=== PATIENT | female | born 1945 | race African-American/Black ===

== ENCOUNTER 2017-07-25 08:54 | Inpatient (IN) | payer MEDICARE, MEDICAID ==
--- NOTE | 2017-07-25 09:50 | RAD ---
PORTABLE CHEST 1 VIEW: Date: 07/25/17 Time: 0935 hours HISTORY: Dyspnea. FINDINGS: Comparison made with exam of 06/07/16. There are changes of median sternotomy. The heart is enlarged. The aorta is tortuous. The lungs are e xpanded without confluent areas of consolidation, pneumothorax, cheng pulmonary edema, or pleural eff usions. IMPRESSION: No acute process. POS: H
[2017-07-25 10:30] LABS: Troponin I 0.147 ng/mL (< 0.028)
[2017-07-25 10:37] LABS: ALT (SGPT) 27 U/L (8-55); AST (SGOT) 26 U/L (5-34); Albumin 3.6 g/dL (3.4-4.8); Alkaline Phosphatase 104 U/L (40-150); Anion Gap 16 mmol/L (10-20); BUN (Urea Nitrogen) 14 mg/dL (9.8-20.1); Bilirubin, Total 1.9 mg/dL (0.2-1.2); Calc. Creatinine Clearance 0 mL/min (70-130); Calcium 9.5 mg/dL (7.8-10.44); Carbon Dioxide 24 mmol/L (23-31); Chloride 102 mmol/L (98-107); Estimated GFR-MDRD 88; Globulin 4.1 g/dL (2.4-3.5); Glucose 105 mg/dL (83-110); Potassium 3.7 mmol/L (3.5-5.1); Protein, Total 7.7 g/dL (6.0-8.3); Sodium 138 mmol/L (136-145)
[2017-07-25 10:55] LABS: Hemoglobin 12.9 g/dL (12.0-16.0); Mean Corpuscular Volume 98.7 fl (81.0-99.0); Mean Platelet Volume 10.1 fL (7.4-10.4); Red Blood Cell (RBC) Count 4.32 mill/uL (4.20-5.40); White Blood Cell (WBC) Count 4.3 thou/uL (4.8-10.8)
[2017-07-25 10:57] LABS: Band 2 % (5-11); Lymphocytes 31 % (21-51); Monocytes 5 % (0-10); Neutrophil 62 % (42-75); Platelet Clumps MARKED
[2017-07-25 10:58] LABS: PLT Morphology Comment PLT clumps seen-ADEQ
[2017-07-25 10:59] LABS: MDiff Complete? YES
[2017-07-25] MEDS ORDERED: ISOVUE-370 76%-LOCM 1 ML ONE (11:13)
[2017-07-25] MEDS ORDERED: Furosemide 40 MG/4 ML VIAL ONE (11:43)
[2017-07-25] MEDS ORDERED: Dextrose 50% Abboject 50 ML SYRINGE SLOW IVP PRN (13:56)
[2017-07-25] MEDS ORDERED: Dextrose 5% in Water 1,000 ML IV PRN (13:56)
[2017-07-25 14:21] LABS: Troponin I 0.173 ng/mL (< 0.028)
--- NOTE | 2017-07-25 15:34 | HP ---
DATE OF ADMISSION: 07/25/2017 PRIMARY CARE PHYSICIAN: Dr. Xavier Leonard CHIEF COMPLAINT: Worsening shortness of breath and lower extremity swelling. HISTORY OF PRESENT ILLNESS: Ms. Smallwood is a very pleasant 72-year-old female with past medical histo ry of coronary artery disease, status post coronary artery bypass graft, as well as hypertension, dys lipidemia, diabetes, and peripheral vascular disease, who presented to the ER with the above-mentione d complaints. History is mainly obtained by the patient herself and electronic medical records have been reviewed. Case has been discussed with the admitting ER physician, Dr. Curtis. According to Ms. Smallwood, she was recently taken off of lot of her home medications including the wate r pill by her primary care physician, because of low blood pressure. This was done about a week ago. She started to feel bad about 4 days ago with worsening shortness of breath and increased swelling in her legs. She has also been feeling ill for the same amount of time with some increased cough, ge neralized weakness, and achiness. She denies any fever or chills. She denies any sick contacts. Sh e endorses orthopnea and PND. She denies any specific chest pain per se. With these symptoms, she p resented to the ER. In the emergency room, she was hemodynamically stable and had good oxygen saturation on room air. He r blood pressure was 115/80 with a heart rate in the 80s. Further workup included a chest x-ray, whi ch showed pulmonary vascular congestion and she was also found to have elevated BNP. For this reason , she was diagnosed with acute CHF and received Lasix x1 and is now being admitted with the same diag nosis. She was last admitted to our facility in 05/2016 under Cardiology Service for complaints of chest shai n and underwent a cardiac catheterization at that time. It was suspected that she has suffered an ST -elevation MS at that time. PAST MEDICAL HISTORY: 1. Coronary artery disease, status post coronary artery bypass graft. 2. Diabetes mellitus. 3. Dyslipidemia. 4. Morbid obesity. 5. Hypertension. 6. Peripheral vascular disease. PAST SURGICAL HISTORY: 1. Hysterectomy. 2. [place] [address] Day. 3. Carotid endarterectomy, 2016, with Dr. Carter. ALLERGIES: PENICILLIN. SOCIAL HISTORY: She has quit smoking more than 10 years ago. No history of drug, tobacco, or alcoho l abuse. She is and lives with her family. FAMILY HISTORY: Negative for any premature coronary artery disease. CURRENT MEDICATIONS: Unknown. The patient does not remember the name of her medications and she has not brought the medication list with her. REVIEW OF SYSTEMS: The following complete review of systems was negative, unless otherwise mentione d in the HPI or below: Constitutional: Weight loss or gain, ability to conduct usual activities. S kin: Rash, itching. Eyes: Double vision, pain. ENT/Mouth: Nose bleeding, neck stiffness, pain, t enderness. Cardiovascular: Palpitations, dyspnea on exertion, orthopnea. Respiratory: Shortness o f breath, wheezing, cough, hemoptysis, fever, or night sweats. Gastrointestinal: Poor appetite, abd ominal pain, heartburn, nausea, vomiting, constipation, or diarrhea. Genitourinary: Urgency, freque ncy, dysuria, nocturia. Musculoskeletal: Pain, swelling. Neurologic/Psychiatric: Anxiety, depress ion. Allergy/Immunologic: Skin rash, bleeding tendency. It is negative except for those mentioned in the history and physical. LABORATORY EXAMINATION: WBC is 4.3, hemoglobin 12.9, platelet count has not been reported, because t he platelets have clumped. D-dimer 0.58. Serum chemistry is unremarkable. Total bilirubin high at 1.9. Initial troponin 0.147 with CK-MB of 2.0. BNP almost 3000. Chest x-ray, by my review, has mil d pulmonary vascular congestion. A 12-lead EKG reportedly has no acute ST or T-wave changes. It is not available for my review at this time. PHYSICAL EXAMINATION: VITAL SIGNS: Blood pressure 115/80, saturating 98% on room air, heart rate in the 80s, afebrile. GENERAL EXAMINATION: In no acute distress. She reports that she is feeling much better now. Awake, alert, oriented x3. HEENT EXAMINATION: Mucous membrane is moist and pink. No oropharyngeal exudate or erythema. Head i s normocephalic, atraumatic. Pupils are equal and reactive to light and accommodation. Extraocular movements intact. NECK: Supple without any lymphadenopathy, JVD, or bruit. CHEST: Clear to auscultation without any wheezing, rales, or rhonchi. HEART: Rate and rhythm are regular without any murmur, rubs, or gallops. ABDOMEN: Obese, soft, nontender, nondistended. EXTREMITIES: Show pitting edema bilaterally extending from her toes to mid king. NEUROLOGICAL EXAMINATION: Nonfocal. SKIN: Free of any rashes or bruises. Feels warm and dry to touch. PSYCHIATRIC: Normal affect. IMPRESSION AND PLAN: 1. Dyspnea. This is most likely secondary to acute congestive heart failure exacerbation, as the pa yeny was recently taken off of her diuretics due to low blood pressure. We will restart her Lasix a nd she has received 1 dose of IV Lasix in the emergency room. We will give her one more dose of IV L asix today and continue the same tomorrow as well. We will repeat an echocardiogram, as her baseline cardiac function is unknown to me at this time. We will consult Cardiology for further recommendati on. Dr. More is her waste minimization technician. Also, given her elevated D-dimer, we will go ahead and obtain a C T angio to rule out pulmonary embolism, but the clinical possibility of the same is less. Also, [facility] a respiratory viral pathogen panel by PCR to rule out influenza, as it is highly prevalent in the [facility] at this time. Nothing to suggest pneumonia. We will monitor strict I's and O's and start h er on fluid-restricted heart healthy diet. We will also consult cardiac rehabilitation and [facility]. Continue her home medications, which include aspirin, statin, beta jerica, and FADIA inh ibitors. This will be reconciled once the list is available. 2. History of hypertension. Once again restart her home medications as tolerated. The patient give s history of low blood pressure and her medications will be titrated according to her blood pressure response in the hospital. 3. History of coronary artery disease. The patient used to be on aspirin along with statin, Plavix, FADIA inhibitor, and beta jerica. Once the dosages are confirmed, we will restart all of these. 4. Diabetes mellitus. We will restart her home medications once confirmed. For now, she will be st arted on insulin sliding scale with frequent Accu-Cheks. 5. Elevated troponin, most likely demand ischemia from acute congestive heart failure exacerbation. Continue to trend serial cardiac enzymes and start her on aspirin and reconfirm her home medications and restart them as well. Echocardiogram has been ordered as above. 6. Dyslipidemia. We will recheck her lipid panel and continue her statins. It seems like she was o n a statin along with Zetia. 7. Deep venous thrombosis and gastrointestinal prophylaxis. 8. P.r.n. medication orders. 9. Code status: FULL CODE, discussed with the patient. DISPOSITION: Ms. Smallwood is currently being admitted to the hospital for worsening dyspnea and possib le acute congestive heart failure exacerbation. Further management will depend upon her clinical cou rse. ESTIMATED LENGTH OF STAY: At this time is at least 2-3 midnights.
--- NOTE | 2017-07-25 15:41 | CT ---
CT ARTERIOGRAM CHEST WITH IV CONTRAST AND 3D MIP IMAGING: HISTORY: Dyspnea. Abnormal D-dimer. FINDINGS: There is good contrast opacification of the pulmonary arteries. Thoracic aorta is not yet opacified. There is calcification in the arterial structures. A small amount of bilateral pleural fluid is present. No pneumothorax or lobar consolidation. Nonen larged, nonspecific lymph nodes are scattered about the mediastinum. There are postoperative changes of the mediastinum. The inferiormost images show a hyperdense stone in the gallbladder lumen. IMPRESSION: 1. No CT evidence of pulmonary embolus. 2. Small bilateral pleural effusions. Cause is not evident. 3. Atherosclerosis. 4. Cholelithiasis. POS: [facility]
[2017-07-25] MEDS ORDERED: cloNIDine 0.1 MG TAB PO PRN (16:08)
[2017-07-25] MEDS ORDERED: Calcium Carbonate 500 MG ChewTAB PO PRN (16:08)
[2017-07-25] MEDS ORDERED: Senokot 8.6 MG TAB PO PRN (16:08)
[2017-07-25] MEDS ORDERED: Ondansetron HCl/PF 4 MG/2 ML Vial IVP PRN ×2 (16:08)
[2017-07-25] MEDS ORDERED: Acetaminophen 325 MG TAB PO PRN (16:08)
[2017-07-25] MEDS ORDERED: Furosemide 40 MG/4 ML VIAL SLOW IVP SCH (16:08)
[2017-07-25] MEDS ORDERED: Diabetic Tussin 200 MG/10 ML UDCUP PO PRN (16:08)
[2017-07-25] MEDS ORDERED: Nitroglycerin 0.4 MG TAB (25 Tab Bottle) SL PRN (16:08)
[2017-07-25] MEDS ORDERED: Loratadine 10 MG TAB PO PRN (16:08)
[2017-07-25] MEDS ORDERED: Mag-Al 1200 mg/1200 mg/30 ML UDCUP PO PRN (16:08)
[2017-07-25] MEDS ORDERED: hydrALAZINE 20 MG/ML VIAL SLOW IVP PRN (16:08)
[2017-07-25] MEDS ORDERED: Benzonatate 100 MG CAP PO PRN (16:08)
[2017-07-25] MEDS ORDERED: Bisacodyl 5 MG TAB PO PRN (16:08)
[2017-07-25 17:48] LABS: Troponin I 0.185 ng/mL (< 0.028)
[2017-07-25] MEDS ORDERED: FLU VACC TS2017-18 (>65YR) 0.5 ML SYRINGE IM ONE (18:30)
[2017-07-25] MEDS: traMADol HCl 50 MG TAB PO PRN ×2 (18:47→22:18)
[2017-07-25] MEDS: Famotidine 20 MG TAB PO SCH (22:18)
[2017-07-26] MEDS ORDERED: diphenhydrAMINE 12.5 MG/5 ML UDCUP PO PRN (02:50)
[2017-07-26] MEDS: traMADol HCl 50 MG TAB PO PRN (02:55)
--- NOTE | 2017-07-26 03:55 | CON ---
DATE OF CONSULTATION: 07/25/2017 REASON FOR CONSULTATION: Shortness of breath. PRIMARY AUTOMOTIVE ALIGNMENT SPECIALIST: Dr. Audie More. HISTORY OF PRESENT ILLNESS: Ms. Smallwood is a very pleasant 72-year-old woman who is a patient of Dr. Audie More. She was last seen in 2015. Her last catheterization was dated 06/03/2015. She did have an 80% mid LAD, 10% left main, 40% proximal LAD and 100% of the proximal RCA, vein graft to the first OM and second OM patent graft to the RCA patent, HACKETT to the LAD patent, although the left subclavia n artery has no disease. She recently states she has had increased shortness of breath over the last several weeks. No chest pain or pressure noted. She has been seen and evaluated by Dr. Xavier Leonard where he had been treatin g her as an outpatient. She did develop hypotension and her Lasix had been discontinued. She does s christiansen she began to accumulate fluid. PAST MEDICAL HISTORY: CAD status post bypass surgery, hyperlipidemia, diabetes mellitus, PVD, hyster ectomy, bypass x4, carotid endarterectomy. ALLERGIES: PENICILLIN. SOCIAL HISTORY: No current tobacco or alcohol use. REVIEW OF SYSTEMS: Ten-point review of systems is reviewed and is as above negative. PHYSICAL EXAMINATION: VITAL SIGNS: Blood pressure 114/62, pulse 89, temperature 98.4. GENERAL: Patient is a pleasant female who is in no acute distress. The patient appears his/her stat ed age. NEUROLOGIC: The patient is alert and oriented times 3 with no focal neurologic deficits. HEENT: Sclerae without icterus. Mouth has moist mucous membranes with normal pallor. NECK: No JVD. Carotid upstroke brisk. No bruits bilaterally. LUNGS: Clear to auscultation with unlabored respirations. BACK: No scoliosis or kyphosis. CARDIAC: Regular rate and rhythm with normal S1 and S2. No S3 or S4 noted. No significant rubs, murmurs, thrills, or gallops noted throughout the precordium. PMI is not displa geetha. There is no parasternal heave. ABDOMEN: Soft, nontender, nondistended. No peritoneal signs present. No hepatosplenomegaly. No abnormal striae. EXTREMITIES: A 2+ pitting edema. SKIN: No gross abnormalities. PERTINENT LABORATORY DATA: Hemoglobin 12.9, hematocrit 40.2, creatinine 0.78, peak troponin 0.185. IMPRESSION: 1. Shortness of breath. 2. Likely acute on chronic diastolic heart failure. 3. Coronary artery disease. 4. Status post bypass surgery. RECOMMENDATIONS: Ms. mSallwood has been appropriately placed on aspirin in addition to IV Lasix. We wi ll increase Lasix from 20 IV to 40 IV. She would benefit from beta jerica, but we will reassess aft er she has received Lasix. I would recommend an echo with Doppler. Further recommendations per Dr. Audie More in a.m.
[2017-07-26 05:31] LABS: Anion Gap 15 mmol/L (10-20); BUN (Urea Nitrogen) 16 mg/dL (9.8-20.1); Calc. Creatinine Clearance 85 mL/min (70-130); Calcium 9.3 mg/dL (7.8-10.44); Carbon Dioxide 27 mmol/L (23-31); Chloride 99 mmol/L (98-107); Estimated GFR-MDRD 75; Glucose 199 mg/dL (83-110); Potassium 3.8 mmol/L (3.5-5.1); Sodium 137 mmol/L (136-145)
[2017-07-26] MEDS ORDERED: Furosemide 20 MG/2 ML VIAL SLOW IVP SCH ×2 (06:00→12:30)
[2017-07-26 06:13] LABS: #Lymphocytes 1.4 thou/uL (1.20-3.40); #Monocytes 0.4 thou/uL (0.11-0.59); #Neutrophils 3.2 thou/uL (1.40-6.50); %Basophils 0.4 % (0.0-1.0); %Eosinophils 0.1 % (0.0-10.0); %Lymphocytes 28.3 % (21.0-51.0); %Monocytes 7.3 % (0.0-10.0); %Neutrophils 63.8 % (42.0-75.0); Hemoglobin 12.1 g/dL (12.0-16.0); MDiff Complete? YES; Mean Corpuscular HGB CONC 32.1 g/dL (32.0-36.0); Mean Corpuscular Volume 96.6 fl (81.0-99.0); Mean Platelet Volume 5.4 fL (7.4-10.4); PLT Morphology Comment Appears Adequate; Platelet Clumps SLIGHT; White Blood Cell (WBC) Count 4.9 thou/uL (4.8-10.8)
[2017-07-26] MEDS: Famotidine 20 MG TAB PO SCH ×2 (08:07→20:43)
[2017-07-26] MEDS: Enoxaparin Sodium 40 MG/0.4 ML SYRINGE SC SCH (08:07)
[2017-07-26] MEDS ORDERED: Aspirin 325 mg Enteric Coated Tablet PO SCH (09:00)
[2017-07-26] MEDS: HumaLOG 300 UNITS/3 ML VIAL SC PRN ×2 (11:41→18:13)
[2017-07-26] MEDS ORDERED: Metolazone 5 MG TAB PO SCH (12:30)
[2017-07-26] MEDS: Furosemide 40 MG/4 ML VIAL SLOW IVP SCH (13:11)
--- NOTE | 2017-07-26 15:27 | PDOC.PN ---
- Subjective Encounter Start Date: 07/26/17 Encounter Start Time: 15:25 Subjective: feels much better today. -: breathing easier - Objective MAR Reviewed: Yes Vital Signs & Weight: Vital Signs (12 hours) Temp Pulse Resp BP Pulse Ox 07/26/17 11:32 98.0 F 87 16 98/61 98 07/26/17 08:00 97.9 F 78 16 94/60 97 07/26/17 06:18 80 117/68 07/26/17 04:00 97.3 F L 93 16 97/60 98 Weight Admit Weight 208 lb Weight 207 lb 1.6 oz I&O: 07/25/17 07/26/17 07/27/17 06:59 06:59 06:59 Intake Total 480 Output Total 450 Balance 30 Result Diagrams: 07/26/17 04:41 07/26/17 04:41 Additional Labs: Accuchecks 07/26/17 07/26/17 07/25/17 11:19 06:14 20:01 POC Glucose 185 H 165 H 148 H Laboratory Tests 07/25/17 07/25/17 07/25/17 09:54 09:54 13:45 Troponin I 0.147 H 0.173 H B-Natriuretic Peptide 2942.1 H 07/25/17 07/26/17 17:18 04:41 Troponin I 0.185 H B-Natriuretic Peptide 2693.2 H Phys Exam - Physical Examination Constitutional: NAD HEENT: PERRLA, moist MMs, sclera anicteric, oral pharynx no lesions Neck: no nodes, no JVD, supple, full ROM Respiratory: no wheezing, no rales, no rhonchi, clear to auscultation bilateral Cardiovascular: RRR, no significant murmur Gastrointestinal: soft, non-tender, no distention, positive bowel sounds Musculoskeletal: no edema, pulses present Neurological: non-focal, normal sensation, moves all 4 limbs Psychiatric: normal affect, A&O x 3 Skin: no rash Dx/Plan (1) Acute hypoxemic respiratory failure Code(s): J96.01 - ACUTE RESPIRATORY FAILURE WITH HYPOXIA Status: Acute (2) Acute CHF Code(s): I50.9 - HEART FAILURE, UNSPECIFIED Status: Acute Qualifiers: Heart failure type: diastolic Qualified Code(s): I50.31 - Acute diastolic ( congestive) heart failure (3) Demand ischemia Code(s): I24.8 - OTHER FORMS OF ACUTE ISCHEMIC HEART DISEASE Status: Acute (4) DMII (diabetes mellitus, type 2) Status: Chronic (5) HTN (hypertension), benign Code(s): I10 - ESSENTIAL (PRIMARY) HYPERTENSION Status: Chronic (6) CAD (coronary artery disease) Code(s): I25.10 - ATHSCL HEART DISEASE OF [place] CORONARY ARTERY W/O ANG PCTRS Status: Chronic (7) PAD (peripheral artery disease) Code(s): I73.9 - PERIPHERAL VASCULAR DISEASE, UNSPECIFIED Status: Chronic - Plan DVT proph w/SCDs cont diuresis.incraese lasix.minimal diuresis .appreciate cradiology input -: home meds as below. BB & FADIA-I on hold d/t low BP.cont ASA -: am labs.Hemodynamically stable. * . Review of Systems - Review of Systems Constitutional: negative: fever, chills, sweats, weakness, malaise, other ENT: negative: Ear Pain, Ear Discharge, Nose Pain, Nose Discharge, Nose Congestion, Mouth Pain, Mouth Swelling, Throat Pain, Throat Swelling, Other Respiratory: SOB with Excertion. negative: Cough, Dry, Shortness of Breath, Hemoptysis, Pleuritic Pain, Sputum, Wheezing Cardiovascular: negative: chest pain, palpitations, orthopnea, paroxysmal nocturnal dyspnea, edema, light headedness, other Gastrointestinal: negative: Nausea, Vomiting, Abdominal Pain, Diarrhea, Constipation, Melena, Hematochezia, Other Genitourinary: negative: Dysuria, Frequency, Incontinence, Hematuria, Retention , Other Musculoskeletal: negative: Neck Pain, Shoulder Pain, Arm Pain, Back Pain, Hand Pain, Leg Pain, Foot Pain, Other Neurological: negative: Weakness, Numbness, Incoordination, Change in Speech, Confusion, Seizures, Other - Medications/Allergies Allergies/Adverse Reactions: Allergies Allergy/AdvReac Type Severity Reaction Status Date / Time Penicillins Allergy Rash Verified 07/25/17 18:07 Medications: Current Medications Acetaminophen (Tylenol) 650 mg PO Q4H PRN PRN Reason: Headache/Fever or Pain Al Hydroxide/Mg Hydroxide (Maalox) 30 ml PO Q6H PRN PRN Reason: Heartburn or Indigestion Aspirin (Ecotrin) 325 mg PO DAILY [facility] Atorvastatin Calcium (Lipitor) 40 mg PO HS [facility] Benzonatate (Tessalon) 100 mg PO Q4H PRN PRN Reason: Cough Bisacodyl (Dulcolax) 10 mg PO DAILYPRN PRN PRN Reason: Constipation Calcium Carbonate (Tums) 1,000 mg PO Q4H PRN PRN Reason: Heartburn or Indigestion Clonidine (Catapres) 0.1 mg PO Q4H PRN PRN Reason: Systolic BP > 180 Dextrose/Water (Dextrose 50%) 25 gm SLOW IVP PRN PRN PRN Reason: Hypoglycemia Diphenhydramine HCl (Benadryl) 12.5 mg PO Q6H PRN PRN Reason: Itching & Insomnia Last Admin: 07/26/17 02:54 Dose: 12.5 mg Enoxaparin Sodium (Lovenox) 40 mg SC 0900 [facility] Last Admin: 07/26/17 08:07 Dose: 40 mg Famotidine (Pepcid) 20 mg PO BID [facility] Last Admin: 07/26/17 08:07 Dose: 20 mg Furosemide (Lasix) 40 mg SLOW IVP 0600,1400 [facility] Last Admin: 07/26/17 13:11 Dose: 40 mg Glucagon (Glucagon) 1 mg IM PRN PRN PRN Reason: Hypoglycemia Guaifenesin (Robitussin Sf) 200 mg PO Q4H PRN PRN Reason: Cough Hydralazine HCl (Apresoline) 10 mg SLOW IVP Q4H PRN PRN Reason: Systolic BP > 180 Dextrose/Water (D5w) 1,000 mls @ 0 mls/hr IV .Q0M PRN; As Directed PRN Reason: Hypoglycemia Insulin Human Lispro (Humalog) 0 units SC .MODERATE SLIDING SC PRN PRN Reason: Moderate Correctional Scale Last Admin: 07/26/17 11:41 Dose: 2 units Insulin Human Lispro (Humalog) 0 units SC .BEDTIME SLIDING SC PRN PRN Reason: Bedtime Correctional Scale Loratadine (Claritin) 10 mg PO DAILYPRN PRN PRN Reason: Sinus Symptoms Nitroglycerin (Nitrostat) 0.4 mg SL Q5MIN PRN PRN Reason: Chest Pain Ondansetron HCl (Zofran) 4 mg IVP Q6H PRN PRN Reason: Nausea/Vomiting Last Admin: 07/26/17 03:53 Dose: 4 mg Ondansetron HCl (Zofran) 4 mg IVP Q6H PRN PRN Reason: Nausea/Vomiting Senna (Senokot) 2 tab PO HSPRN PRN PRN Reason: Constipation Tramadol HCl (Ultram) 50 mg PO Q4H PRN PRN Reason: Moderate Pain (4-6) Last Admin: 07/26/17 02:55 Dose: 50 mg
--- NOTE | 2017-07-26 16:31 | PDOC.CTH ---
<Molly Alba - Last Filed: 07/26/17 16:25> Cardiology Progress Note - Subjective The pt seen and examined. No overnight events. No cardiac complaints. She stated her breathing and BLE edema have improved since she started taking Lasix IV. - Objective Vital Signs Temp Pulse Pulse Pulse Resp BP BP 07/26/17 14:00 83 93 100/70 98/60 07/26/17 11:32 98.0 F 87 16 07/26/17 08:00 97.9 F 78 16 07/26/17 06:18 80 BP Pulse Ox Pulse Ox Pulse Ox 07/26/17 14:00 99 99 07/26/17 11:32 98/61 98 07/26/17 08:00 94/60 97 07/26/17 06:18 117/68 Admit Weight 208 lb Weight 207 lb 1.6 oz 07/25/17 07/26/17 07/27/17 06:59 06:59 06:59 Intake Total 480 Output Total 450 Balance 30 - Physical Examination General/Neuro: alert & oriented x3 Neck: no JVD present Lungs: CTA (diminished at bases), other: Heart: RRR Abdomen: soft Extremities: other: (2-3+ pitting edema to BLE) - Telemetry Telemetry Rhythm: SR - Labs Result Diagrams: 07/26/17 04:41 07/26/17 04:41 Troponin/CKMB CK-MB (CK-2) 2.0 ng/mL (0-6.6) 07/25/17 09:54 Troponin I 0.185 ng/mL (< 0.028) H 07/25/17 17:18 - Assessment/Plan 1. 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 monitor 2. CAD with Hx of CABG x4 in 2004 and cardac cath in 2016 showed EF 30% and severe Lt subq stenosis prior to take of HACKETT; on Lovenox and ASA, but no Bblocker or FADIA 3. HTN - Bblocker and FADIA are on hold due to hypotensive; cont. monitor 4. PAD - possible aortogram with Runoff as outpt. 5.Hyperlipidemia - on Statin 6. DM type 2 - on ACHS BG check with SS Insulin; managed by PCP 7. Hx of Lt CEA in 2016 - stable 8. 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 - CT ABD in 12/2016 showed 1.6x1.3x1.3 mass to Rt interpoler kidney MAR reviewed Review of Systems - Review of Systems Constitutional: reports: no symptoms reported EENTM: reports: no symptoms reported Respiratory: reports: see HPI Cardiac (ROS): reports: no symptoms reported ABD/GI: reports: no symptoms reported : reports: no symptoms reported Musculoskeletal: reports: no symptoms reported Skin: reports: no symptoms reported <Nadir More - Last Filed: 07/26/17 23:15> Cardiology Progress Note - Objective Vital Signs Temp Pulse Pulse Pulse Resp BP BP 07/26/17 19:45 98.3 F 85 18 07/26/17 15:23 98.2 F 78 16 07/26/17 14:00 83 93 100/70 98/60 07/26/17 11:32 98.0 F 87 16 BP Pulse Ox Pulse Ox Pulse Ox 07/26/17 19:45 100/57 L 99 07/26/17 15:23 110/56 L 97 07/26/17 14:00 99 99 07/26/17 11:32 98/61 98 Admit Weight 208 lb Weight 207 lb 1.6 oz 07/25/17 07/26/17 07/27/17 06:59 06:59 06:59 Intake Total 480 360 Output Total 450 1500 Balance 30 -1140 - Labs Result Diagrams: 07/26/17 04:41 07/26/17 04:41 Troponin/CKMB CK-MB (CK-2) 2.0 ng/mL (0-6.6) 07/25/17 09:54 Troponin I 0.185 ng/mL (< 0.028) H 07/25/17 17:18 - Assessment/Plan Pt. seen and eval. by me. I agree with the A/P by the [employer]SEMBLER. She is still vol. overloaded. Will continue diuresis. Chest : clear,RRR.
[2017-07-26] MEDS: Atorvastatin Calcium 40 MG TAB PO SCH (20:43)
[2017-07-27] MEDS: HumaLOG 300 UNITS/3 ML VIAL SC PRN ×3 (00:50→17:01)
[2017-07-27] MEDS: Furosemide 40 MG/4 ML VIAL SLOW IVP SCH ×2 (05:39→13:53)
[2017-07-27] MEDS: Famotidine 20 MG TAB PO SCH ×2 (08:17→20:24)
[2017-07-27] MEDS: Enoxaparin Sodium 40 MG/0.4 ML SYRINGE SC SCH (08:17)
[2017-07-27] MEDS: Aspirin 325 mg Enteric Coated Tablet PO SCH (08:17)
--- NOTE | 2017-07-27 12:58 | PDOC.PN ---
- Subjective Encounter Start Date: 07/27/17 Encounter Start Time: 12:56 Subjective: feels much better. breathing improved -: still some swelling in legs but improving - Objective MAR Reviewed: Yes Vital Signs & Weight: Vital Signs (12 hours) Temp Pulse Resp BP Pulse Ox 07/27/17 11:44 98 F 82 16 97/56 L 95 07/27/17 08:00 98.8 F 81 16 97 07/27/17 07:41 98.8 F 81 16 100/61 97 07/27/17 05:50 99/68 07/27/17 04:00 98.1 F 83 18 90/50 L 94 L Weight Admit Weight 208 lb Weight 200 lb I&O: 07/26/17 07/27/17 07/28/17 06:59 06:59 06:59 Intake Total 480 720 Output Total 450 1850 Balance 30 -1130 Result Diagrams: 07/26/17 04:41 07/26/17 04:41 Additional Labs: Accuchecks 07/27/17 07/27/17 07/26/17 11:20 05:23 20:09 POC Glucose 196 H 134 H 222 H 07/26/17 16:42 POC Glucose 194 H Phys Exam - Physical Examination Constitutional: NAD HEENT: PERRLA, moist MMs, sclera anicteric, oral pharynx no lesions Neck: no nodes, no JVD, supple, full ROM Respiratory: no wheezing, no rales, no rhonchi, clear to auscultation bilateral Cardiovascular: RRR, no significant murmur Gastrointestinal: soft, non-tender, no distention, positive bowel sounds Musculoskeletal: pulses present, edema present (+2 b/l legs) Neurological: non-focal, normal sensation, moves all 4 limbs Psychiatric: normal affect, A&O x 3 Skin: no rash Dx/Plan (1) Acute CHF Code(s): I50.9 - HEART FAILURE, UNSPECIFIED Status: Acute Qualifiers: Heart failure type: diastolic Qualified Code(s): I50.31 - Acute diastolic ( congestive) heart failure (2) Demand ischemia Code(s): I24.8 - OTHER FORMS OF ACUTE ISCHEMIC HEART DISEASE Status: Acute (3) Acute hypoxemic respiratory failure Code(s): J96.01 - ACUTE RESPIRATORY FAILURE WITH HYPOXIA Status: Resolved (4) DMII (diabetes mellitus, type 2) Status: Chronic (5) HTN (hypertension), benign Code(s): I10 - ESSENTIAL (PRIMARY) HYPERTENSION Status: Chronic (6) CAD (coronary artery disease) Code(s): I25.10 - ATHSCL HEART DISEASE OF [place] CORONARY ARTERY W/O ANG PCTRS Status: Chronic (7) PAD (peripheral artery disease) Code(s): I73.9 - PERIPHERAL VASCULAR DISEASE, UNSPECIFIED Status: Chronic - Plan PT/OT, social sciences chair, incentive spirometry, out of bed/ambulate, DVT proph w/ SCDs Cont lasix 40 IV BID for now. BP holding steady.good diuresis -: ECHO pending. -: BB and FADIA-I on hold d/t low BP.will need restarting,even at low doses -: cardiology following. appreciate input. -: cont ASA,statin.monitor renal Fx * . Review of Systems - Review of Systems Constitutional: negative: fever, chills, sweats, weakness, malaise, other ENT: negative: Ear Pain, Ear Discharge, Nose Pain, Nose Discharge, Nose Congestion, Mouth Pain, Mouth Swelling, Throat Pain, Throat Swelling, Other Respiratory: SOB with Excertion. negative: Cough, Dry, Shortness of Breath, Hemoptysis, Pleuritic Pain, Sputum, Wheezing Cardiovascular: negative: chest pain, palpitations, orthopnea, paroxysmal nocturnal dyspnea, edema, light headedness, other Gastrointestinal: negative: Nausea, Vomiting, Abdominal Pain, Diarrhea, Constipation, Melena, Hematochezia, Other Genitourinary: negative: Dysuria, Frequency, Incontinence, Hematuria, Retention , Other Musculoskeletal: negative: Neck Pain, Shoulder Pain, Arm Pain, Back Pain, Hand Pain, Leg Pain, Foot Pain, Other Skin: negative: Rash, Lesions, Alessandro, Bruising, Other Neurological: negative: Weakness, Numbness, Incoordination, Change in Speech, Confusion, Seizures, Other - Medications/Allergies Allergies/Adverse Reactions: Allergies Allergy/AdvReac Type Severity Reaction Status Date / Time Penicillins Allergy Rash Verified 07/25/17 18:07 Medications: Current Medications Acetaminophen (Tylenol) 650 mg PO Q4H PRN PRN Reason: Headache/Fever or Pain Al Hydroxide/Mg Hydroxide (Maalox) 30 ml PO Q6H PRN PRN Reason: Heartburn or Indigestion Aspirin (Ecotrin) 325 mg PO DAILY [facility] Last Admin: 07/27/17 08:17 Dose: 325 mg Atorvastatin Calcium (Lipitor) 40 mg PO HS [facility] Last Admin: 07/26/17 20:43 Dose: 40 mg Benzonatate (Tessalon) 100 mg PO Q4H PRN PRN Reason: Cough Bisacodyl (Dulcolax) 10 mg PO DAILYPRN PRN PRN Reason: Constipation Calcium Carbonate (Tums) 1,000 mg PO Q4H PRN PRN Reason: Heartburn or Indigestion Clonidine (Catapres) 0.1 mg PO Q4H PRN PRN Reason: Systolic BP > 180 Dextrose/Water (Dextrose 50%) 25 gm SLOW IVP PRN PRN PRN Reason: Hypoglycemia Diphenhydramine HCl (Benadryl) 12.5 mg PO Q6H PRN PRN Reason: Itching & Insomnia Last Admin: 07/26/17 02:54 Dose: 12.5 mg Enoxaparin Sodium (Lovenox) 40 mg SC 0900 [facility] Last Admin: 07/27/17 08:17 Dose: 40 mg Famotidine (Pepcid) 20 mg PO BID [facility] Last Admin: 07/27/17 08:17 Dose: 20 mg Furosemide (Lasix) 40 mg SLOW IVP 0600,1400 [facility] Last Admin: 07/27/17 05:39 Dose: 40 mg Glucagon (Glucagon) 1 mg IM PRN PRN PRN Reason: Hypoglycemia Guaifenesin (Robitussin Sf) 200 mg PO Q4H PRN PRN Reason: Cough Hydralazine HCl (Apresoline) 10 mg SLOW IVP Q4H PRN PRN Reason: Systolic BP > 180 Dextrose/Water (D5w) 1,000 mls @ 0 mls/hr IV .Q0M PRN; As Directed PRN Reason: Hypoglycemia Insulin Human Lispro (Humalog) 0 units SC .MODERATE SLIDING SC PRN PRN Reason: Moderate Correctional Scale Last Admin: 07/27/17 11:48 Dose: 2 units Insulin Human Lispro (Humalog) 0 units SC .BEDTIME SLIDING SC PRN PRN Reason: Bedtime Correctional Scale Loratadine (Claritin) 10 mg PO DAILYPRN PRN PRN Reason: Sinus Symptoms Nitroglycerin (Nitrostat) 0.4 mg SL Q5MIN PRN PRN Reason: Chest Pain Ondansetron HCl (Zofran) 4 mg IVP Q6H PRN PRN Reason: Nausea/Vomiting Last Admin: 07/26/17 03:53 Dose: 4 mg Ondansetron HCl (Zofran) 4 mg IVP Q6H PRN PRN Reason: Nausea/Vomiting Senna (Senokot) 2 tab PO HSPRN PRN PRN Reason: Constipation Tramadol HCl (Ultram) 50 mg PO Q4H PRN PRN Reason: Moderate Pain (4-6) Last Admin: 07/26/17 02:55 Dose: 50 mg
--- NOTE | 2017-07-27 13:59 | PDOC.CTH ---
Cardiology Progress Note - Objective Vital Signs Temp Pulse Resp BP Pulse Ox 07/27/17 11:44 98 F 82 16 97/56 L 95 07/27/17 08:00 98.8 F 81 16 97 07/27/17 07:41 98.8 F 81 16 100/61 97 07/27/17 05:50 99/68 07/27/17 04:00 98.1 F 83 18 90/50 L 94 L Admit Weight 208 lb Weight 200 lb 07/26/17 07/27/17 07/28/17 06:59 06:59 06:59 Intake Total 480 720 Output Total 450 1850 Balance 30 -1130 - Physical Examination General/Neuro: alert & oriented x3 Neck: carotid US brisk Lungs: CTA Heart: RRR Abdomen: NT/ND, soft Extremities: + edema B - Labs Result Diagrams: 07/26/17 04:41 07/26/17 04:41 Troponin/CKMB CK-MB (CK-2) 2.0 ng/mL (0-6.6) 07/25/17 09:54 Troponin I 0.185 ng/mL (< 0.028) H 07/25/17 17:18 - Assessment/Plan 1. 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 monitor. Order echo. 2. CAD with Hx of CABG x4 in 2003 and cardac cath in 2016 showed EF 30% and severe Lt subq stenosis prior to take of HACKETT; on Lovenox and ASA, but no Bblocker or FADIA 3. HTN - Bblocker and FADIA are on hold due to hypotensive; cont. monitor 4. PAD - possible aortogram with Runoff as outpt. 5.Hyperlipidemia - on Statin 6. DM type 2 - on ACHS BG check with SS Insulin; managed by PCP 7. Hx of Lt CEA in 2016 - stable 8. 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 - CT ABD in 12/2016 showed 1.6x1.3x1.3 mass to Rt interpoler kidney MAR reviewed Review of Systems - Review of Systems Respiratory: reports: no symptoms reported Cardiac (ROS): reports: no symptoms reported ABD/GI: reports: no symptoms reported : reports: no symptoms reported Musculoskeletal: reports: other (left hip pain.) Neurological: reports: no symptoms reported
[2017-07-27] MEDS: traMADol HCl 50 MG TAB PO PRN (14:01)
[2017-07-27] MEDS: Atorvastatin Calcium 40 MG TAB PO SCH (20:25)
[2017-07-28] MEDS: Furosemide 40 MG/4 ML VIAL SLOW IVP SCH ×2 (05:17→14:31)
[2017-07-28 05:59] LABS: Anion Gap 13 mmol/L (10-20); BUN (Urea Nitrogen) 18 mg/dL (9.8-20.1); Calc. Creatinine Clearance 89 mL/min (70-130); Carbon Dioxide 31 mmol/L (23-31); Chloride 97 mmol/L (98-107); Estimated GFR-MDRD 82; Glucose 152 mg/dL (83-110); Potassium 3.5 mmol/L (3.5-5.1); Sodium 137 mmol/L (136-145)
[2017-07-28] MEDS: Carvedilol 3.125 MG TAB PO SCH ×2 (08:20→16:58)
[2017-07-28] MEDS: Aspirin 325 mg Enteric Coated Tablet PO SCH (08:20)
[2017-07-28] MEDS: Famotidine 20 MG TAB PO SCH ×2 (08:20→21:27)
[2017-07-28] MEDS: Enoxaparin Sodium 40 MG/0.4 ML SYRINGE SC SCH (08:20)
[2017-07-28 09:21] LABS: Band 2 % (5-11); Burr Cells SLIGHT = 2-5 cells (100X) (0-1/hpf); Hemoglobin 11.9 g/dL (12.0-16.0); Lymphocytes 27 % (21-51); MDiff Complete? YES; Mean Corpuscular HGB CONC 31.3 g/dL (32.0-36.0); Mean Corpuscular Hemoglobin 30.6 pg (27.0-31.0); Mean Corpuscular Volume 97.5 fl (81.0-99.0); Mean Platelet Volume 10.4 fL (7.4-10.4); Monocytes 2 % (0-10); Neutrophil 68 % (42-75); Ovalocytes SLIGHT = 2-5 cells (100X) (0-1/hpf); PLT Morphology Comment PLT clumps seen-ADEQ; Platelet Clumps MARKED; RBC Distribution Width 15.2 % (11.5-14.5); Reactive Lymphocytes 1 % (0-10); Red Blood Cell (RBC) Count 3.89 mill/uL (4.20-5.40); White Blood Cell (WBC) Count 4.3 thou/uL (4.8-10.8)
--- NOTE | 2017-07-28 10:00 | PDOC.CTH ---
Cardiology Progress Note - Objective Vital Signs Temp Pulse Resp BP Pulse Ox 07/28/17 07:20 98 F 89 16 95 07/28/17 06:58 98 F 89 16 97/55 L 95 07/28/17 03:37 98.0 F 84 18 111/65 97 Admit Weight 208 lb Weight 199 lb 9 oz 07/27/17 07/28/17 07/29/17 06:59 06:59 06:59 Intake Total 720 920 Output Total 1850 1675 Balance -1130 -755 - Physical Examination General/Neuro: alert & oriented x3 Neck: other: (bilat. carotid bruits. s/p left CEA.) Lungs: CTA Heart: RRR Abdomen: NT/ND Extremities: other: (mild edema. No palpable pulse in the right radial. Left is normal.Can not palpate pedal pulses.) - Labs Result Diagrams: 07/28/17 05:27 07/28/17 05:27 Troponin/CKMB CK-MB (CK-2) 2.0 ng/mL (0-6.6) 07/25/17 09:54 Troponin I 0.185 ng/mL (< 0.028) H 07/25/17 17:18 - Assessment/Plan 1. 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 Not on an FADIA due to hypotensitve; cont. monitor. Echo indicates severe decr. in EF, 10-15%. 2. CAD with Hx of CABG x4 in 2004 and cardac cath in 2016 showed EF 30% and severe Lt subq stenosis prior to take of HACKETT; on Lovenox and ASA, on Bblocker 3. HTN - Bblocker and FADIA are on hold due to hypotensive; cont. monitor 4. PAD - possible aortogram with Runoff as outpt.in the future. She has diffuse disease. BY prior CTA she has bilateral ostial subclavian stenosis. This was also documented by cath in 2016 with subtotal ostial subclavian stenosis. the HACKETT arises from this vessel. Competitive filling of the distal LAD was seen on the [place] LAD injections indicating that the flow was at least adequate.This may not be the case now and she may not have adequate flow down the HACKETT to perfuse the distal LAD. The best option may be to do a repeat cath and see if the proximal LAD would be a target for stent placement. 5.Hyperlipidemia - on Statin 6. DM type 2 - on ACHS BG check with SS Insulin; managed by PCP 7. Hx of Lt CEA in 2015 - stable 8. 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 9. Severe decrease in LV systolic function, EF 10-15%. She meetes the criteria for an AICD. Will discuss with EP. SALLY reviewed Review of Systems - Review of Systems EENTM: reports: no symptoms reported Respiratory: reports: no symptoms reported Cardiac (ROS): reports: no symptoms reported ABD/GI: reports: no symptoms reported
[2017-07-28] MEDS ORDERED: Communication Order-Pharmacy FS SCH (10:15)
[2017-07-28] MEDS: HumaLOG 300 UNITS/3 ML VIAL SC PRN ×2 (11:45→16:59)
--- NOTE | 2017-07-28 12:19 | ULT ---
BILATERAL RENAL ULTRASOUND: Date: 07/28/17 HISTORY: Renal mass. FINDINGS: The right kidney measures 10.2 cm in length and the left kidney measures 10.0 cm in length. No hydron ephrosis seen on either side. There is a 1.0 cm cyst in the left kidney. Urinary bladder grossly unre markable with a volume of 88.5 mL. IMPRESSION: Left renal cyst. POS: JOSE
--- NOTE | 2017-07-28 13:32 | PDOC.CTH ---
Cardiology Progress Note - Objective Vital Signs Temp Pulse Resp BP Pulse Ox 07/28/17 11:11 98.2 F 82 16 119/57 L 95 07/28/17 07:20 98 F 89 16 95 07/28/17 06:58 98 F 89 16 97/55 L 95 07/28/17 03:37 98.0 F 84 18 111/65 97 Admit Weight 208 lb Weight 199 lb 9 oz 07/27/17 07/28/17 07/29/17 06:59 06:59 06:59 Intake Total 720 920 Output Total 1850 1135 Balance -1130 -075 - Labs Result Diagrams: 07/28/17 05:27 07/28/17 05:27 Troponin/CKMB CK-MB (CK-2) 2.0 ng/mL (0-6.6) 07/25/17 09:54 Troponin I 0.185 ng/mL (< 0.028) H 07/25/17 17:18 - Assessment/Plan <Cardiology service Note: addendum> Cancel Cardiac cath tomorrow and order CTA Neck with and w/o contrast to evaluate Bialt carotid and subclavian arteries, and evaluate blood flow @ HACKETT
--- NOTE | 2017-07-28 14:02 | PDOC.PN ---
- Subjective Encounter Start Date: 07/28/17 Encounter Start Time: 14:01 Subjective: feels a little tired but o/w OK. -: breathing easier - Objective MAR Reviewed: Yes Vital Signs & Weight: Vital Signs (12 hours) Temp Pulse Resp BP Pulse Ox 07/28/17 11:11 98.2 F 82 16 119/57 L 95 07/28/17 07:20 98 F 89 16 95 07/28/17 06:58 98 F 89 16 97/55 L 95 07/28/17 03:37 98.0 F 84 18 111/65 97 Weight Admit Weight 208 lb Weight 199 lb 9 oz I&O: 07/27/17 07/28/17 07/29/17 06:59 06:59 06:59 Intake Total 720 920 Output Total 1850 1675 Balance -1130 -755 Result Diagrams: 07/28/17 05:27 07/28/17 05:27 Additional Labs: Accuchecks 07/28/17 07/28/17 07/27/17 11:36 06:03 20:34 POC Glucose 177 H 134 H 138 H 07/27/17 16:37 POC Glucose 193 H Microbiology 07/25/17 20:20 Nasopharyngeal swab Respiratory Panel (PCR) - Final negative Radiology Reviewed by me: Yes (ECHO-EF 10-15%.Mod-severe ) Phys Exam - Physical Examination Constitutional: NAD HEENT: PERRLA, moist MMs, sclera anicteric, oral pharynx no lesions Neck: no nodes, no JVD, supple, full ROM Respiratory: no wheezing, no rales, no rhonchi, clear to auscultation bilateral Cardiovascular: RRR, no significant murmur Gastrointestinal: soft, non-tender, no distention, positive bowel sounds Musculoskeletal: pulses present, edema present Neurological: non-focal, normal sensation, moves all 4 limbs Psychiatric: normal affect, A&O x 3 Skin: no rash Dx/Plan (1) Acute CHF Code(s): I50.9 - HEART FAILURE, UNSPECIFIED Status: Acute Qualifiers: Heart failure type: diastolic Qualified Code(s): I50.31 - Acute diastolic ( congestive) heart failure (2) Demand ischemia Code(s): I24.8 - OTHER FORMS OF ACUTE ISCHEMIC HEART DISEASE Status: Acute (3) DMII (diabetes mellitus, type 2) Status: Chronic (4) HTN (hypertension), benign Code(s): I10 - ESSENTIAL (PRIMARY) HYPERTENSION Status: Chronic (5) CAD (coronary artery disease) Code(s): I25.10 - ATHSCL HEART DISEASE OF [place] CORONARY ARTERY W/O ANG PCTRS Status: Chronic (6) PAD (peripheral artery disease) Code(s): I73.9 - PERIPHERAL VASCULAR DISEASE, UNSPECIFIED Status: Chronic (7) Acute hypoxemic respiratory failure Code(s): J96.01 - ACUTE RESPIRATORY FAILURE WITH HYPOXIA Status: Resolved (8) Cardiomyopathy Code(s): I42.9 - CARDIOMYOPATHY, UNSPECIFIED Status: Acute Qualifiers: Cardiomyopathy type: ischemic Qualified Code(s): I25.5 - Ischemic cardiomyopathy (9) H/O carotid artery stenosis Code(s): Z86.79 - PERSONAL HISTORY OF OTHER DISEASES OF THE CIRCULATORY SYSTEM Status: Chronic - Plan PT/OT, respiratory therapy, incentive spirometry, out of bed/ambulate, DVT proph w/SCDs New diagnosis of cardiomyopathy.? ischemic.will need Cath -: d/w Dr. More.h/o L.subclavian stenosis-needs to be worked up before cath -: ? renal mass.No CT found in [facility] from 2017 w same results -: will order Renal US. -: HD tsbale.Tolerating diuresis @ current dose & low dose BB * .FADIA-I/ARB & Aldactone not started due to marginal BP. may be added later once off of IV diuresis * Will need Life _vest /AICD * Monitor labs. * appreciate cardiology input Review of Systems - Review of Systems Eyes: negative: Pain, Vision Change, Conjunctivae Inflammation, Eyelid Inflammation, Redness, Other ENT: negative: Ear Pain, Ear Discharge, Nose Pain, Nose Discharge, Nose Congestion, Mouth Pain, Mouth Swelling, Throat Pain, Throat Swelling, Other Respiratory: SOB with Excertion. negative: Cough, Dry, Shortness of Breath, Hemoptysis, Pleuritic Pain, Sputum, Wheezing Cardiovascular: edema. negative: chest pain, palpitations, orthopnea, paroxysmal nocturnal dyspnea, light headedness, other Gastrointestinal: negative: Nausea, Vomiting, Abdominal Pain, Diarrhea, Constipation, Melena, Hematochezia, Other Genitourinary: negative: Dysuria, Frequency, Incontinence, Hematuria, Retention , Other Musculoskeletal: negative: Neck Pain, Shoulder Pain, Arm Pain, Back Pain, Hand Pain, Leg Pain, Foot Pain, Other Skin: negative: Rash, Lesions, Alessandro, Bruising, Other Neurological: negative: Weakness, Numbness, Incoordination, Change in Speech, Confusion, Seizures, Other - Medications/Allergies Allergies/Adverse Reactions: Allergies Allergy/AdvReac Type Severity Reaction Status Date / Time Penicillins Allergy Rash Verified 07/25/17 18:07 Medications: Current Medications Acetaminophen (Tylenol) 650 mg PO Q4H PRN PRN Reason: Headache/Fever or Pain Al Hydroxide/Mg Hydroxide (Maalox) 30 ml PO Q6H PRN PRN Reason: Heartburn or Indigestion Aspirin (Ecotrin) 325 mg PO DAILY [facility] Last Admin: 07/28/17 08:20 Dose: 325 mg Atorvastatin Calcium (Lipitor) 40 mg PO HS [facility] Last Admin: 07/27/17 20:25 Dose: 40 mg Benzonatate (Tessalon) 100 mg PO Q4H PRN PRN Reason: Cough Bisacodyl (Dulcolax) 10 mg PO DAILYPRN PRN PRN Reason: Constipation Calcium Carbonate (Tums) 1,000 mg PO Q4H PRN PRN Reason: Heartburn or Indigestion Carvedilol (Coreg) 1.5625 mg PO BID[facility] Last Admin: 07/28/17 08:20 Dose: 1.5625 mg Clonidine (Catapres) 0.1 mg PO Q4H PRN PRN Reason: Systolic BP > 180 Dextrose/Water (Dextrose 50%) 25 gm SLOW IVP PRN PRN PRN Reason: Hypoglycemia Diphenhydramine HCl (Benadryl) 12.5 mg PO Q6H PRN PRN Reason: Itching & Insomnia Last Admin: 07/26/17 02:54 Dose: 12.5 mg Enoxaparin Sodium (Lovenox) 40 mg SC 0900 [facility] Stop: 07/28/17 21:01 Last Admin: 07/28/17 08:20 Dose: 40 mg Famotidine (Pepcid) 20 mg PO BID [facility] Last Admin: 07/28/17 08:20 Dose: 20 mg Furosemide (Lasix) 40 mg SLOW IVP 0600,1400 [facility] Last Admin: 07/28/17 05:17 Dose: 40 mg Glucagon (Glucagon) 1 mg IM PRN PRN PRN Reason: Hypoglycemia Guaifenesin (Robitussin Sf) 200 mg PO Q4H PRN PRN Reason: Cough Hydralazine HCl (Apresoline) 10 mg SLOW IVP Q4H PRN PRN Reason: Systolic BP > 180 Dextrose/Water (D5w) 1,000 mls @ 0 mls/hr IV .Q0M PRN; As Directed PRN Reason: Hypoglycemia Insulin Human Lispro (Humalog) 0 units SC .MODERATE SLIDING SC PRN PRN Reason: Moderate Correctional Scale Last Admin: 07/28/17 11:45 Dose: 2 units Insulin Human Lispro (Humalog) 0 units SC .BEDTIME SLIDING SC PRN PRN Reason: Bedtime Correctional Scale Loratadine (Claritin) 10 mg PO DAILYPRN PRN PRN Reason: Sinus Symptoms Miscellaneous Information (Communication Order-Pharmacy) 0 each FS ONE MICHAEL Stop: 07/29/17 10:16 Nitroglycerin (Nitrostat) 0.4 mg SL Q5MIN PRN PRN Reason: Chest Pain Ondansetron HCl (Zofran) 4 mg IVP Q6H PRN PRN Reason: Nausea/Vomiting Last Admin: 07/26/17 03:53 Dose: 4 mg Senna (Senokot) 2 tab PO HSPRN PRN PRN Reason: Constipation Tramadol HCl (Ultram) 50 mg PO Q4H PRN PRN Reason: Moderate Pain (4-6) Last Admin: 07/27/17 14:01 Dose: 50 mg
--- NOTE | 2017-07-28 14:41 | CT ---
CT ARTERIOGRAM NECK WITH IV CONTRAST AND 3D MIP IMAGING: HISTORY: Atherosclerosis. Carotid stenosis. COMPARISON: 07/24/15. FINDINGS: The inferiormost images show [id number] soft tissue density within the mediastinum. Postoperative changes of the mediastinum were partially visualized. There is scarring at each lung apex. Calcification is present at the aortic arch. An aberrant origin of the right subclavian artery is ag ain demonstrated. The proximal aspect again shows severe stenosis, estimated at greater than 90%. A string sign is now better demonstrated on today's exam. At the origin of the left subclavian artery is prominent calcification with a high-grade stenosis est imated at 80%. Flow is demonstrated into each vertebral artery with the left remaining dominant. At the right carotid bifurcation, there is prominent calcification and plaque. Stenosis of the origi n of the right internal carotid artery is estimated at 90%. Postoperative changes of the left proximal internal carotid artery are now apparent. A stenosis jose manuel ins at the mid left cervical ICA, estimated at 80%. IMPRESSION: 1. Interval left carotid endarterectomy. Stenosis remaining at the left internal carotid artery is estimated at 80%. 2. High-grade stenosis at the proximal right internal carotid artery. 3. 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 4. High-grade stenosis at the origin of the left subclavian artery. POS: MANNY
[2017-07-28] MEDS ORDERED: Iopamidol 370 76% 100 ML VIAL ONE (17:08)
--- NOTE | 2017-07-28 21:06 | CON ---
DATE OF CONSULTATION: 07/28/2017 HISTORY OF PRESENT ILLNESS: A 72-year-old female admitted last week with congestive heart failure, o rthopnea and peripheral edema with dyspnea. She had recently been having low blood pressures and her family physician, Dr. Leonard had cut back on her antihypertensives. She has a history of hypertensio n, dyslipidemia, coronary artery disease, peripheral vascular disease, diabetes mellitus. PAST SURGICAL HISTORY: Includes coronary bypass grafting x4 [place] [address] Day with a cardiac catheterization that I have reviewed in 2016 showing competitive flow from the HACKETT that was not well defined as well as the patent saphenous vein graft, Y graft to an obtuse marginal system x2 with elsa nosis in one branch of the vein graft. The right coronary artery was chronically occluded, circumfle x was also chronically occluded. LVEF was diminished about 20% at the time of that catheterization. She also had a left carotid endarterectomy [place] [address] angiography on this visit demo nstrated separate orifices from the aortic arch of the right subclavian and left subclavian as well a s left vertebral arteries. The common carotid arteries had a common orifice. The left internal mejia tid artery had mild disease, the right internal carotid artery had critical disease, the right subcla vian had critical disease at its origin, and the left subclavian had critical disease at its origin. The saphenous vein graft was patent off the ascending aorta on CT scan and I believe the KARLI had brinda w in it. The patient has improved with medical therapy in the hospital. Additional past surgical hi story includes hysterectomy. REVIEW OF SYSTEMS: The patient states she has burning in her feet when she walks, but does not reall y admit to true claudication. SOCIAL HISTORY: She has not smoked in many years. She is and she does not use alcohol. PHYSICAL EXAMINATION: GENERAL: She is an alert, cooperative lady, in no distress. NECK: She has a healed left carotid incision and no carotid bruits. CARDIAC: Regular rate and rhythm with a soft systolic murmur at the right upper sternal border. ABDOMEN: Obese and nontender with some panniculus hanging over her groin areas. EXTREMITIES: She has a weak, but present right femoral pulse and I do not appreciate a left femoral pulse. She may have a right popliteal pulse, but it is difficult to be certain and she has no pedal pulses, although she does have 2+ edema in her lower extremities making the patient difficult. She d oes not have a right radial pulse and she does have a weak left radial pulse. At this time, her blood pressures cannot be accurately assessed due to the bilateral subclavian arter y stenosis and I expect that her pressures are actually 60 mm higher than the measurements that are b eing obtained. I would suggest that stenting one or both subclavian arteries may be appropriate and then reassessing her HACKETT flow. At some point, consideration could be given to a right carotid endar terectomy and additionally consideration could be given to TAVR perhaps via subclavian approach as I suspect her aortoiliac system is rather severely diseased. If she has stenting of her subclavian art eries, diameter for TAVR is at least 5 mm, so 7 or 8 mm stent would be ideal. We will follow along dustin fleming you.
[2017-07-28] MEDS: Atorvastatin Calcium 40 MG TAB PO SCH (21:27)
[2017-07-29] MEDS: Furosemide 40 MG/4 ML VIAL SLOW IVP SCH ×2 (05:17→14:02)
[2017-07-29 06:16] LABS: Anion Gap 12 mmol/L (10-20); BUN (Urea Nitrogen) 18 mg/dL (9.8-20.1); Calc. Creatinine Clearance 87 mL/min (70-130); Carbon Dioxide 30 mmol/L (23-31); Chloride 97 mmol/L (98-107); Estimated GFR-MDRD 80; Glucose 146 mg/dL (83-110); Potassium 3.2 mmol/L (3.5-5.1); Sodium 136 mmol/L (136-145)
[2017-07-29] MEDS: Carvedilol 3.125 MG TAB PO SCH ×2 (07:58→17:37)
[2017-07-29] MEDS: Famotidine 20 MG TAB PO SCH ×2 (07:58→20:46)
[2017-07-29] MEDS: Aspirin 325 mg Enteric Coated Tablet PO SCH (07:58)
[2017-07-29] MEDS ORDERED: Enoxaparin Sodium 40 MG/0.4 ML SYRINGE SC SCH (10:30)
--- NOTE | 2017-07-29 10:47 | PDOC.CTH ---
Cardiology Progress Note - Subjective the pt seen and examined. No overnight events. No cardiac complaints. - Objective Vital Signs Temp Pulse Resp BP Pulse Ox 07/29/17 07:39 97.7 F 77 16 96 07/29/17 07:30 97.7 F 77 16 126/58 L 96 07/29/17 04:00 98.1 F 82 18 124/59 L 95 Admit Weight 208 lb Weight 199 lb 2 oz 07/28/17 07/29/17 07/30/17 06:59 06:59 06:59 Intake Total 920 800 Output Total 1675 1850 Balance -755 -1050 - Physical Examination General/Neuro: alert & oriented x3 Neck: no JVD present Lungs: CTA Heart: RRR Abdomen: soft Extremities: other: (No edema) - Labs Result Diagrams: 07/28/17 05:27 07/29/17 04:55 Troponin/CKMB CK-MB (CK-2) 2.0 ng/mL (0-6.6) 07/25/17 09:54 Troponin I 0.185 ng/mL (< 0.028) H 07/25/17 17:18 - Assessment/Plan 1. 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 Not on an FADIA due to hypotensitve; cont. monitor. Echo indicates severe decr. in EF 10-15%. 2. CAD with Hx of CABG x4 in 2004 and cardac cath in 2016; severe Lt subq stenosis prior to take of HACKETT; on Lovenox ASA, and Bblocker 3. HTN - on very low dose of Bblocker; cont. monitor 4. PAD - possible aortogram with Runoff as outpt in the future. She has diffuse disease. BY prior CTA she has bilateral ostial subclavian stenosis. This was also documented by cath in 2016 with subtotal ostial subclavian stenosis. the HACKETT arises from this vessel. Competitive filling of the distal LAD was seen on the [place] LAD injections indicating that the flow was at least adequate.This may not be the case now and she may not have adequate flow down the HACKETT to perfuse the distal LAD. The best option may be to do a repeat cath and see if the proximal LAD would be a target for stent placement. 5.Hyperlipidemia - on Statin 6. DM type 2 - on ACHS BC check with SS Insulin; managed by PCP 7. Hx of Lt CEA in 2016 - stable 8. 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 9. Severe decrease in LV systolic function, EF 10-15%. She meets the criteria for an AICD. Will discuss with EP. MAR reviewed * CTA neck showed severe disease in bilat subclavian artery and Rt ICA. Per Dr Bailey's note, possible 1-2 stents to Subclavian arteries, Rt CEA and TAVAR. Review of Systems - Review of Systems Constitutional: reports: no symptoms reported EENTM: reports: no symptoms reported Respiratory: reports: no symptoms reported Cardiac (ROS): reports: no symptoms reported ABD/GI: reports: no symptoms reported : reports: no symptoms reported
--- NOTE | 2017-07-29 11:07 | PDOC.PN ---
- Subjective Encounter Start Date: 07/29/17 Encounter Start Time: 11:05 Ms. Smallwood was seen in follow-up. She does not have any complaints. She is less short of breath, and denies chest pain. - Objective MAR Reviewed: Yes Vital Signs & Weight: Vital Signs (12 hours) Temp Pulse Resp BP Pulse Ox 07/29/17 07:39 97.7 F 77 16 96 07/29/17 07:30 97.7 F 77 16 126/58 L 96 07/29/17 04:00 98.1 F 82 18 124/59 L 95 Weight Admit Weight 208 lb Weight 199 lb 2 oz I&O: 07/28/17 07/29/17 07/30/17 06:59 06:59 06:59 Intake Total 920 800 Output Total 1675 1850 Balance -755 1050 Result Diagrams: 07/28/17 05:27 07/29/17 04:55 Additional Labs: Accuchecks 07/29/17 07/28/17 07/28/17 06:10 20:22 16:48 POC Glucose 144 H 209 H 164 H 07/28/17 11:36 POC Glucose 177 H Phys Exam - Physical Examination HEENT: PERRLA Respiratory: no wheezing, no rales, no rhonchi, clear to auscultation bilateral Cardiovascular: RRR + 2/6 systolic murmur to the carotids Gastrointestinal: soft, non-tender, positive bowel sounds Musculoskeletal: edema present + trace pedal edema, and chronic venous stasis changes Dx/Plan (1) Subclavian arterial stenosis Code(s): I77.1 - STRICTURE OF ARTERY Status: Acute (2) Cerebral vascular disease Code(s): I67.9 - CEREBROVASCULAR DISEASE, UNSPECIFIED Status: Acute (3) Acute CHF Code(s): I50.9 - HEART FAILURE, UNSPECIFIED Status: Acute Qualifiers: Heart failure type: diastolic Qualified Code(s): I50.31 - Acute diastolic ( congestive) heart failure (4) PAD (peripheral artery disease) Code(s): I73.9 - PERIPHERAL VASCULAR DISEASE, UNSPECIFIED Status: Chronic (5) HTN, goal below 140/80 Code(s): I10 - ESSENTIAL (PRIMARY) HYPERTENSION Status: Acute (6) DMII (diabetes mellitus, type 2) Status: Chronic (7) HTN (hypertension), benign Code(s): I10 - ESSENTIAL (PRIMARY) HYPERTENSION Status: Chronic - Plan * Acute on chronic systolic heart failure- she is much better compensated after diureses,, and symptomatically improved.. * DM- blood glucose is stable * HTN- blood pressure is stable * Bilateral Subclavian artery Stenosis- as well as Critical - Recommendations from Dr. Bailey were noted- will discuss how to proceed going forward
[2017-07-29] MEDS ORDERED: Potassium Chloride 20 MEQ TAB PO SCH (11:45)
[2017-07-29] MEDS: HumaLOG 300 UNITS/3 ML VIAL SC PRN ×2 (12:30→17:37)
[2017-07-29] MEDS: Atorvastatin Calcium 40 MG TAB PO SCH (20:46)
[2017-07-30] MEDS: Furosemide 40 MG/4 ML VIAL SLOW IVP SCH ×2 (05:22→15:20)
[2017-07-30] MEDS: Carvedilol 3.125 MG TAB PO SCH ×2 (09:42→18:32)
[2017-07-30] MEDS: Famotidine 20 MG TAB PO SCH ×2 (09:43→20:37)
[2017-07-30] MEDS: Aspirin 325 mg Enteric Coated Tablet PO SCH (09:43)
[2017-07-30] MEDS: Enoxaparin Sodium 40 MG/0.4 ML SYRINGE SC SCH (09:43)
--- NOTE | 2017-07-30 10:39 | PDOC.PN ---
- Subjective Encounter Start Date: 07/30/17 Encounter Start Time: 10:37 Ms. Smallwood was seen today in follow-up. She says she had a little dyspnea last night, but otherwise she feels ok today. - Objective MAR Reviewed: Yes Vital Signs & Weight: Vital Signs (12 hours) Temp Pulse Resp BP BP Pulse Ox 07/30/17 09:00 97.7 F 77 20 136/63 94 L 07/30/17 03:33 98.6 F 71 18 124/57 L 95 Weight Admit Weight 208 lb Weight 195 lb 5 oz I&O: 07/29/17 07/30/17 07/31/17 06:59 06:59 06:59 Intake Total 800 920 Output Total 1850 2250 Balance -1050 -1330 Result Diagrams: 07/28/17 05:27 07/29/17 04:55 Additional Labs: Accuchecks 07/30/17 07/29/17 07/29/17 05:43 20:01 16:30 POC Glucose 104 109 212 H 07/29/17 12:08 POC Glucose 238 H Phys Exam - Physical Examination HEENT: PERRLA Respiratory: no wheezing, no rales, clear to auscultation bilateral Cardiovascular: RRR, no significant murmur, no rub Gastrointestinal: soft, non-tender, positive bowel sounds Musculoskeletal: edema present trace pedal edema. and chronic venous stasis changes Dx/Plan (1) Subclavian arterial stenosis Code(s): I77.1 - STRICTURE OF ARTERY Status: Acute (2) Cerebral vascular disease Code(s): I67.9 - CEREBROVASCULAR DISEASE, UNSPECIFIED Status: Acute (3) Acute CHF Code(s): I50.9 - HEART FAILURE, UNSPECIFIED Status: Acute Qualifiers: Heart failure type: diastolic Qualified Code(s): I50.31 - Acute diastolic ( congestive) heart failure (4) PAD (peripheral artery disease) Code(s): I73.9 - PERIPHERAL VASCULAR DISEASE, UNSPECIFIED Status: Chronic (5) HTN, goal below 140/80 Code(s): I10 - ESSENTIAL (PRIMARY) HYPERTENSION Status: Acute (6) DMII (diabetes mellitus, type 2) Status: Chronic (7) HTN (hypertension), benign Code(s): I10 - ESSENTIAL (PRIMARY) HYPERTENSION Status: Chronic - Plan * Bilateral Subclavian artery stenosis- plan is for STENT placement on Tuesday * She may have Cardiac Cath on Tuesday as well * Acute on chronic systolic heart failure- compensated * DM- blood glucose is stable. * HTN- continue the current medication regimen
[2017-07-30] MEDS: HumaLOG 300 UNITS/3 ML VIAL SC PRN ×2 (11:56→20:39)
[2017-07-30] MEDS ORDERED: Sodium Chloride 0.9% 10 ML ONE (14:43)
[2017-07-30] MEDS: Atorvastatin Calcium 40 MG TAB PO SCH (20:37)
[2017-07-30] MEDS: Docusate 100 MG CAP PO SCH (20:37)
[2017-07-31] MEDS: Furosemide 40 MG/4 ML VIAL SLOW IVP SCH (05:29)
[2017-07-31] MEDS: Carvedilol 3.125 MG TAB PO SCH ×2 (08:41→17:49)
[2017-07-31] MEDS: Aspirin 325 mg Enteric Coated Tablet PO SCH (08:42)
[2017-07-31] MEDS: Enoxaparin Sodium 40 MG/0.4 ML SYRINGE SC SCH (08:42)
[2017-07-31] MEDS: Docusate 100 MG CAP PO SCH ×2 (08:42→20:52)
[2017-07-31] MEDS: Famotidine 20 MG TAB PO SCH ×2 (08:42→20:52)
[2017-07-31] MEDS ORDERED: Milk Of Magnesia 30 ML UDCUP PO PRN (11:27)
--- NOTE | 2017-07-31 11:39 | PDOC.PN ---
- Subjective Encounter Start Date: 07/31/17 Encounter Start Time: 11:37 Ms. Smallwood was seen today in follow-up. She does not have any new complaints. She denies chest pain or difficulty breathing. - Objective MAR Reviewed: Yes Vital Signs & Weight: Vital Signs (12 hours) Temp Pulse Resp BP BP Pulse Ox 07/31/17 08:50 96.3 F L 79 17 96 07/31/17 08:00 96.3 F L 79 17 112/55 L 95 07/31/17 04:00 98.1 F 79 18 122/59 L 91 L Weight Admit Weight 208 lb Weight 192 lb 11.2 oz I&O: 07/30/17 07/31/17 08/01/17 06:59 06:59 06:59 Intake Total 920 970 Output Total 2250 2600 Balance -1330 -1630 Result Diagrams: 07/28/17 05:27 07/29/17 04:55 Additional Labs: Accuchecks 07/31/17 07/30/17 07/30/17 05:47 20:10 17:03 POC Glucose 175 H 247 H 147 H Phys Exam - Physical Examination HEENT: PERRLA Respiratory: no wheezing, no rales, no rhonchi, clear to auscultation bilateral Cardiovascular: RRR, no significant murmur Gastrointestinal: soft, non-tender, positive bowel sounds Musculoskeletal: edema present trace pedal edema, + venous stasis changes Dx/Plan (1) Subclavian arterial stenosis Code(s): I77.1 - STRICTURE OF ARTERY Status: Acute (2) Cerebral vascular disease Code(s): I67.9 - CEREBROVASCULAR DISEASE, UNSPECIFIED Status: Acute (3) Acute CHF Code(s): I50.9 - HEART FAILURE, UNSPECIFIED Status: Acute Qualifiers: Heart failure type: diastolic Qualified Code(s): I50.31 - Acute diastolic ( congestive) heart failure (4) PAD (peripheral artery disease) Code(s): I73.9 - PERIPHERAL VASCULAR DISEASE, UNSPECIFIED Status: Chronic (5) HTN, goal below 140/80 Code(s): I10 - ESSENTIAL (PRIMARY) HYPERTENSION Status: Acute (6) DMII (diabetes mellitus, type 2) Status: Chronic (7) HTN (hypertension), benign Code(s): I10 - ESSENTIAL (PRIMARY) HYPERTENSION Status: Chronic - Plan * Acute on chronic systolic heart failure- compensated * HTN- continue the current regimen * Subclavian artery stenosis- plan is for STENT tomorrow * Left heart cath in AM as well.
[2017-07-31] MEDS: HumaLOG 300 UNITS/3 ML VIAL SC PRN ×3 (12:15→20:52)
[2017-07-31] MEDS: Atorvastatin Calcium 40 MG TAB PO SCH (20:52)
[2017-08-01] MEDS: Famotidine 20 MG TAB PO SCH ×2 (05:53→21:21)
[2017-08-01] MEDS: Aspirin 325 mg Enteric Coated Tablet PO SCH (05:53)
[2017-08-01] MEDS: Docusate 100 MG CAP PO SCH ×2 (05:53→21:21)
[2017-08-01] MEDS: Carvedilol 3.125 MG TAB PO SCH ×2 (05:53→18:37)
[2017-08-01] MEDS: Sodium Chloride 0.45% 1,000 ML IV SCH ×2 (06:00→15:24)
[2017-08-01] MEDS: Enoxaparin Sodium 40 MG/0.4 ML SYRINGE SC SCH (07:41)
[2017-08-01] MEDS: Furosemide 40 MG TAB PO SCH (07:42)
--- NOTE | 2017-08-01 09:30 | PDOC.PN ---
- Subjective Encounter Start Date: 08/01/17 Encounter Start Time: 09:26 Ms. Smallwood was seen today in follow-up. She says she was a bit nervous last night, but is feeling ok today. - Objective MAR Reviewed: Yes Vital Signs & Weight: Vital Signs (12 hours) Temp Pulse Resp BP BP Pulse Ox 08/01/17 08:14 97.8 F 67 19 125/59 L 95 08/01/17 03:16 97.8 F 80 18 122/58 L 97 Weight Admit Weight 208 lb Weight 188 lb 12.8 oz I&O: 07/31/17 08/01/17 08/02/17 06:59 06:59 06:59 Intake Total 970 750 Output Total 2600 1200 Balance -1630 -450 Result Diagrams: 07/28/17 05:27 07/29/17 04:55 Additional Labs: Accuchecks 08/01/17 07/31/17 07/31/17 05:34 20:10 16:43 POC Glucose 140 H 220 H 194 H 07/31/17 11:31 POC Glucose 216 H Phys Exam - Physical Examination HEENT: PERRLA Respiratory: no wheezing, no rales, no rhonchi, clear to auscultation bilateral Cardiovascular: RRR 2/6 systolic murmur Gastrointestinal: soft, non-tender, positive bowel sounds Musculoskeletal: edema present Dx/Plan (1) Subclavian arterial stenosis Code(s): I77.1 - STRICTURE OF ARTERY Status: Acute (2) Cerebral vascular disease Code(s): I67.9 - CEREBROVASCULAR DISEASE, UNSPECIFIED Status: Acute (3) Acute CHF Code(s): I50.9 - HEART FAILURE, UNSPECIFIED Status: Acute Qualifiers: Heart failure type: diastolic Qualified Code(s): I50.31 - Acute diastolic ( congestive) heart failure (4) PAD (peripheral artery disease) Code(s): I73.9 - PERIPHERAL VASCULAR DISEASE, UNSPECIFIED Status: Chronic (5) HTN, goal below 140/80 Code(s): I10 - ESSENTIAL (PRIMARY) HYPERTENSION Status: Acute (6) DMII (diabetes mellitus, type 2) Status: Chronic (7) HTN (hypertension), benign Code(s): I10 - ESSENTIAL (PRIMARY) HYPERTENSION Status: Chronic - Plan * Subclavian Artery stenosis- For STENT today * Severe Cardiomyopathy with EF of 10-15%- she is compensated, and plan is for cardiac Cath today * Aortic Stenosis- possible candidate forTAVR. * HTN- continue the current regimen pending STENTing
[2017-08-01] MEDS ORDERED: Lidocaine 1% (PF) 30 ML VIAL ONE (11:06)
[2017-08-01] MEDS ORDERED: Heparin 10,000 UNITS/1 ML VIAL ONE ×2 (12:11→13:19)
[2017-08-01] MEDS ORDERED: Fentanyl 100 MCG/2 ML VIAL ONE ×2 (12:13→14:13)
[2017-08-01] MEDS ORDERED: Iopamidol 370 76% 50 ML VIAL FS ONE (12:51)
[2017-08-01] MEDS ORDERED: Protamine Sulfate 50 MG/5 ML VIAL ONE (13:37)
--- NOTE | 2017-08-01 13:58 | OP ---
DATE OF PROCEDURE: 08/01/2017 PREOPERATIVE DIAGNOSIS: Bilateral subclavian artery stenosis. PROCEDURE: Arch arteriography selective right and left subclavian, left vertebral angiography with s tenting of the right subclavian 7 x 27 Express and left subclavian 8 x 17 Express. CONTRAST: Contrast was 92 mL. FLUORO: 20.4 minutes. SURGEON: Dr. Xavier Bailey PROCEDURE IN DETAIL: After prepping and draping, ultrasound guided puncture of the right common femo ral artery was performed. A 5 [place] dilator and sheath were placed and retrograde angiography demon strated patent minimal disease, right external and common iliac artery with an occluded left common i liac artery. Wire was then advanced and a pigtail catheter was then used to shoot the arch angiogram s. Following this, a 90 cm 7 mm Cook sheath was then advanced into the arch and the left subclavian artery was selectively cannulated and angiograms obtained. Predilated with a 6.2 balloon and then 8 x 17 Express stent deployed. A separate 1.4 wire had been placed into the vertebral artery at that t araseli prior to stenting and then patent vertebral artery was found at the conclusion and the wires were removed. Right subclavian artery was then cannulated with a wire and predilated with a 6 x 2 balloo n and then post this, the 7 x 27 stent was deployed. Completion angiography showed a good result wit h blood pressure readings about 50 mm higher than prior to placement of the stent. The patient good ated the procedure well.
[2017-08-01] MEDS ORDERED: Clopidogrel Bisulfate 75 MG TAB PO SCH (17:30)
[2017-08-01] MEDS: traMADol HCl 50 MG TAB PO PRN (18:47)
[2017-08-01] MEDS: Atorvastatin Calcium 40 MG TAB PO SCH (21:21)
[2017-08-01] MEDS: Lisinopril 2.5 MG TAB PO SCH (21:21)
[2017-08-01] MEDS: HumaLOG 300 UNITS/3 ML VIAL SC PRN (21:26)
[2017-08-02] MEDS: Enoxaparin Sodium 40 MG/0.4 ML SYRINGE SC SCH (08:30)
[2017-08-02] MEDS: Lisinopril 2.5 MG TAB PO SCH ×2 (08:31→21:47)
[2017-08-02] MEDS: Docusate 100 MG CAP PO SCH ×2 (08:31→21:39)
[2017-08-02] MEDS: Furosemide 40 MG TAB PO SCH (08:31)
[2017-08-02] MEDS: Clopidogrel Bisulfate 75 MG TAB PO SCH (08:31)
[2017-08-02] MEDS: Aspirin 325 mg Enteric Coated Tablet PO SCH (08:32)
[2017-08-02] MEDS: Famotidine 20 MG TAB PO SCH ×2 (08:32→21:48)
[2017-08-02] MEDS: Carvedilol 3.125 MG TAB PO SCH ×2 (08:32→18:04)
--- NOTE | 2017-08-02 09:24 | PDOC.CTH ---
<Molly Alba - Last Filed: 08/02/17 09:26> Cardiology Progress Note - Subjective The pt seen and examined. No overnight events. No cardiac complaints. She feels light "woozy" after stent placement yesterday - Objective Vital Signs Temp Pulse Resp BP Pulse Ox 08/02/17 03:56 97.9 F 88 15 129/60 95 08/01/17 23:57 98.1 F 82 16 124/56 L 93 L Admit Weight 208 lb Weight 193 lb 08/01/17 08/02/17 08/03/17 06:59 06:59 06:59 Intake Total 750 1020 Output Total 1200 1100 Balance -450 -80 - Physical Examination General/Neuro: alert & oriented x3 Neck: no JVD present Lungs: CTA Heart: RRR Abdomen: soft Extremities: other: (No edema) - Telemetry Telemetry Rhythm: SR 80s - Labs Result Diagrams: 07/28/17 05:27 07/29/17 04:55 Troponin/CKMB CK-MB (CK-2) 2.0 ng/mL (0-6.6) 07/25/17 09:54 Troponin I 0.185 ng/mL (< 0.028) H 07/25/17 17:18 - Assessment/Plan 1. 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 monitor. Echo indicates severe decr. in EF 10-15%. 2. Severe Subclavian artery stenosis with s/p stent in bilat Subclavian on 08/01 - stable; cont. monitor 2. CAD with Hx of CABG x4 in 2004 and cardac cath in 2016; severe Lt subq stenosis prior to take of HACKETT; on Lovenox, ASA, FADIA and Bblocker 3. HTN - stable with current medication; cont. monitor 4. PAD - possible aortogram with Runoff as outpt in the future. She has diffuse disease. BY prior CTA she has bilateral ostial subclavian stenosis. This was also documented by cath in 2016 with subtotal ostial subclavian stenosis. the HACKETT arises from this vessel. Competitive filling of the distal LAD was seen on the [place] LAD injections indicating that the flow was at least adequate.This may not be the case now and she may not have adequate flow down the HACKETT to perfuse the distal LAD. The best option may be to do a repeat cath and see if the proximal LAD would be a target for stent placement. 5. Hyperlipidemia - on Statin 6. DM type 2 - on ACHS BC check with SS Insulin; managed by PCP 7. Stenosis in Carotid arteries with hx of Lt CEA in 2016 - CT neck showed severe disease in Rt ICA. Possible Rt CEA. 8. 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 9. Severe decrease in LV systolic function, EF 10-15%. She meets the criteria for an AICD. Possible cardiac Cath. Will discuss with EP. MAR reviewed * CTA neck showed severe disease in bilat subclavian artery and Rt ICA. S/p Stent in Bilat Subclavian arteries on 08/01/17. Per Dr Bailey's note, possible Rt CEA and TAVAR. Review of Systems - Review of Systems Constitutional: reports: see HPI EENTM: reports: no symptoms reported Respiratory: reports: no symptoms reported Cardiac (ROS): reports: no symptoms reported ABD/GI: reports: no symptoms reported : reports: no symptoms reported Musculoskeletal: reports: no symptoms reported <Nadir More - Last Filed: 08/02/17 23:10> Cardiology Progress Note - Objective Vital Signs Pulse Pulse Pulse Resp BP BP BP 08/02/17 21:47 73 08/02/17 18:00 69 16 121/57 L 08/02/17 13:00 70 14 08/02/17 11:45 73 76 118/56 L 133/60 BP Pulse Ox Pulse Ox Pulse Ox 08/02/17 21:47 08/02/17 18:00 95 08/02/17 13:00 123/58 L 97 08/02/17 11:45 98 91 L Admit Weight 208 lb Weight 193 lb 08/01/17 08/02/17 08/03/17 06:59 06:59 06:59 Intake Total 750 1020 940 Output Total 1200 1100 Balance -450 -80 940 - Labs Result Diagrams: 07/28/17 05:27 07/29/17 04:55 Troponin/CKMB CK-MB (CK-2) 2.0 ng/mL (0-6.6) 07/25/17 09:54 Troponin I 0.185 ng/mL (< 0.028) H 07/25/17 17:18 - Assessment/Plan Pt. seen and eval. by me. She complains of diziness today.She was mildly orthostatic this AM. But overall feels better. I agree with the A/P by the N P. We will likely need to adjust some of the medications.
--- NOTE | 2017-08-02 11:25 | PDOC.PN ---
- Subjective Encounter Start Date: 08/02/17 Encounter Start Time: 11:23 Ms. Smallwood was seen today in follow-up. She say she feels a bit woozy. She denies any chest pain or shortness of breath. - Objective MAR Reviewed: Yes Vital Signs & Weight: Vital Signs (12 hours) Temp Pulse Resp BP Pulse Ox 08/02/17 03:56 97.9 F 88 15 129/60 95 08/01/17 23:57 98.1 F 82 16 124/56 L 93 L Weight Admit Weight 208 lb Weight 193 lb I&O: 08/01/17 08/02/17 08/03/17 06:59 06:59 06:59 Intake Total 750 1020 Output Total 1200 1100 Balance -450 -80 Result Diagrams: 07/28/17 05:27 07/29/17 04:55 Additional Labs: Accuchecks 08/02/17 06:00 POC Glucose 172 H Phys Exam - Physical Examination HEENT: PERRLA Respiratory: no wheezing, no rales, no rhonchi, clear to auscultation bilateral Cardiovascular: RRR 3/6 systolic murmur Gastrointestinal: soft, non-tender, positive bowel sounds Musculoskeletal: edema present + chronic venous stasis changes Dx/Plan (1) Subclavian arterial stenosis Code(s): I77.1 - STRICTURE OF ARTERY Status: Acute (2) Cerebral vascular disease Code(s): I67.9 - CEREBROVASCULAR DISEASE, UNSPECIFIED Status: Acute (3) Acute CHF Code(s): I50.9 - HEART FAILURE, UNSPECIFIED Status: Acute Qualifiers: Heart failure type: diastolic Qualified Code(s): I50.31 - Acute diastolic ( congestive) heart failure (4) PAD (peripheral artery disease) Code(s): I73.9 - PERIPHERAL VASCULAR DISEASE, UNSPECIFIED Status: Chronic (5) HTN, goal below 140/80 Code(s): I10 - ESSENTIAL (PRIMARY) HYPERTENSION Status: Acute (6) DMII (diabetes mellitus, type 2) Status: Chronic (7) HTN (hypertension), benign Code(s): I10 - ESSENTIAL (PRIMARY) HYPERTENSION Status: Chronic - Plan * Patient is s/p STENT placement to the right subclavian artery * HTN- blood pressure was expected to rise, following the procedure, and her medications have been adjusted by Dr. Bailey * DM- blood glucose is stable * Chronic systolic heart failure with EF 10-15%- she may be a candidate for Defibrillator * Aortic Stenosis- possibly candidate for TAVR later * Awaiting further recommendations from Cardiology
[2017-08-02 12:10] VITALS: BMI 33.1
[2017-08-02 12:39] LABS: Bilirubin Negative (Negative); Blood, Urine Negative (Negative); Clarity CLOUDY (Clear); Glucose, Urine (Dipstick) Negative (Negative); Leukocyte Moderate (Negative); Nitrite Positive (Negative); Protein, Urine (Dipstick) Negative (Neg-Trace); Specific Gravity, Urine 1.016 (1.002-1.036)
[2017-08-02 12:41] LABS: Bacteria/HPF 4+ HPF (None Seen); Hyaline Casts/LPF 0-3 HYALINE CAST LPF (0-3 Hyaline); Pathc Cast-AUWi Flag 0.13 (0-2.49); RBC/HPF 0-3 HPF (0-3); Squamous Epithelial 0-3 HPF (0-3)
[2017-08-02] MEDS: HumaLOG 300 UNITS/3 ML VIAL SC PRN ×2 (14:04→21:52)
[2017-08-02] MEDS: Atorvastatin Calcium 40 MG TAB PO SCH (21:47)
[2017-08-03] MEDS: traMADol HCl 50 MG TAB PO PRN ×2 (00:50→08:17)
[2017-08-03 05:24] LABS: Anion Gap 11 mmol/L (10-20); BUN (Urea Nitrogen) 17 mg/dL (9.8-20.1); Calc. Creatinine Clearance 88 mL/min (70-130); Calcium 8.9 mg/dL (7.8-10.44); Carbon Dioxide 29 mmol/L (23-31); Chloride 98 mmol/L (98-107); Estimated GFR-MDRD 86; Glucose 226 mg/dL (83-110); Potassium 3.2 mmol/L (3.5-5.1); Sodium 135 mmol/L (136-145)
[2017-08-03 06:59] LABS: #Lymphocytes 1.7 thou/uL (1.20-3.40); #Monocytes 0.5 thou/uL (0.11-0.59); #Neutrophils 3.8 thou/uL (1.40-6.50); %Basophils 0.2 % (0.0-1.0); %Eosinophils 0.1 % (0.0-10.0); %Monocytes 8.6 % (0.0-10.0); Elliptocytes SLIGHT = 2-5 cells (100X) (0-1/hpf); Hemoglobin 12.3 g/dL (12.0-16.0); MDiff Complete? YES; Mean Corpuscular HGB CONC 31.1 g/dL (32.0-36.0); Mean Corpuscular Hemoglobin 30.3 pg (27.0-31.0); Mean Corpuscular Volume 97.4 fl (81.0-99.0); Mean Platelet Volume 8.8 fL (7.4-10.4); PLT Morphology Comment PLT clumps seen-ADEQ; Platelet Count 0 thou/uL (130-400); RBC Distribution Width 14.7 % (11.5-14.5); Red Blood Cell (RBC) Count 4.06 mill/uL (4.20-5.40)
[2017-08-03] MEDS: Furosemide 40 MG TAB PO SCH (08:16)
[2017-08-03] MEDS: Carvedilol 3.125 MG TAB PO SCH ×2 (08:16→16:35)
[2017-08-03] MEDS: Aspirin 325 mg Enteric Coated Tablet PO SCH (08:17)
[2017-08-03] MEDS: Famotidine 20 MG TAB PO SCH ×2 (08:17→20:57)
[2017-08-03] MEDS: Lisinopril 2.5 MG TAB PO SCH ×2 (08:17→20:57)
[2017-08-03] MEDS: Clopidogrel Bisulfate 75 MG TAB PO SCH (08:17)
[2017-08-03] MEDS: Enoxaparin Sodium 40 MG/0.4 ML SYRINGE SC SCH (08:18)
[2017-08-03] MEDS: Docusate 100 MG CAP PO SCH ×2 (08:18→20:56)
--- NOTE | 2017-08-03 09:20 | PDOC.CTH ---
<Molly Alba - Last Filed: 08/03/17 11:37> Cardiology Progress Note - Subjective the pt seen and examined. No overnight events. She still complains of intermittent lightheadedness. She also complains of back pain due to UTI. - Objective Vital Signs Temp Pulse Resp BP BP Pulse Ox 08/03/17 08:32 98.3 F 79 18 119/56 L 93 L 08/03/17 04:00 98.3 F 83 18 127/60 95 08/02/17 21:47 73 Admit Weight 208 lb Weight 191 lb 08/02/17 08/03/17 08/04/17 06:59 06:59 06:59 Intake Total 1020 1180 Output Total 1100 400 Balance -80 780 - Physical Examination General/Neuro: alert & oriented x3 Neck: no JVD present Lungs: CTA Heart: RRR Abdomen: soft Extremities: other: (No edema) - Telemetry Telemetry Rhythm: SR 70s - Labs Result Diagrams: 08/03/17 04:21 08/03/17 04:21 Troponin/CKMB CK-MB (CK-2) 2.0 ng/mL (0-6.6) 07/25/17 09:54 Troponin I 0.185 ng/mL (< 0.028) H 07/25/17 17:18 - Assessment/Plan 1. 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 monitor. Echo indicates severe decr. in EF 10-15%. 2. Severe Subclavian artery stenosis with s/p stent in bilat Subclavian on 08/01 - stable with good pulses in Blat radial; cont. monitor 2. CAD with Hx of CABG x4 in 2004 and cardac cath in 2016; severe Lt subq stenosis prior to take of HACKETT; on Lovenox, ASA, FADIA and Bblocker 3. HTN - still complains of lightheadedness; re-check orthostatic VS; 4. PAD - possible aortogram with Runoff as outpt in the future. She has diffuse disease. BY prior CTA she has bilateral ostial subclavian stenosis. This was also documented by cath in 2016 with subtotal ostial subclavian stenosis. the HACKETT arises from this vessel. Competitive filling of the distal LAD was seen on the [place] LAD injections indicating that the flow was at least adequate.This may not be the case now and she may not have adequate flow down the HACKETT to perfuse the distal LAD. 5. Hyperlipidemia - on Statin 6. DM type 2 - on ACHS BC check with SS Insulin; managed by PCP 7. Stenosis in Carotid arteries with hx of Lt CEA in 2015 - CT neck showed severe disease in Rt ICA. Possible Rt CEA as outpatient setting by Dr Bailey. 8. 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 9. Severe decrease in LV systolic function, EF 10-15%. She meets the criteria for an AICD. Another Echo within 2 wks as outpt setting. If EF is still low, will discuss with EP. 10. UTI - on Antibiotics; managed by PCP 11. Hypokalemia - Kcl 40 mEq PO x1; cont. monitor MAR reviewed * CTA neck showed severe disease in bilat subclavian artery and Rt ICA. S/p Stent in Bilat Subclavian arteries on 08/01/17. Per Dr Bailey's note, possible Rt CEA and TAVAR. * LifeVest at discharge * When the pt's Orthostatic VS is stable and no longer complains of lightheadedness, the pt is stable to d/c home from Cardiac standpoint. The pt will f/u with Dr More' office within 2 wks with Echo. Review of Systems - Review of Systems Constitutional: reports: see HPI EENTM: reports: no symptoms reported Respiratory: reports: no symptoms reported Cardiac (ROS): reports: no symptoms reported ABD/GI: reports: no symptoms reported : reports: no symptoms reported Musculoskeletal: reports: see HPI <Nadir More - Last Filed: 08/03/17 12:07> Cardiology Progress Note - Objective Vital Signs Temp Pulse Resp BP BP BP BP 08/03/17 10:16 124/58 L 122/54 L 120/57 L 08/03/17 08:32 98.3 F 79 18 119/56 L 08/03/17 08:21 98.3 F 79 18 08/03/17 04:00 98.3 F 83 18 127/60 Pulse Ox 08/03/17 10:16 08/03/17 08:32 93 L 08/03/17 08:21 02/21/18 04:00 95 Admit Weight 208 lb Weight 191 lb 08/02/17 08/03/17 08/04/17 06:59 06:59 06:59 Intake Total 1020 1180 Output Total 1100 400 Balance -80 780 - Labs Result Diagrams: 08/03/17 04:21 08/03/17 04:21 Troponin/CKMB CK-MB (CK-2) 2.0 ng/mL (0-6.6) 07/25/17 09:54 Troponin I 0.185 ng/mL (< 0.028) H 07/25/17 17:18 - Assessment/Plan Pt. seen and eval. by me. I agree withthe a/P by the PHYSICIAN ASSISTANT. I have explained the rational for a Life-Vest and she is understandable.. She will f/u with me in the office in 2-3 weeks and i will re-evaluate. If the EF does not improve to > 35% then an implantable device will be indicated.
[2017-08-03] MEDS ORDERED: Potassium Chloride 20 MEQ TAB PO SCH (09:30)
[2017-08-03] MEDS: HumaLOG 300 UNITS/3 ML VIAL SC PRN ×2 (12:09→16:43)
--- NOTE | 2017-08-03 15:31 | PDOC.PN ---
- Subjective Encounter Start Date: 08/03/17 Encounter Start Time: 15:30 Subjective: still somewhat dizzy but better w lying down -: No CP/SOB - Objective MAR Reviewed: Yes Vital Signs & Weight: Vital Signs (12 hours) Temp Pulse Pulse Pulse Resp BP BP 08/03/17 12:40 97.6 F 73 16 08/03/17 11:29 71 81 139/63 139/61 08/03/17 10:16 08/03/17 08:32 98.3 F 79 18 08/03/17 08:21 98.3 F 79 18 08/03/17 04:00 98.3 F 83 18 BP BP BP BP Pulse Ox Pulse Ox Pulse Ox 08/03/17 12:40 129/59 L 16 L 08/03/17 11:29 91 L 96 08/03/17 10:16 124/58 L 122/54 L 120/57 L 08/03/17 08:32 119/56 L 93 L 08/03/17 08:21 08/03/17 04:00 127/60 95 Weight Admit Weight 208 lb Weight 191 lb I&O: 08/02/17 08/03/17 08/04/17 06:59 06:59 06:59 Intake Total 1020 1180 Output Total 1100 400 Balance -80 780 Result Diagrams: 08/04/17 04:38 08/04/17 04:38 Additional Labs: Accuchecks 08/03/17 08/03/17 08/02/17 11:05 05:53 16:55 POC Glucose 262 H 213 H 190 H Microbiology 07/25/17 20:20 Nasopharyngeal swab Respiratory Panel (PCR) - Final 08/02/17 11:55 Urine voided Urine Culture - Preliminary Presumptive Escherichia coli Phys Exam - Physical Examination Constitutional: NAD HEENT: PERRLA, moist MMs, sclera anicteric, oral pharynx no lesions Neck: no nodes, no JVD, supple, full ROM Respiratory: no wheezing, no rales, no rhonchi, clear to auscultation bilateral Cardiovascular: RRR Gastrointestinal: soft, non-tender, no distention, positive bowel sounds Musculoskeletal: no edema, pulses present Neurological: non-focal, normal sensation, moves all 4 limbs Psychiatric: normal affect, A&O x 3 Skin: no rash Dx/Plan (1) Acute CHF Code(s): I50.9 - HEART FAILURE, UNSPECIFIED Status: Acute Qualifiers: Heart failure type: diastolic Qualified Code(s): I50.31 - Acute diastolic ( congestive) heart failure Comment: improving (2) Demand ischemia Code(s): I24.8 - OTHER FORMS OF ACUTE ISCHEMIC HEART DISEASE Status: Acute (3) DMII (diabetes mellitus, type 2) Status: Chronic (4) HTN (hypertension), benign Code(s): I10 - ESSENTIAL (PRIMARY) HYPERTENSION Status: Chronic (5) CAD (coronary artery disease) Code(s): I25.10 - ATHSCL HEART DISEASE OF [place] CORONARY ARTERY W/O ANG PCTRS Status: Chronic (6) PAD (peripheral artery disease) Code(s): I73.9 - PERIPHERAL VASCULAR DISEASE, UNSPECIFIED Status: Chronic (7) Acute hypoxemic respiratory failure Code(s): J96.01 - ACUTE RESPIRATORY FAILURE WITH HYPOXIA Status: Resolved (8) Cardiomyopathy Code(s): I42.9 - CARDIOMYOPATHY, UNSPECIFIED Status: Acute Qualifiers: Cardiomyopathy type: ischemic Qualified Code(s): I25.5 - Ischemic cardiomyopathy (9) H/O carotid artery stenosis Code(s): Z86.79 - PERSONAL HISTORY OF OTHER DISEASES OF THE CIRCULATORY SYSTEM Status: Chronic (10) Subclavian arterial stenosis Code(s): I77.1 - STRICTURE OF ARTERY Status: Acute Comment: s/p B/L stenting 08/01/17 (11) Ischemic cardiomyopathy Code(s): I25.5 - ISCHEMIC CARDIOMYOPATHY Status: Chronic (12) Aortic stenosis, severe Code(s): I35.0 - NONRHEUMATIC AORTIC (VALVE) STENOSIS Status: Chronic - Plan continue antibiotics, PT/OT, social welfare administrator, incentive spirometry, DVT proph w/ SCDs cont diuresis per cardiology.may add Aldactone for low EF but BP low -: cont BB,FADIA-I.ASA,Plavix.On lasix -: will need life vest prior to DC. -: OP f/u for TAVR & R CEA per CTVS -: appreciate Cardiology & CTVS input. * .change ABx to PO.awaiting final Cx?sensitivities results Review of Systems - Review of Systems Constitutional: weakness, malaise ENT: negative: Ear Pain, Ear Discharge, Nose Pain, Nose Discharge, Nose Congestion, Mouth Pain, Mouth Swelling, Throat Pain, Throat Swelling, Other Respiratory: SOB with Excertion. negative: Cough, Dry, Shortness of Breath, Hemoptysis, Pleuritic Pain, Sputum, Wheezing Cardiovascular: light headedness. negative: chest pain, palpitations, orthopnea , paroxysmal nocturnal dyspnea, edema, other Gastrointestinal: negative: Nausea, Vomiting, Abdominal Pain, Diarrhea, Constipation, Melena, Hematochezia, Other Genitourinary: negative: Dysuria, Frequency, Incontinence, Hematuria, Retention , Other Musculoskeletal: negative: Neck Pain, Shoulder Pain, Arm Pain, Back Pain, Hand Pain, Leg Pain, Foot Pain, Other Skin: negative: Rash, Lesions, Alessandro, Bruising, Other Neurological: negative: Weakness, Numbness, Incoordination, Change in Speech, Confusion, Seizures, Other - Medications/Allergies Allergies/Adverse Reactions: Allergies Allergy/AdvReac Type Severity Reaction Status Date / Time Penicillins Allergy Rash Verified 07/25/17 18:07 Medications: Current Medications Acetaminophen (Tylenol) 650 mg PO Q4H PRN PRN Reason: Headache/Fever or Pain Al Hydroxide/Mg Hydroxide (Maalox) 30 ml PO Q6H PRN PRN Reason: Heartburn or Indigestion Aspirin (Ecotrin) 325 mg PO DAILY [facility] Last Admin: 08/03/17 08:17 Dose: 325 mg Atorvastatin Calcium (Lipitor) 40 mg PO HS [facility] Last Admin: 08/02/17 21:47 Dose: 40 mg Benzonatate (Tessalon) 100 mg PO Q4H PRN PRN Reason: Cough Bisacodyl (Dulcolax) 10 mg PO DAILYPRN PRN PRN Reason: Constipation Calcium Carbonate (Tums) 1,000 mg PO Q4H PRN PRN Reason: Heartburn or Indigestion Carvedilol (Coreg) 3.125 mg PO BID-[facility] Last Admin: 08/03/17 08:16 Dose: 3.125 mg Clonidine (Catapres) 0.1 mg PO Q4H PRN PRN Reason: Systolic BP > 180 Clopidogrel Bisulfate (Plavix) 75 mg PO DAILY [facility] Last Admin: 08/03/17 08:17 Dose: 75 mg Dextrose/Water (Dextrose 50%) 25 gm SLOW IVP PRN PRN PRN Reason: Hypoglycemia Diphenhydramine HCl (Benadryl) 12.5 mg PO Q6H PRN PRN Reason: Itching & Insomnia Last Admin: 07/26/17 02:54 Dose: 12.5 mg Docusate Sodium (Colace) 100 mg PO BID [facility] Last Admin: 08/03/17 08:18 Dose: Not Given Enoxaparin Sodium (Lovenox) 40 mg SC 0900 [facility] Last Admin: 08/03/17 08:18 Dose: Not Given Famotidine (Pepcid) 20 mg PO BID [facility] Last Admin: 08/03/17 08:17 Dose: 20 mg Furosemide (Lasix) 40 mg PO DAILY-AC [facility] Last Admin: 08/03/17 08:16 Dose: 40 mg Glucagon (Glucagon) 1 mg IM PRN PRN PRN Reason: Hypoglycemia Guaifenesin (Robitussin Sf) 200 mg PO Q4H PRN PRN Reason: Cough Hydralazine HCl (Apresoline) 10 mg SLOW IVP Q4H PRN PRN Reason: Systolic BP > 180 Dextrose/Water (D5w) 1,000 mls @ 0 mls/hr IV .Q0M PRN; As Directed PRN Reason: Hypoglycemia Insulin Human Lispro (Humalog) 0 units SC .MODERATE SLIDING SC PRN PRN Reason: Moderate Correctional Scale Last Admin: 08/03/17 12:09 Dose: 6 units Insulin Human Lispro (Humalog) 0 units SC .BEDTIME SLIDING SC PRN PRN Reason: Bedtime Correctional Scale Last Admin: 08/02/17 21:52 Dose: 2 unit Levofloxacin (Levaquin) 500 mg PO 0600 [facility] Lisinopril (Zestril) 2.5 mg PO BID [facility] Last Admin: 08/03/17 08:17 Dose: 2.5 mg Loratadine (Claritin) 10 mg PO DAILYPRN PRN PRN Reason: Sinus Symptoms Magnesium Hydroxide (Milk Of Magnesium) 30 ml PO DAILYPRN PRN PRN Reason: Constipation Last Admin: 07/31/17 12:17 Dose: 30 ml Nitroglycerin (Nitrostat) 0.4 mg SL Q5MIN PRN PRN Reason: Chest Pain Ondansetron HCl (Zofran) 4 mg IVP Q6H PRN PRN Reason: Nausea/Vomiting Last Admin: 07/26/17 03:53 Dose: 4 mg Senna (Senokot) 2 tab PO HSPRN PRN PRN Reason: Constipation Sodium Chloride (Flush - Normal Saline) 10 ml IVF Q12HR [facility] Last Admin: 08/03/17 08:27 Dose: 10 ml Sodium Chloride (Flush - Normal Saline) 10 ml IVF PRN PRN PRN Reason: Saline Flush Tramadol HCl (Ultram) 50 mg PO Q4H PRN PRN Reason: Moderate Pain (4-6) Last Admin: 08/03/17 08:17 Dose: 50 mg
[2017-08-03] MEDS: Atorvastatin Calcium 40 MG TAB PO SCH (20:56)
[2017-08-04 05:39] LABS: Anion Gap 12 mmol/L (10-20); BUN (Urea Nitrogen) 17 mg/dL (9.8-20.1); Calc. Creatinine Clearance 91 mL/min (70-130); Calcium 9.4 mg/dL (7.8-10.44); Carbon Dioxide 29 mmol/L (23-31); Chloride 99 mmol/L (98-107); Estimated GFR-MDRD 88; Glucose 175 mg/dL (83-110); Potassium 3.7 mmol/L (3.5-5.1); Sodium 136 mmol/L (136-145)
[2017-08-04 07:02] LABS: #Lymphocytes 1.3 thou/uL (1.20-3.40); #Monocytes 0.5 thou/uL (0.11-0.59); #Neutrophils 3.8 thou/uL (1.40-6.50); %Basophils 0.2 % (0.0-1.0); %Lymphocytes 22.7 % (21.0-51.0); %Monocytes 9.7 % (0.0-10.0); %Neutrophils 67.4 % (42.0-75.0); Mean Corpuscular HGB CONC 30.8 g/dL (32.0-36.0); Mean Corpuscular Hemoglobin 30.1 pg (27.0-31.0); Mean Corpuscular Volume 97.9 fl (81.0-99.0); Mean Platelet Volume 9.1 fL (7.4-10.4); Platelet Count 140 thou/uL (130-400); RBC Distribution Width 14.7 % (11.5-14.5); Red Blood Cell (RBC) Count 3.97 mill/uL (4.20-5.40); White Blood Cell (WBC) Count 5.6 thou/uL (4.8-10.8)
[2017-08-04 07:06] LABS: Elliptocytes SLIGHT = 2-5 cells (100X) (0-1/hpf); Lymphocytes 20 % (21-51); MDiff Complete? YES; Monocytes 5 % (0-10); Neutrophil 75 % (42-75); PLT Morphology Comment Appears Adequate; Platelet Clumps MARKED
[2017-08-04] MEDS: Carvedilol 3.125 MG TAB PO SCH (08:09)
[2017-08-04] MEDS: Lisinopril 2.5 MG TAB PO SCH (08:09)
[2017-08-04] MEDS: Famotidine 20 MG TAB PO SCH (08:09)
[2017-08-04] MEDS: Clopidogrel Bisulfate 75 MG TAB PO SCH (08:09)
[2017-08-04] MEDS: Aspirin 325 mg Enteric Coated Tablet PO SCH (08:10)
[2017-08-04] MEDS: Enoxaparin Sodium 40 MG/0.4 ML SYRINGE SC SCH (08:10)
[2017-08-04] MEDS: Docusate 100 MG CAP PO SCH (08:10)
[2017-08-04] MEDS: Furosemide 40 MG TAB PO SCH (08:10)
[2017-08-04] MEDS: HumaLOG 300 UNITS/3 ML VIAL SC PRN ×2 (08:11→12:51)
--- NOTE | 2017-08-04 08:42 | PDOC.CTH ---
Cardiology Progress Note - Subjective The pt seen and examined. No overnight events. No cardiac complaints. She described her dizziness is as "Room spining," not black out or near syncopal episodes. - Objective Vital Signs Temp Pulse Resp BP BP BP Pulse Ox 08/04/17 08:09 74 120/59 L 08/04/17 08:03 97.8 F 74 12 120/59 L 97 08/04/17 03:37 98 F 83 14 147/67 H 96 08/03/17 20:57 83 115/58 L Admit Weight 208 lb Weight 192 lb 08/03/17 08/04/17 08/05/17 06:59 06:59 06:59 Intake Total 1180 1020 Output Total 400 1050 Balance 780 -30 - Physical Examination General/Neuro: alert & oriented x3 Neck: no JVD present Lungs: CTA Heart: RRR Abdomen: soft Extremities: other: (No edema) - Telemetry Telemetry Rhythm: SR 70s - Labs Result Diagrams: 08/04/17 04:38 08/04/17 04:38 Troponin/CKMB CK-MB (CK-2) 2.0 ng/mL (0-6.6) 07/25/17 09:54 Troponin I 0.185 ng/mL (< 0.028) H 07/25/17 17:18 - Assessment/Plan 1. 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 monitor. Echo indicates severe decr. in EF 10-15%. LifeVest at bedside. 2. Severe Subclavian artery stenosis with s/p stent in bilat Subclavian on 08/01 - stable with good pulses in Blat radial; on Plavix and ASA; cont. monitor 2. CAD with Hx of CABG x4 in 2004 and cardac cath in 2016; severe Lt subq stenosis prior to take of HACKETT; on Lovenox, ASA, FADIA and Bblocker 3. HTN - stable with normal orthostatic VS; cont. monitor 4. PAD - possible aortogram with [facility] as outpt in the future. She has diffuse disease. BY prior CTA she has bilateral ostial subclavian stenosis. This was also documented by cath in 2016 with subtotal ostial subclavian stenosis. the HACKETT arises from this vessel. Competitive filling of the distal LAD was seen on the [place] LAD injections indicating that the flow was at least adequate.This may not be the case now and she may not have adequate flow down the HACKETT to perfuse the distal LAD. 5. Hyperlipidemia - on Statin 6. DM type 2 - on ACHS BC check with SS Insulin; managed by PCP 7. Stenosis in Carotid arteries with hx of Lt CEA in 2016 - CT neck showed severe disease in Rt ICA. Possible Rt CEA as outpatient setting by Dr Bailey. 8. 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 9. Severe decrease in LV systolic function, EF 10-15%. She meets the criteria for an AICD. Another Echo within 2 wks as outpt setting. If EF is still low, will discuss with EP. 10. UTI - on Antibiotics; managed by PCP 11. Dizziness - The pt described her dizziness is "Room spining", which seems like Vertigo like dizziness MAR reviewed * CTA neck showed severe disease in bilat subclavian artery and Rt ICA. S/p Stent in Bilat Subclavian arteries on 08/01/17. Per Dr Bailey's note, possible Rt CEA and TAVAR. * LifeVest at discharge * From Cardiac standpoint, the pt is stable to d/c home once her LifeVest starts working properly. The pt will f/u with Dr More' office within 2-3wks with Echo. If the EF does not improve to >35% then an implantable device will be indicated. Review of Systems - Review of Systems Constitutional: reports: see HPI EENTM: reports: no symptoms reported Respiratory: reports: no symptoms reported Cardiac (ROS): reports: no symptoms reported ABD/GI: reports: no symptoms reported : reports: no symptoms reported Musculoskeletal: reports: no symptoms reported Skin: reports: no symptoms reported Neurological: reports: see HPI
[2017-08-04] MEDS ORDERED: Nitrofurantoin Macrocrystal 50 MG CAP PO SCH (09:00)
[2017-08-04 12:50] VITALS: TEMP 98.4
[2017-08-04] MEDS: traMADol HCl 50 MG TAB PO PRN (12:51)
--- NOTE | 2017-08-04 13:13 | PDOC.PN ---
- Subjective Encounter Start Date: 08/04/17 Encounter Start Time: 13:11 Subjective: doiung well. no more dizzy spells -: life vest fitted and working now - Objective MAR Reviewed: Yes Vital Signs & Weight: Vital Signs (12 hours) Temp Pulse Resp BP BP BP Pulse Ox 08/04/17 12:47 98.4 F 67 16 124/60 96 08/04/17 08:09 74 120/59 L 08/04/17 08:03 97.8 F 74 12 120/59 L 97 08/04/17 03:37 98 F 83 14 147/67 H 96 Weight Admit Weight 208 lb Weight 192 lb I&O: 08/03/17 08/04/17 08/05/17 06:59 06:59 06:59 Intake Total 1180 1020 Output Total 400 1050 Balance 780 -30 Result Diagrams: 08/04/17 04:38 08/04/17 04:38 Additional Labs: Accuchecks 08/04/17 08/04/17 08/03/17 10:55 06:27 20:21 POC Glucose 218 H 200 H 187 H 08/03/17 16:22 POC Glucose 218 H Phys Exam - Physical Examination Constitutional: NAD HEENT: PERRLA, moist MMs, sclera anicteric, oral pharynx no lesions Neck: no nodes, no JVD, supple, full ROM Respiratory: no wheezing, no rales, no rhonchi, clear to auscultation bilateral Cardiovascular: RRR Gastrointestinal: soft, non-tender, no distention, positive bowel sounds Musculoskeletal: pulses present, edema present (mild) Neurological: non-focal, normal sensation, moves all 4 limbs Psychiatric: normal affect, A&O x 3 Skin: no rash Dx/Plan (1) Acute CHF Code(s): I50.9 - HEART FAILURE, UNSPECIFIED Status: Acute Qualifiers: Heart failure type: diastolic Qualified Code(s): I50.31 - Acute diastolic ( congestive) heart failure Comment: improving (2) Demand ischemia Code(s): I24.8 - OTHER FORMS OF ACUTE ISCHEMIC HEART DISEASE Status: Acute (3) DMII (diabetes mellitus, type 2) Status: Chronic (4) HTN (hypertension), benign Code(s): I10 - ESSENTIAL (PRIMARY) HYPERTENSION Status: Chronic (5) CAD (coronary artery disease) Code(s): I25.10 - ATHSCL HEART DISEASE OF [place] CORONARY ARTERY W/O ANG PCTRS Status: Chronic (6) PAD (peripheral artery disease) Code(s): I73.9 - PERIPHERAL VASCULAR DISEASE, UNSPECIFIED Status: Chronic (7) Acute hypoxemic respiratory failure Code(s): J96.01 - ACUTE RESPIRATORY FAILURE WITH HYPOXIA Status: Resolved (8) Cardiomyopathy Code(s): I42.9 - CARDIOMYOPATHY, UNSPECIFIED Status: Acute Qualifiers: Cardiomyopathy type: ischemic Qualified Code(s): I25.5 - Ischemic cardiomyopathy Comment: Life vest fitted (9) H/O carotid artery stenosis Code(s): Z86.79 - PERSONAL HISTORY OF OTHER DISEASES OF THE CIRCULATORY SYSTEM Status: Chronic (10) Subclavian arterial stenosis Code(s): I77.1 - STRICTURE OF ARTERY Status: Acute Comment: s/p B/L stenting 08/01/17 (11) Ischemic cardiomyopathy Code(s): I25.5 - ISCHEMIC CARDIOMYOPATHY Status: Chronic (12) Aortic stenosis, severe Code(s): I35.0 - NONRHEUMATIC AORTIC (VALVE) STENOSIS Status: Chronic - Plan OK to DC home today.cleared by cardiology -: OP f/u w Cardiology for Cath etc.will need repeat ECHO for ? AICD -: F/U w Dr. Bailey for TAVR & CEA ,right. -: cont ASA.Plavix added. cont low dose BB,FADIA-I w lasix. -: BP low & aldactone can not be added at this time * . Review of Systems - Review of Systems Constitutional: weakness. negative: fever, chills, sweats, malaise, other Respiratory: negative: Cough, Dry, Shortness of Breath, Hemoptysis, SOB with Excertion, Pleuritic Pain, Sputum, Wheezing Cardiovascular: negative: chest pain, palpitations, orthopnea, paroxysmal nocturnal dyspnea, edema, light headedness, other Gastrointestinal: negative: Nausea, Vomiting, Abdominal Pain, Diarrhea, Constipation, Melena, Hematochezia, Other Genitourinary: negative: Dysuria, Frequency, Incontinence, Hematuria, Retention , Other Musculoskeletal: negative: Neck Pain, Shoulder Pain, Arm Pain, Back Pain, Hand Pain, Leg Pain, Foot Pain, Other Skin: negative: Rash, Lesions, Alessandro, Bruising, Other Neurological: negative: Weakness, Numbness, Incoordination, Change in Speech, Confusion, Seizures, Other - Medications/Allergies Allergies/Adverse Reactions: Allergies Allergy/AdvReac Type Severity Reaction Status Date / Time Penicillins Allergy Rash Verified 07/25/17 18:07 Medications: Current Medications Acetaminophen (Tylenol) 650 mg PO Q4H PRN PRN Reason: Headache/Fever or Pain Al Hydroxide/Mg Hydroxide (Maalox) 30 ml PO Q6H PRN PRN Reason: Heartburn or Indigestion Aspirin (Ecotrin) 325 mg PO DAILY [facility] Last Admin: 08/04/17 08:10 Dose: 325 mg Atorvastatin Calcium (Lipitor) 40 mg PO HS [facility] Last Admin: 08/03/17 20:56 Dose: 40 mg Benzonatate (Tessalon) 100 mg PO Q4H PRN PRN Reason: Cough Bisacodyl (Dulcolax) 10 mg PO DAILYPRN PRN PRN Reason: Constipation Calcium Carbonate (Tums) 1,000 mg PO Q4H PRN PRN Reason: Heartburn or Indigestion Carvedilol (Coreg) 3.125 mg PO BID-[facility] Last Admin: 08/04/17 08:09 Dose: 3.125 mg Clonidine (Catapres) 0.1 mg PO Q4H PRN PRN Reason: Systolic BP > 180 Clopidogrel Bisulfate (Plavix) 75 mg PO DAILY [facility] Last Admin: 08/04/17 08:09 Dose: 75 mg Dextrose/Water (Dextrose 50%) 25 gm SLOW IVP PRN PRN PRN Reason: Hypoglycemia Diphenhydramine HCl (Benadryl) 12.5 mg PO Q6H PRN PRN Reason: Itching & Insomnia Last Admin: 07/26/17 02:54 Dose: 12.5 mg Docusate Sodium (Colace) 100 mg PO BID [facility] Last Admin: 08/04/17 08:10 Dose: Not Given Enoxaparin Sodium (Lovenox) 40 mg SC 0900 [facility] Last Admin: 08/04/17 08:10 Dose: 40 mg Famotidine (Pepcid) 20 mg PO BID [facility] Last Admin: 08/04/17 08:09 Dose: 20 mg Furosemide (Lasix) 40 mg PO DAILY-AC [facility] Last Admin: 08/04/17 08:10 Dose: 40 mg Glucagon (Glucagon) 1 mg IM PRN PRN PRN Reason: Hypoglycemia Guaifenesin (Robitussin Sf) 200 mg PO Q4H PRN PRN Reason: Cough Hydralazine HCl (Apresoline) 10 mg SLOW IVP Q4H PRN PRN Reason: Systolic BP > 180 Dextrose/Water (D5w) 1,000 mls @ 0 mls/hr IV .Q0M PRN; As Directed PRN Reason: Hypoglycemia Insulin Human Lispro (Humalog) 0 units SC .MODERATE SLIDING SC PRN PRN Reason: Moderate Correctional Scale Last Admin: 08/04/17 12:51 Dose: 4 units Insulin Human Lispro (Humalog) 0 units SC .BEDTIME SLIDING SC PRN PRN Reason: Bedtime Correctional Scale Last Admin: 08/02/17 21:52 Dose: 2 unit Lisinopril (Zestril) 2.5 mg PO BID [facility] Last Admin: 08/04/17 08:09 Dose: 2.5 mg Loratadine (Claritin) 10 mg PO DAILYPRN PRN PRN Reason: Sinus Symptoms Magnesium Hydroxide (Milk Of Magnesium) 30 ml PO DAILYPRN PRN PRN Reason: Constipation Last Admin: 07/31/17 12:17 Dose: 30 ml Nitrofurantoin Macrocrystals (Macrodantin) 100 mg PO BID [facility] Stop: 08/11/17 09:01 Last Admin: 08/04/17 12:50 Dose: 100 mg Nitroglycerin (Nitrostat) 0.4 mg SL Q5MIN PRN PRN Reason: Chest Pain Ondansetron HCl (Zofran) 4 mg IVP Q6H PRN PRN Reason: Nausea/Vomiting Last Admin: 07/26/17 03:53 Dose: 4 mg Senna (Senokot) 2 tab PO HSPRN PRN PRN Reason: Constipation Sodium Chloride (Flush - Normal Saline) 10 ml IVF Q12HR [facility] Last Admin: 08/04/17 08:13 Dose: 10 ml Sodium Chloride (Flush - Normal Saline) 10 ml IVF PRN PRN PRN Reason: Saline Flush Tramadol HCl (Ultram) 50 mg PO Q4H PRN PRN Reason: Moderate Pain (4-6) Last Admin: 08/04/17 12:51 Dose: 50 mg
--- NOTE | 2017-08-04 13:56 | DIS ---
DATE OF ADMISSION: 07/25/2017 DATE OF DISCHARGE: 08/04/2017 PRIMARY CARE PHYSICIAN: Xavier Leonard M.D. CONDITION AT THE TIME OF DISCHARGE: Stable and improved. DISCHARGE DISPOSITION: Home with [facility]. DISCHARGE MEDICATIONS: Are as follows; insulin 70/30 10 units t.i.d., Zetia 10 mg daily, atorvastati n 40 mg daily, Levemir 35 units at bedtime, aspirin 325 mg daily, ranitidine 150 mg daily, Lasix 40 m g daily. New medications are as follows; Macrodantin 100 mg p.o. b.i.d., lisinopril 12.5 mg p.o. b.i .d., Plavix 75 mg b.i.d., and Coreg 3.125 mg p.o. b.i.d. DISCHARGE DIAGNOSES: 1. Acute hypoxic respiratory failure. 2. Acute systolic congestive heart failure. 3. Demand ischemia. 4. Diabetes mellitus type 2. 5. Hypertension. 6. Coronary artery disease. 7. Peripheral arterial disease. 8. Ischemic cardiomyopathy. The patient has been fitted with LifeVest. 9. History of carotid artery stenosis. 10. Chronic subclavian arterial stenosis status post bilateral subclavian artery stenosis by Dr. Radha hartmann on 08/01/2017. 11. Severe aortic stenosis. INHOUSE CONSULTATIONS: 1. Cardiology, Dr. More. 2. Cardiovascular Surgery, Dr. Bailey. PROCEDURES PERFORMED IN HOSPITAL: Includes, 1. Transthoracic echocardiogram which shows EF of 10%-15% with global hypokinesis and moderate to se farhana aortic stenosis with valve area of 1 square cm. Severe tricuspid regurgitation is also noticed. Moderate aortic regurgitation. 2. CT angio of the chest which is negative for any pulmonary embolism and shows small bilateral pleu ral effusion, atherosclerosis, and cholelithiasis. 3. Renal ultrasound which shows a small left renal cyst, but no specific kidney masses. 4. CT angiogram of the neck on 07/28/2017 which shows left carotid endarterectomy status and stenosi s of the remaining left internal carotid artery at 80% and high grade stenosis at the proximal right internal carotid artery and aberrant origin of the right subclavian artery with near complete stenosi s and high grade stenosis at the origin of the left subclavian artery. 5. Bilateral subclavian artery stenting on 08/01/[address] Bailey. 6. Placement of the LifeVest prior to discharge. HISTORY OF PRESENTING ILLNESS: Ms. Smallwood is a very pleasant 72-year-old -[place] female wit h known history of coronary artery disease status post CABG in the past as well as diabetes, hyperten berkley, and peripheral vascular disease who presented to the emergency room with worsening shortness of breath and lower extremity swelling. She was found to be in acute CHF, but rather hemodynamically s table. She reported that she was recently taken off of her blood pressure medications by the primary care physician because her blood pressure was running low. These medications included Lasix, beta b locker, and FADIA inhibitors, among others. Nevertheless, the patient was found to be in mild pulmonar y congestion. Her D-dimer was elevated to 0.[address] angio was done which was negative. Her initia l troponin was 0.147 with CK-MB of 2 and BNP was almost 3,000. She was admitted with a presumptive d iagnosis of acute systolic CHF and was started on diuretics and Cardiology was consulted. Respirator y viral pathogen was ordered which was negative. Please see admission history and physical for furth er details. Cardiology saw the patient and agreed with the diuresis. Echocardiogram unfortunately showed moderat e to severe aortic stenosis with significant cardiomyopathy with EF in the 10%-15% range. Dr. More h as seen this patient in the past and she has known history of subclavian artery stenosis. Prior to p roceeding with any form of cardiac invasive procedure, Dr. More wanted to get the subclavian artery s tenosis addressed. For this reason, Dr. Bailey from CT Surgery was consulted and CT arteriogram confi rmed the findings of bilateral subclavian artery stenosis. The patient underwent bilateral stenting and tolerated the procedure well. She was gradually started on low dose Coreg and lisinopril along w ith continuation of the Lasix which she tolerated well. It was decided that she will undergo possible TAVR for the aortic stenosis and right carotid endarter ectomy as an outpatient. At this time, she is fitted with a LifeVest for ischemic cardiomyopathy and the plan is to get a repeat echocardiogram in 2-3 weeks as an outpatient to see if her EF picks up. If her EF is still low; she would qualify for an AICD. Cardiac catheterization would be entertained at the same time by Dr. More as an outpatient. As of this morning, the patient is almost back to her baseline and is on oral Lasix which she is tole rating well. She has been started on low dose beta jerica and FADIA inhibitor which is also being murphy erated okay. She has also been started on Plavix. New medication prescriptions were provided to the patient. Discharge plan was discussed with her and she verbalized understanding. She was seen and examined prior to discharge. Please see the hospitalist's progress note from today' s date for further detail including [id number] interaction. Cardiology has cleared the patient for discharge. Total time spent in the discharge of this patient 38 minutes.
[2017-08-04 14:21] VITALS: BP 128/62
== END 2017-08-04 16:07 | disposition home health service (06) | DRG 252 ==
LOC: ERS 08:54 → 2NO 12:26
PROVIDERS: ADMIT Internal Medicine; ATTEND Internal Medicine
PROC: B41D1ZZ Fluoroscopy of Aorta and Bilateral Lower Extremity Arteries using Low Osmolar Contrast (ICD-10-PCS; principal; 2017-08-01)
PROC: 037434Z Dilation of Left Subclavian Artery with Drug-eluting Intraluminal Device, Percutaneous Approach (ICD-10-PCS; 2017-08-01)
PROC: 037 Upper Arteries, Dilation (ICD-10-PCS; 2017-08-01)
PROC: B3121ZZ Fluoroscopy of Left Subclavian Artery using Low Osmolar Contrast (ICD-10-PCS; 2017-08-01)
PROC: B31F1ZZ Fluoroscopy of Left Vertebral Artery using Low Osmolar Contrast (ICD-10-PCS; 2017-08-01)
DX: I11.0 Hypertensive heart disease with heart failure (principal); J96.01 Acute respiratory failure with hypoxia; I24.8 Other forms of acute ischemic heart disease; N39.0 Urinary tract infection, site not specified; I25.5 Ischemic cardiomyopathy; E11.9 Type 2 diabetes mellitus without complications; I25.10 Atherosclerotic heart disease of native coronary artery without angina pectoris; I73.9 Peripheral vascular disease, unspecified; I35.0 Nonrheumatic aortic (valve) stenosis; Z95.1 Presence of aortocoronary bypass graft; Z87.891 Personal history of nicotine dependence; E66.01 Morbid (severe) obesity due to excess calories; E78.5 Hyperlipidemia, unspecified; N28.89 Other specified disorders of kidney and ureter; I50.43 Acute on chronic combined systolic (congestive) and diastolic (congestive) heart failure; I77.1 Stricture of artery
CPT/HCPCS: 36215; 36415; 36416; 37236; 37237; 70498; 71045; 71275; 75716; 76770; 76942; 80048; 80053; 81003; 81015; 82553; 83880; 84484; 85025; 85347; 85379; 87077; 87086; 87186; 87633; 87798; 93005; 93306; 93798; 96374; A4216; C1725; C1769; C1876; C1887; J0360; J1644; J1650; J1940; J1956; J2001; J2405; J2720; J3010

== ENCOUNTER 2018-06-28 00:50 | Inpatient (IN) | payer MEDICARE, MEDICAID ==
[2018-06-28 01:37] LABS: Hemoglobin 13.4 g/dL (12.0-16.0); Mean Corpuscular HGB CONC 30.7 g/dL (32.0-36.0); Mean Corpuscular Volume 94.5 fL (78.0-98.0); RBC Distribution Width 14.9 % (11.5-14.5); Red Blood Cell (RBC) Count 4.61 mill/uL (4.20-5.40); White Blood Cell (WBC) Count 11.5 thou/uL (4.8-10.8)
[2018-06-28 01:49] LABS: ALT (SGPT) 34 U/L (8-55); AST (SGOT) 34 U/L (5-34); Albumin 3.9 g/dL (3.4-4.8); Alkaline Phosphatase 119 U/L (40-150); Anion Gap 16 mmol/L (10-20); BUN (Urea Nitrogen) 19 mg/dL (9.8-20.1); Calc. Creatinine Clearance 0 mL/min (70-130); Calcium 9.4 mg/dL (7.8-10.44); Carbon Dioxide 23 mmol/L (23-31); Chloride 103 mmol/L (98-107); Estimated GFR-MDRD 64; Globulin 3.8 g/dL (2.4-3.5); Glucose 121 mg/dL (83-110); Potassium 3.9 mmol/L (3.5-5.1); Protein, Total 7.7 g/dL (6.0-8.3); Sodium 138 mmol/L (136-145)
[2018-06-28 01:53] LABS: #Lymphocytes 1.1 thou/uL (1.20-3.40); #Monocytes 0.7 thou/uL (0.11-0.59); #Neutrophils 9.7 thou/uL (1.40-6.50); %Basophils 0.1 % (0.0-1.0); %Eosinophils 0.2 % (0.0-10.0); %Lymphocytes 9.6 % (21.0-51.0); %Monocytes 5.7 % (0.0-10.0); %Neutrophils 84.4 % (42.0-75.0); MDiff Complete? YES; Platelet Clumps SLIGHT; Platelet Count 67 thou/uL (130-400); Platelet Morphology Comment PLT clumps seen-LOW
[2018-06-28 02:12] LABS: CKMB 1.8 ng/mL (0-6.6)
[2018-06-28] MEDS ORDERED: Nitroglycerin 2% Ointment 1 INCH/1 GM Packet ONE (02:17)
[2018-06-28] MEDS ORDERED: Morphine 2 MG/ML SYRINGE ONE ×2 (02:22→06:28)
[2018-06-28] MEDS ORDERED: Enoxaparin Sodium 100 MG/ML SYRINGE ONE (02:22)
[2018-06-28 05:31] LABS: Critical Call Chem Troponin I RESULT DECREASING; Troponin I 2.117 ng/mL (< 0.028)
[2018-06-28] MEDS ORDERED: Ondansetron PF 4 MG/2 ML Vial ONE (06:29)
[2018-06-28] MEDS ORDERED: Dextrose 5% in Water 1,000 ML IV PRN (07:52)
[2018-06-28] MEDS ORDERED: Dextrose 50% Abboject 50 ML SYRINGE SLOW IVP PRN (07:52)
[2018-06-28] MEDS ORDERED: Sodium Chloride 0.9% 1,000 ML IV SCH (08:00)
[2018-06-28 08:11] LABS: Critical Call Chem Troponin I RESULT DECREASING; Troponin I 2.114 ng/mL (< 0.028)
[2018-06-28] MEDS ORDERED: Famotidine/PF 20 mg/2ml Vial ONE (08:21)
--- NOTE | 2018-06-28 08:35 | RAD ---
CHEST 1 VIEW: HISTORY: Intermittent chest pain. Cough. COMPARISON: 07/25/2017. FINDINGS: There is evidence of a left-sided transvenous defibrillator with lead position that is atypical in or ientation. There appears to be a lead projecting over the upper cardiac silhouette. Confirmation of lead position is strongly recommended. Heart is enlarged. The pulmonary vessels and hilum are norm al. Costophrenic angles are clear. No consolidation or mass. Atherosclerosis of the aorta is noted . No pneumothorax or osseous abnormalities. IMPRESSION: 1. Cardiomegaly. Atherosclerosis. 2. Atypical positioning of a transvenous defibrillator. Confirmation of lead position with a cardio logy consultation is recommended. Results of the study were discussed with Dr. Kennedy on 06/28/2018 at 7:54 a.m. CODE RUPERT POS: MANNY
[2018-06-28] MEDS: Famotidine/PF 20 mg/2ml Vial SLOW IVP SCH ×2 (08:41→22:13)
[2018-06-28] MEDS ORDERED: HYDROmorphone 0.5 MG/0.5 ML SYRINGE IVPB SCH (08:45)
[2018-06-28] MEDS ORDERED: Enoxaparin Sodium 100 MG/ML SYRINGE SC SCH (09:00)
[2018-06-28 10:42] LABS: Hemoglobin 11.7 g/dL (12.0-16.0); Mean Corpuscular HGB CONC 31.7 g/dL (32.0-36.0); Mean Corpuscular Hemoglobin 30.1 pg (27.0-31.0); RBC Distribution Width 14.9 % (11.5-14.5); Red Blood Cell (RBC) Count 3.88 mill/uL (4.20-5.40); White Blood Cell (WBC) Count 11.4 thou/uL (4.8-10.8)
[2018-06-28 11:00] LABS: #Lymphocytes 0.9 thou/uL (1.20-3.40); #Neutrophils 9.5 thou/uL (1.40-6.50); %Lymphocytes 7.8 % (21.0-51.0); %Monocytes 8.4 % (0.0-10.0); %Neutrophils 83.8 % (42.0-75.0); Band 8 % (5-11); Burr Cells SLIGHT = 2-5 cells (100X) (0-1/hpf); Eosinophils 1 % (0-10); Lymphocytes 6 % (21-51); MDiff Complete? YES; Mean Platelet Volume 12.1 fL (7.4-10.4); Monocytes 9 % (0-10); Neutrophil 75 % (42-75); Platelet Clumps MARKED; Platelet Count 154 thou/uL (130-400); Schistocytes SLIGHT = 2-5 cells (100X) (0-1/hpf)
--- NOTE | 2018-06-28 11:36 | CON ---
DATE OF CONSULTATION: 06/28/2018 INDICATION FOR CONSULTATION: A 73-year-old female with an extensive history of coronary artery disease, bypass surgery, peripheral vascular disease, diabetes, hypertension, and also severe decrease in left ventricular systolic function was seen in the emergency room due to chest pain. HISTORY OF PRESENT ILLNESS: This is a very unfortunate 73-year-old female whom I have followed for many years now. She has a history of severe three-vessel coronary artery disease. She has undergone bypass surgery x4 with HACKETT to the left anterior descending artery, saphenous vein graft to the right coronary artery, and also she had saphenous vein graft to the first obtuse marginal branch of the left circumflex and another graft to the second obtuse marginal branch, which was then anastomosed to the saphenous vein graft that fills the first obtuse marginal branch. Her last cardiac catheterization was in 2015 at which time she had 80% stenosis in the left anterior descending artery. She had 100% occlusion of the right coronary artery and 100% occlusion of the saphenous vein graft to the right coronary artery. She had 10% stenosis in the HACKETT graft that fed the left anterior descending artery. She also had an 80% stenosis in the second obtuse marginal branch. She did have flow down the HACKETT to the left anterior descending artery. However, she had a stenosis noted and gradient across the ostium of the left subclavian, then subsequently underwent angioplasty by Dr. Bailey to both bilateral subclavians due to stenosis in July 2017. She also was noted to have severe decrease in left ventricular systolic function in July 2017 and then eventually I believe sometime in late 2018 underwent AICD implant. Ejection fraction was felt to be 10% to 15% in August 2017. She had a repeat echocardiogram which still showed decrease in ejection fraction. Her last echocardiogram was done in August 2017, which showed severe diastolic dysfunction, mild to moderate mitral valve regurgitation, mild mitral annular calcifications, moderate to severe aortic valve stenosis, mild aortic valve regurgitation, and severe tricuspid valve regurgitation. There have been some discussions whether she could possibly undergo a TAVR but it is very difficult to gain access. She has severe peripheral vascular disease. The thought was that perhaps if the left subclavian was opened with stent which was performed, then eventually she could be a candidate to undergo a TAVR via the left subclavian. She also has severe carotid artery stenosis. She has undergone a left carotid endarterectomy in 2016. She still continues to have severe right internal carotid artery stenosis, which has not been intervened upon. She has been followed by Dr. Bailey. This has been routinely followed, and as long as she has patent flow in the left side without symptoms, then most likely she will not be a candidate to undergo further intervention at this time. She also has significant diabetes and says that she has been having chest pain on and off and usually when she has chest pain, this is associated with her diabetes being too high and she takes insulin and then the pain goes away. She has been having chest pain on and off for several days, which again has been relieved by the insulin. She presented to the emergency room today after she states she got up, she had some discomfort, she took her insulin, she did not take the shower. When she got on the shower, she began shaking and then presented to the emergency room, not due to the chest pain was so much but for shaking. She has also been complaining of some right scapular pain. She has been coughing for about a month. The coughing has improved. She was felt to have bronchitis from a viral etiology. She has also had some nausea on a daily basis and today in the emergency room did have some vomiting. Unfortunately, in the emergency room today, also her cardiac enzymes were abnormal with a troponin I of 2.19, which decreased now down to 2.11. Her MB was 1.8. Her BNP was 3760. She does have some lower extremity edema and has complained of edema for a long time. She does take diuretics, but still the edema persists, and I suspect this has a lot to do with her diastolic dysfunction which is severe as well as her severe left ventricular systolic dysfunction. She did have an EKG today which shows left ventricular hypertrophy and T-wave changes associated with the left ventricular hypertrophy, but she remains in sinus rhythm. Her EKG has nonspecific T-wave changes, and these have remained unchanged since 2016. At this time, she is still continuing to have some right scapular pain, some upper abdominal pain, chest discomfort which comes and goes. She has been given morphine, then had nausea and vomiting. She is now going to be given Dilaudid to see if we can improve some of her discomfort. Otherwise, she appears to be relatively stable. The blood pressure and vital signs have remained stable, and EKG remains unchanged despite having the pain that comes and goes. It is certainly concerning, the cardiac enzymes. We will need to follow this on a routine basis. PAST MEDICAL HISTORY: Her past medical history consists of the following. Coronary artery disease, bypass surgery as noted above, hypertension, hypercholesterolemia. She has had renal artery stenosis in the past. She had a left iliac occlusion. She has had bilateral stent placements to the subclavians. She has a history of obesity. She has had type 2 diabetes and gastroesophageal reflux disease. She has had a hysterectomy and bilateral tubal ligation. She has had the left carotid endarterectomy performed. She has had an AICD implant. She has a history of severe diastolic dysfunction as well as systolic dysfunction. SOCIAL HISTORY: She lives at home. She stopped smoking in 1995. Previous to that, she had about a [id number] history of smoking. No alcohol use. FAMILY HISTORY: Positive for heart disease in later age in her family. ALLERGIES: SHE IS ALLERGIC TO PENICILLIN, WHICH CAUSES HER TO HAVE URTICARIA. MEDICATIONS: Her medications prior to admission included, 1. Atorvastatin 40 mg a day. 2. Aspirin 325 mg a day. 3. NovoLog insulin as well as Levemir insulin. 4. Ezetimibe 10 mg once a day. 5. Lisinopril 2.5 mg a day. 6. Coreg 3.125 mg b.i.d. 7. Plavix 75 mg a day. 8. Lasix 20 mg two in the morning and one at noon. 9. Potassium 20 mEq daily. REVIEW OF SYSTEMS: Positive for the following; the chest pain, right scapular pain, nausea, occasional vomiting, lower extremity edema, and slight change in her eyesight for which she has received new glasses. Otherwise, a 12-point review of systems is unremarkable. PHYSICAL EXAMINATION: GENERAL: Reveals an elderly female, who sometimes appears to be uncomfortable, other times appears to be very comfortable. She is alert. She is oriented. VITAL SIGNS: Her blood pressure is 131/69, heart rate is 80 and regular, respiratory rate 16. She is afebrile. HEENT: Reveals her head to be normocephalic and atraumatic. She has very soft bilateral carotid bruits. I cannot feel a pulse on the right side very well. The left side appears to have a good pulse. CHEST: Clear to auscultation. I do not hear any rales, rhonchi, or wheezing. She has tenderness over the right scapular area. She has well-healed midline surgical incision after median sternotomy. She has a well-healed surgical incision in the left infraclavicular area after an AICD implant. This appears to be stable. CARDIOVASCULAR: Reveals a regular rate and rhythm. At this time, she has a systolic murmur heard over the entire precordium, at the apex as well as at the aortic area compatible with mitral valve regurgitation as well as aortic valve stenosis. ABDOMEN: Soft and nontender. I did not elicit any masses. Positive bowel sounds are present. EXTREMITIES: Unable to feel any femoral pulses. I did hear right femoral bruit. I cannot hear A left femoral bruit. In the lower extremities, she has 2+ lower extremity edema. Pedal pulses are not palpable. NEUROLOGIC: She appears to be relatively intact and she did not get off the stretcher for evaluation, but otherwise appeared to be relatively stable. SKIN: Looks warm and dry at this time. LABORATORY DATA: Shows a WBC of 11.5, hemoglobin of 13.4, hematocrit of 43.6, platelet count was 67,000, on the low side. BUN was 19 with a creatinine of 1.03, glucose was 121, potassium 3.9. Troponin I as noted above with an MB of 1.8. BNP was 3760. In the emergency room, she was given morphine, Zofran, nitroglycerin, and aspirin, and then will also be given Dilaudid for her pain since this has not been well taken care of by the morphine. IMPRESSION AND PLAN: 1. Coronary artery disease, chest pain, status post bypass surgery and abnormal cardiac enzymes with elevated troponin I, but CPK-MBs remained very low. We will continue to monitor the patient since she has had no acute ST-segment changes. We will continue to monitor the cardiac enzymes. She is a very poor candidate to proceed with any type of cardiac intervention unless she becomes more emergent or the enzymes continue to increase. Due to her severe peripheral vascular disease, she has very poor access. Evaluating the arteries on her last evaluation, she did have significant stenosis in her chenega vessels and also had some stenosis in one saphenous vein graft that remained patent to the obtuse marginal branch. There was also some mild narrowing in the HACKETT that fed the left anterior descending artery. Apparently, there was some competitive filling of the left anterior descending artery via the HACKETT as well as chenega flow down the vessel. We will continue to follow her very carefully. 2. History of cardiomyopathy, both systolic and diastolic. She underwent automatic implantable cardioverter defibrillator placement in October 2017 due to severe decrease in left ventricular systolic function with ejection fraction of 15%. We will repeat the echocardiogram for evaluation to see if she has had further deterioration or improvement or if there are any other structural abnormalities. The chest x-ray did not show any significant abnormalities for the AICD, but the lead does appear to be somewhat high along the septum in the right ventricle. 3. History of diabetes. This is to be dealt with by the primary care service. She says that when her diabetes is elevated, then she gets chest pain; as soon as she gets the blood sugar down, then the pain goes away. However, today her blood sugar was in the 100s and still she complained of some chest discomfort. 4. Severe peripheral vascular disease. We will continue to monitor this. I am not sure if there is any other intervention that can be performed on this lady as far as her peripheral vascular disease is concerned. With her diastolic and systolic heart failure with continued diuretics, she may need further diuretics and eventually may need to have Nephrology see the patient. She does have some history of renal artery stenosis, but the creatinine remains stable, and the blood pressure is not severely elevated. We will continue to follow the patient with you through her hospital course. Job ID: [id number]
[2018-06-28] MEDS ORDERED: Dextrose 50% Abboject 50 ML SYRINGE ONE (12:44)
--- NOTE | 2018-06-28 13:13 | HP ---
SUBJECTIVE: The patient is seen and examined at the bedside. She is in the emergency room #22 hold. Complains of chest pain. HISTORY OF PRESENT ILLNESS: The patient is a 73-year-old female, who started having some chest pains recently and it got worse last night to the point that she started feeling cold and she got short of breath and she called EMS and was transferred to the emergency room for further evaluation. Her troponin I is elevated at more than 2 this morning and decision was made about further admission for acute coronary syndrome. PAST MEDICAL HISTORY: 1. Coronary artery disease, status post coronary artery bypass graft. 2. Diabetes mellitus. 3. Dyslipidemia. 4. Morbid obesity. 5. Hypertension. 6. Peripheral vascular disease. PAST SURGICAL HISTORY: 1. Hysterectomy. 2. CABG x4 in 2003. 3. Carotid endarterectomy. ALLERGIES: PENICILLIN. SOCIAL HISTORY: She quit 10 years ago. She does not use any alcohol or illicit drugs. FAMILY HISTORY: Father and mother in their 80s. Father had hypertension. Mother had diabetes. CURRENT MEDICATIONS: Please refer to the medication list. REVIEW OF SYSTEMS: CONSTITUTIONAL: Negative for weight loss or weight gain. Positive for feeling cold. CARDIOVASCULAR: Positive for chest pain. Negative for palpitations. RESPIRATORY: Positive for shortness of breath. Positive for some productive cough with mucus. Negative for hemoptysis. GASTROINTESTINAL: Positive for some nausea and vomiting. : Negative for dysuria or hematuria. MUSCULOSKELETAL: Positive for pain in both feet and burning. SKIN: Negative for rash or erythema. PHYSICAL EXAMINATION: VITAL SIGNS: Blood pressure is 132/69, pulse is 82, respiratory rate is 20, O2 saturation is 100% on 1 L by nasal cannula. HEENT: Her head is atraumatic and normocephalic. Eyes are PERRLA. Sclerae nonicteric. Oral mucosa is somewhat dry. Conjunctivae palish. NECK: Supple. No lymphadenopathy. Thyroid is not palpable. LUNGS: Clear breath sounds, slightly diminished at the left base, but no crackles. No wheezing. HEART: S1 and S2 normal. No S3. No S4. ABDOMEN: Soft. Nontender. Bowel sounds are present. No organomegaly. EXTREMITIES: No clubbing or cyanosis. There is 1 to 2+ peripheral edema similar bilateral on both lower extremities. NEUROLOGIC: She is following my commands. She moves her all four extremities. She has some decreased sensation over her feet to touch and heat. SKIN: No rash or erythema. LABORATORY DATA: Showed a white count of 11.5, hemoglobin of 13.4, hematocrit 43.6, platelet count is 67,000. Chemistry showed normal electrolytes, BUN of 19, creatinine 1.03, glucose 121, total bilirubin 2.0. CK-MB 1.8. Troponin 2.190 and 2.117. BNP of 3760, and globulin of 3.8. DIAGNOSTIC DATA: EKG showed sinus tachycardia with a ventricular rate of 106, some changes of the T-waves, which are flipped in the lateral precordial leads and ST-segment is depressed in I, II, and aVL, but does changes exactly the same on the EKG she had few months ago when she was hospitalized at [facility]. Chest x-ray showed cardiomegaly and slightly increased interstitial markings on both sides. IMPRESSION: 1. Ant-CJ-gzpsishiq myocardial infarction. 2. Thrombocytopenia. 3. Coronary artery disease. 4. Diabetes mellitus type 2. 5. Dyslipidemia. 6. Hypertension. 7. Peripheral vascular disease. 8. Morbid obesity. PLAN: Admission to telemetry. Condition is guarded. IV 70 mL/h of normal saline. The patient received Lovenox 90 mg subcutaneously in the emergency room since she has thrombocytopenia of unclear etiology. We will discuss the case with Dr. More, her primary real estate agency principal, regarding anticoagulation/anti-platelet therapy. The patient received aspirin 324 mg in the emergency room. We will have fentanyl IV push to control chest pain and obviously Dr. More is consulted. Job ID: [id number]
[2018-06-28 15:36] VITALS: BMI 36.1
[2018-06-28 16:54] LABS: CKMB 2.8 ng/mL (0-6.6)
[2018-06-28] MEDS ORDERED: Prevnar 13-Val Conj/PF 0.5 ML SYRINGE IM ONE (21:00)
[2018-06-28 21:12] LABS: Troponin I 1.398 ng/mL (< 0.028)
[2018-06-28] MEDS: HumaLOG 300 UNITS/3 ML VIAL SC PRN (22:14)
[2018-06-29] MEDS: Fentanyl 100 MCG/2 ML VIAL SLOW IVP PRN ×3 (03:28→12:17)
[2018-06-29 06:00] LABS: Anion Gap 12 mmol/L (10-20); BUN (Urea Nitrogen) 18 mg/dL (9.8-20.1); Calc. Creatinine Clearance 82 mL/min (70-130); Carbon Dioxide 26 mmol/L (23-31); Chloride 101 mmol/L (98-107); Estimated GFR-MDRD 74; Glucose 207 mg/dL (83-110); Potassium 3.7 mmol/L (3.5-5.1); Sodium 135 mmol/L (136-145)
[2018-06-29 06:48] LABS: #Lymphocytes 1.1 thou/uL (1.20-3.40); #Monocytes 0.6 thou/uL (0.11-0.59); #Neutrophils 5.4 thou/uL (1.40-6.50); %Basophils 0.5 % (0.0-1.0); %Eosinophils 0.4 % (0.0-10.0); %Lymphocytes 15.3 % (21.0-51.0); %Monocytes 7.8 % (0.0-10.0); %Neutrophils 76.1 % (42.0-75.0); Hemoglobin 10.1 g/dL (12.0-16.0); MDiff Complete? YES; Mean Corpuscular HGB CONC 31.4 g/dL (32.0-36.0); Mean Corpuscular Hemoglobin 29.6 pg (27.0-31.0); Mean Platelet Volume 8.5 fL (7.4-10.4); Platelet Clumps MODERATE; Platelet Count 118 thou/uL (130-400); RBC Distribution Width 14.7 % (11.5-14.5); Red Blood Cell (RBC) Count 3.41 mill/uL (4.20-5.40); White Blood Cell (WBC) Count 7.1 thou/uL (4.8-10.8)
[2018-06-29] MEDS: Aspirin 325 mg Enteric Coated Tablet PO SCH (07:57)
[2018-06-29] MEDS: Famotidine/PF 20 mg/2ml Vial SLOW IVP SCH ×2 (07:57→21:08)
[2018-06-29] MEDS: HumaLOG 300 UNITS/3 ML VIAL SC PRN ×2 (09:25→12:17)
--- NOTE | 2018-06-29 12:36 | PDOC.CTH ---
Cardiology Progress Note - Subjective The pt seen and examined. No overnight events. No cardiac complaints. Severe pain to her Rt 1st toe due to gout and has not been on Steroid (30mg x 1 day, 20mg x 1 day, and 10mg x1 day). - Objective Vital Signs Temp Pulse Resp BP Pulse Ox 06/29/18 12:13 97.4 F L 79 20 121/59 L 98 06/29/18 08:00 100 06/29/18 07:45 97.9 F 80 22 H 120/60 100 06/29/18 02:55 99.7 F H 81 13 121/60 100 Weight 204 lb 6.4 oz 06/28/18 06/29/18 06/30/18 06:59 06:59 06:59 Intake Total 930 Output Total 650 Balance 280 - Physical Examination General/Neuro: alert & oriented x3 Neck: no JVD present Lungs: other: (diminished at bases) Heart: RRR Abdomen: soft Extremities: other: (No edema; swelling to Rt 1st toe) - Telemetry Telemetry Rhythm: SR - Labs Result Diagrams: 06/29/18 05:09 06/29/18 05:09 Troponin/CKMB CK-MB (CK-2) 2.8 ng/mL (0-6.6) 06/28/18 16:15 Troponin I 1.398 ng/mL (< 0.028) H* 06/28/18 20:08 - Assessment/Plan 1. NSTEMI - one episode of CP this AM with no ECG changed; stable at this moment. Not good candidate for further cardiac procedure. 2. Ischemic CMY with AICD placement in 2018 - EF 15-20% on 06/28/2018. 3. CAD with hx of CABG in 2004 and cath in 2016 with severe subq stenosis prior to take of HACKETT; Resume Plavix and Coreg 3.125mg BID. Will resume Lasix and Lisinopril when her VS is more stable; 4. HTN - stable 5. Hyperlipidemia - on Statin 6. DM type 2 - managed by PCP 7. Severe PVD with s/p stent in bilat subclavian in 07/2017 - 8. Stenosis in Rt Carotid arteries with Hx of Lt CEA in 2015 - Cont to monitor 9. Gout - managed by PCP SALLY reviewed * Echo on 06/28/2018 showed EF 15-20%, distolic dysfunction, mod dilated la, mild MR, mod AR, mod-severe with RAMON 0.84cm2, severe TR, mild-mod RI. She is feeling better today. I agree with the A/P by the [employer]IL MILL WORKER. She still has leg pain which she attributes to her gout. She has severe vascular disease and severe CMY. her is severe but not critical. It could be possible to consider a TAVR but it would be difficult due to her vascular disease and decrease EF. resume diuretics,betablockers Review of Systems - Review of Systems Constitutional: reports: no symptoms reported EENTM: reports: no symptoms reported Respiratory: reports: no symptoms reported Cardiac (ROS): reports: no symptoms reported ABD/GI: reports: no symptoms reported : reports: no symptoms reported Musculoskeletal: reports: see HPI Skin: reports: no symptoms reported
[2018-06-29] MEDS: Carvedilol 3.125 MG TAB PO SCH (16:10)
--- NOTE | 2018-06-29 17:08 | PDOC.PN ---
- Subjective Encounter Start Date: 06/29/18 Encounter Start Time: 17:00 Subjective: f/u for NSTEMI, CHF on dual antiplatelet therapy. States dsypnea -: improved but R foot pain x 2-3 months with hx of gout on Allopurinol. -: Intermittent LE edema. - Objective Resuscitation Status - Order Detail: 06/28/18 07:52 Resuscitation Status Routine Resuscitation Status: FULL: Full Resuscitation MAR Reviewed: Yes Vital Signs & Weight: Vital Signs (12 hours) Temp Pulse Resp BP Pulse Ox 06/29/18 16:07 98.5 F 77 18 110/61 100 06/29/18 12:13 97.4 F L 79 20 121/59 L 98 06/29/18 08:00 100 06/29/18 07:45 97.9 F 80 22 H 120/60 100 Weight Admit Weight 204 lb 3.2 oz Weight 204 lb 6.4 oz I&O: 06/28/18 06/29/18 06/30/18 06:59 06:59 06:59 Intake Total 930 Output Total 650 Balance 280 Result Diagrams: 06/29/18 05:09 06/29/18 05:09 Additional Labs: Accuchecks 06/29/18 06/29/18 06/29/18 16:25 12:00 08:50 POC Glucose 138 H 194 H 194 H 06/29/18 06/29/18 06/28/18 04:30 00:19 20:25 POC Glucose 198 H 162 H 211 H 06/28/18 06/28/18 16:49 14:28 POC Glucose 153 H 111 H Microbiology 06/28/18 01:45 Nasal swab Influenza Types A,B Direct EIA - Final Laboratory Tests 07/25/17 07/26/17 06/28/18 09:54 04:41 01:29 WBC Plt Count Troponin I 2.190 H* B-Natriuretic Peptide 2942.1 H 2693.2 H 06/28/18 06/28/18 06/28/18 01:29 01:29 04:44 WBC 11.5 H Plt Count 67 L Troponin I 2.117 H* B-Natriuretic Peptide 3760.0 H 06/28/18 06/28/18 06/28/18 07:36 07:36 20:08 WBC 11.4 H Plt Count 154 Troponin I 2.114 H* 1.398 H* B-Natriuretic Peptide Radiology Reviewed by me: Yes (2D echo - EF 15-20%, mod-sev , sev TR) EKG Reviewed by me: Yes (Tele - SR) Phys Exam - Physical Examination Constitutional: NAD HEENT: PERRLA, sclera anicteric, oral pharynx no lesions Neck: no nodes, no JVD, supple, full ROM diminished in bases, basilar crackles S1, S2, II/ SAMMY Cardiovascular: RRR, no rub, gallop Gastrointestinal: soft, non-tender, no distention, positive bowel sounds R>LLE edema, + TTP of medial R metatarsal, medial malleolus Musculoskeletal: pulses present, edema present Neurological: normal sensation, moves all 4 limbs Psychiatric: A&O x 3 Skin: normal turgor, cap refill <2 seconds Dx/Plan (1) NSTEMI (non-ST elevated myocardial infarction) Code(s): I21.4 - NON-ST ELEVATION (NSTEMI) MYOCARDIAL INFARCTION Status: Acute Comment: Continue dual anti-platelet therapy, not a surgical candidate currently, Lipitor 40mg HS (2) Acute combined systolic and diastolic CHF, NYHA class 3 Code(s): I50.41 - ACUTE COMBINED SYSTOLIC AND DIASTOLIC (CONGESTIVE) HRT FAIL Status: Acute Comment: Lasix 40mg IV BID, EF 15-20% improved slightly from prior Echo in 2018, (3) Peripheral vascular disease Code(s): I73.9 - PERIPHERAL VASCULAR DISEASE, UNSPECIFIED Status: Acute Comment: Dual antiplatelet therapy, consider ?Xarelto (4) Ischemic cardiomyopathy Code(s): I25.5 - ISCHEMIC CARDIOMYOPATHY Status: Chronic Comment: EF 15-20% , AICD in place (5) Gouty arthropathy Code(s): M10.9 - GOUT, UNSPECIFIED Status: Chronic Comment: Check Uric acid level, start Prednisone and Allopurinol (6) Edema of right lower extremity Code(s): R60.0 - LOCALIZED EDEMA Status: Chronic Comment: check RLE doppler to r/o DVT, check x-ray of R foot to r/o fx - Plan PT/OT, licensed clinical social worker Continue Lasix 40mg IV BID -: Continue dual antiplatelet therapy -: RLE doppler/ X-ray R foot -: Start Prednisone 40mg daily -: AM lab: BMP, CBC, Uric acid level * .
[2018-06-29] MEDS ORDERED: predniSONE 20 MG TAB PO SCH (17:15)
[2018-06-29] MEDS ORDERED: Furosemide 40 MG/4 ML VIAL SLOW IVP SCH (17:15)
--- NOTE | 2018-06-29 18:08 | RAD ---
RADIOGRAPH RIGHT FOOT THREE VIEWS: 06/29/18 HISTORY: 73-year-old female with right foot pain and edema. FINDINGS: No hallux valgus. Tiny osteophytes at first MTP joint without joint space narrowing. The rest of the joints are unremarkable. Soft tissue swelling of the dorsum of the forefoot. No periostitis, permeati ve lesion, osteolytic lesion, osteoblastic lesion, or fracture. IMPRESSION: 1. Soft tissue edema of the dorsum of the forefoot. 2. Mild osteoarthrosis of first metatarsophalangeal joint. 3. Otherwise negative. POS: [facility]
[2018-06-29] MEDS: Lisinopril 2.5 MG TAB PO SCH (21:07)
[2018-06-29] MEDS: Atorvastatin Calcium 40 MG TAB PO SCH (21:08)
[2018-06-30] MEDS: Furosemide 40 MG/4 ML VIAL SLOW IVP SCH ×2 (06:26→14:21)
[2018-06-30 06:48] LABS: Anion Gap 16 mmol/L (10-20); BUN (Urea Nitrogen) 18 mg/dL (9.8-20.1); Calc. Creatinine Clearance 90 mL/min (70-130); Calcium 8.7 mg/dL (7.8-10.44); Carbon Dioxide 23 mmol/L (23-31); Chloride 99 mmol/L (98-107); Estimated GFR-MDRD 82; Glucose 181 mg/dL (83-110); Potassium 4.3 mmol/L (3.5-5.1); Sodium 134 mmol/L (136-145); Uric Acid 5.2 mg/dL (2.6-6.0)
--- NOTE | 2018-06-30 08:07 | ULT ---
VENOUS DUPLEX SONOGRAM RIGHT LOWER EXTREMITY: Date: 06/30/18 HISTORY: Right leg pain and edema. FINDINGS: Right common femoral vein and greater saphenous junction were evaluated, along with the femoral, rhea p femoral, popliteal, and posterior tibial veins. There is good color and spectral Doppler flow, comp ression, and augmentation. IMPRESSION: No sonographic evidence of deep venous thrombosis within the right lower extremity. POS: MANNY
[2018-06-30 08:31] LABS: Hemoglobin 11.2 g/dL (12.0-16.0); Mean Corpuscular HGB CONC 31.5 g/dL (32.0-36.0); Mean Corpuscular Hemoglobin 30.3 pg (27.0-31.0); Mean Corpuscular Volume 96.1 fL (78.0-98.0); Red Blood Cell (RBC) Count 3.71 mill/uL (4.20-5.40); White Blood Cell (WBC) Count 8.3 thou/uL (4.8-10.8)
[2018-06-30] MEDS ORDERED: Non-Formulary Item 1 EACH (Levemir Flexpen [Levemir Flexpen] 45 UNIT) SC SCH (09:00)
[2018-06-30] MEDS: predniSONE 20 MG TAB PO SCH (09:29)
[2018-06-30] MEDS: Carvedilol 3.125 MG TAB PO SCH ×2 (09:29→16:48)
[2018-06-30] MEDS: Lisinopril 2.5 MG TAB PO SCH ×2 (09:30→21:53)
[2018-06-30] MEDS: Famotidine/PF 20 mg/2ml Vial SLOW IVP SCH (09:30)
[2018-06-30] MEDS: Allopurinol 300 MG TAB PO SCH (09:30)
[2018-06-30] MEDS: Clopidogrel Bisulfate 75 MG TAB PO SCH (09:30)
[2018-06-30] MEDS: Aspirin 325 mg Enteric Coated Tablet PO SCH (09:30)
[2018-06-30] MEDS: Potassium Chloride 20 MEQ TAB PO SCH (09:31)
[2018-06-30 09:35] LABS: Acanthocytes MODERATE= 6-15 cells (100X) (None Seen); Band 1 % (5-11); Lymphocytes 3 % (21-51); MDiff Complete? YES; Mean Platelet Volume 8.2 fL (7.4-10.4); Monocytes 2 % (0-10); Neutrophil 93 % (42-75); Ovalocytes SLIGHT = 2-5 cells (100X) (0-1/hpf); Platelet Clumps MARKED; Platelet Morphology Comment PLT clumps seen-ADEQ; Polychromasia SLIGHT = 2-3 cells (100X) (0-2/hpf); RBC Distribution Width 14.8 % (11.5-14.5); Schistocytes SLIGHT = 2-5 cells (100X) (0-1/hpf)
[2018-06-30] MEDS: Insulin Glargine 45 UNITS in Pre-Filled Syringe 1 EACH SC SCH (09:38)
[2018-06-30] MEDS: HumaLOG 300 UNITS/3 ML VIAL SC PRN ×3 (09:39→22:01)
--- NOTE | 2018-06-30 13:34 | PDOC.CTH ---
Cardiology Progress Note - Subjective The pt seen and examined. No overnight events. No cardiac complaints. Her gout is more stable today with Prednisone. - Objective Vital Signs Temp Pulse Resp BP BP Pulse Ox 06/30/18 09:30 71 135/61 06/30/18 07:50 98.2 F 71 15 139/64 100 06/30/18 04:00 98.1 F 78 18 131/63 96 Admit Weight 204 lb 3.2 oz Weight 204 lb 06/29/18 06/30/18 07/01/18 06:59 06:59 06:59 Intake Total 930 1500 Output Total 650 1050 Balance 280 450 - Physical Examination General/Neuro: alert & oriented x3 Neck: no JVD present Lungs: CTA Heart: RRR Abdomen: soft Extremities: other: (2+ pitting BLE edema) - Telemetry Telemetry Rhythm: SR - Labs Result Diagrams: 06/30/18 05:09 06/30/18 05:09 Troponin/CKMB CK-MB (CK-2) 2.8 ng/mL (0-6.6) 06/28/18 16:15 Troponin I 1.398 ng/mL (< 0.028) H* 06/28/18 20:08 - Assessment/Plan 1. NSTEMI - no CP or discomfort since yesterday. Not good candidate for further cardiac procedure for now 2/2 severe vascular disease and severe CMY. 2. Ischemic CMY with AICD placement in 2018 - EF 15-20% on 06/28/2018. On Lasix IV 40mg BID, bblocker, FADIA. 3. CAD with hx of CABG in 2004 and cath in 2016 with severe subclavian stenosis prior to take of HACKETT; On Plavix, Coreg 3.125mg BID, ASA, and statin. 10. Severe - cont. to monitor (It could be possible to consider a TAVR but it would be difficult due to her vascular disease and decrease EF.) MAR reviewed * Echo on 06/28/2018 showed EF 15-20%, distolic dysfunction, mod dilated la, mild MR, mod AR, mod-severe with RAMON 0.84cm2, severe TR, mild-mod NM. She is feeling better today. I examined the pt. I agree with the A/P by the HEALTH CARE COORDINATOR. She diuresed some and the lower extremity edema has improved.Her complaint today is still the pain in her right lower extremity and foot due to gout. Her cardiac status is relatively stable. Continue present management. Poor candidate for further coronary intervention. Review of Systems - Review of Systems Constitutional: reports: no symptoms reported EENTM: reports: no symptoms reported Respiratory: reports: no symptoms reported Cardiac (ROS): reports: no symptoms reported ABD/GI: reports: no symptoms reported : reports: no symptoms reported Musculoskeletal: reports: see HPI
--- NOTE | 2018-06-30 14:40 | PDOC.PN ---
- Subjective Encounter Start Date: 06/30/18 Encounter Start Time: 14:35 Subjective: f/u for NSTEMI on med mgmt and CHF on Lasix. Overall feels better -: today. Still with R foot pain. - Objective Resuscitation Status - Order Detail: 06/28/18 07:52 Resuscitation Status Routine Resuscitation Status: FULL: Full Resuscitation MAR Reviewed: Yes Vital Signs & Weight: Vital Signs (12 hours) Temp Pulse Resp BP BP Pulse Ox 06/30/18 09:30 71 135/61 06/30/18 07:50 98.2 F 71 15 139/64 100 06/30/18 04:00 98.1 F 78 18 131/63 96 Weight Admit Weight 204 lb 3.2 oz Weight 204 lb I&O: 06/29/18 06/30/18 07/01/18 06:59 06:59 06:59 Intake Total 930 1500 Output Total 650 1050 Balance 280 450 Result Diagrams: 06/30/18 05:09 06/30/18 05:09 Additional Labs: Accuchecks 06/30/18 06/30/18 06/30/18 11:00 09:26 04:07 POC Glucose 247 H 234 H 197 H 06/30/18 06/29/18 06/29/18 01:09 20:30 16:25 POC Glucose 187 H 175 H 138 H Microbiology 06/28/18 01:45 Nasal swab Influenza Types A,B Direct EIA - Final Laboratory Tests 07/25/17 07/26/17 06/28/18 09:54 04:41 01:29 WBC Plt Count Uric Acid Troponin I 2.190 H* B-Natriuretic Peptide 2942.1 H 2693.2 H 06/28/18 06/28/18 06/28/18 01:29 01:29 04:44 WBC 11.5 H Plt Count 67 L Uric Acid Troponin I 2.117 H* B-Natriuretic Peptide 3760.0 H 06/28/18 06/28/18 06/28/18 07:36 07:36 20:08 WBC 11.4 H Plt Count 154 Uric Acid Troponin I 2.114 H* 1.398 H* B-Natriuretic Peptide 06/30/18 05:09 WBC Plt Count Uric Acid 5.2 Troponin I B-Natriuretic Peptide Radiology Reviewed by me: Yes (RLE dopp - negative, R foot x-ray - neg) EKG Reviewed by me: Yes (Tele - SR) Phys Exam - Physical Examination Constitutional: NAD HEENT: PERRLA, sclera anicteric, oral pharynx no lesions Neck: no nodes, no JVD, supple, full ROM occasional basilar crackle Respiratory: no wheezing, no rhonchi S1, S2 Cardiovascular: RRR, no rub, gallop Gastrointestinal: soft, non-tender, no distention, positive bowel sounds mild erythema of RLE to dorsum of foot Musculoskeletal: pulses present, edema present Neurological: moves all 4 limbs Psychiatric: A&O x 3 Skin: normal turgor, cap refill <2 seconds Dx/Plan (1) NSTEMI (non-ST elevated myocardial infarction) Code(s): I21.4 - NON-ST ELEVATION (NSTEMI) MYOCARDIAL INFARCTION Status: Acute Comment: Continue dual anti-platelet therapy, not a surgical candidate currently, Lipitor 40mg HS (2) Acute combined systolic and diastolic CHF, NYHA class 3 Code(s): I50.41 - ACUTE COMBINED SYSTOLIC AND DIASTOLIC (CONGESTIVE) HRT FAIL Status: Acute Comment: Lasix 40mg IV BID, EF 15-20% improved slightly from prior Echo in 2018, (3) Peripheral vascular disease Code(s): I73.9 - PERIPHERAL VASCULAR DISEASE, UNSPECIFIED Status: Acute Comment: Dual antiplatelet therapy, consider ?Xarelto (4) Ischemic cardiomyopathy Code(s): I25.5 - ISCHEMIC CARDIOMYOPATHY Status: Chronic Comment: EF 15-20% , AICD in place (5) Gouty arthropathy Code(s): M10.9 - GOUT, UNSPECIFIED Status: Chronic Comment: Check Uric acid level, start Prednisone and Allopurinol (6) Edema of right lower extremity Code(s): R60.0 - LOCALIZED EDEMA Status: Chronic Comment: RLE dopp and X- rays negative, continue fluid mgmt with IV Lasix - 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
[2018-06-30] MEDS: Atorvastatin Calcium 40 MG TAB PO SCH (21:53)
[2018-06-30] MEDS: Famotidine 20 MG TAB PO SCH (21:53)
[2018-07-01] MEDS: Benzonatate 100 MG CAP PO PRN (00:07)
[2018-07-01] MEDS: HumaLOG 300 UNITS/3 ML VIAL SC PRN ×6 (00:12→21:08)
[2018-07-01] MEDS: Furosemide 40 MG/4 ML VIAL SLOW IVP SCH (06:27)
[2018-07-01 06:34] LABS: Anion Gap 14 mmol/L (10-20); BUN (Urea Nitrogen) 26 mg/dL (9.8-20.1); Calc. Creatinine Clearance 72 mL/min (70-130); Calcium 8.9 mg/dL (7.8-10.44); Carbon Dioxide 24 mmol/L (23-31); Chloride 98 mmol/L (98-107); Estimated GFR-MDRD 64; Glucose 245 mg/dL (83-110); Potassium 3.9 mmol/L (3.5-5.1); Sodium 132 mmol/L (136-145)
[2018-07-01] MEDS: Aspirin 325 mg Enteric Coated Tablet PO SCH (09:33)
[2018-07-01] MEDS: predniSONE 20 MG TAB PO SCH (09:33)
[2018-07-01] MEDS: Allopurinol 300 MG TAB PO SCH (09:33)
[2018-07-01] MEDS: Lisinopril 2.5 MG TAB PO SCH (09:33)
[2018-07-01] MEDS: Potassium Chloride 20 MEQ TAB PO SCH (09:33)
[2018-07-01] MEDS: Insulin Glargine 45 UNITS in Pre-Filled Syringe 1 EACH SC SCH (09:34)
[2018-07-01] MEDS: Famotidine 20 MG TAB PO SCH ×2 (09:36→21:04)
[2018-07-01] MEDS: Carvedilol 3.125 MG TAB PO SCH ×2 (09:36→18:07)
[2018-07-01] MEDS: Clopidogrel Bisulfate 75 MG TAB PO SCH (09:36)
--- NOTE | 2018-07-01 11:48 | EKG ---
Test Reason : Blood Pressure : / mmHG Vent. Rate : 095 BPM Atrial Rate : 095 BPM P-R Int : 140 ms QRS Dur : 088 ms QT Int : 348 ms P-R-T Axes : 081 055 220 degrees QTc Int : 437 ms Normal sinus rhythm T wave inversions in inferior and lateral leads seen on old EKG from 07/25/2017 Confirmed by LITZY MONTES DE OCA ([id number]), dictionary editor ANAHI HU ([id number]) on 07/01/2018 11:48:14 AM Referred By: Confirmed By:LITZY MONTES DE OCA
--- NOTE | 2018-07-01 11:49 | EKG ---
Test Reason : CP-REPEAT Blood Pressure : / mmHG Vent. Rate : 106 BPM Atrial Rate : 106 BPM P-R Int : 146 ms QRS Dur : 088 ms QT Int : 324 ms P-R-T Axes : 077 057 211 degrees QTc Int : 430 ms Sinus tachycardia Left ventricular hypertrophy with repolarization abnormality Cannot rule out Inferior infarct , age undetermined Abnormal ECG No acute changes Confirmed by LITZY MONTES DE OCA ([id number]), editorial manager ANAHI HU ([id number]) on 07/01/2018 11:48:38 AM Referred By: Confirmed By:LITZY MONTES DE OCA
--- NOTE | 2018-07-01 12:33 | PDOC.PN ---
- Subjective Encounter Start Date: 07/01/18 Encounter Start Time: 12:30 Subjective: f/u for NSTEMI and CHF on current Lasix, ASA/Plavix. Feels ok overall -: but has dry cough. No fever or chills. - Objective Resuscitation Status - Order Detail: 06/28/18 07:52 Resuscitation Status Routine Resuscitation Status: FULL: Full Resuscitation MAR Reviewed: Yes Vital Signs & Weight: Vital Signs (12 hours) Temp Pulse Resp BP BP Pulse Ox 07/01/18 09:33 74 137/68 07/01/18 07:13 97.8 F 69 17 142/56 H 96 07/01/18 04:00 98.3 F 69 18 126/59 L 97 Weight Admit Weight 204 lb 3.2 oz Weight 203 lb 11.2 oz I&O: 06/30/18 07/01/18 07/02/18 06:59 06:59 06:59 Intake Total 1500 1434 Output Total 1050 1400 Balance 450 34 Result Diagrams: 06/30/18 05:09 07/01/18 05:02 Additional Labs: Accuchecks 07/01/18 07/01/18 07/01/18 08:32 05:20 00:10 POC Glucose 183 H 243 H 316 H 06/30/18 06/30/18 22:01 16:28 POC Glucose 373 H 302 H Microbiology 06/28/18 01:45 Nasal swab Influenza Types A,B Direct EIA - Final Laboratory Tests 07/25/17 07/26/17 06/28/18 09:54 04:41 01:29 WBC Plt Count Uric Acid Troponin I 2.190 H* B-Natriuretic Peptide 2942.1 H 2693.2 H 06/28/18 06/28/18 06/28/18 01:29 01:29 04:44 WBC 11.5 H Plt Count 67 L Uric Acid Troponin I 2.117 H* B-Natriuretic Peptide 3760.0 H 06/28/18 06/28/18 06/28/18 07:36 07:36 20:08 WBC 11.4 H Plt Count 154 Uric Acid Troponin I 2.114 H* 1.398 H* B-Natriuretic Peptide 06/30/18 05:09 WBC Plt Count Uric Acid 5.2 Troponin I B-Natriuretic Peptide Radiology Reviewed by me: Yes (RLE sono - neg DVT) EKG Reviewed by me: Yes (Tele - SR) Phys Exam - Physical Examination Constitutional: NAD HEENT: PERRLA, sclera anicteric, oral pharynx no lesions Neck: no nodes, no JVD, supple, full ROM Respiratory: no wheezing, no rales, no rhonchi S1, S2 Cardiovascular: RRR, no significant murmur, no rub, gallop Gastrointestinal: soft, non-tender, no distention, positive bowel sounds R>LLE edema improved Musculoskeletal: pulses present, edema present Neurological: normal sensation, moves all 4 limbs Psychiatric: A&O x 3 Skin: normal turgor, cap refill <2 seconds Dx/Plan (1) NSTEMI (non-ST elevated myocardial infarction) Code(s): I21.4 - NON-ST ELEVATION (NSTEMI) MYOCARDIAL INFARCTION Status: Acute Comment: Continue dual anti-platelet therapy, not a surgical candidate currently, Lipitor 40mg HS (2) Acute combined systolic and diastolic CHF, NYHA class 3 Code(s): I50.41 - ACUTE COMBINED SYSTOLIC AND DIASTOLIC (CONGESTIVE) HRT FAIL Status: Acute Comment: Lasix 40mg po BID, EF 15-20% improved slightly from prior Echo in 2018 (3) Peripheral vascular disease Code(s): I73.9 - PERIPHERAL VASCULAR DISEASE, UNSPECIFIED Status: Acute Comment: Dual antiplatelet therapy, consider ?Xarelto (4) Ischemic cardiomyopathy Code(s): I25.5 - ISCHEMIC CARDIOMYOPATHY Status: Chronic Comment: EF 15-20% , AICD in place (5) Gouty arthropathy Code(s): M10.9 - GOUT, UNSPECIFIED Status: Chronic Comment: Check Uric acid level, continue Prednisone and Allopurinol (6) Edema of right lower extremity Code(s): R60.0 - LOCALIZED EDEMA Status: Chronic Comment: RLE dopp and X- rays negative, continue fluid mgmt with Lasix - 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
[2018-07-01] MEDS ORDERED: guaiFENesin/DM ER PO SCH (13:00)
[2018-07-01] MEDS: Furosemide 40 MG TAB PO SCH (14:54)
[2018-07-01] MEDS: Lisinopril 5 MG TAB PO SCH (21:03)
[2018-07-01] MEDS: guaiFENesin/DM ER PO SCH (21:04)
[2018-07-01] MEDS: Atorvastatin Calcium 40 MG TAB PO SCH (21:04)
[2018-07-02] MEDS: Benzonatate 100 MG CAP PO PRN ×3 (00:04→21:22)
[2018-07-02] MEDS: HumaLOG 300 UNITS/3 ML VIAL SC PRN ×2 (00:04→21:18)
[2018-07-02] MEDS: Cepastat Lozenges 1 LOZ PO PRN ×2 (05:43→10:35)
[2018-07-02] MEDS: Potassium Chloride 20 MEQ TAB PO SCH (09:20)
[2018-07-02] MEDS: Furosemide 40 MG TAB PO SCH ×2 (09:20→15:03)
[2018-07-02] MEDS: Allopurinol 300 MG TAB PO SCH (09:20)
[2018-07-02] MEDS: Lisinopril 5 MG TAB PO SCH ×2 (09:21→21:22)
[2018-07-02] MEDS: Famotidine 20 MG TAB PO SCH ×2 (09:21→21:22)
[2018-07-02] MEDS: Carvedilol 3.125 MG TAB PO SCH ×2 (09:21→17:22)
[2018-07-02] MEDS: predniSONE 20 MG TAB PO SCH (09:21)
[2018-07-02] MEDS: Clopidogrel Bisulfate 75 MG TAB PO SCH (09:21)
[2018-07-02] MEDS: Aspirin 325 mg Enteric Coated Tablet PO SCH (09:21)
[2018-07-02] MEDS: guaiFENesin/DM ER PO SCH ×2 (09:21→21:22)
[2018-07-02] MEDS: Insulin Glargine 45 UNITS in Pre-Filled Syringe 1 EACH SC SCH (09:22)
--- NOTE | 2018-07-02 10:58 | PDOC.PN ---
- Subjective Encounter Start Date: 07/02/18 Encounter Start Time: 10:45 Subjective: f/u for NSTEMI/CHF on medical mgmt. Feels ok overall but developed -: cold sx in last 24h. R foot pain minimal and starting to ambulate. - Objective Resuscitation Status - Order Detail: 06/28/18 07:52 Resuscitation Status Routine Resuscitation Status: FULL: Full Resuscitation MAR Reviewed: Yes Vital Signs & Weight: Vital Signs (12 hours) Temp Pulse Resp BP Pulse Ox 07/02/18 09:21 70 07/02/18 08:00 98.6 F 71 18 116/58 L 96 07/02/18 04:58 98.1 F 70 18 118/68 95 Weight Admit Weight 204 lb 3.2 oz Weight 204 lb I&O: 07/01/18 07/02/18 07/03/18 06:59 06:59 06:59 Intake Total 1434 1150 Output Total 1400 1625 Balance 34 -475 Result Diagrams: 06/30/18 05:09 07/01/18 05:02 Additional Labs: Accuchecks 07/02/18 07/02/18 07/02/18 09:19 05:03 00:02 POC Glucose 121 H 151 H 215 H 07/01/18 07/01/18 07/01/18 20:26 16:52 12:46 POC Glucose 317 H 246 H 278 H Microbiology 06/28/18 01:45 Nasal swab Influenza Types A,B Direct EIA - Final Laboratory Tests 07/25/17 07/26/17 06/28/18 09:54 04:41 01:29 WBC Plt Count Uric Acid Troponin I 2.190 H* B-Natriuretic Peptide 2942.1 H 2693.2 H 06/28/18 06/28/18 06/28/18 01:29 01:29 04:44 WBC 11.5 H Plt Count 67 L Uric Acid Troponin I 2.117 H* B-Natriuretic Peptide 3760.0 H 06/28/18 06/28/18 06/28/18 07:36 07:36 20:08 WBC 11.4 H Plt Count 154 Uric Acid Troponin I 2.114 H* 1.398 H* B-Natriuretic Peptide 06/30/18 05:09 WBC Plt Count Uric Acid 5.2 Troponin I B-Natriuretic Peptide EKG Reviewed by me: Yes (Tele - SR) Phys Exam - Physical Examination Constitutional: NAD HEENT: PERRLA, sclera anicteric, oral pharynx no lesions Neck: no nodes, no JVD, supple, full ROM few exp wheezes, basilar coarse sounds S1, S2 Cardiovascular: RRR, no significant murmur, no rub, gallop Gastrointestinal: soft, non-tender, no distention, positive bowel sounds mild LE edema Musculoskeletal: pulses present Neurological: normal sensation, moves all 4 limbs Psychiatric: A&O x 3 Skin: normal turgor, cap refill <2 seconds Dx/Plan (1) NSTEMI (non-ST elevated myocardial infarction) Code(s): I21.4 - NON-ST ELEVATION (NSTEMI) MYOCARDIAL INFARCTION Status: Acute Comment: Continue dual anti-platelet therapy, not a surgical candidate currently, Lipitor 40mg HS, Coreg 3.125mg BID (2) Acute combined systolic and diastolic CHF, NYHA class 3 Code(s): I50.41 - ACUTE COMBINED SYSTOLIC AND DIASTOLIC (CONGESTIVE) HRT FAIL Status: Acute Comment: Lasix 40mg po BID, EF 15-20% improved slightly from prior Echo in 2018, ? Entresto (3) Peripheral vascular disease Code(s): I73.9 - PERIPHERAL VASCULAR DISEASE, UNSPECIFIED Status: Acute Comment: Dual antiplatelet therapy, consider ?Xarelto (4) Ischemic cardiomyopathy Code(s): I25.5 - ISCHEMIC CARDIOMYOPATHY Status: Chronic Comment: EF 15-20% , AICD in place (5) Gouty arthropathy Code(s): M10.9 - GOUT, UNSPECIFIED Status: Chronic Comment: Check Uric acid level, continue Prednisone and Allopurinol, improving (6) Edema of right lower extremity Code(s): R60.0 - LOCALIZED EDEMA Status: Chronic Comment: RLE dopp and X- rays negative, continue fluid mgmt with Lasix, improved - Plan 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
[2018-07-02] MEDS: Atorvastatin Calcium 40 MG TAB PO SCH (21:22)
[2018-07-03] MEDS: HumaLOG 300 UNITS/3 ML VIAL SC PRN ×2 (00:37→16:32)
[2018-07-03 06:06] LABS: Anion Gap 13 mmol/L (10-20); BUN (Urea Nitrogen) 18 mg/dL (9.8-20.1); Calc. Creatinine Clearance 96 mL/min (70-130); Calcium 8.4 mg/dL (7.8-10.44); Carbon Dioxide 27 mmol/L (23-31); Chloride 98 mmol/L (98-107); Estimated GFR-MDRD 89; Glucose 171 mg/dL (83-110); Potassium 3.6 mmol/L (3.5-5.1); Sodium 134 mmol/L (136-145)
--- NOTE | 2018-07-03 08:06 | PDOC.PN ---
- Subjective Encounter Start Date: 07/03/18 Encounter Start Time: 09:00 Subjective: Patient doing a bit better. Ambulated to the bathroom. No SOB currently. No -: chest pain. - Objective Resuscitation Status - Order Detail: 06/28/18 07:52 Resuscitation Status Routine Resuscitation Status: FULL: Full Resuscitation MAR Reviewed: Yes Vital Signs & Weight: Vital Signs (12 hours) Temp Pulse Resp BP BP BP Pulse Ox 07/03/18 04:32 98.1 F 64 16 117/57 L 94 L 07/02/18 21:22 67 123/58 L 97 07/02/18 21:13 98.5 F 67 18 123/58 L 97 Weight Admit Weight 204 lb 3.2 oz Weight 204 lb 3.2 oz I&O: 07/02/18 07/03/18 07/04/18 06:59 06:59 06:59 Intake Total 1150 960 Output Total 1625 1100 Balance -475 -140 Result Diagrams: 06/30/18 05:09 07/03/18 04:48 Additional Labs: Accuchecks 07/03/18 07/02/18 07/02/18 00:35 20:06 16:14 POC Glucose 251 H 194 H 138 H 07/02/18 07/02/18 14:44 09:19 POC Glucose 122 H 121 H Phys Exam - Physical Examination Constitutional: NAD HEENT: moist MMs Respiratory: no wheezing, no rales, no rhonchi Cardiovascular: RRR, no significant murmur Gastrointestinal: soft, positive bowel sounds Musculoskeletal: no edema Neurological: non-focal, moves all 4 limbs Psychiatric: normal affect, A&O x 3 Dx/Plan (1) NSTEMI (non-ST elevated myocardial infarction) Code(s): I21.4 - NON-ST ELEVATION (NSTEMI) MYOCARDIAL INFARCTION Status: Acute Comment: Continue dual anti-platelet therapy, not a surgical candidate currently, Lipitor 40mg HS, Coreg 3.125mg BID (2) Acute combined systolic and diastolic CHF, NYHA class 3 Code(s): I50.41 - ACUTE COMBINED SYSTOLIC AND DIASTOLIC (CONGESTIVE) HRT FAIL Status: Acute Comment: Lasix 40mg po BID, EF 15-20% improved slightly from prior Echo in 2018, ? Entresto (3) Aortic stenosis, severe Code(s): I35.0 - NONRHEUMATIC AORTIC (VALVE) STENOSIS Status: Chronic Comment: Severe but not critical per cardiology (4) Ischemic cardiomyopathy Code(s): I25.5 - ISCHEMIC CARDIOMYOPATHY Status: Chronic Comment: EF 15-20% , AICD in place (5) CAD (coronary artery disease) Code(s): I25.10 - ATHSCL HEART DISEASE OF [place] CORONARY ARTERY W/O ANG PCTRS Status: Chronic (6) Peripheral vascular disease Code(s): I73.9 - PERIPHERAL VASCULAR DISEASE, UNSPECIFIED Status: Acute Comment: Dual antiplatelet therapy, consider ?Xarelto (7) Edema of right lower extremity Code(s): R60.0 - LOCALIZED EDEMA Status: Chronic Comment: RLE dopp and X- rays negative, continue fluid mgmt with Lasix, improved (8) Gouty arthropathy Code(s): M10.9 - GOUT, UNSPECIFIED Status: Chronic Comment: Uric acid 5.2, continue Prednisone and Allopurinol, improving - Plan cont current plan of care, PT/OT, DVT proph w/SCDs PT eval now that can walk without significant pain in foot. -: Evaluate for discharge to home vs. rehab once cleared by cardiology. * . - Discharge Day Encounter end time: 09:10 Pulmonology Consult: Meds - Medications MAR Reviewed: Yes Medications: Current Medications Allopurinol (Zyloprim) 300 mg PO DAILY [facility] Last Admin: 07/02/18 09:20 Dose: 300 mg Aspirin (Ecotrin) 325 mg PO DAILY [facility] Last Admin: 07/02/18 09:21 Dose: 325 mg Atorvastatin Calcium (Lipitor) 40 mg PO HS [facility] Last Admin: 07/02/18 21:22 Dose: 40 mg Benzonatate (Tessalon) 200 mg PO Q8H PRN PRN Reason: Cough Last Admin: 07/02/18 21:22 Dose: 200 mg Carvedilol (Coreg) 3.125 mg PO BID-WM [facility] Last Admin: 07/02/18 17:22 Dose: 3.125 mg Clopidogrel Bisulfate (Plavix) 75 mg PO DAILY [facility] Last Admin: 07/02/18 09:21 Dose: 75 mg Dextrose/Water (Dextrose 50%) 25 gm SLOW IVP PRN PRN PRN Reason: Hypoglycemia Last Admin: 06/28/18 12:55 Dose: 25 gm Famotidine (Pepcid) 20 mg PO Q12HR [facility] Last Admin: 07/02/18 21:22 Dose: 20 mg Furosemide (Lasix) 40 mg PO 0900,1400 [facility] Last Admin: 07/02/18 15:03 Dose: 40 mg Glucagon (Glucagon) 1 mg IM PRN PRN PRN Reason: Hypoglycemia Guaifenesin/Dextromethorphan (Mucinex Dm) 1 tab PO Q12HR [facility] Last Admin: 07/02/18 21:22 Dose: 1 tab Dextrose/Water (D5w) 1,000 mls @ 0 mls/hr IV .Q0M PRN PRN Reason: Hypoglycemia Insulin Glargine 45 units/ (Miscellaneous Medication) 0.45 mls @ 0 mls/hr [facility] Last Admin: 07/02/18 09:22 Dose: 0.45 mls Insulin Human Lispro (Humalog) 0 units SC .BEDTIME SLIDING SC PRN; Protocol PRN Reason: BEDTIME SLIDING SCALE Last Admin: 07/03/18 00:37 Dose: 3 unit Insulin Human Lispro (Humalog) 0 units SC .MODERATE SLIDING SC PRN; Protocol PRN Reason: MODERATE SLIDING SCALE Last Admin: 07/02/18 21:18 Dose: 2 unit Lisinopril (Zestril) 5 mg PO BID [facility] Last Admin: 07/02/18 21:22 Dose: 5 mg Potassium Chloride (K-Dur) 20 meq PO DAILY [facility] Last Admin: 07/02/18 09:20 Dose: 20 meq Prednisone (Prednisone) 40 mg PO QA-[facility] Last Admin: 07/02/18 09:21 Dose: 40 mg Sodium Chloride (Flush - Normal Saline) 10 ml IVF Q12HR [facility] Last Admin: 07/02/18 21:23 Dose: 10 ml Sodium Chloride (Flush - Normal Saline) 10 ml IVF PRN PRN PRN Reason: Saline Flush Last Admin: 07/01/18 06:27 Dose: 10 ml Throat Lozenges (Cepastat Lozenges) 1 [place] PO Q2H PRN PRN Reason: Sore Throat Last Admin: 07/02/18 10:35 Dose: 1 austin - Allergies Allergies/Adverse Reactions: Allergies Allergy/AdvReac Type Severity Reaction Status Date / Time Penicillins Allergy Rash Verified 07/25/17 18:07
[2018-07-03] MEDS: Carvedilol 3.125 MG TAB PO SCH ×2 (08:48→16:31)
[2018-07-03] MEDS: predniSONE 20 MG TAB PO SCH (08:48)
[2018-07-03] MEDS: Allopurinol 300 MG TAB PO SCH (08:48)
[2018-07-03] MEDS: Furosemide 40 MG TAB PO SCH ×2 (08:49→14:33)
[2018-07-03] MEDS: Insulin Glargine 45 UNITS in Pre-Filled Syringe 1 EACH SC SCH (08:49)
[2018-07-03] MEDS: Aspirin 325 mg Enteric Coated Tablet PO SCH (08:49)
[2018-07-03] MEDS: Famotidine 20 MG TAB PO SCH (08:49)
[2018-07-03] MEDS: Potassium Chloride 20 MEQ TAB PO SCH (08:49)
[2018-07-03] MEDS: Clopidogrel Bisulfate 75 MG TAB PO SCH (08:49)
[2018-07-03] MEDS: Lisinopril 5 MG TAB PO SCH (08:49)
[2018-07-03] MEDS: guaiFENesin/DM ER PO SCH (08:49)
--- NOTE | 2018-07-03 12:56 | PDOC.CTH ---
Cardiology Progress Note - Subjective The pt seen and examined. No overnight events. No cardiac complaints. She cont. coughing, but have improved today. - Objective Vital Signs Temp Pulse Resp BP BP Pulse Ox 07/03/18 12:07 97.9 F 60 18 123/58 L 96 07/03/18 08:49 72 07/03/18 07:35 98.2 F 72 16 130/52 L 95 07/03/18 04:32 98.1 F 64 16 117/57 L 94 L Admit Weight 204 lb 3.2 oz Weight 204 lb 3.2 oz 07/02/18 07/03/18 07/04/18 06:59 06:59 06:59 Intake Total 1150 960 Output Total 1625 1100 Balance -475 -140 - Physical Examination General/Neuro: alert & oriented x3 Neck: no JVD present Lungs: CTA Heart: RRR Abdomen: soft Extremities: other: (No edema) - Telemetry Telemetry Rhythm: SR 60s - Labs Result Diagrams: 06/30/18 05:09 07/03/18 04:48 Troponin/CKMB CK-MB (CK-2) 2.8 ng/mL (0-6.6) 06/28/18 16:15 Troponin I 1.398 ng/mL (< 0.028) H* 06/28/18 20:08 - Assessment/Plan 1. NSTEMI - No more CP or discomfort. Not good candidate for further cardiac procedure for now 2/2 severe vascular disease and severe CMY. 2. Ischemic CMY with AICD placement in 2018 - EF 15-20% on 06/28/2018. On Lasix 40mg PO BID, bblocker, Lisinopril 5mg bid. 3. CAD with hx of CABG in 2004 and cath in 2016 with severe subclavian stenosis prior to take of HACKETT; On Plavix, Coreg 3.125mg BID, ASA 81mg, and statin. 4. Severe - cont. to monitor (It could be possible to consider a TAVR but it would be difficult due to her vascular disease and decrease EF.) 5. Gout - stable MAR reviewed * Echo on 06/28/2018 showed EF 15-20%, distolic dysfunction, mod dilated la, mild MR, mod AR, mod-severe with RAMON 0.84cm2, severe TR, mild-mod OK. * From Cardiac standpoint, the pt is stable to d/c home. The pt will f/u with Dr More' office within 2-4 wks. Review of Systems - Review of Systems Constitutional: reports: no symptoms reported EENTM: reports: no symptoms reported Respiratory: reports: no symptoms reported Cardiac (ROS): reports: no symptoms reported ABD/GI: reports: no symptoms reported : reports: no symptoms reported Musculoskeletal: reports: no symptoms reported
[2018-07-03 16:25] VITALS: BP 135/64; TEMP 97.5
--- NOTE | 2018-07-04 04:09 | DIS ---
DATE OF ADMISSION: 06/28/2018 DATE OF DISCHARGE: 07/03/2018 PRIMARY CARE PHYSICIAN: Xavier Leonard MD REASON FOR ADMISSION: Non ST-elevation myocardial infarction. DIAGNOSES AT DISCHARGE: 1. Non ST-elevation myocardial infarction. 2. Acute on chronic systolic and diastolic congestive heart failure, [place] Heart Association class III. 3. Severe aortic stenosis. 4. Ischemic cardiomyopathy. 5. Coronary artery disease. 6. Peripheral vascular disease. 7. Gouty arthropathy. PROCEDURES: 1. Echocardiogram showing ejection fraction of 15% to 20%, diastolic dysfunction as well, and [id number] aortic stenosis. Aortic valve area estimated at 0.84 cm2. 2. X-ray of the foot showing soft tissue edema of the dorsum of the forefoot, mild osteoarthrosis of the first metatarsophalangeal joint. No fracture. CONSULTS: Cardiology, Destinee More MD. SUMMARY OF HOSPITAL COURSE: This is a 73-year-old female, who came in after having chest pain and shortness of breath. In the emergency room, her troponin was elevated with no ST-segment elevation on her EKG. The patient was admitted to the hospital. She was given Lovenox and aspirin, and Dr. More was consulted. The patient was treated in the hospital with resolution of her pain. She did have some swelling in her right foot along with pain in the right foot. X-ray did not show any fracture. Ultrasound of right lower extremity showed no evidence of DVT. She did have a history of gout and was put on treatment including allopurinol and prednisone. She had improvement in her symptoms and was able to eventually start ambulating. On the day of discharge, the patient was cleared by Cardiology for discharge. PT evaluated her and she was able to ambulate in the hallway. They recommended that she have a cane which she already has at home, so she is being discharged home. DISCHARGE MANAGEMENT: Discharged home. FOLLOWUP: Follow up with Dr. More on July 21 at 9:[address] Leonard on July 07 at 10:30 a.m. and also with the [facility]. ACTIVITY: As tolerated. DIET: Diabetic fluid-restricted diet. MEDICATIONS: 1. Aspirin 81 mg daily, 30 tablets dispensed. 2. Furosemide 40 mg twice a day, 60 tablets dispensed. 3. Continue allopurinol 300 mg daily. 4. Continue lisinopril 2.5 mg twice a day. 5. Potassium chloride 20 mEq daily. 6. Atorvastatin 40 mg at night. 7. Tessalon Perles as needed. 8. Carvedilol 3.125 mg twice a day. 9. Clopidogrel 75 mg daily. 10. Zetia 10 mg daily. 11. Levemir 45 units each morning and NovoLog 10 units 3 times a day with meals. 12. The patient is to continue her prednisone Dosepak. Job ID: [id number]
[2018-07-04] MEDS ORDERED: Aspirin 81 mg Enteric Coated Tablet PO SCH (09:00)
== END 2018-07-03 17:29 | disposition home health service (06) | DRG 280 ==
LOC: ERS 00:50 → ERHOLD 03:36 → 2NO 14:33
PROVIDERS: ADMIT Hospitalist; ATTEND Hospitalist
DX: I21.4 Non-ST elevation (NSTEMI) myocardial infarction (principal); I50.43 Acute on chronic combined systolic (congestive) and diastolic (congestive) heart failure; I25.10 Atherosclerotic heart disease of native coronary artery without angina pectoris; E78.5 Hyperlipidemia, unspecified; E66.01 Morbid (severe) obesity due to excess calories; Z68.36 Body mass index [BMI] 36.0-36.9, adult; E11.51 Type 2 diabetes mellitus with diabetic peripheral angiopathy without gangrene; D69.6 Thrombocytopenia, unspecified; I11.0 Hypertensive heart disease with heart failure; I35.0 Nonrheumatic aortic (valve) stenosis; I25.5 Ischemic cardiomyopathy; M10.9 Gout, unspecified; Z88.0 Allergy status to penicillin; Z87.891 Personal history of nicotine dependence; Z95.1 Presence of aortocoronary bypass graft; Z82.49 Family history of ischemic heart disease and other diseases of the circulatory system; Z83.3 Family history of diabetes mellitus
CPT/HCPCS: 36415; 36416; 71045; 80048; 80053; 82553; 83880; 84484; 84550; 85007; 85025; 85027; 87804; 90471; 90670; 93005; 93306; 93798; 94760; 96372; 96374; 96375; 96376; G0009; J1170; J1650; J1940; J2270; J2405; J3010; J7506; S0028

== ENCOUNTER 2018-07-08 08:23 | Inpatient (IN) | payer MEDICARE, MEDICAID ==
[2018-07-08 09:56] LABS: #Lymphocytes 1.3 thou/uL (1.20-3.40); #Monocytes 0.6 thou/uL (0.11-0.59); #Neutrophils 6.6 thou/uL (1.40-6.50); %Basophils 0.5 % (0.0-1.0); %Eosinophils 0.5 % (0.0-10.0); %Lymphocytes 15.4 % (21.0-51.0); %Monocytes 6.6 % (0.0-10.0); ALT (SGPT) 23 U/L (8-55); AST (SGOT) 24 U/L (5-34); Albumin 3.3 g/dL (3.4-4.8); Alkaline Phosphatase 101 U/L (40-150); Anion Gap 15 mmol/L (10-20); BUN (Urea Nitrogen) 15 mg/dL (9.8-20.1); Bilirubin, Total 1.8 mg/dL (0.2-1.2); Burr Cells SLIGHT = 2-5 cells (100X) (0-1/hpf); Calc. Creatinine Clearance 0 mL/min (70-130); Calcium 9.1 mg/dL (7.8-10.44); Carbon Dioxide 27 mmol/L (23-31); Chloride 97 mmol/L (98-107); Estimated GFR-MDRD 81; Globulin 3.5 g/dL (2.4-3.5); Glucose 160 mg/dL (83-110); Hemoglobin 11.7 g/dL (12.0-16.0); Hypochromia SLIGHT = 6-15 cells (100X) (0-5/hpf); MDiff Complete? YES; Mean Corpuscular HGB CONC 29.9 g/dL (32.0-36.0); Mean Corpuscular Hemoglobin 28.7 pg (27.0-31.0); Platelet Morphology Comment PLT clumps seen-LOW; Potassium 4.2 mmol/L (3.5-5.1); Protein, Total 6.8 g/dL (6.0-8.3); RBC Distribution Width 14.7 % (11.5-14.5); Red Blood Cell (RBC) Count 4.09 mill/uL (4.20-5.40); Sodium 135 mmol/L (136-145); White Blood Cell (WBC) Count 8.6 thou/uL (4.8-10.8)
[2018-07-08] MEDS ORDERED: Iopamidol 370 76% 100 ML VIAL ONE (10:15)
[2018-07-08 10:16] LABS: CKMB 1.7 ng/mL (0-6.6)
[2018-07-08] MEDS ORDERED: Aspirin Chewable 81 MG TAB ONE (10:35)
--- NOTE | 2018-07-08 10:38 | RAD ---
RADIOGRAPH CHEST 1 VIEW: HISTORY: A 73-year-old female with cough. FINDINGS: There is cardiomegaly. There is no evidence of air space density, pulmonary edema, or pneumothorax. T he lateral costophrenic angles are sharp. No evidence of pulmonary venous engorgement. Sternotomy w ires. Surgical clips along the left cardiac border. Left subclavian single-lead AICD. Surgical cli ps in the left lower neck. IMPRESSION: 1) No acute pulmonary findings. 2) Cardiomegaly without congestive heart failure. 3) Automatic implantable cardioverter-defibrillator. 4) Status post coronary artery bypass graft surgery is evidence for coronary atherosclerotic disease. micki [] POS: MANNY
[2018-07-08] MEDS ORDERED: Enoxaparin Sodium 100 MG/ML SYRINGE ONE (10:50)
[2018-07-08] MEDS ORDERED: Ondansetron ODT 4 MG TAB PO PRN (12:05)
[2018-07-08] MEDS ORDERED: HumaLOG 300 UNITS/3 ML VIAL SC PRN (12:05)
[2018-07-08] MEDS ORDERED: Cepastat Lozenges 1 LOZ PO PRN (12:05)
[2018-07-08] MEDS ORDERED: Ondansetron PF 4 MG/2 ML Vial IVP PRN (12:05)
[2018-07-08] MEDS ORDERED: Bisacodyl 10 MG SUPP PR PRN (12:05)
[2018-07-08] MEDS ORDERED: Artificial Tears 18 DROP/0.9 ML EA EYE PRN (12:05)
[2018-07-08] MEDS ORDERED: hydrALAZINE 20 MG/ML VIAL SLOW IVP PRN (12:05)
[2018-07-08] MEDS ORDERED: Acetaminophen 325 MG TAB PO PRN (12:05)
[2018-07-08] MEDS ORDERED: Sodium Chloride 0.65% Nasal 44 ML BOT EA NARE PRN (12:05)
[2018-07-08] MEDS ORDERED: Loratadine 10 MG TAB PO PRN (12:05)
[2018-07-08] MEDS ORDERED: Hydrocerin (Eucerin) Cream 120 gm Jar TOP PRN (12:05)
[2018-07-08] MEDS ORDERED: Zolpidem Tartrate 5 MG TAB PO PRN (12:05)
[2018-07-08] MEDS ORDERED: Loperamide HCl 2 MG CAP PO PRN (12:05)
[2018-07-08] MEDS ORDERED: Dextrose 50% Abboject 50 ML SYRINGE SLOW IVP PRN (12:05)
[2018-07-08] MEDS ORDERED: Calcium Carbonate 500 MG ChewTAB PO PRN (12:05)
[2018-07-08] MEDS ORDERED: Dextrose 5% in Water 1,000 ML IV PRN (12:05)
[2018-07-08] MEDS ORDERED: Diabetic Tussin 200 MG/10 ML UDCUP PO PRN (12:05)
[2018-07-08] MEDS ORDERED: Senokot S 8.6-50 MG TAB PO PRN (12:05)
[2018-07-08] MEDS ORDERED: Nitroglycerin 0.4 MG TAB (25 Tab Bottle) SL PRN (12:05)
--- NOTE | 2018-07-08 13:02 | HP ---
PRIMARY CARE PHYSICIAN: Xavier Leonard MD REASON FOR ADMISSION: Acute on chronic systolic congestive heart failure exacerbation, severe right leg pain. HISTORY OF PRESENT ILLNESS: A 73-year-old female, who has underlying history of cardiomyopathy. Her EF is 15% to 20%. She has AICD in place. She has severe tricuspid regurgitation. She was recently admitted in our hospital for congestive heart failure exacerbation on June 28, 2018. At that time, Cardiology evaluated this patient and the patient was discharged home on July 03, 2018. The patient reports that after staying in the hospital, after that she was feeling much better, but again the patient was started getting worse for last 2 to 3 days. She also noticed increasing lower extremity edema, more on the right side. Her main concern was right great toe pain as well as right foot pain, which was gradually getting worse for last few days. The patient denies any fever or chills. She denies any associated nausea or vomiting. When she was in the emergency room, the patient started having acute chest pain. The patient is hemodynamically stable and her troponin showed indeterminate range. During previous admission, the patient also had non-STEMI. Her BNP is better than the last time, but the patient has increasing edema. She is also feeling shortness of breath. She does have chronic orthopnea. She denies any PND. She does have dyspnea on exertion. She denies any flu-like symptoms. She does have cough on lying down position. She denies any palpitation, dizziness, or syncope. PAST MEDICAL HISTORY: Ischemic cardiomyopathy, chronic systolic and diastolic heart failure, severe tricuspid regurgitation, coronary artery disease, history of CABG, diabetes type 2, hypertension, dyslipidemia, morbid obesity, peripheral vascular disease, hyperuricemia, and gout. PAST SURGICAL HISTORY: Hysterectomy, CABG x4 in 2004, and carotid endarterectomy in 2016. PAST PSYCHIATRIC HISTORY: Reviewed and negative. SOCIAL HISTORY: The patient lives at home. She quit smoking more than 10 years ago. She denies any alcohol or other illicit drug abuse. She denies any currently smoking. ALLERGIES: PENICILLIN. FAMILY HISTORY: Hypertension and diabetes runs among several family members, but negative for any premature coronary artery disease, stroke, or cancer. REVIEW OF SYSTEMS: CONSTITUTIONAL: Negative for weight loss or gain, ability to conduct usual activities. SKIN: Negative for rash, itching. EYES: Negative for double vision, pain. ENT/MOUTH: Negative for nose bleeding, neck stiffness, pain, tenderness. CARDIOVASCULAR: Negative for palpitations, dyspnea on exertion, orthopnea. RESPIRATORY: Negative for shortness of breath, wheezing, cough, hemoptysis, fever or night sweats. GASTROINTESTINAL: Negative for poor appetite, abdominal pain, heartburn, nausea, vomiting, constipation, or diarrhea. GENITOURINARY: Negative for urgency, frequency, dysuria, nocturia. MUSCULOSKELETAL: Negative for pain, swelling. NEUROLOGIC/PSYCHIATRIC: Negative for anxiety, depression. ALLERGY/IMMUNOLOGIC: Negative for skin rash, bleeding tendency. Please see my HPI for pertinent positive and negative. All other review of systems reviewed and negative except as mentioned in the HPI. CURRENT HOME MEDICATIONS: 1. Allopurinol 300 mg p.o. daily. 2. Lipitor 40 mg p.o. at bedtime. 3. Zetia 10 mg daily. 4. NovoLog 10 units subcu t.i.d. 5. Levemir 45 units subcu in the morning. 6. Potassium chloride 20 mEq p.o. daily. 7. Aspirin 81 mg daily. 8. Coreg 3.125 mg b.i.d. 9. Plavix 75 mg p.o. daily. 10. Lasix 40 mg p.o. b.i.d. 11. Lisinopril 2.5 mg p.o. b.i.d. EMERGENCY ROOM COURSE: The patient has received Lovenox 1 mg/kg and aspirin 324 mg. PHYSICAL EXAMINATION: VITAL SIGNS: On arrival, blood pressure 126/66, pulse 79, respiratory rate 20, temperature 97.8, and saturation 100% on room air. Weight 91.9 kg. GENERAL: The patient is currently alert, awake. No obvious acute distress. HEENT: Head; normocephalic, atraumatic. Eyes; pupils are round and reactive to light. Extraocular muscle intact. ENT; oropharynx within normal limits. Moist mucous membranes. No pharyngeal erythema. No exudate. NECK: Elevated JVD. No thyromegaly. No carotid bruit. LUNGS: Bibasilar rales more on the left side. No wheezing. No accessory muscles of respiration in use. CARDIAC: S1 and S2, regular. Systolic murmur noted parasternally. Gallop noted. ABDOMEN: Soft. Bowel sounds present. Nontender. Nondistended. No organomegaly. No mass. No suprapubic tenderness. BACK: Unremarkable. No CVA tenderness. EXTREMITIES: Upper extremity; passive movement of all joints are normal. Lower extremity; bilateral lower extremity pitting edema noted. Good distal pulsation. The patient does have tenderness in right foot without any cellulitis. NEUROLOGIC: Nonfocal examination. SKIN: No skin rash. Warm noted in the right foot, but no erythema. PSYCHIATRIC: Normal affect. IMAGING DATA: Significant labs; EKG showing LVH, left atrial enlargement, nonspecific ST-T changes. Chest x-ray showing pulmonary vascular congestion, CABG changes. AICD in place. Chest CT showing heavily calcified aorta, left pleural effusion. No PE. CT of lower extremity done, result is pending. LABORATORY DATA: CBC WBC 8.6, hemoglobin 11.7, and platelet test not performed. D-dimer 0.80. BMP; sodium 135, potassium 4.2, chloride 97, carbon dioxide 27, BUN 15, creatinine 0.84, and calcium 9.1. LFT; AST 24, ALT 23, alkaline phosphatase 101, and albumin 3.3. CK-MB 1.7, troponin 0.293. BNP 2560. ASSESSMENT AND PLAN: 1. Acute on chronic systolic congestive heart failure exacerbation with ejection fraction 15% to 20%. The patient has automatic implantable cardioverter-defibrillator in place. At this point, the patient has increasing lower extremity edema. We will continue with Lasix 40 mg IV b.i.d. when blood pressure permits. Then, we will also resume Coreg 3.125 mg p.o. b.i.d. and lisinopril 2.5 mg p.o. b.i.d. We will monitor daily weight, input and output chart, and replace electrolytes accordingly. 2. Right foot pain, suspecting acute gouty attack. We will start colchicine 0.6 mg p.o. b.i.d., and we will check uric acid and CRP. Her pain will be controlled with pain medication as needed. 3. Elevated troponin. This is downtrend of recent non-ST elevation myocardial infarction. We will do serial cardiac enzyme x3 as the patient had chest pain in the emergency room. 4. Coronary artery disease with history of coronary artery bypass grafting associated with ischemic cardiomyopathy. We will continue Lipitor 40 mg p.o. at bedtime, aspirin 81 mg p.o. daily, and Plavix 75 mg p.o. daily along with Coreg and lisinopril. 5. Diabetes, type 2. We will continue with insulin Levemir 45 units subcu daily. 6. Dyslipidemia. We will continue Zetia 10 mg daily along with Lipitor 40 mg p.o. at bedtime. 7. Anemia, normocytic normochromic. We will continue ferrous sulfate 325 mg p.o. daily. 8. Deep vein thrombosis prophylaxis. Lovenox 40 mg subcu daily. 9. Gastrointestinal prophylaxis. Pepcid 20 mg p.o. b.i.d. CODE STATUS: The patient is full code. The patient does not have any surrogate decision maker. DISPOSITION PLAN: Based on clinical course, plan of care discussed with the patient's family member at bedside in the emergency room. Job ID: [id number]
--- NOTE | 2018-07-08 13:11 | CT ---
CT PULMONARY ANGIOGRAM WITH IV CONTRAST AND 3D POSTPROCESSING: HISTORY: Chest pain and elevated D-dimer. FINDINGS: Comparison is made with the exam of 07/25/2017. There is good contrast opacification of the pulmonary arterial vasculature without filling defect to suggest pulmonary embolism. There are vascular calcifications without evidence of aneurysmal dilatat ion of the thoracic aorta. No pericardial effusion is seen. There is a small left and tiny right pl eural effusion. The 4 mm right upper lobe lung nodule is stable. No pneumothoraces are seen. Tyesha lithiasis is again seen. IMPRESSION: No CT evidence of pulmonary embolism. POS: JOSE
--- NOTE | 2018-07-08 13:18 | CT ---
CT RIGHT FOOT WITH CONTRAST: DATE: 07/08/2018. HISTORY: A 73-year-old female with right foot pain. FINDINGS: There is soft tissue edema at the distal ankle and throughout the foot, especially at the dorsum of t he foot where the soft tissue edema is severe. There is no periostitis, permeative lesion, osteolyti c lesion, osteoblastic lesion, or fracture. The joint spaces are maintained without erosions or larg e osteophytes. No focal organized abscess is identified. IMPRESSION: 1. Diffuse soft tissue edema of the ankle and foot, especially at the dorsum of the foot. 2. No significant osseous abnormality identified. POS: JOSE
[2018-07-08 13:42] LABS: Troponin I 0.309 ng/mL (< 0.028)
[2018-07-08] MEDS: HYDROcodone/Acetaminophen 5/325 mg Tablet PO PRN ×2 (14:20→21:11)
[2018-07-08] MEDS: Furosemide 40 MG/4 ML VIAL SLOW IVP SCH (14:20)
[2018-07-08] MEDS ORDERED: Ketorolac Tromethamine 30 MG/ML VIAL IVP PRN (15:17)
[2018-07-08] MEDS ORDERED: Vancomycin HCl 2.25 GM in Sodium Chloride 0.9% 500 ML IVPB SCH (16:00)
[2018-07-08 16:20] LABS: Troponin I 0.286 ng/mL (< 0.028)
[2018-07-08] MEDS: Carvedilol 3.125 MG TAB PO SCH (16:26)
--- NOTE | 2018-07-08 17:54 | CON ---
DATE OF CONSULTATION: 07/08/2018 CARDIOLOGY CONSULTATION REASON FOR CONSULTATION: Heart failure. HISTORY OF PRESENT ILLNESS: Ms. Smallwood is a pleasant 73-year-old female, who comes to the hospital for foot pain. She was in the hospital for non-STEMI just a few weeks ago, treated medically secondary to having severe disease, not amenable to any revascularization. She comes back today as she has severe right foot pain. She was told that this may be gout. She was admitted for this. She denies any shortness of breath. Her only complaint is foot pain. PAST MEDICAL HISTORY: 1. Severe ischemic cardiomyopathy, EF of 10% to 15%. 2. Chronically elevated troponin. 3. Chronically elevated BNP. 4. Severe TR. 5. CAD. 6. Type 2 diabetes. 7. Hypertension. 8. Hyperlipidemia. 9. Obesity. 10. Peripheral vascular disease. 11. Hyperuricemia. 12. Gout. SURGICAL HISTORY: 1. Hysterectomy. 2. CABG x4 in 2003. 3. Carotid endarterectomy in 2016. SOCIAL HISTORY: Quit smoking 10 years ago. No alcohol or drug use. OUTPATIENT MEDICATIONS: Include: 1. Doxycycline 100 mg p.o. b.i.d. 2. Levemir. 3. Insulin NovoLog. 4. Lasix 40 mg b.i.d. 5. Plavix 75 mg a day. 6. Lisinopril 2.5 b.i.d. 7. Carvedilol 3.125 b.i.d. 8. Tessalon Perles. 9. Potassium chloride 20 mEq a day. 10. Atorvastatin 40 mg at bedtime. 11. Allopurinol 300 mg a day. 12. Zetia 10 mg a day. 13. Aspirin 81 a day. ALLERGIES: PENICILLINS. REVIEW OF SYSTEMS: A 12-point review of systems was done and was found to be negative unless stated in the history of present illness. PHYSICAL EXAMINATION: VITAL SIGNS: Temperature 97.8, pulse 97, respiratory rate 20, saturating 94% on room air, and blood pressure 113/56. GENERAL: Awake, alert, and oriented x3, in moderate distress due to pain on her foot. HEENT: Normocephalic and atraumatic. NECK: Supple. Lungs: Clear to auscultation bilaterally. CARDIOVASCULAR: S1 and S2. No S3 or S4. ABDOMEN: Soft. Positive bowel sounds. EXTREMITIES: There is swelling and erythema and local warmth of the dorsum of the foot on the right with extension into the king, consistent with cellulitis. I do not think this is gout as her joint is actually not painful. Her hallux on the right is very tender to palpation, but not the joints, it is more of the soft tissue. LABORATORY DATA: Laboratory work was reviewed. CBC with white count of 8.6, hemoglobin 11.7, hematocrit 39, platelet count was not checked. D-dimer was 0.8. Chemistry with a sodium 135. Troponin was 0.29, 0.30, 0.28, with a CRP of 1.34. BNP was 2560, which is very high, but lower than what it was last time. Albumin of 3.3. CT of the chest shows no evidence of pulmonary embolus. Clear lungs otherwise. There is a 4 mm right upper lobe lung nodule, which is stable. Very tiny amount of pleural effusion. CT of the lower extremity confirms clinical findings with diffuse soft tissue edema of the ankle and foot on the dorsum of the foot with no osseous abnormality, and joint spaces are maintained without erosions or large osteophytes. ASSESSMENT AND PLAN: 1. Chronic systolic heart failure. She is actually currently I think close to her compensated state. We would just put her on her home dose of Lasix. 2. Right foot pain. Concerning for cellulitis. We would recommend starting antibiotics per Primary Team. Thank you for letting me to participate in the care of your patient. We will follow. Job ID: [id number]
[2018-07-08] MEDS ORDERED: Doxycycline 100 MG CAP PO SCH (21:00)
[2018-07-08] MEDS: Colchicine 0.6 MG TAB PO SCH (21:09)
[2018-07-08] MEDS: Famotidine 20 MG TAB PO SCH (21:10)
[2018-07-08] MEDS: Lisinopril 2.5 MG TAB PO SCH (21:10)
[2018-07-08] MEDS: Atorvastatin Calcium 40 MG TAB PO SCH (21:10)
[2018-07-09] MEDS: Furosemide 40 MG/4 ML VIAL SLOW IVP SCH ×2 (05:19→13:48)
[2018-07-09 05:23] LABS: Bilirubin Small (Negative); Blood, Urine Negative (Negative); Clarity CLEAR (Clear); Glucose, Urine (Dipstick) Negative (Negative); Leukocyte Negative (Negative); Nitrite Negative (Negative); Protein, Urine (Dipstick) Negative (Neg-Trace); Specific Gravity, Urine 1.041 (1.002-1.036)
[2018-07-09 05:25] LABS: Bacteria/HPF None Seen HPF (None Seen); Hyaline Casts/LPF 0-3 HYALINE CAST LPF (0-3 Hyaline); Squamous Epithelial 0-3 HPF (0-3); WBC/HPF 0-3 HPF (0-3)
[2018-07-09] MEDS: HYDROcodone/Acetaminophen 5/325 mg Tablet PO PRN ×3 (05:36→20:09)
[2018-07-09 06:00] LABS: ALT (SGPT) 19 U/L (8-55); AST (SGOT) 15 U/L (5-34); Albumin 3.3 g/dL (3.4-4.8); Alkaline Phosphatase 103 U/L (40-150); Anion Gap 10 mmol/L (10-20); BUN (Urea Nitrogen) 16 mg/dL (9.8-20.1); Calc. Creatinine Clearance 84 mL/min (70-130); Carbon Dioxide 30 mmol/L (23-31); Chloride 97 mmol/L (98-107); Estimated GFR-MDRD 77; Globulin 3.1 g/dL (2.4-3.5); Glucose 208 mg/dL (83-110); Magnesium 1.6 mg/dL (1.6-2.6); Protein, Total 6.4 g/dL (6.0-8.3); Sodium 133 mmol/L (136-145); Uric Acid 5.3 mg/dL (2.6-6.0)
[2018-07-09 06:09] LABS: #Basophils 0.1 thou/uL (0.0-0.2); #Lymphocytes 1.5 thou/uL (1.20-3.40); #Monocytes 0.6 thou/uL (0.11-0.59); #Neutrophils 3.7 thou/uL (1.40-6.50); %Basophils 1.3 % (0.0-1.0); %Eosinophils 0.6 % (0.0-10.0); %Lymphocytes 26.1 % (21.0-51.0); %Monocytes 9.2 % (0.0-10.0); %Neutrophils 62.8 % (42.0-75.0); Hemoglobin 11.1 g/dL (12.0-16.0); Lymphocytes 20 % (21-51); MDiff Complete? YES; Mean Corpuscular HGB CONC 31.3 g/dL (32.0-36.0); Mean Corpuscular Hemoglobin 30.1 pg (27.0-31.0); Mean Corpuscular Volume 96.2 fL (78.0-98.0); Monocytes 12 % (0-10); Neutrophil 68 % (42-75); Platelet Clumps MARKED; RBC Distribution Width 14.7 % (11.5-14.5); RBC Morphology Normal; Red Blood Cell (RBC) Count 3.67 mill/uL (4.20-5.40); White Blood Cell (WBC) Count 5.9 thou/uL (4.8-10.8)
[2018-07-09] MEDS: Ezetimibe 10 MG TAB PO SCH (08:28)
[2018-07-09] MEDS: Aspirin 81 mg Enteric Coated Tablet PO SCH (08:28)
[2018-07-09] MEDS: Allopurinol 300 MG TAB PO SCH (08:28)
[2018-07-09] MEDS: Lisinopril 2.5 MG TAB PO SCH ×2 (08:28→20:09)
[2018-07-09] MEDS: Enoxaparin Sodium 40 MG/0.4 ML SYRINGE SC SCH (08:29)
[2018-07-09] MEDS: Famotidine 20 MG TAB PO SCH ×2 (08:29→20:09)
[2018-07-09] MEDS: Colchicine 0.6 MG TAB PO SCH ×2 (08:29→20:09)
[2018-07-09] MEDS: Potassium Chloride 20 MEQ TAB PO SCH (08:29)
[2018-07-09] MEDS: Carvedilol 3.125 MG TAB PO SCH ×2 (08:29→16:26)
[2018-07-09] MEDS: Clopidogrel Bisulfate 75 MG TAB PO SCH (08:29)
[2018-07-09] MEDS ORDERED: Levemir Flexpen 100 UNITS/ML PEN SC SCH (09:00)
[2018-07-09] MEDS: Insulin Glargine 45 UNITS in Pre-Filled Syringe 1 EACH SC SCH (09:26)
--- NOTE | 2018-07-09 11:34 | PDOC.PN ---
- Subjective Encounter Start Date: 07/09/18 Encounter Start Time: 07:10 pt has less pain in her right foot, no fever, dyspnea improving Patient seen and examined. No overnight events - Objective Resuscitation Status - Order Detail: 07/08/18 11:22 Resuscitation Status Routine Resuscitation Status: FULL: Full Resuscitation MAR Reviewed: Yes Vital Signs & Weight: Vital Signs (12 hours) Temp Pulse Resp BP Pulse Ox 07/09/18 08:10 98.0 F 82 18 129/59 L 07/09/18 03:15 98.1 F 75 16 130/63 94 L Weight Weight 200 lb 11.2 oz I&O: 07/08/18 07/09/18 07/10/18 06:59 06:59 06:59 Intake Total 625 Output Total 600 Balance 25 Result Diagrams: 07/09/18 04:56 07/09/18 04:56 Additional Labs: Accuchecks 07/09/18 07/08/18 07/08/18 05:29 20:20 16:59 POC Glucose 204 H 200 H 203 H EKG Reviewed by me: Yes (pacing) Phys Exam - Physical Examination Constitutional: NAD HEENT: PERRLA, moist MMs, sclera anicteric Neck: no JVD, supple Respiratory: no wheezing, no rhonchi left base rales Cardiovascular: RRR SM at apex, and aortic area Gastrointestinal: soft, non-tender, no distention, positive bowel sounds Musculoskeletal: pulses present, edema present Neurological: non-focal, normal sensation Lymphatic: no nodes Psychiatric: normal affect, A&O x 3 Skin: no rash, normal turgor Dx/Plan (1) Acute on chronic combined systolic and diastolic ACC/AHA stage C congestive heart failure Code(s): I50.43 - ACUTE ON CHRONIC COMBINED SYSTOLIC AND DIASTOLIC HRT FAIL Status: Acute (2) Demand ischemia Code(s): I24.8 - OTHER FORMS OF ACUTE ISCHEMIC HEART DISEASE Status: Acute (3) Right foot pain Code(s): M79.671 - PAIN IN RIGHT FOOT Status: Acute (4) Anemia, normocytic normochromic Code(s): D64.9 - ANEMIA, UNSPECIFIED Status: Chronic (5) CAD (coronary artery disease) Code(s): I25.10 - ATHSCL HEART DISEASE OF [place] CORONARY ARTERY W/O ANG PCTRS Status: Chronic (6) DMII (diabetes mellitus, type 2) Status: Chronic (7) Edema of right lower extremity Code(s): R60.0 - LOCALIZED EDEMA Status: Chronic Comment: (8) Gouty arthropathy Code(s): M10.9 - GOUT, UNSPECIFIED Status: Chronic Comment: Uric acid 5.2, continue Prednisone and Allopurinol, improving (9) H/O carotid artery stenosis Code(s): Z86.79 - PERSONAL HISTORY OF OTHER DISEASES OF THE CIRCULATORY SYSTEM Status: Chronic (10) HTN (hypertension), benign Code(s): I10 - ESSENTIAL (PRIMARY) HYPERTENSION Status: Chronic (11) Ischemic cardiomyopathy Code(s): I25.5 - ISCHEMIC CARDIOMYOPATHY Status: Chronic Comment: EF 15-20% , AICD in place (12) Moderate aortic regurgitation with LV dilation by prior echocardiogram Code(s): I35.1 - NONRHEUMATIC AORTIC (VALVE) INSUFFICIENCY; I51.7 - CARDIOMEGALY Status: Chronic (13) Moderate aortic stenosis by prior echocardiogram Code(s): I35.0 - NONRHEUMATIC AORTIC (VALVE) STENOSIS Status: Chronic (14) Obesity (BMI 30-39.9) Code(s): E66.9 - OBESITY, UNSPECIFIED Status: Chronic (15) PAD (peripheral artery disease) Code(s): I73.9 - PERIPHERAL VASCULAR DISEASE, UNSPECIFIED Status: Chronic (16) Severe tricuspid regurgitation by prior echocardiogram Code(s): I07.1 - RHEUMATIC TRICUSPID INSUFFICIENCY Status: Chronic (17) Subclavian arterial stenosis Code(s): I77.1 - STRICTURE OF ARTERY Status: Chronic Comment: s/p B/L stenting 08/01/17 - Plan cont current plan of care, continue antibiotics * her right foot seems more gouty attack rather than cellulitis * continue colchicine and vancomycin for now * continue diuresis * medication reviewed as below * symptomatic treatment * cardiology recommendation appreciated * pt is approaching her euvolemic state. Review of Systems - Review of Systems ENT: negative: Ear Pain, Ear Discharge, Nose Pain, Nose Discharge, Nose Congestion, Mouth Pain, Mouth Swelling, Throat Pain, Throat Swelling, Other Respiratory: negative: Cough, Dry, Shortness of Breath, Hemoptysis, SOB with Excertion, Pleuritic Pain, Sputum, Wheezing Cardiovascular: edema. negative: chest pain, palpitations, orthopnea, paroxysmal nocturnal dyspnea, light headedness, other Gastrointestinal: negative: Nausea, Vomiting, Abdominal Pain, Diarrhea, Constipation, Melena, Hematochezia, Other Genitourinary: negative: Dysuria, Frequency, Incontinence, Hematuria, Retention , Other Musculoskeletal: Foot Pain. negative: Neck Pain, Shoulder Pain, Arm Pain, Back Pain, Hand Pain, Leg Pain, Other Skin: negative: Rash, Lesions, Alessandro, Bruising, Other - Medications/Allergies Allergies/Adverse Reactions: Allergies Allergy/AdvReac Type Severity Reaction Status Date / Time Penicillins Allergy Rash Verified 07/25/17 18:07 Medications: Current Medications Acetaminophen (Tylenol) 650 mg PO Q4H PRN PRN Reason: Headache/Fever/Mild Pain (1-3) Hydrocodone Bitart/Acetaminophen (Rudolph 5/325) 1 tab PO Q4H PRN PRN Reason: Moderate Pain (4-6) Last Admin: 07/09/18 05:36 Dose: 1 tab Allopurinol (Zyloprim) 300 mg PO DAILY [facility] Last Admin: 07/09/18 08:28 Dose: 300 mg Artificial Tears (Tears Naturale) 2 drop EA EYE PRN PRN PRN Reason: Dry Eyes Aspirin (Ecotrin) 81 mg PO DAILY [facility] Last Admin: 07/09/18 08:28 Dose: 81 mg Atorvastatin Calcium (Lipitor) 40 mg PO HS [facility] Last Admin: 07/08/18 21:10 Dose: 40 mg Bisacodyl (Dulcolax) 10 mg DE DAILYPRN PRN PRN Reason: Constipation Calcium Carbonate (Tums) 1,000 mg PO Q4H PRN PRN Reason: Heartburn or Indigestion Carvedilol (Coreg) 3.125 mg PO BID-[facility] Last Admin: 07/09/18 08:29 Dose: 3.125 mg Clopidogrel Bisulfate (Plavix) 75 mg PO DAILY [facility] Last Admin: 07/09/18 08:29 Dose: 75 mg Colchicine (Colcrys) 0.6 mg PO BID [facility] Last Admin: 07/09/18 08:29 Dose: 0.6 mg Dextrose/Water (Dextrose 50%) 25 gm SLOW IVP PRN PRN PRN Reason: Hypoglycemia Ezetimibe (Zetia) 10 mg PO DAILY [facility] Last Admin: 07/09/18 08:28 Dose: 10 mg Emollient Cream (Hydrocerin Cream) 0 gm TOP BIDPRN PRN PRN Reason: Dry Skin Enoxaparin Sodium (Lovenox) 40 mg SC 0900 [facility] Last Admin: 07/09/18 08:29 Dose: 40 mg Famotidine (Pepcid) 20 mg PO BID [facility] Last Admin: 07/09/18 08:29 Dose: 20 mg Furosemide (Lasix) 40 mg SLOW IVP 0600,1400 [facility] Last Admin: 07/09/18 05:19 Dose: 40 mg Glucagon (Glucagon) 1 mg IM PRN PRN PRN Reason: Hypoglycemia Guaifenesin (Robitussin Sf) 200 mg PO Q4H PRN PRN Reason: Cough Last Admin: 07/09/18 08:29 Dose: 200 mg Hydralazine HCl (Apresoline) 10 mg SLOW IVP Q4H PRN PRN Reason: SBP > 180 and HR < 70 Dextrose/Water (D5w) 1,000 mls @ 0 mls/hr IV .Q0M PRN PRN Reason: Hypoglycemia Insulin Glargine 45 units/ (Miscellaneous Medication) 0.45 mls @ 0 mls/hr SC QAM [facility] Last Admin: 07/09/18 09:26 Dose: 0.45 mls Vancomycin HCl 1.75 gm/ Sodium (Chloride) 500 mls @ 250 mls/hr IVPB Q24HR@1600 [facility] Insulin Human Lispro (Humalog) 0 units SC .MODERATE SLIDING SC PRN PRN Reason: Moderate Correctional Scale Insulin Human Lispro (Humalog) 0 units SC .BEDTIME SLIDING SC PRN PRN Reason: Bedtime Correctional Scale Last Admin: 07/09/18 05:34 Dose: 2 unit Ketorolac Tromethamine (Toradol) 15 mg IVP Q6H PRN PRN Reason: Pain Stop: 07/13/18 15:18 Lisinopril (Zestril) 2.5 mg PO BID [facility] Last Admin: 07/09/18 08:28 Dose: 2.5 mg Loperamide HCl (Imodium) 2 mg PO PRN PRN PRN Reason: Diarrhea/Loose Stools Loratadine (Claritin) 10 mg PO DAILYPRN PRN PRN Reason: Sinus Symptoms Miscellaneous Medication (Pharmacy To Dose) 1 each IVPB PRN PRN PRN Reason: Pharmacy to dose Nitroglycerin (Nitrostat) 0.4 mg SL Q5MIN PRN PRN Reason: Chest Pain Ondansetron HCl (Zofran Odt) 4 mg PO Q6H PRN PRN Reason: Nausea/Vomiting Ondansetron HCl (Zofran) 4 mg IVP Q6H PRN PRN Reason: Nausea/Vomiting Last Admin: 07/09/18 09:25 Dose: 4 mg Potassium Chloride (K-Dur) 20 meq PO DAILY [facility] Last Admin: 07/09/18 08:29 Dose: 20 meq Senna/Docusate Sodium (Senokot S) 2 tab PO BID PRN PRN Reason: Constipation Sodium Chloride ([place] Nasal [place] 0.65%) 0 ml EA NARE QIDPRN PRN PRN Reason: Nasal Congestion Throat Lozenges (Cepastat Lozenges) 1 [place] PO Q2H PRN PRN Reason: Sore Throat Zolpidem Tartrate (Ambien) 5 mg PO HSPRN PRN PRN Reason: Insomnia
[2018-07-09] MEDS: HumaLOG 300 UNITS/3 ML VIAL SC PRN ×2 (11:48→18:31)
[2018-07-09] MEDS ORDERED: Vancomycin HCl 1.75 GM in Sodium Chloride 0.9% 500 ML IVPB SCH (16:00)
--- NOTE | 2018-07-09 18:24 | PDOC.CTH ---
Cardiology Progress Note - Subjective Doing much better in regards to her pain on her foot. She never had SOB and the only reason she came in was foot swelling and pain. - Objective Vital Signs Temp Pulse Pulse Pulse Resp BP BP 07/09/18 16:29 97.6 F 71 18 07/09/18 11:39 97.4 F L 72 17 07/09/18 09:50 77 78 115/56 L 117/55 L 07/09/18 08:10 98.0 F 82 18 BP Pulse Ox 07/09/18 16:29 117/59 L 97 07/09/18 11:39 107/53 L 95 07/09/18 09:50 07/09/18 08:10 129/59 L Weight 200 lb 11.2 oz 07/08/18 07/09/18 07/10/18 06:59 06:59 06:59 Intake Total 625 1088 Output Total 600 1650 Balance 25 -562 - Physical Examination General/Neuro: alert & oriented x3, NAD Neck: no JVD present Lungs: CTA, unlabored respirations Heart: RRR Abdomen: NT/ND Extremities: + edema B (1+) - Telemetry Telemetry Rhythm: NSR - Labs Result Diagrams: 07/09/18 04:56 07/09/18 04:56 Troponin/CKMB CK-MB (CK-2) 1.7 ng/mL (0-6.6) 07/08/18 09:16 Troponin I 0.286 ng/mL (< 0.028) H 07/08/18 15:26 - Assessment/Plan 1. Acute on chronic systolic heart failure. 2. Foot pain, curently being treated for both cellulitis and gout. 3. Severe Dilated CM EF at 10-15% PLAN: - Continue IV lasix for now. - Would switch to PO lasix tomorrow.
[2018-07-09] MEDS: Atorvastatin Calcium 40 MG TAB PO SCH (20:09)
[2018-07-10] MEDS: Furosemide 40 MG/4 ML VIAL SLOW IVP SCH (05:27)
--- NOTE | 2018-07-10 08:40 | PDOC.CTH ---
Cardiology Progress Note - Subjective The pt seen and examined. No overnight events. No cardiac complaints. She denied SOB, but severe pain to Rt toe. - Objective Vital Signs Temp Pulse Resp BP Pulse Ox 07/10/18 03:41 99.0 F 82 16 106/53 L 97 Weight 200 lb 9 oz 07/09/18 07/10/18 07/11/18 06:59 06:59 06:59 Intake Total 625 1208 Output Total 600 2375 Balance 25 -1167 - Physical Examination General/Neuro: alert & oriented x3 Neck: no JVD present Lungs: other: (diminished at bases) Heart: RRR Abdomen: soft Extremities: other: (erythema to BLE, Rt>Lt with mild edema.) - Telemetry Telemetry Rhythm: SR 70s - Labs Result Diagrams: 07/09/18 04:56 07/09/18 04:56 Troponin/CKMB CK-MB (CK-2) 1.7 ng/mL (0-6.6) 07/08/18 09:16 Troponin I 0.286 ng/mL (< 0.028) H 07/08/18 15:26 - Assessment/Plan 1. Acute on chronic systolic heart failure- stable with Lasix 40mg IV BID which will be changed to PO from this afternoon. On FADIA and BBlocker. . 2. Foot pain, curently being treated for both cellulitis and gout - The pt may need steroid for gout, which improved her symptoms at last admission. 3. Severe Dilated CM EF at 10-15% with AICD placement - stable 4. CAD with CABG - stable; on BBlocker, FADIA, ASA, and statin. On Plavix for hx of stent to cervical artery. 5. HTN - stable 6. Hyperlipidemia - on Statin 7. DM type 2 - managed by PCP SALLY reviewed Pt. seen and eval. by me. I agree with the A/P by the STITCH BONDING MACHINE DRAWER IN. Chest clear. RRR, mild edema Review of Systems - Review of Systems Constitutional: reports: no symptoms reported EENTM: reports: no symptoms reported Respiratory: reports: no symptoms reported Cardiac (ROS): reports: no symptoms reported ABD/GI: reports: no symptoms reported Musculoskeletal: reports: see HPI Skin: reports: no symptoms reported Neurological: reports: no symptoms reported
[2018-07-10] MEDS: Furosemide 40 MG TAB PO SCH ×2 (09:02→15:16)
[2018-07-10] MEDS: Carvedilol 3.125 MG TAB PO SCH ×2 (09:10→16:12)
[2018-07-10] MEDS: Clopidogrel Bisulfate 75 MG TAB PO SCH (09:11)
[2018-07-10] MEDS: Allopurinol 300 MG TAB PO SCH (09:11)
[2018-07-10] MEDS: Aspirin 81 mg Enteric Coated Tablet PO SCH (09:11)
[2018-07-10] MEDS: Colchicine 0.6 MG TAB PO SCH ×2 (09:12→20:06)
[2018-07-10] MEDS: Doxycycline 100 MG CAP PO SCH ×2 (09:12→20:06)
[2018-07-10] MEDS: Ezetimibe 10 MG TAB PO SCH (09:13)
[2018-07-10] MEDS: Famotidine 20 MG TAB PO SCH ×2 (09:15→20:06)
[2018-07-10] MEDS: Lisinopril 2.5 MG TAB PO SCH ×2 (09:15→20:06)
[2018-07-10] MEDS: Potassium Chloride 20 MEQ TAB PO SCH (09:16)
[2018-07-10] MEDS: HYDROcodone/Acetaminophen 5/325 mg Tablet PO PRN ×2 (09:17→16:10)
[2018-07-10] MEDS: Insulin Glargine 45 UNITS in Pre-Filled Syringe 1 EACH SC SCH (09:20)
[2018-07-10] MEDS: Enoxaparin Sodium 40 MG/0.4 ML SYRINGE SC SCH (09:22)
--- NOTE | 2018-07-10 11:09 | DIS ---
DATE OF ADMISSION: 07/08/2018 DATE OF DISCHARGE: 07/10/2018 PRIMARY CARE PHYSICIAN: Dr. Xavier Leonard. DISCHARGE DISPOSITION: Home. PRIMARY DISCHARGE DIAGNOSES: Acute on chronic combined systolic and diastolic heart failure, stage C; acute gouty attack with the right foot pain; demand ischemia of myocardium. SECONDARY DISCHARGE DIAGNOSES: Subclavian artery stenosis, severe tricuspid regurgitation, peripheral vascular disease, obesity with BMI of 35, moderate aortic stenosis, moderate aortic regurgitation, ischemic cardiomyopathy, hypertension, history of carotid artery stenosis, gout, chronic edema of her right lower extremity, diabetes type 2, coronary artery disease, normocytic normochromic anemia, combined systolic and diastolic heart failure. PRIMARY PROCEDURE/OPERATION: None. RADIOLOGICAL INVESTIGATION: X-ray chest showed no acute cardiopulmonary process other than pulmonary vascular congestion. The lower extremity CT scan showed soft tissue edema. CT angiography, negative for PE. SIGNIFICANT LABORATORY DATA: WBC 5.9, hemoglobin 11.1. D-dimer 0.80. Sodium 133, creatinine 0.87. LFT normal. Urinalysis, unremarkable. DISCHARGE MEDICATIONS: 1. Allopurinol 300 mg p.o. daily. 2. Lipitor 40 mg p.o. at bedtime. 3. Tessalon 100 mg q.8 hourly p.r.n. 4. Doxycycline 100 mg p.o. b.i.d. 5. Zetia 10 mg p.o. daily. 6. NovoLog 10 units subcu t.i.d. 7. Levemir 45 units subcu daily. 8. Potassium chloride 20 mEq p.o. daily. 9. Aspirin 81 mg daily. 10. Coreg 3.125 mg p.o. b.i.d. 11. Plavix 75 mg p.o. daily. 12. Colchicine 0.6 mg p.o. b.i.d. for 7 days. 13. Lasix 40 mg p.o. b.i.d. 14. Lisinopril 2.5 mg p.o. b.i.d. CONTRAINDICATION: None. CODE STATUS: Full code. INPATIENT SCREENING TECH: Dr. Soto was following while in hospital. TEST RESULT PENDING ON DISCHARGE: None. ALLERGIES: PENICILLIN. DISCHARGE PLAN: Posthospital, the patient has appointment with Dr. More on August 03, 2018 at 9:45 a.m. HOSPITAL COURSE: A 73-year-old female, who was admitted by me. Please see my HPI for further details. She was presented with increasing shortness of breath, edema of lower extremity, and right foot pain. Her right foot pain was related with gouty attack, which was improved with colchicine. She was also presented with acute congestive heart failure exacerbation, required Lasix therapy while in the hospital. She had elevated troponin and that is why Cardiology was following while in the hospital. At this point, Cardiology changed all medications to p.o. and they are okay with discharging her home because the patient has approached to euvolemic state. Regarding right foot, we advised her to finish doxycycline, which was prescribed by primary care physician and we prescribed colchicine for 7 to 10 days. The patient will need outpatient followup with Cardiology, primary care physician, [facility]. The patient is seen and examined at bedside today. All vital signs are negative. All review of system reviewed and negative. Her examination is unchanged. She does have a murmur of aortic regurgitation, tricuspid regurgitation, and aortic stenosis. Her edema has significantly improved and her pain in the right foot, especially right great toe has also improvement. Job ID: [id number]
[2018-07-10 14:16] VITALS: BMI 35.5
[2018-07-10 16:38] LABS: Vancomycin, Trough 16.4 ug/mL
[2018-07-10] MEDS ORDERED: Vancomycin HCl 1.75 GM in Sodium Chloride 0.9% 500 ML IVPB SCH ×2 (17:00→20:00)
[2018-07-10] MEDS: Atorvastatin Calcium 40 MG TAB PO SCH (20:06)
[2018-07-11] MEDS: HYDROcodone/Acetaminophen 5/325 mg Tablet PO PRN ×2 (01:57→08:14)
[2018-07-11] MEDS: Ezetimibe 10 MG TAB PO SCH (08:18)
[2018-07-11] MEDS: Clopidogrel Bisulfate 75 MG TAB PO SCH (08:18)
[2018-07-11] MEDS: Colchicine 0.6 MG TAB PO SCH (08:19)
[2018-07-11] MEDS: Lisinopril 2.5 MG TAB PO SCH (08:19)
[2018-07-11] MEDS: Allopurinol 300 MG TAB PO SCH (08:19)
[2018-07-11] MEDS: Potassium Chloride 20 MEQ TAB PO SCH (08:19)
[2018-07-11] MEDS: Doxycycline 100 MG CAP PO SCH (08:19)
[2018-07-11] MEDS: Famotidine 20 MG TAB PO SCH (08:19)
[2018-07-11] MEDS: Enoxaparin Sodium 40 MG/0.4 ML SYRINGE SC SCH (08:20)
[2018-07-11] MEDS: Carvedilol 3.125 MG TAB PO SCH (08:20)
[2018-07-11] MEDS: Aspirin 81 mg Enteric Coated Tablet PO SCH (08:20)
[2018-07-11] MEDS: Furosemide 40 MG TAB PO SCH ×2 (08:20→13:58)
[2018-07-11] MEDS: Insulin Glargine 45 UNITS in Pre-Filled Syringe 1 EACH SC SCH (10:52)
[2018-07-11 11:52] VITALS: TEMP 98.4
--- NOTE | 2018-07-11 12:04 | DIS ---
DATE OF ADMISSION: 07/08/2018 DATE OF DISCHARGE: 07/11/2018 ADDENDUM: Please see my discharge summary dictated yesterday. There is no change in my discharge summary. Somehow, this patient was not able to go home yesterday. Please see my progress note from today for further detail. Job ID: [id number]
--- NOTE | 2018-07-11 12:11 | PDOC.PN ---
- Subjective Encounter Start Date: 07/11/18 Encounter Start Time: 07:00 - Objective Resuscitation Status - Order Detail: 07/08/18 11:22 Resuscitation Status Routine Resuscitation Status: FULL: Full Resuscitation MAR Reviewed: Yes Vital Signs & Weight: Vital Signs (12 hours) Temp Pulse Resp BP Pulse Ox 07/11/18 11:49 98.4 F 69 16 127/60 93 L 07/11/18 08:35 96 07/11/18 07:20 97.8 F 89 18 113/50 L 96 07/11/18 03:42 97.8 F 69 18 98/49 L 93 L Weight Admit Weight 200 lb 3.2 oz Weight 201 lb 1 oz I&O: 07/10/18 07/11/18 07/12/18 06:59 06:59 06:59 Intake Total 1208 200 Output Total 2375 250 Balance -1167 -50 Result Diagrams: 07/09/18 04:56 07/09/18 04:56 Additional Labs: Accuchecks 07/11/18 07/11/18 07/10/18 09:59 06:06 20:14 POC Glucose 93 86 161 H 07/10/18 16:44 POC Glucose 147 H EKG Reviewed by me: Yes Phys Exam - Physical Examination Constitutional: NAD HEENT: PERRLA, moist MMs, sclera anicteric Neck: no JVD, supple Respiratory: no wheezing, no rales, no rhonchi Cardiovascular: RRR, no significant murmur, no rub Gastrointestinal: soft, non-tender, no distention, positive bowel sounds Musculoskeletal: no edema, pulses present Neurological: non-focal, normal sensation Lymphatic: no nodes Psychiatric: normal affect, A&O x 3 Skin: no rash, normal turgor Dx/Plan (1) Acute on chronic combined systolic and diastolic ACC/AHA stage C congestive heart failure Code(s): I50.43 - ACUTE ON CHRONIC COMBINED SYSTOLIC AND DIASTOLIC HRT FAIL Status: Acute (2) Demand ischemia Code(s): I24.8 - OTHER FORMS OF ACUTE ISCHEMIC HEART DISEASE Status: Acute (3) Right foot pain Code(s): M79.671 - PAIN IN RIGHT FOOT Status: Acute (4) Anemia, normocytic normochromic Code(s): D64.9 - ANEMIA, UNSPECIFIED Status: Chronic (5) CAD (coronary artery disease) Code(s): I25.10 - ATHSCL HEART DISEASE OF [place] CORONARY ARTERY W/O ANG PCTRS Status: Chronic (6) DMII (diabetes mellitus, type 2) Status: Chronic (7) Edema of right lower extremity Code(s): R60.0 - LOCALIZED EDEMA Status: Chronic Comment: (8) Gouty arthropathy Code(s): M10.9 - GOUT, UNSPECIFIED Status: Chronic Comment: (9) H/O carotid artery stenosis Code(s): Z86.79 - PERSONAL HISTORY OF OTHER DISEASES OF THE CIRCULATORY SYSTEM Status: Chronic (10) HTN (hypertension), benign Code(s): I10 - ESSENTIAL (PRIMARY) HYPERTENSION Status: Chronic (11) Ischemic cardiomyopathy Code(s): I25.5 - ISCHEMIC CARDIOMYOPATHY Status: Chronic Comment: EF 15-20% , AICD in place (12) Moderate aortic regurgitation with LV dilation by prior echocardiogram Code(s): I35.1 - NONRHEUMATIC AORTIC (VALVE) INSUFFICIENCY; I51.7 - CARDIOMEGALY Status: Chronic (13) Moderate aortic stenosis by prior echocardiogram Code(s): I35.0 - NONRHEUMATIC AORTIC (VALVE) STENOSIS Status: Chronic (14) Obesity (BMI 30-39.9) Code(s): E66.9 - OBESITY, UNSPECIFIED Status: Chronic (15) PAD (peripheral artery disease) Code(s): I73.9 - PERIPHERAL VASCULAR DISEASE, UNSPECIFIED Status: Chronic (16) Severe tricuspid regurgitation by prior echocardiogram Code(s): I07.1 - RHEUMATIC TRICUSPID INSUFFICIENCY Status: Chronic (17) Subclavian arterial stenosis Code(s): I77.1 - STRICTURE OF ARTERY Status: Chronic Comment: s/p B/L stenting 08/01/17 - Plan cont current plan of care * medication reviewed as below * symptomatic treatment * see discharge dayana. Review of Systems - Review of Systems ENT: negative: Ear Pain, Ear Discharge, Nose Pain, Nose Discharge, Nose Congestion, Mouth Pain, Mouth Swelling, Throat Pain, Throat Swelling, Other Respiratory: negative: Cough, Dry, Shortness of Breath, Hemoptysis, SOB with Excertion, Pleuritic Pain, Sputum, Wheezing Cardiovascular: negative: chest pain, palpitations, orthopnea, paroxysmal nocturnal dyspnea, edema, light headedness, other Gastrointestinal: negative: Nausea, Vomiting, Abdominal Pain, Diarrhea, Constipation, Melena, Hematochezia, Other Genitourinary: negative: Dysuria, Frequency, Incontinence, Hematuria, Retention , Other Musculoskeletal: negative: Neck Pain, Shoulder Pain, Arm Pain, Back Pain, Hand Pain, Leg Pain, Foot Pain, Other Skin: negative: Rash, Lesions, Alessandro, Bruising, Other - Medications/Allergies Allergies/Adverse Reactions: Allergies Allergy/AdvReac Type Severity Reaction Status Date / Time Penicillins Allergy Rash Verified 07/25/17 18:07 Medications: Current Medications Acetaminophen (Tylenol) 650 mg PO Q4H PRN PRN Reason: Headache/Fever/Mild Pain (1-3) Hydrocodone Bitart/Acetaminophen ([place] 5/325) 1 tab PO Q4H PRN PRN Reason: Moderate Pain (4-6) Last Admin: 07/11/18 08:14 Dose: 1 tab Allopurinol (Zyloprim) 300 mg PO DAILY [facility] Last Admin: 07/11/18 08:19 Dose: 300 mg Artificial Tears (Tears Naturale) 2 drop EA EYE PRN PRN PRN Reason: Dry Eyes Aspirin (Ecotrin) 81 mg PO DAILY [facility] Last Admin: 07/11/18 08:20 Dose: 81 mg Atorvastatin Calcium (Lipitor) 40 mg PO HS [facility] Last Admin: 07/10/18 20:06 Dose: 40 mg Bisacodyl (Dulcolax) 10 mg VT DAILYPRN PRN PRN Reason: Constipation Calcium Carbonate (Tums) 1,000 mg PO Q4H PRN PRN Reason: Heartburn or Indigestion Carvedilol (Coreg) 3.125 mg PO BID-[facility] Last Admin: 07/11/18 08:20 Dose: 3.125 mg Clopidogrel Bisulfate (Plavix) 75 mg PO DAILY [facility] Last Admin: 07/11/18 08:18 Dose: 75 mg Colchicine (Colcrys) 0.6 mg PO BID [facility] Last Admin: 07/11/18 08:19 Dose: 0.6 mg Dextrose/Water (Dextrose 50%) 25 gm SLOW IVP PRN PRN PRN Reason: Hypoglycemia Doxycycline Hyclate (Vibramycin) 100 mg PO BID [facility] Last Admin: 07/11/18 08:19 Dose: 100 mg Ezetimibe (Zetia) 10 mg PO DAILY [facility] Last Admin: 07/11/18 08:18 Dose: 10 mg Emollient Cream (Hydrocerin Cream) 0 gm TOP BIDPRN PRN PRN Reason: Dry Skin Enoxaparin Sodium (Lovenox) 40 mg SC 0900 [facility] Last Admin: 07/11/18 08:20 Dose: 40 mg Famotidine (Pepcid) 20 mg PO BID [facility] Last Admin: 07/11/18 08:19 Dose: 20 mg Furosemide (Lasix) 40 mg PO 0900,1400 [facility] Last Admin: 07/11/18 08:20 Dose: 40 mg Glucagon (Glucagon) 1 mg IM PRN PRN PRN Reason: Hypoglycemia Guaifenesin (Robitussin Sf) 200 mg PO Q4H PRN PRN Reason: Cough Last Admin: 07/09/18 08:29 Dose: 200 mg Hydralazine HCl (Apresoline) 10 mg SLOW IVP Q4H PRN PRN Reason: SBP > 180 and HR < 70 Dextrose/Water (D5w) 1,000 mls @ 0 mls/hr IV .Q0M PRN PRN Reason: Hypoglycemia Insulin Glargine 45 units/ (Miscellaneous Medication) 0.45 mls @ 0 mls/hr SC QAM [facility] Last Admin: 07/11/18 10:52 Dose: Not Given Vancomycin HCl 1.75 gm/ Sodium (Chloride) 500 mls @ 250 mls/hr IVPB 2000 [facility] Last Admin: 07/10/18 20:07 Dose: 500 mls Insulin Human Lispro (Humalog) 0 units SC .MODERATE SLIDING SC PRN PRN Reason: Moderate Correctional Scale Last Admin: 07/09/18 18:31 Dose: 4 units Insulin Human Lispro (Humalog) 0 units SC .BEDTIME SLIDING SC PRN PRN Reason: Bedtime Correctional Scale Last Admin: 07/09/18 05:34 Dose: 2 unit Ketorolac Tromethamine (Toradol) 15 mg IVP Q6H PRN PRN Reason: Pain Stop: 07/13/18 15:18 Lisinopril (Zestril) 2.5 mg PO BID [facility] Last Admin: 07/11/18 08:19 Dose: 2.5 mg Loperamide HCl (Imodium) 2 mg PO PRN PRN PRN Reason: Diarrhea/Loose Stools Loratadine (Claritin) 10 mg PO DAILYPRN PRN PRN Reason: Sinus Symptoms Miscellaneous Medication (Pharmacy To Dose) 1 each IVPB PRN PRN PRN Reason: Pharmacy to dose Nitroglycerin (Nitrostat) 0.4 mg SL Q5MIN PRN PRN Reason: Chest Pain Ondansetron HCl (Zofran Odt) 4 mg PO Q6H PRN PRN Reason: Nausea/Vomiting Ondansetron HCl (Zofran) 4 mg IVP Q6H PRN PRN Reason: Nausea/Vomiting Last Admin: 07/09/18 09:25 Dose: 4 mg Potassium Chloride (K-Dur) 20 meq PO DAILY [facility] Last Admin: 07/11/18 08:19 Dose: 20 meq Senna/Docusate Sodium (Senokot S) 2 tab PO BID PRN PRN Reason: Constipation Sodium Chloride ([employer] Nasal [place] 0.65%) 0 ml EA NARE QIDPRN PRN PRN Reason: Nasal Congestion Sodium Chloride (Flush - Normal Saline) 10 ml IVF Q12HR [facility] Last Admin: 07/11/18 09:52 Dose: 10 ml Sodium Chloride (Flush - Normal Saline) 10 ml IVF PRN PRN PRN Reason: Saline Flush Throat Lozenges (Cepastat Lozenges) 1 [place] PO Q2H PRN PRN Reason: Sore Throat Zolpidem Tartrate (Ambien) 5 mg PO HSPRN PRN PRN Reason: Insomnia
--- NOTE | 2018-07-11 13:03 | PDOC.CTH ---
Cardiology Progress Note - Subjective The pt seen and examined. No overnight events. No cardiac complaints. - Objective Vital Signs Temp Pulse Resp BP Pulse Ox 07/11/18 11:49 98.4 F 69 16 127/60 93 L 07/11/18 08:35 96 07/11/18 07:20 97.8 F 89 18 113/50 L 96 07/11/18 03:42 97.8 F 69 18 98/49 L 93 L Admit Weight 200 lb 3.2 oz Weight 201 lb 1 oz 07/10/18 07/11/18 07/12/18 06:59 06:59 06:59 Intake Total 1208 200 Output Total 2375 250 Balance -1167 -50 - Physical Examination General/Neuro: alert & oriented x3 Neck: no JVD present Lungs: CTA Heart: RRR Abdomen: soft Extremities: other: (swelling BLE, more to Rt 1st toe) - Telemetry Telemetry Rhythm: SR 70s - Labs Result Diagrams: 07/09/18 04:56 07/09/18 04:56 Troponin/CKMB CK-MB (CK-2) 1.7 ng/mL (0-6.6) 07/08/18 09:16 Troponin I 0.286 ng/mL (< 0.028) H 07/08/18 15:26 - Assessment/Plan 1. Acute on chronic systolic heart failure - stable with Lasix 40mg PO BID; On FADIA and BBlocker. . 2. Foot pain, curently being treated for both cellulitis and gout - The pt may need steroid for gout, which improved her symptoms at last admission. The pt will f/u with Flexo Press Operator as outpt 3. Severe Dilated CM EF at 10-15% with AICD placement - stable 4. CAD with CABG - stable; on BBlocker, FADIA, ASA, and statin. On Plavix for hx of stent to cervical artery. 5. HTN - stable 6. Hyperlipidemia - on Statin 7. DM type 2 - managed by PCP SALLY butler * From cardiac standpoint, the pt is stable to d/c home. The pt will f/u with Dr More' office within 4 wks. Pt. seen and eval. by me. I agree with the A/P by the GASOLINE ENGINE INSPECTOR. Chest clear. RRR, mild edema . Pain in right great toe, ankle. Review of Systems - Review of Systems Constitutional: reports: no symptoms reported EENTM: reports: no symptoms reported Respiratory: reports: no symptoms reported Cardiac (ROS): reports: no symptoms reported ABD/GI: reports: no symptoms reported : reports: no symptoms reported Musculoskeletal: reports: gout
[2018-07-11 16:05] VITALS: BP 112/54
== END 2018-07-11 15:04 | disposition home health service (06) | DRG 292 ==
LOC: ERS 08:23 → 2NO 10:31
PROVIDERS: ADMIT Internal Medicine; ATTEND Internal Medicine
DX: I11.0 Hypertensive heart disease with heart failure (principal); I24.8 Other forms of acute ischemic heart disease; I50.43 Acute on chronic combined systolic (congestive) and diastolic (congestive) heart failure; M10.9 Gout, unspecified; I08.2 Rheumatic disorders of both aortic and tricuspid valves; I77.1 Stricture of artery; I73.9 Peripheral vascular disease, unspecified; E66.9 Obesity, unspecified; I25.5 Ischemic cardiomyopathy; E11.9 Type 2 diabetes mellitus without complications; I25.10 Atherosclerotic heart disease of native coronary artery without angina pectoris; D64.9 Anemia, unspecified; R60.0 Localized edema; Z68.35 Body mass index [BMI] 35.0-35.9, adult; Z88.0 Allergy status to penicillin; Z95.1 Presence of aortocoronary bypass graft; Z90.710 Acquired absence of both cervix and uterus; Z98.890 Other specified postprocedural states; Z87.891 Personal history of nicotine dependence; Z79.82 Long term (current) use of aspirin; Z79.899 Other long term (current) drug therapy; Z79.02 Long term (current) use of antithrombotics/antiplatelets; Z79.4 Long term (current) use of insulin; Z86.79 Personal history of other diseases of the circulatory system
CPT/HCPCS: 36415; 36416; 71045; 71275; 80053; 80202; 81001; 82553; 83735; 83880; 84443; 84484; 84550; 85025; 85379; 86140; 90471; 90662; 93005; 93798; 96372; G0008; J1650; J1825; J1885; J1940; J2405; J3370; J7050; Q0162; Q9967

== ENCOUNTER 2018-07-27 16:54 | Inpatient (IN) | payer MEDICARE, MEDICAID ==
[~2018-07-27 16:54] MED LIST: ISOVUE-370 76%-LOCM 1 ML ONE
[2018-07-27 17:55] LABS: #Lymphocytes 0.8 thou/uL (1.20-3.40); #Monocytes 0.5 thou/uL (0.11-0.59); #Neutrophils 2.9 thou/uL (1.40-6.50); %Basophils 0.9 % (0.0-1.0); %Eosinophils 0.1 % (0.0-10.0); %Lymphocytes 18.4 % (21.0-51.0); %Monocytes 11.9 % (0.0-10.0); %Neutrophils 68.6 % (42.0-75.0); Hemoglobin 11.4 g/dL (12.0-16.0); Mean Corpuscular HGB CONC 30.7 g/dL (32.0-36.0); Mean Corpuscular Volume 97.8 fL (78.0-98.0); Mean Platelet Volume 9.2 fL (7.4-10.4); Platelet Count 167 thou/uL (130-400); RBC Distribution Width 16.4 % (11.5-14.5); White Blood Cell (WBC) Count 4.3 thou/uL (4.8-10.8)
[2018-07-27 18:18] LABS: ALT (SGPT) 15 U/L (8-55); AST (SGOT) 49 U/L (5-34); Albumin 3.6 g/dL (3.4-4.8); Alkaline Phosphatase 112 U/L (40-150); Anion Gap 19 mmol/L (10-20); BUN (Urea Nitrogen) 14 mg/dL (9.8-20.1); Bilirubin, Total 3.1 mg/dL (0.2-1.2); Calc. Creatinine Clearance 0 mL/min (70-130); Calcium 9.5 mg/dL (7.8-10.44); Carbon Dioxide 23 mmol/L (23-31); Chloride 97 mmol/L (98-107); Estimated GFR-MDRD 57; Globulin 3.7 g/dL (2.4-3.5); Glucose 115 mg/dL (83-110); Lipase 5 U/L (8-78); Potassium 3.8 mmol/L (3.5-5.1); Protein, Total 7.3 g/dL (6.0-8.3); Sodium 135 mmol/L (136-145)
[2018-07-27 18:53] LABS: CKMB 25.6 ng/mL (0-6.6)
[2018-07-27] MEDS ORDERED: Aspirin Chewable 81 MG TAB ONE (18:57)
[2018-07-27] MEDS ORDERED: Nitroglycerin 2% Ointment 1 INCH/1 GM Packet ONE (18:57)
[2018-07-27] MEDS ORDERED: Enoxaparin Sodium 80 MG/0.8 ML SYRINGE ONE (19:08)
[2018-07-27] MEDS ORDERED: Ondansetron ODT 4 MG TAB PO PRN (20:41)
[2018-07-27] MEDS ORDERED: Ondansetron PF 4 MG/2 ML Vial IVP PRN (20:41)
[2018-07-27] MEDS ORDERED: Acetaminophen 325 MG TAB PO PRN (20:41)
--- NOTE | 2018-07-27 21:19 | CT ---
CT ANGIO CHEST WITH INTRAVENOUS CONTRAST WITH 3D RECONSTRUCTIONS: HISTORY: Shortness of breath. Chest pain. COMPARISON: 07/08/2018 FINDINGS: There are small bilateral pleural effusions noted. There is linear atelectasis in the lung bases. N o infiltrative process. The thoracic aorta is normal in caliber. There is a dilated appearance to the main pulmonary outflow tract. There is no CT evidence for pulmo nary embolus. Postop sternotomy changes are noted. A gallstone is incidentally seen. There is some reflux of contrast into the IVC and hepatic veins. IMPRESSION: 1. No CT evidence for pulmonary embolus. 2. Prominent main pulmonary outflow tract. Correlation with echocardiogram would be suggested. POS: [facility]
[2018-07-27] MEDS ORDERED: Dextrose 5% in Water 1,000 ML IV PRN (21:45)
[2018-07-27] MEDS ORDERED: Dextrose 50% Abboject 50 ML SYRINGE SLOW IVP PRN (21:45)
[2018-07-27 21:47] LABS: CKMB 32.4 ng/mL (0-6.6)
--- NOTE | 2018-07-27 23:01 | HP ---
PRIMARY CARE PHYSICIAN: Dr. Giorgi Cardoza. CODE STATUS: Full code. TIME OF EVALUATION: 8 p.m. CHIEF COMPLAINT: Nausea, vomiting, and diarrhea. HISTORY OF PRESENT ILLNESS: This is a 73-year-old female patient with past medical history of CHF, AICD, coronary artery disease due to previous [place], diabetes on insulin, hyperlipidemia, hypertension, came to the hospital after having episodes of nausea, vomiting and diarrhea. Symptoms have been present for the past 3 days with no clear triggers and no alleviating factors. Symptoms have been continuously getting worse, they were reported as severe. The patient reported being unable to hold anything down. REVIEW OF SYSTEMS: CONSTITUTIONAL: No fever or generalized weakness. RESPIRATORY: No cough, sputum production or shortness of breath. CARDIOVASCULAR: No chest pain or palpitation. GASTROINTESTINAL: The patient has nausea, vomiting, diarrhea and abdominal pain. VACUUM FURNACE OPERATOR: No dizziness, headache or feeling lightheaded. GENITOURINARY: No burning on urination. EXTREMITIES: No leg swelling. All other systems were reviewed and negative except for the findings mentioned above. PAST MEDICAL HISTORY: Positive and was mentioned in the HPI. FAMILY HISTORY: Reviewed and non contributory to current presentation. PAST SURGICAL HISTORY: CABG of four vessels in 2002, left-sided carotid endarterectomy in 2001, and hysterectomy. PSYCHIATRIC HISTORY: No previous psych history. SOCIAL HISTORY: The patient is a former tobacco user. She lives with family at home. KNOWN ALLERGIES: To penicillin. REPORTED MEDICATION: 1. Atorvastatin. 2. Ranitidine. 3. Lasix. 4. Lisinopril. 5. Hydrochlorothiazide. 6. Metoprolol. 7. Zetia. 8. Aspirin. PHYSICAL EXAMINATION: VITAL SIGNS: On presentation, blood pressure of 112/63 with heart rate of 101, respiratory rate of 20, and temperature of 98.2. Pain is 7/10, it is abdominal. Oxygen saturation 93%. GENERAL APPEARANCE: The patient is alert, oriented, in no acute distress. HEENT: Eyes, normal conjunctivae. Moist oral mucosa. Anicteric. No JVD. RESPIRATORY: Bilateral air entry. No rales. No wheezing. Symmetric expansion. CARDIOVASCULAR: Normal rate, regular rhythm. No murmurs. No gallop. No edema. ABDOMEN: Soft. Normal bowel sounds. MUSCULOSKELETAL: Baseline range of motion and strength. No tenderness. SKIN: Warm and intact. No pallor. No rash. No redness. Peripheral pulses are present. Capillary refill seems to be intact. NEUROLOGIC: No evidence of any new focal weakness. Baseline speech. Cranial nerves seems to be intact. PSYCHIATRIC: Good mood. No anxiety. Optimal judgment. DIAGNOSTIC DATA: EKG, normal sinus rhythm at the rate of 96, MD 156, QRS 96, and QT corrected 457. In the EKG, the patient has left ventricular hypertrophy with some repolarization abnormalities. There are marked ST depressions in lateral leads. These findings are present in previous EKGs. This was discussed with the performing physician from the ER. LABORATORY DATA: The labs were reviewed. The patient has white count of 4.3, hemoglobin of 9.4, MCV of 97.8, platelet count of 167 with D-dimer of 1.12. Sodium of 135, potassium of 3.8, chloride of 97, carbon dioxide of 23, anion gap of 19 , BUN of 14, creatinine of 1.14, GFR of 57, glucose of 115, and calcium of 9.5. Total bilirubin of 3.1, AST of 49, alkaline phosphatase of 112, and CK-MB of 25. Troponin initial was 5.2, second one 9.320. Beta-natriuretic peptide 6219. Globulin 3.7. Albumin to globulin ratio is 1.0. Lipase 5. ASSESSMENT AND PLAN: The patient will be placed in the hospital for follow medical problems: 1. Non-ST elevation myocardial infarction. The patient has troponin of 5.2, second 9.3. Probably, nausea and vomiting on presentation was related to acute myocardial infarction, the patient had received Lovenox and aspirin. We are adding FADIA inhibitors, beta-blockers, statin. We will consult Cardiology, likely to go for cardiac cath in the morning. 2. Nausea and vomiting. We will treat symptomatically. We will monitor. 3. History of congestive heart failure, this problem is chronic, seems to be stable at this point, no significant symptoms. We will reconcile home medications. We will adjust treatment as needed. 4. Diabetes, is controlled, we will place the patient on sliding scale for optimal control. 5. Leukopenia. White count 4.3. This seems to be nonspecific. We will monitor , we will treat accordingly. 6. Deep venous thrombosis prophylaxis. The patient is receiving full-dose Lovenox. Job ID: [id number] [facility]
[2018-07-27] MEDS: Atorvastatin Calcium 40 MG TAB PO SCH (23:19)
[2018-07-27] MEDS: Lisinopril 2.5 MG TAB PO SCH (23:19)
[2018-07-28 01:05] LABS: CKMB 37.1 ng/mL (0-6.6)
[2018-07-28 06:11] LABS: Anion Gap 15 mmol/L (10-20); BUN (Urea Nitrogen) 14 mg/dL (9.8-20.1); Calc. Creatinine Clearance 56 mL/min (70-130); Calcium 9.1 mg/dL (7.8-10.44); Carbon Dioxide 26 mmol/L (23-31); Chloride 99 mmol/L (98-107); Estimated GFR-MDRD 56; Glucose 104 mg/dL (83-110); Potassium 3.4 mmol/L (3.5-5.1); Sodium 137 mmol/L (136-145)
[2018-07-28 06:44] LABS: Anisocytosis SLIGHT = 6-15 cells (100X) (0-5/hpf); Band 5 % (5-11); Elliptocytes SLIGHT = 2-5 cells (100X) (0-1/hpf); Hemoglobin 10.2 g/dL (12.0-16.0); Lymphocytes 36 % (21-51); MDiff Complete? YES; Mean Corpuscular HGB CONC 31.6 g/dL (32.0-36.0); Mean Corpuscular Volume 98.2 fL (78.0-98.0); Mean Platelet Volume 9.9 fL (7.4-10.4); Monocytes 21 % (0-10); Neutrophil 38 % (42-75); Platelet Clumps MARKED; Platelet Count 131 thou/uL (130-400); RBC Distribution Width 16.3 % (11.5-14.5); White Blood Cell (WBC) Count 3.8 thou/uL (4.8-10.8)
[2018-07-28] MEDS: Allopurinol 300 MG TAB PO SCH (08:27)
[2018-07-28] MEDS: Carvedilol 3.125 MG TAB PO SCH ×2 (08:27→17:20)
[2018-07-28] MEDS: Furosemide 40 MG TAB PO SCH ×2 (08:27→15:35)
[2018-07-28] MEDS: Ezetimibe 10 MG TAB PO SCH (08:27)
[2018-07-28] MEDS: Lisinopril 2.5 MG TAB PO SCH ×2 (08:27→20:56)
[2018-07-28] MEDS: Clopidogrel Bisulfate 75 MG TAB PO SCH (08:27)
[2018-07-28] MEDS: Aspirin 325 mg Enteric Coated Tablet PO SCH (08:27)
[2018-07-28] MEDS: Enoxaparin Sodium 80 MG/0.8 ML SYRINGE SC SCH ×2 (08:37→20:55)
[2018-07-28 18:40] LABS: Critical Call Chem Troponin I RESULT DECREASING; Troponin I 15.486 ng/mL (< 0.028)
[2018-07-28] MEDS: Atorvastatin Calcium 40 MG TAB PO SCH (20:56)
--- NOTE | 2018-07-28 21:09 | PDOC.PN ---
- Subjective Encounter Start Date: 07/28/18 Encounter Start Time: 09:00 Subjective: pt up in bed states she has been having n/v and diarrhea for 2 days -: she also started to have cp so she came in to the hospital. -: currently she is chest pain free - Objective Resuscitation Status - Order Detail: 07/27/18 20:41 Resuscitation Status Routine Resuscitation Status: FULL: Full Resuscitation Vital Signs & Weight: Vital Signs (12 hours) Temp Pulse Resp BP Pulse Ox 07/28/18 20:56 74 07/28/18 15:58 97.7 F 74 18 110/54 L 100 07/28/18 12:00 97.5 F L 78 17 116/58 L 97 Weight Weight 178 lb I&O: 07/27/18 07/28/18 07/29/18 06:59 06:59 06:59 Intake Total 120 480 Output Total 400 300 Balance -280 180 Result Diagrams: 07/28/18 05:02 07/28/18 05:02 Additional Labs: Accuchecks 07/28/18 07/28/18 07/28/18 20:28 16:26 10:50 POC Glucose 186 H 147 H 99 07/28/18 05:32 POC Glucose 108 Phys Exam - Physical Examination Respiratory: no wheezing, no rales, no rhonchi, wheezing present, clear to auscultation bilateral systolic murmur to the RSB radiating to carotid artery Gastrointestinal: soft, non-tender, no distention, positive bowel sounds Musculoskeletal: no edema, pulses present, edema present Dx/Plan (1) NSTEMI (non-ST elevated myocardial infarction) Code(s): I21.4 - NON-ST ELEVATION (NSTEMI) MYOCARDIAL INFARCTION Status: Acute (2) CAD (coronary artery disease) Code(s): I25.10 - ATHSCL HEART DISEASE OF [place] CORONARY ARTERY W/O ANG PCTRS Status: Chronic (3) DMII (diabetes mellitus, type 2) Status: Chronic (4) HTN (hypertension), benign Code(s): I10 - ESSENTIAL (PRIMARY) HYPERTENSION Status: Chronic - Plan pt's n/v/d has resolved. Her trops are elevated and is on statin/asa and AC -: per cardio she is not a candidate for any intervention given her -: significant atherosclerosis. -: pallative care consulted * . Review of Systems - Review of Systems Respiratory: negative: Cough, Dry, Shortness of Breath, Hemoptysis, SOB with Excertion, Pleuritic Pain, Sputum, Wheezing Cardiovascular: negative: chest pain, palpitations, orthopnea, paroxysmal nocturnal dyspnea, edema, light headedness, other Gastrointestinal: negative: Nausea, Vomiting, Abdominal Pain, Diarrhea, Constipation, Melena, Hematochezia, Other - Medications/Allergies Allergies/Adverse Reactions: Allergies Allergy/AdvReac Type Severity Reaction Status Date / Time Penicillins Allergy Rash Verified 07/27/18 22:55 Medications: Current Medications Acetaminophen (Tylenol) 650 mg PO Q4H PRN PRN Reason: Headache/Fever/Mild Pain (1-3) Allopurinol (Zyloprim) 300 mg PO DAILY [facility] Last Admin: 07/28/18 08:27 Dose: 300 mg Aspirin (Ecotrin) 325 mg PO DAILY [facility] Last Admin: 07/28/18 08:27 Dose: 325 mg Atorvastatin Calcium (Lipitor) 40 mg PO HS [facility] Last Admin: 07/28/18 20:56 Dose: 40 mg Carvedilol (Coreg) 3.125 mg PO BID-WM [facility] Last Admin: 07/28/18 17:20 Dose: 3.125 mg Clopidogrel Bisulfate (Plavix) 75 mg PO DAILY [facility] Last Admin: 07/28/18 08:27 Dose: 75 mg Dextrose/Water (Dextrose 50%) 25 gm SLOW IVP PRN PRN PRN Reason: Hypoglycemia Ezetimibe (Zetia) 10 mg PO DAILY [facility] Last Admin: 07/28/18 08:27 Dose: 10 mg Enoxaparin Sodium (Lovenox) 80 mg SC 0900,2100 [facility] Last Admin: 07/28/18 20:55 Dose: 80 mg Furosemide (Lasix) 40 mg PO 0900,1400 [facility] Last Admin: 07/28/18 15:35 Dose: 40 mg Glucagon (Glucagon) 1 mg IM PRN PRN PRN Reason: Hypoglycemia Dextrose/Water (D5w) 1,000 mls @ 0 mls/hr IV .Q0M PRN PRN Reason: Hypoglycemia Insulin Human Lispro (Humalog) 0 units SC .MILD SLIDING SCALE PRN PRN Reason: Mild Correctional Scale Lisinopril (Zestril) 2.5 mg PO BID [facility] Last Admin: 07/28/18 20:56 Dose: 2.5 mg Ondansetron HCl (Zofran Odt) 4 mg PO Q6H PRN PRN Reason: Nausea/Vomiting Ondansetron HCl (Zofran) 4 mg IVP Q6H PRN PRN Reason: Nausea/Vomiting
--- NOTE | 2018-07-29 00:11 | CON ---
DATE OF CONSULTATION: 07/28/2018 INDICATION FOR CONSULTATION: A 73-year-old female with diffuse severe coronary artery disease, status post bypass surgery. She was admitted due to nausea, vomiting, shortness of breath and not feeling well. She had some diarrhea. When she was admitted, she was noted to have increased cardiac enzymes. She has diffuse peripheral vascular disease also. She has undergone bilateral stent placements to the subclavians. She has had a right carotid endarterectomy performed. She has a totally occluded left common iliac. Her last cardiac catheterization, I believe this was in 2015. She had bypass surgery in 2002. Her last cardiac catheterization showed totally occluded saphenous vein graft to the right coronary artery with severe disease in the right coronary artery. She did have a patent saphenous vein graft to the left anterior descending artery with a 50% stenosis just at the distal portion of the graft. She also had an end-to-side graft arising from this vein graft, which then approached the left circumflex, which she also had an 80% stenosis in the saphenous vein graft. This fed into a left circumflex, which was less than 1 mm in diameter. The distal left anterior descending artery was approximately 2 to 2.5 mm in diameter. The [place] left anterior descending artery had an ostial stenosis about 80-90 percent. The left circumflex was 100% occluded. Her ejection fraction has been severely compromised for quite some time now. Her ejection fraction is somewhere in the 15-20 percent range and she has an AICD, which has been implanted sometime back. She did smoke in the past and has diabetes. She had a 20 pack-year history of smoking, but stopped smoking in 1995. She has no alcohol use, but again presents with nausea, vomiting, and diarrhea, which may have provoked the elevation of the cardiac enzymes due to another non ST-segment elevation myocardial infarction. There is very little further intervention that can be performed on this lady. Number one due to her poor access and severe peripheral vascular disease as well as her diffuse coronary artery disease. PAST MEDICAL HISTORY: Significant for: 1. Hypercholesterolemia. 2. Coronary disease. 3. Peripheral vascular disease. 4. Bypass surgery. 5. Bilateral subclavian artery stent placement. 6. Right carotid endarterectomy. 7. She has history of hypertension. 8. Diabetes. SOCIAL HISTORY: She lives at home. She has no further history of tobacco or alcohol use. FAMILY HISTORY: Positive for heart disease, but mainly at older age. ALLERGIES: SHE IS ALLERGIC TO PENICILLIN, WHICH CAUSES HER TO HAVE URTICARIA. MEDICATIONS: Her medications prior to admission included: 1. Atorvastatin. 2. Aspirin. 3. Insulin. 4. Ezetimibe. 5. Lisinopril. 6. Coreg. 7. Plavix. 8. Lasix. 9. Potassium. REVIEW OF SYSTEMS: Mainly she complains of the nausea and vomiting, which is improved since she has been in the hospital. She has been given some IV fluids, it appears to be somewhat improved. She denies any chest pain. She does have some shortness of breath, which is rather chronic. Otherwise, she also has some gout and cellulitis on her last admission involving the right lower extremity. This appears to have improved some. The edema has improved, but she still complains of having some pain in the right lower extremity on the lateral aspect and also has some tenderness in this area and some mild erythema. Otherwise, her review of systems has not changed significantly since her last admission, except for what is noted in the history of present illness. PHYSICAL EXAMINATION: GENERAL: Reveals an elderly female. Blood pressure is 110/56, respiratory rate 18, heart rate 72 and regular. She is afebrile. HEENT: Shows the head to be normocephalic and atraumatic. She does have bilateral carotid bruits noted. CHEST: Actually clear to auscultation. I did not hear any rales, rhonchi, or wheezing. CARDIOVASCULAR: Reveals a regular rate and rhythm at this time. I did not hear any significant murmurs, heaves, thrills, bruits, or rubs except over the aortic area where she does have some aortic stenosis. This has been relatively stable. She does also have some carotid artery stenosis, which has not been addressed on the opposite side from where she has already had the endarterectomy performed. On the right side, she did have a left carotid endarterectomy in 2001. She continues to have the aortic stenosis murmur. I did not hear an S3 nor an S4. ABDOMEN: Shows obesity with positive bowel sounds. EXTREMITIES: Show no clubbing or cyanosis. She did have some mild discoloration of the right lower extremity of foot with some evidence of previous edema with some wrinkling of the foot tissue and also she has some tenderness on the right lower extremity on the lateral aspect. I could not palpate pedal pulses nor could I palpate popliteal pulses. I could not palpate a left femoral pulse. She barely has a right femoral pulse, which is palpable and she also has a right femoral bruit. SKIN: Warm and dry. NEUROLOGIC: She appears to be relatively intact. LABORATORY DATA: [place] 6219. Her troponin I was 5.17 on admission, then increased to 9.3 and the last one was 15.9. I will repeat that to determine whether or not she continues to have elevation of the cardiac enzymes. Her MB is also increased from 25.6 up to 37.1, hemoglobin was 10.2, creatinine is 1.16. The potassium was 3.4, and blood sugar was 56. IMPRESSION: 1. Severe peripheral vascular disease in this lady who also has severe coronary artery disease. She has had bypass surgery. She has poor access. She has diffuse disease in small vessels. She is a very poor candidate for any further intervention. 2. Severe decrease in left ventricular systolic function with cardiomyopathy, ejection fraction of less than 20%. She has an automatic implantable cardioverter-defibrillator implant. 3. History of diabetes, this is to be dealt with by the primary care service. 4. History of hypercholesterolemia. Hopefully, she will be able to continue on her statin medications. At this time, I would continue definitely aggressive treatment in this lady with Lovenox as well as her beta blockers and angiotensin-converting enzyme inhibitors as tolerated. This is a very unfortunate situation for this lady who continues to have multiple problems, but from a cardiac standpoint, there may be little to offer other than medical management. Job ID: [id number]
[2018-07-29] MEDS: Allopurinol 300 MG TAB PO SCH (08:59)
[2018-07-29] MEDS: Carvedilol 3.125 MG TAB PO SCH ×2 (08:59→17:41)
[2018-07-29] MEDS: Ezetimibe 10 MG TAB PO SCH (09:00)
[2018-07-29] MEDS: Lisinopril 2.5 MG TAB PO SCH ×2 (09:00→21:11)
[2018-07-29] MEDS: Furosemide 40 MG TAB PO SCH ×2 (09:00→14:39)
[2018-07-29] MEDS: Enoxaparin Sodium 80 MG/0.8 ML SYRINGE SC SCH ×2 (09:00→21:11)
[2018-07-29] MEDS: Aspirin 325 mg Enteric Coated Tablet PO SCH (09:00)
[2018-07-29] MEDS: Clopidogrel Bisulfate 75 MG TAB PO SCH (09:00)
[2018-07-29 11:40] LABS: Anion Gap 17 mmol/L (10-20); BUN (Urea Nitrogen) 17 mg/dL (9.8-20.1); Calc. Creatinine Clearance 44 mL/min (70-130); Carbon Dioxide 24 mmol/L (23-31); Chloride 98 mmol/L (98-107); Estimated GFR-MDRD 43; Glucose 127 mg/dL (83-110); Magnesium 1.3 mg/dL (1.6-2.6); Phosphorus 3.1 mg/dL (2.3-4.7); Potassium 3.5 mmol/L (3.5-5.1); Sodium 135 mmol/L (136-145)
--- NOTE | 2018-07-29 14:05 | PDOC.PN ---
- Subjective Encounter Start Date: 07/29/18 Encounter Start Time: 10:15 Subjective: pt up in bed complains of pain to her right king area - Objective Resuscitation Status - Order Detail: 07/27/18 20:41 Resuscitation Status Routine Resuscitation Status: FULL: Full Resuscitation Vital Signs & Weight: Vital Signs (12 hours) Temp Pulse Resp BP Pulse Ox 07/29/18 11:52 97.5 F L 72 18 117/58 L 97 07/29/18 08:00 96 07/29/18 07:59 97.7 F 73 16 111/54 L 96 07/29/18 04:00 97.6 F 65 18 95/50 L 96 Weight Weight 174 lb I&O: 07/28/18 07/29/18 07/30/18 06:59 06:59 06:59 Intake Total 120 720 Output Total 400 800 Balance -280 -80 Result Diagrams: 07/28/18 05:02 07/29/18 11:10 Additional Labs: Accuchecks 07/29/18 07/29/18 07/28/18 10:28 05:37 20:28 POC Glucose 134 H 167 H 186 H 07/28/18 16:26 POC Glucose 147 H Phys Exam - Physical Examination Cardiovascular: RRR, no significant murmur, no rub, gallop, irregular Gastrointestinal: soft, non-tender, no distention, positive bowel sounds Musculoskeletal: edema present right ankle pain, mild erythema to right lateral ankle area Neurological: non-focal, normal sensation, moves all 4 limbs Dx/Plan (1) NSTEMI (non-ST elevated myocardial infarction) Code(s): I21.4 - NON-ST ELEVATION (NSTEMI) MYOCARDIAL INFARCTION Status: Acute (2) CAD (coronary artery disease) Code(s): I25.10 - ATHSCL HEART DISEASE OF [place] CORONARY ARTERY W/O ANG PCTRS Status: Chronic (3) DMII (diabetes mellitus, type 2) Status: Chronic (4) HTN (hypertension), benign Code(s): I10 - ESSENTIAL (PRIMARY) HYPERTENSION Status: Chronic - Plan will get right ankle doppler to rule out any soft tissue infection -: will put her on doxy -: conitnue asa/statin and AC for now * . Review of Systems - Review of Systems Respiratory: negative: Cough, Dry, Shortness of Breath, Hemoptysis, SOB with Excertion, Pleuritic Pain, Sputum, Wheezing Cardiovascular: negative: chest pain, palpitations, orthopnea, paroxysmal nocturnal dyspnea, edema, light headedness, other Gastrointestinal: negative: Nausea, Vomiting, Abdominal Pain, Diarrhea, Constipation, Melena, Hematochezia, Other - Medications/Allergies Allergies/Adverse Reactions: Allergies Allergy/AdvReac Type Severity Reaction Status Date / Time Penicillins Allergy Rash Verified 07/27/18 22:55 Medications: Current Medications Acetaminophen (Tylenol) 650 mg PO Q4H PRN PRN Reason: Headache/Fever/Mild Pain (1-3) Last Admin: 07/29/18 02:16 Dose: 650 mg Allopurinol (Zyloprim) 300 mg PO DAILY [facility] Last Admin: 07/29/18 08:59 Dose: 300 mg Aspirin (Ecotrin) 325 mg PO DAILY [facility] Last Admin: 07/29/18 09:00 Dose: 325 mg Atorvastatin Calcium (Lipitor) 40 mg PO HS [facility] Last Admin: 07/28/18 20:56 Dose: 40 mg Carvedilol (Coreg) 3.125 mg PO BID-[facility] Last Admin: 07/29/18 08:59 Dose: 3.125 mg Clopidogrel Bisulfate (Plavix) 75 mg PO DAILY [facility] Last Admin: 07/29/18 09:00 Dose: 75 mg Dextrose/Water (Dextrose 50%) 25 gm SLOW IVP PRN PRN PRN Reason: Hypoglycemia Doxycycline Hyclate (Vibramycin) 100 mg PO BID [facility] Ezetimibe (Zetia) 10 mg PO DAILY [facility] Last Admin: 07/29/18 09:00 Dose: 10 mg Enoxaparin Sodium (Lovenox) 80 mg SC 0900,2100 [facility] Last Admin: 07/29/18 09:00 Dose: 80 mg Furosemide (Lasix) 40 mg PO 0900,1400 [facility] Last Admin: 07/29/18 09:00 Dose: 40 mg Glucagon (Glucagon) 1 mg IM PRN PRN PRN Reason: Hypoglycemia Dextrose/Water (D5w) 1,000 mls @ 0 mls/hr IV .Q0M PRN PRN Reason: Hypoglycemia Insulin Human Lispro (Humalog) 0 units SC .MILD SLIDING SCALE PRN PRN Reason: Mild Correctional Scale Lisinopril (Zestril) 2.5 mg PO BID [facility] Last Admin: 07/29/18 09:00 Dose: 2.5 mg Ondansetron HCl (Zofran Odt) 4 mg PO Q6H PRN PRN Reason: Nausea/Vomiting Ondansetron HCl (Zofran) 4 mg IVP Q6H PRN PRN Reason: Nausea/Vomiting
--- NOTE | 2018-07-29 16:38 | ULT ---
LIMITED ULTRASOUND SOFT TISSUES RIGHT ANKLE: 07/29/18 HISTORY: Right ankle pain and swelling. FINDINGS: There is a small heterogeneous collection at the lateral right ankle in the region of the patient's p alpable abnormality. This area measures approximately 2.7 cm x 3.4 cm x 0.9 cm. Color flow evaluation does not demonstrate flow within this structure. IMPRESSION: Heterogeneous collection in the region of the patient's palpable abnormality of the lateral right ank le. Findings could represent a hematoma versus infection. POS: [facility]
--- NOTE | 2018-07-29 16:52 | PDOC.CTH ---
Cardiology Progress Note - Subjective The pt seen and examined. No overnight events. No cardiac complaints. She cont having mod-severe pain to RLE. - Objective Vital Signs Temp Pulse Resp BP Pulse Ox 07/29/18 16:25 97.5 F L 65 18 116/59 L 98 07/29/18 11:52 97.5 F L 72 18 117/58 L 97 07/29/18 08:00 96 07/29/18 07:59 97.7 F 73 16 111/54 L 96 Weight 174 lb 07/28/18 07/29/18 07/30/18 06:59 06:59 06:59 Intake Total 120 720 Output Total 400 800 Balance -280 -80 - Physical Examination General/Neuro: alert & oriented x3 Neck: no JVD present Lungs: CTA Heart: RRR Abdomen: soft Extremities: other: (No edema) - Telemetry Telemetry Rhythm: SR - Labs Result Diagrams: 07/31/18 06:11 07/31/18 06:11 Troponin/CKMB CK-MB (CK-2) 37.1 ng/mL (0-6.6) H* 07/28/18 00:06 Troponin I 15.486 ng/mL (< 0.028) H* 07/28/18 17:37 - Assessment/Plan 1. NSTEMI - cont. medical tx only for now 2/2 severe CAD with no access; 2. CAD w/ CABG - on ASA, BBlocker, and FADIA, and statin. On Plavix for hx of stent to cervical artery 3. Chronic systolic HF - stable 4. HTN - stable 5. Hyperlipidemia - on statin 6. Dm type 2 - managed by PCP 7. RLE pain - Plan for Rt ankle doppler to rule out any soft tissue infection MAR reviewed Pt. seen and eval. by me. I agree with the A/P by the CAR TRACER. Still complains of right lower leg pain. Chest clear. RRR. Review of Systems - Review of Systems Constitutional: reports: no symptoms reported EENTM: reports: no symptoms reported Respiratory: reports: no symptoms reported Cardiac (ROS): reports: no symptoms reported ABD/GI: reports: no symptoms reported : reports: no symptoms reported Musculoskeletal: reports: see HPI
[2018-07-29] MEDS ORDERED: Magnesium 2 GM/50 ML 2 GM in Premix Bag 1 BAG IVPB SCH (17:15)
[2018-07-29] MEDS: Atorvastatin Calcium 40 MG TAB PO SCH (21:11)
[2018-07-29] MEDS: Doxycycline 100 MG CAP PO SCH (21:11)
[2018-07-29] MEDS ORDERED: HYDROcodone/Acetaminophen 5/325 mg Tablet PO SCH (23:00)
[2018-07-30] MEDS ORDERED: HYDROcodone/Acetaminophen 5/325 mg Tablet PO SCH (06:15)
[2018-07-30] MEDS: Allopurinol 300 MG TAB PO SCH (09:23)
[2018-07-30] MEDS: Aspirin 325 mg Enteric Coated Tablet PO SCH (09:23)
[2018-07-30] MEDS: Clopidogrel Bisulfate 75 MG TAB PO SCH (09:23)
[2018-07-30] MEDS: Carvedilol 3.125 MG TAB PO SCH ×2 (09:23→17:09)
[2018-07-30] MEDS: Furosemide 40 MG TAB PO SCH ×2 (09:24→14:35)
[2018-07-30] MEDS: Ezetimibe 10 MG TAB PO SCH (09:24)
[2018-07-30] MEDS: Enoxaparin Sodium 80 MG/0.8 ML SYRINGE SC SCH (09:24)
[2018-07-30] MEDS: Doxycycline 100 MG CAP PO SCH ×2 (09:24→21:39)
[2018-07-30] MEDS: Lisinopril 2.5 MG TAB PO SCH ×2 (09:25→21:39)
[2018-07-30 10:26] LABS: Anion Gap 17 mmol/L (10-20); BUN (Urea Nitrogen) 20 mg/dL (9.8-20.1); Calc. Creatinine Clearance 40 mL/min (70-130); Calcium 9.1 mg/dL (7.8-10.44); Carbon Dioxide 24 mmol/L (23-31); Chloride 98 mmol/L (98-107); Estimated GFR-MDRD 37; Glucose 168 mg/dL (83-110); Potassium 3.7 mmol/L (3.5-5.1); Sodium 135 mmol/L (136-145)
[2018-07-30] MEDS: HumaLOG 300 UNITS/3 ML VIAL SC PRN (11:52)
--- NOTE | 2018-07-30 15:29 | PDOC.PN ---
- Subjective Encounter Start Date: 07/30/18 Encounter Start Time: 09:00 Subjective: pt up in bed still has pain to her right ankle - Objective Resuscitation Status - Order Detail: 07/27/18 20:41 Resuscitation Status Routine Resuscitation Status: FULL: Full Resuscitation Vital Signs & Weight: Vital Signs (12 hours) Temp Pulse Resp BP Pulse Ox 07/30/18 12:15 97.8 F 63 18 112/55 L 96 07/30/18 07:44 97.8 F 66 18 120/58 L 94 L Weight Weight 180 lb I&O: 07/29/18 07/30/18 07/31/18 06:59 06:59 06:59 Intake Total 720 1080 Output Total 800 1000 Balance -80 80 Result Diagrams: 07/28/18 05:02 07/30/18 09:57 Additional Labs: Accuchecks 07/30/18 07/29/18 07/29/18 10:54 20:58 17:02 POC Glucose 233 H 173 H 166 H Phys Exam - Physical Examination Respiratory: no wheezing, no rales, no rhonchi, wheezing present, clear to auscultation bilateral Cardiovascular: RRR, no significant murmur, no rub, gallop, irregular Gastrointestinal: soft, non-tender, no distention, positive bowel sounds pain on palpation to right ankle, mild erythema Dx/Plan (1) NSTEMI (non-ST elevated myocardial infarction) Code(s): I21.4 - NON-ST ELEVATION (NSTEMI) MYOCARDIAL INFARCTION Status: Acute (2) CAD (coronary artery disease) Code(s): I25.10 - ATHSCL HEART DISEASE OF [place] CORONARY ARTERY W/O ANG PCTRS Status: Chronic (3) DMII (diabetes mellitus, type 2) Status: Chronic (4) HTN (hypertension), benign Code(s): I10 - ESSENTIAL (PRIMARY) HYPERTENSION Status: Chronic (5) PAD (peripheral artery disease) Code(s): I73.9 - PERIPHERAL VASCULAR DISEASE, UNSPECIFIED Status: Chronic (6) Right ankle pain Code(s): M25.571 - PAIN IN RIGHT ANKLE AND JOINTS OF RIGHT FOOT Status: Acute - Plan ultrasound indicated mild fluid collection. According to pt she has -: been treated with abx for this ankle and has not helped her -: will continue abx for now. may consider getting surgery eval -: for ther right ankle possible I&D. she is on AC/asa/plavix and statin -: no intervention for nstemi due to severe PAD. mag replaced * . Review of Systems - Review of Systems Cardiovascular: negative: chest pain, palpitations, orthopnea, paroxysmal nocturnal dyspnea, edema, light headedness, other Gastrointestinal: negative: Nausea, Vomiting, Abdominal Pain, Diarrhea, Constipation, Melena, Hematochezia, Other Musculoskeletal: Leg Pain Skin: negative: Rash, Lesions, [place], Bruising, Other - Medications/Allergies Allergies/Adverse Reactions: Allergies Allergy/AdvReac Type Severity Reaction Status Date / Time Penicillins Allergy Rash Verified 07/27/18 22:55 Medications: Current Medications Acetaminophen (Tylenol) 650 mg PO Q4H PRN PRN Reason: Headache/Fever/Mild Pain (1-3) Last Admin: 07/29/18 02:16 Dose: 650 mg Hydrocodone Bitart/Acetaminophen ([place] 5/325) 1 tab PO Q6H PRN PRN Reason: Moderate Pain (4-6) Allopurinol (Zyloprim) 300 mg PO DAILY [facility] Last Admin: 07/30/18 09:23 Dose: 300 mg Aspirin (Ecotrin) 81 mg PO DAILY [facility] Atorvastatin Calcium (Lipitor) 40 mg PO HS [facility] Last Admin: 07/29/18 21:11 Dose: 40 mg Carvedilol (Coreg) 3.125 mg PO BID-WM [facility] Last Admin: 07/30/18 09:23 Dose: 3.125 mg Clopidogrel Bisulfate (Plavix) 75 mg PO DAILY [facility] Last Admin: 07/30/18 09:23 Dose: 75 mg Dextrose/Water (Dextrose 50%) 25 gm SLOW IVP PRN PRN PRN Reason: Hypoglycemia Doxycycline Hyclate (Vibramycin) 100 mg PO BID [facility] Last Admin: 07/30/18 09:24 Dose: 100 mg Ezetimibe (Zetia) 10 mg PO DAILY [facility] Last Admin: 07/30/18 09:24 Dose: 10 mg Enoxaparin Sodium (Lovenox) 80 mg SC 0900,2100 [facility] Last Admin: 07/30/18 09:24 Dose: 80 mg Furosemide (Lasix) 40 mg PO DAILY [facility] Glucagon (Glucagon) 1 mg IM PRN PRN PRN Reason: Hypoglycemia Dextrose/Water (D5w) 1,000 mls @ 0 mls/hr IV .Q0M PRN PRN Reason: Hypoglycemia Insulin Glargine 8 units/ (Miscellaneous Medication) 0.08 mls @ 0 mls/hr SC QAM MICHAEL Insulin Human Lispro (Humalog) 0 units SC .MILD SLIDING SCALE PRN PRN Reason: Mild Correctional Scale Last Admin: 07/30/18 11:52 Dose: 3 units Lisinopril (Zestril) 2.5 mg PO BID [facility] Last Admin: 07/30/18 09:25 Dose: 2.5 mg Ondansetron HCl (Zofran Odt) 4 mg PO Q6H PRN PRN Reason: Nausea/Vomiting Last Admin: 07/30/18 14:17 Dose: 4 mg Ondansetron HCl (Zofran) 4 mg IVP Q6H PRN PRN Reason: Nausea/Vomiting
--- NOTE | 2018-07-30 16:31 | PDOC.CTH ---
Cardiology Progress Note - Subjective The pt seen and examined. No overnight events. No cardiac complaints. She cont. having mod-severe pain to RLE; - Objective Vital Signs Temp Pulse Resp BP Pulse Ox 07/30/18 15:52 97.5 F L 61 18 95/55 L 100 07/30/18 12:15 97.8 F 63 18 112/55 L 96 07/30/18 07:44 97.8 F 66 18 120/58 L 94 L Weight 180 lb 07/29/18 07/30/18 07/31/18 06:59 06:59 06:59 Intake Total 720 1080 Output Total 800 1000 Balance -80 80 - Physical Examination General/Neuro: alert & oriented x3 Neck: no JVD present Lungs: CTA Heart: RRR Abdomen: soft Extremities: other: (no edema) - Telemetry Telemetry Rhythm: SR - Labs Result Diagrams: 07/31/18 06:11 07/31/18 06:11 Troponin/CKMB CK-MB (CK-2) 37.1 ng/mL (0-6.6) H* 07/28/18 00:06 Troponin I 15.486 ng/mL (< 0.028) H* 07/28/18 17:37 - Assessment/Plan 1. NSTEMI - cont. medical tx only for now 2/2 severe CAD with no access; 2. CAD w/ CABG - on ASA, BBlocker, and FADIA, and statin. On Plavix for hx of stent to cervical artery 3. Chronic systolic HF - stable 4. HTN - stable 5. Hyperlipidemia - on statin 6. Dm type 2 - managed by PCP 7. RLE pain with fluid accumulation - sx consult for possible I&D? MAR reviewed Pt. seen and eval. by me. I agree with the A/P by the [employer]. Still complains of right lower leg pain. Chest clear. RRR. No chest pain. No SOB. Review of Systems - Review of Systems Constitutional: reports: no symptoms reported EENTM: reports: no symptoms reported Respiratory: reports: no symptoms reported Cardiac (ROS): reports: no symptoms reported ABD/GI: reports: no symptoms reported : reports: no symptoms reported Musculoskeletal: reports: see HPI
[2018-07-30] MEDS ORDERED: INSULIN ASPART 10 UNIT SQ SCH (17:00)
[2018-07-30] MEDS ORDERED: Enoxaparin Sodium 80 MG/0.8 ML SYRINGE SC SCH (17:23)
[2018-07-30] MEDS: Atorvastatin Calcium 40 MG TAB PO SCH (21:44)
[2018-07-30] MEDS: HYDROcodone/Acetaminophen 5/325 mg Tablet PO PRN (22:32)
[2018-07-31 06:24] LABS: #Lymphocytes 1.6 thou/uL (1.20-3.40); #Monocytes 0.5 thou/uL (0.11-0.59); #Neutrophils 2.1 thou/uL (1.40-6.50); %Basophils 1.1 % (0.0-1.0); %Eosinophils 0.4 % (0.0-10.0); %Lymphocytes 36.8 % (21.0-51.0); %Neutrophils 49.7 % (42.0-75.0); Hemoglobin 10.7 g/dL (12.0-16.0); Mean Corpuscular HGB CONC 31.3 g/dL (32.0-36.0); Mean Platelet Volume 9.1 fL (7.4-10.4); Platelet Count 149 thou/uL (130-400); RBC Distribution Width 16.7 % (11.5-14.5); Red Blood Cell (RBC) Count 3.44 mill/uL (4.20-5.40); White Blood Cell (WBC) Count 4.3 thou/uL (4.8-10.8)
[2018-07-31 06:38] LABS: Anion Gap 15 mmol/L (10-20); BUN (Urea Nitrogen) 22 mg/dL (9.8-20.1); Calc. Creatinine Clearance 35 mL/min (70-130); Calcium 9.2 mg/dL (7.8-10.44); Carbon Dioxide 26 mmol/L (23-31); Chloride 97 mmol/L (98-107); Estimated GFR-MDRD 32; Glucose 144 mg/dL (83-110); Magnesium 1.8 mg/dL (1.6-2.6); Sodium 134 mmol/L (136-145)
[2018-07-31] MEDS ORDERED: Sodium Chloride 0.9% 10 ML ONE (08:22)
[2018-07-31] MEDS ORDERED: Non-Formulary Item 1 EACH (Levemir Flexpen [Levemir Flexpen] 45 UNIT) SC SCH (09:00)
[2018-07-31] MEDS: Insulin Glargine 8 UNITS in Pre-Filled Syringe 1 EACH SC SCH (09:13)
[2018-07-31] MEDS: Enoxaparin Sodium 40 MG/0.4 ML SYRINGE SC SCH (09:14)
[2018-07-31] MEDS: Lisinopril 2.5 MG TAB PO SCH ×2 (09:15→20:27)
[2018-07-31] MEDS: Doxycycline 100 MG CAP PO SCH ×2 (09:15→20:27)
[2018-07-31] MEDS: Ezetimibe 10 MG TAB PO SCH (09:15)
[2018-07-31] MEDS: Furosemide 40 MG TAB PO SCH (09:16)
[2018-07-31] MEDS: Clopidogrel Bisulfate 75 MG TAB PO SCH (09:16)
[2018-07-31] MEDS: Aspirin 81 mg Enteric Coated Tablet PO SCH (09:17)
[2018-07-31] MEDS: Allopurinol 300 MG TAB PO SCH (09:18)
[2018-07-31] MEDS: Carvedilol 3.125 MG TAB PO SCH ×2 (09:18→17:37)
--- NOTE | 2018-07-31 09:49 | PDOC.PN ---
- Subjective Encounter Start Date: 07/31/18 Encounter Start Time: 11:20 Subjective: Patient without CP or SOB. Continued right ankle pain. Swelling -: better with warm compresses. - Objective Resuscitation Status - Order Detail: 07/27/18 20:41 Resuscitation Status Routine Resuscitation Status: FULL: Full Resuscitation MAR Reviewed: Yes Vital Signs & Weight: Vital Signs (12 hours) Temp Pulse Resp BP BP Pulse Ox 07/31/18 09:15 65 118/58 L 07/31/18 08:00 97.7 F 65 18 118/58 L 100 07/31/18 03:25 97.6 F 65 14 102/50 L 95 Weight Weight 180 lb I&O: 07/30/18 07/31/18 08/01/18 06:59 06:59 06:59 Intake Total 1080 690 Output Total 1000 875 Balance 80 -185 Result Diagrams: 07/31/18 06:11 07/31/18 06:11 Additional Labs: Accuchecks 07/31/18 07/30/18 07/30/18 05:49 20:12 17:25 POC Glucose 150 H 224 H 137 H 07/30/18 07/30/18 07/30/18 14:39 10:54 05:33 POC Glucose 159 H 233 H 168 H Phys Exam - Physical Examination Constitutional: NAD HEENT: moist MMs Respiratory: no wheezing, no rales, no rhonchi Cardiovascular: RRR, no significant murmur Gastrointestinal: soft, positive bowel sounds right ankle with soft tissue swelling and significant TTP proximal to lateral malleolus Neurological: non-focal, moves all 4 limbs Psychiatric: normal affect, A&O x 3 Dx/Plan (1) NSTEMI (non-ST elevated myocardial infarction) Code(s): I21.4 - NON-ST ELEVATION (NSTEMI) MYOCARDIAL INFARCTION Status: Acute (2) Acute on chronic combined systolic and diastolic ACC/AHA stage C congestive heart failure Code(s): I50.43 - ACUTE ON CHRONIC COMBINED SYSTOLIC AND DIASTOLIC HRT FAIL Status: Acute (3) CAD (coronary artery disease) Code(s): I25.10 - ATHSCL HEART DISEASE OF [place] CORONARY ARTERY W/O ANG PCTRS Status: Chronic Qualifiers: Coronary Disease-Associated Artery/Lesion type: bypass graft Comment: Severe chronic disease not amenable to further surgical management, medical management only (4) DMII (diabetes mellitus, type 2) Status: Chronic Qualifiers: Diabetes mellitus group home insulin use: with group home use (5) HTN (hypertension), benign Code(s): I10 - ESSENTIAL (PRIMARY) HYPERTENSION Status: Chronic Comment: currently low normal (6) PAD (peripheral artery disease) Code(s): I73.9 - PERIPHERAL VASCULAR DISEASE, UNSPECIFIED Status: Chronic (7) Right ankle pain Code(s): M25.571 - PAIN IN RIGHT ANKLE AND JOINTS OF RIGHT FOOT Status: Acute Comment: surgical consultation for possible fluid collection I&D, on doxycycline - Plan cont current plan of care, continue antibiotics, PT/OT, DVT proph w/lovenox * . - Discharge Day Encounter end time: 11:30
--- NOTE | 2018-07-31 10:48 | PDOC.CTH ---
Cardiology Progress Note - Subjective The pt seen and examined. No overnight events. No cardiac complaints. - Objective Vital Signs Temp Pulse Resp BP BP Pulse Ox 07/31/18 09:15 65 118/58 L 07/31/18 08:00 97.7 F 65 18 118/58 L 100 07/31/18 03:25 97.6 F 65 14 102/50 L 95 Weight 180 lb 07/30/18 07/31/18 08/01/18 06:59 06:59 06:59 Intake Total 1080 690 Output Total 1000 875 Balance 80 -185 - Physical Examination General/Neuro: alert & oriented x3 Neck: no JVD present Lungs: CTA Heart: RRR Abdomen: soft Extremities: other: (No edema; pain to RLE) - Telemetry Telemetry Rhythm: SR - Labs Result Diagrams: 07/31/18 06:11 07/31/18 06:11 Troponin/CKMB CK-MB (CK-2) 37.1 ng/mL (0-6.6) H* 07/28/18 00:06 Troponin I 10.080 ng/mL (< 0.028) H* 07/31/18 06:11 - Assessment/Plan 1. NSTEMI - cont. medical tx only for now 2/2 severe CAD with no access; 2. CAD w/ CABG - on ASA, BBlocker, and FADIA, and statin. On Plavix for hx of stent to cervical artery 3. Chronic systolic HF - stable 4. HTN - Hypotensive yesterday PM; Lasix was changed from IV BID to PO qd; cont. to monitor 5. Hyperlipidemia - on statin 6. Dm type 2 - managed by PCP 7. RLE pain with fluid accumulation - sx consult for possible I&D? MAR reviewed Pt. seen and eval. by me. I agree with the A/P by the NEWSPAPER MANAGING EDITOR. Still complains of right lower leg pain. Chest clear. RRR. No significant edema. Review of Systems - Review of Systems Constitutional: reports: no symptoms reported EENTM: reports: no symptoms reported Respiratory: reports: no symptoms reported Cardiac (ROS): reports: no symptoms reported ABD/GI: reports: no symptoms reported : reports: no symptoms reported Musculoskeletal: reports: no symptoms reported
[2018-07-31 10:52] LABS: Troponin I 8.178 ng/mL (< 0.028)
[2018-07-31] MEDS: HumaLOG 300 UNITS/3 ML VIAL SC PRN (12:39)
[2018-07-31] MEDS: HYDROcodone/Acetaminophen 5/325 mg Tablet PO PRN ×3 (12:41→23:36)
--- NOTE | 2018-07-31 18:44 | HP ---
HISTORY OF PRESENT ILLNESS: Carmen Smallwood is a 73-year-old black female with a right leg abscess. She has undergone soft tissue ultrasound on 07/29/2018, noting a collection of fluid near the lateral lower leg. There is hyperpigmentation changes, chronic venous stasis changes, and indications of acute inflammation. It is very tender and painful. She is afebrile. White count is 4, hemoglobin 11.4. The patient was admitted on 07/27/2018 with nausea, vomiting, and diarrhea. She was found to have [id number] MO, troponin of 5.2. She has been seen by Cardiology. She has a known history of coronary artery disease with previous CABG. Echocardiogram on 06/28/2018, EF 15% to 20%, diastolic dysfunction, mild mitral regurgitation, moderate aortic regurgitation, severe tricuspid regurgitation, [id number] pulmonic regurgitation. Plan is to incise and drain her right lateral leg abscess. Ultrasound suggests a collection. She is very tender and it feels fluctuant. This has been going for several weeks. She has been treated for gout. She has insulin-dependent diabetes mellitus. ALLERGIES: PENICILLIN. SOCIAL HISTORY: Tobacco, none currently. Alcohol, none. MEDICATIONS: 1. Colchicine. 2. Tessalon. 3. Aspirin. 4. Bactrim. 5. Levemir. 6. NovoLog. 7. Zetia. 8. Plavix. 9. Coreg. 10. Calcium. 11. Allopurinol. 12. Zestril. 13. Lasix. PAST SURGICAL HISTORY: Coronary artery bypass grafting, left carotid endarterectomy, hysterectomy. PAST MEDICAL HISTORY: Coronary artery disease; cardiomyopathy; hypertension; congestive heart failure; diabetes mellitus, on insulin; dyslipidemia; chronic kidney disease; recent myocardial infarction in this hospitalization. PHYSICAL EXAMINATION: She is a DNR. VITAL SIGNS: Height 5 feet and 3 inches, BMI 31. Temperature 97.5, pulse 59, blood pressure 116/56. HEAD, EARS, EYES, NOSE AND THROAT: Unremarkable. LUNGS: Clear to auscultation. CARDIAC: Regular rate and rhythm without murmur or gallop. ABDOMEN: Soft and nontender. EXTREMITIES: Palpable pedal pulses. Chronic venous stasis changes, severe inflammation, fluctuance, and cellulitis of right lateral leg distally. ASSESSMENT: Abscess, right leg. PLAN: Incision and drainage under sedation, local. Risks and benefits explained. She consents. We will plan this tomorrow. We will plan this after adequate n.p.o. status. We would treat her with intravenous antibiotics, with a penicillin allergy, we will treat her with vancomycin and cefepime. Job ID: [id number]
[2018-07-31] MEDS: Cefepime 2 GM in Sodium Chloride 0.9% 100 ML IVPB SCH (20:26)
[2018-07-31] MEDS: Atorvastatin Calcium 40 MG TAB PO SCH (20:27)
[2018-07-31] MEDS: Vancomycin HCl 1.25 GM in Sodium Chloride 0.9% 250 ML 250 ML IVPB SCH (21:18)
[2018-08-01] MEDS: HYDROcodone/Acetaminophen 5/325 mg Tablet PO PRN ×2 (05:41→18:20)
[2018-08-01] MEDS: Cefepime 2 GM in Sodium Chloride 0.9% 100 ML IVPB SCH ×2 (06:09→18:39)
--- NOTE | 2018-08-01 08:28 | PDOC.PN ---
- Subjective Encounter Start Date: 08/01/18 Encounter Start Time: 10:40 Subjective: Patient with continued pain and swelling above right lateral malleolus. -: No fever. No SOB. No chest pain. - Objective Resuscitation Status - Order Detail: 07/31/18 17:39 Resuscitation Status Routine Resuscitation Status: DNAR: NO Resuscitation Discussed with: Patient Additional comments: Pt stated that she would not want chest compressions, intubation, cardiac meds. Pt has AICD and wants to keep it active at this time. DNAR consent obtained fro pt. MAR Reviewed: Yes Vital Signs & Weight: Vital Signs (12 hours) Temp Pulse Resp BP Pulse Ox 08/01/18 07:39 97.7 F 66 24 H 117/58 L 99 08/01/18 04:00 97.7 F 60 12 109/55 L 96 Weight Weight 181 lb 4.8 oz I&O: 07/31/18 08/01/18 08/02/18 06:59 06:59 06:59 Intake Total 690 180 Output Total 875 300 Balance -185 -120 Result Diagrams: 07/31/18 06:11 07/31/18 06:11 Additional Labs: Accuchecks 08/01/18 07/31/18 07/31/18 06:04 20:46 16:54 POC Glucose 114 H 118 H 127 H 07/31/18 07/30/18 10:12 20:12 POC Glucose 155 H 224 H Phys Exam - Physical Examination Constitutional: NAD HEENT: moist MMs Respiratory: no wheezing, no rales, no rhonchi Cardiovascular: RRR, no significant murmur Gastrointestinal: soft, positive bowel sounds swelling and TTP proximal to right later malleolus Neurological: non-focal, moves all 4 limbs Psychiatric: normal affect, A&O x 3 Dx/Plan (1) NSTEMI (non-ST elevated myocardial infarction) Code(s): I21.4 - NON-ST ELEVATION (NSTEMI) MYOCARDIAL INFARCTION Status: Acute (2) Acute on chronic combined systolic and diastolic ACC/AHA stage C congestive heart failure Code(s): I50.43 - ACUTE ON CHRONIC COMBINED SYSTOLIC AND DIASTOLIC HRT FAIL Status: Acute (3) CAD (coronary artery disease) Code(s): I25.10 - ATHSCL HEART DISEASE OF [place] CORONARY ARTERY W/O ANG PCTRS Status: Chronic Qualifiers: Coronary Disease-Associated Artery/Lesion type: bypass graft Comment: Severe chronic disease not amenable to further surgical management, medical management only (4) DMII (diabetes mellitus, type 2) Status: Chronic Qualifiers: Diabetes mellitus oysterman insulin use: with halfway use (5) HTN (hypertension), benign Code(s): I10 - ESSENTIAL (PRIMARY) HYPERTENSION Status: Chronic Comment: currently low normal (6) PAD (peripheral artery disease) Code(s): I73.9 - PERIPHERAL VASCULAR DISEASE, UNSPECIFIED Status: Chronic (7) Right ankle pain Code(s): M25.571 - PAIN IN RIGHT ANKLE AND JOINTS OF RIGHT FOOT Status: Acute Comment: Dr. Tineo to I&D, on doxycycline - Plan cont current plan of care, continue antibiotics, PT/OT, DVT proph w/lovenox * . - Discharge Day Encounter end time: 10:50
--- NOTE | 2018-08-01 09:42 | PDOC.CTH ---
Cardiology Progress Note - Subjective The pt seen and examined. No overnight. No cardiac complaints. She had SOB when she stood up and her pain to RLL increased. - Objective Vital Signs Temp Pulse Resp BP Pulse Ox 08/01/18 07:39 97.7 F 66 24 H 117/58 L 99 08/01/18 04:00 97.7 F 60 12 109/55 L 96 Weight 181 lb 4.8 oz 07/31/18 08/01/18 08/02/18 06:59 06:59 06:59 Intake Total 690 180 Output Total 875 300 Balance -185 -120 - Physical Examination General/Neuro: alert & oriented x3 Neck: no JVD present Lungs: CTA Heart: RRR Abdomen: soft Extremities: other: (swelling to RLL) - Labs Result Diagrams: 07/31/18 06:11 07/31/18 06:11 Troponin/CKMB CK-MB (CK-2) 37.1 ng/mL (0-6.6) H* 07/28/18 00:06 Troponin I 8.178 ng/mL (< 0.028) H* 07/31/18 10:11 - Assessment/Plan 1. NSTEMI - cont. medical tx only for now 2/2 severe CAD with no access; 2. CAD w/ CABG - on ASA, BBlocker, and FADIA, and statin. On Plavix for hx of stent to cervical artery 3. Chronic systolic HF - stable 4. HTN - Hypotensive yesterday PM; Lasix was changed from IV BID to PO qd; cont. to monitor 5. Hyperlipidemia - on statin 6. Dm type 2 - managed by PCP 7. RLE pain with fluid accumulation - Plan for I&D today MAR reviewed Pt. seen and eval. by me. I agree with the A/P by the WELLNESS TRAINER. Still complains of right lower leg pain. Plan for possible drainage today. Review of Systems - Review of Systems Constitutional: reports: no symptoms reported EENTM: reports: no symptoms reported Respiratory: reports: no symptoms reported Cardiac (ROS): reports: no symptoms reported ABD/GI: reports: no symptoms reported : reports: no symptoms reported Musculoskeletal: reports: see HPI
[2018-08-01] MEDS: Lisinopril 2.5 MG TAB PO SCH ×2 (10:01→20:12)
[2018-08-01] MEDS: Allopurinol 300 MG TAB PO SCH (10:02)
[2018-08-01] MEDS: Carvedilol 3.125 MG TAB PO SCH ×2 (10:02→18:19)
[2018-08-01] MEDS: Clopidogrel Bisulfate 75 MG TAB PO SCH (10:03)
[2018-08-01] MEDS: Doxycycline 100 MG CAP PO SCH ×2 (10:03→20:12)
[2018-08-01] MEDS: Ezetimibe 10 MG TAB PO SCH (10:03)
[2018-08-01] MEDS: Furosemide 40 MG TAB PO SCH (10:04)
[2018-08-01] MEDS: Aspirin 81 mg Enteric Coated Tablet PO SCH (10:04)
[2018-08-01] MEDS: Insulin Glargine 8 UNITS in Pre-Filled Syringe 1 EACH SC SCH (10:04)
[2018-08-01] MEDS: Enoxaparin Sodium 40 MG/0.4 ML SYRINGE SC SCH (10:04)
[2018-08-01] MEDS ORDERED: PROPOFOL 200 MG/20 ML VIAL ONE (15:03)
[2018-08-01] MEDS ORDERED: PHENYLEPHRINE-NS 100 MCG/ML 10 ML SYRINGE ONE (15:03)
[2018-08-01] MEDS ORDERED: Bupivacaine HCl 0.5%/Epinephrine 1:200,000/PF 30 ml Vial ONE (16:52)
[2018-08-01] MEDS ORDERED: Lidocaine 2% PF 5 ML VIAL ONE (16:53)
[2018-08-01] MEDS ORDERED: traMADol HCl 50 MG TAB PO PRN (17:10)
[2018-08-01] MEDS ORDERED: Acetaminophen 500 MG TAB PO PRN (17:10)
[2018-08-01] MEDS ORDERED: Promethazine HCl 25 MG/ML VIAL SLOW IVP PRN (17:12)
[2018-08-01] MEDS ORDERED: Ondansetron HCl/PF 4 MG/2 ML Vial IVP PRN (17:12)
[2018-08-01] MEDS ORDERED: Promethazine HCl 25 MG/ML VIAL IM PRN (17:12)
[2018-08-01] MEDS ORDERED: Ondansetron PF 4 MG/2 ML Vial ONE (17:27)
[2018-08-01] MEDS ORDERED: Promethazine HCl 25 MG/ML VIAL ONE (17:29)
[2018-08-01] MEDS: Atorvastatin Calcium 40 MG TAB PO SCH (20:12)
[2018-08-01] MEDS: Vancomycin HCl 1.25 GM in Sodium Chloride 0.9% 250 ML 250 ML IVPB SCH (22:38)
[2018-08-02] MEDS: HYDROcodone/Acetaminophen 5/325 mg Tablet PO PRN ×3 (01:54→20:36)
[2018-08-02] MEDS: Cefepime 2 GM in Sodium Chloride 0.9% 100 ML IVPB SCH ×2 (06:13→18:07)
[2018-08-02 06:20] LABS: #Lymphocytes 1.4 thou/uL (1.20-3.40); #Monocytes 0.4 thou/uL (0.11-0.59); #Neutrophils 2.4 thou/uL (1.40-6.50); %Eosinophils 0.7 % (0.0-10.0); %Monocytes 8.5 % (0.0-10.0); %Neutrophils 56.7 % (42.0-75.0); Hemoglobin 10.9 g/dL (12.0-16.0); Mean Corpuscular HGB CONC 30.4 g/dL (32.0-36.0); Mean Corpuscular Hemoglobin 30.6 pg (27.0-31.0); Mean Platelet Volume 9.8 fL (7.4-10.4); Platelet Count 127 thou/uL (130-400); Red Blood Cell (RBC) Count 3.55 mill/uL (4.20-5.40); White Blood Cell (WBC) Count 4.2 thou/uL (4.8-10.8)
[2018-08-02] MEDS ORDERED: Morphine 2 MG/ML SYRINGE SLOW IVP SCH (06:30)
[2018-08-02 06:39] LABS: Anion Gap 14 mmol/L (10-20); BUN (Urea Nitrogen) 21 mg/dL (9.8-20.1); Calc. Creatinine Clearance 52 mL/min (70-130); Carbon Dioxide 23 mmol/L (23-31); Chloride 101 mmol/L (98-107); Estimated GFR-MDRD 51; Glucose 68 mg/dL (83-110); Potassium 3.5 mmol/L (3.5-5.1); Sodium 134 mmol/L (136-145)
--- NOTE | 2018-08-02 08:22 | OP ---
DATE OF PROCEDURE: 08/01/2018 PREOPERATIVE DIAGNOSIS: Right leg abscess laterally above the ankle. POSTOPERATIVE DIAGNOSIS: Right leg abscess laterally above the ankle. PROCEDURE PERFORMED: Incision and drainage of large abscess, right lateral leg, lower third, 6 cm incision. Copious amounts of purulent material evacuated. Culture and sensitivity submitted to microbiology. ANESTHESIA: TIVA, local of 0.5% Marcaine with epinephrine 30 mL mixed with 2% Xylocaine 10 mL. DESCRIPTION OF PROCEDURE: The patient was taken to the operating room where under intravenous sedation, supine position, right lower extremity was prepared with ChloraPrep and draped in routine fashion. Local anesthetic mixture was infiltrated into the skin and subcutaneous tissue and 6 cm incision made, unroofing a large abscess, so vacuumed it, irrigated it, packed it with local anesthetic, wet-to-dry dressings. The patient tolerated the procedure well. Peter wrap applied. Job ID: [id number]
[2018-08-02] MEDS: Ezetimibe 10 MG TAB PO SCH (08:52)
[2018-08-02] MEDS: Lisinopril 2.5 MG TAB PO SCH ×2 (08:52→20:36)
[2018-08-02] MEDS: Doxycycline 100 MG CAP PO SCH ×2 (08:52→20:36)
[2018-08-02] MEDS: Carvedilol 3.125 MG TAB PO SCH ×2 (08:53→17:22)
[2018-08-02] MEDS: Allopurinol 300 MG TAB PO SCH (08:53)
[2018-08-02] MEDS: Insulin Glargine 8 UNITS in Pre-Filled Syringe 1 EACH SC SCH (08:53)
[2018-08-02] MEDS: Enoxaparin Sodium 40 MG/0.4 ML SYRINGE SC SCH (08:53)
[2018-08-02] MEDS: Furosemide 40 MG TAB PO SCH (08:53)
[2018-08-02] MEDS: Clopidogrel Bisulfate 75 MG TAB PO SCH (08:53)
[2018-08-02] MEDS: Aspirin 81 mg Enteric Coated Tablet PO SCH (08:53)
[2018-08-02] MEDS: Polyethylene Glycol 3350 17 GM Packet PO SCH (08:53)
--- NOTE | 2018-08-02 09:15 | PDOC.PN ---
- Subjective Encounter Start Date: 08/02/18 Encounter Start Time: 11:30 Subjective: Pain in right leg much improved after I&D yesterday. No other -: complaints. Still having trouble getting around due to the pain. - Objective Resuscitation Status - Order Detail: 07/31/18 17:39 Resuscitation Status Routine Resuscitation Status: DNAR: NO Resuscitation Discussed with: Patient Additional comments: Pt stated that she would not want chest compressions, intubation, cardiac meds. Pt has AICD and wants to keep it active at this time. DNAR consent obtained fro pt. MAR Reviewed: Yes Vital Signs & Weight: Vital Signs (12 hours) Temp Pulse Resp BP Pulse Ox 08/02/18 07:23 98.0 F 65 18 111/56 L 98 08/02/18 04:20 97.4 F L 65 22 H 110/55 L 97 Weight Weight 181 lb 4.8 oz I&O: 08/01/18 08/02/18 08/03/18 06:59 06:59 06:59 Intake Total 180 180 Output Total 300 Balance -120 180 Result Diagrams: 08/02/18 05:38 08/02/18 05:38 Additional Labs: Accuchecks 08/02/18 08/01/18 08/01/18 05:31 20:06 18:24 POC Glucose 74 111 H 44 L* 08/01/18 10:49 POC Glucose 114 H Phys Exam - Physical Examination Constitutional: NAD HEENT: moist MMs Respiratory: no wheezing, no rales, no rhonchi, clear to auscultation bilateral Cardiovascular: RRR Gastrointestinal: soft, positive bowel sounds Neurological: non-focal, moves all 4 limbs Psychiatric: normal affect, A&O x 3 Dx/Plan (1) NSTEMI (non-ST elevated myocardial infarction) Code(s): I21.4 - NON-ST ELEVATION (NSTEMI) MYOCARDIAL INFARCTION Status: Acute (2) Acute on chronic combined systolic and diastolic ACC/AHA stage C congestive heart failure Code(s): I50.43 - ACUTE ON CHRONIC COMBINED SYSTOLIC AND DIASTOLIC HRT FAIL Status: Acute (3) CAD (coronary artery disease) Code(s): I25.10 - ATHSCL HEART DISEASE OF [place] CORONARY ARTERY W/O ANG PCTRS Status: Chronic Qualifiers: Coronary Disease-Associated Artery/Lesion type: bypass graft Comment: Severe chronic disease not amenable to further surgical management, medical management only (4) DMII (diabetes mellitus, type 2) Status: Chronic Qualifiers: Diabetes mellitus die engraver insulin use: with die engraver use (5) HTN (hypertension), benign Code(s): I10 - ESSENTIAL (PRIMARY) HYPERTENSION Status: Chronic Comment: currently low normal (6) PAD (peripheral artery disease) Code(s): I73.9 - PERIPHERAL VASCULAR DISEASE, UNSPECIFIED Status: Chronic (7) Abscess of right lower leg Code(s): L02.415 - CUTANEOUS ABSCESS OF RIGHT LOWER LIMB Status: Acute Comment: s/p I&D by Dr. Tineo 08/01/18, cultures pending, wound care and IV abx - Plan cont current plan of care, continue antibiotics, PT/OT, DVT proph w/lovenox * . - Discharge Day Encounter end time: 11:40
[2018-08-02 11:51] VITALS: BMI 32.1
--- NOTE | 2018-08-02 16:00 | PQF ---
CLINICAL DOCUMENTATION IMPROVEMENT CLARIFICATION FORM: ICD-10 Updated PLEASE DO AN ADDENDUM TO THE PROGRESS NOTE WITH ANY DOCUMENTATION UPDATES OR ADDITIONS AND CARRY THROUGH TO DC SUMMARY. THANK YOU. DATE: 08/02/18 ATTN: DR. PEREYRA Please exercise your independent, professional judgment in responding to the clarification form. Clinical indicators are provided on the bottom of this form for your review Please check appropriate box(s): [ X ] Acute Renal Failure (ARF) / Acute Kidney Injury (KB) [ ] Acute Tubular Necrosis (ATN) [ ] Acute Cortical Necrosis [ ] Acute Medullary Necrosis [ ] Other Etiology or underlying conditions related to the diagnosis of ARF/ KB: [ ] Acute Interstitial Nephritis (AIN) [ ] Other: [ ] Acute on Chronic Renal Failure please specify Stage of CKD (see below) [ ] CKD without ARF/KB please specify Stage of CKD [ ] ESRD [ ] Other diagnosis [ ] Unable to determine In addition, please specify: Present on Admission (POA): [ X ] Yes [ ] No [ ] Unable to determine National Kidney Foundation Guidelines for CKD Staging Stage I Kidney damage with normal or increased GFRGFR > 90 Stage IIKidney damage with mildly decreased GFRGFR 60-89 Stage III Kidney damage with moderately decreased GFRGFR 30-59 Stage IVKidney damage with severely decreased GFRGFR 16-29 Stage VKidney failureGFR<15 ESRDEnd Stage Renal DiseaseOn dialysis Acute Renal Failure/Acute Kidney Failure defined as: Increases in SCr by (>) 0.3 mg/dl within 48 hours OR- Increases in SCr by (>) 1.5 times baseline, known or presumed to have occurred within the prior 7 days OR- Urine volume < 0.5 ml/kg/hour for 6 hours (KDIGO supplement 2012 for RIFLE/HAYLIE criteria) For continuity of documentation, please document condition throughout progress notes and discharge summary. Thank You. CLINICAL INDICATORS - SIGNS / SYMPTOMS / LABS 07/30: BUN: 20 CREAT: 1.65 07/31: BUN 22 CREAT: 1.87 08/02: BUN: 21 CREAT: 1.26 RISKS: CAD HYPERTENSION DIABETES TREATMENT: CARDIAC MONITORING SERIAL LABS COREG 07/28-PRESENT) ZESTRIL (07/27-PRESENT) LASIX (07/31-PRESENT) (This form is maintained as a part of the permanent medical record) 2014 [employer]. All Rights Reserved MIKE [email or web address] Office: [phone] [facility] THROAT HOSPITALRuth Ann
--- NOTE | 2018-08-02 19:58 | PDOC.CTH ---
Cardiology Progress Note - Objective Vital Signs Temp Pulse Resp BP Pulse Ox 08/02/18 16:40 97.9 F 68 14 138/68 99 08/02/18 12:24 98.1 F 58 L 14 136/60 99 08/02/18 08:53 98 Admit Weight 178 lb Weight 181 lb 4.8 oz 08/01/18 08/02/18 08/03/18 06:59 06:59 06:59 Intake Total 180 180 Output Total 300 Balance -120 180 - Physical Examination General/Neuro: alert & oriented x3 Neck: no JVD present Lungs: CTA, unlabored respirations Heart: RRR Abdomen: no HSM, NT/ND, soft - Labs Result Diagrams: 08/02/18 05:38 08/02/18 05:38 Troponin/CKMB CK-MB (CK-2) 37.1 ng/mL (0-6.6) H* 07/28/18 00:06 Troponin I 8.178 ng/mL (< 0.028) H* 07/31/18 10:11 - Assessment/Plan 1. NSTEMI - cont. medical tx only for now 2/2 severe CAD with no access; 2. CAD w/ CABG - on ASA, BBlocker, and FADIA, and statin. On Plavix for hx of stent to subclavian arteries. 3. Chronic systolic HF - stable 4. HTN - Hypotensive yesterday PM; Lasix was changed from IV BID to PO qd; cont. to monitor 5. Hyperlipidemia - on statin 6. Dm type 2 - managed by PCP 7. RLE pain with fluid accumulation - I&D'd. Purulent material drained. Feels much better. MAR reviewed
[2018-08-02] MEDS: Atorvastatin Calcium 40 MG TAB PO SCH (20:36)
[2018-08-02] MEDS: Vancomycin HCl 1.25 GM in Sodium Chloride 0.9% 250 ML 250 ML IVPB SCH (20:38)
[2018-08-03] MEDS: HYDROcodone/Acetaminophen 5/325 mg Tablet PO PRN ×3 (05:33→20:02)
[2018-08-03] MEDS: Cefepime 2 GM in Sodium Chloride 0.9% 100 ML IVPB SCH (05:33)
--- NOTE | 2018-08-03 08:23 | PDOC.PN ---
- Subjective Encounter Start Date: 08/03/18 Encounter Start Time: 10:10 Subjective: Patient reports pain in right lower leg abscess resolve, but now -: very painful in proximal right calf. - Objective Resuscitation Status - Order Detail: 07/31/18 17:39 Resuscitation Status Routine Resuscitation Status: DNAR: NO Resuscitation Discussed with: Patient Additional comments: Pt stated that she would not want chest compressions, intubation, cardiac meds. Pt has AICD and wants to keep it active at this time. DNAR consent obtained fro pt. MAR Reviewed: Yes Vital Signs & Weight: Vital Signs (12 hours) Temp Pulse Resp BP Pulse Ox 08/03/18 07:05 98.1 F 59 L 14 119/56 L 95 08/03/18 03:40 97.9 F 59 L 18 114/55 L 98 08/02/18 20:36 68 Weight Admit Weight 178 lb Weight 183 lb 6.4 oz I&O: 08/02/18 08/03/18 08/04/18 06:59 06:59 06:59 Intake Total 180 360 Balance 180 360 Result Diagrams: 08/02/18 05:38 08/02/18 05:38 Additional Labs: Accuchecks 08/03/18 08/02/18 08/02/18 05:18 20:08 16:58 POC Glucose 81 95 93 08/02/18 10:45 POC Glucose 84 Phys Exam - Physical Examination Constitutional: NAD HEENT: moist MMs Respiratory: no wheezing, no rales, no rhonchi Cardiovascular: RRR 2/6 SAMMY Gastrointestinal: soft, positive bowel sounds right calf TTP, no redness, no swelling, no warmth Neurological: non-focal, moves all 4 limbs Psychiatric: normal affect, A&O x 3 Dx/Plan (1) NSTEMI (non-ST elevated myocardial infarction) Code(s): I21.4 - NON-ST ELEVATION (NSTEMI) MYOCARDIAL INFARCTION Status: Acute (2) Acute on chronic combined systolic and diastolic ACC/AHA stage C congestive heart failure Code(s): I50.43 - ACUTE ON CHRONIC COMBINED SYSTOLIC AND DIASTOLIC HRT FAIL Status: Acute (3) CAD (coronary artery disease) Code(s): I25.10 - ATHSCL HEART DISEASE OF [place] CORONARY ARTERY W/O ANG PCTRS Status: Chronic Qualifiers: Coronary Disease-Associated Artery/Lesion type: bypass graft Comment: Severe chronic disease not amenable to further surgical management, medical management only (4) DMII (diabetes mellitus, type 2) Status: Chronic Qualifiers: Diabetes mellitus laborer marine terminal insulin use: with fdc use Qualified Code( s): E11.9 - Type 2 diabetes mellitus without complications; Z79.4 - penitentiary ( current) use of insulin (5) HTN (hypertension), benign Code(s): I10 - ESSENTIAL (PRIMARY) HYPERTENSION Status: Chronic Comment: currently low normal (6) PAD (peripheral artery disease) Code(s): I73.9 - PERIPHERAL VASCULAR DISEASE, UNSPECIFIED Status: Chronic (7) Abscess of right lower leg Code(s): L02.415 - CUTANEOUS ABSCESS OF RIGHT LOWER LIMB Status: Acute Comment: s/p I&D by Dr. Tineo 08/01/18, culture with pansensitive K. pneumonia, wound care and IV abx (8) Acute renal failure Status: Acute Comment: present on admission, not elevated previously, fairly stable - Plan cont current plan of care, continue antibiotics, DVT proph w/lovenox U/S right calf to r/o DVT * . - Discharge Day Encounter end time: 10:20
[2018-08-03] MEDS: Insulin Glargine 8 UNITS in Pre-Filled Syringe 1 EACH SC SCH (08:33)
[2018-08-03] MEDS: Enoxaparin Sodium 40 MG/0.4 ML SYRINGE SC SCH (08:33)
[2018-08-03] MEDS: traMADol HCl 50 MG TAB PO PRN (08:34)
[2018-08-03] MEDS: Polyethylene Glycol 3350 17 GM Packet PO SCH (08:34)
[2018-08-03] MEDS: Furosemide 40 MG TAB PO SCH (08:35)
[2018-08-03] MEDS: Doxycycline 100 MG CAP PO SCH ×2 (08:35→20:01)
[2018-08-03] MEDS: Aspirin 81 mg Enteric Coated Tablet PO SCH (08:35)
[2018-08-03] MEDS: Ezetimibe 10 MG TAB PO SCH (08:35)
[2018-08-03] MEDS: Lisinopril 2.5 MG TAB PO SCH ×2 (08:35→20:02)
[2018-08-03] MEDS: Allopurinol 300 MG TAB PO SCH (08:35)
[2018-08-03] MEDS: Clopidogrel Bisulfate 75 MG TAB PO SCH (08:35)
[2018-08-03] MEDS: Carvedilol 3.125 MG TAB PO SCH ×2 (08:36→16:58)
--- NOTE | 2018-08-03 09:13 | PQF ---
CLINICAL DOCUMENTATION IMPROVEMENT CLARIFICATION FORM: ICD-10 Updated PLEASE DO AN ADDENDUM TO THE PROGRESS NOTE WITH ANY DOCUMENTATION UPDATES OR ADDITIONS AND CARRY THROUGH TO DC SUMMARY. THANK YOU. DATE: 08/03/18 ATTN: DR. PEREYRA Please exercise your independent, professional judgment in responding to the clarification form. Clinical indicators are provided on the bottom of this form for your review Please check appropriate box(s): Conflicting documentation was noted in the Medical Record, please clarify if patient is being treated/monitored for: [ ] CHRONIC SYSTOLIC HEART FAILURE [ X ] ACUTE ON CHRONIC COMBINED HEART FAILURE [ ] Other diagnosis [ ] Unable to determine In addition, please specify: Present on Admission (POA): [ X ] Yes [ ] No [ ] Unable to determine For continuity of documentation, please document condition throughout progress notes and discharge summary. Thank You. CLINICAL INDICATORS - SIGNS / SYMPTOMS/ LABS H&P: "HX OF CHF, THIS PROBLEM IS CHRONIC, SEEMS TO BE STABLE AT THIS POINT." CARDIOLOGY NOTE 07/29-08/01: "CHRONIC SYSTOLIC HEART FAILURE, STABLE." PROGRESS NOTE (SOUND ) 07/30-08/01: "ACUTE ON CHRONIC COMBINED CHF" BNP 6219 RISKS: H/O CHF HYPERTENSION TREATMENT: PO LASIX CARDIOLOGY CONSULT TELEMETRY MONITORING (This form is maintained as a part of the permanent medical record) 2014 [employer]. All Rights Reserved MIKE [email or web address] Office: [phone] MTDRuth Ann
[2018-08-03] MEDS: Sulfameth/Trimethoprim DS 800-160mg TAB PO SCH ×2 (12:00→20:02)
--- NOTE | 2018-08-03 12:50 | PDOC.CTH ---
Cardiology Progress Note - Subjective The pt seen and examined. No overnight events. No cardiac complaints. - Objective Vital Signs Temp Pulse Resp BP Pulse Ox 08/03/18 12:00 97.3 F L 57 L 18 123/58 L 98 08/03/18 08:35 59 L 08/03/18 07:05 98.1 F 59 L 14 119/56 L 95 08/03/18 03:40 97.9 F 59 L 18 114/55 L 98 Admit Weight 178 lb Weight 183 lb 6.4 oz 08/02/18 08/03/18 08/04/18 06:59 06:59 06:59 Intake Total 180 360 120 Balance 180 360 120 - Physical Examination General/Neuro: alert & oriented x3 Neck: no JVD present Lungs: CTA Heart: RRR Abdomen: soft Extremities: other: - Labs Result Diagrams: 08/02/18 05:38 08/02/18 05:38 Troponin/CKMB CK-MB (CK-2) 37.1 ng/mL (0-6.6) H* 07/28/18 00:06 Troponin I 8.178 ng/mL (< 0.028) H* 07/31/18 10:11 - Assessment/Plan 1. NSTEMI - cont. medical tx only for now 2/2 severe CAD with no access; 2. CAD w/ CABG - on ASA, BBlocker, and FADIA, and statin. On Plavix for hx of stent to subclavian arteries. 3. Chronic systolic HF - stable 4. HTN - Hypotensive yesterday PM; Lasix was changed from IV BID to PO qd; cont. to monitor 5. Hyperlipidemia - on statin 6. Dm type 2 - managed by PCP 7. RLE pain with fluid accumulation - I&D'd. Purulent material drained. Feels much better. MAR reviewed pt. seen and eval. by me. I agree with the A\P by the STUDENT DRIVING INSTRUCTOR. Cardiac status is stable. Review of Systems - Review of Systems Constitutional: reports: no symptoms reported EENTM: reports: no symptoms reported Respiratory: reports: no symptoms reported Cardiac (ROS): reports: no symptoms reported ABD/GI: reports: no symptoms reported : reports: no symptoms reported
--- NOTE | 2018-08-03 15:48 | ULT ---
ULTRASOUND RIGHT LOWER EXTREMITY VENOUS DOPPLER: HISTORY: Calf pain and DVT and edema. COMPARISON: Ultrasound 06/30/2018. FINDINGS: Real-time, woods scale, color Doppler, and spectral analysis of the right lower extremity venous was p erformed. The common femoral, femoral, proximal portion, greater saphenous, deep femoral veins, as w ell as popliteal and posterior tibial veins were interrogated. Normal flow, augmentation, and compression. Mild lower extremity superficial edema. IMPRESSION: No deep vein thrombosis. POS: [facility]
[2018-08-03] MEDS: Atorvastatin Calcium 40 MG TAB PO SCH (20:01)
[2018-08-04] MEDS: traMADol HCl 50 MG TAB PO PRN ×2 (00:26→08:56)
[2018-08-04] MEDS: HYDROcodone/Acetaminophen 5/325 mg Tablet PO PRN (07:55)
[2018-08-04] MEDS: Clopidogrel Bisulfate 75 MG TAB PO SCH (08:51)
[2018-08-04] MEDS: Ezetimibe 10 MG TAB PO SCH (08:51)
[2018-08-04] MEDS: Sulfameth/Trimethoprim DS 800-160mg TAB PO SCH (08:51)
[2018-08-04] MEDS: Aspirin 81 mg Enteric Coated Tablet PO SCH (08:51)
[2018-08-04] MEDS: Allopurinol 300 MG TAB PO SCH (08:51)
[2018-08-04] MEDS: Insulin Glargine 8 UNITS in Pre-Filled Syringe 1 EACH SC SCH (08:51)
[2018-08-04] MEDS: Doxycycline 100 MG CAP PO SCH (08:51)
[2018-08-04] MEDS: Enoxaparin Sodium 40 MG/0.4 ML SYRINGE SC SCH (08:51)
[2018-08-04] MEDS: Carvedilol 3.125 MG TAB PO SCH (08:51)
[2018-08-04] MEDS: Furosemide 40 MG TAB PO SCH (08:52)
[2018-08-04] MEDS: Lisinopril 2.5 MG TAB PO SCH (08:53)
[2018-08-04] MEDS: Polyethylene Glycol 3350 17 GM Packet PO SCH (08:54)
[2018-08-04] MEDS ORDERED: Midodrine HCl 5 MG TAB PO SCH (13:30)
--- NOTE | 2018-08-04 15:12 | PDOC.CTH ---
Cardiology Progress Note - Subjective The pt seen and examined. No overnight events. No cardiac complaints. - Objective Vital Signs Temp Pulse Pulse Pulse Pulse Pulse Resp 08/04/18 13:15 63 61 65 69 08/04/18 11:10 97.2 F L 60 16 08/04/18 08:53 60 08/04/18 07:10 97.9 F 60 16 08/04/18 04:00 99.2 F 60 19 BP BP BP BP BP Pulse Ox 08/04/18 13:15 99/47 L 108/51 L 109/57 L 109/51 L 08/04/18 11:10 100/50 L 97 08/04/18 08:53 08/04/18 07:10 100/46 L 97 08/04/18 04:00 101/53 L 96 Admit Weight 178 lb Weight 184 lb 9.6 oz 08/03/18 08/04/18 08/05/18 06:59 06:59 06:59 Intake Total 360 1080 240 Balance 360 1080 240 - Physical Examination General/Neuro: alert & oriented x3 Neck: no JVD present Lungs: CTA Heart: RRR Abdomen: soft Extremities: other: (No edema; dressing to RLL) - Telemetry Telemetry Rhythm: SR - Labs Result Diagrams: 08/02/18 05:38 08/02/18 05:38 Troponin/CKMB CK-MB (CK-2) 37.1 ng/mL (0-6.6) H* 07/28/18 00:06 Troponin I 8.178 ng/mL (< 0.028) H* 07/31/18 10:11 - Assessment/Plan 1. NSTEMI - cont. medical tx only for now 2/2 severe CAD with no access; 2. CAD w/ CABG - on ASA, BBlocker, and FADIA, and statin. On Plavix for hx of stent to subclavian arteries. 3. Chronic systolic HF - stable 4. HTN - Hypotensive yesterday PM; Lasix was changed from IV BID to PO qd; cont. to monitor 5. Hyperlipidemia - on statin 6. Dm type 2 - managed by PCP 7. RLE pain with fluid accumulation - I&D'd. Purulent material drained. Feels much better. MAR reviewed * From Cardiac standpoint, the pt is stable to d/c home. The pt will f/u with Dr More' office within 4 wks. Pt. seen and eval. by me. I agree with the A/P by the THIRD GRADE TEACHER. Review of Systems - Review of Systems Constitutional: reports: no symptoms reported EENTM: reports: no symptoms reported Respiratory: reports: no symptoms reported Cardiac (ROS): reports: no symptoms reported ABD/GI: reports: no symptoms reported : reports: no symptoms reported Musculoskeletal: reports: no symptoms reported Skin: reports: no symptoms reported
[2018-08-04 15:24] VITALS: BP 106/53; TEMP 97.6
--- NOTE | 2018-08-04 16:30 | PDOC.EVN ---
Event Note - Event Note Event Note: DC summary #[id number]
--- NOTE | 2018-08-04 18:37 | DIS ---
DATE OF ADMISSION: 07/27/2018 DATE OF DISCHARGE: 08/04/2018 HISTORY OF PRESENT ILLNESS: This is a 73-year-old female, who was admitted to the hospital, seen very closely as well by Cardiology, Surgery, rehabilitation team as well as [facility] care team. The patient admitted to Internal Medicine Team, was found to have an abscess of her foot. The patient was taken to the OR, had an I and D done. The patient was also followed very closely with Cardiology throughout her stay. The patient had diuretics done and antibiotics done. The patient was given physical therapy as well as wound care. The patient was found to have Klebsiella pneumoniae on wound growth during her stay. It was pansensitive. The patient was discharged home on Augmentin. The patient was having significant improvement upon time of discharge, was ambulatory. The patient was given a walker as well as Augmentin. Home health care was arranged for wound care, PT, OT through Case Management. The patient upon at the time of discharge was stable. Denied any nausea, vomiting, diarrhea, constipation, chest pain, fevers, chills, or shortness of breath. ADMITTING DIAGNOSES: For the patient were cellulitis of lower extremity, non-ST segment elevation myocardial infarction, hypertension, and diabetes mellitus type 2. DISCHARGE DIAGNOSES: For the patient were cellulitis of lower extremity, non-ST segment elevation myocardial infarction, hypertension, diabetes mellitus type 2, and I and D performed. CONDITION: Stable. PROGNOSIS: Good. ACTIVITY: As tolerated with assistance as needed. DISCHARGE MEDICATIONS: See MAR. FOLLOWUP: Follow up with PCP, Podiatry, as well as Cardiology within 1 to 2 weeks. Case and plan discussed with the patient at length. She understood and agreed to this plan. Job ID: [id number]
--- NOTE | 2018-08-05 13:36 | EKG ---
Test Reason : Blood Pressure : / mmHG Vent. Rate : 096 BPM Atrial Rate : 096 BPM P-R Int : 156 ms QRS Dur : 096 ms QT Int : 362 ms P-R-T Axes : 082 060 198 degrees QTc Int : 457 ms Normal sinus rhythm Left atrial enlargement Left ventricular hypertrophy with repolarization abnormality Cannot rule out Inferior infarct , age undetermined Abnormal ECG Similar to 28-JUN-2018 Confirmed by CHASE TOLEDO DO ([id number]), brands editor TESSA BURTON ([id number]) on 08/05/2018 1:36:01 PM Referred By: Confirmed By:CHASE TOLEDO DO
== END 2018-08-04 16:05 | disposition home health service (06) | DRG 987 ==
LOC: ERS 16:54 → 2NO 18:48
PROVIDERS: ADMIT Emergency Medicine; ATTEND Emergency Medicine
PROC: 0J9N0ZZ Drainage of Right Lower Leg Subcutaneous Tissue and Fascia, Open Approach (ICD-10-PCS; principal; 2018-08-01)
DX: I21.4 Non-ST elevation (NSTEMI) myocardial infarction (principal); I50.43 Acute on chronic combined systolic (congestive) and diastolic (congestive) heart failure; I42.9 Cardiomyopathy, unspecified; L02.415 Cutaneous abscess of right lower limb; N17.9 Acute kidney failure, unspecified; R11.2 Nausea with vomiting, unspecified; I11.0 Hypertensive heart disease with heart failure; E11.51 Type 2 diabetes mellitus with diabetic peripheral angiopathy without gangrene; E78.00 Pure hypercholesterolemia, unspecified; B96.1 Klebsiella pneumoniae [K. pneumoniae] as the cause of diseases classified elsewhere; I25.10 Atherosclerotic heart disease of native coronary artery without angina pectoris; I25.2 Old myocardial infarction; I08.3 Combined rheumatic disorders of mitral, aortic and tricuspid valves; Z95.810 Presence of automatic (implantable) cardiac defibrillator; Z95.1 Presence of aortocoronary bypass graft; Z95.820 Peripheral vascular angioplasty status with implants and grafts; M10.9 Gout, unspecified; Z87.891 Personal history of nicotine dependence; Z66 Do not resuscitate; Z79.4 Long term (current) use of insulin; Z79.02 Long term (current) use of antithrombotics/antiplatelets; Z79.82 Long term (current) use of aspirin; Z88.0 Allergy status to penicillin
CPT/HCPCS: 36415; 36416; 71275; 76999; 80048; 80053; 82553; 83690; 83735; 83880; 84100; 84484; 85025; 85379; 87070; 87077; 87186; 87205; 93005; 96372; J0670; J0692; J1650; J1825; J2001; J2270; J2405; J2550; J2704; J3370; J3475; J7050; Q0162; Q9966

== ENCOUNTER 2018-08-14 13:16 | Outpatient (CLI) | payer MEDICARE, MEDICAID ==
[~2018-08-14 13:16] MED LIST changes: -ISOVUE-370 76%-LOCM 1 ML ONE; +Sodium Chloride 0.9% 15 ML NEB ONE
--- NOTE | 2018-08-14 17:24 | HP ---
HISTORY OF PRESENT ILLNESS: Ms. Carmen Smallwood is a very pleasant 73-year-old, who presents to the [facility] Center for evaluation of a wound of the right lateral lower leg subsequent to incision and drainage of a right lateral leg abscess on 08/01/[address] Pedro Tineo. The patient states that she will be receiving assistance with dressing changes by Home Health. The patient was admitted to [facility] on 07/27/2018 for right lower extremity cellulitis. Ms. Smallwood has no complaints today. She denies any fever or chills. PAST MEDICAL HISTORY: 1. Coronary artery disease. 2. Hypertension. 3. Diabetes mellitus. 4. History of gastroesophageal reflux disease. 5. Peripheral vascular disease. 6. Cardiomyopathy. 7. Anemia. 8. Valvular heart disease. 9. Gout. PAST SURGICAL HISTORY: 1. Coronary artery bypass grafting x4. 2. Hysterectomy. 3. I and D of right thigh abscess in 2006. 4. Bilateral oophorectomy. 5. Bilateral tubal ligation. 6. Left carotid endarterectomy with bovine pericardium patch angioplasty. 7. AICD placement. 8. Incision and drainage of large right lateral leg abscess on 08/01/2018 as per HPI. MEDICATIONS: 1. Levemir. 2. NovoLog. 3. Keflex. 4. Zetia. 5. Atorvastatin. 6. Coreg. 7. Plavix. 8. Lisinopril. 9. Potassium chloride. 10. Lasix. 11. Aspirin 81 mg. 12. Allopurinol. 13. Colchicine. ALLERGIES: PENICILLIN. SOCIAL HISTORY: Significant for tobacco use beginning at age 19. The patient states that she stopped smoking 30 years ago. The patient states that she smoked up to one pack of cigarettes every 1-1/2 days. The patient admits to the rare consumption of alcohol in the past. FAMILY HISTORY: Family history significant for diabetes mellitus. The patient states that her mother, brother, sister, and her son were all diagnosed with diabetes mellitus. Family history is negative for coronary artery disease. PHYSICAL EXAMINATION: VITAL SIGNS: Temperature 97.7, pulse 66, respirations 16, blood pressure 105/51. Accu-Chek 170. GENERAL: A 73-year-old female, lying on table in examination room, in no acute distress. HEENT: Normocephalic and atraumatic. NECK: No nuchal rigidity. CHEST: Clear to auscultation. CV: Regular rate and rhythm. ABDOMEN: Soft. EXTREMITIES: A wound of the right lateral lower leg is present, which measures approximately 4.7 x 0.9 cm. Granulation tissue is visible within the wound margins. No purulent drainage is associated with the wound. No erythema of the skin surrounding the wound is present. No maceration of the skin of the periwound is noted. A dorsalis pedis pulse or posterior tibial pulse is not palpable on the right. A dorsalis pedis pulse is however audible by Doppler. No significant edema of the right lower leg is appreciated on exam today. NEURO: Grossly nonfocal. ASSESSMENT AND PLAN: 1. Right lateral lower leg wound as described above. Dressing changes of Medihoney, 4x4s, Kerlix, and an Peter bandage will be initiated today. These dressing changes are to be performed three times per week after cleansing and irrigation with the assistance of Home Health. The patient is to continue p.o. antibiotics as previously prescribed. I will see Ms. Smallwood again in 2 weeks. The patient understands and is in agreement with the preceding treatment plan. 2. Coronary artery disease. 3. Hypertension. 4. Diabetes mellitus. The patient's Accu-Chek in clinic today is 170. The patient has been told that for optimal wound healing, her blood glucoses should remain below 150. 5. History of gastroesophageal reflux disease. 6. Peripheral vascular disease. 7. Cardiomyopathy. 8. Anemia. 9. Valvular heart disease. 10. Gout. Job ID: [id number]
== END 2018-08-14 13:17 | disposition home or self-care (01) ==
LOC: WCC 13:16
PROVIDERS: ATTEND Family Medicine
DX: E11.622 Type 2 diabetes mellitus with other skin ulcer (principal); L97.919 Non-pressure chronic ulcer of unspecified part of right lower leg with unspecified severity; I25.10 Atherosclerotic heart disease of native coronary artery without angina pectoris; I10 Essential (primary) hypertension; I73.9 Peripheral vascular disease, unspecified; I42.9 Cardiomyopathy, unspecified; I38 Endocarditis, valve unspecified; M10.9 Gout, unspecified; D64.9 Anemia, unspecified; Z87.19 Personal history of other diseases of the digestive system
CPT/HCPCS: 97139; 97602; G0463; 99203; A4218

== ENCOUNTER 2018-08-19 11:49 | Emergency (ER) | payer MEDICARE, MEDICAID ==
--- NOTE | 2018-08-19 12:44 | RAD ---
THREE VIEWS OF THE RIGHT FOOT: COMPARISON: None. HISTORY: Right great toe wound. Recent abscess drainage from the right leg. FINDINGS: Three views of the right foot show no evidence of acute fracture or dislocation. Vascular calcificat ions are seen. No osseous erosions are seen. IMPRESSION: No evidence of acute osseous abnormality. POS: [facility]
[2018-08-19 12:55] LABS: #Lymphocytes 1.5 thou/uL (1.20-3.40); #Monocytes 0.5 thou/uL (0.11-0.59); #Neutrophils 2.8 thou/uL (1.40-6.50); %Basophils 0.7 % (0.0-1.0); %Eosinophils 0.3 % (0.0-10.0); %Lymphocytes 31.8 % (21.0-51.0); %Monocytes 9.8 % (0.0-10.0); %Neutrophils 57.3 % (42.0-75.0); Hemoglobin 11.2 g/dL (12.0-16.0); Mean Corpuscular HGB CONC 30.9 g/dL (32.0-36.0); Mean Corpuscular Hemoglobin 30.7 pg (27.0-31.0); Mean Corpuscular Volume 99.6 fL (78.0-98.0); Mean Platelet Volume 10.4 fL (7.4-10.4); Platelet Count 113 thou/uL (130-400); RBC Distribution Width 16.5 % (11.5-14.5); Red Blood Cell (RBC) Count 3.63 mill/uL (4.20-5.40); White Blood Cell (WBC) Count 4.8 thou/uL (4.8-10.8)
[2018-08-19 13:06] LABS: ALT (SGPT) 15 U/L (8-55); AST (SGOT) 21 U/L (5-34); Albumin 3.5 g/dL (3.4-4.8); Alkaline Phosphatase 102 U/L (40-150); Anion Gap 14 mmol/L (10-20); BUN (Urea Nitrogen) 15 mg/dL (9.8-20.1); Bilirubin, Total 1.7 mg/dL (0.2-1.2); Calc. Creatinine Clearance 0 mL/min (70-130); Calcium 9.3 mg/dL (7.8-10.44); Carbon Dioxide 25 mmol/L (23-31); Chloride 97 mmol/L (98-107); Estimated GFR-MDRD 64; Globulin 3.3 g/dL (2.4-3.5); Glucose 236 mg/dL (83-110); Potassium 4.1 mmol/L (3.5-5.1); Protein, Total 6.8 g/dL (6.0-8.3); Sodium 132 mmol/L (136-145)
== END 2018-08-19 14:30 | disposition home or self-care (01) ==
LOC: ERS 11:49
DX: E11.621 Type 2 diabetes mellitus with foot ulcer (principal); L97.519 Non-pressure chronic ulcer of other part of right foot with unspecified severity; I11.0 Hypertensive heart disease with heart failure; I50.9 Heart failure, unspecified; I25.10 Atherosclerotic heart disease of native coronary artery without angina pectoris; I25.2 Old myocardial infarction; E78.5 Hyperlipidemia, unspecified; Z87.891 Personal history of nicotine dependence; Z79.82 Long term (current) use of aspirin; Z79.899 Other long term (current) drug therapy
CPT/HCPCS: 80053; 85025; 85652; 86140

== ENCOUNTER 2018-08-28 11:11 | Outpatient (CLI) | payer MEDICARE, MEDICAID ==
--- NOTE | 2018-08-28 17:18 | PRG ---
DATE OF SERVICE: 08/28/2018 SUBJECTIVE: Ms. Carmen Smallwood is a very pleasant 73-year-old, who presents to the Wound Center for evaluation of a wound of the right lateral lower leg subsequent to incision and drainage of a right lateral leg abscess on 08/01/2018, by Dr. Pedro Tineo. The patient has been receiving dressing changes of Medihoney with the assistance of Home Health. The patient was admitted to [facility] on 07/27/2018, for right lower extremity cellulitis. OBJECTIVE: VITAL SIGNS: Temperature 97.4, pulse 72, respirations 15, and blood pressure 141/58. Accu-Chek 98. EXTREMITIES: A wound of the right lateral lower leg is present, which measures approximately 5.0 x 1.8 cm. The dimensions of the wound at the time of the patient's last visit were approximately 4.7 x 0.9 cm. Granulation tissue is visible within the wound margins. No purulent drainage is associated with the wound. No erythema of the skin surrounding the wound is present. No maceration of the skin of the periwound is noted. Again, dorsalis pedis pulse or posterior tibial pulse is not palpable on the right. No significant edema of the right lower leg is appreciated on exam today. ASSESSMENT AND PLAN: 1. Right lateral lower leg wound as described above. Dressing changes of Medihoney, 4x4s, Kerlix, and an Peter bandage will be continued 3 times per week after cleansing and irrigation with the assistance of Home Health. Arrangements will be made for the patient to be seen in consultation by Dr. Destinee More for evaluation for percutaneous revascularization of the right lower extremity. The patient understands and is in agreement with the preceding treatment plan. I will see Ms. Smallwood again after she has been seen by Cardiology. 2. Coronary artery disease. 3. Hypertension. 4. Diabetes mellitus. The patient's Accu-Chek in clinic today is 98. The patient has been reminded that for optimal wound healing her blood glucoses should remain below 150. 5. History of gastroesophageal reflux disease. 6. Peripheral vascular disease. 7. Cardiomyopathy. 8. Anemia. 9. Valvular heart disease. 10. Gout. Job ID: [id number]
[2018-08-28] MEDS ORDERED: Lidocaine 2% 11 ML SYR ONE (18:00)
[2018-08-28] MEDS ORDERED: Sodium Chloride 0.9% 15 ML NEB ONE (18:00)
== END 2018-08-28 11:12 | disposition home or self-care (01) ==
LOC: WCC 11:11
PROVIDERS: ATTEND Family Medicine
DX: S81.801D Unspecified open wound, right lower leg, subsequent encounter (principal); I25.10 Atherosclerotic heart disease of native coronary artery without angina pectoris; I10 Essential (primary) hypertension; E11.9 Type 2 diabetes mellitus without complications; I73.9 Peripheral vascular disease, unspecified; D64.9 Anemia, unspecified; I42.9 Cardiomyopathy, unspecified; M10.9 Gout, unspecified; I38 Endocarditis, valve unspecified; Z87.19 Personal history of other diseases of the digestive system
CPT/HCPCS: 97602; A4218

== ENCOUNTER 2018-09-21 08:16 | Outpatient (CLI) | payer MEDICARE, MEDICAID ==
--- NOTE | 2018-09-21 12:04 | CT ---
CONTRAST ENHANCED CTA ABDOMEN AND PELVIS AND RUNOFF: HISTORY: Stenosis of precerebral arteries, peripheral vascular disease. FINDINGS: Contrast enhanced CTA abdomen, pelvis and runoff performed. The lung bases are unremarkable. No evidence of free intraperitoneal air seen. The liver, spleen, and pancreas are unremarkable. Gallstones seen in the gallbladder lumen, unchanged since the previous exam from 2015. Adrenal glands and kidneys are unremarkable. No evidence of periaortic lymphadenopathy seen. Atherosclerotic calcination seen extensively in the abdominal aorta. Some atherosclerotic calcificati ons also seen in the origin of the superior mesenteric artery. The origin of the celiac artery is patent. The inferior mesenteric artery is small, but appears to be patent. The renal arteries demonstrate mild bilateral origin renal artery stenosis. Right lower extremity: The right common and external iliac arteries are patent. Extensive atheroscler otic plaque seen along the right SFA resulting in multisegmental areas of right SFA stenosis. Flow is seen in the right popliteal artery. Flow is seen in the right peroneal artery. Atherosclerotic gil que seen in the proximal and midportion of the right anterior tibial artery. There is flow seen in the right anterior tibial artery distally. The right posterior tibial artery is occluded from the mid calf distal. Left lower extremity: There is complete occlusion of the left common iliac artery. Internal iliac col laterals provide some flow to the left distal common and external iliac artery. Good flow seen in the left common femoral artery. The left superficial femoral artery, femoral profunda are patent. Goo d flow seen in the left popliteal artery. Flow seen in the anterior tibial, posterior tibial and left peroneal arteries. IMPRESSION: 1. Extensive right superficial arterial disease. 2. Complete occlusion of the left common iliac artery. Transcribed Date/Time: 09/21/2018 12:29 PM
== END 2018-09-21 08:17 | disposition home or self-care (01) ==
LOC: SCSCT 08:16 → CT 08:17
PROVIDERS: ATTEND Thoracic Surgery (Cardiothoracic Vascular Surgery)
DX: I70.213 Atherosclerosis of native arteries of extremities with intermittent claudication, bilateral legs (principal); I65.8 Occlusion and stenosis of other precerebral arteries; I74.5 Embolism and thrombosis of iliac artery; I77.9 Disorder of arteries and arterioles, unspecified
CPT/HCPCS: 75635; 82565

== ENCOUNTER 2018-09-25 09:01 | Day surgery (SDC) | payer MEDICARE, MEDICAID ==
[2018-09-22 15:41] VITALS: BMI 31.3
[2018-09-25] MEDS ORDERED: Fentanyl 100 MCG/2 ML VIAL ONE ×3 (09:47→15:12)
[2018-09-25 09:58] LABS: #Basophils 0.1 thou/uL (0.0-0.2); #Lymphocytes 1.4 thou/uL (1.20-3.40); #Monocytes 0.5 thou/uL (0.11-0.59); #Neutrophils 4.3 thou/uL (1.40-6.50); %Basophils 1.1 % (0.0-1.0); %Eosinophils 0.8 % (0.0-10.0); %Lymphocytes 22.2 % (21.0-51.0); %Monocytes 8.1 % (0.0-10.0); %Neutrophils 67.8 % (42.0-75.0); Hemoglobin 10.3 g/dL (12.0-16.0); Mean Corpuscular HGB CONC 31.7 g/dL (32.0-36.0); Mean Corpuscular Hemoglobin 31.4 pg (27.0-31.0); Mean Corpuscular Volume 98.9 fL (78.0-98.0); Mean Platelet Volume 9.5 fL (7.4-10.4); Platelet Count 73 thou/uL (130-400); Red Blood Cell (RBC) Count 3.29 mill/uL (4.20-5.40); White Blood Cell (WBC) Count 6.4 thou/uL (4.8-10.8)
[2018-09-25 10:15] LABS: Platelet Clumps SLIGHT
[2018-09-25 10:18] LABS: Anion Gap 13 mmol/L (10-20); BUN (Urea Nitrogen) 7 mg/dL (9.8-20.1); Calc. Creatinine Clearance 79 mL/min (70-130); Carbon Dioxide 29 mmol/L (23-31); Chloride 97 mmol/L (98-107); Estimated GFR-MDRD 83; Glucose 142 mg/dL (83-110); Potassium 4.1 mmol/L (3.5-5.1); Sodium 135 mmol/L (136-145)
[2018-09-25] MEDS ORDERED: Heparin 10,000 UNITS/1 ML VIAL ONE (11:16)
[2018-09-25] MEDS ORDERED: Protamine Sulfate 50 MG/5 ML VIAL ONE (11:49)
[2018-09-25] MEDS ORDERED: Clopidogrel Bisulfate 75 MG TAB ONE (16:36)
--- NOTE | 2018-09-26 08:53 | OP ---
DATE OF PROCEDURE: 09/25/2018 PROCEDURE PERFORMED: Arteriography, right iliac system and right lower extremity runoff with stenting of the right distal common, proximal, and external iliac artery with an 8 x 40 Innova stent using 4.6 minutes of fluoroscopy, 44 mL of contrast. DESCRIPTION OF PROCEDURE: After prepping and draping, 1% lidocaine was used to infiltrate the right groin and ultrasound-guided puncture was carried out. A Bentson wire was inserted, but would not enter the aorta. Following this, a 4-Bolivian dilator and sheath were placed as a 5-Bolivian would not enter the artery. Angiograms were obtained including runoff of the right leg. Following this, 4-Bolivian angled tapered catheter was used to help the wire negotiate into the aorta. Following which, a Magic Torque wire was placed instead of a Bentson wire. A 6-Bolivian Marker sheath was then placed, angiography repeated, and an 8 x 40 Innova stent released across the lesion. It was dilated with a 7 x 40 balloon and then a 7 x 20 balloon with good result. FINDINGS: The patient had about a cross-sectional area of 70% stenosis of the proximal external iliac artery. The hypogastric artery filled from collaterals. Following completion, there was no residual stenosis. The right superficial femoral artery was small, about 3 mm with diffuse disease throughout its entire length. Popliteal artery was patent, giving rise to diseased peroneal and anterior tibial vessel with the peroneal being the dominant vessel to the foot and the anterior tibial disappearing prior. The patient tolerated the procedure well and sheath was removed. Job ID: [id number]
== END 2018-09-25 17:15 | disposition home or self-care (01) ==
LOC: CCL 09:01
PROVIDERS: ATTEND Thoracic Surgery (Cardiothoracic Vascular Surgery)
PROC: 047H3DZ Dilation of Right External Iliac Artery with Intraluminal Device, Percutaneous Approach (ICD-10-PCS; principal; 2018-09-25)
DX: E11.51 Type 2 diabetes mellitus with diabetic peripheral angiopathy without gangrene (principal); I70.213 Atherosclerosis of native arteries of extremities with intermittent claudication, bilateral legs; I10 Essential (primary) hypertension; E78.5 Hyperlipidemia, unspecified; I25.10 Atherosclerotic heart disease of native coronary artery without angina pectoris; Z87.891 Personal history of nicotine dependence; Z88.0 Allergy status to penicillin; Z79.899 Other long term (current) drug therapy; Z79.4 Long term (current) use of insulin; Z79.82 Long term (current) use of aspirin; Z79.02 Long term (current) use of antithrombotics/antiplatelets; Z95.1 Presence of aortocoronary bypass graft
CPT/HCPCS: 36245; 37236; 80048; 85025; 85347; C1725; C1769; C1887; J1644; J2720; J3010

== ENCOUNTER 2018-10-03 09:31 | Inpatient (IN) | payer MEDICARE, MEDICAID ==
[2018-10-02 16:50] LABS: Hemoglobin 9.7 g/dL (12.0-16.0); Mean Corpuscular HGB CONC 32.2 g/dL (32.0-36.0); Mean Corpuscular Hemoglobin 31.9 pg (27.0-31.0); Mean Corpuscular Volume 99.3 fL (78.0-98.0); Mean Platelet Volume 8.8 fL (7.4-10.4); Platelet Count 155 thou/uL (130-400); RBC Distribution Width 16.2 % (11.5-14.5); Red Blood Cell (RBC) Count 3.03 mill/uL (4.20-5.40); White Blood Cell (WBC) Count 4.6 thou/uL (4.8-10.8)
[2018-10-02 17:06] LABS: Anion Gap 11 mmol/L (10-20); BUN (Urea Nitrogen) 9 mg/dL (9.8-20.1); Calc. Creatinine Clearance 0 mL/min (70-130); Calcium 9.1 mg/dL (7.8-10.44); Carbon Dioxide 31 mmol/L (23-31); Chloride 96 mmol/L (98-107); Estimated GFR-MDRD 69; Glucose 168 mg/dL (83-110); Sodium 135 mmol/L (136-145)
[2018-10-02 17:36] LABS: Potassium 2.9 mmol/L (3.5-5.1)
[2018-10-03] MEDS ORDERED: Clindamycin/D5W 900 mg/50 ml Premix Bag ONE (10:32)
[2018-10-03] MEDS ORDERED: Protamine Sulfate 50 MG/5 ML VIAL ONE (10:48)
[2018-10-03] MEDS ORDERED: Heparin 5,000 UNITS/ML VIAL ONE (10:48)
[2018-10-03] MEDS ORDERED: Fentanyl 250 MCG/5 ML VIAL ONE (10:49)
[2018-10-03] MEDS ORDERED: Norepinephrine 8 MG/0.9% NS 250 ML ONE (11:30)
[2018-10-03] MEDS ORDERED: HYDROcodone/Acetaminophen 5/325 mg Tablet PO PRN (13:57)
[2018-10-03] MEDS ORDERED: Acetaminophen 325 MG TAB PO PRN (13:57)
[2018-10-03] MEDS ORDERED: Ondansetron PF 4 MG/2 ML Vial IVP PRN (13:57)
[2018-10-03] MEDS ORDERED: Fentanyl 100 MCG/2 ML VIAL SLOW IVP PRN (13:57)
[2018-10-03] MEDS ORDERED: Sodium Chloride 0.9% 1,000 ML IV SCH (14:00)
[2018-10-03] MEDS ORDERED: Promethazine HCl 25 MG/ML VIAL SLOW IVP PRN (14:24)
[2018-10-03] MEDS ORDERED: Promethazine HCl 25 MG/ML VIAL IM PRN (14:24)
[2018-10-03] MEDS ORDERED: PACU-Morphine 4MG/ML VIAL SLOW IVP PRN (14:24)
[2018-10-03] MEDS ORDERED: Ondansetron HCl/PF 4 MG/2 ML Vial IVP PRN (14:24)
[2018-10-03] MEDS ORDERED: Dexamethasone 20 MG/5 ML VIAL ONE (14:32)
[2018-10-03] MEDS ORDERED: Ondansetron PF 4 MG/2 ML Vial ONE (14:32)
[2018-10-03] MEDS ORDERED: Vecuronium 10 MG VIAL ONE (14:32)
[2018-10-03] MEDS ORDERED: Heparin 10,000 UNITS/ 10 ML VIAL ONE (14:32)
[2018-10-03] MEDS ORDERED: Glycopyrrolate 0.2 MG/ML 5 ML SYRINGE ONE (14:32)
[2018-10-03] MEDS ORDERED: Lidocaine 1% PF 5 ML VIAL ONE (14:32)
[2018-10-03] MEDS ORDERED: PROPOFOL 200 MG/20 ML VIAL ONE (14:32)
--- NOTE | 2018-10-03 15:30 | OP ---
DATE OF PROCEDURE: 10/03/2018 PREOPERATIVE DIAGNOSES: PAD with nonhealing wounds and rest pain, right leg. PROCEDURE PERFORMED: Right femoral to suprageniculate popliteal artery with 6 mm ringed graft. ANESTHESIA: General. EBL: 150. DESCRIPTION OF PROCEDURE: After adequate anesthesia have been obtained, incision was made in the right groin after prepping and draping. The common femoral artery was dissected out as was the origin of the profunda and SFA. There was also a posterior profunda branch medially. After controlling these, attention was turned to the distal medial thigh, where the popliteal artery was isolated, ligated, and dividing some deep venous branches to allow access to the artery. The artery was deep within the thigh and difficult to access. Tunnel was created. Heparin was then given. Arteriotomy performed distally after controlling with tapes. Following completion of this anastomosis in an end-to-side fashion with 6-0 Prolene suture, the proximal anastomosis was completed in a soft spot. Flow was then restored. Heparin partially reversed and after obtaining good hemostasis, the wound was irrigated, closed in layers. The patient is to be taken to the ICU in guarded condition. Job ID: [id number]
[2018-10-03] MEDS: Clindamycin/D5W 900 MG in Premix Bag 1 BAG IVPB SCH ×2 (18:08→22:38)
[2018-10-03] MEDS: Carvedilol 3.125 MG TAB PO SCH (18:09)
[2018-10-03] MEDS: Atorvastatin Calcium 40 MG TAB PO SCH (20:31)
[2018-10-03] MEDS: HYDROcodone/Acetaminophen 5/325 mg Tablet PO PRN (22:43)
[2018-10-04] MEDS: Clindamycin/D5W 900 MG in Premix Bag 1 BAG IVPB SCH ×2 (05:11→11:10)
[2018-10-04 07:39] LABS: Anion Gap 14 mmol/L (10-20); BUN (Urea Nitrogen) 10 mg/dL (9.8-20.1); Calc. Creatinine Clearance 79 mL/min (70-130); Calcium 8.6 mg/dL (7.8-10.44); Carbon Dioxide 25 mmol/L (23-31); Chloride 96 mmol/L (98-107); Estimated GFR-MDRD 81; Glucose 244 mg/dL (83-110); Potassium 3.6 mmol/L (3.5-5.1); Sodium 131 mmol/L (136-145)
[2018-10-04] MEDS ORDERED: Potassium Chloride 20 MEQ TAB PO SCH (08:00)
[2018-10-04] MEDS: Gentamicin Sulfate 100 MG in Premix Bag 1 BAG IVPB SCH (08:05)
[2018-10-04] MEDS: Furosemide 40 MG TAB PO SCH (08:06)
[2018-10-04 08:41] LABS: #Lymphocytes 0.6 thou/uL (1.20-3.40); #Monocytes 0.5 thou/uL (0.11-0.59); #Neutrophils 7.2 thou/uL (1.40-6.50); %Basophils 0.2 % (0.0-1.0); %Eosinophils 0.2 % (0.0-10.0); %Lymphocytes 7.5 % (21.0-51.0); %Monocytes 6.1 % (0.0-10.0); %Neutrophils 86.1 % (42.0-75.0); Hemoglobin 9.5 g/dL (12.0-16.0); Hypochromia SLIGHT = 6-15 cells (100X) (0-5/hpf); MDiff Complete? YES; Mean Corpuscular HGB CONC 30.7 g/dL (32.0-36.0); Mean Corpuscular Hemoglobin 30.7 pg (27.0-31.0); Platelet Clumps MODERATE; Platelet Morphology Comment PLT clumps seen-ADEQ; Polychromasia SLIGHT = 2-3 cells (100X) (0-2/hpf); RBC Distribution Width 16.3 % (11.5-14.5); Red Blood Cell (RBC) Count 3.09 mill/uL (4.20-5.40); White Blood Cell (WBC) Count 8.3 thou/uL (4.8-10.8)
[2018-10-04] MEDS ORDERED: Insulin Glargine 20 UNITS in Pre-Filled Syringe 1 EACH SC SCH ×2 (09:00→21:00)
[2018-10-04] MEDS: Carvedilol 3.125 MG TAB PO SCH ×2 (10:39→16:10)
[2018-10-04] MEDS: Potassium Chloride 20 MEQ TAB PO SCH ×2 (10:39→16:10)
[2018-10-04] MEDS: Lisinopril 2.5 MG TAB PO SCH (10:40)
[2018-10-04] MEDS: Polyethylene Glycol 3350 17 GM Packet PO SCH (10:40)
[2018-10-04] MEDS: Clopidogrel Bisulfate 75 MG TAB PO SCH (10:40)
[2018-10-04] MEDS: Aspirin Chewable 81 MG TAB PO SCH (10:40)
[2018-10-04] MEDS: Insulin Regular 300 UNITS/3 ML VIAL SC PRN ×2 (10:43)
[2018-10-04 12:14] VITALS: BMI 31.4
[2018-10-04] MEDS: Atorvastatin Calcium 40 MG TAB PO SCH (20:26)
[2018-10-04] MEDS: HYDROcodone/Acetaminophen 5/325 mg Tablet PO PRN (20:28)
[2018-10-05] MEDS: Gentamicin Sulfate 100 MG in Premix Bag 1 BAG IVPB SCH (05:05)
[2018-10-05] MEDS: HYDROcodone/Acetaminophen 5/325 mg Tablet PO PRN (07:22)
[2018-10-05] MEDS: Potassium Chloride 20 MEQ TAB PO SCH ×2 (09:16→16:27)
[2018-10-05] MEDS: Aspirin Chewable 81 MG TAB PO SCH (09:16)
[2018-10-05] MEDS: Clopidogrel Bisulfate 75 MG TAB PO SCH (09:16)
[2018-10-05] MEDS: Carvedilol 3.125 MG TAB PO SCH ×2 (09:23→16:27)
[2018-10-05] MEDS: Furosemide 40 MG TAB PO SCH (09:23)
[2018-10-05] MEDS: Polyethylene Glycol 3350 17 GM Packet PO SCH (09:32)
[2018-10-05] MEDS: Lisinopril 2.5 MG TAB PO SCH (09:32)
[2018-10-05] MEDS: Insulin Glargine 15 UNITS in Pre-Filled Syringe 1 EACH SC SCH (10:25)
[2018-10-05] MEDS ORDERED: Insulin Glargine 15 UNITS in Pre-Filled Syringe 1 EACH SC SCH (21:00)
[2018-10-05] MEDS: Atorvastatin Calcium 40 MG TAB PO SCH (21:01)
[2018-10-06] MEDS: HYDROcodone/Acetaminophen 5/325 mg Tablet PO PRN (00:48)
[2018-10-06 08:04] VITALS: BP 94/46; TEMP 97.5
[2018-10-06] MEDS: Carvedilol 3.125 MG TAB PO SCH (08:39)
[2018-10-06] MEDS: Aspirin Chewable 81 MG TAB PO SCH (08:39)
[2018-10-06] MEDS: Clopidogrel Bisulfate 75 MG TAB PO SCH (08:39)
[2018-10-06] MEDS: Potassium Chloride 20 MEQ TAB PO SCH (08:39)
[2018-10-06] MEDS: Furosemide 40 MG TAB PO SCH (08:39)
[2018-10-06] MEDS: Lisinopril 2.5 MG TAB PO SCH (08:40)
[2018-10-06] MEDS: Polyethylene Glycol 3350 17 GM Packet PO SCH (08:42)
[2018-10-06] MEDS: Insulin Glargine 15 UNITS in Pre-Filled Syringe 1 EACH SC SCH (09:23)
--- NOTE | 2018-10-06 10:35 | DIS ---
DATE OF ADMISSION: 10/03/2018 DATE OF DISCHARGE: 10/06/2018 Carmen Smallwood was admitted on 10/03, where she underwent a [place] right fem suprageniculate bypass for limb salvage with rest pain and gangrene of the lower leg. Postoperative course, she had rather immediate relief of her rest pain. She did have postoperative pain with some discomfort with standing related to her fem-pop bypass. She is afebrile. Sugars are doing well, and incisions look good. She will be discharged home on her admitting medicines to hold her lisinopril for some low blood pressures in the hospital. She will resume her Lasix twice a day as her weight has increased slightly in the hospital on once a day Lasix. She will receive a prescription for tramadol as well as for Cipro 500 b.i.d. for 1 week. She has been given instructions on wound care with particular attention to keeping the groin incision clean and dry. Job ID: [id number]
== END 2018-10-06 10:53 | disposition home or self-care (01) | DRG 253 ==
LOC: SURG A 09:31 → 2NO 17:43
PROVIDERS: ADMIT Thoracic Surgery (Cardiothoracic Vascular Surgery); ATTEND Thoracic Surgery (Cardiothoracic Vascular Surgery)
PROC: 041K0JL Bypass Right Femoral Artery to Popliteal Artery with Synthetic Substitute, Open Approach (ICD-10-PCS; principal; 2018-10-03)
DX: E11.52 Type 2 diabetes mellitus with diabetic peripheral angiopathy with gangrene (principal); I96 Gangrene, not elsewhere classified; I25.10 Atherosclerotic heart disease of native coronary artery without angina pectoris; I10 Essential (primary) hypertension; E66.9 Obesity, unspecified; E78.5 Hyperlipidemia, unspecified; Z90.710 Acquired absence of both cervix and uterus; Z79.899 Other long term (current) drug therapy; Z79.82 Long term (current) use of aspirin; Z79.891 Long term (current) use of opiate analgesic; Z79.4 Long term (current) use of insulin; Z95.1 Presence of aortocoronary bypass graft; Z68.32 Body mass index [BMI] 32.0-32.9, adult
CPT/HCPCS: 36415; 36416; 80048; 82947; 85025; 85027; 86850; 86900; 86901; J1100; J1580; J1642; J1644; J1815; J1825; J2001; J2405; J2704; J2720; J3010; J3370; J3490; J7620

== ENCOUNTER 2018-11-22 08:00 | Day surgery (SDC) | payer MEDICARE, MEDICAID ==
[2018-11-21 13:21] VITALS: BMI 28.1
[2018-11-22] MEDS ORDERED: Levofloxacin 500 mg/D5W 100 ml Premix Bag ONE (08:37)
[2018-11-22 08:40] LABS: #Basophils 0.1 thou/uL (0.0-0.2); #Lymphocytes 1.6 thou/uL (1.20-3.40); #Monocytes 0.5 thou/uL (0.11-0.59); #Neutrophils 3.8 thou/uL (1.40-6.50); %Eosinophils 0.7 % (0.0-10.0); %Lymphocytes 25.7 % (21.0-51.0); %Monocytes 8.5 % (0.0-10.0); Hemoglobin 11.4 g/dL (12.0-16.0); Mean Corpuscular HGB CONC 32.6 g/dL (32.0-36.0); Mean Corpuscular Hemoglobin 32.6 pg (27.0-31.0); Mean Platelet Volume 9.1 fL (7.4-10.4); Platelet Count 160 thou/uL (130-400); RBC Distribution Width 14.2 % (11.5-14.5); Red Blood Cell (RBC) Count 3.49 mill/uL (4.20-5.40)
[2018-11-22 09:01] LABS: Anion Gap 16 mmol/L (10-20); BUN (Urea Nitrogen) 21 mg/dL (9.8-20.1); Calc. Creatinine Clearance 64 mL/min (70-130); Calcium 9.5 mg/dL (7.8-10.44); Carbon Dioxide 24 mmol/L (23-31); Chloride 99 mmol/L (98-107); Estimated GFR-MDRD 71; Glucose 83 mg/dL (83-110); Potassium 4.1 mmol/L (3.5-5.1); Sodium 135 mmol/L (136-145)
[2018-11-22] MEDS ORDERED: Fentanyl 100 MCG/2 ML VIAL ONE (09:12)
[2018-11-22] MEDS ORDERED: Lidocaine 2% Jelly 5 ML TUBE ONE (09:12)
[2018-11-22] MEDS ORDERED: Morphine 4 MG/ML VIAL ONE (09:12)
[2018-11-22] MEDS ORDERED: Bupivacaine HCl 0.5%/Epinephrine 1:200,000/PF 30 ml Vial ONE (09:14)
[2018-11-22] MEDS ORDERED: Lidocaine 0.5%/Epinephrine 1:200,000 50 ml Vial ONE ×2 (09:16→09:19)
[2018-11-22] MEDS ORDERED: Bacitracin Zinc Ointment 30 gm TUBE ONE (10:24)
--- NOTE | 2018-11-22 10:46 | HP ---
HISTORY OF PRESENT ILLNESS: Carmen Bangura is a 73-year-old black female with venous stasis ulcer of right leg and a right great toe gangrene. She had been seeing Dr. Bailey, underwent a femoral-popliteal bypass and now her venous stasis ulcer is healing and her toe is healing, but causing a great amount of pain proximal phalanx with primary closure today. She understands risks and benefits, consents. The patient had initial abscess drained. ALLERGIES: PENICILLIN. SOCIAL HISTORY: Tobacco, none currently. Tobacco use in the past. Alcohol, none. MEDICATIONS: 1. Colchicine. 2. Tessalon. 3. Aspirin. 4. Bactrim. 5. Levemir. 6. NovoLog insulin. 7. Zetia. 8. Plavix. 9. Coreg. 10. Calcium. 11. Allopurinol. 12. Zestril. 13. Lasix. PAST SURGICAL HISTORY: Coronary artery bypass grafting, left carotid endarterectomy, hysterectomy, and right femoral-popliteal bypass. PAST MEDICAL HISTORY: Coronary artery disease; cardiomyopathy; hypertension; congestive heart failure; diabetes mellitus, on insulin; type 2 diabetes; dyslipidemia; chronic kidney disease; and recent myocardial infarction. On 05/27/2016, Dr. Carter performed a left carotid endarterectomy; on 08/01/2017, Dr. Bailey performed stenting of the right subclavian artery and left subclavian artery; on 08/01/2018, Dr. Tineo drained a large abscess, right lateral leg; on 09/25/2018, Dr. Bailey performed arteriogram and stenting of the right distal common iliac artery, external iliac artery; on 10/03/2018, right femoral-popliteal [id number] bypass with PTFE graft. PHYSICAL EXAMINATION: HEAD, EARS, EYES, NOSE, AND THROAT: Unremarkable. LUNGS: Clear to auscultation. CARDIAC: Regular rate and rhythm without murmur or gallop. ABDOMEN: Soft and nontender. EXTREMITIES: Wound in right lateral leg healing, granulating. Right great toe wound open, granulation tissue, hyperpigmentation, dopplerable pulses. LABORATORY DATA: BUN 21, creatinine 0.9, and sodium 139. White count . ASSESSMENT AND PLAN: 1. Right great toe with ischemic tip. We will plan amputation of the proximal phalanx and closure. She understands risks and benefits, consents. 2. Peripheral artery disease with bilateral subclavian artery stents; coronary bypass grafting; stenting of external iliac artery, right; and femoral-popliteal, right. 3. Diabetes mellitus, insulin dependent. Job ID: [id number]
--- NOTE | 2018-11-22 11:09 | OP ---
DATE OF PROCEDURE: 11/22/2018 PREOPERATIVE DIAGNOSIS: Peripheral arterial disease gangrene, right great toe, status post right iliac artery percutaneous transluminal angioplasty and stent and right femoral-popliteal with persistently painful toe, great right. POSTOPERATIVE DIAGNOSIS: Peripheral arterial disease gangrene, right great toe, status post right iliac artery percutaneous transluminal angioplasty and stent and right femoral-popliteal with persistently painful toe, great right. PROCEDURES PERFORMED: Amputation of the right great toe through the proximal phalanx with primary closure. good bleeding, good tissues. Status post femoral-popliteal above the knee by Dr. Bailey. ANESTHESIA: Ankle block, TIVA. DESCRIPTION OF PROCEDURE: The patient was taken to the operating room where under ankle block and TIVA, the right lower extremity was prepared with ChloraPrep and draped in routine fashion. Incision was made in the right great toe for an amputation at the mid proximal phalanx, carried down to skin and subcutaneous tissue, transecting the phalanx with a bone cutter, resecting it approximately with rongeurs. Connective tissue debrided sharply. There was bleeding controlled with cautery. Good hemostasis obtained with cautery. Wound irrigated. Subcutaneous tissue was approximated with 4-0 Monocryl, skin with 4-0 Prolene. Sterile dressings applied. The patient tolerated the procedure well. Job ID: [id number]
== END 2018-11-22 11:50 | disposition home or self-care (01) ==
LOC: SDC 08:00
PROVIDERS: ATTEND Specialist
PROC: 0Y6P0Z0 Detachment at Right 1st Toe, Complete, Open Approach (ICD-10-PCS; principal; 2018-11-22)
DX: I96 Gangrene, not elsewhere classified (principal); I13.0 Hypertensive heart and chronic kidney disease with heart failure and stage 1 through stage 4 chronic kidney disease, or unspecified chronic kidney disease; E11.22 Type 2 diabetes mellitus with diabetic chronic kidney disease; N18.9 Chronic kidney disease, unspecified; I50.9 Heart failure, unspecified; I25.10 Atherosclerotic heart disease of native coronary artery without angina pectoris; I25.2 Old myocardial infarction; I42.9 Cardiomyopathy, unspecified; E78.5 Hyperlipidemia, unspecified; Z87.891 Personal history of nicotine dependence; Z79.4 Long term (current) use of insulin; Z79.82 Long term (current) use of aspirin; Z79.899 Other long term (current) drug therapy; Z88.0 Allergy status to penicillin; Z95.1 Presence of aortocoronary bypass graft
CPT/HCPCS: 36415; 36416; 80048; 85025; 88305; J0670; J1956; J2001; J2270; J3010

== ENCOUNTER 2018-12-09 14:29 | Inpatient (IN) | payer MEDICARE, MEDICAID ==
[~2018-12-09 14:29] MED LIST changes: +ISOVUE-370 76%-LOCM 1 ML ONE; -Sodium Chloride 0.9% 15 ML NEB ONE
--- NOTE | 2018-12-09 15:14 | RAD ---
1 VIEW CHEST: Date: 12/09/18 HISTORY: Pain. Shortness of breath. COMPARISON: 07/08/18. FINDINGS: There are sternotomy wires. Single lead left-sided defibrillator is unchanged. There is cardiomegaly and pulmonary vascular prominence. Patchy interstitial opacities likely due to edema or infiltrate. N o pneumothorax. IMPRESSION: Congestive heart failure. POS: [facility]
[2018-12-09 15:49] LABS: Hemoglobin 11.9 g/dL (12.0-16.0); Mean Corpuscular HGB CONC 31.8 g/dL (32.0-36.0); Mean Corpuscular Hemoglobin 31.1 pg (27.0-31.0); Mean Corpuscular Volume 97.6 fL (78.0-98.0); RBC Distribution Width 14.1 % (11.5-14.5); Red Blood Cell (RBC) Count 3.82 mill/uL (4.20-5.40)
[2018-12-09 16:08] LABS: Lymphocytes 19 % (21-51); MDiff Complete? YES; Monocytes 5 % (0-10); Neutrophil 76 % (42-75); Ovalocytes SLIGHT = 2-5 cells (100X) (0-1/hpf); Platelet Clumps MODERATE; Platelet Morphology Comment PLT clumps seen-ADEQ
[2018-12-09 16:24] LABS: CKMB 1.4 ng/mL (0-6.6)
[2018-12-09 16:25] LABS: ALT (SGPT) 22 U/L (8-55); AST (SGOT) 38 U/L (5-34); Albumin 3.7 g/dL (3.4-4.8); Alkaline Phosphatase 165 U/L (40-150); Anion Gap 16 mmol/L (10-20); BUN (Urea Nitrogen) 14 mg/dL (9.8-20.1); Bilirubin, Total 1.8 mg/dL (0.2-1.2); CK (CPK) 53 U/L (29-168); Calc. Creatinine Clearance 0 mL/min (70-130); Calcium 9.8 mg/dL (7.8-10.44); Carbon Dioxide 29 mmol/L (23-31); Chloride 99 mmol/L (98-107); Estimated GFR-MDRD 85; Globulin 4.2 g/dL (2.4-3.5); Glucose 72 mg/dL (83-110); Potassium 3.9 mmol/L (3.5-5.1); Protein, Total 7.9 g/dL (6.0-8.3); Sodium 140 mmol/L (136-145)
--- NOTE | 2018-12-09 17:25 | CT ---
EXAM: CT angiogram of the chest including 3-D rendering: HISTORY: Shortness of breath intermittent chest pain COMPARISON: 07/27/2018 FINDINGS: There is adequate opacification of the pulmonary arteries. No evidence for aortic aneurysm. Status post coronary bypass grafting. No convincing CT evidence for acute pulmonary embolism. Minimal patchy groundglass opacity changes, possibly mild edema. No evidence for mediastinal mass or adenopathy. Bilateral pleural effusions. Cardiomegaly with evidence for right heart failure. 0.3 cm nodule in the right middle lobe. Stable. The visualized upper abdomen is unremarkable. IMPRESSION: No convincing CT evidence for acute pulmonary embolism. Bilateral pleural effusions and some vascular congestion and possible mild edema. Evidence for right heart failure.
[2018-12-09] MEDS ORDERED: Enoxaparin Sodium 80 MG/0.8 ML SYRINGE ONE (17:53)
[2018-12-09] MEDS ORDERED: Aspirin Chewable 81 MG TAB ONE (17:53)
[2018-12-09] MEDS ORDERED: Furosemide 40 MG/4 ML VIAL ONE (17:53)
[2018-12-09] MEDS ORDERED: HumaLOG 300 UNITS/3 ML VIAL SC PRN (18:48)
[2018-12-09] MEDS ORDERED: Acetaminophen 325 MG TAB PO PRN (18:48)
[2018-12-09] MEDS ORDERED: Dextrose 50% Abboject 50 ML SYRINGE SLOW IVP PRN (18:48)
[2018-12-09] MEDS ORDERED: Dextrose 5% in Water 1,000 ML IV PRN (18:48)
[2018-12-09 19:23] LABS: Critical Call Chem Troponin I RESULT DECREASING; Troponin I 0.309 ng/mL (< 0.028)
[2018-12-09 19:28] LABS: Critical Call Chem Troponin I RESULT DECREASING
[2018-12-09 19:47] LABS: CKMB 1.3 ng/mL (0-6.6)
--- NOTE | 2018-12-09 19:55 | HP ---
CHIEF COMPLAINT: Hard to catch my breath. PRIMARY CARE PROVIDER: Dr. Leonard. HISTORY OF PRESENT ILLNESS: Ms. Smallwood is a 73-year-old female with chronic systolic heart failure and an EF as of June 2018 of 15% to 20%, moderate to severe aortic stenosis, severe tricuspid regurgitation, peripheral vascular disease with multiple surgeries and recent toe amputation, diabetes mellitus, hypertension, dyslipidemia, who presents to the emergency room with the above complaint. The patient reports that it started abruptly yesterday and has progressively gotten worse. Reports that her breathing is worse with lying down that she slept poorly over night sitting up. She complains of substernal chest pressure last night. Denies any pain or radiation, and states that this is also better when she is sitting up. She did not try any medications for this, denies any missed medications, denies any precipitating factors. She also denies any other relieving factors aside from sitting up. She does have a history of systolic heart failure and was hospitalized here back in July for this. Her most recent procedure intervention was a toe amputation performed on November [address] Tineo, for which she denies any problems. The patient reports that her blood sugar was low overnight she was eating for this, but states in general she has been having some nausea, vomiting, anorexia, as well as a weight loss of 70 pounds over the past 4 months. She denies any change in the lower extremity swelling, denies any abdominal swelling. In the emergency room, the patient found to have acute decompensated heart failure and an elevated troponin for which she received 40 mg Lasix IV, aspirin 324 mg, Lovenox 1 mg/kg, and hospitalist called for admission. ALLERGIES: PENICILLIN. MEDICATIONS: Current medications were reconciled with the bottles and the patient; 1. Carvedilol 3.125 mg b.i.d. 2. Potassium chloride 20 mEq daily. 3. Plavix 75 mg daily. 4. Zofran 4 mg b.i.d. p.r.n. 5. Atorvastatin 40 mg at bedtime. 6. Lasix 20 mg two tablets b.i.d. 7. Lisinopril 2.5 mg daily. 8. Zetia 10 mg daily. 9. Aspirin 81 mg daily. 10. NovoLog insulin 10 units t.i.d. 11. Levemir 35 units at night. PAST MEDICAL HISTORY: 1. Chronic systolic heart failure with an EF of 15% to 20% based on echo in June 2018. 2. Coronary artery disease with history of coronary artery bypass graft. 3. Peripheral vascular disease with history of endarterectomy, femoral bypass, and subclavian stenting. 4. Diabetes mellitus. 5. Hypertension. 6. Dyslipidemia. 7. History of tobacco use, for which she quit 30 years ago. 8. Diabetic neuropathy of her feet. 9. Right lower extremity ulceration, receiving wound care. PAST SURGICAL HISTORY: 1. AICD. 2. Right great toe amputation on 11/22. 3. Right femoral bypass. 4. Subclavian stents. 5. External iliac artery stent. 6. Coronary artery bypass graft x4 vessels. 7. Left carotid endarterectomy. 8. Hysterectomy. SOCIAL HISTORY: The patient quit tobacco 30 years ago. She lives at home and her brothers live with her. She denies alcohol or tobacco. She states her surrogate decision maker is her brother Logan or Efren and she is a full code. FAMILY HISTORY: Significant for diabetes. REVIEW OF SYSTEMS: Positive for 70 pounds weight loss over 4 months, chronic lower extremity edema, nausea, vomiting, anorexia. Negative for any abdominal swelling or change in size of her abdomen, urinary changes. All remaining review of systems are reviewed and negative. PHYSICAL EXAMINATION: VITAL SIGNS: Blood pressure 115/47, pulse 76, temp 98.3, respirations 16, sats 100% on 2 L oxygen. GENERAL: She is awake, alert, responsive, but tired appearing, in no apparent distress. HEENT: Oral mucosa is pink, appears dry. NECK: Supple, nontender. LYMPHATICS: No palpable, cervical, or supraclavicular lymphadenopathy. LUNGS: Bibasilar rales. No audible wheezing or rhonchi. HEART: She has a 3/6 systolic ejection murmur throughout the precordium. ABDOMEN: Soft, present bowel sounds. Nontender. Nondistended. EXTREMITIES: She has 1+ pitting edema bilateral and hyperpigmentation of her lower extremities. She does have a right lateral lower extremity bandaged wound. SKIN: Hyperpigmentation of her lower extremities and edema. NEUROLOGIC: No focal deficits. PSYCH: Appears euthymic, linear, logical, goal directed, thought process. KO FINDINGS AND TEST RESULTS: Her CBC today 6, 11.9, 37.3, platelets were clumped. D-dimer 1.97. Chemistry 143.9, 99, 29, 14, 0.8, 72. Mag is 2. Calcium 9.8. T bilirubin 1.8, AST 38, ALT 22, alkaline phosphatase 165. CK-MB 1.4, troponin 0.324, BNP 7903. Total protein 7.9, albumin 3.7. IMAGING STUDIES: EKG is personally reviewed, which shows left ventricular hypertrophy, inverted T-waves throughout, abnormal R-wave progression, sinus rhythm within normal axis and normal intervals. Echocardiogram report reviewed from June 2018, EF of 15% to 20% with moderate to severe , severe TR, moderate AR. Chest x-ray is personally reviewed, which shows congestive heart failure. CT angiogram is negative for PE, it does show bilateral pleural effusions and some vascular congestion, possible mild edema consistent with right heart failure. IMPRESSION: 1. [id number]-[id number] myocardial infarction. 2. Acute decompensated systolic heart failure in a patient with known low ejection fraction. No clear precipitant. 3. Qdhrymke-om-cjwqce aortic stenosis, likely contributing to above. 4. Hypertension. 5. Dyslipidemia. 6. Diabetes mellitus, unknown control. 7. Diabetic neuropathy. 8. Right lower extremity ulceration, undergoing wound care. 9. Recent right great toe amputation. 10. Peripheral vascular disease with multiple surgeries to include carotid, arterial stenting, as well as femoral bypass. PLAN: 1. Admission in the hospital. 2. Cardiology consultation. 3. IV diuresis with Lasix and follow UOP, monitoring on telemetry. 4. Continuing her beta jerica, statin, dual anti-platelet therapy. 5. The patient received a dose of Lovenox here in the emergency room due to the elevated troponin. We will continue to trend the troponins as well as continue the Lovenox now. We will continue the full-dose Lovenox for now due to the NSTEMI. 6. We will hold the lisinopril for now as the patient did receive a contrast study today with goal of reducing the risk of an acute kidney injury. Anticipate, this can be added back in a day or so. 7. We will hold the long-acting insulin as the patient's blood sugar was in the 60s in the emergency room. We will use sliding scale insulin for now. Check a.c. at bedtime. 8. All the patient's medications at home are directed at her heart. We will continue this. 9. Wound care for the ulceration of the right lower extremity. 10. P.r.n. nitroglycerin for chest pressure. 11. DVT prophylaxis, not indicated because the patient is fully anticoagulated. We will request wound care for the right lower extremity wound. 12. GI prophylaxis not indicated. The patient will be written for heart healthy carbohydrate consistent diet with a fluid restriction of 1.5 L. 13. Code status is full. Surrogate decision makers are above. 14. The patient is at high risk for given age comorbidities and current presentation. She is also at high risk for readmissions given current condition. Job ID: [id number] [facility]
[2018-12-09] MEDS: Carvedilol 3.125 MG TAB PO SCH (21:21)
[2018-12-09] MEDS: Atorvastatin Calcium 40 MG TAB PO SCH (21:21)
[2018-12-09 22:18] LABS: Critical Call Chem Troponin I RESULT DECREASING; Troponin I 0.304 ng/mL (< 0.028)
[2018-12-10] MEDS ORDERED: diphenhydrAMINE 25 MG CAP PO SCH (01:30)
[2018-12-10] MEDS: Furosemide 40 MG/4 ML VIAL SLOW IVP SCH ×2 (06:02→16:41)
[2018-12-10 06:50] LABS: #Basophils 0.1 thou/uL (0.0-0.2); #Lymphocytes 1.2 thou/uL (1.20-3.40); #Monocytes 0.5 thou/uL (0.11-0.59); %Basophils 0.9 % (0.0-1.0); %Eosinophils 0.4 % (0.0-10.0); %Lymphocytes 20.7 % (21.0-51.0); %Monocytes 8.1 % (0.0-10.0); %Neutrophils 69.9 % (42.0-75.0); Mean Corpuscular HGB CONC 31.7 g/dL (32.0-36.0); Mean Corpuscular Hemoglobin 31.1 pg (27.0-31.0); Mean Corpuscular Volume 98.1 fL (78.0-98.0); Mean Platelet Volume 10.6 fL (7.4-10.4); Platelet Morphology Comment PLT clumps seen-ADEQ; RBC Distribution Width 13.9 % (11.5-14.5); Red Blood Cell (RBC) Count 3.53 mill/uL (4.20-5.40); White Blood Cell (WBC) Count 5.7 thou/uL (4.8-10.8)
[2018-12-10 07:06] LABS: Anion Gap 11 mmol/L (10-20); BUN (Urea Nitrogen) 11 mg/dL (9.8-20.1); Calc. Creatinine Clearance 76 mL/min (70-130); Calc. Creatinine Clearance 84 mL/min (70-130); Carbon Dioxide 30 mmol/L (23-31); Chloride 96 mmol/L (98-107); Estimated GFR-MDRD 85; Estimated GFR-MDRD Greater than 90; Glucose 146 mg/dL (83-110); Potassium 3.2 mmol/L (3.5-5.1); Sodium 134 mmol/L (136-145)
[2018-12-10] MEDS ORDERED: Potassium Chloride 20 MEQ TAB PO SCH (08:00)
[2018-12-10] MEDS: Carvedilol 3.125 MG TAB PO SCH ×2 (08:57→21:05)
[2018-12-10] MEDS: Aspirin 81 mg Enteric Coated Tablet PO SCH (08:57)
[2018-12-10] MEDS: Ezetimibe 10 MG TAB PO SCH (08:57)
[2018-12-10] MEDS: Clopidogrel Bisulfate 75 MG TAB PO SCH (08:57)
[2018-12-10] MEDS ORDERED: Enoxaparin Sodium 80 MG/0.8 ML SYRINGE SC SCH (09:00)
--- NOTE | 2018-12-10 09:51 | PDOC.PN ---
- Subjective Encounter Start Date: 12/10/18 (f/u heart failure) Encounter Start Time: 09:49 Subjective: Pt reports breathing is a little improved today, states she is unable -: to get comfortable and poor sleep overnight. Appetite remains -: decreased - Objective Resuscitation Status - Order Detail: 12/09/18 18:48 Resuscitation Status Routine Resuscitation Status: FULL: Full Resuscitation Discussed with: discussed with patient and her brother in the room Vital Signs & Weight: Vital Signs (12 hours) Temp Pulse Resp BP Pulse Ox 12/10/18 07:30 97.5 F L 88 18 161/64 H 95 12/10/18 03:58 97.8 F 88 20 130/60 95 12/09/18 23:25 98.3 F 84 20 134/61 100 Weight Weight 167 lb 8.821 oz I&O: 12/09/18 12/10/18 12/11/18 06:59 06:59 06:59 Intake Total 400 240 Output Total 1200 Balance -800 240 Result Diagrams: 12/10/18 06:21 12/10/18 06:21 Additional Labs: Accuchecks 12/10/18 12/09/18 12/09/18 05:28 20:42 18:36 POC Glucose 171 H 155 H 61 L EKG Reviewed by me: Yes (tele - sinus 70-90's) Phys Exam - Physical Examination Constitutional: NAD Respiratory: no wheezing, no rhonchi bibasilar rales Cardiovascular: RRR 3/6 systolic murmur unchanged Gastrointestinal: soft, non-tender, no distention, positive bowel sounds RLE lateral aspect with bandage in place for ulcer Dx/Plan (1) NSTEMI (non-ST elevated myocardial infarction) Code(s): I21.4 - NON-ST ELEVATION (NSTEMI) MYOCARDIAL INFARCTION Status: Acute (2) Acute on chronic combined systolic and diastolic ACC/AHA stage C congestive heart failure Code(s): I50.43 - ACUTE ON CHRONIC COMBINED SYSTOLIC AND DIASTOLIC HRT FAIL Status: Acute (3) Diabetic neuropathy Code(s): E11.40 - TYPE 2 DIABETES MELLITUS WITH DIABETIC NEUROPATHY, UNSP Status: Acute Qualifiers: Diabetes mellitus type: type 2 (4) Peripheral vascular disease Code(s): I73.9 - PERIPHERAL VASCULAR DISEASE, UNSPECIFIED Status: Chronic (5) Ulcer of right leg Code(s): L97.919 - NON-PRS CHRONIC ULC UNSP PRT OF R LOW LEG W UNSP SEVERITY Status: Acute Qualifiers: Non-pressure ulcer stage: unspecified non-pressure ulcer stage Qualified Code(s): L97.919 - Non-pressure chronic ulcer of unspecified part of right lower leg with unspecified severity (6) DMII (diabetes mellitus, type 2) Status: Chronic Qualifiers: Diabetes mellitus jail insulin use: with intermediate card tender use Qualified Code( s): E11.9 - Type 2 diabetes mellitus without complications; Z79.4 - nursing home ( current) use of insulin (7) HTN (hypertension), benign Code(s): I10 - ESSENTIAL (PRIMARY) HYPERTENSION Status: Chronic (8) Moderate aortic stenosis by prior echocardiogram Code(s): I35.0 - NONRHEUMATIC AORTIC (VALVE) STENOSIS Status: Chronic - Plan * NSTEMI * beta jerica, aspirin, plavix and full dose lovenox - Cards consult * Systolic HF with decompensation * IV lasix * increase potassium replacement * DM - last night's long acting insulin held due to low blood sugars - this morning blood sugar only 140 - hold on initiating until PO intake has increased * will continue SSI * dyslipidemia - continue current meds * * RLE ulcer - wound care * * dvt prophy - not indicated, pt fully anticoagulated * gi prophy - will start PPI as pt on dual anti-platelet therapy and full anticoagulation * code status full * * pt remains at high risk in current condtiion * reviewed plan of care with patient, no questions or further needs at end of eval.
--- NOTE | 2018-12-10 16:08 | CON ---
DATE OF CONSULTATION: 12/10/2018 REASON FOR CONSULTATION: CHF. PRIMARY TEST HOLE DRILLER: Dr. Destinee More. HISTORY OF PRESENT ILLNESS: Ms. Smallwood is a very pleasant 73-year-old female, who comes to the hospital for shortness of breath. She has a known severe systolic dysfunction, with an EF of 15% to 20% with moderate to severe aortic stenosis. She comes in for having last few days and noticed worsening of shortness of breath to the point where she could not breathe. She was admitted and has been already diuresed some and feels a little bit better but still short of breath lying flat. She denies any chest pain and tightness, only her shortness of breath. PAST MEDICAL HISTORY: 1. Severe ischemic cardiomyopathy, EF at 15%. 2. Chronically elevated troponin. 3. Chronic elevated BNP. 4. Severe TR. 5. Coronary artery disease. 6. Type 2 diabetes. 7. Hypertension. 8. Hyperlipidemia. 9. Obesity. 10. Peripheral vascular disease. 11. Hyperuricemia and gout. PAST SURGICAL HISTORY: 1. Hysterectomy. 2. CABG x4 in 2003. 3. Carotid endarterectomy in 2016. SOCIAL HISTORY: Quit smoking 10 years ago. No alcohol or drug use. OUTPATIENT MEDICATIONS: 1. Zofran. 2. Lisinopril 2.5 mg a day. 3. Coreg 3.125 b.i.d. 4. Atorvastatin 40 at bedtime. 5. Aspirin 81. 6. Insulin. 7. Furosemide 40 b.i.d. 8. Zetia 10 daily. 9. Plavix 75 a day. 10. Levemir 35 at bedtime. 11. Potassium chloride 20 mEq a day. ALLERGIES: PENICILLIN GIVES HER A RASH. FAMILY HISTORY: Noncontributory. REVIEW OF SYSTEMS: A 12-point review of systems was done and was all negative unless stated in the history of present illness. PHYSICAL EXAMINATION: VITAL SIGNS: Temperature 98.3, pulse 81, respiratory rate 20, saturating 100% on 2 L nasal cannula, blood pressure 140/65. GENERAL: Awake, alert, oriented x3. No distress. HEENT: Normocephalic atraumatic. NECK: Supple. Neck has JVP at about 14 cm of water. LUNGS: Have crackles at the bases. CARDIOVASCULAR: S1 and S2. No S3 or S4. There is grade 3/6 systolic murmur at the right upper sternal border. ABDOMEN: Soft. EXTREMITIES: 2+ edema. SKIN: Warm and dry. LABORATORY DATA: Laboratory work was reviewed. CBC, coags, and chemistries were reviewed. Troponin I is 0.3, 0.3, 0.3, 0.3 x4 unchanged. Potassium was 3.2. ASSESSMENT: 1. Acute on chronic systolic heart failure. 2. Severe ischemic cardiomyopathy. PLAN: 1. Continue IV diuresis for now. 2. Dr. More will follow up in the morning. Job ID: [id number]
[2018-12-10] MEDS: Potassium Chloride 20 MEQ TAB PO SCH (16:41)
[2018-12-10] MEDS: Atorvastatin Calcium 40 MG TAB PO SCH (21:05)
[2018-12-11 05:21] LABS: Anion Gap 16 mmol/L (10-20); BUN (Urea Nitrogen) 15 mg/dL (9.8-20.1); Calc. Creatinine Clearance 61 mL/min (70-130); Calcium 9.3 mg/dL (7.8-10.44); Carbon Dioxide 26 mmol/L (23-31); Chloride 97 mmol/L (98-107); Estimated GFR-MDRD 68; Glucose 184 mg/dL (83-110); Magnesium 1.4 mg/dL (1.6-2.6); Potassium 4.3 mmol/L (3.5-5.1); Sodium 135 mmol/L (136-145)
[2018-12-11] MEDS: Furosemide 40 MG/4 ML VIAL SLOW IVP SCH ×2 (05:27→13:28)
[2018-12-11] MEDS: Ondansetron ODT 4 MG TAB PO PRN (07:26)
[2018-12-11] MEDS: Potassium Chloride 20 MEQ TAB PO SCH ×2 (08:40→16:16)
[2018-12-11] MEDS: Clopidogrel Bisulfate 75 MG TAB PO SCH (08:41)
[2018-12-11] MEDS: Carvedilol 3.125 MG TAB PO SCH ×2 (08:41→20:43)
[2018-12-11] MEDS: Ezetimibe 10 MG TAB PO SCH (08:41)
[2018-12-11] MEDS: Aspirin 81 mg Enteric Coated Tablet PO SCH (08:41)
[2018-12-11] MEDS ORDERED: Enoxaparin Sodium 40 MG/0.4 ML SYRINGE SC SCH (09:00)
[2018-12-11] MEDS ORDERED: Lisinopril 2.5 MG TAB PO SCH (10:45)
[2018-12-11] MEDS ORDERED: Magnesium 2 GM/NS 0.9% 100 ML 2 GM in Premix Bag 1 BAG IVPB SCH (10:45)
--- NOTE | 2018-12-11 11:00 | PDOC.PN ---
- Subjective Encounter Start Date: 12/11/18 (f/u heart failure) Encounter Start Time: 10:56 Subjective: Pt had an episode of abd discomfort today followed by vomiting with -: relief. She denies any further abd sx. Breathing is slightly improved -: able to lay more flat - Objective Resuscitation Status - Order Detail: 12/09/18 18:48 Resuscitation Status Routine Resuscitation Status: FULL: Full Resuscitation Discussed with: discussed with patient and her brother in the room Vital Signs & Weight: Vital Signs (12 hours) Temp Pulse Resp BP BP Pulse Ox 12/11/18 08:35 98.1 F 81 18 118/59 L 94 L 12/11/18 03:48 97.4 F L 89 18 132/59 L 100 Weight Weight 163 lb 9.328 oz I&O: 12/10/18 12/11/18 12/12/18 06:59 06:59 06:59 Intake Total 400 1620 Output Total 1200 1500 Balance -800 120 Result Diagrams: 12/10/18 06:21 12/11/18 04:27 Additional Labs: Accuchecks 12/11/18 12/10/18 12/10/18 10:43 20:43 17:01 POC Glucose 276 H 177 H 163 H 12/10/18 10:54 POC Glucose 150 H EKG Reviewed by me: Yes (tele - sinus 90-100's) Phys Exam - Physical Examination Constitutional: NAD Respiratory: no wheezing, no rales, no rhonchi, clear to auscultation bilateral Cardiovascular: RRR 3/6 SAMMY unchanged Gastrointestinal: soft, non-tender, no distention, positive bowel sounds trace pitting edema bilateral Neurological: non-focal, moves all 4 limbs Psychiatric: normal affect Deviation from normal: bandage on RLE Dx/Plan (1) Acute on chronic combined systolic and diastolic ACC/AHA stage C congestive heart failure Code(s): I50.43 - ACUTE ON CHRONIC COMBINED SYSTOLIC AND DIASTOLIC HRT FAIL Status: Acute (2) Diabetic neuropathy Code(s): E11.40 - TYPE 2 DIABETES MELLITUS WITH DIABETIC NEUROPATHY, UNSP Status: Chronic Qualifiers: Diabetes mellitus type: type 2 (3) Peripheral vascular disease Code(s): I73.9 - PERIPHERAL VASCULAR DISEASE, UNSPECIFIED Status: Chronic (4) Ulcer of right leg Code(s): L97.919 - NON-PRS CHRONIC ULC UNSP PRT OF R LOW LEG W UNSP SEVERITY Status: Acute Qualifiers: Non-pressure ulcer stage: unspecified non-pressure ulcer stage Qualified Code(s): L97.919 - Non-pressure chronic ulcer of unspecified part of right lower leg with unspecified severity (5) DMII (diabetes mellitus, type 2) Status: Chronic Qualifiers: Diabetes mellitus fdc insulin use: with superintendent terminal use (6) HTN (hypertension), benign Code(s): I10 - ESSENTIAL (PRIMARY) HYPERTENSION Status: Chronic (7) Moderate aortic stenosis by prior echocardiogram Code(s): I35.0 - NONRHEUMATIC AORTIC (VALVE) STENOSIS Status: Chronic (8) Demand ischemia Code(s): I24.8 - OTHER FORMS OF ACUTE ISCHEMIC HEART DISEASE Status: Acute - Plan * Systolic HF with decompensation * IV lasix - continue * continue potassium replacement * replace magnesium IV * resume low dose lisinopril with hold parameters * appreciate Cards consult * elevated troponin c/w demand ischemia * DM - resume long acting insulin at low dose * will continue SSI * dyslipidemia - continue current meds * * RLE ulcer - wound care * * dvt prophy - change to scd's * * gi prophy - will d/c as pt off full anticoagulation * code status full * * pt remains at high risk in current condition * reviewed plan of care with patient, no questions or further needs at end of eval.
[2018-12-11] MEDS: HumaLOG 300 UNITS/3 ML VIAL SC PRN ×2 (11:11→17:24)
--- NOTE | 2018-12-11 12:33 | PDOC.CTH ---
Cardiology Progress Note - Subjective The pt seen and examined. No overnight events. No cardiac complaints. - Objective Vital Signs Temp Pulse Pulse Pulse Resp BP BP 12/11/18 11:50 86 85 123/55 L 118/62 12/11/18 11:26 97.7 F 85 20 12/11/18 08:35 98.1 F 81 18 12/11/18 03:48 97.4 F L 89 18 BP BP Pulse Ox 12/11/18 11:50 12/11/18 11:26 116/58 L 98 12/11/18 08:35 118/59 L 94 L 12/11/18 03:48 132/59 L 100 Admit Weight 169 lb 12.095 oz Weight 163 lb 9.328 oz 12/10/18 12/11/18 12/12/18 06:59 06:59 06:59 Intake Total 400 1620 Output Total 1200 1500 Balance -800 120 - Physical Examination General/Neuro: alert & oriented x3 Neck: no JVD present Lungs: CTA Heart: RRR Abdomen: soft Extremities: other: (No edema) - Telemetry Telemetry Rhythm: SR - Labs Result Diagrams: 12/10/18 06:21 12/11/18 04:27 Troponin/CKMB CK-MB (CK-2) 1.3 ng/mL (0-6.6) 12/09/18 18:42 Troponin I 0.304 ng/mL (< 0.028) H* 12/09/18 21:33 - Assessment/Plan 1. Acute on Chronic systolic HF - improving with Lasix 40mg IV BID; On Coreg 3.125mg BID and Lisinopril 2.5mg qd 2. Ischemic CMY with hx of AICD placement 3. CAD with hx of CABG - stable with Coreg, FADIA, statin, and ASA; On Plavix for hx of stent in subclavian. 4. HTN - well controlled 5. Hyperlipidemia - on Statin 6. DM type 2 - managed by PCP 7. Rt leg ulcer with s/p Rt 1st toe amputation - AUG reviewed Pt. seen and eval. by me. I agree with the A/P by the [employer] SUPERVISOR. She is still SOB but continuing to diurese. chest clear. RRR. Review of Systems - Review of Systems Constitutional: reports: no symptoms reported EENTM: reports: no symptoms reported Respiratory: reports: no symptoms reported Cardiac (ROS): reports: no symptoms reported ABD/GI: reports: no symptoms reported : reports: no symptoms reported Musculoskeletal: reports: no symptoms reported
[2018-12-11] MEDS ORDERED: Magnesium 2 GM/50 ML 2 GM in Premix Bag 1 BAG IVPB SCH (12:45)
[2018-12-11] MEDS: Atorvastatin Calcium 40 MG TAB PO SCH (20:43)
[2018-12-11] MEDS ORDERED: Insulin Glargine 10 UNITS in Pre-Filled Syringe 1 EACH SC SCH (21:00)
[2018-12-11] MEDS: traMADol HCl 50 MG TAB PO PRN (23:24)
[2018-12-12] MEDS: Furosemide 40 MG/4 ML VIAL SLOW IVP SCH ×2 (05:34→15:37)
[2018-12-12 06:30] LABS: Hemoglobin 10.2 g/dL (12.0-16.0); Platelet Count 114 thou/uL (130-400)
[2018-12-12 07:12] LABS: Anion Gap 13 mmol/L (10-20); BUN (Urea Nitrogen) 20 mg/dL (9.8-20.1); Calc. Creatinine Clearance 57 mL/min (70-130); Calcium 9.1 mg/dL (7.8-10.44); Carbon Dioxide 25 mmol/L (23-31); Chloride 101 mmol/L (98-107); Estimated GFR-MDRD 62; Glucose 154 mg/dL (83-110); Potassium 4.4 mmol/L (3.5-5.1); Sodium 135 mmol/L (136-145)
[2018-12-12] MEDS ORDERED: Lisinopril 2.5 MG TAB PO SCH (09:00)
[2018-12-12] MEDS: Aspirin 81 mg Enteric Coated Tablet PO SCH (09:19)
[2018-12-12] MEDS: Clopidogrel Bisulfate 75 MG TAB PO SCH (09:19)
[2018-12-12] MEDS: Carvedilol 3.125 MG TAB PO SCH ×2 (09:19→20:24)
[2018-12-12] MEDS: Ezetimibe 10 MG TAB PO SCH (09:19)
[2018-12-12] MEDS: Potassium Chloride 20 MEQ TAB PO SCH (09:19)
[2018-12-12] MEDS: HumaLOG 300 UNITS/3 ML VIAL SC PRN ×2 (09:20→17:15)
--- NOTE | 2018-12-12 09:34 | PDOC.PN ---
- Subjective Encounter Start Date: 12/12/18 (f/u heart failure) Encounter Start Time: 09:32 Subjective: Pt reports feeling better. Breathing improved, denies any n/v/abd pain -: some loose stool - better today. Denies any new sx - Objective Resuscitation Status - Order Detail: 12/09/18 18:48 Resuscitation Status Routine Resuscitation Status: FULL: Full Resuscitation Discussed with: discussed with patient and her brother in the room Vital Signs & Weight: Vital Signs (12 hours) Temp Pulse Resp BP BP Pulse Ox 12/12/18 08:04 97.9 F 72 18 121/58 L 96 12/12/18 05:31 74 113/59 L 12/12/18 03:45 97.6 F 78 17 94/55 L 97 Weight Admit Weight 169 lb 12.095 oz Weight 164 lb 0.383 oz I&O: 12/11/18 12/12/18 12/13/18 06:59 06:59 06:59 Intake Total 1620 1360 Output Total 1500 500 Balance 120 860 Result Diagrams: 12/12/18 05:55 12/12/18 05:55 Additional Labs: Accuchecks 12/12/18 12/11/18 12/11/18 05:40 20:07 16:48 POC Glucose 174 H 233 H 215 H 12/11/18 12/11/18 10:43 05:45 POC Glucose 276 H 190 H EKG Reviewed by me: Yes (tele - sinus 60-90's with pvc's) Phys Exam - Physical Examination Constitutional: NAD Respiratory: no wheezing, no rales, no rhonchi, clear to auscultation bilateral Cardiovascular: RRR, no significant murmur Gastrointestinal: soft, non-tender, no distention, positive bowel sounds Musculoskeletal: no edema Deviation from normal: wound RLE lateral aspect - wound care. Right toe amp -: with steristrips Dx/Plan (1) Acute on chronic combined systolic and diastolic ACC/AHA stage C congestive heart failure Code(s): I50.43 - ACUTE ON CHRONIC COMBINED SYSTOLIC AND DIASTOLIC HRT FAIL Status: Acute (2) Diabetic neuropathy Code(s): E11.40 - TYPE 2 DIABETES MELLITUS WITH DIABETIC NEUROPATHY, UNSP Status: Chronic Qualifiers: Diabetes mellitus type: type 2 (3) Peripheral vascular disease Code(s): I73.9 - PERIPHERAL VASCULAR DISEASE, UNSPECIFIED Status: Chronic (4) Ulcer of right leg Code(s): L97.919 - NON-PRS CHRONIC ULC UNSP PRT OF R LOW LEG W UNSP SEVERITY Status: Acute Qualifiers: Non-pressure ulcer stage: unspecified non-pressure ulcer stage Qualified Code(s): L97.919 - Non-pressure chronic ulcer of unspecified part of right lower leg with unspecified severity (5) DMII (diabetes mellitus, type 2) Status: Chronic Qualifiers: Diabetes mellitus custodial insulin use: with custodial use (6) HTN (hypertension), benign Code(s): I10 - ESSENTIAL (PRIMARY) HYPERTENSION Status: Chronic (7) Moderate aortic stenosis by prior echocardiogram Code(s): I35.0 - NONRHEUMATIC AORTIC (VALVE) STENOSIS Status: Chronic (8) Demand ischemia Code(s): I24.8 - OTHER FORMS OF ACUTE ISCHEMIC HEART DISEASE Status: Acute - Plan * * Systolic HF with decompensation * Appreciate cards consult - changed to PO lasix * reduce potassium to home dose * mag level normal today * continue beta-jerica, yoana-i, dual anti-platelet therapy * DM - increase lantus to 15 units HS and continue SSI * dyslipidemia - continue current meds * * RLE ulcer - wound care * * Anemia - lower today, bleeding from an injection site yesterday - recheck in AM. Pt was on full anticoagulation at beginning of hospitalization and changed to lovenox dvt prophy dosing with last dose yesterday. No further lovenox indicated * * dvt prophy - scd's * * gi prophy - not indicated * code status full * * pt remains at high risk in current condition * reviewed plan of care with patient, no questions or further needs at end of eval. * anticipate home in the next few days. * cardiac rehab
--- NOTE | 2018-12-12 11:29 | PDOC.CTH ---
Cardiology Progress Note - Subjective The pt seen and examined. No overnight events. No cardiac complaints. She stated she breaths better this AM. - Objective Vital Signs Temp Pulse Resp BP BP Pulse Ox 12/12/18 08:05 96 12/12/18 08:04 97.9 F 72 18 121/58 L 96 12/12/18 05:31 74 113/59 L 12/12/18 03:45 97.6 F 78 17 94/55 L 97 Admit Weight 169 lb 12.095 oz Weight 164 lb 0.383 oz 12/11/18 12/12/18 12/13/18 06:59 06:59 06:59 Intake Total 1620 1360 Output Total 1500 500 Balance 120 860 - Physical Examination General/Neuro: alert & oriented x3 Neck: no JVD present Lungs: CTA Heart: RRR Abdomen: soft Extremities: other: (No edema) - Labs Result Diagrams: 12/12/18 05:55 12/12/18 05:55 Troponin/CKMB CK-MB (CK-2) 1.3 ng/mL (0-6.6) 12/09/18 18:42 Troponin I 0.304 ng/mL (< 0.028) H* 12/09/18 21:33 - Assessment/Plan 1. Acute on Chronic systolic HF - improving with Lasix 40mg IV BID, which will be changed to PO BID; On Coreg 3.125mg BID and Lisinopril 2.5mg qd 2. Ischemic CMY with hx of AICD placement 3. CAD with hx of CABG - stable with Coreg, FADIA, statin, and ASA; On Plavix for hx of stent in subclavian. 4. HTN - well controlled 5. Hyperlipidemia - on Statin 6. DM type 2 - managed by PCP 7. Rt leg ulcer with s/p Rt 1st toe amputation - MAR reviewed Pt. seen and eval. by me. I agree with the A/P by the HATCHERY EMPLOYEE. I will add Zaroxolyn for better diuresis. She is + on volume. gjmays Review of Systems - Review of Systems Constitutional: reports: no symptoms reported EENTM: reports: no symptoms reported Respiratory: reports: no symptoms reported Cardiac (ROS): reports: no symptoms reported ABD/GI: reports: no symptoms reported
[2018-12-12] MEDS ORDERED: Metolazone 5 MG TAB PO SCH (13:00)
[2018-12-12] MEDS: Ondansetron ODT 4 MG TAB PO PRN (17:14)
[2018-12-12] MEDS: Atorvastatin Calcium 40 MG TAB PO SCH (20:24)
[2018-12-12] MEDS ORDERED: Insulin Glargine 15 UNITS in Pre-Filled Syringe 1 EACH SC SCH (21:00)
[2018-12-13 05:13] LABS: #Basophils 0.1 thou/uL (0.0-0.2); #Lymphocytes 1.6 thou/uL (1.20-3.40); #Monocytes 0.5 thou/uL (0.11-0.59); #Neutrophils 3.4 thou/uL (1.40-6.50); %Basophils 1.1 % (0.0-1.0); %Eosinophils 0.7 % (0.0-10.0); %Lymphocytes 29.5 % (21.0-51.0); %Monocytes 8.6 % (0.0-10.0); %Neutrophils 60.2 % (42.0-75.0); Hemoglobin 10.7 g/dL (12.0-16.0); Mean Corpuscular HGB CONC 31.5 g/dL (32.0-36.0); Mean Corpuscular Hemoglobin 31.3 pg (27.0-31.0); Mean Corpuscular Volume 99.3 fL (78.0-98.0); Mean Platelet Volume 10.3 fL (7.4-10.4); RBC Distribution Width 14.3 % (11.5-14.5); Red Blood Cell (RBC) Count 3.43 mill/uL (4.20-5.40); White Blood Cell (WBC) Count 5.6 thou/uL (4.8-10.8)
[2018-12-13 05:32] LABS: Anion Gap 13 mmol/L (10-20); BUN (Urea Nitrogen) 24 mg/dL (9.8-20.1); Calc. Creatinine Clearance 49 mL/min (70-130); Calcium 9.2 mg/dL (7.8-10.44); Carbon Dioxide 26 mmol/L (23-31); Chloride 99 mmol/L (98-107); Estimated GFR-MDRD 53; Glucose 94 mg/dL (83-110); Potassium 4.9 mmol/L (3.5-5.1); Sodium 133 mmol/L (136-145)
[2018-12-13 07:51] LABS: Platelet Count 118 thou/uL (130-400)
--- NOTE | 2018-12-13 08:20 | PDOC.CTH ---
Cardiology Progress Note - Subjective The pt seen and examined. No overnight events. No cardiac complaints. Last night Lasix dose was held due to hypotension. - Objective Vital Signs Temp Pulse Resp BP BP Pulse Ox 12/13/18 07:40 97.8 F 73 16 124/56 L 100 12/13/18 03:24 98.7 F 80 18 97/55 L 99 Admit Weight 169 lb 12.095 oz Weight 170 lb 3.15 oz 12/12/18 12/13/18 12/14/18 06:59 06:59 06:59 Intake Total 1360 720 Output Total 500 1200 Balance 860 -480 - Physical Examination General/Neuro: alert & oriented x3 Neck: no JVD present Lungs: CTA Heart: RRR Abdomen: soft Extremities: other: (1+ pitting BLE edema) - Telemetry Telemetry Rhythm: SR - Labs Result Diagrams: 12/13/18 04:49 12/13/18 04:49 Troponin/CKMB CK-MB (CK-2) 1.3 ng/mL (0-6.6) 12/09/18 18:42 Troponin I 0.304 ng/mL (< 0.028) H* 12/09/18 21:33 - Assessment/Plan 1. Acute on Chronic systolic HF - improving with one dose of Metolazone and Lasix 40mg PO BID; On Coreg 3.125mg BID and Lisinopril 2.5mg qd 2. Ischemic CMY with hx of AICD placement 3. CAD with hx of CABG - stable with Coreg, FADIA, statin, and ASA; On Plavix for hx of stent in subclavian. No candidate for any cardiac interventions for now. 4. HTN - well controlled 5. Hyperlipidemia - on Statin 6. DM type 2 - managed by PCP 7. Rt leg ulcer with s/p Rt 1st toe amputation - MAR reviewed pt. seen and eval. by me. I agree with the A/P by the RODDING MACHINE TENDER. She feels better today. No dyspnea. Chest clear. RRR.. gjmays Review of Systems - Review of Systems Constitutional: reports: no symptoms reported EENTM: reports: no symptoms reported Respiratory: reports: no symptoms reported Cardiac (ROS): reports: no symptoms reported ABD/GI: reports: no symptoms reported : reports: no symptoms reported
[2018-12-13] MEDS: Furosemide 40 MG TAB PO SCH ×2 (09:04→14:19)
[2018-12-13] MEDS: Ezetimibe 10 MG TAB PO SCH (09:04)
[2018-12-13] MEDS: Clopidogrel Bisulfate 75 MG TAB PO SCH (09:04)
[2018-12-13] MEDS: Aspirin 81 mg Enteric Coated Tablet PO SCH (09:04)
[2018-12-13] MEDS: Carvedilol 3.125 MG TAB PO SCH ×2 (09:04→20:55)
--- NOTE | 2018-12-13 10:40 | PDOC.PN ---
- Subjective Encounter Start Date: 12/13/18 (f/u HF) Encounter Start Time: 10:38 Subjective: Pt with abd discomfort yesterday/n/v, states she didnt feel well -: in general. Today vomited after taking the liquid potassium. - Objective Resuscitation Status - Order Detail: 12/09/18 18:48 Resuscitation Status Routine Resuscitation Status: FULL: Full Resuscitation Discussed with: discussed with patient and her brother in the room Vital Signs & Weight: Vital Signs (12 hours) Temp Pulse Resp BP BP Pulse Ox 12/13/18 07:40 97.8 F 73 16 124/56 L 100 12/13/18 03:24 98.7 F 80 18 97/55 L 99 Weight Admit Weight 169 lb 12.095 oz Weight 170 lb 3.15 oz I&O: 12/12/18 12/13/18 12/14/18 06:59 06:59 06:59 Intake Total 1360 720 Output Total 500 1200 Balance 860 -480 Result Diagrams: 12/13/18 04:49 12/13/18 04:49 Additional Labs: Accuchecks 12/13/18 12/12/18 12/12/18 05:25 20:14 16:56 POC Glucose 102 175 H 240 H 12/12/18 10:58 POC Glucose 153 H EKG Reviewed by me: Yes (tele - sinus 60-70's, pvc's) Phys Exam - Physical Examination Constitutional: NAD Respiratory: no wheezing, no rales, no rhonchi Cardiovascular: RRR 2/6 SAMMY throughout Gastrointestinal: soft, non-tender, no distention, positive bowel sounds 1+ edema in RLE,no edema in LLE Neurological: non-focal, moves all 4 limbs Deviation from normal: RLE wound is bandaged Dx/Plan (1) Acute on chronic combined systolic and diastolic ACC/AHA stage C congestive heart failure Code(s): I50.43 - ACUTE ON CHRONIC COMBINED SYSTOLIC AND DIASTOLIC HRT FAIL Status: Acute (2) Diabetic neuropathy Code(s): E11.40 - TYPE 2 DIABETES MELLITUS WITH DIABETIC NEUROPATHY, UNSP Status: Chronic Qualifiers: Diabetes mellitus type: type 2 (3) Peripheral vascular disease Code(s): I73.9 - PERIPHERAL VASCULAR DISEASE, UNSPECIFIED Status: Chronic (4) Ulcer of right leg Code(s): L97.919 - NON-PRS CHRONIC ULC UNSP PRT OF R LOW LEG W UNSP SEVERITY Status: Acute Qualifiers: Non-pressure ulcer stage: unspecified non-pressure ulcer stage Qualified Code(s): L97.919 - Non-pressure chronic ulcer of unspecified part of right lower leg with unspecified severity (5) DMII (diabetes mellitus, type 2) Status: Chronic Qualifiers: Diabetes mellitus fdc insulin use: with fdc use (6) HTN (hypertension), benign Code(s): I10 - ESSENTIAL (PRIMARY) HYPERTENSION Status: Chronic (7) Moderate aortic stenosis by prior echocardiogram Code(s): I35.0 - NONRHEUMATIC AORTIC (VALVE) STENOSIS Status: Chronic (8) Demand ischemia Code(s): I24.8 - OTHER FORMS OF ACUTE ISCHEMIC HEART DISEASE Status: Acute - Plan * * Systolic HF with decompensation * Appreciate cards consult - changed to PO lasix * change to tab potassium at home dosing of 20 meq daily * continue beta-jerica, yoana-i, dual anti-platelet therapy * DM - given n/v will d/c lantus for now, monitor blood sugars. Resume when blood sugars are elevated, home dosing is 35 units at night * Nausea may be related to blood pressures - low/low-normal, blood sugars, or medications. Continue prn meds. * dyslipidemia - continue current meds * * RLE ulcer - wound care * * Anemia - stable * dvt prophy - scd's * * gi prophy - not indicated * code status full * * pt remains at high risk in current condition * reviewed plan of care with patient, no questions or further needs at end of eval. * anticipate home in the next few days. * cardiac rehab .
--- NOTE | 2018-12-13 10:46 | PQF ---
CLINICAL DOCUMENTATION IMPROVEMENT CLARIFICATION FORM: ICD-10 Updated PLEASE DO AN ADDENDUM TO THE PROGRESS NOTE WITH ANY DOCUMENTATION UPDATES OR ADDITIONS AND CARRY THROUGH TO DC SUMMARY. THANK YOU. DATE: 12/13/18 ATTN: DR. MORA Please exercise your independent, professional judgment in responding to the clarification form. Clinical indicators are provided on the bottom of this form for your review Please check appropriate box(s): AMI TYPE: [ ] NSTEMI (OR type I) [ ] OR TYPE 2 [ ] D/T CHF EXACERBATION [XX ] Demand Ischemia without OR [ ] Other diagnosis [ ] Unable to determine In addition, please specify: Present on Admission (POA): [ ] Yes [ ] No [ ] Unable to determine CLINICAL INDICATORS - SIGNS / SYMPTOMS / LABS ER NOTE: "ACUTE CHF W/ ELEVATED TROPONIN" "SOB- WORSE WITH LYING FLAT" H&P (DR. MORA): "CHRONIC SYSTOLIC CHF; ACUTE DECOMPENSATED CHF WITH ELEVATED TROPONIN, 1+ PITTING EDEMA, NSTEMI W/ ACUTE DECOMPENSATED SYSTOLIC CHF." 12/10 (ASMITA): "ACUTE ON CHRONIC SYSTOLIC CHF, SEVERE ISCHEMIC WASTE SALVAGER" 12/11-12/12 (DR. MORA): "DEMAND ISCHEMIA- DECOMPENSATION OF SYSTOLIC CHF" 12/11 (ARATA): "ACUTE ON CHRONIC CHF" TROPONINS 0.324 / 0.307 / 0.309 / 0.304 RR 04/29 O2 SAT 93-100% ON ROOM AIR PULSE 76-99 RISKS: H/O CHF H/O OR H/O DIABETES TREATMENT: IV LASIX (ER) PO LASIX (12/13) ASPIRIN (ER-PRESENT) PLAVIX (12/10-PRESENT) CARDIAC MONITORING CARDIOLOGY CONSULT SERIAL LABS (This form is maintained as a part of the permanent medical record) 2014 [employer] All Rights Reserved MIKE [email or web address] Office: [phone] [facility]
[2018-12-13 13:06] VITALS: BMI 29.2
[2018-12-13] MEDS: traMADol HCl 50 MG TAB PO PRN (15:22)
[2018-12-13] MEDS: Atorvastatin Calcium 40 MG TAB PO SCH (20:55)
[2018-12-14 05:13] LABS: #Lymphocytes 1.3 thou/uL (1.20-3.40); #Monocytes 0.5 thou/uL (0.11-0.59); #Neutrophils 2.5 thou/uL (1.40-6.50); %Eosinophils 0.5 % (0.0-10.0); %Lymphocytes 29.7 % (21.0-51.0); %Monocytes 11.1 % (0.0-10.0); %Neutrophils 57.6 % (42.0-75.0); Hemoglobin 10.2 g/dL (12.0-16.0); Mean Corpuscular HGB CONC 31.7 g/dL (32.0-36.0); Mean Corpuscular Hemoglobin 31.3 pg (27.0-31.0); Mean Corpuscular Volume 98.6 fL (78.0-98.0); Mean Platelet Volume 10.6 fL (7.4-10.4); RBC Distribution Width 14.4 % (11.5-14.5); Red Blood Cell (RBC) Count 3.27 mill/uL (4.20-5.40); White Blood Cell (WBC) Count 4.3 thou/uL (4.8-10.8)
[2018-12-14 05:14] LABS: Platelet Morphology Comment PLT clumps seen-LOW
[2018-12-14 05:32] LABS: Anion Gap 13 mmol/L (10-20); BUN (Urea Nitrogen) 28 mg/dL (9.8-20.1); Calc. Creatinine Clearance 50 mL/min (70-130); Calcium 9.5 mg/dL (7.8-10.44); Carbon Dioxide 25 mmol/L (23-31); Chloride 98 mmol/L (98-107); Estimated GFR-MDRD 51; Glucose 143 mg/dL (83-110); Potassium 4.4 mmol/L (3.5-5.1); Sodium 132 mmol/L (136-145)
[2018-12-14] MEDS ORDERED: Sodium Chloride 0.65% Nasal 44 ML BOT EA NARE PRN (07:41)
[2018-12-14] MEDS ORDERED: Bisacodyl 10 MG SUPP PR PRN (07:41)
[2018-12-14] MEDS ORDERED: Diabetic Tussin 200 MG/10 ML UDCUP PO PRN (07:41)
[2018-12-14] MEDS ORDERED: Loratadine 10 MG TAB PO PRN (07:41)
[2018-12-14] MEDS ORDERED: Artificial Tears 18 DROP/0.9 ML EA EYE PRN (07:41)
[2018-12-14] MEDS ORDERED: HYDROcodone/Acetaminophen 5/325 mg Tablet PO PRN (07:41)
[2018-12-14] MEDS ORDERED: Zolpidem Tartrate 5 MG TAB PO PRN (07:41)
[2018-12-14] MEDS ORDERED: hydrALAZINE 20 MG/ML VIAL SLOW IVP PRN (07:41)
[2018-12-14] MEDS ORDERED: Cepastat Lozenges 1 LOZ PO PRN (07:41)
[2018-12-14] MEDS ORDERED: Senokot S 8.6-50 MG TAB PO PRN (07:41)
[2018-12-14] MEDS ORDERED: Loperamide HCl 2 MG CAP PO PRN (07:41)
[2018-12-14] MEDS ORDERED: Ondansetron PF 4 MG/2 ML Vial IVP PRN (07:41)
[2018-12-14] MEDS: Potassium Chloride 20 MEQ TAB PO SCH (09:37)
[2018-12-14] MEDS: Ondansetron ODT 4 MG TAB PO PRN (09:38)
[2018-12-14] MEDS: Carvedilol 3.125 MG TAB PO SCH ×2 (09:38→20:41)
[2018-12-14] MEDS: Clopidogrel Bisulfate 75 MG TAB PO SCH (09:38)
[2018-12-14] MEDS: Ezetimibe 10 MG TAB PO SCH (09:38)
[2018-12-14] MEDS: Furosemide 40 MG TAB PO SCH ×2 (09:38→14:00)
[2018-12-14] MEDS: Aspirin 81 mg Enteric Coated Tablet PO SCH (09:39)
--- NOTE | 2018-12-14 10:35 | PDOC.PN ---
- Subjective Encounter Start Date: 12/14/18 Encounter Start Time: 07:10 -: old records requested/rev Patient seen and examined. No new complaints. No overnight events she is on room air, she has nausea, no dyspnea, no chest pain - Objective Resuscitation Status - Order Detail: 12/09/18 18:48 Resuscitation Status Routine Resuscitation Status: FULL: Full Resuscitation Discussed with: discussed with patient and her brother in the room MAR Reviewed: Yes Vital Signs & Weight: Vital Signs (12 hours) Temp Pulse Resp BP Pulse Ox 12/14/18 07:43 98 F 70 18 126/59 L 97 12/14/18 03:37 97.7 F 69 20 121/59 L 91 L Weight Admit Weight 169 lb 12.095 oz Weight 165 lb 5.547 oz I&O: 12/13/18 12/14/18 12/15/18 06:59 06:59 06:59 Intake Total 720 1200 Output Total 1200 1175 Balance -480 25 Result Diagrams: 12/14/18 04:42 12/14/18 04:42 Additional Labs: Accuchecks 12/14/18 12/13/18 12/13/18 05:39 20:41 17:00 POC Glucose 167 H 159 H 132 H 12/13/18 11:04 POC Glucose 106 EKG Reviewed by me: Yes Phys Exam - Physical Examination Constitutional: NAD HEENT: PERRLA, moist MMs, sclera anicteric Neck: no JVD, supple Respiratory: no wheezing, no rales, no rhonchi Cardiovascular: RRR, no rub SM+ at parasternal,apex and aortic area Gastrointestinal: soft, non-tender, no distention, positive bowel sounds Musculoskeletal: no edema, pulses present wound noted on leg with dressing Neurological: non-focal, normal sensation Lymphatic: no nodes Psychiatric: normal affect, A&O x 3 Skin: no rash, normal turgor Dx/Plan (1) Acute on chronic combined systolic and diastolic ACC/AHA stage C congestive heart failure Code(s): I50.43 - ACUTE ON CHRONIC COMBINED SYSTOLIC AND DIASTOLIC HRT FAIL Status: Acute (2) Ulcer of right leg Code(s): L97.919 - NON-PRS CHRONIC ULC UNSP PRT OF R LOW LEG W UNSP SEVERITY Status: Acute Qualifiers: Non-pressure ulcer stage: unspecified non-pressure ulcer stage Qualified Code(s): L97.919 - Non-pressure chronic ulcer of unspecified part of right lower leg with unspecified severity (3) Anemia, normocytic normochromic Code(s): D64.9 - ANEMIA, UNSPECIFIED Status: Chronic (4) CAD (coronary artery disease) Code(s): I25.10 - ATHSCL HEART DISEASE OF [place] CORONARY ARTERY W/O ANG PCTRS Status: Chronic Qualifiers: Coronary Disease-Associated Artery/Lesion type: bypass graft Comment: Severe chronic disease not amenable to further surgical management, medical management only (5) DMII (diabetes mellitus, type 2) Status: Chronic Qualifiers: Diabetes mellitus nursing home insulin use: with rodent exterminator use (6) Diabetic neuropathy Code(s): E11.40 - TYPE 2 DIABETES MELLITUS WITH DIABETIC NEUROPATHY, UNSP Status: Chronic Qualifiers: Diabetes mellitus type: type 2 (7) Gouty arthropathy Code(s): M10.9 - GOUT, UNSPECIFIED Status: Chronic Comment: (8) H/O carotid artery stenosis Code(s): Z86.79 - PERSONAL HISTORY OF OTHER DISEASES OF THE CIRCULATORY SYSTEM Status: Chronic (9) HTN (hypertension), benign Code(s): I10 - ESSENTIAL (PRIMARY) HYPERTENSION Status: Chronic (10) Ischemic cardiomyopathy Code(s): I25.5 - ISCHEMIC CARDIOMYOPATHY Status: Chronic Comment: EF 15-20% , AICD in place (11) Moderate aortic regurgitation with LV dilation by prior echocardiogram Code(s): I35.1 - NONRHEUMATIC AORTIC (VALVE) INSUFFICIENCY; I51.7 - CARDIOMEGALY Status: Chronic (12) Moderate aortic stenosis by prior echocardiogram Code(s): I35.0 - NONRHEUMATIC AORTIC (VALVE) STENOSIS Status: Chronic (13) PAD (peripheral artery disease) Code(s): I73.9 - PERIPHERAL VASCULAR DISEASE, UNSPECIFIED Status: Chronic (14) Peripheral vascular disease Code(s): I73.9 - PERIPHERAL VASCULAR DISEASE, UNSPECIFIED Status: Chronic (15) Severe tricuspid regurgitation by prior echocardiogram Code(s): I07.1 - RHEUMATIC TRICUSPID INSUFFICIENCY Status: Chronic (16) Subclavian arterial stenosis Code(s): I77.1 - STRICTURE OF ARTERY Status: Chronic Comment: s/p B/L stenting 08/01/17 - Plan cont current plan of care * overall stable and improving * currently on optimum medical therapy, she has now compensated * will continue to adjust meds and treat her symptoms * medication reviewed as below * symptomatic treatment * expecting discharge tomorrow. Review of Systems - Review of Systems ENT: negative: Ear Pain, Ear Discharge, Nose Pain, Nose Discharge, Nose Congestion, Mouth Pain, Mouth Swelling, Throat Pain, Throat Swelling, Other Respiratory: negative: Cough, Dry, Shortness of Breath, Hemoptysis, SOB with Excertion, Pleuritic Pain, Sputum, Wheezing Cardiovascular: negative: chest pain, palpitations, orthopnea, paroxysmal nocturnal dyspnea, edema, light headedness, other Gastrointestinal: Nausea. negative: Vomiting, Abdominal Pain, Diarrhea, Constipation, Melena, Hematochezia, Other Genitourinary: negative: Dysuria, Frequency, Incontinence, Hematuria, Retention , Other Musculoskeletal: negative: Neck Pain, Shoulder Pain, Arm Pain, Back Pain, Hand Pain, Leg Pain, Foot Pain, Other Skin: negative: Rash, Lesions, Alessandro, Bruising, Other - Medications/Allergies Allergies/Adverse Reactions: Allergies Allergy/AdvReac Type Severity Reaction Status Date / Time Penicillins Allergy Rash Verified 10/02/18 16:05 Medications: Current Medications Acetaminophen (Tylenol) 650 mg PO Q6H PRN PRN Reason: Headache/Fever/Mild Pain (1-3) Last Admin: 12/12/18 12:24 Dose: 650 mg Hydrocodone Bitart/Acetaminophen ([place] 5/325) 1 tab PO Q4H PRN PRN Reason: Moderate Pain (4-6) Artificial Tears (Tears Naturale) 2 drop EA EYE PRN PRN PRN Reason: Dry Eyes Aspirin (Ecotrin) 81 mg PO DAILY [facility] Last Admin: 12/14/18 09:39 Dose: 81 mg Atorvastatin Calcium (Lipitor) 40 mg PO HS [facility] Last Admin: 12/13/18 20:55 Dose: 40 mg Bisacodyl (Dulcolax) 10 mg [place] DAILYPRN PRN PRN Reason: Constipation Carvedilol (Coreg) 3.125 mg PO BID [facility] Last Admin: 12/14/18 09:38 Dose: 3.125 mg Clopidogrel Bisulfate (Plavix) 75 mg PO DAILY [facility] Last Admin: 12/14/18 09:38 Dose: 75 mg Dextrose/Water (Dextrose 50%) 25 gm SLOW IVP PRN PRN PRN Reason: Hypoglycemia Ezetimibe (Zetia) 10 mg PO DAILY [facility] Last Admin: 12/14/18 09:38 Dose: 10 mg Furosemide (Lasix) 40 mg PO 0900,1400 [facility] Last Admin: 12/14/18 09:38 Dose: 40 mg Glucagon (Glucagon) 1 mg IM PRN PRN PRN Reason: Hypoglycemia Guaifenesin (Robitussin Sf) 200 mg PO Q4H PRN PRN Reason: Cough Hydralazine HCl (Apresoline) 10 mg SLOW IVP Q4H PRN PRN Reason: SBP > 180 and HR < 70 Dextrose/Water (D5w) 1,000 mls @ 0 mls/hr IV .Q0M PRN PRN Reason: Hypoglycemia Insulin Human Lispro (Humalog) 0 units SC .MILD SLIDING SCALE PRN PRN Reason: Mild Correctional Scale Last Admin: 12/12/18 17:15 Dose: 3 unit Insulin Human Lispro (Humalog) 0 units SC .BEDTIME SLIDING SC PRN PRN Reason: Bedtime Correctional Scale Lisinopril (Zestril) 2.5 mg PO DAILY [facility] Last Admin: 12/12/18 09:20 Dose: 2.5 mg Loperamide HCl (Imodium) 2 mg PO PRN PRN PRN Reason: Diarrhea/Loose Stools Loratadine (Claritin) 10 mg PO DAILYPRN PRN PRN Reason: Sinus Symptoms Ondansetron HCl (Zofran Odt) 4 mg PO Q6H PRN PRN Reason: Nausea/Vomiting Last Admin: 12/14/18 09:38 Dose: 4 mg Ondansetron HCl (Zofran) 4 mg IVP Q6H PRN PRN Reason: Nausea/Vomiting Potassium Chloride (K-Dur) 20 meq PO QAM-WM [facility] Last Admin: 12/14/18 09:37 Dose: 20 meq Senna/Docusate Sodium (Senokot S) 2 tab PO BID PRN PRN Reason: Constipation Sodium Chloride ([place] Nasal Flom 0.65%) 0 ml EA NARE QIDPRN PRN PRN Reason: Nasal Congestion Throat Lozenges (Cepastat Lozenges) 1 [place] PO Q2H PRN PRN Reason: Sore Throat Tramadol HCl (Ultram) 50 mg PO Q6H PRN PRN Reason: Moderate Pain (4-6) Last Admin: 12/13/18 15:22 Dose: 50 mg Zolpidem Tartrate (Ambien) 5 mg PO HSPRN PRN PRN Reason: Insomnia
--- NOTE | 2018-12-14 16:18 | PDOC.CTH ---
Cardiology Progress Note - Subjective The pt seen and examined. No overnight events. No cardiac complaints. - Objective Vital Signs Temp Pulse Resp BP BP Pulse Ox 12/14/18 15:42 98 F 72 16 121/57 L 98 12/14/18 11:54 98 F 72 16 125/58 L 98 12/14/18 07:43 98 F 70 18 126/59 L 97 Admit Weight 169 lb 12.095 oz Weight 165 lb 5.547 oz 12/13/18 12/14/18 12/15/18 06:59 06:59 06:59 Intake Total 720 1200 237 Output Total 1200 1175 Balance -480 25 237 - Physical Examination General/Neuro: alert & oriented x3 Neck: no JVD present Lungs: CTA Heart: RRR Abdomen: soft Extremities: other: - Telemetry Telemetry Rhythm: SR - Labs Result Diagrams: 12/14/18 04:42 12/14/18 04:42 Troponin/CKMB CK-MB (CK-2) 1.3 ng/mL (0-6.6) 12/09/18 18:42 Troponin I 0.304 ng/mL (< 0.028) H* 12/09/18 21:33 - Assessment/Plan 1. Acute on Chronic systolic HF - stable with Lasix 40mg PO BID; On Coreg 3.125mg BID and Lisinopril 2.5mg qd; 2. Ischemic CMY with hx of AICD placement 3. CAD with hx of CABG - stable with Coreg, FADIA, statin, and ASA; On Plavix for hx of stent in subclavian. No candidate for any cardiac interventions for now. 4. HTN - well controlled 5. Hyperlipidemia - on Statin 6. DM type 2 - managed by PCP 7. Rt leg ulcer with s/p Rt 1st toe amputation - AUG reviewed * october d/c home tomorrow if the pt is stable overnight. Pt. seen and eval. by me. I agree with the A/P by the MANAGER PEST. We have discussed the pt. together.[email or web address] Review of Systems - Review of Systems Constitutional: reports: no symptoms reported EENTM: reports: no symptoms reported Respiratory: reports: no symptoms reported Cardiac (ROS): reports: no symptoms reported ABD/GI: reports: no symptoms reported : reports: no symptoms reported Musculoskeletal: reports: no symptoms reported
[2018-12-14] MEDS: HumaLOG 300 UNITS/3 ML VIAL SC PRN (17:08)
[2018-12-14] MEDS: Atorvastatin Calcium 40 MG TAB PO SCH (20:41)
[2018-12-14] MEDS: traMADol HCl 50 MG TAB PO PRN (22:15)
[2018-12-15 06:34] LABS: Anion Gap 14 mmol/L (10-20); BUN (Urea Nitrogen) 30 mg/dL (9.8-20.1); Calc. Creatinine Clearance 45 mL/min (70-130); Calcium 9.5 mg/dL (7.8-10.44); Carbon Dioxide 26 mmol/L (23-31); Chloride 95 mmol/L (98-107); Estimated GFR-MDRD 48; Glucose 104 mg/dL (83-110); Potassium 4.1 mmol/L (3.5-5.1); Sodium 131 mmol/L (136-145)
[2018-12-15] MEDS: Aspirin 81 mg Enteric Coated Tablet PO SCH (09:32)
[2018-12-15] MEDS: Furosemide 40 MG TAB PO SCH ×2 (09:32→13:27)
[2018-12-15] MEDS: Carvedilol 3.125 MG TAB PO SCH (09:32)
[2018-12-15] MEDS: Clopidogrel Bisulfate 75 MG TAB PO SCH (09:32)
[2018-12-15] MEDS: Potassium Chloride 20 MEQ TAB PO SCH (09:32)
[2018-12-15] MEDS: Ezetimibe 10 MG TAB PO SCH (09:32)
--- NOTE | 2018-12-15 11:10 | PDOC.PN ---
- Subjective Encounter Start Date: 12/15/18 Encounter Start Time: 07:10 Patient seen and examined. No new complaints. No overnight events - Objective Resuscitation Status - Order Detail: 12/09/18 18:48 Resuscitation Status Routine Resuscitation Status: FULL: Full Resuscitation Discussed with: discussed with patient and her brother in the room MAR Reviewed: Yes Vital Signs & Weight: Vital Signs (12 hours) Temp Pulse Resp BP Pulse Ox 12/15/18 07:24 98 F 65 16 112/54 L 100 12/15/18 03:40 98.5 F 62 17 129/61 94 L 12/15/18 00:00 18 12/14/18 23:20 70 123/60 Weight Admit Weight 169 lb 12.095 oz Weight 162 lb 5.8 oz I&O: 12/14/18 12/15/18 12/16/18 06:59 06:59 06:59 Intake Total 1200 1217 Output Total 1175 2200 Balance 25 -983 Result Diagrams: 12/14/18 04:42 12/15/18 05:50 Additional Labs: Accuchecks 12/15/18 12/14/18 12/14/18 05:22 20:42 17:03 POC Glucose 129 H 158 H 182 H 12/14/18 10:59 POC Glucose 139 H EKG Reviewed by me: Yes Phys Exam - Physical Examination Constitutional: NAD HEENT: PERRLA, moist MMs, sclera anicteric Neck: no JVD, supple Respiratory: no wheezing, no rales, no rhonchi Cardiovascular: RRR, no significant murmur, no rub Gastrointestinal: soft, non-tender, no distention, positive bowel sounds Musculoskeletal: no edema, pulses present Neurological: non-focal, normal sensation, moves all 4 limbs Psychiatric: normal affect, A&O x 3 Skin: no rash, normal turgor Dx/Plan (1) Acute on chronic combined systolic and diastolic ACC/AHA stage C congestive heart failure Code(s): I50.43 - ACUTE ON CHRONIC COMBINED SYSTOLIC AND DIASTOLIC HRT FAIL Status: Acute (2) Ulcer of right leg Code(s): L97.919 - NON-PRS CHRONIC ULC UNSP PRT OF R LOW LEG W UNSP SEVERITY Status: Acute Qualifiers: Non-pressure ulcer stage: unspecified non-pressure ulcer stage Qualified Code(s): L97.919 - Non-pressure chronic ulcer of unspecified part of right lower leg with unspecified severity (3) Anemia, normocytic normochromic Code(s): D64.9 - ANEMIA, UNSPECIFIED Status: Chronic (4) CAD (coronary artery disease) Code(s): I25.10 - ATHSCL HEART DISEASE OF [place] CORONARY ARTERY W/O ANG PCTRS Status: Chronic Qualifiers: Coronary Disease-Associated Artery/Lesion type: bypass graft Comment: Severe chronic disease not amenable to further surgical management, medical management only (5) DMII (diabetes mellitus, type 2) Status: Chronic Qualifiers: Diabetes mellitus long chain quiller tender insulin use: with long chain quiller tender use (6) Diabetic neuropathy Code(s): E11.40 - TYPE 2 DIABETES MELLITUS WITH DIABETIC NEUROPATHY, UNSP Status: Chronic Qualifiers: Diabetes mellitus type: type 2 (7) Gouty arthropathy Code(s): M10.9 - GOUT, UNSPECIFIED Status: Chronic Comment: (8) H/O carotid artery stenosis Code(s): Z86.79 - PERSONAL HISTORY OF OTHER DISEASES OF THE CIRCULATORY SYSTEM Status: Chronic (9) HTN (hypertension), benign Code(s): I10 - ESSENTIAL (PRIMARY) HYPERTENSION Status: Chronic (10) Ischemic cardiomyopathy Code(s): I25.5 - ISCHEMIC CARDIOMYOPATHY Status: Chronic Comment: EF 15-20% , AICD in place (11) Moderate aortic regurgitation with LV dilation by prior echocardiogram Code(s): I35.1 - NONRHEUMATIC AORTIC (VALVE) INSUFFICIENCY; I51.7 - CARDIOMEGALY Status: Chronic (12) Moderate aortic stenosis by prior echocardiogram Code(s): I35.0 - NONRHEUMATIC AORTIC (VALVE) STENOSIS Status: Chronic (13) PAD (peripheral artery disease) Code(s): I73.9 - PERIPHERAL VASCULAR DISEASE, UNSPECIFIED Status: Chronic (14) Peripheral vascular disease Code(s): I73.9 - PERIPHERAL VASCULAR DISEASE, UNSPECIFIED Status: Chronic (15) Severe tricuspid regurgitation by prior echocardiogram Code(s): I07.1 - RHEUMATIC TRICUSPID INSUFFICIENCY Status: Chronic (16) Subclavian arterial stenosis Code(s): I77.1 - STRICTURE OF ARTERY Status: Chronic Comment: s/p B/L stenting 08/01/17 - Plan cont current plan of care * medication reviewed as below * symptomatic treatment * stable for discharge * see discharge dayana. Review of Systems - Review of Systems ENT: negative: Ear Pain, Ear Discharge, Nose Pain, Nose Discharge, Nose Congestion, Mouth Pain, Mouth Swelling, Throat Pain, Throat Swelling, Other Respiratory: negative: Cough, Dry, Shortness of Breath, Hemoptysis, SOB with Excertion, Pleuritic Pain, Sputum, Wheezing Cardiovascular: negative: chest pain, palpitations, orthopnea, paroxysmal nocturnal dyspnea, edema, light headedness, other Gastrointestinal: negative: Nausea, Vomiting, Abdominal Pain, Diarrhea, Constipation, Melena, Hematochezia, Other Genitourinary: negative: Dysuria, Frequency, Incontinence, Hematuria, Retention , Other Musculoskeletal: negative: Neck Pain, Shoulder Pain, Arm Pain, Back Pain, Hand Pain, Leg Pain, Foot Pain, Other - Medications/Allergies Allergies/Adverse Reactions: Allergies Allergy/AdvReac Type Severity Reaction Status Date / Time Penicillins Allergy Rash Verified 10/02/18 16:05 Medications: Current Medications Acetaminophen (Tylenol) 650 mg PO Q6H PRN PRN Reason: Headache/Fever/Mild Pain (1-3) Last Admin: 12/12/18 12:24 Dose: 650 mg Hydrocodone Bitart/Acetaminophen ([place] 5/325) 1 tab PO Q4H PRN PRN Reason: Moderate Pain (4-6) Artificial Tears (Tears Naturale) 2 drop EA EYE PRN PRN PRN Reason: Dry Eyes Aspirin (Ecotrin) 81 mg PO DAILY [facility] Last Admin: 12/15/18 09:32 Dose: 81 mg Atorvastatin Calcium (Lipitor) 40 mg PO HS [facility] Last Admin: 12/14/18 20:41 Dose: 40 mg Bisacodyl (Dulcolax) 10 mg HI DAILYPRN PRN PRN Reason: Constipation Carvedilol (Coreg) 3.125 mg PO BID [facility] Last Admin: 12/15/18 09:32 Dose: 3.125 mg Clopidogrel Bisulfate (Plavix) 75 mg PO DAILY [facility] Last Admin: 12/15/18 09:32 Dose: 75 mg Dextrose/Water (Dextrose 50%) 25 gm SLOW IVP PRN PRN PRN Reason: Hypoglycemia Ezetimibe (Zetia) 10 mg PO DAILY [facility] Last Admin: 12/15/18 09:32 Dose: 10 mg Furosemide (Lasix) 40 mg PO 0900,1400 [facility] Last Admin: 12/15/18 09:32 Dose: 40 mg Glucagon (Glucagon) 1 mg IM PRN PRN PRN Reason: Hypoglycemia Guaifenesin (Robitussin Sf) 200 mg PO Q4H PRN PRN Reason: Cough Hydralazine HCl (Apresoline) 10 mg SLOW IVP Q4H PRN PRN Reason: SBP > 180 and HR < 70 Dextrose/Water (D5w) 1,000 mls @ 0 mls/hr IV .Q0M PRN PRN Reason: Hypoglycemia Insulin Human Lispro (Humalog) 0 units SC .MILD SLIDING SCALE PRN PRN Reason: Mild Correctional Scale Last Admin: 12/14/18 17:08 Dose: 2 unit Insulin Human Lispro (Humalog) 0 units SC .BEDTIME SLIDING SC PRN PRN Reason: Bedtime Correctional Scale Lisinopril (Zestril) 2.5 mg PO DAILY [facility] Last Admin: 12/12/18 09:20 Dose: 2.5 mg Loperamide HCl (Imodium) 2 mg PO PRN PRN PRN Reason: Diarrhea/Loose Stools Loratadine (Claritin) 10 mg PO DAILYPRN PRN PRN Reason: Sinus Symptoms Ondansetron HCl (Zofran Odt) 4 mg PO Q6H PRN PRN Reason: Nausea/Vomiting Last Admin: 12/14/18 09:38 Dose: 4 mg Ondansetron HCl (Zofran) 4 mg IVP Q6H PRN PRN Reason: Nausea/Vomiting Potassium Chloride (K-Dur) 20 meq PO QAM-WM [facility] Last Admin: 12/15/18 09:32 Dose: 20 meq Senna/Docusate Sodium (Senokot S) 2 tab PO BID PRN PRN Reason: Constipation Sodium Chloride ([place] Nasal [place] 0.65%) 0 ml EA NARE QIDPRN PRN PRN Reason: Nasal Congestion Throat Lozenges (Cepastat Lozenges) 1 [place] PO Q2H PRN PRN Reason: Sore Throat Tramadol HCl (Ultram) 50 mg PO Q6H PRN PRN Reason: Moderate Pain (4-6) Last Admin: 12/14/18 22:15 Dose: 50 mg Zolpidem Tartrate (Ambien) 5 mg PO HSPRN PRN PRN Reason: Insomnia
[2018-12-15 12:38] VITALS: BP 123/56; TEMP 97.5
--- NOTE | 2018-12-15 12:46 | DIS ---
DATE OF ADMISSION: 12/09/2018 DATE OF DISCHARGE: 12/15/2018 PRIMARY CARE PHYSICIAN: Dr. Xavier Leonard. PRIMARY DISCHARGE DIAGNOSIS: Acute on chronic combined systolic and diastolic congestive heart failure. SECONDARY DISCHARGE DIAGNOSES: Right leg ulcer, normocytic normochromic anemia, coronary artery disease, diabetic neuropathy, diabetes type 2, gouty arthropathy, peripheral arterial disease, history of carotid artery stenosis, hypertension, ischemic cardiomyopathy, moderate aortic regurgitation, moderate aortic stenosis, severe tricuspid regurgitation, and subclavian arterial stenosis. PRIMARY PROCEDURE/OPERATION: None. RADIOLOGICAL INVESTIGATION: Chest x-ray, CT angiography. SIGNIFICANT LABORATORY DATA: WBC 4.3, hemoglobin 10.2, and platelets 118. D-dimer 1.97. Sodium 131, creatinine 1.32. DISCHARGE MEDICATIONS: 1. Lipitor 40 mg p.o. q.h.s. 2. Zetia 10 mg daily. 3. Lasix 40 mg b.i.d. 4. NovoLog insulin 3 units subcu t.i.d. with meals. 5. Levemir insulin 35 units subcu at bedtime. 6. Lisinopril 2.5 mg p.o. daily. 7. Zofran 4 mg b.i.d. p.r.n. 8. Potassium chloride 20 mEq p.o. daily. 9. Aspirin 81 mg p.o. daily. 10. Coreg 3.125 mg b.i.d. 11. Plavix 75 mg p.o. daily. CONTRAINDICATION: None. CODE STATUS: Full code. 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 TEST RESULTS PENDING ON DISCHARGE: None. ALLERGIES: PENICILLIN. DISCHARGE PLAN: Posthospital, the patient will follow up with [facility] on December 21, 2018, at 2:20 p.m. The patient will follow up with Dr. Tineo on December 19, 2018, at 11:50 a.m. The patient has appointment with Dr. Xavier Leonard on December 18, 2018, at 1:15 p.m. The patient has appointment with Cardiology on December 27, 2018, at 3:15 p.m. HOSPITAL COURSE: A 73-year-old female with above-mentioned medical problem, who was admitted by Dr. Mariah Hidalgo. Please see her H and P for further details. The patient was admitted for CHF exacerbation. This patient was having increasing shortness of breath, nausea, as well as lower extremity edema. She had elevated D-dimer and that is why CT angio was done, which was negative for PE. During this admission, the patient was treated with IV Lasix with significant improvement in her CHF status. The patient's hospital course was prolonged because the patient was complaining of nausea, required symptomatic treatment. The patient is up to her baseline. She is euvolemic, and by the time of discharge, the patient's symptoms completely resolved, and she is ready to go home. During this admission, there was no new medication prescribed. All the medications were as per previous. We have discussed with the patient about insulin requirement while in hospital as the patient's p.o. intake was poor and that is why we hold long- acting insulin, but we advised her to resume that insulin as per previous home dosage, and necessary hypoglycemia prevention was discussed with the patient. The patient is seen and examined at bedside today. Please see my progress note from today for further detail. Job ID: [id number]
[2018-12-15] MEDS: HumaLOG 300 UNITS/3 ML VIAL SC PRN (12:48)
--- NOTE | 2018-12-15 14:29 | PDOC.CTH ---
Cardiology Progress Note - Subjective The pt seen and examined. No overnight events. No cardiac complaints. - Objective Vital Signs Temp Pulse Resp BP Pulse Ox 12/15/18 12:08 97.5 F L 58 L 16 123/56 L 100 12/15/18 07:24 98 F 65 16 112/54 L 100 12/15/18 03:40 98.5 F 62 17 129/61 94 L Admit Weight 169 lb 12.095 oz Weight 162 lb 5.8 oz 12/14/18 12/15/18 12/16/18 06:59 06:59 06:59 Intake Total 1200 1217 Output Total 1175 2200 Balance 25 -983 - Physical Examination General/Neuro: alert & oriented x3 Neck: no JVD present Lungs: CTA Heart: RRR Abdomen: soft Extremities: other: (non pitting edema to LLE) - Telemetry Telemetry Rhythm: SR - Labs Result Diagrams: 12/14/18 04:42 12/15/18 05:50 Troponin/CKMB CK-MB (CK-2) 1.3 ng/mL (0-6.6) 12/09/18 18:42 Troponin I 0.304 ng/mL (< 0.028) H* 12/09/18 21:33 - Assessment/Plan 1. Acute on Chronic systolic HF - stable with Lasix 40mg PO BID; On Coreg 3.125mg BID and Lisinopril 2.5mg qd; 2. Ischemic CMY with hx of AICD placement 3. CAD with hx of CABG - stable with Coreg, FADIA, statin, and ASA; On Plavix for hx of stent in subclavian. No candidate for any cardiac interventions for now. 4. HTN - well controlled 5. Hyperlipidemia - on Statin 6. DM type 2 - managed by PCP 7. Rt leg ulcer with s/p Rt 1st toe amputation - MAR reviewed * The pt is stable to d/c home. Will f/u with Dr More' office within 2 wks. * per the pt, she will f/u with Dr Bailey on 12/21/2018 Pt. seen and eval. by me. I agree with the A/P by the BANDAGE WRAPPING MACHINE OPERATOR. She is stable for d/ c. Chest clear. RRR. I discussed fluid management with the pt. Review of Systems - Review of Systems Constitutional: reports: no symptoms reported EENTM: reports: no symptoms reported Respiratory: reports: no symptoms reported Cardiac (ROS): reports: no symptoms reported ABD/GI: reports: no symptoms reported : reports: no symptoms reported
--- NOTE | 2018-12-16 22:49 | EKG ---
Test Reason : Blood Pressure : / mmHG Vent. Rate : 090 BPM Atrial Rate : 090 BPM P-R Int : 166 ms QRS Dur : 096 ms QT Int : 368 ms P-R-T Axes : 083 053 237 degrees QTc Int : 450 ms Normal sinus rhythm Possible Left atrial enlargement Left ventricular hypertrophy Abnormal ECG Confirmed by GIAN MCKINNON ([id number]), editor magazine TESSA BURTON ([id number]) on 12/16/2018 10:48:53 PM Referred By: Confirmed By:GIAN MCKINNON
== END 2018-12-15 14:47 | disposition home or self-care (01) | DRG 292 ==
LOC: ERS 14:29 → 2NO 19:47
PROVIDERS: ADMIT Family Medicine; ATTEND Family Medicine
DX: I11.0 Hypertensive heart disease with heart failure (principal); I24.8 Other forms of acute ischemic heart disease; L97.919 Non-pressure chronic ulcer of unspecified part of right lower leg with unspecified severity; I50.23 Acute on chronic systolic (congestive) heart failure; E11.51 Type 2 diabetes mellitus with diabetic peripheral angiopathy without gangrene; E78.5 Hyperlipidemia, unspecified; I25.10 Atherosclerotic heart disease of native coronary artery without angina pectoris; E11.40 Type 2 diabetes mellitus with diabetic neuropathy, unspecified; E66.9 Obesity, unspecified; I25.5 Ischemic cardiomyopathy; D64.9 Anemia, unspecified; M10.9 Gout, unspecified; I08.2 Rheumatic disorders of both aortic and tricuspid valves; Z88.0 Allergy status to penicillin; Z79.82 Long term (current) use of aspirin; Z95.1 Presence of aortocoronary bypass graft; Z95.810 Presence of automatic (implantable) cardiac defibrillator; Z90.49 Acquired absence of other specified parts of digestive tract; Z87.891 Personal history of nicotine dependence; Z79.899 Other long term (current) drug therapy; Z89.411 Acquired absence of right great toe; Z68.27 Body mass index [BMI] 27.0-27.9, adult; Z79.4 Long term (current) use of insulin
CPT/HCPCS: 36415; 36416; 71045; 71275; 80048; 80053; 82550; 82553; 83735; 83880; 84484; 85014; 85018; 85025; 85049; 85379; 93005; 93798; 94760; 96372; 96374; J1650; J1815; J1940; J3475; Q0162; Q0163; Q9966

== ENCOUNTER 2019-02-08 08:01 | Outpatient (CLI) | payer MEDICARE, MEDICAID ==
--- NOTE | 2019-02-08 09:31 | CT ---
CT ANGIOGRAM OF THE ABDOMEN, PELVIS, AND BILATERAL LOWER EXTREMITIES - RUNOFF PROTOCOL: DATE: 02/08/2019. COMPARISON: 09/21/2018. HISTORY: Atherosclerotic disease, "poor circulation", weakness. TECHNIQUE: Axial CT imaging at 2.5 mm intervals from the lung bases through the feet with IV contrast using a CT angiogram protocol. Coronal and sagittal 3-D reformatted imaging obtained. FINDINGS: The heart appears enlarged, incompletely imaged midline sternotomy wires are present, and there is re flux of contrast media into the hepatic veins and the IVC, evidence of suboptimal cardiac output. The imaged lung bases demonstrate no acute findings. No free intraperitoneal air or fluid. Gallstone noted within gallbladder lumen on image 60. No discrete focal liver lesion evident. The spl een, pancreas, and adrenal glands appear grossly unremarkable. The right kidney appears grossly unremarkable. There is a probable cyst in the midpole of the left kidney measuring 8 mm. There is a focal area of hypoenhancement involving the cortex of the lower pole left kidney, not opti chad seen on the prior examination, suggesting an area of interval lower pole left renal cortical infarction. Nonspecific small volume free fluid noted in the pelvis. Limited assessment of the bowel demonstrates significant stool throughout the colon with no evidence for bowel obstruction. Small fat-containing umbilical hernia noted. No lymphadenopathy is seen within the abdomen or pelvis. There is prominent atherosclerotic calcification of the abdominal aorta and its branches. There is severe stenosis at the origin of the celiac axis. There is severe stenosis at the origin of the superior mesenteric artery. The inferior mesenteric artery is not discretely visualized and likely occluded. Moderate/severe stenosis is seen involving the origin of bilateral renal arteries. There is an access ory renal artery on the left supplying the lower pole which demonstrates severe stenosis at its origin as well. No evidence for aneurysm or dissection of the abdominal aorta. The common iliac artery on the left is occluded at its origin. There is contrast media within distal branches of left internal iliac artery on the basis of distal reconstitution. There is also distal reconstitution of a hypoplastic external iliac artery on the left, stable. The common iliac artery on the right is patent and heavily diseased with severe stenosis of right c ommon iliac artery proximally. Right internal iliac artery is occluded proximally. Right external iliac artery is severely diseased with multifocal calcification causing multifocal severe stenosis. Left lower extremity: There is atherosclerotic calcification of the left common femoral artery. Left common femoral artery is patent. Left profundofemoral artery is patent. Left superficial femoral artery is patent. There is multifocal mild atherosclerotic calcification of the left superficial femo ral artery with no hemodynamically significant stenosis seen. Left popliteal artery is patent. Left anterior tibial artery is patent to the foot. Left posterior tibial artery is heavily diseased with multifocal calcification but probably extends t o the level of the ankle. The peroneal artery on the left is to the level of the ankle. Right lower extremity: The right common femoral artery is heavily diseased with prominent calcificati on and moderate stenosis. There is an arterial bypass graft which extends from the region of the right common femoral artery to the region of the popliteal artery. This bypass graft is new when comp ared to the prior examination and is occluded. Profunda femoral artery on the right is patent. The [place] superficial femoral artery appears severel y diseased with proximal occlusion and minimal distal reconstitution via profunda branches. Minimal blood flow is noted within the mid and distal right superficial femoral artery. There is minimal bloo d flow within the superficial femoral artery distally just above the level of the right knee. The popliteal artery is hypoplastic but patent. The anterior tibial artery on the right is heavily diseased but appears patent to the level of the fo ot. Right peroneal artery appears patent to the ankle. Left posterior tibial artery appears occluded proximally. There is a small fluid collection adjacent to the distal aspect of the new femoropopliteal bypass gra ft on the right measuring 4.7 x 2.7 cm suggesting a postoperative small hematoma. Osseous structures demonstrate no acute findings. IMPRESSION: 1. There has been placement of a right femoropopliteal bypass graft since the prior examination. Thi s bypass graft is occluded. 2. Enlarged heart with reflux of contrast media into the hepatic veins and inferior vena cava. 3. Severe atherosclerotic disease involving the abdominal aorta and its branches as detailed above. 4. New area of cortical infarction involving the lower pole left kidney. 5. Cholelithiasis. 6. Severe arterial disease involving the pelvis as detailed above. 7. Prominent atherosclerotic disease involving bilateral lower extremities as detailed above. CODE T Transcribed Date/Time: 02/08/2019 10:35 AM
== END 2019-02-08 08:02 | disposition home or self-care (01) ==
LOC: CT 08:01
PROVIDERS: ATTEND Thoracic Surgery (Cardiothoracic Vascular Surgery)
DX: I25.111 Atherosclerotic heart disease of native coronary artery with angina pectoris with documented spasm (principal); I70.0 Atherosclerosis of aorta; I51.7 Cardiomegaly; N28.89 Other specified disorders of kidney and ureter; K80.20 Calculus of gallbladder without cholecystitis without obstruction; I70.203 Unspecified atherosclerosis of native arteries of extremities, bilateral legs
CPT/HCPCS: 75635

== ENCOUNTER 2019-02-15 14:00 | Inpatient (IN) | payer MEDICARE, MEDICAID ==
[2019-02-22 14:09] LABS: Anion Gap 15 mmol/L (10-20); BUN (Urea Nitrogen) 23 mg/dL (9.8-20.1); Calc. Creatinine Clearance 0 mL/min (70-130); Calcium 9.6 mg/dL (7.8-10.44); Carbon Dioxide 26 mmol/L (23-31); Chloride 100 mmol/L (98-107); Estimated GFR-MDRD 58; Glucose 197 mg/dL (83-110); Potassium 3.8 mmol/L (3.5-5.1); Sodium 137 mmol/L (136-145)
[2019-02-22 14:24] LABS: Hemoglobin 12.1 g/dL (12.0-16.0); Mean Corpuscular HGB CONC 31.5 g/dL (32.0-36.0); Mean Corpuscular Hemoglobin 30.3 pg (27.0-31.0); Mean Corpuscular Volume 96.3 fL (78.0-98.0); RBC Distribution Width 15.8 % (11.5-14.5); Red Blood Cell (RBC) Count 3.98 mill/uL (4.20-5.40); White Blood Cell (WBC) Count 4.5 thou/uL (4.8-10.8)
[2019-02-23] MEDS ORDERED: Clindamycin/D5W 900 mg/50 ml Premix Bag ONE (08:55)
[2019-02-23] MEDS ORDERED: Levofloxacin 500 mg/D5W 100 ml Premix Bag ONE (08:55)
[2019-02-23] MEDS ORDERED: Fentanyl 100 MCG/2 ML VIAL ONE ×5 (09:29→17:37)
[2019-02-23] MEDS ORDERED: Phenylephrine HCL 10 MG/ML VIAL ONE ×2 (09:30→14:40)
[2019-02-23] MEDS ORDERED: Protamine Sulfate 50 MG/5 ML VIAL ONE (09:35)
[2019-02-23] MEDS ORDERED: Heparin 5,000 UNITS/ML VIAL ONE (09:35)
[2019-02-23] MEDS ORDERED: DOPamine 400 MG/D5W 250 ML 0 ML ONE (10:01)
[2019-02-23] MEDS ORDERED: Promethazine HCl 25 MG/ML VIAL SLOW IVP PRN (16:22)
[2019-02-23] MEDS ORDERED: Ondansetron HCl/PF 4 MG/2 ML Vial IVP PRN (16:22)
[2019-02-23] MEDS ORDERED: Promethazine HCl 25 MG/ML VIAL IM PRN (16:22)
[2019-02-23] MEDS ORDERED: Nitroglycerin 50 MG/250 ML BOT 250 ML IVPB PRN (16:50)
[2019-02-23] MEDS ORDERED: Norepinephrine 8 MG/0.9% NS 250 ML IVPB PRN (16:50)
[2019-02-23] MEDS ORDERED: Fentanyl 100 MCG/2 ML VIAL SLOW IVP PRN ×2 (16:50)
[2019-02-23] MEDS ORDERED: Acetaminophen 325 MG TAB PO PRN (16:50)
[2019-02-23] MEDS ORDERED: Ondansetron PF 4 MG/2 ML Vial IVP PRN (16:50)
[2019-02-23] MEDS ORDERED: Norepinephrine 8 MG in Dextrose 5% in Water 242 ML IVPB PRN (17:04)
[2019-02-23] MEDS: Lactated Ringer's 500 ML IV SCH (20:20)
[2019-02-23 20:21] VITALS: BMI 28.3
[2019-02-23] MEDS: HYDROcodone/Acetaminophen 5/325 mg Tablet PO PRN (20:32)
[2019-02-23] MEDS: Clindamycin/D5W 600 MG in Premix Bag 1 BAG IVPB SCH (22:06)
[2019-02-24] MEDS: Lactated Ringer's 500 ML IV SCH ×2 (02:29→12:50)
[2019-02-24] MEDS: Clindamycin/D5W 600 MG in Premix Bag 1 BAG IVPB SCH ×3 (05:32→22:56)
[2019-02-24] MEDS: HYDROcodone/Acetaminophen 5/325 mg Tablet PO PRN ×3 (05:32→20:52)
[2019-02-24 07:02] LABS: Anion Gap 11 mmol/L (10-20); BUN (Urea Nitrogen) 24 mg/dL (9.8-20.1); Calc. Creatinine Clearance 65 mL/min (70-130); Calcium 8.5 mg/dL (7.8-10.44); Carbon Dioxide 25 mmol/L (23-31); Chloride 100 mmol/L (98-107); Estimated GFR-MDRD 73; Glucose 191 mg/dL (83-110); Potassium 4.2 mmol/L (3.5-5.1); Sodium 132 mmol/L (136-145)
[2019-02-24] MEDS: Insulin Regular 300 UNITS/3 ML VIAL SC PRN ×3 (07:02→20:53)
[2019-02-24 08:40] LABS: #Lymphocytes 1.2 thou/uL (1.20-3.40); #Monocytes 0.8 thou/uL (0.11-0.59); #Neutrophils 5.9 thou/uL (1.40-6.50); %Basophils 0.5 % (0.0-1.0); %Eosinophils 0.1 % (0.0-10.0); %Lymphocytes 15.5 % (21.0-51.0); %Neutrophils 73.9 % (42.0-75.0); Hemoglobin 7.7 g/dL (12.0-16.0); Mean Corpuscular HGB CONC 33.2 g/dL (32.0-36.0); Mean Corpuscular Hemoglobin 31.4 pg (27.0-31.0); Mean Corpuscular Volume 94.4 fL (78.0-98.0); Mean Platelet Volume 9.4 fL (7.4-10.4); Platelet Count 99 thou/uL (130-400); RBC Distribution Width 15.4 % (11.5-14.5); Red Blood Cell (RBC) Count 2.45 mill/uL (4.20-5.40); White Blood Cell (WBC) Count 7.9 thou/uL (4.8-10.8)
[2019-02-24] MEDS: Aspirin Chewable 81 MG TAB PO SCH (09:45)
[2019-02-24] MEDS ORDERED: Furosemide 40 MG/4 ML VIAL SLOW IVP PRN (11:03)
[2019-02-25] MEDS: HYDROcodone/Acetaminophen 5/325 mg Tablet PO PRN ×4 (01:10→17:27)
[2019-02-25 05:11] LABS: #Lymphocytes 1.2 thou/uL (1.20-3.40); #Monocytes 0.7 thou/uL (0.11-0.59); #Neutrophils 4.1 thou/uL (1.40-6.50); %Basophils 0.2 % (0.0-1.0); %Eosinophils 0.7 % (0.0-10.0); %Lymphocytes 20.2 % (21.0-51.0); %Monocytes 11.1 % (0.0-10.0); %Neutrophils 67.9 % (42.0-75.0); Hemoglobin 8.9 g/dL (12.0-16.0); Mean Corpuscular HGB CONC 33.4 g/dL (32.0-36.0); Mean Corpuscular Hemoglobin 31.2 pg (27.0-31.0); Mean Corpuscular Volume 93.3 fL (78.0-98.0); Mean Platelet Volume 9.1 fL (7.4-10.4); Platelet Count 101 thou/uL (130-400); RBC Distribution Width 15.5 % (11.5-14.5); Red Blood Cell (RBC) Count 2.86 mill/uL (4.20-5.40)
[2019-02-25 05:26] LABS: Anion Gap 10 mmol/L (10-20); BUN (Urea Nitrogen) 27 mg/dL (9.8-20.1); Calc. Creatinine Clearance 57 mL/min (70-130); Calcium 8.6 mg/dL (7.8-10.44); Carbon Dioxide 26 mmol/L (23-31); Chloride 99 mmol/L (98-107); Estimated GFR-MDRD 60; Glucose 153 mg/dL (83-110); Sodium 131 mmol/L (136-145)
[2019-02-25] MEDS: Insulin Regular 300 UNITS/3 ML VIAL SC PRN ×2 (06:09→15:57)
[2019-02-25] MEDS: Aspirin Chewable 81 MG TAB PO SCH (08:40)
--- NOTE | 2019-02-25 08:57 | RAD ---
ONE VIEW CHEST: HISTORY: Status post surgery. Congestive heart failure. COMPARISON: 07/08/2018, 12/09/2018. FINDINGS: There are sternotomy wires. Left-sided single-lead transvenous defibrillator terminates in the regio n of the right ventricle. Lead position is unchanged. There is cardiomegaly. Atherosclerosis of th e aortic knob. Pulmonary vessels and hilum are normal. Costophrenic angles are clear. No masses or consolidation. No pneumothorax or osseous abnormalities. IMPRESSION: 1. Cardiomegaly. No evidence of congestive heart failure. 2. Atherosclerosis. POS: OFF
[2019-02-25] MEDS ORDERED: Metolazone 5 MG TAB PO SCH (11:00)
[2019-02-25] MEDS ORDERED: Furosemide 40 MG TAB PO SCH (11:00)
[2019-02-25] MEDS: Furosemide 40 MG TAB PO SCH (13:49)
[2019-02-25] MEDS: Iron Polysaccharides Complex 150 MG CAP PO SCH (17:26)
[2019-02-26] MEDS: HYDROcodone/Acetaminophen 5/325 mg Tablet PO PRN ×3 (03:40→22:37)
[2019-02-26 05:50] LABS: Anion Gap 13 mmol/L (10-20); BUN (Urea Nitrogen) 25 mg/dL (9.8-20.1); Calc. Creatinine Clearance 57 mL/min (70-130); Carbon Dioxide 26 mmol/L (23-31); Chloride 96 mmol/L (98-107); Estimated GFR-MDRD 60; Glucose 151 mg/dL (83-110); Potassium 3.8 mmol/L (3.5-5.1); Sodium 131 mmol/L (136-145)
[2019-02-26 06:32] LABS: #Lymphocytes 0.9 thou/uL (1.20-3.40); #Monocytes 0.7 thou/uL (0.11-0.59); #Neutrophils 3.6 thou/uL (1.40-6.50); %Basophils 0.8 % (0.0-1.0); %Eosinophils 0.8 % (0.0-10.0); %Lymphocytes 16.1 % (21.0-51.0); %Monocytes 13.7 % (0.0-10.0); %Neutrophils 68.7 % (42.0-75.0); Anisocytosis SLIGHT = 6-15 cells (100X) (0-5/hpf); Elliptocytes SLIGHT = 2-5 cells (100X) (0-1/hpf); Hemoglobin 9.4 g/dL (12.0-16.0); MDiff Complete? YES; Mean Corpuscular Hemoglobin 30.9 pg (27.0-31.0); Mean Corpuscular Volume 93.7 fL (78.0-98.0); Mean Platelet Volume 10.8 fL (7.4-10.4); Platelet Clumps MARKED; Platelet Morphology Comment PLT clumps seen-ADEQ; RBC Distribution Width 15.5 % (11.5-14.5); Red Blood Cell (RBC) Count 3.03 mill/uL (4.20-5.40); White Blood Cell (WBC) Count 5.3 thou/uL (4.8-10.8)
[2019-02-26] MEDS ORDERED: Metolazone 5 MG TAB PO SCH (08:30)
[2019-02-26] MEDS: Aspirin Chewable 81 MG TAB PO SCH (08:44)
[2019-02-26] MEDS: Furosemide 40 MG TAB PO SCH ×2 (08:44→14:52)
[2019-02-26] MEDS: Clopidogrel Bisulfate 75 MG TAB PO SCH (08:44)
[2019-02-26] MEDS: Iron Polysaccharides Complex 150 MG CAP PO SCH ×2 (08:44→17:06)
[2019-02-26] MEDS: Carvedilol 3.125 MG TAB PO SCH ×2 (08:44→17:06)
--- NOTE | 2019-02-26 09:45 | RAD ---
FRONTAL VIEW CHEST: COMPARISON: Previous day. INDICATION: Heart failure. FINDINGS: There remains enlargement of the cardiac silhouette. Left side AICD remains in place. No significan t interval change. IMPRESSION: Stable chest. POS: TPC
--- NOTE | 2019-02-26 10:47 | OP ---
DATE OF PROCEDURE: 02/23/2019 PREOPERATIVE DIAGNOSIS: Rest pain, right foot, nonhealing ulcer. POSTOPERATIVE DIAGNOSIS: Rest pain, right foot, nonhealing ulcer. PROCEDURE PERFORMED: Redo right femoral to infrageniculate popliteal bypass with reverse saphenous vein harvested from the left leg, right external iliac artery stent and balloon angioplasty of a previously placed stent. ANESTHESIA: General. ESTIMATED BLOOD LOSS: 500. DESCRIPTION OF PROCEDURE: After adequate anesthesia had been obtained, the patient was prepped and draped. Endovascular vein harvest was performed, left greater saphenous vein. The patient had significant oozing during harvest of this vein graft. Following completion of the harvest, Peter wrap was placed on this leg. Attention was then turned to the right infrageniculate popliteal artery which was dissected out. After this had been done, tibioperoneal trunk was mobilized down to the takeoff of the posterior tibial and peroneal arteries. I had anticipated bypassing the popliteal artery and peroneal artery; however, the peroneal artery was heavily calcified. Following this, attention was turned to the right groin, which was dissected out with dense scarring as anticipated. After isolating the common femoral artery at the inguinal ligament where a soft spot was isolated for clamping and the posterior branch of the profunda and the other profunda branches, the [place] graft was divided. The patient then had a tunneler placed from the infrageniculate popliteal artery to the groin incision and was then heparinized monitoring ACT levels. The needle was inserted through the orifice of the [place]-A[place] graft into the common femoral artery where a wire was advanced. Imaging was obtained demonstrating some recurrent stenosis in the proximal portion of the previously placed external iliac artery stent and then the previously noted stenosis at the distal aspect of the stent in the external iliac artery. A 7 x 27 balloon expandable stent was then deployed incorporating the distal aspect of the previously placed stent in the external iliac artery. Following this, the balloon was then advanced up to the proximal aspect of the previously placed stent, where balloon angioplasty was performed for 1 minute following which repeat angiogram demonstrated a good result. Following this, clamps were applied to the common femoral artery after removal of the sheath and wire, profunda femoral branches. The [place]-Aaron graft was then excised from its takeoff from the common femoral artery and the saphenous vein was reversed and anastomosed here. It was then brought through its tunnel. There was significant bleeding coming from the tunnel and this was packed off with a gauze sponge and then sucker in the popliteal space. The popliteal artery was opened and was of marginal quality, saphenous vein was then anastomosed here. Following completion of this, protamine was given to reverse the heparin and after a long period of time using FloSeal, hemostasis was obtained and the wounds were then closed in layers. Based on the quality of vessels today, reoperation would not be a consideration if this graft fails in the future. Job ID: [id number]
[2019-02-26] MEDS ORDERED: Insulin Regular 300 UNITS/3 ML VIAL ONE (11:50)
[2019-02-26] MEDS: Insulin Regular 300 UNITS/3 ML VIAL SC PRN (13:09)
--- NOTE | 2019-02-26 14:34 | PQF ---
CLINICAL DOCUMENTATION IMPROVEMENT CLARIFICATION FORM: ICD-10 Updated PLEASE DO AN ADDENDUM TO THE PROGRESS NOTE WITH ANY DOCUMENTATION UPDATES OR ADDITIONS AND CARRY THROUGH TO DC SUMMARY. THANK YOU. DATE: 02/26/2019 ATTN: Dr. Bailey Please exercise your independent, professional judgment in responding to the clarification form. Clinical indicators are provided on the bottom of this form for your review Please check appropriate box(s): [ ] Acute blood loss anemia [ y ] Post-op anemia related to acute blood loss [ ] Other diagnosis [ ] Unable to determine For continuity of documentation, please document condition throughout progress notes and discharge summary. Thank You. CLINICAL INDICATORS - SIGNS / SYMPTOMS/ LABS are present in the medical record: 02/22 02/24 02/25 02/26 LABs: Hemoglobin 12.1 7.7 8.9 9.4 RISKS: 02/23 OP Note: Redo r femoral to infrageniculate popliteal bypass. TREATMENT: Order 02/22: Transfuse 2 units Prbc's, each over 4 hrs. Lasix 40 mg IV after ea unit Prbc's Lab orders for BMP 02/22, 02/24, 02/25, 02/26 Thank you, Maggy (This form is maintained as a part of the permanent medical record) 2015 [employer]. All Rights Reserved Maggy Frederick RN, BSN [email or web address] Office: [phone] [facility]
[2019-02-27 04:28] VITALS: TEMP 97.9
[2019-02-27] MEDS: Aspirin Chewable 81 MG TAB PO SCH (08:27)
[2019-02-27] MEDS: Clopidogrel Bisulfate 75 MG TAB PO SCH (08:27)
[2019-02-27] MEDS: Iron Polysaccharides Complex 150 MG CAP PO SCH (08:27)
[2019-02-27] MEDS: Furosemide 40 MG TAB PO SCH ×2 (08:27→13:41)
[2019-02-27] MEDS: Carvedilol 3.125 MG TAB PO SCH (08:27)
[2019-02-27] MEDS ORDERED: Insulin Glargine 20 UNITS in Pre-Filled Syringe 1 EACH SC SCH (09:00)
[2019-02-27] MEDS ORDERED: Insulin Glargine 15 UNITS in Pre-Filled Syringe 1 EACH SC SCH (09:00)
[2019-02-27] MEDS: HYDROcodone/Acetaminophen 5/325 mg Tablet PO PRN ×2 (09:55→16:16)
[2019-02-27 12:10] VITALS: BP 128/60
[2019-02-27] MEDS: Insulin Regular 300 UNITS/3 ML VIAL SC PRN (12:24)
--- NOTE | 2019-02-28 01:49 | DIS ---
DATE OF ADMISSION: 02/23/2019 DATE OF DISCHARGE: 02/27/2019 This is a 74-year-old with rest pain in her right foot following a failed femoral popliteal graft. She underwent a right external iliac artery stent with a 7 x 29 balloon expandable stent as well as a right femoral to infrageniculate popliteal artery. Initial plans were for peroneal artery bypass, but this vessel was too calcified to open. Postoperatively, she had significant discomfort with trying to walk or stand, although her rest pain in her foot was resolved. She will be discharged to the rehab center to resume her home medications. She did receive 2 units of packed red cells postoperatively. Discharge and followup instructions have been given. Job ID: [id number]
== END 2019-02-27 16:19 | DRG 253 ==
LOC: SURG A 02-23 08:24 → CCU 02-23 19:32 → 2NO 02-26 04:12
PROVIDERS: ADMIT Thoracic Surgery (Cardiothoracic Vascular Surgery); ATTEND Thoracic Surgery (Cardiothoracic Vascular Surgery)
PROC: 041 Lower Arteries, Bypass (ICD-10-PCS; principal; 2019-02-23)
PROC: 06BQ4ZZ Excision of Left Saphenous Vein, Percutaneous Endoscopic Approach (ICD-10-PCS; 2019-02-23)
PROC: 047H3ZZ Dilation of Right External Iliac Artery, Percutaneous Approach (ICD-10-PCS; 2019-02-23)
DX: I70.213 Atherosclerosis of native arteries of extremities with intermittent claudication, bilateral legs (principal); D62 Acute posthemorrhagic anemia; L97.919 Non-pressure chronic ulcer of unspecified part of right lower leg with unspecified severity; Z88.0 Allergy status to penicillin
CPT/HCPCS: 36415; 36416; 36430; 71045; 76000; 80048; 85025; 85027; 86850; 86900; 86901; J1265; J1642; J1644; J1815; J1940; J1956; J2370; J2720; J3010; J3490; J7070; P9016

== ENCOUNTER 2019-02-22 12:21 | Outpatient (CLI) | payer MEDICARE, MEDICAID | END 2019-02-22 12:22 | disposition home or self-care (01) | LOC: LABBT 12:21 | PROVIDERS: ATTEND Thoracic Surgery (Cardiothoracic Vascular Surgery) | DX: Z01.812 Encounter for preprocedural laboratory examination (principal); I73.9 Peripheral vascular disease, unspecified | CPT/HCPCS: 80048; 85027; 86850; 86900; 86901 ==

== ENCOUNTER 2019-05-02 12:51 | Outpatient (CLI) | payer MEDICARE, MEDICAID ==
[~2019-05-02 12:51] MED LIST changes: -ISOVUE-370 76%-LOCM 1 ML ONE; +Iopamidol-370 76% 500 ML 1 ML ONE
--- NOTE | 2019-05-02 15:29 | CT ---
CTA ABDOMEN AND PELVIS WITH BILATERAL LOWER EXTREMITY RUNOFF UTILIZING IV CONTRAST AND 3D REFORMATTED IMAGING: INDICATIONS: History of poor circulation with peripheral vascular disease. COMPARISON: Prior CTA with bilateral lower extremity runoff dated 02/08/2019. FINDINGS: There is mild bibasilar atelectasis. There is cardiomegaly with reflux of contrast within the hepatic veins, consistent with some right heart dysfunction. No focal hepatic lesion is evident. Cholelithia sis is again demonstrated. The pancreas and adrenal glands are normal appearing. The spleen is normal appearing. There is a stable left renal cyst. The right kidney is normal appearing. No free fluid or enlarged lymph nodes are evident. There is a moderate amount of retained stool within the colon. Reproductive structures are surgically absent. The appendix is not definitely demonstrated. No definite acute osseous abnormality is evident. There is scattered degenerative and osteoarthritic change. There is marked atherosclerotic irregularity involving the abdominal aorta. There is severe stenosis involving the origin of the SMA and celiac arteries. There is severe stenosis involving the proximal segment of the SMA. There is severe narrowing involving the origins of the renal arteries bilaterally . There is an accessory renal artery to the left kidney with narrowing at the origin. The KARLI origin is not visualized. There is some reconstitution of flow within the distal KARLI segments, likely throug h distal collaterals. No aneurysmal dilatation is seen involving the abdominal aorta. There is complete occlusion of the left common iliac artery from its origin. There is mild reconstitu tion of flow at the level of the left external iliac artery, likely through collaterals. There is brooks e reconstitution of flow at the level of the distal left internal iliac artery. There are severe multifocal areas of high-grade stenosis involving the right common iliac artery with an Endograft stent in the region of the right external iliac artery. There is severe narrowing at th e level of the stent distally, which is stable. There is moderate atherosclerotic irregularity involv ing the right common femoral artery. The femoral bifurcation demonstrates severe narrowing of the pro nevin femoral artery. The [place] superficial femoral artery is completely occluded. There is a bypass graft involving the proximal right thigh that is completely occluded. There is a new bypass graft th at has been placed from the level of the right common femoral artery, extending along the anteromedia l aspect of the leg, down to the level of the distal tibioperoneal trunk. There is multifocal stenosi s involving the [place] right popliteal artery. There is multifocal stenosis involving the anterior ti bial artery. The posterior tibial artery is occluded. There is at least two vessel runoff to the leve l of the ankle in the right lower extremity. The left common femoral artery is patent with mild to moderate atherosclerotic irregularity. The left superficial femoral artery demonstrates atherosclerotic irregularity with multifocal areas of mild s tenosis. The left popliteal artery demonstrates multifocal areas of mild stenosis. The tibial periton eal trunk and the anterior tibial artery appear patent. There are multifocal areas of stenosis involv ing the left posterior tibial artery. There is at least two vessel runoff to the level of the ankle. IMPRESSION: 1. Interval placement of a new right common femoral to right tibial peroneal trunk bypass graft that appears patent. There are multifocal areas of stenosis involving the right anterior tibial artery wit h flow present within the right peroneal artery. There is two vessel runoff to the level of the right ankle. The right posterior tibial artery remains completely occluded. Stable complete occlusion of t he previous right femoral/popliteal bypass graft. Multifocal areas of severe stenosis involving the r ight superficial femoral artery and the right popliteal artery 2. Stable high-grade stenosis involving the proximal right external iliac artery, at the level of the external iliac stent. 3. Stable complete occlusion of the left common iliac artery. 4. Stable severe stenosis in the origins of the superior mesenteric artery, celiac and renal arteries with complete occlusion of the origin of the inferior mesenteric artery. 5.Cholelithiasis and a prominent amount of retained stool within the colon. POS: [facility]
== END 2019-05-02 12:52 | disposition home or self-care (01) ==
LOC: BICCT 12:51
PROVIDERS: ATTEND Thoracic Surgery (Cardiothoracic Vascular Surgery)
DX: I70.213 Atherosclerosis of native arteries of extremities with intermittent claudication, bilateral legs (principal); I70.8 Atherosclerosis of other arteries; K55.069 Acute infarction of intestine, part and extent unspecified; K80.20 Calculus of gallbladder without cholecystitis without obstruction
CPT/HCPCS: 36415; 75635; 80048; Q9967

== ENCOUNTER 2019-05-08 07:30 | Day surgery (SDC) | payer MEDICARE, MEDICAID ==
[2019-05-07 17:12] VITALS: BMI 28.6
[2019-05-08 08:19] LABS: Hemoglobin 11.3 g/dL (12.0-16.0); Mean Corpuscular HGB CONC 32.3 g/dL (32.0-36.0); Mean Corpuscular Hemoglobin 31.1 pg (27.0-31.0); Mean Corpuscular Volume 96.2 fL (78.0-98.0); RBC Distribution Width 13.6 % (11.5-14.5); Red Blood Cell (RBC) Count 3.63 mill/uL (4.20-5.40)
[2019-05-08 08:23] LABS: Anion Gap 10 mmol/L (10-20); BUN (Urea Nitrogen) 22 mg/dL (9.8-20.1); Calc. Creatinine Clearance 53 mL/min (70-130); Calcium 9.4 mg/dL (7.8-10.44); Carbon Dioxide 29 mmol/L (23-31); Chloride 101 mmol/L (98-107); Estimated GFR-MDRD 58; Glucose 156 mg/dL (83-110); Potassium 4.2 mmol/L (3.5-5.1); Sodium 136 mmol/L (136-145)
[2019-05-08 08:46] LABS: Eosinophils 1 % (0-10); Lymphocytes 21 % (21-51); MDiff Complete? YES; Monocytes 7 % (0-10); Neutrophil 70 % (42-75); Ovalocytes SLIGHT = 2-5 cells (100X) (0-1/hpf); Platelet Clumps MODERATE; Platelet Morphology Comment PLT clumps seen-ADEQ; Poikilocytosis SLIGHT = 6-15 cells (100X) (0-5/hpf); Polychromasia SLIGHT = 2-3 cells (100X) (0-2/hpf); Schistocytes SLIGHT = 2-5 cells (100X) (0-1/hpf)
[2019-05-08] MEDS ORDERED: Lidocaine 1% (PF) 30 ML VIAL ONE (08:49)
[2019-05-08] MEDS ORDERED: Heparin (Artline) 1,000 ML ONE (08:49)
[2019-05-08] MEDS ORDERED: Fentanyl 100 MCG/2 ML VIAL ONE ×2 (09:32→11:27)
--- NOTE | 2019-05-08 11:45 | OP ---
DATE OF PROCEDURE: 05/08/2019 PROCEDURE PERFORMED: Aortogram, right iliac artery runoff, and right lower extremity runoff. ANESTHESIA: 1% lidocaine with IV sedation. CONTRAST: 24 mL. FLUORO: 1.6 minutes. DESCRIPTION OF PROCEDURE: After prepping and draping the right groin, ultrasound was used to guide puncture of the femoral artery proximal to the femoral-popliteal takeoff, but caudal to the pelvic brim. A needle was then first passed into the artery and then a wire was advanced up to the aorta. A 4-[place] dilator and then a 4-[place] dilator and sheath were then advanced and angiography obtained of the aortoiliac segments and runoff of the right leg. FINDINGS: The patient had calcified, but widely patent distal aorta. Left common iliac was occluded. Right common iliac was widely patent, although somewhat tortuous. External iliac was widely patent and hypogastric artery filled from femoral collaterals. The common femoral artery was patent with profunda vessels filling as well as a right femoral popliteal graft that was widely patent to the level of the infrageniculate popliteal artery, where very faint runoff was seen distally with the peroneal artery being the only vessel that was identified at the level of the ankle. It had a long 4-to 5-cm segment that was nearly occluded and heavily calcified. Sheath was then removed and pressure held. Job ID: [id number]
[2019-05-08] MEDS ORDERED: Iopamidol 370 76% 50 ML VIAL FS ONE (12:40)
== END 2019-05-08 16:10 | disposition home or self-care (01) ==
LOC: CCL 07:30
PROVIDERS: ATTEND Thoracic Surgery (Cardiothoracic Vascular Surgery)
PROC: B41D1ZZ Fluoroscopy of Aorta and Bilateral Lower Extremity Arteries using Low Osmolar Contrast (ICD-10-PCS; principal; 2019-05-08)
DX: E11.51 Type 2 diabetes mellitus with diabetic peripheral angiopathy without gangrene (principal); I70.213 Atherosclerosis of native arteries of extremities with intermittent claudication, bilateral legs; I25.10 Atherosclerotic heart disease of native coronary artery without angina pectoris; I65.23 Occlusion and stenosis of bilateral carotid arteries; I10 Essential (primary) hypertension; E78.5 Hyperlipidemia, unspecified; Z79.02 Long term (current) use of antithrombotics/antiplatelets; Z79.4 Long term (current) use of insulin; Z79.82 Long term (current) use of aspirin; Z79.899 Other long term (current) drug therapy; Z88.0 Allergy status to penicillin; Z88.5 Allergy status to narcotic agent; Z87.891 Personal history of nicotine dependence; Z95.1 Presence of aortocoronary bypass graft; Z95.820 Peripheral vascular angioplasty status with implants and grafts
CPT/HCPCS: 36200; 36415; 75630; 75710; 76942; 80048; 85025; C1769; C1887; J1644; J2001; J3010; Q9967

== ENCOUNTER 2019-07-19 13:30 | Emergency (ER) | payer MEDICARE, MEDICAID ==
--- NOTE | 2019-07-19 14:41 | RAD ---
Exam:3 views right foot HISTORY: First digit amputation. Persistent pain. COMPARISON: None FINDINGS: Amputation of the first digit at the midportion of the distal phalanx. Expected postoperati ve changes. There are vascular calcifications. Joint spaces are preserved. Lisfranc alignment is maintained. There is no radiographic evidence of osteomyelitis. IMPRESSION: Amputation. No evidence of osteomyelitis.
[2019-07-19 14:58] LABS: Hemoglobin 11.5 g/dL (12.0-16.0); Mean Corpuscular HGB CONC 31.5 g/dL (32.0-36.0); Mean Corpuscular Hemoglobin 31.9 pg (27.0-31.0); RBC Distribution Width 13.6 % (11.5-14.5); Red Blood Cell (RBC) Count 3.62 mill/uL (4.20-5.40); White Blood Cell (WBC) Count 4.2 thou/uL (4.8-10.8)
[2019-07-19 15:02] LABS: ALT (SGPT) 11 U/L (8-55); AST (SGOT) 16 U/L (5-34); Albumin 3.8 g/dL (3.4-4.8); Alkaline Phosphatase 115 U/L (40-110); Anion Gap 12 mmol/L (10-20); BUN (Urea Nitrogen) 21 mg/dL (9.8-20.1); Bilirubin, Total 1.3 mg/dL (0.2-1.2); Calc. Creatinine Clearance 0 mL/min (70-130); Calcium 9.5 mg/dL (7.8-10.44); Carbon Dioxide 27 mmol/L (23-31); Chloride 102 mmol/L (98-107); Estimated GFR-MDRD 55; Globulin 3.8 g/dL (2.4-3.5); Glucose 87 mg/dL (83-110); Potassium 4.3 mmol/L (3.5-5.1); Protein, Total 7.6 g/dL (6.0-8.3); Sodium 137 mmol/L (136-145)
[2019-07-19 15:23] LABS: Burr Cells SLIGHT = 2-5 cells (100X) (0-1/hpf); Eosinophils 3 % (0-10); Hypochromia SLIGHT = 6-15 cells (100X) (0-5/hpf); Lymphocytes 20 % (21-51); MDiff Complete? YES; Macrocytosis SLIGHT = 6-15 cells (100X) (0-5/hpf); Monocytes 8 % (0-10); Neutrophil 68 % (42-75); Ovalocytes SLIGHT = 2-5 cells (100X) (0-1/hpf); Platelet Clumps MODERATE; Platelet Morphology Comment PLT clumps seen-ADEQ; Poikilocytosis SLIGHT = 6-15 cells (100X) (0-5/hpf); Polychromasia SLIGHT = 2-3 cells (100X) (0-2/hpf); Schistocytes SLIGHT = 2-5 cells (100X) (0-1/hpf); Tear Drops SLIGHT = 2-5 cells (100X) (0-1/hpf)
== END 2019-07-19 16:00 | disposition home or self-care (01) ==
LOC: ERS 13:30
DX: M79.674 Pain in right toe(s) (principal); I25.10 Atherosclerotic heart disease of native coronary artery without angina pectoris; I25.2 Old myocardial infarction; E11.9 Type 2 diabetes mellitus without complications; E78.5 Hyperlipidemia, unspecified; I11.0 Hypertensive heart disease with heart failure; I50.9 Heart failure, unspecified; Z87.891 Personal history of nicotine dependence; Z79.4 Long term (current) use of insulin
CPT/HCPCS: 36415; 80053; 85025

== ENCOUNTER 2019-08-14 16:32 | Inpatient (IN) | payer MEDICARE, MEDICAID ==
[2019-08-14 17:16] LABS: Hemoglobin 10.9 g/dL (12.0-16.0); Mean Corpuscular HGB CONC 32.5 g/dL (32.0-36.0); Mean Corpuscular Hemoglobin 32.7 pg (27.0-31.0); RBC Distribution Width 12.6 % (11.5-14.5); Red Blood Cell (RBC) Count 3.32 mill/uL (4.20-5.40); White Blood Cell (WBC) Count 4.5 thou/uL (4.8-10.8)
[2019-08-14 17:17] LABS: #Lymphocytes 0.6 thou/uL (1.20-3.40); #Monocytes 0.3 thou/uL (0.11-0.59); #Neutrophils 3.6 thou/uL (1.40-6.50); %Basophils 0.7 % (0.0-1.0); %Eosinophils 0.3 % (0.0-10.0); %Monocytes 6.2 % (0.0-10.0); %Neutrophils 79.7 % (42.0-75.0)
--- NOTE | 2019-08-14 17:18 | RAD ---
EXAM: CHEST ONE VIEW HISTORY: Chest pain/tightness which started this morning. COMPARISON: 02/26/2019 FINDINGS: Single lead left subclavian AICD device remains in place. Postsurgical changes related to CABG are ag ain noted. Cardiac silhouette remains enlarged. Pulmonary vasculature is at the upper limits of normal. Minimal bibasilar linear densities are seen probably due to mild atelectasis. Vascular calcif ications are again seen in the thoracic and visualized abdominal aorta. No other interval change. IMPRESSION: 1. Cardiomegaly with pulmonary vasculature at the upper limits of normal. 2. Minimal bibasilar atelectasis.
[2019-08-14 17:35] LABS: ALT (SGPT) 13 U/L (8-55); AST (SGOT) 18 U/L (5-34); Albumin 3.7 g/dL (3.4-4.8); Alkaline Phosphatase 115 U/L (40-110); Anion Gap 14 mmol/L (10-20); BUN (Urea Nitrogen) 28 mg/dL (9.8-20.1); Bilirubin, Total 1.6 mg/dL (0.2-1.2); Calc. Creatinine Clearance 0 mL/min (70-130); Calcium 9.4 mg/dL (7.8-10.44); Carbon Dioxide 26 mmol/L (23-31); Chloride 100 mmol/L (98-107); Estimated GFR-MDRD 49; Globulin 3.7 g/dL (2.4-3.5); Glucose 197 mg/dL (83-110); Potassium 4.1 mmol/L (3.5-5.1); Protein, Total 7.4 g/dL (6.0-8.3); Sodium 136 mmol/L (136-145)
[2019-08-14 17:38] LABS: Helmet Cells SLIGHT = 2-5 cells (100X) (0-1/hpf); Hypochromia SLIGHT = 6-15 cells (100X) (0-5/hpf); MDiff Complete? YES; Macrocytosis SLIGHT = 6-15 cells (100X) (0-5/hpf); Mean Platelet Volume 11.6 fL (7.4-10.4); Platelet Clumps MODERATE; Platelet Count 75 thou/uL (130-400); Platelet Morphology Comment PLT clumps seen-ADEQ; Schistocytes SLIGHT = 2-5 cells (100X) (0-1/hpf)
[2019-08-14 17:53] LABS: CKMB 0.8 ng/mL (0-6.6)
[2019-08-14] MEDS ORDERED: Aspirin Chewable 81 MG TAB ONE (18:35)
[2019-08-14] MEDS ORDERED: Nitroglycerin 0.4 MG TAB 1 EACH ONE (18:35)
[2019-08-14] MEDS ORDERED: Furosemide 100 MG/10 ML VIAL ONE (20:23)
[2019-08-14 20:57] LABS: Troponin I 0.113 ng/mL (< 0.028)
[2019-08-14] MEDS ORDERED: HumaLOG 300 UNITS/3 ML VIAL SC PRN (21:44)
[2019-08-14] MEDS ORDERED: Dextrose 5% in Water 1,000 ML IV PRN (21:44)
[2019-08-14] MEDS ORDERED: Dextrose 50% Abboject 50 ML SYRINGE SLOW IVP PRN (21:44)
[2019-08-14] MEDS ORDERED: Ondansetron PF 4 MG/2 ML Vial IVP PRN (21:44)
[2019-08-14] MEDS ORDERED: Acetaminophen 325 MG TAB PO PRN (21:44)
[2019-08-14] MEDS ORDERED: Ondansetron ODT 4 MG TAB PO PRN (21:44)
[2019-08-14] MEDS ORDERED: Senokot S 8.6-50 MG TAB PO PRN (21:44)
[2019-08-14] MEDS ORDERED: Nitroglycerin 0.4 MG TAB (25 Tab Bottle) SL PRN (21:44)
[2019-08-14] MEDS ORDERED: Acetaminophen 650 MG Suppository PR PRN (21:44)
--- NOTE | 2019-08-14 23:06 | HP ---
PRIMARY CARE PHYSICIAN: Xavier Leonard MD. CHIEF COMPLAINT: Chest pain and shortness of breath. HISTORY OF PRESENT ILLNESS: This is a 74-year-old female, with a known history of severe systolic and diastolic congestive heart failure and cfgxfdpz-hv-wpgxig aortic stenosis who has had occasional exacerbations in the past, though not very frequently, last time she was admitted for an exacerbation was in November 2018. She reports that she had been around her baseline until 2-3 days ago. She did go with her family to look for some cars to buy and they were out and about and ate at a lot of fast food places which has more sodium than she usually eats. She has noticed about a 10-pound weight gain and started to have significant shortness of breath. She had orthopnea, significant dyspnea on exertion when she ambulates around her house with her walker or cane, and then the patient developed early this morning around 6 o'clock substernal chest pain. Pain was mostly pressure sensation. She has had similar problems before when she has exacerbation of her CHF, was associated with nausea as well as no vomiting. The patient eventually presented to the emergency room. In the ER, she was given IV Lasix along with aspirin and sublingual nitroglycerin and she has had resolution of all of her chest pressure. She still is very dyspneic on exertion. She has had increased lower extremity edema and that is a little bit better after the IV Lasix in the emergency room as well. The patient was found to have an indeterminate troponin. Due to her risk factors and the chest pain, she was being admitted to the hospital. REVIEW OF SYSTEMS: CONSTITUTIONAL: No fevers. She did have a little bit of a chill earlier this morning. EYES: No double vision or blurred vision. ENT: She has had some congestion. No sore throat. CARDIOVASCULAR: See HPI. No palpitations or racing heart. PULMONARY: She has had a little bit of dry cough and some wheezing and chest tightness with the shortness of breath and dyspnea on exertion. GI: No abdominal pain. She had the nausea this morning, is now resolved. No vomiting. She had about 6-7 loose bowel movements yesterday, none today. No constipation. No blood or mucus in her stool. GENITOURINARY: No dysuria or hematuria. MUSCULOSKELETAL: No muscle aches or joint pains. SKIN: No rashes or lesions. NEUROLOGIC: No numbness, tingling, or focal weakness. PAST MEDICAL HISTORY: 1. Chronic systolic congestive heart failure with an ejection fraction of 15% to 20% in June 2018. 2. Dctadkti-vk-axjjqu aortic stenosis. 3. Coronary artery disease with previous coronary artery bypass grafting. 4. Severe peripheral vascular disease with history of multiple surgeries by Dr. Bailey. 5. Diabetes mellitus type 2, insulin dependent, takes up to 30 units of insulin at night depending on her blood sugars, but usually ends up using around 10-20. 6. Hypertension. 7. Hyperlipidemia. 8. Diabetic neuropathy. 9. Ischemic ulcerations of lower extremities in the past. PAST SURGICAL HISTORY: 1. AICD. 2. Right great toe amputation. 3. Right femoral bypass. 4. Subclavian stents. 5. External iliac artery stent. 6. Redo of right femoral to popliteal bypass with reverse saphenous vein harvested from the left leg and right external iliac stent with balloon angioplasty of a previously placed stent. This was done late last year. 7. Coronary artery bypass grafting x4. 8. Left carotid endarterectomy. 9. Hysterectomy. SOCIAL HISTORY: The patient used to smoke, quit tobacco about 30 years ago. No alcohol or illicit drugs. She lives at home with her brothers. She is a full code. Should she be incapacitated, her 2 brothers will be her medical decision makers, their names are Sourav Gill and Efren Gill. The patient is . FAMILY HISTORY: Significant for diabetes. ALLERGIES: TRAMADOL AND PENICILLIN. CURRENT MEDICATIONS: 1. Furosemide 40 mg tablets, 2 tablets in the morning and 1 tablet in the afternoon. 2. NovoLog insulin 10 units subcu t.i.d. with meals as needed for hyperglycemia, but has not had to use it recently. 3. Aspirin 81 mg daily. 4. Atorvastatin 40 mg at night. 5. Carvedilol 25 mg twice a day. 6. Clopidogrel 75 mg daily. 7. Zetia 10 mg daily. 8. Gabapentin 300 mg twice a day. 9. Levemir 10-30 units at night, usually about 20. 10. Nitrostat as needed. 11. Entresto 24/25 mg twice a day. 12. Spironolactone 25 mg twice a day. PHYSICAL EXAMINATION: VITAL SIGNS: Blood pressure 125/58, pulse 66, respirations 20, O2 saturation 99% on room air, temperature 97.8. GENERAL: This is a well-developed obese female who is moderately short of breath after ambulating to the bathroom just now. This improved after resting. HEENT: Pupils are equal, round, and reactive to light. Oropharynx is clear without lesions, erythema, or exudate. NECK: Supple. No lymphadenopathy. No thyroid nodules or enlargement. HEART: Regular rate and rhythm. She has a 2/6 holosystolic murmur. LUNGS: Clear to auscultation bilaterally. No wheezes, crackles, or rhonchi. ABDOMEN: Soft, nontender to palpation. Normoactive bowel sounds. No hepatosplenomegaly or other masses. EXTREMITIES: The patient has 1+ pitting edema to bilateral lower extremities. She states this is significantly better since the Lasix in the ER. SKIN: No rashes or lesions noted. NEUROLOGIC: Intact strength and sensation in all extremities. No facial droop. LABORATORY DATA: CBC with a white blood cell count of 4.5 which is similar to previous, her hemoglobin of 10.9 which is chronic, hematocrit of 33.4, platelet count is 75 which hers has dropped down to before. Complete metabolic panel is notable for a BUN of 28, creatinine of 1.28 which is a little bit bumped for her glucose of 197, total bilirubin of 1.6 which is chronic for her, and alkaline phosphatase of 115. The rest of her CMP was normal. Troponin was indeterminate at 0.091 initially and 0.113 on second check. CK-MB was normal. Brain natriuretic peptide was elevated at 7000 which is on the higher end for her when she comes in for exacerbations. IMAGING STUDIES: Chest x-ray, I did review the chest x-ray done in the emergency room along with the radiologist's report. It does show a cardiomegaly with pulmonary vascular engorgement and minimal bibasilar atelectasis as well as the AICD in place. EKG done in the emergency room shows normal sinus rhythm at 64 beats per minute with some indeterminate ST abnormalities but no significant ST-segment elevations, no T-wave inversions. ASSESSMENT: 1. Lpxir-ew-zdcgpxc systolic congestive heart failure. The patient is at least 10 pounds over on fluids and still having significant orthopnea and dyspnea on exertion with even minimal exertion. She will need to be placed inpatient in the hospital and diuresed with IV diuretics. Likely will need to be in the hospital for 2 overnights. We will go ahead and get an echocardiogram as we do not have one recently in the chart. We will continue spironolactone orally. 2. Delvocnr-og-zelegb aortic stenosis. We will check echocardiogram. 3. Chest pain with indeterminate troponins. This is likely strain from congestive heart failure exacerbation but we will continue to trend the troponins and we will monitor on telemetry overnight. We will also consult Cardiology, Dr. More who is the patient's binitrotoluene operator. She also appears to have seen Dr. Ibrahim in the past. 4. Diabetes mellitus type 2, insulin dependent. We will resume the patient's 20 units of long-acting insulin at night and we will put her on a diabetic diet and appears to have blood sugars before meals and at bedtime with insulin sliding scale. 5. History of coronary artery disease. Resume the patient's home medications. 6. Gastrointestinal prophylaxis. We will put the patient on famotidine while in the hospital. 7. Deep venous thrombosis prophylaxis. We will encourage the patient to ambulate. We cannot use SCDs due to her severe peripheral vascular disease and cannot use any Lovenox or heparin due to her low platelet count. CODE STATUS: The patient is a full code. Should she be incapacitated, her medical decision makers will be her brothers, Sourav and Efren Gill. Job ID: [id number]
[2019-08-14 23:37] LABS: Troponin I 0.118 ng/mL (< 0.028)
[2019-08-15] MEDS: Furosemide 40 MG/4 ML VIAL SLOW IVP SCH ×2 (05:21→14:48)
[2019-08-15 05:32] LABS: Anion Gap 14 mmol/L (10-20); BUN (Urea Nitrogen) 29 mg/dL (9.8-20.1); Calc. Creatinine Clearance 49 mL/min (70-130); Calcium 9.5 mg/dL (7.8-10.44); Carbon Dioxide 27 mmol/L (23-31); Chloride 100 mmol/L (98-107); Estimated GFR-MDRD 51; Glucose 191 mg/dL (83-110); Potassium 3.6 mmol/L (3.5-5.1); Sodium 137 mmol/L (136-145)
[2019-08-15 05:58] LABS: Hemoglobin 10.3 g/dL (12.0-16.0); Mean Corpuscular HGB CONC 33.7 g/dL (32.0-36.0); Mean Corpuscular Hemoglobin 33.4 pg (27.0-31.0); Mean Corpuscular Volume 98.8 fL (78.0-98.0); RBC Distribution Width 12.5 % (11.5-14.5); Red Blood Cell (RBC) Count 3.08 mill/uL (4.20-5.40)
[2019-08-15 07:59] LABS: Band 4 % (5-11); Lymphocytes 12 % (21-51); MDiff Complete? YES; Mean Platelet Volume 15.3 fL (7.4-10.4); Monocytes 11 % (0-10); Neutrophil 73 % (42-75); Platelet Clumps MODERATE; Platelet Count 88 thou/uL (130-400); Schistocytes SLIGHT = 2-5 cells (100X) (0-1/hpf); White Blood Cell (WBC) Count 3.9 thou/uL (4.8-10.8)
[2019-08-15] MEDS ORDERED: Carvedilol 3.125 MG TAB PO SCH (08:00)
[2019-08-15] MEDS: Spironolactone 25 MG TAB PO SCH ×2 (08:14→21:13)
[2019-08-15] MEDS: Ezetimibe 10 MG TAB PO SCH (08:14)
[2019-08-15] MEDS: Aspirin 81 mg Enteric Coated Tablet PO SCH (08:14)
[2019-08-15] MEDS: Clopidogrel Bisulfate 75 MG TAB PO SCH (08:14)
[2019-08-15] MEDS: Gabapentin 300 MG CAP PO SCH ×2 (08:14→21:13)
[2019-08-15] MEDS: Famotidine 20 MG TAB PO SCH ×2 (08:14→21:13)
[2019-08-15] MEDS: Carvedilol 25 MG TAB PO SCH ×2 (08:14→16:11)
[2019-08-15 08:31] LABS: Troponin I 0.096 ng/mL (< 0.028)
[2019-08-15] MEDS ORDERED: Enoxaparin Sodium 40 MG/0.4 ML SYRINGE SC SCH (09:00)
[2019-08-15] MEDS ORDERED: Insulin Glargine 20 UNITS in Pre-Filled Syringe 1 EACH SC SCH (09:00)
[2019-08-15] MEDS ORDERED: Magnesium 2 GM/50 ML 2 GM in Premix Bag 1 BAG IVPB SCH (10:30)
--- NOTE | 2019-08-15 11:49 | CON ---
DATE OF CONSULTATION: PRIMARY CARE DOCTOR: Xavier Leonard MD PRIMARY FLAT FOLDER: Destinee More MD PRIMARY HEART FAILURE DOCTOR: Asad Ibrahim MD PRIMARY CLAIMS PROCESSOR: Gary Clmeents MD REASON FOR CARDIOLOGY CONSULT: Congestive heart failure exacerbation. HISTORY OF PRESENT ILLNESS: Ms. Smallwood is a very present 74-year-old female with a significant history of combined congestive heart failure with AICD placement, gmxpmsjm-hr-tijich aortic stenosis, severe three-vessel coronary artery disease with a history of CABG, hypertension, hyperlipidemia, type 2 diabetes, peripheral artery disease with bypass by Dr. Bailey in February 2019. The patient was doing relatively well. The patient had followed [facility], seen by Dr. Ibrahim and she was doing well relatively stable till couple of days ago when she went with her family and had a fast food with fountain soft drink. Then, she started having shortness of breath and swelling in the lower extremities. She started having orthopnea and she gained almost 10 pounds and also the patient started having chest heaviness and tightness in chest. Due to those reason, the patient decided to present to the Emergency Department for further evaluation and treatment. After the patient received IV Lasix, the patient's condition is more stable. She is on room air at this moment. The patient denied any chest pain, heaviness, tightness, dizziness, lightheadedness, or any other cardiac complaints except shortness of breath when she moved to the bathroom. The patient had echocardiogram done at Dr. More office on August 03, 2019 with EF 20% to 25%, which was 15% to 20% in June 2018, grade 3 diastolic dysfunction, dilated right ventricle and mrzy-jw-mwgsuyhi bilateral atrium, dilated IVC and xauakvna-ym-pzkkuo aortic valve stenosis with RAMON 1.1 cm, gjin-iw-juvskgwc mitral valve regurgitation and severe tricuspid regurgitation with elevated RVSP and mild pulmonary regurgitation. The patient underwent a cardiac catheterization in September 2014, which shows severe three-vessel coronary artery disease with a patent SVG to OM1 to OM2, shows segment of three HACKETT anastomosis to the second OM of SVG. The patient underwent left bypass by Dr. Bailey in February 2019. PAST MEDICAL HISTORY: The patient's past medical history; PVD, PAD, GERD, diabetes type 2, left iliac occlusion, renal artery disease, hyperlipidemia, hypertension, obesity, severe coronary artery disease, chronic combined heart failure, and ischemic cardiomyopathy with AICD placement. PAST SURGICAL HISTORY: Bilateral tubal ligation, CABG x4 in 2004, hysterectomy, left CEA in [address] Carter, AICD placement in October 2017, bilateral subclavian stent placement in July 2017, bare-metal stent placement in the right distal common proximal and external iliac artery in September 2018 and status post right femoral suprageniculate popliteal artery bypass for limb king with rest pain and gangrene of the right lower extremity in September 2018, and right great toe amputation. FAMILY HISTORY: Positive for heart disease in the later age in her family. SOCIAL HISTORY: She is living with her brother. She stopped smoking in 1995. She used to smoke 2 pack-a-year history of smoking. No EtOH or illicit drug abuse. She used a walker, but she tried to walk around the house as an exercise. ALLERGIES: SHE IS ALLERGIC TO PENICILLIN, WHICH CAUSED HER TO HAVE URTICARIA. MEDICATIONS: 1. Plavix 75 mg once a day. 2. Aspirin 325 mg once a day. 3. Nitroglycerin 0.4 mg sublingual as needed. 4. Atorvastatin 40 mg once a day. 5. Zetia 10 mg once a day. 6. Levemir. 7. NovoLog. 8. Carvedilol 25 mg twice a day. 9. Entresto one tablet twice a day. 10. Spironolactone 25 mg once a day. 11. Lasix 40 mg twice a day. REVIEW OF SYSTEMS: A 12-point review of systems unless otherwise mentioned in HPI. PHYSICAL EXAMINATION: VITAL SIGNS: Blood pressure 119/54, temperature 97.8, pulse is 70 and sinus rhythm, O2 saturation 94% on room air, and respiratory rate at 20. GENERAL: The patient is alert and oriented x4, not in acute distress. HEENT: Head, normocephalic and atraumatic. Eyes, extraocular muscle movement intact. She wears glasses. ENT AND MOUTH: Oral and nasal mucosa moist without lesions. NECK: Supple. Normal range of motion. No JVD. RESPIRATORY: Rhonchi bilaterally and also diminished at the bases. The patient has intermittent cough. CARDIOVASCULAR: Regular rate and rhythm. Normal S1 and S2. There is no S3 or S4. She has a significant murmur to the bilateral lower medial sternal border and 2+ pulses in bilateral upper extremities. She has good pulses in bilateral posterior tibial pulse, but diminished at the dorsal pedis and bilateral popliteal pulse. The patient had 2+ pitting edema in the lower extremities, lower than midline of king. She had a discoloration in the bilateral lower extremities. Carotid pulses are present. Bruits in the left side, but no bruit or thrill on the right side. ABDOMEN: Soft and nontender. No mass to palpitate. Bowel sounds are present. SKIN: Warm and dry. No rash, lesion, or erythema noted. MUSCULOSKELETAL: The patient is able to move all extremities. The patient use a walker. NEUROLOGIC: The patient is alert and oriented x4. Nonfocal. PSYCHIATRIC: The patient's mood is appropriate. LABORATORY DATA: WBC 4.5, hemoglobin 10.3, hematocrit 30.4, and platelets 75 and 88. Sodium 137, potassium 3.6, BUN 29, creatinine 1.25, calcium 9.5, AST 18, and ALT 13. CK-MB 0.8; troponin 0.091, 0.0113, and 0.118; and BNP 7132.7. Total cholesterol 80, triglyceride 49, HDL 29, and LDL 41. Chest x-ray shows cardiomegaly with pulmonary vasculature at upper limits of normal. Minimal bibasilar atelectasis. ASSESSMENT AND PLAN: 1. Acute on chronic systolic and diastolic heart failure. The patient's BNP is more than 7000, which is her highest BNP ever since 2012 according to the patient's medical record. She is breathing well with room air. She is on the Lasix 40 mg IV push twice a day, carvedilol 25 mg twice a day, Entresto 24/ one tablet twice a day and she is on the spironolactone twice a day. We would like to continue current medication and echo order was stopped today since the patient had echocardiogram in July 2019, the result in the chart. 2. Severe three-vessel coronary artery disease. She denied any chest pain, heaviness, or tightness at this moment. She is on a beta jerica, angiotensin receptor blockers, aspirin, Plavix, atorvastatin, and Zetia. 3. Ischemic cardiomyopathy and history of automatic implantable cardioverter-defibrillator placement, which is managed by Dr. Clements as outpatient setting. 4. Hypertension. The patient's blood pressure is stable at this moment with current medication. 5. Hyperlipidemia. She is on the Lipitor. 6. Diabetes type 2, which is managed by primary care doctor. 7. Rvaoekzs-hz-cdwyvq aortic stenosis, which was with RAMON 1.1 cm, which was 0.8 in June 2018. We would like to continue to monitor with serial echocardiogram. 8. Severe peripheral artery disease with multiple stent and leg bypass in the past. She is on Lipitor, Plavix, and aspirin at this moment. We might have to change to Xarelto 2.5 mg twice a day. I would like to discuss with Dr. More. Thank you very much for Cardiology Service to participate in the care of this patient. We will follow along the patient's care team and make further recommendations as appropriate. Job ID: [id number]
[2019-08-15 14:32] VITALS: BMI 29.1
[2019-08-15] MEDS: HumaLOG 300 UNITS/3 ML VIAL SC PRN (14:48)
[2019-08-15] MEDS ORDERED: Non-Formulary Item 1 EACH (Levemir Flexpen [Levemir Flexpen] 20 UNIT) SC SCH (21:00)
[2019-08-15] MEDS: Insulin Glargine 20 UNITS in Pre-Filled Syringe 1 EACH SC SCH (21:13)
[2019-08-15] MEDS: Atorvastatin Calcium 40 MG TAB PO SCH (21:13)
--- NOTE | 2019-08-16 03:09 | PRG ---
DATE OF SERVICE: 08/15/2019 SUBJECTIVE: A 74-year-old female with congestive heart failure, [id number] aortic stenosis, coronary artery disease, hypertension, hyperlipidemia, diabetes mellitus type 2 as well as peripheral vascular disease, presented to the emergency room with shortness of breath. A workup was consistent with congestive heart failure exacerbation. She was started on IV diuretics. At this time, symptomatically, the patient feels much better. She denies any fever or chills. She has dry cough. REVIEW OF SYSTEMS: All other review of systems was reviewed and were found negative. CURRENT MEDICATIONS: Reviewed. PHYSICAL EXAMINATION: VITAL SIGNS: Temperature 98.5, pulse of 59, respirations of 16, blood pressure of 126/61, O2 saturations 96% on room air. GENERAL: A 74-year-old female in mild respiratory distress. Able to complete short phrases. HEENT: Head, atraumatic and normocephalic. Sclerae anicteric. Moist mucous membranes. No oral lesion. NECK: Supple. JVD elevated. No carotid bruit. LUNGS: Showed diminished air entry at bilateral bases with rhonchi and rales. No wheezing. Minimal accessory muscle use. HEART: S1, S2 present. Regular rate and rhythm. No rubs or gallops. ABDOMEN: Soft. Bowel sounds present. No rebound or guarding. EXTREMITIES: 1 to 2+ edema in bilateral lower extremity. NEUROLOGIC: Grossly nonfocal. PSYCHIATRIC: Alert, awake, oriented x3. Normal affect. LABORATORY FINDINGS: Telemetry monitoring by my review showed sinus rhythm. CBC showed WBC 3.9 with hemoglobin 10.3, hematocrit 30.4, platelet of 88. Creatinine 1.28 with BUN 28. Maximum troponin 0.118. Total bilirubin 1.6. Chest x-ray by my review showed pulmonary vascular congestion. IMPRESSION: 1. Acute on chronic combined systolic and diastolic heart failure exacerbation. 2. Coronary artery disease, status post coronary artery bypass grafting. 3. Elevated troponin secondary to congestive heart failure, suspected type 2 myocardial infarction present on admission. 4. Ischemic cardiomyopathy, status post AICD. 5. Hypertension. 6. Hyperlipidemia. 7. Diabetes mellitus type 2. 8. Moderate to severe aortic stenosis. 9. Severe peripheral vascular disease, status post stents as well as bypass. 10. Chronic kidney disease, stage 3. 11. Chronic anemia suspected due to nutritional deficiency. 12. Pancytopenia. 13. Penicillin allergy. PLAN: Continue telemetry monitoring. We will continue IV Lasix 40 mg twice a day. We will continue carvedilol at 25 mg twice daily along with Entresto as well as Aldactone. We will monitor labs on a daily basis. Continue fluid restriction. We will continue aspirin and Plavix. No heparin due to thrombocytopenia. Recheck labs in a.m. Current medications were reviewed. Job ID: [id number]
[2019-08-16] MEDS: Furosemide 40 MG/4 ML VIAL SLOW IVP SCH ×2 (04:56→14:39)
[2019-08-16 05:12] LABS: #Monocytes 0.6 thou/uL (0.11-0.59); #Neutrophils 2.5 thou/uL (1.40-6.50); %Basophils 0.9 % (0.0-1.0); %Eosinophils 0.7 % (0.0-10.0); %Lymphocytes 23.1 % (21.0-51.0); %Monocytes 14.1 % (0.0-10.0); %Neutrophils 61.3 % (42.0-75.0); Hemoglobin 10.4 g/dL (12.0-16.0); Mean Corpuscular HGB CONC 32.1 g/dL (32.0-36.0); Mean Corpuscular Hemoglobin 32.3 pg (27.0-31.0); Mean Platelet Volume 10.3 fL (7.4-10.4); Platelet Count 98 thou/uL (130-400); RBC Distribution Width 12.5 % (11.5-14.5); Red Blood Cell (RBC) Count 3.21 mill/uL (4.20-5.40); White Blood Cell (WBC) Count 4.1 thou/uL (4.8-10.8)
[2019-08-16 05:28] LABS: ALT (SGPT) 10 U/L (8-55); AST (SGOT) 14 U/L (5-34); Albumin 3.4 g/dL (3.4-4.8); Alkaline Phosphatase 101 U/L (40-110); Anion Gap 11 mmol/L (10-20); BUN (Urea Nitrogen) 27 mg/dL (9.8-20.1); Bilirubin, Total 1.5 mg/dL (0.2-1.2); Calc. Creatinine Clearance 44 mL/min (70-130); Calcium 9.5 mg/dL (7.8-10.44); Carbon Dioxide 33 mmol/L (23-31); Chloride 97 mmol/L (98-107); Estimated GFR-MDRD 47; Globulin 3.5 g/dL (2.4-3.5); Glucose 123 mg/dL (83-110); Magnesium 2.1 mg/dL (1.6-2.6); Potassium 3.7 mmol/L (3.5-5.1); Protein, Total 6.9 g/dL (6.0-8.3); Sodium 137 mmol/L (136-145)
[2019-08-16] MEDS: Clopidogrel Bisulfate 75 MG TAB PO SCH (09:33)
[2019-08-16] MEDS: Ezetimibe 10 MG TAB PO SCH (09:33)
[2019-08-16] MEDS: Aspirin 81 mg Enteric Coated Tablet PO SCH (09:33)
[2019-08-16] MEDS: Spironolactone 25 MG TAB PO SCH ×2 (09:33→21:01)
[2019-08-16] MEDS: Famotidine 20 MG TAB PO SCH ×2 (09:33→21:01)
[2019-08-16] MEDS: Gabapentin 300 MG CAP PO SCH ×2 (09:33→21:01)
[2019-08-16] MEDS: Carvedilol 25 MG TAB PO SCH (09:33)
--- NOTE | 2019-08-16 10:07 | CON ---
DATE OF CONSULTATION: ADDENDUM: Please refer to the note already dictated by my nurse practitioner, Molly Alba. INDICATION FOR CONSULTATION: This is a very unfortunate 74-year-old woman, who has multiple vascular problems and issues, coronary artery disease status post bypass surgery, and also congestive heart failure. She has undergone AICD implant in the past and has been treated medically. Her disease is significant and she is felt not to be a good candidate for any type of repeat operation or further intervention. I reviewed the records. I reviewed the note by the nurse practitioner, Molly Alba. I have seen and visited with the patient and I would agree with the assessment and plan as outlined by the nurse practitioner. This unfortunate lady was out with family and ate too much and had most likely salty food and became volume overloaded with severe increase in her BNP. We will continue to monitor her. We will diurese her and see how she does. We may need to readjust her medications. She also had some chest discomfort during the event with increasing shortness of breath. May need to consider whether or not we change some of her medications. She does also have multiple other problems such as diabetes and hypercholesterolemia, as well as severe coronary artery disease and also I believe she has diabetes. These will all be dealt with by the primary care service. At this time, we are more than happy to continue to follow the patient with you, but would agree with the assessment and plan outlined by the nurse practitioner. Job ID: [id number]
[2019-08-16] MEDS: Guaifenesin DM 100-10/5 ML UDCUP PO PRN (10:56)
--- NOTE | 2019-08-16 11:50 | PDOC.CPN ---
- Subjective Date: 08/16/19 Time: 11:56 Interval history: The pt seen and examined. No overnight events. No cardiac complaints. - Objective Allergies/Adverse Reactions: Allergies Allergy/AdvReac Type Severity Reaction Status Date / Time tramadol Allergy Intermediate Nausea Verified 08/14/19 21:21 Penicillins Allergy Rash Verified 08/14/19 21:21 Visit Medications: Current Medications Acetaminophen (Tylenol) 650 mg PO Q4H PRN PRN Reason: Headache/Fever/Mild Pain (1-3) Acetaminophen (Tylenol) 650 mg [place] Q4H PRN PRN Reason: Headache/Fever/Mild Pain (1-3) Aspirin (Ecotrin) 81 mg PO DAILY [facility] Last Admin: 08/16/19 09:33 Dose: 81 mg Atorvastatin Calcium (Lipitor) 40 mg PO HS [facility] Last Admin: 08/15/19 21:13 Dose: 40 mg Benzonatate (Tessalon) 100 mg PO TID PRN PRN Reason: Cough Carvedilol (Coreg) 25 mg PO BID-WM [facility] Last Admin: 08/16/19 09:33 Dose: 25 mg Clopidogrel Bisulfate (Plavix) 75 mg PO DAILY [facility] Last Admin: 08/16/19 09:33 Dose: 75 mg Dextrose/Water (Dextrose 50%) 25 gm SLOW IVP PRN PRN PRN Reason: Hypoglycemia Ezetimibe (Zetia) 10 mg PO DAILY [facility] Last Admin: 08/16/19 09:33 Dose: 10 mg Famotidine (Pepcid) 20 mg PO BID [facility] Last Admin: 08/16/19 09:33 Dose: 20 mg Furosemide (Lasix) 40 mg SLOW IVP 0600,1400 [facility] Last Admin: 08/16/19 04:56 Dose: 40 mg Gabapentin (Neurontin) 300 mg PO BID [facility] Last Admin: 08/16/19 09:33 Dose: 300 mg Glucagon (Glucagon) 1 mg IM PRN PRN PRN Reason: Hypoglycemia Guaifenesin/Dextromethorphan (Robitussin Dm) 15 ml PO Q4H PRN PRN Reason: Cough Last Admin: 08/16/19 10:56 Dose: 15 ml Dextrose/Water (D5w) 1,000 mls @ 0 mls/hr IV .Q0M PRN PRN Reason: Hypoglycemia Insulin Glargine 20 units/ (Miscellaneous Medication) 0.2 mls @ 0 mls/hr SC [facility] Last Admin: 08/15/19 21:13 Dose: 0.2 mls Insulin Human Lispro (Humalog) 0 units SC .MILD SLIDING SCALE PRN PRN Reason: Mild Correctional Scale Last Admin: 08/15/19 14:48 Dose: 3 unit Insulin Human Lispro (Humalog) 0 units SC .BEDTIME SLIDING SC PRN PRN Reason: Bedtime Correctional Scale Nitroglycerin (Nitrostat) 0.4 mg SL Q5MIN PRN PRN Reason: Chest Pain Ondansetron HCl (Zofran Odt) 4 mg PO Q6H PRN PRN Reason: Nausea/Vomiting Ondansetron HCl (Zofran) 4 mg IVP Q6H PRN PRN Reason: Nausea/Vomiting Sacubitril/Valsartan (Entresto 24 Mg-26 Mg Tablet) 1 tab PO BID [facility] Last Admin: 08/16/19 09:33 Dose: 1 tab Senna/Docusate Sodium (Senokot S) 2 tab PO BIDPRN PRN PRN Reason: Constipation Spironolactone (Aldactone) 25 mg PO BID [facility] Last Admin: 08/16/19 09:33 Dose: 25 mg Vital Signs & Weight: Vital Signs Temp Pulse Resp BP Pulse Ox 08/16/19 07:46 98.4 F 55 L 16 118/56 L 99 08/16/19 04:00 98.8 F 58 L 16 91/44 L 96 Admit Weight 172 lb 8 oz Weight 164 lb 8 oz - Physical Exam General: alert & oriented x3 HEENT: mucus membranes moist Neck: supple neck Cardiac: regular rate and rhythm, S1/S2 Lungs: clear to auscultation Extremities: other: (2+ pitting BLE edema;) - Labs Result Diagrams: 08/16/19 04:47 08/16/19 04:47 Troponin/CKMB CK-MB (CK-2) 0.8 ng/mL (0-6.6) 08/14/19 17:02 Troponin I 0.096 ng/mL (< 0.028) H 08/15/19 05:00 - Telemetry Sinus rhythms and dysrhythmias: sinus rhythm - Assessment/Plan Assessment/Plan: 1. Acute on chronic combined HF with EF 20-25% (15-20% in 06/2018) and grade III dd in 07/2019 and BNP > 7000 - output > 3500 ml yesterday; stable with RA; Cont. Lasix 40mg IV BID, Coreg 25mg BID, Entresto 24/ BID, and Spironolactone BID. 2. Ischemic CMY with hx of AICD placement in 2017 3. Severe CAD with hx of CABG x4 in 2003 - 4. HTN - stable 5. HLD - on Statin 6. DM type 2 7. PVD with s/p Rt 1st toe amputation, bilat Subclavian stent placement in 2017, BMS to rt distal common prox and external iliac artery in 09/2018 and s/p Rt fem suprageniculate popliteal artery bypass in 09/2018 - strongly recommend to cont walking regimen 8. Hx of Lt CDA in 2015 MAR reviewed * Echo in 07/2019 with EF 20-25% (15-20% in 06/2018), grade III dd, dilated RV, mild-mod dilated bilat atrium, dilated IVC, mild [place], mod-severe with RAMON 1.1 cm, mild-mod MR, and severe TR with elvated RVSP. Pt. seen and eval. by me. She seems back to her baseline after diuresis. She has no cardiac complaints today. I agree with the A/P by theNP. Chest clear. Regular rhyth. Bradycardia. Decrease Coreg to 12.5 mg bid. Hopefully home tomorrow.
[2019-08-16] MEDS: Benzonatate 100 MG CAP PO PRN ×2 (14:45→21:01)
[2019-08-16] MEDS: Carvedilol 6.25 MG TAB PO SCH (17:43)
[2019-08-16] MEDS: HumaLOG 300 UNITS/3 ML VIAL SC PRN (17:50)
[2019-08-16] MEDS: Atorvastatin Calcium 40 MG TAB PO SCH (21:01)
[2019-08-16] MEDS: Insulin Glargine 20 UNITS in Pre-Filled Syringe 1 EACH SC SCH (21:05)
--- NOTE | 2019-08-16 23:28 | PDOC.HOSPP ---
- Subjective Encounter Date: 08/16/19 Encounter Time: 14:00 Subjective: Patient seen and examined for CHF flare. SOB improving. No CP. No new complaints. No overnight events - Objective Vital Signs & Weight: Vital Signs (12 hours) Temp Pulse Resp BP BP Pulse Ox 08/16/19 19:45 97.7 F 54 L 16 114/53 L 100 08/16/19 15:27 97.5 F L 57 L 18 109/49 L 97 Weight Admit Weight 172 lb 8 oz Weight 164 lb 8 oz I&O: 08/15/19 08/16/19 08/17/19 06:59 06:59 06:59 Intake Total 360 1560 500 Output Total 1999 0921 1400 Balance -1640 -2115 -900 Result Diagrams: 08/17/19 04:42 08/17/19 04:42 Additional Labs: Accuchecks 08/16/19 08/16/19 08/16/19 21:03 16:28 10:48 POC Glucose 193 H 228 H 152 H EKG Reviewed by me: Yes (Tele SR) Hospitalist ROS - Review of Systems Constitutional: denies: fever, chills, sweats, weakness, malaise, other Gastrointestinal: denies: nausea, vomiting, abdominal pain, diarrhea, constipation, melena, hematochezia, other Genitourinary: denies: dysuria, frequency, incontinence, hematuria, retention, other - Medication Medications: Active Medications Generic Name Dose Route Start Last Admin Trade Name Freq PRN Reason Stop Dose Admin Aspirin 81 mg 08/15/19 09:00 08/16/19 09:33 Ecotrin PO 81 mg DAILY MICHAEL Administration Atorvastatin Calcium 40 mg 08/15/19 21:00 08/16/19 21:01 Lipitor PO 40 mg HS MICHAEL Administration Benzonatate 100 mg 08/16/19 11:00 08/16/19 21:01 Tessalon PO 100 mg TID PRN Administration Cough Carvedilol 12.5 mg 08/16/19 17:00 08/16/19 17:43 Coreg PO 12.5 mg BID-WM MICHAEL Administration Clopidogrel Bisulfate 75 mg 08/15/19 09:00 08/16/19 09:33 Plavix PO 75 mg DAILY MICHAEL Administration Ezetimibe 10 mg 08/15/19 09:00 08/16/19 09:33 Zetia PO 10 mg DAILY MICHAEL Administration Furosemide 40 mg 08/15/19 06:00 08/16/19 14:39 Lasix SLOW IVP 40 mg 0600,1400 MICHAEL Administration Gabapentin 300 mg 08/15/19 09:00 08/16/19 21:01 Neurontin PO 300 mg BID MICHAEL Administration Guaifenesin/Dextromethorphan 15 ml 08/14/19 21:44 08/16/19 10:56 Robitussin Dm PO 15 ml Q4H PRN Administration Cough Insulin Glargine 20 units/ 0.2 mls @ 0 mls/hr 08/15/19 21:00 08/16/19 21:05 Miscellaneous Medication SC 0.2 mls HS MICHAEL Administration Insulin Human Lispro 0 units 08/14/19 21:44 08/16/19 17:50 Humalog SC 3 unit .MILD SLIDING SCALE PRN Administration Mild Correctional Scale Sacubitril/Valsartan 1 tab 08/15/19 09:00 08/16/19 21:02 Entresto 24 Mg-26 Mg Tablet PO 1 tab BID MICHAEL Administration Spironolactone 25 mg 08/15/19 09:00 08/16/19 21:01 Aldactone PO 25 mg BID MICHAEL Administration - Exam General Appearance: NAD Neck: symmetric, no JVD Heart: RRR, no gallops, no rubs, normal peripheral pulses Respiratory: no wheezes, no ronchi, normal chest expansion Respiratory - other findings: few rales at bases Gastrointestinal: soft, non-tender, non-distended, normal bowel sounds Extremities: no cyanosis Neurological: no new deficit Psychiatric: normal affect, A&O x 3 Hosp A/P - Plan 1. Acute on chronic combined systolic and diastolic heart failure exacerbation. 2. Coronary artery disease, status post coronary artery bypass grafting. 3. Elevated troponin secondary to congestive heart failure, suspected type 2 myocardial infarction present on admission. 4. Ischemic cardiomyopathy, status post AICD. 5. Hypertension. 6. Hyperlipidemia. 7. Diabetes mellitus type 2. 8. Moderate to severe aortic stenosis. 9. Severe peripheral vascular disease, status post stents as well as bypass. 10. Chronic kidney disease, stage 3. 11. Chronic anemia suspected due to nutritional deficiency. 12. Pancytopenia. 13. Penicillin allergy. PLAN: Cont IV Lasix Coreg dose reduced Cont Entresto/Aldactone Cont fluid restriction Cont sliding scale Cont BELTRAN BMP in AM
[2019-08-17 04:57] LABS: #Monocytes 0.6 thou/uL (0.11-0.59); #Neutrophils 2.8 thou/uL (1.40-6.50); %Basophils 0.8 % (0.0-1.0); %Eosinophils 0.9 % (0.0-10.0); %Monocytes 13.3 % (0.0-10.0); Hemoglobin 10.2 g/dL (12.0-16.0); Mean Corpuscular HGB CONC 33.1 g/dL (32.0-36.0); Mean Corpuscular Volume 99.7 fL (78.0-98.0); Mean Platelet Volume 9.6 fL (7.4-10.4); Platelet Count 104 thou/uL (130-400); RBC Distribution Width 12.5 % (11.5-14.5); White Blood Cell (WBC) Count 4.4 thou/uL (4.8-10.8)
[2019-08-17 05:17] LABS: ALT (SGPT) 9 U/L (8-55); AST (SGOT) 13 U/L (5-34); Albumin 3.4 g/dL (3.4-4.8); Alkaline Phosphatase 97 U/L (40-110); Anion Gap 11 mmol/L (10-20); BUN (Urea Nitrogen) 24 mg/dL (9.8-20.1); Bilirubin, Total 1.4 mg/dL (0.2-1.2); Calc. Creatinine Clearance 45 mL/min (70-130); Calcium 9.2 mg/dL (7.8-10.44); Carbon Dioxide 35 mmol/L (23-31); Chloride 92 mmol/L (98-107); Estimated GFR-MDRD 49; Globulin 3.4 g/dL (2.4-3.5); Glucose 116 mg/dL (83-110); Magnesium 1.9 mg/dL (1.6-2.6); Potassium 3.4 mmol/L (3.5-5.1); Protein, Total 6.8 g/dL (6.0-8.3); Sodium 135 mmol/L (136-145)
[2019-08-17] MEDS: Furosemide 40 MG/4 ML VIAL SLOW IVP SCH (06:49)
[2019-08-17] MEDS: Benzonatate 100 MG CAP PO PRN ×2 (06:51→16:50)
[2019-08-17] MEDS: Gabapentin 300 MG CAP PO SCH ×2 (08:21→20:55)
[2019-08-17] MEDS: Clopidogrel Bisulfate 75 MG TAB PO SCH (08:21)
[2019-08-17] MEDS: Spironolactone 25 MG TAB PO SCH ×2 (08:21→20:56)
[2019-08-17] MEDS: Carvedilol 6.25 MG TAB PO SCH ×2 (08:21→16:50)
[2019-08-17] MEDS: Ezetimibe 10 MG TAB PO SCH (08:21)
[2019-08-17] MEDS: Aspirin 81 mg Enteric Coated Tablet PO SCH (08:21)
[2019-08-17] MEDS ORDERED: Potassium Chloride 10 MEQ TAB PO SCH (08:30)
--- NOTE | 2019-08-17 12:16 | PDOC.CPN ---
- Subjective Date: 08/17/19 Time: 12:20 Interval history: The pt seen and examined. No overnight events. No cardiac complaints. She is in bed resting well without any cardiac complaints - Objective Allergies/Adverse Reactions: Allergies Allergy/AdvReac Type Severity Reaction Status Date / Time tramadol Allergy Intermediate Nausea Verified 08/14/19 21:21 Penicillins Allergy Rash Verified 08/14/19 21:21 Visit Medications: Current Medications Acetaminophen (Tylenol) 650 mg PO Q4H PRN PRN Reason: Headache/Fever/Mild Pain (1-3) Acetaminophen (Tylenol) 650 mg [place] Q4H PRN PRN Reason: Headache/Fever/Mild Pain (1-3) Aspirin (Ecotrin) 81 mg PO DAILY [facility] Last Admin: 08/17/19 08:21 Dose: 81 mg Atorvastatin Calcium (Lipitor) 40 mg PO HS [facility] Last Admin: 08/16/19 21:01 Dose: 40 mg Benzonatate (Tessalon) 100 mg PO TID PRN PRN Reason: Cough Last Admin: 08/17/19 06:51 Dose: 100 mg Carvedilol (Coreg) 12.5 mg PO BID-[facility] Last Admin: 08/17/19 08:21 Dose: 12.5 mg Clopidogrel Bisulfate (Plavix) 75 mg PO DAILY [facility] Last Admin: 08/17/19 08:21 Dose: 75 mg Dextrose/Water (Dextrose 50%) 25 gm SLOW IVP PRN PRN PRN Reason: Hypoglycemia Ezetimibe (Zetia) 10 mg PO DAILY [facility] Last Admin: 08/17/19 08:21 Dose: 10 mg Famotidine (Pepcid) 20 mg PO QPM [facility] Furosemide (Lasix) 40 mg PO 0900,1400 [facility] Gabapentin (Neurontin) 300 mg PO BID [facility] Last Admin: 08/17/19 08:21 Dose: 300 mg Glucagon (Glucagon) 1 mg IM PRN PRN PRN Reason: Hypoglycemia Guaifenesin/Dextromethorphan (Robitussin Dm) 15 ml PO Q4H PRN PRN Reason: Cough Last Admin: 08/16/19 10:56 Dose: 15 ml Dextrose/Water (D5w) 1,000 mls @ 0 mls/hr IV .Q0M PRN PRN Reason: Hypoglycemia Insulin Glargine 20 units/ (Miscellaneous Medication) 0.2 mls @ 0 mls/hr SC [facility] Last Admin: 08/16/19 21:05 Dose: 0.2 mls Insulin Human Lispro (Humalog) 0 units SC .MILD SLIDING SCALE PRN PRN Reason: Mild Correctional Scale Last Admin: 08/16/19 17:50 Dose: 3 unit Insulin Human Lispro (Humalog) 0 units SC .BEDTIME SLIDING SC PRN PRN Reason: Bedtime Correctional Scale Nitroglycerin (Nitrostat) 0.4 mg SL Q5MIN PRN PRN Reason: Chest Pain Ondansetron HCl (Zofran Odt) 4 mg PO Q6H PRN PRN Reason: Nausea/Vomiting Ondansetron HCl (Zofran) 4 mg IVP Q6H PRN PRN Reason: Nausea/Vomiting Sacubitril/Valsartan (Entresto 24 Mg-26 Mg Tablet) 1 tab PO BID [facility] Last Admin: 08/17/19 08:21 Dose: 1 tab Senna/Docusate Sodium (Senokot S) 2 tab PO BIDPRN PRN PRN Reason: Constipation Spironolactone (Aldactone) 25 mg PO BID [facility] Last Admin: 08/17/19 08:21 Dose: 25 mg Vital Signs & Weight: Vital Signs Temp Pulse Pulse Pulse Resp BP BP 08/17/19 11:26 98.5 F 56 L 14 08/17/19 10:07 59 L 64 114/51 L 115/57 L 08/17/19 07:09 98.2 F 57 L 16 08/17/19 05:24 08/17/19 04:00 98.9 F 57 L 14 BP BP Pulse Ox 08/17/19 11:26 115/67 100 08/17/19 10:07 08/17/19 07:09 124/53 L 94 L 08/17/19 05:24 94 L 08/17/19 04:00 121/53 L 96 Admit Weight 172 lb 8 oz Weight 161 lb 4.8 oz - Physical Exam General: alert & oriented x3 HEENT: mucus membranes moist Neck: supple neck Cardiac: regular rate and rhythm, S1/S2 Lungs: clear to auscultation Neuro: cranial nerve 2-12 intact Extremities: other: (1+ pitting BLE edema) - Labs Result Diagrams: 08/17/19 04:42 08/17/19 04:42 Troponin/CKMB CK-MB (CK-2) 0.8 ng/mL (0-6.6) 08/14/19 17:02 Troponin I 0.096 ng/mL (< 0.028) H 08/15/19 05:00 - Telemetry Sinus rhythms and dysrhythmias: sinus rhythm - Assessment/Plan Assessment/Plan: 1. Acute on chronic combined HF with EF 20-25% (15-20% in 06/2018) and grade III dd in 07/2019 and BNP > 7000 - total output at this moment is >8000 ml; stable with RA; Cont. Coreg 12.5 mg BID, Entresto 24/ BID, Spironolactone BID and Lasix 40mg IV BID which will be changed to PO BID from this afternoon. 2. Ischemic CMY with hx of AICD placement in 2017 3. Severe CAD with hx of CABG x4 in 2003 - 4. HTN - stable 5. HLD - on Statin 6. DM type 2 7. PVD with s/p Rt 1st toe amputation, bilat Subclavian stent placement in 2017, BMS to Rt distal common prox and external iliac artery in 09/2018 and s/p Rt fem suprageniculate popliteal artery bypass in 09/2018 - strongly recommend to cont walking regimen 8. Hx of Lt CDA in 2015 9. Bradycardia - stable since Coreg was decreased to 12.5mg BID from 25mg BID. MAR reviewed * Echo in 07/2019 with EF 20-25% (15-20% in 06/2018), grade III dd, dilated RV, mild-mod dilated bilat atrium, dilated IVC, mild [place], mod-severe with RAMON 1.1 cm, mild-mod MR, and severe TR with elevated RVSP. * From Cardiac standpoint, the pt is stable to d/c home if her condition cont stable after she receives 1st dose of PO Lasix. * The pt will f/u with Dr More' office within 2wks. Also recommend to f/u with CHF clinic in 1-2 wks. Pt. seen and eval. by me. I agree with the A/P by the RN [employer]CHO[employer]. Chest clear. RRR, pacing. No edema. stable for d/c.
[2019-08-17] MEDS ORDERED: Polyethylene Glycol 3350 17 GM Packet PO PRN (13:14)
[2019-08-17] MEDS ORDERED: Polyethylene Glycol 3350 17 GM Packet PO SCH (13:30)
[2019-08-17] MEDS ORDERED: Doxycycline 100 MG CAP PO SCH (13:30)
--- NOTE | 2019-08-17 13:47 | PDOC.HOSPP ---
- Subjective Encounter Date: 08/17/19 Encounter Time: 13:20 Subjective: Patient seen and examined for CHF flare. Sore throat with gen weakness. No fever per RN. Dry cough +. No other complaints. No overnight events - Objective Vital Signs & Weight: Vital Signs (12 hours) Temp Pulse Pulse Pulse Resp BP BP 08/17/19 11:26 98.5 F 56 L 14 08/17/19 10:07 59 L 64 114/51 L 115/57 L 08/17/19 07:09 98.2 F 57 L 16 08/17/19 05:24 08/17/19 04:00 98.9 F 57 L 14 BP BP Pulse Ox 08/17/19 11:26 115/67 100 08/17/19 10:07 08/17/19 07:09 124/53 L 94 L 08/17/19 05:24 94 L 08/17/19 04:00 121/53 L 96 Weight Admit Weight 172 lb 8 oz Weight 161 lb 4.8 oz I&O: 08/16/19 08/17/19 08/18/19 06:59 06:59 06:59 Intake Total 1560 740 Output Total 3675 2850 Balance -2115 -2110 Result Diagrams: 08/17/19 04:42 08/17/19 04:42 Additional Labs: Accuchecks 08/17/19 08/16/19 08/16/19 11:33 21:03 16:28 POC Glucose 239 H 193 H 228 H EKG Reviewed by me: Yes (Tele SR) Hospitalist ROS - Review of Systems Respiratory: reports: cough, dry. denies: shortness of breath, hemoptysis, SOB with excertion, pleuritic pain, sputum, wheezing, other Cardiovascular: denies: chest pain, palpitations, orthopnea, paroxysmal noc. dyspnea, edema, light headedness, other Gastrointestinal: denies: nausea, vomiting, abdominal pain, diarrhea, constipation, melena, hematochezia, other - Medication Medications: Active Medications Generic Name Dose Route Start Last Admin Trade Name Freq PRN Reason Stop Dose Admin Aspirin 81 mg 08/15/19 09:00 08/17/19 08:21 Ecotrin PO 81 mg DAILY MICHAEL Administration Atorvastatin Calcium 40 mg 08/15/19 21:00 08/16/19 21:01 Lipitor PO 40 mg HS MICHAEL Administration Benzonatate 100 mg 08/16/19 11:00 08/17/19 06:51 Tessalon PO 100 mg TID PRN Administration Cough Carvedilol 12.5 mg 08/16/19 17:00 08/17/19 08:21 Coreg PO 12.5 mg BID-WM MICHAEL Administration Clopidogrel Bisulfate 75 mg 08/15/19 09:00 08/17/19 08:21 Plavix PO 75 mg DAILY MICHAEL Administration Ezetimibe 10 mg 08/15/19 09:00 08/17/19 08:21 Zetia PO 10 mg DAILY MICHAEL Administration Gabapentin 300 mg 08/15/19 09:00 08/17/19 08:21 Neurontin PO 300 mg BID MICHAEL Administration Guaifenesin/Dextromethorphan 15 ml 08/14/19 21:44 08/16/19 10:56 Robitussin Dm PO 15 ml Q4H PRN Administration Cough Insulin Glargine 20 units/ 0.2 mls @ 0 mls/hr 08/15/19 21:00 08/16/19 21:05 Miscellaneous Medication SC 0.2 mls HS MICHAEL Administration Insulin Human Lispro 0 units 08/14/19 21:44 08/16/19 17:50 Humalog SC 3 unit .MILD SLIDING SCALE PRN Administration Mild Correctional Scale Sacubitril/Valsartan 1 tab 08/15/19 09:00 08/17/19 08:21 Entresto 24 Mg-26 Mg Tablet PO 1 tab BID MICHAEL Administration Spironolactone 25 mg 08/15/19 09:00 08/17/19 08:21 Aldactone PO 25 mg BID MICHAEL Administration - Exam General Appearance: NAD Heart: RRR, no gallops, no rubs Respiratory: no wheezes, no rales, no ronchi Gastrointestinal: soft, non-tender, non-distended, normal bowel sounds Extremities: no cyanosis Neurological: no new deficit Psychiatric: normal affect, A&O x 3 Hosp A/P - Plan 1. Acute on chronic combined systolic and diastolic heart failure exacerbation. 2. Coronary artery disease, status post coronary artery bypass grafting. 3. Elevated troponin secondary to CHF, suspected type 2 myocardial infarction. 4. Ischemic cardiomyopathy, status post AICD. 5. Hypertension. 6. Hyperlipidemia. 7. Diabetes mellitus type 2. 8. Moderate to severe aortic stenosis. 9. Severe peripheral vascular disease, status post stents as well as bypass. 10. Chronic kidney disease, stage 3. 11. Chronic anemia suspected due to nutritional deficiency. 12. Pancytopenia. 13. Penicillin allergy. PLAN: Lasix changed to PO Cont fluid restriction Cont current dose of Coreg CXR to r/o Pneumonia Cont Entresto/Aldactone Cont BELTRAN Cont other meds as above AM labs
[2019-08-17] MEDS: Furosemide 40 MG TAB PO SCH (13:56)
[2019-08-17] MEDS: HumaLOG 300 UNITS/3 ML VIAL SC PRN (13:56)
--- NOTE | 2019-08-17 14:20 | RAD ---
XR Chest Pa Lat STANDARD HISTORY: Cough, low-grade fever COMPARISON: 08/14/2019 FINDINGS: There are changes of median sternotomy. Left-sided pacer device remains in place. The heart is enlarged. The lungs are expanded without lobar consolidation, pneumothoraces, cheng pulmonary edema or pleural effusions. IMPRESSION: No radiographic evidence of acute cardiopulmonary process.
[2019-08-17] MEDS: Atorvastatin Calcium 40 MG TAB PO SCH (20:55)
[2019-08-17] MEDS: Senokot S 8.6-50 MG TAB PO SCH (20:56)
[2019-08-17] MEDS: Doxycycline 100 MG CAP PO SCH (20:56)
[2019-08-17] MEDS: Guaifenesin DM 100-10/5 ML UDCUP PO PRN (20:57)
[2019-08-17] MEDS: Heparin 5,000 UNITS/ML VIAL SC SCH (20:57)
[2019-08-17] MEDS ORDERED: Famotidine 20 MG TAB PO SCH (21:00)
[2019-08-17] MEDS: Insulin Glargine 20 UNITS in Pre-Filled Syringe 1 EACH SC SCH (21:03)
[2019-08-18 01:47] LABS: Bacteria/HPF None Seen HPF (None Seen); Bilirubin Negative (Negative); Blood, Urine Negative (Negative); Clarity Clear (Clear); Glucose, Urine (Dipstick) Normal (Negative); Leukocyte Negative Leu/uL (Negative); Nitrite Negative (Negative); Protein, Urine (Dipstick) Negative (Neg-Trace); RBC/HPF 0-3 HPF (0-3); Squamous Epithelial 0-3 HPF (0-3); Urobilinogen 3 mg/dL (Less than 2); WBC/HPF 0-3 HPF (0-3)
[2019-08-18 01:48] LABS: Urine Culture Reflex No No
[2019-08-18 05:36] LABS: #Eosinphils 0.1 thou/uL (0.0-0.7); #Lymphocytes 1.3 thou/uL (1.20-3.40); #Monocytes 0.6 thou/uL (0.11-0.59); #Neutrophils 3.2 thou/uL (1.40-6.50); %Basophils 0.3 % (0.0-1.0); %Lymphocytes 25.3 % (21.0-51.0); %Neutrophils 61.4 % (42.0-75.0); Mean Corpuscular HGB CONC 32.7 g/dL (32.0-36.0); Mean Corpuscular Hemoglobin 32.6 pg (27.0-31.0); Mean Corpuscular Volume 99.7 fL (78.0-98.0); Mean Platelet Volume 9.5 fL (7.4-10.4); Platelet Count 118 thou/uL (130-400); RBC Distribution Width 12.4 % (11.5-14.5); Red Blood Cell (RBC) Count 3.06 mill/uL (4.20-5.40); White Blood Cell (WBC) Count 5.2 thou/uL (4.8-10.8)
[2019-08-18 06:02] LABS: ALT (SGPT) 7 U/L (8-55); AST (SGOT) 11 U/L (5-34); Albumin 3.2 g/dL (3.4-4.8); Alkaline Phosphatase 99 U/L (40-110); Anion Gap 10 mmol/L (10-20); BUN (Urea Nitrogen) 26 mg/dL (9.8-20.1); Bilirubin, Total 1.1 mg/dL (0.2-1.2); Calc. Creatinine Clearance 44 mL/min (70-130); Calcium 8.7 mg/dL (7.8-10.44); Carbon Dioxide 33 mmol/L (23-31); Chloride 94 mmol/L (98-107); Estimated GFR-MDRD 48; Globulin 3.3 g/dL (2.4-3.5); Glucose 107 mg/dL (83-110); Magnesium 1.9 mg/dL (1.6-2.6); Potassium 3.4 mmol/L (3.5-5.1); Protein, Total 6.5 g/dL (6.0-8.3); Sodium 134 mmol/L (136-145)
[2019-08-18 08:23] VITALS: BP 104/50; TEMP 98.3
[2019-08-18] MEDS: Heparin 5,000 UNITS/ML VIAL SC SCH (09:46)
[2019-08-18] MEDS: Clopidogrel Bisulfate 75 MG TAB PO SCH (09:47)
[2019-08-18] MEDS: Senokot S 8.6-50 MG TAB PO SCH (09:47)
[2019-08-18] MEDS: Spironolactone 25 MG TAB PO SCH (09:47)
[2019-08-18] MEDS: Doxycycline 100 MG CAP PO SCH (09:47)
[2019-08-18] MEDS: Gabapentin 300 MG CAP PO SCH (09:47)
[2019-08-18] MEDS: Aspirin 81 mg Enteric Coated Tablet PO SCH (09:47)
[2019-08-18] MEDS: Carvedilol 6.25 MG TAB PO SCH (09:47)
[2019-08-18] MEDS: Ezetimibe 10 MG TAB PO SCH (09:47)
[2019-08-18] MEDS: Furosemide 40 MG TAB PO SCH (09:47)
--- NOTE | 2019-08-18 11:04 | DIS ---
DATE OF ADMISSION: 08/14/2019 DATE OF DISCHARGE: 08/18/2019 PRIMARY CARE PROVIDER: Xavier Leonard MD DISPOSITION: Discharged home. FINAL DIAGNOSES: Kdmpq-xc-lvlozbz systolic diastolic heart failure, class C; diabetes mellitus, type 2; chronic kidney disease, stage 3; coronary artery disease; hypertension. DISCHARGE MEDICATIONS: 1. Levemir 20 units subcutaneous h.s. 2. NovoLog 10 units subcutaneous t.i.d. 3. Gabapentin 300 mg p.o. b.i.d. 4. Entresto one p.o. b.i.d. 5. Plavix 75 mg a day. 6. Coreg 25 mg a day. 7. Zetia 10 mg a day. 8. Atorvastatin 40 mg h.s. 9. Aspirin 81 mg a day. 10. Spironolactone 25 mg p.o. b.i.d. 11. Lasix 40 mg p.o. 9 a.m. and 2 p.m. 12. Doxycycline 100 mg p.o. b.i.d. for 5 more days. ALLERGIES: TO TRAMADOL, PENICILLIN. CODE STATUS: Full. PENDING AT TIME OF DISCHARGE: Nothing. DIET: Diabetic with no added salt. HOSPITAL COURSE: The patient admitted to the Hospitalist Service through [facility] with lkftp-bg-oggrold combined heart failure, shortness of breath, chest discomfort. Chest x-ray showed cardiomegaly with pulmonary vascular congestion. She is placed on IV diuresis with Lasix. Otherwise, home medicines were continued. Accu-Chek sliding scales were monitored. Initial laboratory; white count 4.5, hemoglobin 10.9, platelet count 75,000. Initial electrolytes; sodium 136, potassium 4.1, BUN 28, creatinine 1.28. Troponins were 0.09, 0.1, 0.12. BNP was 7000. Her renal function remained stable. She was seen in consultation by Dr. Audie More. She agreed with the diuresis. Agreed no further cardiac evaluation was necessary. Followup chest x-ray showed clear lung davila. Recent echocardiogram revealed a cardiomyopathy with EF of approximately 20%. The patient is now feeling much better. She is being discharged on her home medicines. It is thought that her pulmonary vascular congestion and decompensation were due to dietary problems. She is being discharged on the Lasix dose recommended by Cardiology. Her chest is clear. Vital signs are stable. She has been asked to follow up with her PCP in 3 days. Job ID: [id number]
--- NOTE | 2019-08-18 13:42 | EKG ---
Test Reason : Blood Pressure : / mmHG Vent. Rate : 064 BPM Atrial Rate : 064 BPM P-R Int : 182 ms QRS Dur : 098 ms QT Int : 426 ms P-R-T Axes : 075 036 206 degrees QTc Int : 439 ms Normal sinus rhythm Possible Inferior infarct , age undetermined Cannot rule out Anterior infarct , age undetermined Marked ST abnormality, possible lateral subendocardial injury Abnormal ECG Confirmed by STORMY VAN ([id number]), senior technical editor ANAHI HU ([id number]) on 08/18/2019 1:42:37 PM Referred By: Confirmed By:STORMY Vallecillo
--- NOTE | 2019-08-21 05:43 | PQF ---
ELLIE BALLARD COUNCIL C MD [id number] [id number] CLINICAL DOCUMENTATION CLARIFICATION FORM: POST DISCHARGE Addendum to original discharge summary date: ____ Late entry note date: __ DATE: 08/21/2019 ATTN: EDUIN RODRIGUEZ MD Please exercise your independent, professional judgment in responding to the clarification form. Clinical indicators are provided on the bottom of this form for your review Please check appropriate box(s) to clarify if the following diagnosis has been ruled in or ruled out: Type 2 Myocardial infarction [ ] Ruled in diagnosis [ ] Continue to treat [ ] Resolved [ ] Ruled out diagnosis [ ] Cannot rule out diagnosis [ ] Other diagnosis [ x] Unable to determine For continuity of documentation, please document condition throughout progress notes and discharge summary. Thank You. CLINICAL INDICATORS - SIGNS / SYMPTOMS / LABS - Elevated troponin secondary to CHF, suspected type 2 myocardial infarction- Hospital PN,08/18, Brooke Carl MD - Acute on chronic combined systolic and diastolic heart failure exacerbation- Hospital PN,08/18, Brooke Carl MD - Troponin I: 0.091H on 08/13, 0.113H on , 0.096H on 08/14- Laboratory report - chest pain with indeterminate troponins, this likely strain from congestive heart failure exacerbation-H&N,08/18, Jeb dougherty MD RISK FACTORS - Ischemic cardiomyopathy, status post AICD- Hospital PN,08/18, Brooke Carl MD TREATMENTS - Aspirin chewable-AUG, 08/13 - Heparin.500units- AUG, 08/16 (This form is maintained as a part of the permanent medical record) 2014 [employer] All Rights Reserved Noah [email or web address]
== END 2019-08-18 12:08 | disposition home or self-care (01) | DRG 280 ==
LOC: ERS 16:32 → 2SW 18:45 → OBSVTOIN 21:44
PROVIDERS: ADMIT Emergency Medicine; ATTEND Internal Medicine
DX: I13.0 Hypertensive heart and chronic kidney disease with heart failure and stage 1 through stage 4 chronic kidney disease, or unspecified chronic kidney disease (principal); I50.43 Acute on chronic combined systolic (congestive) and diastolic (congestive) heart failure; I21.A1 Myocardial infarction type 2; D61.818 Other pancytopenia; N18.3 Chronic kidney disease, stage 3 (moderate); E11.22 Type 2 diabetes mellitus with diabetic chronic kidney disease; I73.9 Peripheral vascular disease, unspecified; E11.40 Type 2 diabetes mellitus with diabetic neuropathy, unspecified; E78.5 Hyperlipidemia, unspecified; I25.5 Ischemic cardiomyopathy; I25.10 Atherosclerotic heart disease of native coronary artery without angina pectoris; K21.9 Gastro-esophageal reflux disease without esophagitis; E66.9 Obesity, unspecified; D63.1 Anemia in chronic kidney disease; I35.0 Nonrheumatic aortic (valve) stenosis; Z79.4 Long term (current) use of insulin; Z88.6 Allergy status to analgesic agent; Z88.0 Allergy status to penicillin; Z95.810 Presence of automatic (implantable) cardiac defibrillator; I25.2 Old myocardial infarction; Z95.1 Presence of aortocoronary bypass graft; Z90.710 Acquired absence of both cervix and uterus; Z89.411 Acquired absence of right great toe; Z87.891 Personal history of nicotine dependence; Z95.5 Presence of coronary angioplasty implant and graft; Z68.28 Body mass index [BMI] 28.0-28.9, adult
CPT/HCPCS: 36415; 36416; 71045; 71046; 80048; 80053; 81001; 82553; 83735; 83880; 84484; 85025; 93005; 94760; 96374; J1644; J1815; J1940; J3475

== ENCOUNTER 2019-08-22 16:25 | Outpatient (CLI) | payer MEDICARE, MEDICAID ==
--- NOTE | 2019-08-22 16:42 | RAD ---
Right toes 3 views HISTORY: Pain. Laceration. COMPARISON: 07/19/2019. FINDINGS: Amputation of the proximal phalanx big toe is again demonstrated. Unchanged in appearance. Very mild osteoarthritic changes at the first metatarsophalangeal joint. No radiopaque foreign bodies or soft tissue gas are evident. No aggressive osseous erosions. There is calcification within the arterial structures. IMPRESSION: Stable postoperative appearance of the right toes. No aggressive osseous destruction. Atherosclerosis.
== END 2019-08-22 16:26 | disposition home or self-care (01) ==
LOC: BICRAD 16:25
PROVIDERS: ATTEND Podiatrist
DX: T81.89XD Other complications of procedures, not elsewhere classified, subsequent encounter (principal); Z98.890 Other specified postprocedural states

== ENCOUNTER 2019-10-05 10:00 | Inpatient (IN) | payer MEDICARE, MEDICAID, OTHER ==
[2019-10-05 10:56] VITALS: BMI 27.9
[2019-10-05 12:04] LABS: Anion Gap 13 mmol/L (10-20); BUN (Urea Nitrogen) 35 mg/dL (9.8-20.1); Calc. Creatinine Clearance 0 mL/min (70-130); Calcium 9.4 mg/dL (7.8-10.44); Carbon Dioxide 27 mmol/L (23-31); Chloride 104 mmol/L (98-107); Estimated GFR-MDRD 44; Glucose 148 mg/dL (83-110); Potassium 4.2 mmol/L (3.5-5.1); Sodium 140 mmol/L (136-145)
[2019-10-05 12:29] LABS: Lymphocytes 21 % (21-51); MDiff Complete? YES; Mean Corpuscular HGB CONC 32.1 g/dL (32.0-36.0); Mean Corpuscular Hemoglobin 32.9 pg (27.0-31.0); Mean Platelet Volume 9.7 fL (7.4-10.4); Monocytes 7 % (0-10); Neutrophil 71 % (42-75); Platelet Morphology Comment PLT clumps seen-ADEQ; RBC Distribution Width 12.2 % (11.5-14.5); RBC Morphology Normal; Red Blood Cell (RBC) Count 3.34 mill/uL (4.20-5.40); White Blood Cell (WBC) Count 4.6 thou/uL (4.8-10.8)
[2019-10-10] MEDS ORDERED: Levofloxacin 500 mg/D5W 100 ml Premix Bag ONE (07:56)
[2019-10-10] MEDS ORDERED: Ketorolac Tromethamine 30 MG/ML VIAL ONE (07:57)
[2019-10-10] MEDS ORDERED: Acetaminophen 500 MG TAB ONE (07:57)
[2019-10-10] MEDS ORDERED: Fentanyl 100 MCG/2 ML VIAL ONE ×2 (08:24→08:49)
[2019-10-10] MEDS ORDERED: PROPOFOL 200 MG/20 ML VIAL ONE (08:32)
[2019-10-10] MEDS ORDERED: PHENYLEPHRINE-NS 100 MCG/ML 10 ML SYRINGE ONE (08:32)
[2019-10-10] MEDS ORDERED: Dexamethasone 20 MG/5 ML VIAL ONE (08:32)
[2019-10-10] MEDS ORDERED: Ropivacaine 0.5% HCl/PF (150 MG/30 ML VIAL) ONE (08:32)
[2019-10-10] MEDS ORDERED: Glycopyrrolate 0.2 MG/ML 5 ML SYRINGE ONE (08:32)
[2019-10-10] MEDS ORDERED: EPHEDRINE 25 MG/5 ML SYRINGE ONE (08:32)
[2019-10-10] MEDS ORDERED: Ondansetron PF 4 MG/2 ML Vial ONE (08:32)
[2019-10-10] MEDS ORDERED: HYDROmorphone 2 MG/ML VIAL SLOW IVP PRN (10:39)
[2019-10-10] MEDS ORDERED: Promethazine HCl 25 MG/ML VIAL SLOW IVP PRN (10:39)
[2019-10-10] MEDS ORDERED: Promethazine HCl 25 MG/ML VIAL IM PRN ×2 (10:39→11:05)
[2019-10-10] MEDS ORDERED: Ondansetron HCl/PF 4 MG/2 ML Vial IVP PRN (10:39)
[2019-10-10] MEDS ORDERED: Dextrose 50% Abboject 50 ML SYRINGE ONE (10:43)
[2019-10-10] MEDS ORDERED: Dextrose 50% Abboject 50 ML SYRINGE SLOW IVP PRN ×2 (10:45→10:51)
--- NOTE | 2019-10-10 10:46 | OP ---
DATE OF PROCEDURE: 10/10/2019 PREOPERATIVE DIAGNOSES: PAD, ischemic rest pain in right foot, status post right fem-pop esjce-lxy-hntr and subsequent right fem-pop rzptm-ued-huzd, intolerable pain with narcotic use. POSTOPERATIVE DIAGNOSES: PAD, ischemic rest pain in right foot, status post right fem-pop ezgdt-xhn-hfpz and subsequent right fem-pop fvmii-dyd-vzfw, intolerable pain with narcotic use. PROCEDURE PERFORMED: Right dodkk-gdn-uxqf amputation. ANESTHESIA: Regional, LMA (cardiomyopathy 15% to 20%). ESTIMATED BLOOD LOSS: 100 mL. BLOOD TRANSFUSION: None. DESCRIPTION OF PROCEDURE: The patient was taken to the operating room, where under regional anesthesia and LMA, right lower extremity was prepared with ChloraPrep and draped in routine fashion. Incision was made for right xzerf-aol-ocnx amputation with a long posterior flap, and incision was carried down through skin, subcutaneous tissue, and fascia, dividing muscular bundles with the cautery, and vascular bundles divided between clamps and ligated with 2-0 Vicryl. Muscular layers divided with cautery. Tibia cleared off periosteum proximally and transected with a Gigli saw, beveling the anterior edge cephalad, smoothened the edges with a rasp. Fibula cut with a bone cutter an inch above the cut edge of the tibia. Final muscular attachments divided. Good hemostasis noted. Wound irrigated, good hemostasis ensured. Fascia approximated with 2-0 Vicryl and skin with raheem and sterile dressing applied. The patient tolerated the procedure well. Job ID: [id number]
[2019-10-10] MEDS ORDERED: Morphine 2 MG/ML SYRINGE SLOW IVP PRN (10:51)
[2019-10-10] MEDS ORDERED: HumaLOG 300 UNITS/3 ML VIAL SC PRN ×3 (10:51→19:23)
[2019-10-10] MEDS ORDERED: Morphine 4 MG/ML VIAL SLOW IVP PRN (10:51)
[2019-10-10] MEDS ORDERED: Dextrose 5% in Water 1,000 ML IV PRN (10:51)
[2019-10-10] MEDS ORDERED: Ondansetron PF 4 MG/2 ML Vial IVP PRN ×2 (10:51→11:05)
[2019-10-10] MEDS ORDERED: hydrALAZINE 20 MG/ML VIAL SLOW IVP PRN (10:51)
[2019-10-10] MEDS ORDERED: HYDROcodone/Acetaminophen 10/325 mg Tablet PO PRN (10:51)
[2019-10-10] MEDS ORDERED: Acetaminophen 500 MG TAB PO PRN (11:02)
[2019-10-10] MEDS ORDERED: Nitroglycerin 0.4 MG TAB (25 Tab Bottle) SL PRN (11:04)
[2019-10-10] MEDS ORDERED: HYDROcodone/Acetaminophen 5/325 mg Tablet PO PRN (11:04)
[2019-10-10] MEDS ORDERED: Acetaminophen 325 MG TAB PO PRN (11:05)
[2019-10-10] MEDS ORDERED: Ropivacaine HCl/PF 250 ML in Premix Bag 1 BAG NERVE BLCK SCH (11:05)
[2019-10-10] MEDS ORDERED: Zolpidem Tartrate 5 MG TAB PO PRN (11:05)
[2019-10-10] MEDS ORDERED: Fentanyl 100 MCG/2 ML VIAL SLOW IVP PRN (11:06)
--- NOTE | 2019-10-10 12:00 | HP ---
HISTORY OF PRESENT ILLNESS: Carmen Smallwood is a 74-year-old black female with severe PAD, status post toe amputation, right foot with continued pain despite undergoing right femoral-popliteal above the knee and subsequent right femoral-popliteal using saphenous vein below the knee. The patient seemed to be doing well initially, but then developed recurrent pain in her foot, not only at the surgical amputation site of the toe, but the entire forefoot. The patient is taking the hydrocodone for ischemic rest pain. She is brought in today for right below-knee amputation. She understands risks and benefits and consents. The patient is status post left carotid endarte[place] [address] Carter; in July 2017, bilateral subclavian artery stents by Dr. Bailey; on 08/01/2018, drainage of right leg abscess that healed secondarily; and subsequent procedures outlined above. I had performed on 11/22/2018 amputation of the right great toe through the proximal phalanx after femoral-popliteal bypass above the knee. I subsequently on 10/10/2019 perform the above-mentioned operation. ALLERGIES: TRAMADOL, PENICILLINS. HOME MEDICATIONS: Demadex, atorvastatin, aspirin, hydrocodone, Plavix, carvedilol, nitroglycerin, Levemir, gabapentin, Zetia, and spironolactone. PAST MEDICAL HISTORY: Coronary artery disease, followed by Dr. Audie More with 15% to 20% cardiac ejection fraction, last echocardiogram in June 2018. The patient has nonoperable coronary artery disease, treated medically. Insulin-dependent diabetes mellitus; hypertension; severe arteriosclerotic disease, vascular disease; external iliac artery stent; right femoral-popliteal above the knee; prosthetic graft below the knee, right vein; coronary artery bypass grafting, four vessels; hysterectomy; AICD. SOCIAL HISTORY: Tobacco cessation more than 30 years ago. She lives with family at home. She is a full code. The patient is . PHYSICAL EXAMINATION: VITAL SIGNS: Height 5 feet 4 inches, weight 163 pounds, 28 BMI. HEAD, EARS, EYES, NOSE, AND THROAT: Unremarkable. LUNGS: Clear to auscultation. CARDIAC: Regular rate and rhythm without murmur or gallop. ABDOMEN: Soft and nontender. EXTREMITIES: As noted above. Previous toe amputations as noted above. LABORATORY DATA: CKD, baseline. Hemoglobin 11. ASSESSMENT AND PLAN: 1. Peripheral arterial disease, arteriosclerotic vascular disease, status post femoral-popliteal above the knee prosthetic and then subsequent ddlev-jkm-guaq vein graft with recurrent pain due to distal disease. Plan; right ikgra-zqe-tujh amputation. She understands risks and benefits, consents. 2. Coronary artery disease with cardiomyopathy, followed by Dr. More. 3. Insulin-dependent diabetes mellitus. 4. Hypertension. Job ID: [id number]
[2019-10-10] MEDS: Sodium Chloride 0.9% 1,000 ML IV SCH ×2 (13:58→19:36)
[2019-10-10] MEDS: Gabapentin 300 MG CAP PO SCH ×3 (17:56→19:36)
[2019-10-10] MEDS: Carvedilol 25 MG TAB PO SCH (18:12)
[2019-10-10] MEDS: Atorvastatin Calcium 40 MG TAB PO SCH (19:36)
[2019-10-10] MEDS: Enoxaparin Sodium 40 MG/0.4 ML SYRINGE SC SCH (19:36)
[2019-10-10] MEDS: Spironolactone 25 MG TAB PO SCH (19:37)
[2019-10-10 19:53] LABS: ALT (SGPT) 8 U/L (8-55); AST (SGOT) 14 U/L (5-34); Albumin 3.5 g/dL (3.4-4.8); Alkaline Phosphatase 90 U/L (40-110); Anion Gap 15 mmol/L (10-20); BUN (Urea Nitrogen) 38 mg/dL (9.8-20.1); Calc. Creatinine Clearance 32 mL/min (70-130); Calcium 9.1 mg/dL (7.8-10.44); Carbon Dioxide 24 mmol/L (23-31); Chloride 98 mmol/L (98-107); Estimated GFR-MDRD 33; Globulin 3.5 g/dL (2.4-3.5); Glucose 252 mg/dL (83-110); Magnesium 1.9 mg/dL (1.6-2.6); Potassium 4.9 mmol/L (3.5-5.1); Sodium 132 mmol/L (136-145)
[2019-10-10 20:07] LABS: #Lymphocytes 0.5 thou/uL (1.20-3.40); #Monocytes 0.1 thou/uL (0.11-0.59); #Neutrophils 5.5 thou/uL (1.40-6.50); %Eosinophils 0.1 % (0.0-10.0); %Lymphocytes 8.1 % (21.0-51.0); %Monocytes 1.5 % (0.0-10.0); %Neutrophils 90.3 % (42.0-75.0); Hemoglobin 10.6 g/dL (12.0-16.0); MDiff Complete? YES; Mean Corpuscular HGB CONC 31.8 g/dL (32.0-36.0); Mean Corpuscular Hemoglobin 32.8 pg (27.0-31.0); Mean Platelet Volume 10.1 fL (7.4-10.4); Ovalocytes SLIGHT = 2-5 cells (100X) (0-1/hpf); Platelet Clumps MODERATE; Platelet Morphology Comment PLT clumps seen-LOW; Polychromasia SLIGHT = 2-3 cells (100X) (0-2/hpf); RBC Distribution Width 12.4 % (11.5-14.5); Red Blood Cell (RBC) Count 3.24 mill/uL (4.20-5.40); Schistocytes SLIGHT = 2-5 cells (100X) (0-1/hpf); Tear Drops SLIGHT = 2-5 cells (100X) (0-1/hpf); White Blood Cell (WBC) Count 6.1 thou/uL (4.8-10.8)
--- NOTE | 2019-10-10 20:46 | CON ---
DATE OF CONSULTATION: 10/10/2019 PRIMARY CARE PHYSICIAN: Xavier Leonard MD REASON FOR REFERRAL: Medical management. CHIEF COMPLAINT: None. HISTORY OF PRESENT ILLNESS: Ms. Smallwood is a 74-year-old woman who has been admitted for right jdtzx-wri-lpmq amputation with a history of peripheral arterial disease and persistent ischemic pain involving the right lower extremity. The patient had this procedure done earlier today. She has been referred for medical management given multiple comorbidities including hypertension, CAD, and diabetes. At present, the patient denies having any complaints. She states she feels well and has tolerated dinner without any nausea or vomiting. Denies any abdominal pain. No chest pain, palpitations, or shortness of breath. The patient did express concern over her blood pressure being on the low side. Her Coreg was held this afternoon, and her blood pressure is being monitored. Last blood pressure reading was done at 6:00 p.m. and was 111/71, improved from 103/48. The patient with glucose of 64 early this morning and more recently was 100. She did just have dinner. She states her glucose is usually under good control at home, and she normally takes 20 units of Lantus at night. The patient denies having any issues with her stools as of recently. No urinary symptoms. Per nurse, she has not had any urinary output since 1:00 p.m. and has had fluids going at 50 mL/h. She denies feeling any distention of the bladder or sensation of having to urinate. She does have known CKD. The patient without any abdominal discomfort. Denies having any dysuria in recent days. No fevers at home. All other review of systems are negative. At present, her pain is under good control. PAST MEDICAL HISTORY: 1. CAD, sees Dr. More, with most recent EF showing 15% to 20% EF. 2. Insulin-dependent diabetes mellitus. 3. Hypertension. 4. Severe arteriosclerotic disease. 5. Vascular disease. 6. CHF. 7. CKD. 8. Hypercholesterolemia. PAST SURGICAL HISTORY: 1. CABG x4. 2. Hysterectomy. 3. AICD. 4. External iliac artery stent; right femoral popliteal above the knee. 5. Prosthetic graft mejgl-cif-lbdg, right vein. 6. Status post right rmfib-kws-xzte amputation. SOCIAL HISTORY: The patient lives with her family. She is . Previously smoked, but more than 30 years ago. Denies any alcohol consumption or drug use. ALLERGIES: TRAMADOL AND PENICILLINS. CURRENT MEDICATIONS: 1. Atorvastatin. 2. Carvedilol. 3. Zetia. 4. Gabapentin. 5. [place]. 6. Insulin aspart 10 units subcu t.i.d. with meals p.r.n. 7. Levemir 20 units subcu at bedtime. 8. Nitroglycerin. 9. Entresto. 10. Spironolactone. 11. Torsemide. 12. Aspirin. 13. Plavix. PHYSICAL EXAMINATION: GENERAL: The patient appears well developed, well nourished, in no acute distress. VITAL SIGNS: Temperature 97.6, pulse 52, blood pressure 111/71, respirations 18, and O2 saturation 97% on room air. HEENT: Normocephalic and atraumatic. Pupils are equal, round, reactive to light. Sclerae icterus. Oropharynx is clear. NECK: Supple. LUNGS: Clear to auscultation bilaterally without wheezes, rales, or rhonchi. CARDIAC: Regular rate and rhythm. ABDOMEN: Soft, nontender, nondistended. Normoactive bowel sounds present. EXTREMITIES: No notable edema. SKIN: Warm and dry. NEUROLOGIC: Alert and oriented x3. LABORATORY DATA: Last obtained on October 05, 2019. White count 4.6, hemoglobin 11, hematocrit 34.3. BMP; sodium 140, potassium 4.2, BUN 35, creatinine 1.43, GFR 44 (renal function essentially stable but gradually worsening over several months). Calcium 9.4. IMPRESSION AND PLAN: Ms. Smallwood is a 74-year-old woman, status post right below knee amputation, who has been referred for medical management of the followin. Hypertension. The patient with low blood pressure since surgery. Has gentle IV fluids going, which we will continue. We will hold antihypertensives this evening and continue to monitor blood pressure. 2. Hyperlipidemia. Continue statin. 3. Congestive heart failure. The patient with an automatic implantable cardioverter-defibrillator and known history of heart failure. Last ejection fraction was 15% and 20%. As mentioned, we will continue gentle IV fluids. We will check BMP with labs. No evidence of fluid overload at present. 4. Decreased urinary output. Per RN, she has not had any urine output since 1:00 p.m. despite IV fluids and oral intake. The patient without any urinary symptoms or abdominal discomfort. No suprapubic discomfort on palpation. We will obtain a bladder scan to ensure patient is not retaining. UA and urine culture to be done. 5. Coronary artery disease. The patient had Coreg held earlier today due to low blood pressure, and heart rate also on the lower side in the 40s. Currently, heart rate is 52. We will obtain baseline EKG. 6. Diabetes mellitus. Continue to monitor blood glucose. We will cover with insulin sliding scale only tonight given glucose is on the low side. 7. Peripheral artery disease. The patient is status post right below knee amputation with good pain control present. Continue as per Dr. Tineo. 8. Code status, full. Surrogate decision maker is her brother, Efren Gill. 9. The patient's case was discussed with attending who agrees with plan of care as described above. Thank you for the consultation. We will continue to follow this patient with you. Job ID: [id number]
[2019-10-10] MEDS ORDERED: Non-Formulary Item 1 EACH (Levemir Flexpen [Levemir Flexpen] 20 UNIT) SC SCH (21:00)
[2019-10-10] MEDS ORDERED: Insulin Glargine 20 UNITS in Pre-Filled Syringe 1 EACH SC SCH (21:00)
[2019-10-11 05:39] LABS: Anion Gap 13 mmol/L (10-20); BUN (Urea Nitrogen) 40 mg/dL (9.8-20.1); Calc. Creatinine Clearance 35 mL/min (70-130); Carbon Dioxide 24 mmol/L (23-31); Chloride 98 mmol/L (98-107); Estimated GFR-MDRD 36; Glucose 187 mg/dL (83-110); Potassium 4.7 mmol/L (3.5-5.1); Sodium 130 mmol/L (136-145)
[2019-10-11 06:01] LABS: #Lymphocytes 0.8 thou/uL (1.20-3.40); #Monocytes 0.5 thou/uL (0.11-0.59); #Neutrophils 5.4 thou/uL (1.40-6.50); %Basophils 0.1 % (0.0-1.0); %Eosinophils 0.1 % (0.0-10.0); %Lymphocytes 11.4 % (21.0-51.0); %Neutrophils 80.4 % (42.0-75.0); Elliptocytes SLIGHT = 2-5 cells (100X) (0-1/hpf); Hemoglobin 10.8 g/dL (12.0-16.0); MDiff Complete? YES; Mean Corpuscular HGB CONC 31.7 g/dL (32.0-36.0); Mean Corpuscular Hemoglobin 32.8 pg (27.0-31.0); Mean Platelet Volume 9.9 fL (7.4-10.4); Platelet Clumps MODERATE; Platelet Morphology Comment PLT clumps seen-LOW; RBC Distribution Width 12.4 % (11.5-14.5); White Blood Cell (WBC) Count 6.7 thou/uL (4.8-10.8)
[2019-10-11] MEDS: Sodium Chloride 0.9% 1,000 ML IV SCH (06:15)
[2019-10-11] MEDS: HumaLOG 300 UNITS/3 ML VIAL SC PRN ×2 (06:15→12:58)
[2019-10-11] MEDS: Carvedilol 25 MG TAB PO SCH (08:49)
[2019-10-11] MEDS: Ezetimibe 10 MG TAB PO SCH (08:50)
[2019-10-11] MEDS: Clopidogrel Bisulfate 75 MG TAB PO SCH (08:50)
[2019-10-11] MEDS: Aspirin 81 mg Enteric Coated Tablet PO SCH (08:50)
[2019-10-11] MEDS: Gabapentin 300 MG CAP PO SCH ×5 (08:50→20:58)
[2019-10-11] MEDS: Torsemide 20 MG TAB PO SCH (08:51)
[2019-10-11] MEDS: Spironolactone 25 MG TAB PO SCH ×2 (08:51→20:57)
[2019-10-11] MEDS ORDERED: Carvedilol 25 MG TAB PO SCH (09:41)
[2019-10-11] MEDS ORDERED: Carvedilol 6.25 MG TAB PO SCH (09:45)
--- NOTE | 2019-10-11 12:46 | PDOC.HOSPP ---
- Subjective Encounter Date: 10/11/19 Encounter Time: 09:00 Subjective: overnight, bradycardic and borderline hypotensive but asymptomatic and known history of heart failure with severely reduced ejection fraction. reduced coreg dosage. Laying comfortably in bed and has no complaints. - Objective Vital Signs & Weight: Vital Signs (12 hours) Temp Pulse Resp BP Pulse Ox 10/11/19 12:00 97.9 F 52 L 14 112/60 99 10/11/19 07:56 98.1 F 52 L 16 107/42 L 100 10/11/19 03:44 97 10/11/19 03:23 97.9 F 54 L 16 107/64 97 Weight Weight 163 lb I&O: 10/10/19 10/11/19 10/12/19 06:59 06:59 06:59 Intake Total 1000 Output Total 500 Balance 500 Result Diagrams: 10/11/19 04:54 10/11/19 04:54 Additional Labs: Accuchecks 10/11/19 10/11/19 10/10/19 12:04 05:30 20:21 POC Glucose 250 H 185 H 300 H 10/10/19 14:00 POC Glucose 100 Hospitalist ROS - Review of Systems Constitutional: denies: fever, chills, sweats, weakness, malaise, other Respiratory: denies: cough, dry, shortness of breath, hemoptysis, SOB with excertion, pleuritic pain, sputum, wheezing, other Cardiovascular: denies: chest pain, palpitations, orthopnea, paroxysmal noc. dyspnea, edema, light headedness, other Gastrointestinal: denies: nausea, vomiting, abdominal pain, diarrhea, constipation, melena, hematochezia, other Musculoskeletal: denies: leg pain - Medication Medications: Active Medications Generic Name Dose Route Start Last Admin Trade Name Freq PRN Reason Stop Dose Admin Aspirin 81 mg 10/11/19 09:00 10/11/19 08:50 Ecotrin PO 81 mg DAILY [facility] Administration Atorvastatin Calcium 40 mg 10/10/19 21:00 10/10/19 19:36 Lipitor PO 40 mg HS MICHAEL Administration Clopidogrel Bisulfate 75 mg 10/11/19 09:00 10/11/19 08:50 Plavix PO 75 mg DAILY MICHAEL Administration Ezetimibe 10 mg 10/11/19 09:00 10/11/19 08:50 Zetia PO 10 mg DAILY MICHAEL Administration Enoxaparin Sodium 40 mg 10/10/19 21:00 10/10/19 19:36 Lovenox SC 40 mg 2100 MICHAEL Administration Gabapentin 300 mg 10/10/19 15:00 10/11/19 08:50 Neurontin PO 300 mg TID MICHAEL Administration Gabapentin 300 mg 10/10/19 21:00 10/11/19 09:24 Neurontin PO Not Given BID MICHAEL Sodium Chloride 1,000 mls @ 50 mls/hr 10/10/19 11:15 10/11/19 06:15 Normal Saline 0.9% IV 1,000 mls .Q20H MICHAEL Administration Insulin Glargine 20 units/ 0.2 mls @ 0 mls/hr 10/10/19 21:00 10/10/19 19:30 Miscellaneous Medication SC Not Given HS MICHAEL As Directed Insulin Human Lispro 0 units 10/10/19 19:23 10/10/19 20:29 Humalog SC 3 unit .BEDTIME SLIDING SC PRN Administration Bedtime Correctional Scale Insulin Human Lispro 0 units 10/10/19 19:25 10/11/19 06:15 Humalog SC 2 unit .MILD SLIDING SCALE PRN Administration Mild Correctional Scale Sacubitril/Valsartan 1 tab 10/10/19 21:00 10/11/19 08:50 Entresto 24 Mg-26 Mg Tablet PO 1 tab BID MICHAEL Administration Spironolactone 25 mg 10/10/19 21:00 10/11/19 08:51 Aldactone PO 25 mg BID MICHAEL Administration Torsemide 20 mg 10/11/19 09:00 10/11/19 08:51 Demadex PO 20 mg DAILY MICHAEL Administration - Exam General Appearance: NAD, awake alert Eye: PERRL Neck: no JVD Neck - other findings: AICD with not overlying swelling or erythema Heart: no murmur, no gallops, no rubs Respiratory: CTAB, no wheezes, no rales, no ronchi Gastrointestinal: soft, non-tender, non-distended, normal bowel sounds Extremities: no edema Extremities - other findings: RLE BKA with overlying dressing. no erythema or swelling proximal to dressi Neurological: cranial nerve grossly intact Psychiatric: normal affect, normal behavior, A&O x 3 Hosp A/P - Plan #PAD s/p RKA amputation -pain well controlled -wound care as per surgery, wound care #CAD s/p CABG #HFrEF -this AM borderline hypotension and bradycardic, asymptomatic -has AICD -reduced coreg from 25mg bid to 12.5 bid -pending evaluation by cardiology #chronic hyponatremia -despite correction for hyperglycemia -euvolemic on exam; -stop IVF; fluid restriction #KB over CKD -BUN / Cr > 20 -likely cardiorenal/reduced effective perfusion -stop IVF; if doesn't improve or signs of hypervolemia, diurese #HTN -currently borderline hypotensive -reduce coreg as abovementioned #T2DM - poorly controlled; will adjust; expect insulin demand to decrease with wound healing and reduced stress
[2019-10-11] MEDS ORDERED: Insulin Glargine 15 UNITS in Pre-Filled Syringe 1 EACH SC SCH (13:05)
[2019-10-11] MEDS ORDERED: HumaLOG 300 UNITS/3 ML VIAL SC SCH (17:00)
[2019-10-11] MEDS: Carvedilol 6.25 MG TAB PO SCH (17:16)
[2019-10-11] MEDS: HumaLOG 300 UNITS/3 ML VIAL SC SCH (17:17)
--- NOTE | 2019-10-11 17:44 | CON ---
DATE OF CONSULTATION: HISTORY OF PRESENT ILLNESS: Carmen Smallwood is a 74-year-old black female, a patient of Dr. More, who has severe peripheral vascular disease and yesterday underwent jrxqs-sfy-bacj amputation of the right leg. She has undergone previous vascular procedures of that leg, but continued to have intolerable pain. It was noted that she was bradycardic at times with heart rates in the low 50s and Cardiology consultation was requested. Ms. Smallwood denies any lightheadedness, dizziness, or syncope. She denies any chest discomfort or shortness of breath. Other than her leg, she has been feeling well. PAST MEDICAL HISTORY: 1. Coronary artery disease, status post CABG. 2. Aortic stenosis. 3. Hyperlipidemia. 4. Hypertension. 5. Obesity. 6. Diabetes. 7. GERD. 8. Ischemic cardiomyopathy with last ejection fraction in the office on 2019 of 20% to 25% with aortic valve area of 1.1 sq cm. OPERATIONS: 1. Right fojgi-ydb-pdqk amputation. 2. CABG. 3. Bilateral tubal ligation. 4. Hysterectomy. 5. Left carotid endarterectomy. 6. Single-chamber ICD placement in 10/2017. 7. Bilateral subclavian stent placement in 07/2017. 8. Right great toe amputation. 9. Bypass procedures on the right leg. MEDICATIONS: 1. Aspirin 81 daily. 2. Plavix 75 mg daily. 3. Atorvastatin 40 nightly. 4. Carvedilol 25 mg b.i.d. 5. Zetia 10 mg daily. 6. Gabapentin 300 b.i.d. 7. Insulin. 8. Nitroglycerin p.r.n. 9. Entresto 24/26 b.i.d. 10. Spironolactone 25 b.i.d. 11. Torsemide 20 daily. ALLERGIES: TRAMADOL AND PENICILLIN. SOCIAL HISTORY: She smoked 2 packs per day, but stopped in 1995. She does not drink alcohol. FAMILY HISTORY: Positive for coronary artery disease. REVIEW OF SYSTEMS: A 10-point review of systems is unremarkable. PHYSICAL EXAMINATION: VITAL SIGNS: Blood pressure 120/56 and pulse of 56. HEENT: PERRL. NECK: Supple. CHEST: Clear. CARDIAC: S1 and S2 are normal. There is a 2/6 systolic ejection murmur in the aortic area. ABDOMEN: Normal bowel sounds without tenderness or organomegaly. EXTREMITIES: Right BKA. No edema of the left leg. NEUROLOGIC: Grossly intact. LABORATORY DATA: EKG revealed normal sinus rhythm with inferior infarction and anterolateral T-wave changes. Hemoglobin 10.8, hematocrit 34.1, white count 6700, and platelets not performed. Sodium 130, potassium 4.7, chloride 98, carbon dioxide 24, BUN 40, and creatinine 1.68. BNP 3678.5. COVID negative. IMPRESSION: 1. Sinus bradycardia secondary to carvedilol dose. She does have a single- chamber implantable cardiac defibrillator and this is probably programed to 40 per minute. She appears to be asymptomatic in regard to this without lightheadedness, dizziness, or syncope. 2. Status post right kufbt-nyv-ndnr amputation. 3. Severe peripheral disease. 4. Chronic systolic and diastolic heart failure. 5. Status post coronary artery bypass graft. 6. Ischemic cardiomyopathy. 7. Hypertension. 8. Hyperlipidemia. 9. Diabetes. 10. Former smoker. 11. Ntgnpkga-wl-istzyk aortic stenosis. PLAN: The patient will be moved to telemetry. Her carvedilol dose has been reduced to 12.5 mg b.i.d., but this may need to be increased back depending upon her heart rate and blood pressure. Her ICD will be interrogated to see how often she paces the ventricle. If this is a chronic problem, then consideration may need to be given to upgrade to a dual-chamber ICD. However, from a symptom standpoint, I doubt that anything will need to be done. Job ID: [id number] MTDD
--- NOTE | 2019-10-11 18:08 | PRG ---
DATE OF SERVICE: 10/11/2019 SUBJECTIVE: Ms. Smallwood is doing well today. For her bradycardia, she was transferred to telemetry based on Dr. Lizarraga's recommendations. The patient is followed by Dr. More. The patient's Coreg has been held pending evaluation by Cardiology. Heart rate 50 to 56. The patient does not have any pain. Her pain is under good control. Rehab has accepted her. The patient is asymptomatic from her bradycardia. Dr. Lizarraga has reduced her carvedilol to 12.5 b.i.d. ICD has been interrogated. Dr. More will be seeing her tomorrow. Her right BKA amputation stump wound dressings are dry. OBJECTIVE: VITAL SIGNS: Temperature 97.6, heart rate 50, blood pressure 126/51. LABORATORY DATA: White count 6 and hemoglobin 10. ASSESSMENT AND PLAN: 1. Status post right below-knee amputation with severe peripheral arterial disease. Remove dressing tomorrow. Transfer to rehab and stable from Cardiology standpoint. 2. Bradycardia management per Cardiology. 3. Severe peripheral arterial disease with bilateral subclavian artery stents, status post coronary artery bypass graft. Job ID: [id number]
[2019-10-11] MEDS: Atorvastatin Calcium 40 MG TAB PO SCH (20:56)
[2019-10-11] MEDS: Enoxaparin Sodium 40 MG/0.4 ML SYRINGE SC SCH (20:56)
[2019-10-12] MEDS: HYDROcodone/Acetaminophen 10/325 mg Tablet PO PRN ×2 (00:05→05:35)
[2019-10-12 04:33] LABS: Anion Gap 16 mmol/L (10-20); BUN (Urea Nitrogen) 44 mg/dL (9.8-20.1); Calc. Creatinine Clearance 31 mL/min (70-130); Calcium 8.7 mg/dL (7.8-10.44); Carbon Dioxide 21 mmol/L (23-31); Chloride 99 mmol/L (98-107); Estimated GFR-MDRD 32; Glucose 135 mg/dL (83-110); Potassium 5.3 mmol/L (3.5-5.1); Sodium 131 mmol/L (136-145)
[2019-10-12 04:52] LABS: #Eosinphils 0.1 thou/uL (0.0-0.7); #Lymphocytes 1.7 thou/uL (1.20-3.40); #Monocytes 0.5 thou/uL (0.11-0.59); #Neutrophils 3.4 thou/uL (1.40-6.50); %Basophils 0.8 % (0.0-1.0); %Eosinophils 1.1 % (0.0-10.0); %Lymphocytes 29.4 % (21.0-51.0); %Monocytes 8.9 % (0.0-10.0); %Neutrophils 59.7 % (42.0-75.0); Hemoglobin 9.8 g/dL (12.0-16.0); MDiff Complete? YES; Macrocytosis SLIGHT = 6-15 cells (100X) (0-5/hpf); Mean Corpuscular HGB CONC 31.2 g/dL (32.0-36.0); Mean Corpuscular Hemoglobin 33.1 pg (27.0-31.0); Mean Platelet Volume 9.5 fL (7.4-10.4); Platelet Count 72 thou/uL (130-400); Platelet Morphology Comment PLT clumps seen-LOW; RBC Distribution Width 12.6 % (11.5-14.5); Red Blood Cell (RBC) Count 2.95 mill/uL (4.20-5.40); White Blood Cell (WBC) Count 5.7 thou/uL (4.8-10.8)
--- NOTE | 2019-10-12 06:03 | EKG ---
Test Reason : ROUTINE Blood Pressure : / mmHG Vent. Rate : 063 BPM Atrial Rate : 063 BPM P-R Int : 158 ms QRS Dur : 106 ms QT Int : 440 ms P-R-T Axes : 063 047 223 degrees QTc Int : 450 ms Normal sinus rhythm Inferior infarct (cited on or before 14-AUG-2019) Abnormal ECG When compared with ECG of 14-AUG-2019 16:46, No significant change was found Confirmed by DR. Charley NAQVI ([id number]) on 10/12/2019 6:03:21 AM Referred By: JEAN CARLOS PUENTE Confirmed By:DR. Charley NAQVI
--- NOTE | 2019-10-12 08:28 | PDOC.CPN ---
- Subjective Date: 10/12/19 Time: 08:33 Interval history: The pt seen and examined. No overnight events. No cardiac complaints. Only pain she has now is at Rt BKA site - Objective Allergies/Adverse Reactions: Allergies Allergy/AdvReac Type Severity Reaction Status Date / Time tramadol Allergy Intermediate Nausea Verified 10/05/19 10:56 Penicillins Allergy Rash Verified 10/05/19 10:56 Visit Medications: Current Medications Acetaminophen (Tylenol) 1,000 mg PO Q6H PRN PRN Reason: Moderate to Severe Pain (6-10) Acetaminophen (Tylenol) 650 mg PO Q6H PRN PRN Reason: FEVER/PAIN (1-3) Hydrocodone Bitart/Acetaminophen ([place] 10/325) 1 tab PO Q6H PRN PRN Reason: Mild-Moderate Pain (1-5) Hydrocodone Bitart/Acetaminophen ([place] 10/325) 2 tab PO Q6H PRN PRN Reason: Severe Pain (7-10) Last Admin: 10/12/19 05:35 Dose: 2 tab Aspirin (Ecotrin) 81 mg PO DAILY [facility] Last Admin: 10/11/19 08:50 Dose: 81 mg Atorvastatin Calcium (Lipitor) 40 mg PO HS [facility] Last Admin: 10/11/19 20:56 Dose: 40 mg Carvedilol (Coreg) 12.5 mg PO BID-WM [facility] Last Admin: 10/11/19 17:16 Dose: Not Given Clopidogrel Bisulfate (Plavix) 75 mg PO DAILY [facility] Last Admin: 10/11/19 08:50 Dose: 75 mg Dextrose/Water (Dextrose 50%) 25 gm SLOW IVP PRN PRN PRN Reason: Hypoglycemia Ezetimibe (Zetia) 10 mg PO DAILY [facility] Last Admin: 10/11/19 08:50 Dose: 10 mg Enoxaparin Sodium (Lovenox) 40 mg SC 2100 [facility] Last Admin: 10/11/19 20:56 Dose: 40 mg Fentanyl (Sublimaze) 50 mcg SLOW IVP Q1H PRN PRN Reason: Breakthrough Pain Last Admin: 10/12/19 03:22 Dose: 50 mcg Gabapentin (Neurontin) 300 mg PO BID [facility] Last Admin: 10/11/19 20:58 Dose: Not Given Glucagon (Glucagon) 1 mg IM PRN PRN PRN Reason: Hypoglycemia Hydralazine HCl (Apresoline) 10 mg SLOW IVP Q4H PRN PRN Reason: SBP > 170 or DBP > 100 Dextrose/Water (D5w) 1,000 mls @ 0 mls/hr IV .Q0M PRN PRN Reason: Hypoglycemia Ropivacaine 250 ml/ Device 250 mls @ 8 mls/hr NERVE BLCK INF [facility] Stop: 10/13/19 11:04 Last Admin: 10/11/19 19:04 Dose: 250 mls Insulin Glargine 15 units/ (Miscellaneous Medication) 0.15 mls @ 0 mls/hr SC HS [facility] Last Admin: 10/11/19 20:58 Dose: 0.15 mls Insulin Human Lispro (Humalog) 0 units SC .BEDTIME SLIDING SC PRN PRN Reason: Bedtime Correctional Scale Last Admin: 10/10/19 20:29 Dose: 3 unit Insulin Human Lispro (Humalog) 0 units SC .MILD SLIDING SCALE PRN PRN Reason: Mild Correctional Scale Last Admin: 10/11/19 12:58 Dose: 3 unit Insulin Human Lispro (Humalog) 5 units SC TID-WM [facility] Last Admin: 10/11/19 17:17 Dose: 5 unit Morphine Sulfate (Morphine) 2 mg SLOW IVP Q2H PRN PRN Reason: Mild Pain (1-3) Last Admin: 10/12/19 02:26 Dose: 2 mg Morphine Sulfate (Morphine) 4 mg SLOW IVP Q2H PRN PRN Reason: Moderate Pain (4-6) Nitroglycerin (Nitrostat) 0.4 mg SL Q5MIN PRN PRN Reason: Chest Pain Ondansetron HCl (Zofran) 4 mg IVP Q6H PRN PRN Reason: Nausea Promethazine HCl (Phenergan) 12.5 mg IM Q4H PRN PRN Reason: Nausea Sacubitril/Valsartan (Entresto 24 Mg-26 Mg Tablet) 1 tab PO BID [facility] Last Admin: 10/11/19 20:57 Dose: 1 tab Sodium Chloride (Flush - Normal Saline) 10 ml IVF PRN PRN PRN Reason: Saline Flush Spironolactone (Aldactone) 25 mg PO BID [facility] Last Admin: 10/11/19 20:57 Dose: 25 mg Torsemide (Demadex) 20 mg PO DAILY [facility] Last Admin: 10/11/19 08:51 Dose: 20 mg Zolpidem Tartrate (Ambien) 5 mg PO HSPRN PRN PRN Reason: Insomnia Vital Signs & Weight: Vital Signs Temp Pulse Resp BP Pulse Ox 10/12/19 04:00 97.6 F 48 L 22 H 111/49 L 96 10/11/19 23:39 52 L 118/55 L Admit Weight 163 lb Weight 163 lb - Physical Exam General: alert & oriented x3 HEENT: mucus membranes moist Neck: supple neck Cardiac: regular rate and rhythm, S1/S2 Lungs: decreased breath sounds Neuro: cranial nerve 2-12 intact Extremities: other: (Dry dressing to Rt BKA site) - Labs Result Diagrams: 10/12/19 03:46 10/12/19 03:46 - Telemetry Sinus rhythms and dysrhythmias: sinus rhythm - Assessment/Plan Assessment/Plan: 1. PVD (with bilat subclavian stent in 2017, BMS to Rt distal common prox and external iliac artery in 09/2018 and s/p Rt fem suprageniculate popliteal artery bypass in 09/2018) and s/p Rt BKA on 10/10/2019 - on Plavix and ASA 2. Bradycardia - will interrogate AICD 3. KB on CKD 4. Chronic combined HF - 5. Ischemia CMY with hx of AICD placement in 2017 - 6. severe CAD with s/p CABG x4 in 2003 7. HTN 8. HLD 9. DM type 2 10. Hx of Lt in 2015 MAR reviewed * Echo in 07/2019 wtih EF 20-25%, grade III dd, dilated RV, mild-mod dilated bilat atrium, dilated IVC, mild TX, mod-severe with RAMON 1.1 cm, mild-mod MR, and severe TR with elevated RVSP. Pt. seen and eval. by me. I agree with the A/P by the [employer]. The AICD was interrogated. She is pacing with the device< 0.4%. of the time. she has asymptomatic bradycardia. if the BP increases then resume higher dose of coreg.
[2019-10-12] MEDS: Carvedilol 6.25 MG TAB PO SCH (09:11)
[2019-10-12] MEDS: Clopidogrel Bisulfate 75 MG TAB PO SCH (09:11)
[2019-10-12] MEDS: Spironolactone 25 MG TAB PO SCH (09:12)
[2019-10-12] MEDS: Ezetimibe 10 MG TAB PO SCH (09:12)
[2019-10-12] MEDS: Gabapentin 300 MG CAP PO SCH (09:12)
[2019-10-12] MEDS: Aspirin 81 mg Enteric Coated Tablet PO SCH (09:12)
[2019-10-12] MEDS: Torsemide 20 MG TAB PO SCH (09:12)
[2019-10-12] MEDS ORDERED: Dextrose 50% Abboject 50 ML SYRINGE SLOW IVP SCH (09:16)
[2019-10-12] MEDS ORDERED: Insulin Regular 300 UNITS/3 ML VIAL IVP SCH (09:16)
[2019-10-12] MEDS: HumaLOG 300 UNITS/3 ML VIAL SC SCH ×2 (09:18→12:45)
[2019-10-12] MEDS: HumaLOG 300 UNITS/3 ML VIAL SC PRN (09:18)
[2019-10-12 09:26] VITALS: TEMP 97.4
--- NOTE | 2019-10-12 11:42 | PDOC.HOSPP ---
- Subjective Encounter Date: 10/12/19 Encounter Time: 08:00 Subjective: no overnight events. this morning, complaining of severe continuous right leg pain at site of amputation. otherwise no complaints - Objective Vital Signs & Weight: Vital Signs (12 hours) Temp Pulse Resp BP BP Pulse Ox 10/12/19 09:11 113/50 L 10/12/19 09:00 97.4 F L 50 L 16 113/50 L 97 10/12/19 04:00 97.6 F 48 L 22 H 111/49 L 96 10/11/19 23:39 52 L 118/55 L Weight Admit Weight 163 lb Weight 163 lb I&O: 10/11/19 10/12/19 10/13/19 06:59 06:59 06:59 Intake Total 1000 860 Output Total 500 565 Balance 500 295 Result Diagrams: 10/12/19 03:46 10/12/19 03:46 Additional Labs: Accuchecks 10/12/19 10/12/19 10/12/19 11:10 10:51 06:24 POC Glucose 223 H 135 H 168 H 10/12/19 10/11/19 10/11/19 03:22 20:47 16:33 POC Glucose 159 H 199 H 249 H 10/11/19 12:04 POC Glucose 250 H Hospitalist ROS - Review of Systems Constitutional: denies: fever, chills, sweats, weakness, malaise, other Respiratory: denies: cough, dry, shortness of breath, hemoptysis, SOB with excertion, pleuritic pain, sputum, wheezing, other Cardiovascular: denies: chest pain, palpitations, orthopnea, paroxysmal noc. dyspnea, edema, light headedness, other Gastrointestinal: denies: nausea, vomiting, abdominal pain, diarrhea, constipation, melena, hematochezia, other - Medication Medications: Active Medications Generic Name Dose Route Start Last Admin Trade Name Freq PRN Reason Stop Dose Admin Hydrocodone Bitart/Acetaminophen 1 tab 10/10/19 10:51 10/12/19 09:19 [place] 10/325 PO 1 tab Q6H PRN Administration Mild-Moderate Pain (1-5) Hydrocodone Bitart/Acetaminophen 2 tab 10/10/19 10:51 10/12/19 05:35 [place] 10/325 PO 2 tab Q6H PRN Administration Severe Pain (7-10) Aspirin 81 mg 10/11/19 09:00 10/12/19 09:12 Ecotrin PO 81 mg DAILY MICHAEL Administration Atorvastatin Calcium 40 mg 10/10/19 21:00 10/11/19 20:56 Lipitor PO 40 mg HS MICHAEL Administration Carvedilol 12.5 mg 10/11/19 17:00 10/12/19 09:11 Coreg PO Not Given BID- MICHAEL Clopidogrel Bisulfate 75 mg 10/11/19 09:00 10/12/19 09:11 Plavix PO 75 mg DAILY MICHAEL Administration Ezetimibe 10 mg 10/11/19 09:00 10/12/19 09:12 Zetia PO 10 mg DAILY MICHAEL Administration Fentanyl 50 mcg 10/10/19 11:06 10/12/19 03:22 Sublimaze SLOW IVP 50 mcg Q1H PRN Administration Breakthrough Pain Gabapentin 300 mg 10/10/19 21:00 10/12/19 09:12 Neurontin PO 300 mg BID MICHAEL Administration Insulin Glargine 15 units/ 0.15 mls @ 0 mls/hr 10/11/19 13:05 10/11/19 20:58 Miscellaneous Medication SC 0.15 mls HS MICHAEL Administration As Directed Insulin Human Lispro 0 units 10/10/19 19:23 10/10/19 20:29 Humalog SC 3 unit .BEDTIME SLIDING SC PRN Administration Bedtime Correctional Scale Insulin Human Lispro 0 units 10/10/19 19:25 10/12/19 09:18 Humalog SC 2 unit .MILD SLIDING SCALE PRN Administration Mild Correctional Scale Insulin Human Lispro 5 units 10/11/19 17:00 10/12/19 09:18 Humalog SC 5 unit TID-WM [facility] Administration Morphine Sulfate 2 mg 10/10/19 10:51 10/12/19 02:26 Morphine SLOW IVP 2 mg Q2H PRN Administration Mild Pain (1-3) Sacubitril/Valsartan 1 tab 10/10/19 21:00 10/12/19 09:12 Entresto 24 Mg-26 Mg Tablet PO 1 tab BID MICHAEL Administration Spironolactone 25 mg 10/10/19 21:00 10/12/19 09:12 Aldactone PO 25 mg BID MICHAEL Administration Torsemide 20 mg 10/11/19 09:00 10/12/19 09:12 Demadex PO 20 mg DAILY MICHAEL Administration - Exam General Appearance: awake alert General - other findings: in distress due to pain Heart: no murmur, no gallops, no rubs Heart - other findings: sinus brent, asymptomatic Respiratory: CTAB, no wheezes, no rales, no ronchi, normal chest expansion, no tachypnea, normal percussion Gastrointestinal: soft, non-tender, non-distended, normal bowel sounds, no palpable masses, no hepatomegaly, no splenomegaly, no bruit Extremities: no edema Psychiatric: normal affect, normal behavior, A&O x 3 Hosp A/P - Plan #PAD s/p RKA amputation -pain continuous, poorly controlled -changed to long acting oxycontin considering renal function, continued morphine IVP PRN breakthrough pain -wound care as per surgery, wound care #CAD s/p CABG #HFrEF -continues to have asymptomatic breadycardia; based on records, bradycardic for at least months -has AICD -reduced coreg from 25mg bid to 12.5 bid -cardiology onboard #chronic hyponatremia -despite correction for hyperglycemia -mildly hypervolemic on exam; -fluid restriction; low dose lasix #KB over CKD -BUN / Cr > 20 -likely cardiorenal/reduced effective perfusion -stop IVF; lasix started #HTN -currently borderline hypotensive -reduce coreg as abovementioned #T2DM - better controlled; considering just changed pain medication which may affect stress hormones due to pain, will continue same regimen and follow
[2019-10-12] MEDS ORDERED: Furosemide 20 MG TAB PO SCH ×2 (12:00→14:00)
[2019-10-12] MEDS ORDERED: oxyCODONE ER 10 MG TAB PO SCH ×2 (14:00→21:00)
[2019-10-12 14:20] LABS: Potassium 4.6 mmol/L (3.5-5.1)
[2019-10-12] MEDS ORDERED: Triple Antibiotic Ointment 15 GM TUBE TOP SCH (15:00)
[2019-10-12] MEDS ORDERED: HYDROcodone/Acetaminophen 10/325 mg Tablet PO PRN ×2 (15:11)
[2019-10-12 16:30] LABS: Potassium 5.8 mmol/L (3.5-5.1)
--- NOTE | 2019-10-12 16:30 | DIS ---
DATE OF ADMISSION: 10/10/2019 DATE OF DISCHARGE: 10/12/2019 DISCHARGE DIAGNOSES: 1. Diabetes. 2. Rest pain, right foot. 3. Severe peripheral arterial disease with bilateral subclavian artery stents. 4. Coronary artery disease. HISTORY: A 74-year-old female with severe PAD, undergoing interventional evaluation with Dr. Bailey of diopu-gxx-trfi fem-pop and hhldp-cyq-zhuh femoral-popliteal with development of rest pain in the foot, not amenable to revascularization, now undergoing BKA. Admitted. Underwent that procedure and postoperatively, monitored her, but she was bradycardic and Dr. More, her human resources benefits administrator, saw her. They adjusted her beta-blockers, decreased her Coreg. Internal Medicine saw her during the hospitalization. She had regional pain block. It was discontinued on the day of transfer. She was transferred to rehab for continued therapy, to resume her medications with changes as indicated above. Follow up with Dr. Tineo in 2 to 3 weeks. Physical therapy, transfers, ambulation, walker. Job ID: [id number]
[2019-10-12 18:28] VITALS: BP 127/60
--- NOTE | 2019-10-12 18:51 | PDOC.EVN ---
Event Note - Event Note Event Note: Notiifed by nurse that patient being discharged. Earlier, added shorter acting furosemide on top of torsemide to address mild hyperkalemia (in addition to progressively worsening hyponatremia and mild hypervolemia). Potassium decreased 5.3 -> 4.6. Repeat potassium prior to DC 5.8, likely result of hemolysis or first sample dilute. Called [facility] and requested to repeat K stat and treat accordingly.
[2019-10-12] MEDS ORDERED: oxyCODONE ER 20 MG TAB PO SCH (21:00)
[2019-10-12] MEDS ORDERED: Enoxaparin Sodium 30 MG/0.3 ML SYRINGE SC SCH (21:00)
[2019-10-13] MEDS ORDERED: Triple Antibiotic Ointment 15 GM TUBE TOP SCH (09:00)
== END 2019-10-12 16:10 | DRG 240 ==
LOC: SURG A 10-10 06:52 → 2NO 10-11 13:57
PROVIDERS: ADMIT Specialist; ATTEND Specialist
PROC: 0Y6H0Z1 Detachment at Right Lower Leg, High, Open Approach (ICD-10-PCS; principal; 2019-10-10)
DX: E11.51 Type 2 diabetes mellitus with diabetic peripheral angiopathy without gangrene (principal); I13.0 Hypertensive heart and chronic kidney disease with heart failure and stage 1 through stage 4 chronic kidney disease, or unspecified chronic kidney disease; E87.1 Hypo-osmolality and hyponatremia; N17.9 Acute kidney failure, unspecified; I50.42 Chronic combined systolic (congestive) and diastolic (congestive) heart failure; I25.10 Atherosclerotic heart disease of native coronary artery without angina pectoris; N18.9 Chronic kidney disease, unspecified; E11.22 Type 2 diabetes mellitus with diabetic chronic kidney disease; E78.5 Hyperlipidemia, unspecified; K21.9 Gastro-esophageal reflux disease without esophagitis; I25.5 Ischemic cardiomyopathy; I08.3 Combined rheumatic disorders of mitral, aortic and tricuspid valves; E87.5 Hyperkalemia; R00.1 Bradycardia, unspecified; E11.65 Type 2 diabetes mellitus with hyperglycemia; T44.7X5A Adverse effect of beta-adrenoreceptor antagonists, initial encounter; Z88.0 Allergy status to penicillin; Z88.8 Allergy status to other drugs, medicaments and biological substances; Z95.1 Presence of aortocoronary bypass graft; Z95.810 Presence of automatic (implantable) cardiac defibrillator; Z87.891 Personal history of nicotine dependence; Z90.710 Acquired absence of both cervix and uterus
CPT/HCPCS: 36415; 36416; 80048; 80053; 83735; 83880; 85025; 86850; 86900; 86901; 87635; 88307; 88311; 93005; 93010; J1100; J1650; J1815; J1885; J1956; J2270; J2405; J2704; J2795; J3010; U0002

== ENCOUNTER 2019-10-09 09:37 | Outpatient (CLI) | payer MEDICARE, MEDICAID, OTHER ==
[2019-10-09 17:13] LABS: SARS-CoV-2 MS2 Positive; SARS-CoV-2 N Gene Negative; SARS-CoV-2 S Gene Negative; SARS-CoV-2 orf1ab Negative
== END 2019-10-09 09:38 | disposition home or self-care (01) ==
LOC: LABBT 09:37
PROVIDERS: ATTEND Specialist
DX: Z01.812 Encounter for preprocedural laboratory examination (principal); Z11.59 Encounter for screening for other viral diseases; I73.9 Peripheral vascular disease, unspecified
CPT/HCPCS: 87635; U0003

== ENCOUNTER 2019-11-03 14:19 | Inpatient (IN) | payer MEDICARE, MEDICAID, OTHER ==
[2019-11-03 15:18] LABS: Hemoglobin 10.2 g/dL (12.0-16.0); Mean Platelet Volume 8.2 fL (7.4-10.4); Platelet Count 192 thou/uL (130-400); RBC Distribution Width 14.1 % (11.5-14.5); Red Blood Cell (RBC) Count 3.19 mill/uL (4.20-5.40); White Blood Cell (WBC) Count 4.5 thou/uL (4.8-10.8)
[2019-11-03 15:19] LABS: #Lymphocytes 0.8 thou/uL (1.20-3.40); #Monocytes 0.4 thou/uL (0.11-0.59); #Neutrophils 3.2 thou/uL (1.40-6.50); %Basophils 0.7 % (0.0-1.0); %Eosinophils 0.4 % (0.0-10.0); %Lymphocytes 17.7 % (21.0-51.0); %Monocytes 9.8 % (0.0-10.0); %Neutrophils 71.4 % (42.0-75.0)
[2019-11-03 15:32] LABS: Anisocytosis SLIGHT = 6-15 cells (100X) (0-5/hpf); Hypochromia SLIGHT = 6-15 cells (100X) (0-5/hpf); MDiff Complete? YES; Macrocytosis SLIGHT = 6-15 cells (100X) (0-5/hpf); Mean Corpuscular HGB CONC 30.4 g/dL (32.0-36.0); Mean Corpuscular Hemoglobin 31.9 pg (27.0-31.0); Ovalocytes MODERATE= 6-15 cells (100X) (0-1/hpf); Poikilocytosis MODERATE=16-30 cells (100X) (0-5/hpf); Polychromasia SLIGHT = 2-3 cells (100X) (0-2/hpf); Schistocytes MODERATE= 6-15 cells (100X) (0-1/hpf); Target Cells SLIGHT = 2-5 cells (100X) (0-1/hpf)
[2019-11-03] MEDS ORDERED: Nitroglycerin 2% Ointment 1 INCH/1 GM Packet ONE (15:34)
[2019-11-03 15:44] LABS: ALT (SGPT) 12 U/L (8-55); AST (SGOT) 19 U/L (5-34); Albumin 3.8 g/dL (3.4-4.8); Alkaline Phosphatase 127 U/L (40-110); Anion Gap 19 mmol/L (10-20); BUN (Urea Nitrogen) 35 mg/dL (9.8-20.1); Bilirubin, Total 1.8 mg/dL (0.2-1.2); Calc. Creatinine Clearance 0 mL/min (70-130); Calcium 8.8 mg/dL (7.8-10.44); Carbon Dioxide 21 mmol/L (23-31); Chloride 101 mmol/L (98-107); Estimated GFR-MDRD 52; Globulin 3.7 g/dL (2.4-3.5); Glucose 129 mg/dL (83-110); Lipase 13 U/L (8-78); Potassium 4.8 mmol/L (3.5-5.1); Protein, Total 7.5 g/dL (6.0-8.3); Sodium 136 mmol/L (136-145)
--- NOTE | 2019-11-03 16:33 | ULT ---
RIGHT LOWER EXTREMITY VENOUS DUPLEX ULTRASOUND INCLUDING COLOR AND SPECTRAL DOPPLER IMAGIN11/03/19 HISTORY: Right leg pain, recent below the knee amputation. Exam performed from groin down to the trifurcation region with visualized greater saphenous, common f emoral, superficial femoral, profunda femoral, popliteal, and trifurcation region. Patient has had a prior BK amputation. There is phasic flow noted at all levels with normal compressibility and normal augmentation. No intraluminal thrombus. IMPRESSION: No evidence for right lower extremity deep venous thrombosis. POS: [facility]
--- NOTE | 2019-11-03 16:35 | RAD ---
CHEST ONE VIEW: 11/03/19 HISTORY: Altered mental status. Chest pain. COMPARISON: Radiograph 10/18/19. FINDINGS: The heart size is markedly enlarged. Similar appearance of the defibrillator lead. There is low grade pulmonary edema. Small effusions. No pneumothorax. IMPRESSION: Mild decompensated congestive heart failure. POS: HOME
[2019-11-03] MEDS ORDERED: Furosemide 100 MG/10 ML VIAL ONE (16:51)
[2019-11-03] MEDS ORDERED: Enoxaparin Sodium 80 MG/0.8 ML SYRINGE ONE (16:51)
[2019-11-03] MEDS ORDERED: Furosemide 40 MG/4 ML VIAL ONE (16:53)
[2019-11-03] MEDS ORDERED: Acetaminophen 325 MG TAB PO PRN (17:54)
[2019-11-03] MEDS ORDERED: hydrALAZINE 20 MG/ML VIAL SLOW IVP PRN (17:54)
[2019-11-03] MEDS ORDERED: Labetalol HCl 100 MG/20 ML VIAL SLOW IVP PRN (17:54)
[2019-11-03] MEDS ORDERED: Nitroglycerin 0.4 MG TAB (25 Tab Bottle) PO PRN (17:54)
[2019-11-03] MEDS ORDERED: Dextrose 50% Abboject 50 ML SYRINGE SLOW IVP PRN (17:54)
[2019-11-03] MEDS ORDERED: Dextrose 5% in Water 1,000 ML IV PRN (17:54)
[2019-11-03] MEDS ORDERED: HumaLOG 300 UNITS/3 ML VIAL SC PRN ×2 (17:54)
[2019-11-03] MEDS ORDERED: Ondansetron ODT 4 MG TAB PO PRN (17:54)
[2019-11-03 19:12] LABS: Troponin I 0.146 ng/mL (< 0.028)
--- NOTE | 2019-11-03 19:43 | HP ---
PRIMARY CARE PHYSICIAN: Xavier Leonard MD CHIEF COMPLAINT: "I was not feeling up to par and my chest was hurting me so bad." HISTORY OF PRESENT ILLNESS: Ms. Smallwood is a very pleasant 74-year-old female who has a history of coronary artery disease as well as diabetes mellitus. She also has a history of severe peripheral vascular disease and was recently hospitalized due to severe ischemia of her right lower extremity and ultimately had to have a right nslgs-biw-utvj amputation. She was treated and then sent to the inpatient rehabilitation facility, she says on the . She says while she was in the rehabilitation facility she was progressing well and it was noted that her kidney function she says was being affected by Lasix, and as a result, she was taken off all diuretics and all of the Lasix. She was doing well and was discharged home. She says that she went home on last Tuesday, she was doing well until about 2 days ago, she says she "wasn't feeling up to par," and she says she was feeling nauseated and says that basically while she was sitting up in the chair she just started vomiting. She says earlier that morning she felt very shaky and noticed that her chest was starting to hurt real bad. When we asked how bad the pain was in her chest, she said she rated it about a 5/10 to 6/10. She also noted that she was short of breath as well. She lives with her brother and she says that he started rubbing her in her back between her shoulder blades and this started to make the pain feel better; however, it never really went away. She also noted that she was having increased swelling in her left leg, and in the last couple of days prior to admission, she would have to sleep more "propped up." As a result of just generally not feeling well and she says she was "out of it," she came to the hospital for evaluation. Apparently, her brother called because she says that after not feeling well she basically when she says "came to herself again," the front maker lockstitch were in the house. She says she denies losing any consciousness. She denies any fevers or chills. No cough. No congestion. No headaches or dizziness. No sore throat, etc. The patient was evaluated in the ER and she was found to have an elevated proBNP as well as elevated troponin. On chest x-ray, there were findings consistent with volume overload and she is being admitted for CHF exacerbation. In the ER, she was given Lasix 80 mg IV as well as a dose of Lovenox and nitroglycerin paste and she says that she is feeling much improved. REVIEW OF SYSTEMS: All systems were reviewed and are negative except for that mentioned in the history of present illness. PAST MEDICAL HISTORY: Significant for: 1. Diabetes mellitus, type 2, which is insulin dependent. 2. Coronary artery disease, which is inoperable. 3. She also has a history of chronic systolic heart failure with an ejection fraction of 20% to 25%. Her last echo was in 07/2019. 4. Also has a history of hypercholesterolemia and hypertension. PAST SURGICAL HISTORY: 1. She has had a right pewna-cfe-kywm amputation. 2. Coronary artery bypass grafting. 3. Hysterectomy. 4. AICD placed. ALLERGIES: TO TRAMADOL, WHICH BASICALLY CAUSED HER TO FEEL SICK OR NAUSEATED; PENICILLIN CAUSES HER TO SWELL. SOCIAL HISTORY: She is . She lives with her brother. She is a former smoker. She used to smoke a half a pack a day for about 15 years. She denies any alcohol use or illicit drug use. Her brother, Efren Gill, who she would like to be her surrogate decision maker and she would like to be a full code. FAMILY HISTORY: Significant for diabetes mellitus in her mother as well as grandmother who had leukemia, father who had hypertension. CURRENT MEDICATIONS: Include: 1. Levemir 20 units daily. 2. She says she uses Humalog on a sliding scale basis 10 units as needed 3 times a day. 3. Gabapentin 200 mg twice daily. 4. Carvedilol 6.25 mg twice a day. 5. Lipitor 40 mg daily. 6. Aspirin 81 mg a day. PHYSICAL EXAMINATION: GENERAL: She is alert and oriented. She appears to be in no acute distress. She is well developed and well nourished. VITAL SIGNS: Blood pressure was 131/59, heart rate 64, respiratory rate of 14, temperature is 98.2, and O2 saturation was 99% on room air. HEENT: Pupils are equal, round, and reactive. Extraocular muscles are intact. Her sclerae anicteric. Throat, no erythema and no exudates. NECK: There is no adenopathy and no bruits. RESPIRATORY: Her lungs are essentially clear to auscultation. I did not hear any wheezing or rales. No rhonchi. However, she did have some decreased best breath sounds at the bases. CARDIOVASCULAR: She had a normal S1 and S2. There is no S3 or S4. She has a grade 2/6 systolic murmur radiating into the axilla. ABDOMEN: Obese. It is soft. It is nontender and nondistended. Positive for bowel sounds. There is no rebound and no guarding. No organomegaly. EXTREMITIES: She has a right gthym-crs-zbla amputation. The incision site is clear, although she did have some mild serous drainage. She still has the raheem in place. On the left lower extremity, she has 1 to 2+ pitting edema. Her dorsalis pedis pulse is a bit diminished on the left; however, her feet are warm and she has good capillary refill. NEUROLOGIC: She is moving all extremities and is grossly nonfocal. LABORATORY RESULTS: Sodium is 136, potassium 4.8, chloride is 101, CO2 is 21, BUN of 35, creatinine 1.23, and glucose is 129. Total bilirubin is 1.8. Natriuretic peptide was 7830. Troponin is 0.147. White blood cell count 4.5, hemoglobin 10.2, hematocrit is 33.5, and platelet count is 192. On her EKG, sinus rhythm, the rate was 63. She had some T-wave inversions in I, II, and aVL as well as V4, V5, and V6, but no other acute ST wave changes, that is by my reading. On her chest x-ray, she has cardiomegaly. The AICD is visible. She had some blunting of the costophrenic angles, consistent with a pleural effusion and increased pulmonary vascular markings, consistent with decompensated congestive heart failure, also by my reading. ASSESSMENT AND PLAN: This is a very pleasant 74-year-old female who presents to the emergency room with chest pain and evidence of decompensated heart failure, likely as a result of being taken off the Lasix; however, concerning is the chest discomfort and nausea and elevated troponin. She also has had recent surgery and could potentially have suffered a perioperative myocardial infarction. She will be admitted to the telemetry. 1. For hghwk-uc-vunphxt systolic heart failure, she will be treated with IV Lasix. We will continue the nitroglycerin paste and aspirin as we are already doing. Continue carvedilol and consult Cardiology. 2. Chest pain with elevated troponin. It is notable that her troponin levels were much higher earlier in the month, but she is at risk for perioperative myocardial infarction. Therefore, we will continue to trend her troponins. Continue the beta-jerica and aspirin and consider Lovenox and again consult Cardiology. 3. Diabetes mellitus. We will continue her insulin as well as a sliding scale. 4. Hypertension. Continue her blood pressure medicines and have p.r.n. medications available. 5. Nausea. This could be related to the current cardiac presentation. However, we may also go ahead and get an abdominal ultrasound and trend her LFTs as well. Otherwise, further treatment will be based on the patient's clinical course. Job ID: [id number]
[2019-11-03] MEDS: Famotidine 20 MG TAB PO SCH (20:34)
[2019-11-03 21:55] LABS: Troponin I 0.149 ng/mL (< 0.028)
[2019-11-03] MEDS: Acetaminophen/Codeine 30-300mg Tablet PO PRN (22:49)
[2019-11-03] MEDS ORDERED: Ondansetron PF 4 MG/2 ML Vial IVP PRN (22:50)
[2019-11-03] MEDS: Nitroglycerin 2% Ointment 1 INCH/1 GM Packet TOP SCH (22:51)
[2019-11-04] MEDS: Acetaminophen/Codeine 30-300mg Tablet PO PRN (02:55)
[2019-11-04 05:01] LABS: ALT (SGPT) 9 U/L (8-55); AST (SGOT) 15 U/L (5-34); Albumin 3.4 g/dL (3.4-4.8); Alkaline Phosphatase 105 U/L (40-110); Anion Gap 13 mmol/L (10-20); BUN (Urea Nitrogen) 34 mg/dL (9.8-20.1); Bilirubin, Total 1.4 mg/dL (0.2-1.2); Calc. Creatinine Clearance 48 mL/min (70-130); Calcium 8.7 mg/dL (7.8-10.44); Carbon Dioxide 27 mmol/L (23-31); Cardiac Risk 2.6 (Less than 4.5); Chloride 101 mmol/L (98-107); Cholesterol 63 mg/dl (< 200 Desired); Estimated GFR-MDRD 45; Globulin 3.4 g/dL (2.4-3.5); Glucose 154 mg/dL (83-110); HDL Cholesterol 24 mg/dL (>60 Neg Risk); LDL Cholesterol, Calculated 28 mg/dL; Potassium 4.2 mmol/L (3.5-5.1); Protein, Total 6.8 g/dL (6.0-8.3); Sodium 137 mmol/L (136-145); Triglycerides 53 mg/dL (Less than 150)
[2019-11-04] MEDS: Furosemide 40 MG/4 ML VIAL SLOW IVP SCH ×2 (06:09→14:09)
[2019-11-04] MEDS: Nitroglycerin 2% Ointment 1 INCH/1 GM Packet TOP SCH ×3 (06:09→22:44)
[2019-11-04] MEDS ORDERED: Carvedilol 6.25 MG TAB PO SCH (08:00)
[2019-11-04] MEDS: Carvedilol 6.25 MG TAB PO SCH ×2 (08:58→17:14)
[2019-11-04] MEDS ORDERED: Insulin Glargine 15 UNITS in Pre-Filled Syringe 1 EACH SC SCH (09:00)
[2019-11-04] MEDS: Aspirin 81 mg Enteric Coated Tablet PO SCH (09:01)
[2019-11-04] MEDS: Gabapentin 100 MG CAP PO SCH ×2 (09:01→20:02)
[2019-11-04] MEDS: Famotidine 20 MG TAB PO SCH ×2 (09:01→20:02)
--- NOTE | 2019-11-04 13:42 | PDOC.HOSPP ---
- Subjective Encounter Date: 11/04/19 Encounter Time: 11:45 Subjective: Ms Smallwood is seen for a follow up on CHF exacerbation, chest pain and nausea. She says she is feeling great and breathing easier. She said she was even able to lie flat without feeling increasingly short of breath. There is still some pain in her right leg which she has been taking Tylenol #3 for as needed. - Objective Vital Signs & Weight: Vital Signs (12 hours) Temp Pulse Pulse Pulse Resp BP BP 11/04/19 11:17 97.7 F 59 L 17 11/04/19 10:12 55 L 57 L 126/61 11/04/19 08:58 120/58 L 11/04/19 08:55 97.8 F 60 16 11/04/19 03:49 98.8 F 61 22 H BP BP Pulse Ox 11/04/19 11:17 117/53 L 97 11/04/19 10:12 125/58 L 11/04/19 08:58 11/04/19 08:55 120/58 L 95 11/04/19 03:49 111/57 L 96 Weight Weight 184 lb 8 oz I&O: 11/03/19 11/04/19 11/05/19 06:59 06:59 06:59 Intake Total 100 Output Total 300 Balance -200 Result Diagrams: 11/03/19 15:01 11/04/19 04:24 Additional Labs: Accuchecks 11/04/19 11/04/19 11/03/19 10:41 05:45 20:10 POC Glucose 138 H 146 H 154 H 11/03/19 16:27 POC Glucose 128 H EKG Reviewed by me: Yes Hospitalist ROS - Medication Medications: Active Medications Generic Name Dose Route Start Last Admin Trade Name Freq PRN Reason Stop Dose Admin Acetaminophen/Codeine Phosphate 1 tab 11/03/19 22:13 11/04/19 02:55 Tylenol #3 PO 1 tab Q4H PRN Administration Moderate Pain (4-6) Aspirin 81 mg 11/04/19 09:00 11/04/19 09:01 Ecotrin PO 81 mg DAILY MICHAEL Administration Carvedilol 6.25 mg 11/04/19 08:00 11/04/19 08:58 Coreg PO 6.25 mg BID-WM MICHAEL Administration Famotidine 20 mg 11/03/19 21:00 11/04/19 09:01 Pepcid PO 20 mg BID MICHAEL Administration Furosemide 40 mg 11/04/19 06:00 11/04/19 06:09 Lasix SLOW IVP 40 mg 0600,1400 MICHAEL Administration Gabapentin 200 mg 11/04/19 09:00 11/04/19 09:01 Neurontin PO 200 mg BID MICHAEL Administration Nitroglycerin 0.5 inch 11/03/19 22:00 11/04/19 06:09 Nitro-Bid 2% Ointment TOP 0.5 inch Q8HR MICHAEL Administration - Exam General Appearance: NAD, awake alert Neck: supple, symmetric, no lymphadenopathy Heart: RRR, no gallops, no rubs, murmur present Respiratory: CTAB, no wheezes, no rales, no ronchi Gastrointestinal: soft, non-tender, non-distended, normal bowel sounds Extremities: 1+ LE edema (left leg) Psychiatric: normal affect, normal behavior Hosp A/P (1) Acute on chronic heart failure Code(s): I50.9 - HEART FAILURE, UNSPECIFIED Status: Acute (2) Chest pain Code(s): R07.9 - CHEST PAIN, UNSPECIFIED Status: Acute (3) HTN (hypertension) Code(s): I10 - ESSENTIAL (PRIMARY) HYPERTENSION Status: Chronic (4) DMII (diabetes mellitus, type 2) Status: Chronic Qualifiers: Diabetes mellitus lobsterman insulin use: with lobsterman use - Plan Acute on chronic heart failure: contine IV lasix to diurese, tele monitor Chest pain: resolved, elevated troponin, cardiology consult DM II: stable HTN: stable Some drainage at BKA site- WCT consulted
--- NOTE | 2019-11-04 15:21 | PDOC.HOSPP ---
- Subjective Encounter Date: 11/04/19 Encounter Time: 15:20 Subjective: Ms. Smallwood was seen today in follow-up of CHF exacerbation. She says she feels better. She denies chest pain or dyspnea. - Objective Vital Signs & Weight: Vital Signs (12 hours) Temp Pulse Pulse Pulse Resp BP BP 11/04/19 11:17 97.7 F 59 L 17 11/04/19 10:12 55 L 57 L 126/61 11/04/19 08:58 120/58 L 11/04/19 08:55 97.8 F 60 16 11/04/19 03:49 98.8 F 61 22 H BP BP Pulse Ox 11/04/19 11:17 117/53 L 97 11/04/19 10:12 125/58 L 11/04/19 08:58 11/04/19 08:55 120/58 L 95 11/04/19 03:49 111/57 L 96 Weight Weight 184 lb 8 oz I&O: 11/03/19 11/04/19 11/05/19 06:59 06:59 06:59 Intake Total 100 Output Total 300 Balance -200 Result Diagrams: 11/03/19 15:01 11/04/19 04:24 Additional Labs: Accuchecks 11/04/19 11/04/19 11/03/19 10:41 05:45 20:10 POC Glucose 138 H 146 H 154 H 11/03/19 16:27 POC Glucose 128 H Hospitalist ROS - Medication Medications: Active Medications Generic Name Dose Route Start Last Admin Trade Name Freq PRN Reason Stop Dose Admin Acetaminophen/Codeine Phosphate 1 tab 11/03/19 22:13 11/04/19 02:55 Tylenol #3 PO 1 tab Q4H PRN Administration Moderate Pain (4-6) Aspirin 81 mg 11/04/19 09:00 11/04/19 09:01 Ecotrin PO 81 mg DAILY MICHAEL Administration Carvedilol 6.25 mg 11/04/19 08:00 11/04/19 08:58 Coreg PO 6.25 mg BID-WM MICHAEL Administration Famotidine 20 mg 11/03/19 21:00 11/04/19 09:01 Pepcid PO 20 mg BID MICHAEL Administration Furosemide 40 mg 11/04/19 06:00 11/04/19 14:09 Lasix SLOW IVP 40 mg 0600,1400 MICHAEL Administration Gabapentin 200 mg 11/04/19 09:00 11/04/19 09:01 Neurontin PO 200 mg BID MICHAEL Administration Nitroglycerin 0.5 inch 11/03/19 22:00 11/04/19 14:09 Nitro-Bid 2% Ointment TOP 0.5 inch Q8HR MICHAEL Administration - Exam Eye: PERRL, anicteric sclera Heart: RRR, no murmur, no gallops, no rubs, normal peripheral pulses Respiratory: CTAB, no wheezes, no rales, no ronchi, normal chest expansion, no tachypnea, normal percussion Gastrointestinal: soft, non-tender, non-distended, normal bowel sounds, no palpable masses, no hepatomegaly Extremities: no cyanosis, 1+ LE edema Hosp A/P (1) Acute on chronic combined systolic and diastolic ACC/AHA stage C congestive heart failure Code(s): I50.43 - ACUTE ON CHRONIC COMBINED SYSTOLIC AND DIASTOLIC HRT FAIL Status: Acute (2) HTN (hypertension) Code(s): I10 - ESSENTIAL (PRIMARY) HYPERTENSION Status: Chronic (3) CAD (coronary artery disease) Code(s): I25.10 - ATHSCL HEART DISEASE OF [place] CORONARY ARTERY W/O ANG PCTRS Status: Chronic Qualifiers: Coronary Disease-Associated Artery/Lesion type: bypass graft (4) DMII (diabetes mellitus, type 2) Status: Chronic Qualifiers: Diabetes mellitus group home insulin use: with group home use - Plan * Acute on chronic systolic heart failure exacerbation- improving with IV Lasix * Continue Carvediolol * Monitor renal function closely * Await further Cardiology evaluation * DM- blood glucose is stable- will re-start Lantus, and titrate up to her home dose as tolerated * HTN- blood pressure is stable
[2019-11-04] MEDS: Ezetimibe 10 MG TAB PO SCH (20:02)
[2019-11-04] MEDS: Atorvastatin Calcium 40 MG TAB PO SCH (20:02)
[2019-11-04] MEDS: Insulin Glargine 15 UNITS in Pre-Filled Syringe 1 EACH SC SCH (20:03)
[2019-11-04 20:13] LABS: Bacteria/HPF 4+ HPF (None Seen); Bilirubin Negative (Negative); Blood, Urine Negative (Negative); Clarity Turbid (Clear); Glucose, Urine (Dipstick) Normal (Negative); Leukocyte Negative Leu/uL (Negative); Nitrite Negative (Negative); Protein, Urine (Dipstick) Negative (Neg-Trace); RBC/HPF 0-3 HPF (0-3); WBC/HPF 0-3 HPF (0-3)
[2019-11-05] MEDS: Furosemide 40 MG/4 ML VIAL SLOW IVP SCH ×2 (05:18→15:43)
[2019-11-05] MEDS: Nitroglycerin 2% Ointment 1 INCH/1 GM Packet TOP SCH ×3 (05:18→20:50)
[2019-11-05] MEDS: Carvedilol 6.25 MG TAB PO SCH ×2 (07:59→17:03)
[2019-11-05] MEDS: Famotidine 20 MG TAB PO SCH ×2 (07:59→20:50)
[2019-11-05] MEDS: Aspirin 81 mg Enteric Coated Tablet PO SCH (07:59)
[2019-11-05] MEDS: Gabapentin 100 MG CAP PO SCH ×2 (08:00→20:49)
[2019-11-05] MEDS: Acetaminophen/Codeine 30-300mg Tablet PO PRN (09:30)
[2019-11-05] MEDS ORDERED: Morphine 2 MG/ML SYRINGE SLOW IVP SCH (09:45)
--- NOTE | 2019-11-05 13:21 | PDOC.HOSPP ---
- Subjective Encounter Date: 11/05/19 Encounter Time: 13:19 Subjective: Ms. Smallwood was seen today in follow-up of CHF exacerbation. She does not have any new complaints. She is breathing better. - Objective Vital Signs & Weight: Vital Signs (12 hours) Temp Pulse Resp BP BP Pulse Ox 11/05/19 10:45 97.9 F 62 20 112/52 L 92 L 11/05/19 07:59 120/55 L 11/05/19 07:54 97.5 F L 60 16 120/55 L 96 11/05/19 03:24 98.7 F 57 L 18 125/58 L 98 Weight Admit Weight 184 lb 8 oz Weight 186 lb 1.6 oz I&O: 11/04/19 11/05/19 11/06/19 06:59 06:59 06:59 Intake Total 100 300 Output Total 300 550 Balance -200 -250 Result Diagrams: 11/03/19 15:01 11/04/19 04:24 Additional Labs: Accuchecks 11/05/19 11/05/19 11/04/19 10:46 05:37 20:05 POC Glucose 103 128 H 170 H 11/04/19 16:47 POC Glucose 179 H Hospitalist ROS - Medication Medications: Active Medications Generic Name Dose Route Start Last Admin Trade Name Freq PRN Reason Stop Dose Admin Acetaminophen/Codeine Phosphate 1 tab 11/03/19 22:13 11/05/19 09:30 Tylenol #3 PO 1 tab Q4H PRN Administration Moderate Pain (4-6) Aspirin 81 mg 11/04/19 09:00 11/05/19 07:59 Ecotrin PO 81 mg DAILY MICHAEL Administration Atorvastatin Calcium 40 mg 11/04/19 21:00 11/04/19 20:02 Lipitor PO 40 mg HS MICHAEL Administration Carvedilol 6.25 mg 11/04/19 08:00 11/05/19 07:59 Coreg PO 6.25 mg BID-WM MICHAEL Administration Ezetimibe 10 mg 11/04/19 21:00 11/04/19 20:02 Zetia PO 10 mg HS MICHAEL Administration Famotidine 20 mg 11/03/19 21:00 11/05/19 07:59 Pepcid PO 20 mg BID MICHAEL Administration Furosemide 40 mg 11/04/19 06:00 11/05/19 05:18 Lasix SLOW IVP 40 mg 0600,1400 MICHAEL Administration Gabapentin 200 mg 11/04/19 09:00 11/05/19 08:00 Neurontin PO 200 mg BID MICHAEL Administration Insulin Glargine 15 units/ 0.15 mls @ 0 mls/hr 11/04/19 21:00 11/04/19 20:03 Miscellaneous Medication SC 0.15 mls HS MICHAEL Administration Nitroglycerin 0.5 inch 11/03/19 22:00 11/05/19 05:18 Nitro-Bid 2% Ointment TOP 0.5 inch Q8HR MICHAEL Administration - Exam Eye: PERRL, anicteric sclera Heart: RRR, no murmur, no gallops, no rubs, normal peripheral pulses Respiratory: CTAB (with the exception of occasional rales at the bases), no wheezes, no ronchi, normal chest expansion Gastrointestinal: soft, non-tender, non-distended, normal bowel sounds Extremities: no cyanosis, 1+ LE edema (wound vac i n place on the right stump) Hosp A/P (1) Acute on chronic combined systolic and diastolic ACC/AHA stage C congestive heart failure Code(s): I50.43 - ACUTE ON CHRONIC COMBINED SYSTOLIC AND DIASTOLIC HRT FAIL Status: Acute (2) HTN (hypertension) Code(s): I10 - ESSENTIAL (PRIMARY) HYPERTENSION Status: Chronic (3) CAD (coronary artery disease) Code(s): I25.10 - ATHSCL HEART DISEASE OF [place] CORONARY ARTERY W/O ANG PCTRS Status: Chronic Qualifiers: Coronary Disease-Associated Artery/Lesion type: bypass graft (4) DMII (diabetes mellitus, type 2) Status: Chronic Qualifiers: Diabetes mellitus long term care phlebotomist insulin use: with snf use - Plan * Acute on chronic systolic heart failure exacerbation- improving with IV Lasix * agree with BMP in the AM * Continue Carvediolol * Patient had a wound vac placed on the BKA stump, and several raheem removed * DM- blood glucose is stable- will re-start Lantus, and titrate up to her home dose as tolerated * HTN- blood pressure is stable * Anticipate home soon * UTI- on Bactrim
--- NOTE | 2019-11-05 13:42 | CON ---
DATE OF CONSULTATION: REASON FOR CONSULTATION: Chest pain. Dr. Destinee More is the primary ground operations superintendent. HISTORY OF PRESENT ILLNESS: Ms. Smallwood is a 74-year-old woman, who recently presented with chest pressure. This lasted for 30 minutes. She is currently chest pain free. No ameliorating, exacerbating, or precipitating factors present. She currently appears to be resting comfortably. Her recent labs suggested a mild increase in troponin of 0.14. Also has a creatinine 1.39 with a GFR of 45. PAST MEDICAL HISTORY: 1. Severe CAD, not felt to be amenable to percutaneous intervention. 2. Severe PVD, status post amputation, acid reflux, diabetes mellitus, previous left-sided iliac occlusion, renal artery stenosis, hyperlipidemia, hypertension, CAD as above, bilateral subclavian artery stenosis, status post stent placement, BTL, carotid endarterectomy, AICD placement. FAMILY HISTORY: [place]. SOCIAL HISTORY: No current tobacco or alcohol use. ALLERGIES: PENICILLIN. REVIEW OF SYSTEMS: A 10-point review of systems is reviewed as above, otherwise negative. HOME MEDICATIONS: 1. Carvedilol. 2. Nitroglycerin. 3. Potassium. 4. Zetia. 5. Hydrocodone. 6. Lasix. 7. Levemir. 8. NovoLog. 9. Atorvastatin. 10. Entresto. 11. Plavix. 12. Aspirin. 13. Lisinopril. PHYSICAL EXAMINATION: GENERAL: Patient is a pleasant female, who is in no acute distress. The patient appears their stated age. VITAL SIGNS: Blood pressure 117/53, pulse 59, temperature afebrile. NEUROLOGIC: The patient is alert and oriented x3 with no focal neurologic deficits. HEENT: Sclerae without icterus. Mouth has moist mucous membranes with normal pallor. NECK: No JVD. Carotid upstroke brisk. No bruits bilaterally. LUNGS: Clear to auscultation with unlabored respirations. BACK: No scoliosis or kyphosis. CARDIAC: Regular rate and rhythm with normal S1 and S2. No S3 or S4 noted. No significant rubs, murmurs, thrills, or gallops noted throughout the precordium. PMI is not displaced. There is no parasternal heave. ABDOMEN: Soft, nontender, nondistended. No peritoneal signs present. No hepatosplenomegaly. No abnormal striae. EXTREMITIES: Left BKA. SKIN: No gross abnormalities. PERTINENT LABORATORY DATA: As described above. IMPRESSION: 1. Chest pain. 2. Severe coronary artery disease. 3. Status post bypass surgery. 4. Severe peripheral vascular disease. 5. Renal insufficiency. RECOMMENDATIONS: The patient has been seen and evaluated by Dr. Destinee More in the past. She is not felt to be an appropriate surgical candidate or PCI candidate. We will recommend medical therapy. She does not appear to be on long-acting nitroglycerin. We will consider isosorbide 30 mg one p.o. q.a.m. We will also consider Ranexa if the symptoms continue. Job ID: [id number]
--- NOTE | 2019-11-05 14:28 | PDOC.HOSPP ---
- Subjective Encounter Date: 11/05/19 Encounter Time: 12:15 Subjective: Ms Smallwood is seen as a follow up for CHF exacerbation. She states she is feeling wonderful and breathing well. No overnight events or concerns. - Objective Vital Signs & Weight: Vital Signs (12 hours) Temp Pulse Resp BP BP Pulse Ox 11/05/19 10:45 97.9 F 62 20 112/52 L 92 L 11/05/19 07:59 120/55 L 11/05/19 07:54 97.5 F L 60 16 120/55 L 96 11/05/19 03:24 98.7 F 57 L 18 125/58 L 98 Weight Admit Weight 184 lb 8 oz Weight 186 lb 1.6 oz I&O: 11/04/19 11/05/19 11/06/19 06:59 06:59 06:59 Intake Total 100 300 Output Total 300 550 Balance -200 -250 Result Diagrams: 11/03/19 15:01 11/04/19 04:24 Additional Labs: Accuchecks 11/05/19 11/05/19 11/04/19 10:46 05:37 20:05 POC Glucose 103 128 H 170 H 11/04/19 16:47 POC Glucose 179 H Hospitalist ROS - Medication Medications: Active Medications Generic Name Dose Route Start Last Admin Trade Name Freq PRN Reason Stop Dose Admin Acetaminophen/Codeine Phosphate 1 tab 11/03/19 22:13 11/05/19 09:30 Tylenol #3 PO 1 tab Q4H PRN Administration Moderate Pain (4-6) Aspirin 81 mg 11/04/19 09:00 11/05/19 07:59 Ecotrin PO 81 mg DAILY MICHAEL Administration Atorvastatin Calcium 40 mg 11/04/19 21:00 11/04/19 20:02 Lipitor PO 40 mg HS MICHAEL Administration Carvedilol 6.25 mg 11/04/19 08:00 11/05/19 07:59 Coreg PO 6.25 mg BID-WM MICHAEL Administration Ezetimibe 10 mg 11/04/19 21:00 11/04/19 20:02 Zetia PO 10 mg HS MICHAEL Administration Famotidine 20 mg 11/03/19 21:00 11/05/19 07:59 Pepcid PO 20 mg BID MICHAEL Administration Furosemide 40 mg 11/04/19 06:00 11/05/19 05:18 Lasix SLOW IVP 40 mg 0600,1400 MICHAEL Administration Gabapentin 200 mg 11/04/19 09:00 11/05/19 08:00 Neurontin PO 200 mg BID MICHAEL Administration Insulin Glargine 15 units/ 0.15 mls @ 0 mls/hr 11/04/19 21:00 11/04/19 20:03 Miscellaneous Medication SC 0.15 mls HS MICHAEL Administration Nitroglycerin 0.5 inch 11/03/19 22:00 11/05/19 05:18 Nitro-Bid 2% Ointment TOP 0.5 inch Q8HR MICHAEL Administration - Exam General Appearance: NAD, awake alert ENT: normocephalic atraumatic, moist mucosa Neck: supple, symmetric, no lymphadenopathy Heart: RRR, no murmur, no gallops, no rubs Respiratory: CTAB, normal chest expansion Gastrointestinal: soft, non-tender, non-distended, normal bowel sounds Extremities - other findings: wound vac to L BKA site Psychiatric: normal affect, normal behavior Hosp A/P (1) Acute on chronic heart failure Code(s): I50.9 - HEART FAILURE, UNSPECIFIED Status: Acute (2) UTI (urinary tract infection) Status: Acute (3) Chest pain Code(s): R07.9 - CHEST PAIN, UNSPECIFIED Status: Acute (4) HTN (hypertension) Code(s): I10 - ESSENTIAL (PRIMARY) HYPERTENSION Status: Chronic (5) DMII (diabetes mellitus, type 2) Status: Chronic Qualifiers: Diabetes mellitus ad terminal makeup operator insulin use: with ad terminal makeup operator use - Plan Acute on chronic heart failure: contine IV lasix to diurese, tele monitor, BMP ordered in am Chest pain: resolved, elevated troponin, cardiology following patient DM II: stable HTN: stable UTI: Bactrim started, await urine culture results WCT following patient- wound vac placed to BKA site this morning after some raheem removed, 4 raheem remain in stump
[2019-11-05] MEDS: Ezetimibe 10 MG TAB PO SCH (20:48)
[2019-11-05] MEDS: Sulfameth/Trimethoprim DS 800-160mg TAB PO SCH (20:49)
[2019-11-05] MEDS: Atorvastatin Calcium 40 MG TAB PO SCH (20:49)
[2019-11-05] MEDS: Insulin Glargine 15 UNITS in Pre-Filled Syringe 1 EACH SC SCH (20:50)
[2019-11-06 05:04] LABS: Anion Gap 13 mmol/L (10-20); BUN (Urea Nitrogen) 27 mg/dL (9.8-20.1); Calc. Creatinine Clearance 53 mL/min (70-130); Calcium 8.9 mg/dL (7.8-10.44); Carbon Dioxide 28 mmol/L (23-31); Chloride 102 mmol/L (98-107); Estimated GFR-MDRD 50; Potassium 3.9 mmol/L (3.5-5.1); Sodium 139 mmol/L (136-145)
[2019-11-06 05:09] LABS: Glucose 35 mg/dL (83-110)
[2019-11-06] MEDS: Furosemide 40 MG/4 ML VIAL SLOW IVP SCH ×2 (05:16→16:15)
[2019-11-06] MEDS: Nitroglycerin 2% Ointment 1 INCH/1 GM Packet TOP SCH ×2 (05:17→16:15)
--- NOTE | 2019-11-06 08:29 | PDOC.CPN ---
- Subjective Date: 11/06/19 Time: 08:39 Interval history: The pt seen and examined. No overnight events. No cardiac complaints. She stated she does not have any CP since diuretic was resumed (her diuretics were held while she was in rehab due to hypotesive and KB on CKD per the pt) - Objective Allergies/Adverse Reactions: Allergies Allergy/AdvReac Type Severity Reaction Status Date / Time tramadol Allergy Intermediate Nausea Verified 11/03/19 19:38 Penicillins Allergy Rash Verified 11/03/19 19:38 Visit Medications: Current Medications Acetaminophen (Tylenol) 650 mg PO Q4H PRN PRN Reason: Headache/Fever/Mild Pain (1-3) Acetaminophen/Codeine Phosphate (Tylenol #3) 1 tab PO Q4H PRN PRN Reason: Moderate Pain (4-6) Last Admin: 11/05/19 09:30 Dose: 1 tab Aspirin (Ecotrin) 81 mg PO DAILY [facility] Last Admin: 11/05/19 07:59 Dose: 81 mg Atorvastatin Calcium (Lipitor) 40 mg PO HS [facility] Last Admin: 11/05/19 20:49 Dose: 40 mg Carvedilol (Coreg) 6.25 mg PO BID-WM [facility] Last Admin: 11/05/19 17:03 Dose: 6.25 mg Dextrose/Water (Dextrose 50%) 25 gm SLOW IVP PRN PRN PRN Reason: Hypoglycemia Ezetimibe (Zetia) 10 mg PO HS [facility] Last Admin: 11/05/19 20:48 Dose: 10 mg Famotidine (Pepcid) 20 mg PO BID [facility] Last Admin: 11/05/19 20:50 Dose: 20 mg Furosemide (Lasix) 40 mg SLOW IVP 0600,1400 [facility] Last Admin: 11/06/19 05:16 Dose: 40 mg Gabapentin (Neurontin) 200 mg PO BID [facility] Last Admin: 11/05/19 20:49 Dose: 200 mg Glucagon (Glucagon) 1 mg IM PRN PRN PRN Reason: Hypoglycemia Hydralazine HCl (Apresoline) 10 mg SLOW IVP Q4H PRN PRN Reason: SBP > 180 and HR < 70 Dextrose/Water (D5w) 1,000 mls @ 0 mls/hr IV .Q0M PRN PRN Reason: Hypoglycemia Insulin Glargine 15 units/ (Miscellaneous Medication) 0.15 mls @ 0 mls/hr SC HS [facility] Last Admin: 11/05/19 20:50 Dose: 0.15 mls Insulin Human Lispro (Humalog) 0 units SC .MODERATE SLIDING SC PRN PRN Reason: Moderate Correctional Scale Insulin Human Lispro (Humalog) 0 units SC .BEDTIME SLIDING SC PRN PRN Reason: Bedtime Correctional Scale Labetalol HCl (Normodyne) 20 mg SLOW IVP Q4H PRN PRN Reason: SBP > 180 and HR >/= 70 Nitroglycerin (Nitro-Bid 2% Ointment) 0.5 inch TOP Q8HR [facility] Last Admin: 11/06/19 05:17 Dose: 0.5 inch Nitroglycerin (Nitrostat) 0.4 mg PO Q5MIN PRN PRN Reason: Chest Pain Ondansetron HCl (Zofran Odt) 4 mg PO Q6H PRN PRN Reason: Nausea/Vomiting Ondansetron HCl (Zofran) 4 mg IVP Q6H PRN PRN Reason: Nausea/Vomiting Trimethoprim/Sulfamethoxazole (Bactrim Ds) 1 tab PO BID [facility] Stop: 11/10/19 21:01 Last Admin: 11/05/19 20:49 Dose: 1 tab Vital Signs & Weight: Vital Signs Temp Pulse Resp BP Pulse Ox 11/06/19 07:46 98.2 F 58 L 16 134/59 L 100 11/06/19 03:45 97.7 F 54 L 16 113/56 L 96 11/05/19 20:40 98.7 F 53 L 18 118/70 98 Admit Weight 184 lb 8 oz Weight 186 lb 14.4 oz - Physical Exam General: alert & oriented x3 HEENT: mucus membranes moist Neck: supple neck Cardiac: regular rate and rhythm, S1/S2 Lungs: decreased breath sounds Neuro: cranial nerve 2-12 intact Extremities: no edema, other: (Rt BKA with wound Vac) Musculoskeletal: normal range of motion - Labs Result Diagrams: 11/03/19 15:01 11/06/19 04:30 Troponin/CKMB CK-MB (CK-2) 2.0 ng/mL (0-6.6) 11/03/19 15:01 Troponin I 0.149 ng/mL (< 0.028) H 11/03/19 21:22 - Telemetry Sinus rhythms and dysrhythmias: sinus rhythm - Assessment/Plan Assessment/Plan: 1. Acute on chronic combined HF exacerbation with EF 20-25% and grade III dd in 07/2019 - stable with RA; on Lasix 40mg IV BID and Coreg; Entresto has been on hold since she was in rehab due to hypotenstion, renal insuff.; will request Dr ibrahim's consult 2. PVD (with bilat subclavian stent in 2017, BMS to Rt distal common prox and externa iliac artery in 09/2018 and s/p Rt Fem suprageniculate popliteal artery bypass in 09/2018) and with hx of Rt BKA in 09/2019 - Wound vac to Rt BKA; No Plavix for unknown reason (possible due to anemia?) 3. Ischemic CMY with hx of AICD in 2017 - she may need an upgrade to a bi-V device. 4. KB on CKD - unchanged 5. Severe CAD with s/p CABG x 4 in 2003 - Not felt to be a candidate for further intervention or surgery.on Coreg, ASA and Statin 6. HTN - hypotensive; 7. HLD - on Statin 8. DM type 2 9. Hx of Lt in 2015 10. mod-severe with RAMON 1.1cm in 07/2019 MAR reviewed Pt. seen and eval. by me. I agree with the A/P by the LACER AND TIER. This is a difficult situation for the pt. She was on entresto and the BNP may be exaggerated due to this. She does have a severe decrease in EF and may need inotropic supprt. will ask Dr. Ibrahim to visit with the pt. Chest clear at this time. RRR. trace edema.
[2019-11-06] MEDS: Sulfameth/Trimethoprim DS 800-160mg TAB PO SCH ×2 (09:29→21:06)
[2019-11-06] MEDS: Carvedilol 6.25 MG TAB PO SCH ×2 (09:29→18:41)
[2019-11-06] MEDS: Famotidine 20 MG TAB PO SCH ×2 (09:29→21:06)
[2019-11-06] MEDS: Gabapentin 100 MG CAP PO SCH ×2 (09:29→21:05)
[2019-11-06] MEDS: Aspirin 81 mg Enteric Coated Tablet PO SCH (09:30)
--- NOTE | 2019-11-06 12:05 | PDOC.HOSPP ---
- Subjective Encounter Date: 11/06/19 Encounter Time: 10:45 Subjective: Ms Smallwood was seen for a followup today for CHF exacerbation. She states she is feeling great today with no chest pain or shortness of breath. She did have a low blood sugar through the night of 35 which she was asymptomatic during, she was able to recover after having some crackers and juice. No other concerns noted. - Objective Vital Signs & Weight: Vital Signs (12 hours) Temp Pulse Resp BP Pulse Ox 11/06/19 11:00 98.0 F 55 L 18 118/59 L 99 11/06/19 10:44 100 11/06/19 07:46 98.2 F 58 L 16 134/59 L 100 11/06/19 03:45 97.7 F 54 L 16 113/56 L 96 Weight Admit Weight 184 lb 8 oz Weight 186 lb 14.4 oz I&O: 11/05/19 11/06/19 11/07/19 06:59 06:59 06:59 Intake Total 300 980 Output Total 550 1550 Balance -250 -570 Result Diagrams: 11/03/19 15:01 11/06/19 04:30 Additional Labs: Accuchecks 11/06/19 11/06/19 11/06/19 10:43 05:52 05:17 POC Glucose 107 70 43 L* 11/05/19 11/05/19 20:11 16:55 POC Glucose 149 H 130 H Hospitalist ROS - Medication Medications: Active Medications Generic Name Dose Route Start Last Admin Trade Name Freq PRN Reason Stop Dose Admin Acetaminophen/Codeine Phosphate 1 tab 11/03/19 22:13 11/05/19 09:30 Tylenol #3 PO 1 tab Q4H PRN Administration Moderate Pain (4-6) Aspirin 81 mg 11/04/19 09:00 11/06/19 09:30 Ecotrin PO 81 mg DAILY MICHAEL Administration Atorvastatin Calcium 40 mg 11/04/19 21:00 11/05/19 20:49 Lipitor PO 40 mg HS MICHAEL Administration Carvedilol 6.25 mg 11/04/19 08:00 11/06/19 09:29 Coreg PO 6.25 mg BID-WM MICHAEL Administration Ezetimibe 10 mg 11/04/19 21:00 11/05/19 20:48 Zetia PO 10 mg HS MICHAEL Administration Famotidine 20 mg 11/03/19 21:00 11/06/19 09:29 Pepcid PO 20 mg BID MICHAEL Administration Furosemide 40 mg 11/04/19 06:00 11/06/19 05:16 Lasix SLOW IVP 40 mg 0600,1400 MICHAEL Administration Gabapentin 200 mg 11/04/19 09:00 11/06/19 09:29 Neurontin PO 200 mg BID MICHAEL Administration Insulin Glargine 15 units/ 0.15 mls @ 0 mls/hr 11/04/19 21:00 11/05/19 20:50 Miscellaneous Medication SC 0.15 mls HS MICHAEL Administration Nitroglycerin 0.5 inch 11/03/19 22:00 11/06/19 05:17 Nitro-Bid 2% Ointment TOP 0.5 inch Q8HR MICHAEL Administration Trimethoprim/Sulfamethoxazole 1 tab 11/05/19 21:00 11/06/19 09:29 Bactrim Ds PO 11/10/19 21:01 1 tab BID MICHAEL Administration - Exam General Appearance: NAD, awake alert Eye: PERRL, anicteric sclera ENT: normocephalic atraumatic, moist mucosa Neck: supple, symmetric, no lymphadenopathy Heart: RRR, no murmur, no gallops, no rubs Respiratory: CTAB, no wheezes, no rales, no ronchi Gastrointestinal: soft, non-tender, non-distended, normal bowel sounds Extremities - other findings: R BKA with wound vac Psychiatric: normal affect, normal behavior Hosp A/P (1) Acute on chronic heart failure Code(s): I50.9 - HEART FAILURE, UNSPECIFIED Status: Acute (2) UTI (urinary tract infection) Status: Acute (3) Chest pain Code(s): R07.9 - CHEST PAIN, UNSPECIFIED Status: Acute (4) HTN (hypertension) Code(s): I10 - ESSENTIAL (PRIMARY) HYPERTENSION Status: Chronic (5) DMII (diabetes mellitus, type 2) Status: Chronic Qualifiers: Diabetes mellitus longwall headgate operator insulin use: with longwall headgate operator use - Plan Acute on chronic heart failure: contine IV lasix to diurese, tele monitor Chest pain: resolved, elevated troponin, cardiology following patient DM II: glucose was 35 this am, patient did not eat evening snack and only 25-50 % of dinner the previous evening, encouraged her to stay consistent with her eating to help avoid future hypoglycemic episodes HTN: stable UTI: Bactrim started, awaiting urine culture results, states the discomfort is gone when urinating WCT following patient- wound vac placed to BKA site yesterday after some raheem removed, 4 raheem remain in stump, has not needed pain medication since previous morning
--- NOTE | 2019-11-06 16:17 | PDOC.EVN ---
Event Note - Event Note Event Note: Ms. Smallwood was seen and examined and discussed with Devi Fall NP. today in follow-up of CHF exaberbation. She says she feels great. She does not have any complaints other than the raheem on her wound sting off and on. Onexam her lungs are clear, no wheezing or rales, and she has 1+ edema in the left lower extremity. Continue Diuresis with Lasix, and Cardiology has asked EP to evaluate Ms. Smallwood.
[2019-11-06] MEDS ORDERED: Isosorbide Mononitrate (ER) 30 MG TAB PO SCH (20:15)
[2019-11-06] MEDS ORDERED: hydrALAZINE 10 MG TAB PO SCH (20:15)
--- NOTE | 2019-11-06 20:51 | CON ---
DATE OF CONSULTATION: 11/06/2019 SERVICE: Advanced Heart Failure Cardiology Consulting Service. REASON FOR CONSULTATION: Management of acute on chronic severe heart failure with reduced ejection fraction. HISTORY OF PRESENT ILLNESS: Ms. Carmen Smallwood, 74-year-old female with known ischemic cardiomyopathy, ejection fraction about 15%, was admitted for acute on chronic heart failure with reduced ejection fraction with both systolic and diastolic dysfunctions. Her heart trouble began in 2002 when she suffered a myocardial infarction. She received an urgent coronary artery bypass with grafts of HACKTET to LAD, SVG to OM, and also SVG to RCA. Apparently, she did well for a while. She was able to go back to work. However, she went into heart failure in about 2018 time frame. She required hospitalization. She also required diuresis. A coronary angiogram was done in 2015. It showed that she had severe coronary artery disease that cannot really be revascularized. So she was suffering from ischemic cardiomyopathy. She also had severe peripheral vascular disease. In September 2019 , she received a right [id number] amputation due to severe peripheral artery disease and infection. She was discharged to rehabilitation. Apparently, at rehabilitation, someone said that her blood pressure was too low or that she had elevation of BUN and creatinine. So, her heart failure medication and also diuretics were stopped. As outpatient, she was on carvedilol, Entresto twice a day and torsemide 20 daily at one time. She said her dry weight was about 160 pounds. After discharge from the rehabilitation center, she said her weight was about 184 pounds, which is up 24 pounds. She says she did not feel good when she came home. She needed to sleep at 45 degrees angle or higher. She fell edematous from feet to leg to abdomen to arm to face. She also had PND every night. She will wake up 2 or 3 times a night, needed to sit up and she will be feeling short of breath and need to breathe. She was discharged from rehabilitation on October 29 and all the above edema occurred some during the rehabilitation and more during at home. She did call for help. [facility] first contacted rehabilitation. Some cardiac medications were started, but she cannot really recall which one. Apparently diuretics was really not started and then [facility] attempted to contact Dr. Tineo, a surgeon, who did the BKA. Dr. Tineo was not able to be reachedl. Then on Tuesday, she developed pressure chest pain, first episodically, then became persistent. She also felt severely short of breath and then she was brought to [facility]. She was found to be in heart failure and she was given Lasix 80 IV and then she felt better with diuresis throughout the hospitalization stay. PAST MEDICAL HISTORY: 1. Coronary artery disease with coronary artery bypass done in 2002 with HACKETT to LAD, SVG to OM, and also SVG to RCA. a. Catheterization in 2016 reported that her SVG to RCA graft was 100% occluded. The SVG to OM2 graft was 80% occluded. HACKETT to LAD graft was not accessed due to atherosclerosis in the subclavian artery. Her [place] left main only have 10% occlusion. Her mid LAD was 80% occluded and her [place] RCA was 100% occluded. b. Her echocardiogram was done on June 28, 2018. By my reading, her LVIDD was 6.5 cm, LVEF is 15%. She had at least moderate aortic regurgitation and sclerotic aortic valve with aortic stenosis. She had moderately dilated right ventricle. However, she had moderate to severely depressed right ventricular function with severe tricuspid regurgitation with pressure gradient across tricuspid valve of 47 mmHg. 2. She has severe peripheral vascular disease that resulted in right BKA. She has stenosis at both SMA and KARLI. 3. She has bilateral renal artery stenosis. 4. Hypertension. 5. Hyperlipidemia. 6. Diabetes. SOCIAL HISTORY: 1. She smoked in the past, but stopped in . 2. She denies alcohol use. 3. She denies illicit drug use. 4. She currently lives with three brothers. FAMILY HISTORY: Her father of hypertension at age 72. Her mother of heart failure at age 86. She has two sons, one of whom of meningitis at age 16 and another one of diabetes at age 41. She lost both of her sons. MEDICATIONS: Her current cardiac medications include; 1. Carvedilol 6.25 mg twice a day. 2. Aspirin 81 mg daily. 3. Lasix 40 mg IV twice a day. 4. Atorvastatin 40 mg at bedtime. 5. Nitroglycerin paste 0.5 inches. 6. Zetia 10 mg daily. REVIEW OF SYSTEMS: GENERAL: She denies fever, chills, or productive cough. HEENT: There is no change in vision, hearing, or swallowing. PULMONARY: She was short of breath, but now she is breathing easier. CARDIAC: She is currently chest pain free. There is no syncope. GI: There is no complaint. : She says she is urinating alright. MUSCULOSKELETAL: She currently does not complain of joint pains. INTEGUMENT: She does not complain of "skin breakdown." NEUROLOGIC: She is not complaining of new focal deficits or weaknesses. PSYCHIATRIC: She is currently not depressed. PHYSICAL EXAMINATION: VITAL SIGNS: Telemetry was reviewed, mostly sinus rhythm with relative bradycardia. She does have some short runs of tachycardia, some are wide complex of variable rate, could be atrial fibrillation with aberrancy. There are others that are mostly irregular, so she could have short runs of atrial fibrillation. Her current vital signs are heart rate 54, blood pressure 126/56. GENERAL: She is alert, conversational, sitting up comfortably in bed. HEENT: Showed EOMI. Oropharynx benign with dentures with moist mucosa. NECK: She has elevated JVP all the way up to the earlobe. PULMONARY: There is good air movement bilaterally. There are slight crackles bilaterally, but not much. CARDIAC: Mostly bradycardia, but regular rate and rhythm. There is 2/6 holosystolic murmur at the apex with radiation to the left axilla. There is a significant 2/6 diastolic murmur at the right sternal border. There is also 2/6 crescendo-decrescendo murmur at the right upper sternal border. She has murmurs of mitral regurgitation, aortic regurgitation, and also aortic stenosis. There are no discernible gallops. ABDOMEN: Soft, nontender. Positive bowel sounds. Does have fluid waves. EXTREMITIES: Her right leg is wrapped in bandage from right BKA. Her left leg , she has 0.5 cm pitting edema from her left foot to about 2/[address] toward her knee. LABORATORY VALUES: Her laboratory value from today shows sodium 139, potassium 3.9, BUN 27, creatinine 1.27. She had a low blood glucose, but currently was supplemented. Her admission brain natriuretic peptide level was 7831. PROCEDURE Her AICD was interrogated at the procedure. - It is a [employer] AF VR [id number] with serial number of [id number]. - It has a single right ventricular lead. - There were no recordings of detected ventricular tachycardia or ventricular fibrillation. There is no recorded SVTs, but cannot really say it is SVT or not. - The histogram shows that her heart rate is in the 40s about 15% of time. - She is V-sensed 99% of time and V-paced 1% of time. ASSESSMENT: 74-year-old lady, resides in [place] Heart Association stage C, also [place] Heart Association class 3B heart failure with reduced ejection fraction. This is due to ischemic cardiomyopathy. She has both systolic and diastolic dysfunctions. She is still volume overloaded, but not terribly so. Her bradycardia could be an underlying cause of her problems. She may have sick sinus syndrome (periods of bradycardia with episodes of AFIB tachycardia). Episodes of bradycardia may have contributed to her recent symptoms. Bradycardia causing poor coronary perfusion can trigger chest pain, nausea, and ill feeling. She could benefit from either an atrial lead, so she could be A-paced or biventricularly paced - this would be better. With bi-V pacing will allow her to have a higher dose of carvedilol. She was reported to have bilateral renal artery stenosis. Consequently, we can not really use Entresto on her due to the renal artery stenosis. She will really need her carvedilol and combination of hydralazine and nitrates. For now, Lasix 40 mg IV b.i.d. seem to be adequate. In the near future, we will need to turn back to oral diuretics. If her renal function decreases, then we will need to consider temporary milrinone to make sure that she has sustained cardiac output. Please see the following for my recommendations. RECOMMENDATIONS: 1. Please consult Dr. Clements, Electrophysiology for upgrade to her AICD. 2. Start isosorbide mononitrate 30 mg p.o. daily, but take off the nitroglycerin paste first. 3. Start hydralazine at 10 mg p.o. q.8 hours. 4. Increase atorvastatin to 80 mg p.o. at bedtime. 5. Supplement magnesium 400 mg p.o. b.i.d. 6. For tomorrow's morning labs, please give CBC, CMP, magnesium, BNP. 7. Please do a renal ultrasound to document her functional severity of renal artery stenosis. 8. I understand echocardiogram has been ordered. Please do dyssynchrony study with the echocardiogram, so that would help us in deciding if DESKTOP PUBLISHING OPERATOR-D is possible or beneficial. It has been a pleasure taking care of Ms. Carmen Smallwood. If you any questions, please give me a call. Job ID: [id number] MTDD
[2019-11-06] MEDS: Ezetimibe 10 MG TAB PO SCH (21:05)
[2019-11-06] MEDS: Atorvastatin Calcium 40 MG TAB PO SCH (21:05)
[2019-11-06] MEDS: Magnesium Oxide 400 MG TAB PO SCH (21:06)
[2019-11-06] MEDS: Insulin Glargine 15 UNITS in Pre-Filled Syringe 1 EACH SC SCH (21:08)
[2019-11-07 05:16] LABS: #Lymphocytes 0.8 thou/uL (1.20-3.40); #Monocytes 0.4 thou/uL (0.11-0.59); #Neutrophils 2.4 thou/uL (1.40-6.50); %Basophils 0.2 % (0.0-1.0); %Eosinophils 0.7 % (0.0-10.0); %Lymphocytes 20.8 % (21.0-51.0); %Neutrophils 66.3 % (42.0-75.0); Hemoglobin 8.3 g/dL (12.0-16.0); Mean Corpuscular HGB CONC 31.1 g/dL (32.0-36.0); Mean Corpuscular Hemoglobin 31.6 pg (27.0-31.0); Mean Platelet Volume 9.1 fL (7.4-10.4); Platelet Count 133 thou/uL (130-400); RBC Distribution Width 14.1 % (11.5-14.5); Red Blood Cell (RBC) Count 2.64 mill/uL (4.20-5.40); White Blood Cell (WBC) Count 3.7 thou/uL (4.8-10.8)
[2019-11-07 05:31] LABS: Anion Gap 10 mmol/L (10-20); BUN (Urea Nitrogen) 22 mg/dL (9.8-20.1); Calc. Creatinine Clearance 51 mL/min (70-130); Calcium 8.6 mg/dL (7.8-10.44); Carbon Dioxide 31 mmol/L (23-31); Chloride 99 mmol/L (98-107); Estimated GFR-MDRD 48; Glucose 130 mg/dL (83-110); Potassium 3.8 mmol/L (3.5-5.1); Sodium 136 mmol/L (136-145)
[2019-11-07] MEDS: hydrALAZINE 10 MG TAB PO SCH ×3 (05:48→21:16)
[2019-11-07] MEDS: Furosemide 40 MG/4 ML VIAL SLOW IVP SCH ×2 (05:48→14:54)
[2019-11-07] MEDS: Isosorbide Mononitrate (ER) 30 MG TAB PO SCH (08:55)
[2019-11-07] MEDS: Sulfameth/Trimethoprim DS 800-160mg TAB PO SCH ×2 (08:55→19:58)
[2019-11-07] MEDS: Famotidine 20 MG TAB PO SCH ×2 (08:55→19:58)
[2019-11-07] MEDS: Gabapentin 100 MG CAP PO SCH ×2 (08:55→19:59)
[2019-11-07] MEDS: Aspirin 81 mg Enteric Coated Tablet PO SCH (08:55)
[2019-11-07] MEDS: Carvedilol 6.25 MG TAB PO SCH ×2 (08:55→17:35)
[2019-11-07] MEDS: Magnesium Oxide 400 MG TAB PO SCH ×2 (08:55→19:59)
[2019-11-07] MEDS ORDERED: Gentamicin 80 MG/2 ML VIAL ONE (10:36)
[2019-11-07] MEDS ORDERED: Ketamine 50 MG/ML (10ML VIAL) ONE (11:04)
[2019-11-07] MEDS ORDERED: Midazolam HCl 2 mg/2 ml Vial ONE (11:04)
[2019-11-07] MEDS ORDERED: Clindamycin/D5W 600 mg/50 ml Premix Bag ONE (11:15)
--- NOTE | 2019-11-07 11:47 | ULT ---
RENAL ULTRASOUND: INDICATION: History of urgency and burning with urination. COMPARISON: Prior exam dated 07/28/2017. FINDINGS: The left kidney measures 10.3 x 4.9 x 5.1 cm. The 1.3 cm cortical cyst involving the left mid kidney is new. The previously seen left peripelvic cyst on the comparison examination is not definitely de monstrated on the current study. The right kidney measures 1.2 x 4.5 x 4.6 cm. No focal renal lesion or hydronephrosis is evident. The prevoid bladder volume was 738.3 cc. There are bilateral ureteral jets. IMPRESSION: 1. Left renal cortical cyst. 2. No hydronephrosis. 3. Prominent amount of retained urine within the bladder. POS: BH
[2019-11-07] MEDS ORDERED: Fentanyl 100 MCG/2 ML VIAL ONE (12:15)
[2019-11-07] MEDS ORDERED: Ondansetron HCl/PF 4 MG/2 ML Vial IVP PRN (13:01)
[2019-11-07] MEDS ORDERED: PROPOFOL 200 MG/20 ML VIAL ONE (13:04)
[2019-11-07] MEDS ORDERED: Iopamidol 370 76% 50 ML VIAL FS ONE (13:08)
[2019-11-07 13:10] VITALS: BMI 29.9
--- NOTE | 2019-11-07 13:29 | RAD ---
Exam: Chest one view HISTORY:Status post ICD generator placement Comparison: 02/25/2019, 11/03/2019 FINDINGS: Pacing device: Interval placement of a dual-lead left-sided defibrillator with lead positioned over t he right atrium and right ventricle. Cardiac silhouette:Cardiomegaly. Stable surgical clips and sternotomy wires. Stable vascular stents. Aorta: Atherosclerosis Pulmonary vessels: Normal Costophrenic angles: Left-sided pleural effusion LUNGS: Parenchymal changes left lung base. Pneumothorax: None Osseous abnormalities: None IMPRESSION: 1. No pneumothorax 2. Left-sided defibrillator as above 3. Cardiomegaly. Pleural and parenchymal changes left lung base. Correlate for possible congestive he art failure.
--- NOTE | 2019-11-07 14:01 | PRG ---
DATE OF SERVICE: 11/07/2019 This is an Advanced Heart Failure Cardiology Consulting Service. SUBJECTIVE: Ms. Smallwood had a very good day. She was able to rest well. She was able to urinate fine. She did not have as severe shortness of breath. Her breathing is easier. She has a net negative output. REVIEW OF SYSTEMS: GENERAL: There is no fever, chills, or productive cough. HEENT: There is no change in vision, hearing, or swallowing. PULMONARY: She is breathing easier. CARDIAC: There are no complaints of chest pain, palpitation, or syncope. GI: She is eating well. : She is able to urinate. MUSCULOSKELETAL: She does have a right BKA, but there are no other joint pains. INTEGUMENT: There is no complaint of new skin breakdown. NEUROLOGIC: There are no new focal deficits or weaknesses. MEDICATIONS: Her current cardiac medications include; 1. Carvedilol 6.25 mg twice per day. 2. Zetia 10 mg daily. 3. Hydralazine was started last night at 10 mg q.8 hours. 4. Atorvastatin has been changed to 80 mg at bedtime. 5. Lasix still at 40 mg IV twice per day. 6. Isosorbide mononitrate started this morning at 30 mg daily. 7. Aspirin 81 mg daily. Telemetry was reviewed. She has episodes of bradycardia. Other than that, there were no concerning arrhythmias at this point. PHYSICAL EXAMINATION: VITAL SIGNS: Heart rate 56, blood pressure 129/58. GENERAL: She is alert, conversational, sitting comfortably in bed. HEENT: EOMI. Oropharynx has moist mucosa. NECK: JVP is still kind of high about 12 cm. PULMONARY: She has good air movement bilateral, only very slight left basilar crackles at left base, it is improved CARDIAC: There is a 2/6 holosystolic murmur at the apex with radiation to the left axilla. There is a 2/6 diastolic murmur at the lower right sternal border. There is also almost 3/6 crescendo decrescendo murmur at right upper sternal border. So, she has murmurs of mitral regurgitation, aortic regurgitation, and also aortic stenosis. There are no discernible gallops. ABDOMEN: Soft, nontender. Positive bowel sounds. EXTREMITIES: Her lower extremity edema has decreased on the left. She has 0.5 cm pitting edema from her feet to about fdc toward her knees, but this is decreased. Her right BKA is still bandaged. LABORATORY DATA: Sodium 136, potassium 3.8, BUN 22, and creatinine 1.31 her BNP has decreased from over 7000 down to 4715. I understand from her and the nurses that Dr. Clements has came by and saw her. He believed an upgrade is a good idea. She is being tested for COVID-19. If her COVID-19 test is negative, they will upgrade her device. ASSESSMENT: 74-year-old lady resides in [place] Heart Association stage C and also [place] Heart Association Class 3 heart failure with reduced ejection fraction due to ischemic cardiomyopathy. She has both systolic and diastolic dysfunctions. She is still currently volume overloaded, but it is improving. As stated earlier and upgrade to her device can help. With the pacing in place, we can increase her carvedilol to be a much more effective dosage. Please see the following for my recommendations. RECOMMENDATIONS: 1. Agree with upgrade of AICD device. 2. We will continue to trial of isosorbide mononitrate and hydralazine today. 3. Continue with Lasix 40 mg IV b.i.d. Perhaps, tomorrow we might need to convert to torsemide 20 mg daily. It has been a pleasure taking care of Ms. Smallwood. If any question, please give me a call. Job ID: [id number] MTDD
--- NOTE | 2019-11-07 14:07 | PDOC.HOSPP ---
- Subjective Encounter Date: 11/07/19 Encounter Time: 10:30 Subjective: Ms Smallwood is seen today as a follow up for CHF exacerbation. Upon exam she is working with PT and has her brother by her side. She states she is feeling wonderful and she is going for an ICD upgrade shortly. She is tolerating the medication changes from Dr Ibrahim well. - Objective Vital Signs & Weight: Vital Signs (12 hours) Temp Pulse Resp BP Pulse Ox 11/07/19 08:55 96 11/07/19 08:46 98.1 F 63 16 129/58 L 96 11/07/19 06:51 93 L 11/07/19 03:50 98.7 F 61 12 110/53 L 93 L Weight Admit Weight 184 lb 8 oz Weight 174 lb 6 oz I&O: 11/06/19 11/07/19 11/08/19 06:59 06:59 06:59 Intake Total 980 480 Output Total 1550 1550 Balance -570 -1070 Result Diagrams: 11/07/19 04:58 11/07/19 04:58 Additional Labs: Accuchecks 11/07/19 11/06/19 11/06/19 06:00 20:33 17:20 POC Glucose 132 H 134 H 136 H Hospitalist ROS - Medication Medications: Active Medications Generic Name Dose Route Start Last Admin Trade Name Freq PRN Reason Stop Dose Admin Acetaminophen 650 mg 11/03/19 17:54 11/07/19 03:12 Tylenol PO 650 mg Q4H PRN Administration Headache/Fever/Mild Pain (1-3) Acetaminophen/Codeine Phosphate 1 tab 11/03/19 22:13 11/05/19 09:30 Tylenol #3 PO 1 tab Q4H PRN Administration Moderate Pain (4-6) Aspirin 81 mg 11/04/19 09:00 11/07/19 08:55 Ecotrin PO 81 mg DAILY MICHAEL Administration Atorvastatin Calcium 80 mg 11/06/19 21:00 11/06/19 21:05 Lipitor PO 80 mg HS MICHAEL Administration Carvedilol 6.25 mg 11/04/19 08:00 11/07/19 08:55 Coreg PO 6.25 mg BID-WM MICHAEL Administration Ezetimibe 10 mg 11/04/19 21:00 11/06/19 21:05 Zetia PO 10 mg HS MICHAEL Administration Famotidine 20 mg 11/03/19 21:00 11/07/19 08:55 Pepcid PO 20 mg BID MICHAEL Administration Furosemide 40 mg 11/04/19 06:00 11/07/19 05:48 Lasix SLOW IVP 40 mg 0600,1400 MICHAEL Administration Gabapentin 200 mg 11/04/19 09:00 11/07/19 08:55 Neurontin PO 200 mg BID MICHAEL Administration Hydralazine HCl 10 mg 11/07/19 06:00 11/07/19 05:48 Apresoline PO 10 mg Q8HR MICHAEL Administration Insulin Glargine 15 units/ 0.15 mls @ 0 mls/hr 11/04/19 21:00 11/06/19 21:08 Miscellaneous Medication SC Not Given HS MICHAEL Isosorbide Mononitrate 30 mg 11/07/19 09:00 11/07/19 08:55 Imdur Er PO 30 mg DAILY MICHAEL Administration Magnesium Oxide 400 mg 11/06/19 21:00 11/07/19 08:55 Magnesium Oxide PO 400 mg BID MICHAEL Administration Trimethoprim/Sulfamethoxazole 1 tab 11/05/19 21:00 11/07/19 08:55 Bactrim Ds PO 11/10/19 21:01 1 tab BID MICHAEL Administration - Exam General Appearance: NAD, awake alert ENT: normocephalic atraumatic, moist mucosa Neck: supple, symmetric, no lymphadenopathy Heart: RRR, no murmur, no gallops, no rubs Respiratory: CTAB, no wheezes, no rales, no ronchi Gastrointestinal: soft, non-tender, non-distended, normal bowel sounds Extremities: 1+ LE edema Psychiatric: normal affect, normal behavior Hosp A/P (1) Acute on chronic heart failure Code(s): I50.9 - HEART FAILURE, UNSPECIFIED Status: Acute (2) UTI (urinary tract infection) Status: Acute (3) Chest pain Code(s): R07.9 - CHEST PAIN, UNSPECIFIED Status: Acute (4) HTN (hypertension) Code(s): I10 - ESSENTIAL (PRIMARY) HYPERTENSION Status: Chronic (5) DMII (diabetes mellitus, type 2) Status: Chronic Qualifiers: Diabetes mellitus skilled nursing insulin use: with exterminator helper termite use - Plan Acute on chronic heart failure: contine IV lasix to diurese, tele monitor, medication changes per Dr Ibrahim, ICD upgrade today with Dr Clements Chest pain: resolved, elevated troponin, cardiology following patient DM II: stable, will closely monitor as patient is NPO for procedure today HTN: stable UTI: continue Bactrim, pt asymptomatic WCT following patient- wound vac still in place
--- NOTE | 2019-11-07 14:20 | CON ---
DATE OF CONSULTATION: 11/07/[address] Gary Clements. PHONE ENGINEER: Dr. More. HISTORY OF PRESENT ILLNESS: Ms. Smallwood is a 74-year-old woman, known to our practice with a history of acute on chronic systolic congestive heart failure with ischemic cardiomyopathy. The left ventricular ejection fraction on 07/27/2017 was 10% to 15%. It persisted severely reduced despite medical management, and a single-chamber ICD was placed as primary prophylactic prevention. She also has moderate to severe aortic valve stenosis. She presented to [facility] on the . She has been noticing increasing edema and increasing dyspnea. She had just been discharged from rehab on October 29. On Tuesday, she began to develop chest pain and pressure, which became persistent with increasingly severe shortness of breath and was brought to the emergency room. She was found to be in acute congestive heart failure and has improved with Lasix as she starts to diurese. She has been on telemetry and has been seen to have symptomatic bradycardia. This is limiting her heart failure treatment regimen as beta-blockers cannot be given due to the bradycardia results. EP consultation was requested for consideration of upgrading her device to a dual-chamber system, adding an atrial lead. Currently, Ms. Smallwood is feeling fair. Her shortness of breath has significantly improved as is her edema since she came in 4 days prior. She does not appear to be in any distress. She continues to recover from her recent right BKA. REVIEW OF SYSTEMS: Denies heart racing, palpitations, chest pain, pressure, syncope, near syncope, stroke, or stroke-like symptoms. Otherwise, 12-point review of systems is unremarkable. PAST MEDICAL HISTORY: 1. Chronic systolic congestive heart failure, ischemic cardiomyopathy: a. EF in August 2017, 10% to 15%. 2. Valvular heart disease: a. Aortic stenosis, moderate to severe in the past at 1 cm2. 3. Vascular heart disease: a. Bilateral carotid artery stenosis, status post left CEA in 2016. b. Arterial stenosis, status post bilateral stent placement. 4. Coronary artery disease. 5. Hypertension. 6. Hypercholesterolemia. 7. Type 2 diabetes. 8. Obesity. 9. Renal artery stenosis with left iliac occlusion. 10. GERD. 11. Bilateral tubal ligation. 12. Single-chamber Medtronic ICD implanted on 10/21/2017, Visia AF VR. 13. Right BKA. 14. Coronary artery bypass in 2002, three-vessel. ALLERGIES: PENICILLIN AND TRAMADOL. HOME MEDICATIONS: 1. Lantus 20 units at bedtime. 2. NovoLog with meals as directed. 3. Gabapentin 200 mg b.i.d. 4. Zetia 10 mg daily. 5. Coreg 6.25 mg b.i.d., which has been discontinued due to bradycardia. 6. Atorvastatin 40 mg at bedtime. 7. Aspirin 81 mg daily. 8. Tylenol No. 3 q.4 hours p.r.n. FAMILY HISTORY: Noncontributory. SOCIAL HISTORY: Prior smoker. Denies alcohol or drug abuse. OBJECTIVE: VITAL SIGNS: Temperature 97.8, pulse 55, blood pressure 126/56, oxygen 99% on room air, and respirations 18. GENERAL: The patient is alert and oriented. Speech is clear. Affect is appropriate. She is in no apparent distress at the time of the exam, resting comfortably in bed. Recent right BKA is noted with a dressing in place. HEENT: Normocephalic and atraumatic. Sclerae are anicteric. EOMs are intact. Oral mucous is moist and pink with adequate dentition. NECK: Supple with mild jugular venous distention. Trachea is midline. There is no lymphadenopathy. HEART: Rate is regularly irregular with crisp S1 and S2. There is a 3/6 holosystolic murmur along the right sternal border. ABDOMEN: Soft and nontender without palpable masses. EXTREMITIES: Slightly edematous. Right BKA is noted with a dressing in place. NEUROLOGIC: Grossly intact and nonfocal. Gait was not assessed. DATABASE: Laboratories: WBC 3.7, hemoglobin 8.3, platelet count 133. Chemistry; potassium 3.8, creatinine 1.3, magnesium 1.8. BNP 4714. Telemetry and EKG show sinus rhythm and sinus bradycardia. ICD, the patient has a Medtronic Visia AF single-chamber ICD. IMPRESSION: 1. [id number] systolic congestive heart failure. 2. Sick sinus syndrome, symptomatic bradycardia, limiting heart failure management as she cannot tolerate beta-jerica. 3. Status post single-chamber ICD implant in October of 2017 with normal function. 4. Hypertension. 5. Diabetes. 6. Chronic renal insufficiency. 7. Peripheral vascular disease, status post right BKA. PLAN AND RECOMMENDATIONS: Ms. Smallwood is a pleasant woman, whom I know well. We outlined that she is in congestive heart failure with fluid overload. Unfortunately, she is currently limited with her heart failure management as her beta jerica therapy is causing significant bradycardia and she is symptomatic with this. As such, she would benefit from the addition of an atrial lead to prevent further bradycardia and allow for improved medical treatment of her heart failure. I discussed this with her at length including the risks, benefits, and alternatives, risks include pain, bruising, swelling, infection, pneumothorax, pericardial effusion, SVC occlusion requiring a tunneled lead from the contralateral side, device malfunction and possible need for extraction. She voices understanding and wishes to proceed at the earliest convenience. We may be able to arrange this for later today. Thank you for allowing me to participate in the care of this shared patient. We will continue to follow Job ID: [id number]
[2019-11-07] MEDS ORDERED: Acetaminophen/Codeine 30-300mg Tablet PO PRN ×2 (15:00)
--- NOTE | 2019-11-07 16:06 | PDOC.EVN ---
Event Note - Event Note Event Note: Ms. Smallwood was seen and examined and discussed with Devi Fall NP. She does not have any new complaints. She is back from having an upgrade of her defibrillator. Exam is unchanged., with the exception of some soreness in her left upper extremity. Agree with the addition of Hydralazine and Isosorbide and increased dose of Lipitor Her blood glucose is stable, and renal function is also stable. Will monitor overnight.
[2019-11-07 17:48] LABS: SARS-CoV-2 MS2 Positive; SARS-CoV-2 N Gene Negative; SARS-CoV-2 S Gene Negative; SARS-CoV-2 orf1ab Negative
[2019-11-07] MEDS: Ezetimibe 10 MG TAB PO SCH (19:59)
[2019-11-07] MEDS: Atorvastatin Calcium 40 MG TAB PO SCH (19:59)
[2019-11-07] MEDS: Acetaminophen/Codeine 30-300mg Tablet PO PRN (20:00)
[2019-11-07] MEDS: Clindamycin/D5W 300 MG in Premix Bag 1 BAG IVPB SCH (21:16)
[2019-11-07] MEDS: Insulin Glargine 15 UNITS in Pre-Filled Syringe 1 EACH SC SCH (21:17)
[2019-11-08] MEDS: Clindamycin/D5W 300 MG in Premix Bag 1 BAG IVPB SCH (04:26)
[2019-11-08] MEDS: Clindamycin 150 MG CAP PO SCH ×3 (05:15→21:07)
[2019-11-08] MEDS: hydrALAZINE 10 MG TAB PO SCH ×3 (05:16→21:07)
[2019-11-08] MEDS: Furosemide 40 MG/4 ML VIAL SLOW IVP SCH (05:16)
[2019-11-08] MEDS: Acetaminophen/Codeine 30-300mg Tablet PO PRN (08:29)
[2019-11-08] MEDS: Aspirin 81 mg Enteric Coated Tablet PO SCH (08:30)
[2019-11-08] MEDS: Sulfameth/Trimethoprim DS 800-160mg TAB PO SCH ×2 (08:30→20:46)
[2019-11-08] MEDS: Carvedilol 6.25 MG TAB PO SCH ×2 (08:30→16:52)
[2019-11-08] MEDS: Gabapentin 100 MG CAP PO SCH ×2 (08:30→20:46)
[2019-11-08] MEDS: Isosorbide Mononitrate (ER) 30 MG TAB PO SCH (08:30)
[2019-11-08] MEDS: Magnesium Oxide 400 MG TAB PO SCH ×2 (08:30→20:46)
[2019-11-08] MEDS: Famotidine 20 MG TAB PO SCH (08:30)
[2019-11-08] MEDS ORDERED: Torsemide 20 MG TAB PO SCH (09:00)
[2019-11-08] MEDS: Empagliflozin 25 MG TAB PO SCH (09:45)
--- NOTE | 2019-11-08 10:26 | PDOC.EP ---
- Subjective Date: 11/08/19 Time: 08:00 Interval History: Follow-up after undergoing addition of an atrial lead to pre-existing single- chamber ICD. Upgrade performed 11/07/2019. Patient reports some tenderness in the left chest implant site. Other than she feels well and denies any cardiac or ICD related concerns or complaints. - Review of Systems Constitutional: denies: chills, fever, malaise, sweats, weakness Respiratory: denies: cough, pleuritic pain, shortness of breath, wheezing Cardiology: denies: chest pain Gastrointestinal: denies: abdominal pain, constipation, nausea, vomitting Musculoskeletal: reports: shoulder pain, arm pain. denies: falls, neck pain, leg pain, foot pain - Objective Allergies/Adverse Reactions: Allergies Allergy/AdvReac Type Severity Reaction Status Date / Time tramadol Allergy Intermediate Nausea Verified 11/03/19 19:38 Penicillins Allergy Rash Verified 11/03/19 19:38 Current Medications Acetaminophen (Tylenol) 650 mg PO Q4H PRN PRN Reason: Headache/Fever/Mild Pain (1-3) Last Admin: 11/07/19 03:12 Dose: 650 mg Acetaminophen/Codeine Phosphate (Tylenol #3) 1 tab PO Q4H PRN PRN Reason: Mild Pain (1-3) Acetaminophen/Codeine Phosphate (Tylenol #3) 2 tab PO Q4H PRN PRN Reason: Moderate Pain (4-6) Aspirin (Ecotrin) 81 mg PO DAILY [facility] Last Admin: 11/08/19 08:30 Dose: 81 mg Atorvastatin Calcium (Lipitor) 80 mg PO [facility] Last Admin: 11/07/19 19:59 Dose: 80 mg Carvedilol (Coreg) 6.25 mg PO [facility] Last Admin: 11/08/19 08:30 Dose: 6.25 mg Clindamycin HCl (Cleocin) 300 mg PO Q8HR [facility] Stop: 11/14/19 22:01 Last Admin: 11/08/19 05:15 Dose: 300 mg Dextrose/Water (Dextrose 50%) 25 gm SLOW IVP PRN PRN PRN Reason: Hypoglycemia Ezetimibe (Zetia) 10 mg PO [facility] Last Admin: 11/07/19 19:59 Dose: 10 mg Famotidine (Pepcid) 20 mg PO [facility]ID [facility] Last Admin: 11/08/19 08:30 Dose: 20 mg Gabapentin (Neurontin) 200 mg PO BID [facility] Last Admin: 11/08/19 08:30 Dose: 200 mg Glucagon (Glucagon) 1 mg IM PRN PRN PRN Reason: Hypoglycemia Hydralazine HCl (Apresoline) 10 mg SLOW IVP Q4H PRN PRN Reason: SBP > 180 and HR < 70 Hydralazine HCl (Apresoline) 10 mg PO Q8HR [facility] Last Admin: 11/08/19 05:16 Dose: 10 mg Dextrose/Water (D5w) 1,000 mls @ 0 mls/hr IV .Q0M PRN PRN Reason: Hypoglycemia Insulin Glargine 15 units/ (Miscellaneous Medication) 0.15 mls @ 0 mls/hr SC [facility] Last Admin: 11/07/19 21:17 Dose: 0.15 mls Insulin Human Lispro (Humalog) 0 units SC .MODERATE SLIDING SC PRN PRN Reason: Moderate Correctional Scale Last Admin: 11/08/19 07:12 Dose: 2 unit Insulin Human Lispro (Humalog) 0 units SC .BEDTIME SLIDING SC PRN PRN Reason: Bedtime Correctional Scale Isosorbide Mononitrate (Imdur Er) 30 mg PO DAILY [facility] Last Admin: 11/08/19 08:30 Dose: 30 mg Labetalol HCl (Normodyne) 20 mg SLOW IVP Q4H PRN PRN Reason: SBP > 180 and HR >/= 70 Magnesium Oxide (Magnesium Oxide) 400 mg PO BID [facility] Last Admin: 11/08/19 08:30 Dose: 400 mg Miscellaneous Medication (Jardiance) 25 mg PO DAILY [facility] Last Admin: 11/08/19 09:45 Dose: 25 mg Nitroglycerin (Nitrostat) 0.4 mg PO Q5MIN PRN PRN Reason: Chest Pain Ondansetron HCl (Zofran Odt) 4 mg PO Q6H PRN PRN Reason: Nausea/Vomiting Ondansetron HCl (Zofran) 4 mg IVP Q6H PRN PRN Reason: Nausea/Vomiting Sodium Chloride (Flush - Normal Saline) 10 ml IVF PRN PRN PRN Reason: Saline Flush Torsemide (Demadex) 20 mg PO [facility]ILY [facility] Last Admin: 11/08/19 09:45 Dose: 20 mg Trimethoprim/Sulfamethoxazole (Bactrim Ds) 1 tab PO BID [facility] Stop: 11/10/19 21:01 Last Admin: 11/08/19 08:30 Dose: 1 tab Vital Signs & Weight: Vital Signs Temp Pulse Resp BP Pulse Ox 11/08/19 08:29 98 11/08/19 07:15 98.5 F 62 16 124/56 L 98 11/08/19 06:59 96 11/08/19 03:43 98.0 F 63 18 109/57 L 96 11/07/19 22:35 98.6 F 60 109/85 Admit Weight 184 lb 8 oz Weight 172 lb 6 oz I/O: I/O 11/07/19 11/08/19 11/09/19 06:59 06:59 06:59 Intake Total 480 820 Output Total 1550 1920 Balance -1070 -1100 - Physical Exam General: alert & oriented x3, appears well, no apparent distress, speech clear, affect appropriate HEENT: mucus membranes moist, normocephaly Neck: supple neck, midline trachea, no JVD/HJR, no masses, no bruit, no lymphadenopathy, no thromegaly Cardiology: regular rate and rhythm, no murmur, regular rate, regular rhythm, PMI nondisplaced Lungs: clear to auscultation, normal breath sounds, normal exam, no wheeze, rales, rhonchi, no wheezes, no rales, no rhonchi Neurology: cranial nerve 2-12 intact, grossly intact, no lateralizing findings Abdomen: unremarkable, active bowel sounds, no pulsations/bruits Extremities: dry, strong pulses, warm Skin: left sided device, swelling. negative: bruising, drainage, erosion, hematoma - Labs Result Diagrams: 11/09/19 04:27 11/09/19 04:27 - EKG Interpretation EKG Method: Telemetry EKG shows: Sinus rhythm ( demand pacing seen) - Device Device: dual, defibrillator Device Result: [employer]onic - Assessment/Plan Assessment/Plan: 1. Med[employer]onic ICD - upgrade from single to dual-chamber system on 11/07/2019 for sick sinus syndrome - device check is stable this morning - 7 days post implant antibiotic therapy to continue - chest x-ray stable post upgrade: negative for pneumothorax or pericardial effusion. Positive for congestive heart failure 2. acute on chronic systolic congestive heart failure 3. sick sinus syndrome - corrected with addition of atrial lead 4. hypertension Continue clindamycin 300 mg q.8 hours x7 days. With pacing support now in place may resume beta-jerica therapy as directed by Cardiology/Heart failure teams. Stable from an electrophysiology perspective for discharge. Would sign out. Will see her for wounds check in 2 weeks in office. Thank you.
[2019-11-08 10:37] LABS: #Lymphocytes 0.9 thou/uL (1.20-3.40); #Monocytes 0.4 thou/uL (0.11-0.59); #Neutrophils 2.7 thou/uL (1.40-6.50); %Basophils 0.9 % (0.0-1.0); %Eosinophils 0.4 % (0.0-10.0); %Lymphocytes 21.3 % (21.0-51.0); %Monocytes 10.1 % (0.0-10.0); %Neutrophils 67.2 % (42.0-75.0); Hemoglobin 9.1 g/dL (12.0-16.0); Mean Corpuscular HGB CONC 30.2 g/dL (32.0-36.0); Mean Platelet Volume 8.3 fL (7.4-10.4); Platelet Count 145 thou/uL (130-400); Red Blood Cell (RBC) Count 2.92 mill/uL (4.20-5.40); White Blood Cell (WBC) Count 4.1 thou/uL (4.8-10.8)
[2019-11-08 10:56] LABS: Anion Gap 13 mmol/L (10-20); BUN (Urea Nitrogen) 18 mg/dL (9.8-20.1); Calc. Creatinine Clearance 43 mL/min (70-130); Carbon Dioxide 30 mmol/L (23-31); Chloride 97 mmol/L (98-107); Estimated GFR-MDRD 44; Glucose 128 mg/dL (83-110); Magnesium 1.8 mg/dL (1.6-2.6); Potassium 4.4 mmol/L (3.5-5.1); Sodium 136 mmol/L (136-145)
--- NOTE | 2019-11-08 12:15 | PRG ---
DATE OF SERVICE: 11/08/2019 This is from an advanced heart failure cardiology consulting service. SUBJECTIVE: Ms. Carmen Smallwood had an excellent day. She returned from upgrade to her AICD by attaching the right atrial lead to a current device without too much problems. She says she continued to improve in breathing and breathing easier and she is able to sleep well overnight. The patient believes her edema also has decreased. REVIEW OF SYSTEMS: GENERAL: There is no fever, chills, or productive cough. HEENT: Showed that there is no change in vision, hearing, or swallowing. PULMONARY: Please see HPI. CARDIAC: There is no chest pain, palpitations, or syncope. GI: She is eating well. : She can urinate on her own. MUSCULOSKELETAL: There are no new complaints of joint pains. INTEGUMENT: There is no new skin breakdown. NEUROLOGIC: There are no new complaints of focal deficits or weaknesses. CARDIAC MEDICATIONS: Include: 1. Aspirin 81 mg daily. 2. Atorvastatin 80 mg at bedtime. 3. Carvedilol currently at 6.25 mg twice per day. 4. Zetia 10 mg daily. 5. Hydralazine 10 mg q.8 hours. 6. Isosorbide mononitrate 30 mg daily. 7. Magnesium oxide 800 mg twice a day. 8. She was on Lasix 40 mg IV twice a day. PHYSICAL EXAMINATION: Her telemetry was reviewed. She is now apparently paced at 60 beats per minute. She has some occasional PVC. There is no apparent concerning arrhythmia. VITAL SIGNS: Her latest vital signs are heart rate 62, blood pressure 124/56. GENERAL: She is alert, conversational, sitting comfortably in bed. HEENT: Show EOMI. Her oropharynx is benign with some moist mucosa. NECK: Her JVP has decreased about 10 cm. PULMONARY: She has had good air movement bilaterally and also clear to auscultation bilaterally, this is the best I have heard. CARDIAC: Her cardiac exam showed regular rate and rhythm with a normal S1/S2, 2 /6 holosystolic murmur at the apex with radiation to the left axilla. There is 1/6 diastolic murmur at the right sternal border. There is also 2/6 crescendo-decrescendo murmur at the right upper sternal border. Therefore, she has mitral regurgitation, aortic regurgitation, and aortic stenosis. ABDOMEN: Soft, nontender. Positive bowel sounds. EXTREMITIES: She has a right BKA. Her left lower extremity has minimal edema. This has much improved. LABORATORY STUDIES: There is no laboratory done today. ASSESSMENT: A 74-year-old lady is improving. She looks to about euvolemic today. However, she still resides in [place] [employer] stage C, also [place] Heart Association class III heart failure with reduced ejection fraction. This is due to ischemic cardiomyopathy. Her relative bradycardia was corrected. She appears to be well compensated too. However, we need to see her labs, so we can know what the limits of titrating her medication. The new medication, Farxiga, has recently approved by FDA, it is very efficacious for improving HFrEF. We will transition her from IV Lasix to oral torsemide today also. I will wait until tomorrow to titrate carvedilol. Please see the following for recommendations. RECOMMENDATIONS: 1. Please do stat labs of CBC, BMP, BNP, and magnesium. 2. Please stop IV Lasix now. 3. Transition to torsemide 20 mg daily. 4. Start Farxiga, the generic name is dapagliflozin, start at 10 mg daily. 5. Please continue with daily labs of CBC, BMP, BNP, and magnesium. If she looks well tomorrow, we can increase her carvedilol. After that, she can probably go home if her torsemide does work today. It has been a pleasure taking care of Ms. Smallwood. If you have any questions, please give me a call. Job ID: [id number] [facility]
--- NOTE | 2019-11-08 13:39 | PDOC.HOSPP ---
- Subjective Encounter Date: 11/08/19 Encounter Time: 10:00 Subjective: Ms Smallwood is seen for a follow up on CHF exacerbation and AICD upgrade. She says she is feeling well and that Dr. Ibrahim wants her to continue to diurese. She is happy with the progress she has made so far. - Objective Vital Signs & Weight: Vital Signs (12 hours) Temp Pulse Resp BP Pulse Ox 11/08/19 11:05 98.0 F 61 16 107/55 L 98 11/08/19 08:29 98 11/08/19 07:15 98.5 F 62 16 124/56 L 98 11/08/19 06:59 96 11/08/19 03:43 98.0 F 63 18 109/57 L 96 Weight Admit Weight 184 lb 8 oz Weight 172 lb 6 oz I&O: 11/07/19 11/08/19 11/09/19 06:59 06:59 06:59 Intake Total 480 820 Output Total 1550 1920 Balance -1070 -1100 Result Diagrams: 11/08/19 10:20 11/08/19 10:21 Additional Labs: Accuchecks 11/08/19 11/07/19 11/07/19 05:46 20:33 16:39 POC Glucose 167 H 157 H 118 H Hospitalist ROS - Medication Medications: Active Medications Generic Name Dose Route Start Last Admin Trade Name Freq PRN Reason Stop Dose Admin Acetaminophen 650 mg 11/03/19 17:54 11/07/19 03:12 Tylenol PO 650 mg Q4H PRN Administration Headache/Fever/Mild Pain (1-3) Aspirin 81 mg 11/04/19 09:00 11/08/19 08:30 Ecotrin PO 81 mg DAILY [facility] Administration Atorvastatin Calcium 80 mg 11/06/19 21:00 11/07/19 19:59 Lipitor PO 80 mg HS [facility] Administration Carvedilol 6.25 mg 11/04/19 08:00 11/08/19 08:30 Coreg PO 6.25 mg BID-[facility] Administration Clindamycin HCl 300 mg 11/08/19 06:00 11/08/19 13:13 Cleocin PO 11/14/19 22:01 300 mg Q8HR [facility] Administration Ezetimibe 10 mg 11/04/19 21:00 11/07/19 19:59 Zetia PO 10 mg HS [facility] Administration Gabapentin 200 mg 11/04/19 09:00 11/08/19 08:30 Neurontin PO 200 mg BID [facility] Administration Hydralazine HCl 10 mg 11/07/19 06:00 11/08/19 13:13 Apresoline PO 10 mg Q8HR [facility] Administration Insulin Glargine 15 units/ 0.15 mls @ 0 mls/hr 11/04/19 21:00 11/07/19 21:17 Miscellaneous Medication SC 0.15 mls HS [facility] Administration Insulin Human Lispro 0 units 11/03/19 17:54 11/08/19 07:12 Humalog SC 2 unit .MODERATE SLIDING SC PRN Administration Moderate Correctional Scale Isosorbide Mononitrate 30 mg 11/07/19 09:00 11/08/19 08:30 Imdur Er PO 30 mg DAILY [facility] Administration Magnesium Oxide 400 mg 11/06/19 21:00 11/08/19 08:30 Magnesium Oxide PO 400 mg BID [facility] Administration Miscellaneous Medication 25 mg 11/08/19 09:00 11/08/19 09:45 Jardiance PO 25 mg DAILY [facility] Administration Torsemide 20 mg 11/08/19 09:00 11/08/19 09:45 Demadex PO 20 mg DAILY [facility] Administration Trimethoprim/Sulfamethoxazole 1 tab 11/05/19 21:00 11/08/19 08:30 Bactrim Ds PO 11/10/19 21:01 1 tab BID [facility] Administration - Exam General Appearance: NAD, awake alert ENT: moist mucosa Neck: supple, symmetric, no lymphadenopathy Heart: RRR, no gallops, no rubs, murmur present Respiratory: CTAB, no wheezes, no rales, no ronchi, normal chest expansion Gastrointestinal: soft, non-tender, non-distended, normal bowel sounds Psychiatric: normal affect, normal behavior Hosp A/P (1) Acute on chronic heart failure Code(s): I50.9 - HEART FAILURE, UNSPECIFIED Status: Acute (2) UTI (urinary tract infection) Status: Acute (3) Chest pain Code(s): R07.9 - CHEST PAIN, UNSPECIFIED Status: Acute (4) HTN (hypertension) Code(s): I10 - ESSENTIAL (PRIMARY) HYPERTENSION Status: Chronic (5) DMII (diabetes mellitus, type 2) Status: Chronic Qualifiers: Diabetes mellitus assisted insulin use: with exterminator termite use (6) S/P ICD (internal cardiac defibrillator) procedure Status: Acute - Plan Acute on chronic heart failure: continue with Dr. Ibrahim's recommendations Chest pain: resolved, elevated troponin, cardiology following patient DM II: stable HTN: stable UTI: continue Bactrim, pt asymptomatic ICD upgrade: stable, no signs of infection, afebrile, continue antibiotics WCT following patient- wound vac still in place
[2019-11-08] MEDS ORDERED: Simethicone Chewable 80 MG TAB PO PRN (16:16)
--- NOTE | 2019-11-08 17:13 | PDOC.CPN ---
- Subjective Date: 11/08/19 Time: 12:00 Interval history: The pt seen and examined. No overnight events. No cardiac complaints. - Objective Allergies/Adverse Reactions: Allergies Allergy/AdvReac Type Severity Reaction Status Date / Time tramadol Allergy Intermediate Nausea Verified 11/03/19 19:38 Penicillins Allergy Rash Verified 11/03/19 19:38 Visit Medications: Current Medications Acetaminophen (Tylenol) 650 mg PO Q4H PRN PRN Reason: Headache/Fever/Mild Pain (1-3) Last Admin: 11/07/19 03:12 Dose: 650 mg Acetaminophen/Codeine Phosphate (Tylenol #3) 1 tab PO Q4H PRN PRN Reason: Mild Pain (1-3) Acetaminophen/Codeine Phosphate (Tylenol #3) 2 tab PO Q4H PRN PRN Reason: Moderate Pain (4-6) Aspirin (Ecotrin) 81 mg PO DAILY [facility] Last Admin: 11/08/19 08:30 Dose: 81 mg Atorvastatin Calcium (Lipitor) 80 mg PO [facility] Last Admin: 11/07/19 19:59 Dose: 80 mg Carvedilol (Coreg) 6.25 mg PO [facility]ID[facility] Last Admin: 11/08/19 16:52 Dose: 6.25 mg Clindamycin HCl (Cleocin) 300 mg PO Q8HR [facility] Stop: 11/14/19 22:01 Last Admin: 11/08/19 13:13 Dose: 300 mg Dextrose/Water (Dextrose 50%) 25 gm SLOW IVP PRN PRN PRN Reason: Hypoglycemia Ezetimibe (Zetia) 10 mg PO [facility] Last Admin: 11/07/19 19:59 Dose: 10 mg Famotidine (Pepcid) 20 mg PO [facility]ILY [facility] Gabapentin (Neurontin) 200 mg PO BID [facility] Last Admin: 11/08/19 08:30 Dose: 200 mg Glucagon (Glucagon) 1 mg IM PRN PRN PRN Reason: Hypoglycemia Hydralazine HCl (Apresoline) 10 mg SLOW IVP Q4H PRN PRN Reason: SBP > 180 and HR < 70 Hydralazine HCl (Apresoline) 10 mg PO Q8HR [facility] Last Admin: 11/08/19 13:13 Dose: 10 mg Dextrose/Water (D5w) 1,000 mls @ 0 mls/hr IV .Q0M PRN PRN Reason: Hypoglycemia Insulin Glargine 15 units/ (Miscellaneous Medication) 0.15 mls @ 0 mls/hr SC [facility] Last Admin: 11/07/19 21:17 Dose: 0.15 mls Insulin Human Lispro (Humalog) 0 units SC .MODERATE SLIDING SC PRN PRN Reason: Moderate Correctional Scale Last Admin: 11/08/19 07:12 Dose: 2 unit Insulin Human Lispro (Humalog) 0 units SC .BEDTIME SLIDING SC PRN PRN Reason: Bedtime Correctional Scale Isosorbide Mononitrate (Imdur Er) 30 mg PO DAILY [facility] Last Admin: 11/08/19 08:30 Dose: 30 mg Labetalol HCl (Normodyne) 20 mg SLOW IVP Q4H PRN PRN Reason: SBP > 180 and HR >/= 70 Magnesium Oxide (Magnesium Oxide) 400 mg PO BID [facility] Last Admin: 11/08/19 08:30 Dose: 400 mg Miscellaneous Medication (Jardiance) 25 mg PO DAILY [facility] Last Admin: 11/08/19 09:45 Dose: 25 mg Nitroglycerin (Nitrostat) 0.4 mg PO Q5MIN PRN PRN Reason: Chest Pain Ondansetron HCl (Zofran Odt) 4 mg PO Q6H PRN PRN Reason: Nausea/Vomiting Ondansetron HCl (Zofran) 4 mg IVP Q6H PRN PRN Reason: Nausea/Vomiting Simethicone (Mylicon Chewable) 80 mg PO [facility] PRN PRN Reason: Gas Pain Last Admin: 11/08/19 16:52 Dose: 80 mg Sodium Chloride (Flush - Normal Saline) 10 ml IVF PRN PRN PRN Reason: Saline Flush Torsemide (Demadex) 20 mg PO DAILY [facility] Last Admin: 11/08/19 09:45 Dose: 20 mg Trimethoprim/Sulfamethoxazole (Bactrim Ds) 1 tab PO BID [facility] Stop: 11/10/19 21:01 Last Admin: 11/08/19 08:30 Dose: 1 tab Vital Signs & Weight: Vital Signs Temp Pulse Resp BP Pulse Ox 11/08/19 11:05 98.0 F 61 16 107/55 L 98 11/08/19 08:29 98 11/08/19 07:15 98.5 F 62 16 124/56 L 98 11/08/19 06:59 96 Admit Weight 184 lb 8 oz Weight 172 lb 6 oz - Physical Exam General: alert & oriented x3 HEENT: mucus membranes moist Neck: supple neck Cardiac: regular rate and rhythm, S1/S2 Lungs: decreased breath sounds Neuro: cranial nerve 2-12 intact Abdomen: unremarkable Extremities: no edema Skin: clear - Labs Result Diagrams: 11/08/19 10:20 11/08/19 10:21 Troponin/CKMB CK-MB (CK-2) 2.0 ng/mL (0-6.6) 11/03/19 15:01 Troponin I 0.149 ng/mL (< 0.028) H 11/03/19 21:22 - Telemetry Sinus rhythms and dysrhythmias: other (A paced) - Assessment/Plan Assessment/Plan: 1. Acute on chronic combined HF exacerbation with EF 10-15% and grade II dd (EF 20-25% and grade III dd in 07/2019) - stable with RA; Jardiance 25mg (original order was Farxiga 10mg qd) from today; Lasix 40mg IV BID was stopped; On Coreg; Entresto has been on hold since she was in rehab due to hypotenstion, renal insuff.; appreciate Dr toribio's input 2. PVD (with bilat subclavian stent in 2017, BMS to Rt distal common prox and externa iliac artery in 09/2018 and s/p Rt Fem suprageniculate popliteal artery bypass in 09/2018) and with hx of Rt BKA in 09/2019 - Wound vac to Rt BKA; No Plavix for unknown reason (possible due to anemia?) 3. Ischemic CMY with hx of AICD in 2018 and upgrade from single to dual chamber on 11/07/2019 4. KB on CKD - unchanged 5. Severe CAD with s/p CABG x 4 in 2003 - Not felt to be a candidate for further intervention or surgery.on Coreg, ASA and Statin 6. HTN - hypotensive; 7. HLD - on Statin 8. DM type 2 9. Hx of Lt in 2015 10. mod-severe with RAMON 1.21 sq cm on 11/08/2019 (1.1cm in 07/2019) MAR reviewed * Echo on 11/08/2019 with EF 10-15%, grade II dd, mod LAE, severe ABIGAIL, mild MR, mild AR, mod with RAMON 1.21sq cm, severe TR, and mild RI Pt. seen and eval. by me. I agree with the A/P by the ELECTRONIC PUBLISHING SPECIALIST. Poor prognosis but pt. is feeling better. Chest clear. RRR. Mild edema. gjm
[2019-11-08] MEDS: Ezetimibe 10 MG TAB PO SCH (20:47)
[2019-11-08] MEDS: Atorvastatin Calcium 40 MG TAB PO SCH (20:47)
[2019-11-08] MEDS: Insulin Glargine 15 UNITS in Pre-Filled Syringe 1 EACH SC SCH (20:47)
[2019-11-09 04:52] LABS: #Lymphocytes 0.9 thou/uL (1.20-3.40); #Monocytes 0.4 thou/uL (0.11-0.59); #Neutrophils 2.3 thou/uL (1.40-6.50); %Basophils 0.8 % (0.0-1.0); %Eosinophils 0.5 % (0.0-10.0); %Lymphocytes 23.5 % (21.0-51.0); %Monocytes 11.1 % (0.0-10.0); %Neutrophils 64.1 % (42.0-75.0); Hemoglobin 8.8 g/dL (12.0-16.0); Mean Corpuscular HGB CONC 31.1 g/dL (32.0-36.0); Mean Corpuscular Hemoglobin 31.6 pg (27.0-31.0); Mean Platelet Volume 8.9 fL (7.4-10.4); Platelet Count 132 thou/uL (130-400); RBC Distribution Width 14.1 % (11.5-14.5); Red Blood Cell (RBC) Count 2.77 mill/uL (4.20-5.40); White Blood Cell (WBC) Count 3.6 thou/uL (4.8-10.8)
[2019-11-09 05:18] LABS: Anion Gap 13 mmol/L (10-20); BUN (Urea Nitrogen) 16 mg/dL (9.8-20.1); Calc. Creatinine Clearance 45 mL/min (70-130); Calcium 8.8 mg/dL (7.8-10.44); Carbon Dioxide 26 mmol/L (23-31); Chloride 99 mmol/L (98-107); Estimated GFR-MDRD 45; Glucose 121 mg/dL (83-110); Magnesium 1.9 mg/dL (1.6-2.6); Potassium 4.5 mmol/L (3.5-5.1); Sodium 133 mmol/L (136-145)
[2019-11-09] MEDS: hydrALAZINE 10 MG TAB PO SCH ×3 (06:17→22:10)
[2019-11-09] MEDS: Clindamycin 150 MG CAP PO SCH (06:17)
[2019-11-09] MEDS ORDERED: Spironolactone 25 MG TAB PO SCH (09:00)
[2019-11-09] MEDS ORDERED: Bumetanide 1 MG TAB PO SCH (09:00)
[2019-11-09] MEDS: Carvedilol 6.25 MG TAB PO SCH ×2 (09:55→16:28)
[2019-11-09] MEDS: Famotidine 20 MG TAB PO SCH (09:55)
[2019-11-09] MEDS: Magnesium Oxide 400 MG TAB PO SCH ×2 (09:55→22:09)
[2019-11-09] MEDS: Aspirin 81 mg Enteric Coated Tablet PO SCH (09:55)
[2019-11-09] MEDS: Gabapentin 100 MG CAP PO SCH ×2 (09:55→22:10)
[2019-11-09] MEDS: Isosorbide Mononitrate (ER) 30 MG TAB PO SCH (09:56)
[2019-11-09] MEDS: Empagliflozin 25 MG TAB PO SCH (09:56)
[2019-11-09] MEDS: Sulfameth/Trimethoprim DS 800-160mg TAB PO SCH ×2 (09:56→22:09)
--- NOTE | 2019-11-09 14:14 | PDOC.CPN ---
- Subjective Date: 11/09/19 Time: 09:00 Interval history: The pt seen and examined. No overnight events. No cardiac complaints. However , she complains of nausea. She stated she has been taken med, especially ABX without any foods - Objective Allergies/Adverse Reactions: Allergies Allergy/AdvReac Type Severity Reaction Status Date / Time tramadol Allergy Intermediate Nausea Verified 11/03/19 19:38 Penicillins Allergy Rash Verified 11/03/19 19:38 Visit Medications: Current Medications Acetaminophen (Tylenol) 650 mg PO Q4H PRN PRN Reason: Headache/Fever/Mild Pain (1-3) Last Admin: 11/07/19 03:12 Dose: 650 mg Acetaminophen/Codeine Phosphate (Tylenol #3) 1 tab PO Q4H PRN PRN Reason: Mild Pain (1-3) Last Admin: 11/08/19 21:06 Dose: 1 tab Acetaminophen/Codeine Phosphate (Tylenol #3) 2 tab PO Q4H PRN PRN Reason: Moderate Pain (4-6) Aspirin (Ecotrin) 81 mg PO DAILY [facility] Last Admin: 11/09/19 09:55 Dose: 81 mg Atorvastatin Calcium (Lipitor) 80 mg PO [facility] Last Admin: 11/08/19 20:47 Dose: 80 mg Bumetanide (Bumex) 1 mg PO BID-AC [facility] Carvedilol (Coreg) 6.25 mg PO BID-WM [facility] Last Admin: 11/09/19 09:55 Dose: 6.25 mg Dextrose/Water (Dextrose 50%) 25 gm SLOW IVP PRN PRN PRN Reason: Hypoglycemia Ezetimibe (Zetia) 10 mg PO [facility] Last Admin: 11/08/19 20:47 Dose: 10 mg Famotidine (Pepcid) 20 mg PO DAILY [facility] Last Admin: 11/09/19 09:55 Dose: 20 mg Gabapentin (Neurontin) 200 mg PO BID [facility] Last Admin: 11/09/19 09:55 Dose: 200 mg Glucagon (Glucagon) 1 mg IM PRN PRN PRN Reason: Hypoglycemia Hydralazine HCl (Apresoline) 10 mg SLOW IVP Q4H PRN PRN Reason: SBP > 180 and HR < 70 Hydralazine HCl (Apresoline) 10 mg PO Q8HR [facility] Last Admin: 11/09/19 06:17 Dose: 10 mg Dextrose/Water (D5w) 1,000 mls @ 0 mls/hr IV .Q0M PRN PRN Reason: Hypoglycemia Insulin Glargine 15 units/ (Miscellaneous Medication) 0.15 mls @ 0 mls/hr SC [facility] Last Admin: 11/08/19 20:47 Dose: 0.15 mls Insulin Human Lispro (Humalog) 0 units SC .MODERATE SLIDING SC PRN PRN Reason: Moderate Correctional Scale Last Admin: 11/08/19 07:12 Dose: 2 unit Insulin Human Lispro (Humalog) 0 units SC .BEDTIME SLIDING SC PRN PRN Reason: Bedtime Correctional Scale Isosorbide Mononitrate (Imdur Er) 30 mg PO DAILY [facility] Last Admin: 11/09/19 09:56 Dose: 30 mg Labetalol HCl (Normodyne) 20 mg SLOW IVP Q4H PRN PRN Reason: SBP > 180 and HR >/= 70 Magnesium Oxide (Magnesium Oxide) 400 mg PO BID [facility] Last Admin: 11/09/19 09:55 Dose: 400 mg Miscellaneous Medication (Jardiance) 25 mg PO DAILY [facility] Last Admin: 11/09/19 09:56 Dose: 25 mg Nitroglycerin (Nitrostat) 0.4 mg PO Q5MIN PRN PRN Reason: Chest Pain Ondansetron HCl (Zofran Odt) 4 mg PO Q6H PRN PRN Reason: Nausea/Vomiting Last Admin: 11/09/19 08:03 Dose: 4 mg Ondansetron HCl (Zofran) 4 mg IVP Q6H PRN PRN Reason: Nausea/Vomiting Simethicone (Mylicon Chewable) 80 mg PO PCHS PRN PRN Reason: Gas Pain Last Admin: 11/08/19 16:52 Dose: 80 mg Sodium Chloride (Flush - Normal Saline) 10 ml IVF PRN PRN PRN Reason: Saline Flush Spironolactone (Aldactone) 12.5 mg PO [facility] Trimethoprim/Sulfamethoxazole (Bactrim Ds) 1 tab PO BID [facility] Stop: 11/10/19 21:01 Last Admin: 11/09/19 09:56 Dose: 1 tab Vital Signs & Weight: Vital Signs Temp Pulse Resp BP BP Pulse Ox 11/09/19 11:32 98.3 F 66 16 120/58 L 94 L 11/09/19 09:54 124/60 11/09/19 08:09 98.9 F 80 12 137/60 97 11/09/19 04:00 98.5 F 65 16 108/51 L 96 Admit Weight 184 lb 8 oz Weight 169 lb 9 oz - Physical Exam General: alert & oriented x3 HEENT: mucus membranes moist Neck: supple neck Cardiac: regular rate and rhythm, S1/S2 Lungs: clear to auscultation, decreased breath sounds Neuro: cranial nerve 2-12 intact Extremities: other: (3-4+ pitting LLE edema) - Labs Result Diagrams: 11/09/19 04:27 11/09/19 04:27 Troponin/CKMB CK-MB (CK-2) 2.0 ng/mL (0-6.6) 11/03/19 15:01 Troponin I 0.149 ng/mL (< 0.028) H 11/03/19 21:22 - Telemetry Sinus rhythms and dysrhythmias: sinus rhythm - Assessment/Plan Assessment/Plan: 1. Acute on chronic combined HF exacerbation with EF 10-15% and grade II dd (EF 20-25% and grade III dd in 07/2019) - stable with RA; On Jardiance 25mg ( original order was Farxiga 10mg qd), spironolactone 12.5mg qd, and Coreg; Entresto has been on hold since she was in rehab due to hypotenstion and renal insuff.; appreciate Dr toribio's input 2. PVD (with bilat subclavian stent in 2017, BMS to Rt distal common prox and externa iliac artery in 09/2018 and s/p Rt Fem suprageniculate popliteal artery bypass in 09/2018) and with hx of Rt BKA in 09/2019 - Wound vac to Rt BKA; No Plavix for unknown reason (possible due to anemia?) 3. Ischemic CMY with hx of AICD in 2018 and upgrade from single to dual chamber on 11/07/2019 4. KB on CKD - unchanged 5. Severe CAD with s/p CABG x 4 in 2003 - Not felt to be a candidate for further intervention or surgery.on Coreg, ASA and Statin 6. HTN - stable 7. HLD - on Statin 8. DM type 2 9. Hx of Lt in 2016 10. mod-severe with RAMON 1.21 sq cm on 11/08/2019 (1.1cm in 07/2019) MAR reviewed * Echo on 11/08/2019 with EF 10-15%, grade II dd, mod LAE, severe ABIGAIL, mild MR, mild AR, mod with RAMON 1.21sq cm, severe TR, and mild [place] Pt. seen and eval. by me. I agree with the A/P by the [employer]. Poor prognosis . Chest clear. RRR. Mild edema. gjm
[2019-11-09] MEDS: Bumetanide 1 MG TAB PO SCH (16:28)
[2019-11-09] MEDS ORDERED: Doxycycline 100 MG CAP PO SCH (21:00)
[2019-11-09] MEDS: Atorvastatin Calcium 40 MG TAB PO SCH (22:09)
[2019-11-09] MEDS: Ezetimibe 10 MG TAB PO SCH (22:10)
[2019-11-09] MEDS: Insulin Glargine 15 UNITS in Pre-Filled Syringe 1 EACH SC SCH (22:10)
[2019-11-09] MEDS: Doxycycline 100 MG CAP PO SCH (22:10)
[2019-11-10 05:17] LABS: Anion Gap 12 mmol/L (10-20); BUN (Urea Nitrogen) 16 mg/dL (9.8-20.1); Calc. Creatinine Clearance 41 mL/min (70-130); Calcium 9.2 mg/dL (7.8-10.44); Carbon Dioxide 29 mmol/L (23-31); Chloride 96 mmol/L (98-107); Estimated GFR-MDRD 42; Glucose 86 mg/dL (83-110); Magnesium 1.9 mg/dL (1.6-2.6); Potassium 4.3 mmol/L (3.5-5.1); Sodium 133 mmol/L (136-145)
[2019-11-10 05:18] LABS: #Basophils 0.1 thou/uL (0.0-0.2); #Lymphocytes 0.9 thou/uL (1.20-3.40); #Monocytes 0.4 thou/uL (0.11-0.59); #Neutrophils 2.6 thou/uL (1.40-6.50); %Basophils 1.6 % (0.0-1.0); %Eosinophils 0.4 % (0.0-10.0); %Lymphocytes 22.6 % (21.0-51.0); %Monocytes 10.1 % (0.0-10.0); %Neutrophils 65.3 % (42.0-75.0); Elliptocytes SLIGHT = 2-5 cells (100X) (0-1/hpf); Hemoglobin 8.6 g/dL (12.0-16.0); MDiff Complete? YES; Macrocytosis SLIGHT = 6-15 cells (100X) (0-5/hpf); Mean Corpuscular HGB CONC 31.6 g/dL (32.0-36.0); Mean Corpuscular Hemoglobin 31.9 pg (27.0-31.0); Platelet Clumps SLIGHT; Platelet Count 119 thou/uL (130-400); Platelet Morphology Comment Appears Decreased; RBC Distribution Width 14.2 % (11.5-14.5); Red Blood Cell (RBC) Count 2.71 mill/uL (4.20-5.40); Target Cells SLIGHT = 2-5 cells (100X) (0-1/hpf)
[2019-11-10] MEDS: hydrALAZINE 10 MG TAB PO SCH ×2 (05:38→15:21)
[2019-11-10] MEDS ORDERED: Spironolactone 25 MG TAB PO SCH ×2 (08:00→13:00)
[2019-11-10] MEDS: Sulfameth/Trimethoprim DS 800-160mg TAB PO SCH ×2 (08:09→21:40)
[2019-11-10] MEDS: Isosorbide Mononitrate (ER) 30 MG TAB PO SCH (08:09)
[2019-11-10] MEDS: Gabapentin 100 MG CAP PO SCH ×2 (08:09→21:39)
[2019-11-10] MEDS: Empagliflozin 25 MG TAB PO SCH (08:10)
[2019-11-10] MEDS: Magnesium Oxide 400 MG TAB PO SCH ×2 (08:10→21:40)
[2019-11-10] MEDS: Aspirin 81 mg Enteric Coated Tablet PO SCH (08:10)
[2019-11-10] MEDS: Bumetanide 1 MG TAB PO SCH (08:10)
[2019-11-10] MEDS: Doxycycline 100 MG CAP PO SCH ×2 (08:10→21:40)
[2019-11-10] MEDS: Famotidine 20 MG TAB PO SCH (08:10)
[2019-11-10] MEDS: Carvedilol 6.25 MG TAB PO SCH ×2 (08:10→18:02)
--- NOTE | 2019-11-10 08:40 | PRG ---
DATE OF SERVICE: 11/09/2019 This is from [facility]. SUBJECTIVE: Ms. Carmen Smallwood did not have a very good day. She started getting nausea sometime during the day, afterwards she felt worse and worse. This morning, she threw up four times. This is new to her. Upon reviewing, clindamycin was started. The nausea and vomiting correlated with clindamycin. She also said that she had nausea and vomiting with other past medication. However, she said that she is breathing easy and that she does not feel edematous at all. REVIEW OF SYSTEMS: GENERAL: There is no fever, chills, or productive cough. HEENT: There is no changing in vision, hearing, or swallowing. PULMONARY: She is breathing easy. GI: Please see HPI. : She is able to urinate on her own. MUSCULOSKELETAL: She does not complain of joint pains. INTEGUMENT: She does not report any new skin breakdown. NEUROLOGIC: There are no focal deficits or weaknesses. MEDICATIONS: Her current cardiac medications include; 1. Aspirin 81 mg daily. 2. Atorvastatin 80 mg p.o. at bedtime. 3. Carvedilol 6.25 mg twice a day. 4. Zetia 10 mg each night. 5. Hydralazine 10 mg q.8 hours. 6. Isosorbide mononitrate 30 mg daily. 7. Magnesium oxide 800 mg twice a day. Telemetry was reviewed. There was no concerning arrhythmia. There were long periods of time that she was depending on A pacing. PHYSICAL EXAMINATION: VITAL SIGNS: Her current vitals are heart rate 64, blood pressure 118/58. Her I 's and O's are negative 260 mL out. GENERAL: She is alert and conversational, not as comfortable as yesterday because she is feeling nauseated. HEENT: Showed EOMI. Oropharynx has moist mucosa. NECK: JVP is about 10 cm. PULMONARY: She has good air movement bilaterally and clear to auscultation bilaterally. CARDIAC: Regular rate and rhythm, normal S1 and S2, there is 2/6 holosystolic murmur at the apex with radiation to the left axilla, there is 1/6 diastolic murmur at the right lower sternal border, there is 2/6 crescendo decrescendo murmur at the right upper sternal border; consequently she has combination of mitral regurgitation, aortic regurgitation, and aortic stenosis. ABDOMEN; soft, non-tender, + bowel sounds LE: minimal edema of left leg to left foot; this is improved. LABORATORY DATA: Her laboratory value showed that sodium 133, potassium 4.5, BUN 16, creatinine 1.38. Her BNP is still elevated at 4233.6, that is actually decreased from yesterday and is a huge decrease from the original admission value of 7830.8. ASSESSMENT: 74-year-old lady with ischemic cardiomyopathy, is recovering. However, clindamycin has caused this lady's nausea and vomiting. She likely resides in [place] [employer] stage C and also [place] heart Association class III heart failure with reduced ejection fraction due to ischemic cardiomyopathy. Atrial pacing is now providing her a basal rate of at least 60 beats per minute. She seems to be doing well with this. Today, we will focus on removing the offending agent that is causing her nausea and vomiting and finding a good regimen for her going home. Please see the following for recommendations. RECOMMENDATIONS: 1. Change torsemide 20 mg daily to Bumex 1 mg twice a day. 2. Please add on spironolactone 25 mg daily, tomorrow we will consider increasing carvedilol. 3. We will continue to monitor how she does with Farxiga. This could be a really good medication for her. If she does well on this regimen and nausea and vomiting stopped, there is a chance she can go home tomorrow, at the latest Tuesday. 4. Will inform Dr. Clements about patient not tolerating clindamycin and ask for an alternative It has been a pleasure taking care of Ms. Carmen Smallwood. If you have any questions, please give me a call. Job ID: [id number] [facility]
--- NOTE | 2019-11-10 12:41 | PDOC.HOSPP ---
- Subjective Encounter Date: 11/10/19 - Objective Vital Signs & Weight: Vital Signs (12 hours) Temp Pulse Resp BP Pulse Ox 11/10/19 11:47 98.0 F 67 16 105/51 L 94 L 11/10/19 08:10 96 11/10/19 08:04 97.6 F 66 14 104/51 L 96 11/10/19 03:55 98.1 F 65 18 115/58 L 95 Weight Admit Weight 184 lb 8 oz Weight 168 lb 4.8 oz I&O: 11/09/19 11/10/19 11/11/19 06:59 06:59 06:59 Intake Total 1440 1277 Output Total 1700 2100 Balance -260 823 Result Diagrams: 11/10/19 04:18 11/10/19 04:18 Additional Labs: Accuchecks 11/10/19 11/09/19 11/09/19 06:02 20:37 16:47 POC Glucose 96 120 H 119 H Hospitalist ROS - Review of Systems Respiratory: denies: shortness of breath Cardiovascular: denies: chest pain - Medication Medications: Active Medications Generic Name Dose Route Start Last Admin Trade Name Freq PRN Reason Stop Dose Admin Acetaminophen 650 mg 11/03/19 17:54 11/07/19 03:12 Tylenol PO 650 mg Q4H PRN Administration Headache/Fever/Mild Pain (1-3) Acetaminophen/Codeine Phosphate 1 tab 11/07/19 15:00 11/08/19 21:06 Tylenol #3 PO 1 tab Q4H PRN Administration Mild Pain (1-3) Aspirin 81 mg 11/04/19 09:00 11/10/19 08:10 Ecotrin PO 81 mg DAILY MIC[facility]EL Administration Atorvastatin Calcium 80 mg 11/06/19 21:00 11/09/19 22:09 Lipitor PO 80 mg HS MICHAEL Administration Bumetanide 1 mg 11/09/19 16:30 11/10/19 08:10 Bumex PO 1 mg BID-AC [facility]EL Administration Carvedilol 6.25 mg 11/04/19 08:00 11/10/19 08:10 Coreg PO 6.25 mg BID-WM MIC[facility]EL Administration Doxycycline Hyclate 100 mg 11/09/19 21:00 11/10/19 08:10 Vibramycin PO 11/14/19 09:01 100 mg BID MICHAEL Administration Ezetimibe 10 mg 11/04/19 21:00 11/09/19 22:10 Zetia PO 10 mg HS MICHAEL Administration Famotidine 20 mg 11/09/19 09:00 11/10/19 08:10 Pepcid PO 20 mg DAILY [facility] Administration Gabapentin 200 mg 11/04/19 09:00 11/10/19 08:09 Neurontin PO 200 mg BID [facility] Administration Hydralazine HCl 10 mg 11/07/19 06:00 11/10/19 05:38 Apresoline PO 10 mg Q8HR [facility] Administration Insulin Glargine 15 units/ 0.15 mls @ 0 mls/hr 11/04/19 21:00 11/09/19 22:10 Miscellaneous Medication SC 0.15 mls HS [facility]HAEL Administration Insulin Human Lispro 0 units 11/03/19 17:54 11/08/19 07:12 Humalog SC 2 unit .MODERATE SLIDING SC PRN Administration Moderate Correctional Scale Isosorbide Mononitrate 30 mg 11/07/19 09:00 11/10/19 08:09 Imdur Er PO 30 mg DAILY [facility] Administration Magnesium Oxide 400 mg 11/06/19 21:00 11/10/19 08:10 Magnesium Oxide PO 400 mg BID [facility] Administration Miscellaneous Medication 25 mg 11/08/19 09:00 11/10/19 08:10 Jardiance PO 25 mg DAILY [facility] Administration Ondansetron HCl 4 mg 11/03/19 17:54 11/09/19 08:03 Zofran Odt PO 4 mg Q6H PRN Administration Nausea/Vomiting Simethicone 80 mg 11/08/19 16:16 11/08/19 16:52 Mylicon Chewable PO 80 mg PCHS PRN Administration Gas Pain Spironolactone 12.5 mg 11/10/19 08:00 11/10/19 08:10 Aldactone PO 12.5 mg QAM-WM [facility]EL Administration Trimethoprim/Sulfamethoxazole 1 tab 11/05/19 21:00 11/10/19 08:09 Bactrim Ds PO 11/10/19 21:01 1 tab BID [facility]EL Administration - Exam General Appearance: awake alert ENT: normocephalic atraumatic Neck: supple Heart: RRR Respiratory: normal chest expansion, no tachypnea Extremities: no cyanosis Neurological: cranial nerve grossly intact, no new deficit Hosp A/P - Plan Hosp A/P (1) Acute on chronic heart failure Code(s): I50.9 - HEART FAILURE, UNSPECIFIED Status: Acute (2) UTI (urinary tract infection) Status: Acute (3) Chest pain Code(s): R07.9 - CHEST PAIN, UNSPECIFIED Status: Acute (4) HTN (hypertension) Code(s): I10 - ESSENTIAL (PRIMARY) HYPERTENSION Status: Chronic (5) DMII (diabetes mellitus, type 2) Status: Chronic Qualifiers: 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 Aldactone and carvedilolhas been increased. The patient is not a candidate for FADIA or ARB due to renal artery stenosis. EF is more depressed than the prior echo according to cardiology.
--- NOTE | 2019-11-10 12:43 | PDOC.CPN ---
- Subjective Date: 11/10/19 Time: 12:45 Interval history: The pt seen and examined. No overnight events. No cardiac complaints. - Objective Allergies/Adverse Reactions: Allergies Allergy/AdvReac Type Severity Reaction Status Date / Time tramadol Allergy Intermediate Nausea Verified 11/03/19 19:38 Penicillins Allergy Rash Verified 11/03/19 19:38 Visit Medications: Current Medications Acetaminophen (Tylenol) 650 mg PO Q4H PRN PRN Reason: Headache/Fever/Mild Pain (1-3) Last Admin: 11/07/19 03:12 Dose: 650 mg Acetaminophen/Codeine Phosphate (Tylenol #3) 1 tab PO Q4H PRN PRN Reason: Mild Pain (1-3) Last Admin: 11/08/19 21:06 Dose: 1 tab Acetaminophen/Codeine Phosphate (Tylenol #3) 2 tab PO Q4H PRN PRN Reason: Moderate Pain (4-6) Aspirin (Ecotrin) 81 mg PO DAILY [facility] Last Admin: 11/10/19 08:10 Dose: 81 mg Atorvastatin Calcium (Lipitor) 80 mg PO [facility] Last Admin: 11/09/19 22:09 Dose: 80 mg Bumetanide (Bumex) 1 mg PO BID-AC [facility] Last Admin: 11/10/19 08:10 Dose: 1 mg Carvedilol (Coreg) 6.25 mg PO BID-WM [facility] Last Admin: 11/10/19 08:10 Dose: 6.25 mg Dextrose/Water (Dextrose 50%) 25 gm SLOW IVP PRN PRN PRN Reason: Hypoglycemia Doxycycline Hyclate (Vibramycin) 100 mg PO BID [facility] Stop: 11/14/19 09:01 Last Admin: 11/10/19 08:10 Dose: 100 mg Ezetimibe (Zetia) 10 mg PO [facility] Last Admin: 11/09/19 22:10 Dose: 10 mg Famotidine (Pepcid) 20 mg PO DAILY [facility] Last Admin: 11/10/19 08:10 Dose: 20 mg Gabapentin (Neurontin) 200 mg PO BID [facility] Last Admin: 11/10/19 08:09 Dose: 200 mg Glucagon (Glucagon) 1 mg IM PRN PRN PRN Reason: Hypoglycemia Hydralazine HCl (Apresoline) 10 mg SLOW IVP Q4H PRN PRN Reason: SBP > 180 and HR < 70 Hydralazine HCl (Apresoline) 10 mg PO Q8HR [facility] Last Admin: 11/10/19 05:38 Dose: 10 mg Dextrose/Water (D5w) 1,000 mls @ 0 mls/hr IV .Q0M PRN PRN Reason: Hypoglycemia Insulin Glargine 15 units/ (Miscellaneous Medication) 0.15 mls @ 0 mls/hr SC HS [facility] Last Admin: 11/09/19 22:10 Dose: 0.15 mls Insulin Human Lispro (Humalog) 0 units SC .MODERATE SLIDING SC PRN PRN Reason: Moderate Correctional Scale Last Admin: 11/08/19 07:12 Dose: 2 unit Insulin Human Lispro (Humalog) 0 units SC .BEDTIME SLIDING SC PRN PRN Reason: Bedtime Correctional Scale Isosorbide Mononitrate (Imdur Er) 30 mg PO DAILY [facility] Last Admin: 11/10/19 08:09 Dose: 30 mg Labetalol HCl (Normodyne) 20 mg SLOW IVP Q4H PRN PRN Reason: SBP > 180 and HR >/= 70 Magnesium Oxide (Magnesium Oxide) 400 mg PO BID [facility] Last Admin: 11/10/19 08:10 Dose: 400 mg Miscellaneous Medication (Jardiance) 25 mg PO DAILY [facility] Last Admin: 11/10/19 08:10 Dose: 25 mg Nitroglycerin (Nitrostat) 0.4 mg PO Q5MIN PRN PRN Reason: Chest Pain Ondansetron HCl (Zofran Odt) 4 mg PO Q6H PRN PRN Reason: Nausea/Vomiting Last Admin: 11/09/19 08:03 Dose: 4 mg Ondansetron HCl (Zofran) 4 mg IVP Q6H PRN PRN Reason: Nausea/Vomiting Simethicone (Mylicon Chewable) 80 mg PO PCHS PRN PRN Reason: Gas Pain Last Admin: 11/08/19 16:52 Dose: 80 mg Sodium Chloride (Flush - Normal Saline) 10 ml IVF PRN PRN PRN Reason: Saline Flush Spironolactone (Aldactone) 12.5 mg PO QAM-WM [facility] Last Admin: 11/10/19 08:10 Dose: 12.5 mg Trimethoprim/Sulfamethoxazole (Bactrim Ds) 1 tab PO BID [facility] Stop: 11/10/19 21:01 Last Admin: 11/10/19 08:09 Dose: 1 tab Vital Signs & Weight: Vital Signs Temp Pulse Resp BP Pulse Ox 11/10/19 11:47 98.0 F 67 16 105/51 L 94 L 11/10/19 08:10 96 11/10/19 08:04 97.6 F 66 14 104/51 L 96 11/10/19 03:55 98.1 F 65 18 115/58 L 95 Admit Weight 184 lb 8 oz Weight 168 lb 4.8 oz - Physical Exam General: alert & oriented x3 HEENT: mucus membranes moist Neck: supple neck Cardiac: regular rate and rhythm, S1/S2 Lungs: clear to auscultation Neuro: cranial nerve 2-12 intact - Labs Result Diagrams: 11/10/19 04:18 11/10/19 04:18 Troponin/CKMB CK-MB (CK-2) 2.0 ng/mL (0-6.6) 11/03/19 15:01 Troponin I 0.149 ng/mL (< 0.028) H 11/03/19 21:22 - Telemetry Sinus rhythms and dysrhythmias: sinus rhythm - Assessment/Plan Assessment/Plan: 1. Acute on chronic combined HF exacerbation with EF 10-15% and grade II dd (EF 20-25% and grade III dd in 07/2019) - BNP today was > 6900; stable with RA; On Jardiance 25mg (original order was Farxiga 10mg qd), spironolactone 25 mg qd, and Coreg; Entresto has been on hold since she was in rehab due to hypotenstion and renal insuff.; appreciate Dr ibrahim's input 2. PVD (with bilat subclavian stent in 2017, BMS to Rt distal common prox and externa iliac artery in 09/2018 and s/p Rt Fem suprageniculate popliteal artery bypass in 09/2018) and with hx of Rt BKA in 09/2019 - Wound vac to Rt BKA; No Plavix due to anemia 3. Ischemic CMY with hx of AICD in 2017 and upgrade from single to dual chamber on 11/07/2019 4. KB on CKD - unchanged 5. Severe CAD with s/p CABG x 4 in 2003 - Not felt to be a candidate for further intervention or surgery.on Coreg, ASA and Statin 6. HTN - stable 7. HLD - on Statin 8. DM type 2 9. Hx of Lt in 2016 10. mod-severe with RAMON 1.21 sq cm on 11/08/2019 (1.1cm in 07/2019) MAR reviewed * Echo on 11/08/2019 with EF 10-15%, grade II dd, mod LAE, severe ABIGAIL, mild MR, mild AR, mod with RAMON 1.21sq cm, severe TR, and mild [place] Pt. seen and eval. by me. I agree with the A/P by the TILE CLASSIFIER. appreciate Dr. Ibrahim's input. He has increased the lower rate on the pacemaker to 70bpm to increase the C.O. She says that she feels better.
[2019-11-10] MEDS ORDERED: Carvedilol 3.125 MG TAB PO SCH (13:00)
[2019-11-10] MEDS: Ezetimibe 10 MG TAB PO SCH (21:40)
[2019-11-10] MEDS: Insulin Glargine 15 UNITS in Pre-Filled Syringe 1 EACH SC SCH (21:40)
[2019-11-10] MEDS: Atorvastatin Calcium 40 MG TAB PO SCH (21:40)
[2019-11-11] MEDS: hydrALAZINE 10 MG TAB PO SCH ×3 (01:24→15:30)
[2019-11-11 04:39] LABS: #Basophils 0.1 thou/uL (0.0-0.2); #Lymphocytes 1.1 thou/uL (1.20-3.40); #Monocytes 0.4 thou/uL (0.11-0.59); %Basophils 1.4 % (0.0-1.0); %Eosinophils 0.5 % (0.0-10.0); %Lymphocytes 30.3 % (21.0-51.0); %Neutrophils 56.7 % (42.0-75.0); Mean Corpuscular HGB CONC 29.9 g/dL (32.0-36.0); Mean Corpuscular Hemoglobin 30.4 pg (27.0-31.0); Mean Platelet Volume 8.7 fL (7.4-10.4); Platelet Count 154 thou/uL (130-400); RBC Distribution Width 14.5 % (11.5-14.5); Red Blood Cell (RBC) Count 2.95 mill/uL (4.20-5.40); White Blood Cell (WBC) Count 3.6 thou/uL (4.8-10.8)
[2019-11-11 04:57] LABS: Anion Gap 12 mmol/L (10-20); BUN (Urea Nitrogen) 17 mg/dL (9.8-20.1); Calc. Creatinine Clearance 38 mL/min (70-130); Calcium 9.4 mg/dL (7.8-10.44); Carbon Dioxide 29 mmol/L (23-31); Chloride 96 mmol/L (98-107); Estimated GFR-MDRD 39; Glucose 67 mg/dL (83-110); Magnesium 2.1 mg/dL (1.6-2.6); Potassium 4.4 mmol/L (3.5-5.1); Sodium 133 mmol/L (136-145)
--- NOTE | 2019-11-11 06:25 | PRG ---
DATE OF SERVICE: 11/10/2019 This is [facility]ing Service. SUBJECTIVE: Ms. Smallwood had a better day. After stopping clindamycin, her nausea and vomiting stopped. She is able to tolerate food and do better. She has a more energy level. She is able to sleep without orthopnea or PND. REVIEW OF SYSTEMS: GENERAL: There is no fever, chills or productive cough. HEENT: There is no change in vision, hearing or swallowing. PULMONARY: She is breathing easy. CARDIAC: There is no complaint of chest pain, palpitations or syncope. GI: She is now able to eat. : She is able to urinate well. MUSCULOSKELETAL: She does not complain of joint pains. INTEGUMENT: There is no new skin breakdown. NEUROLOGIC: There are no new focal deficits or weaknesses. MEDICATIONS: Her cardiac medications include, 1. Aspirin 81 mg daily. 2. Atorvastatin 80 mg at bedtime. 3. Carvedilol at 6.25 mg twice per day. 4. Zetia, which is ezetimibe, 10 mg daily. 5. Hydralazine 10 mg q.8 hours. 6. Isosorbide mononitrate 30 mg daily. 7. Magnesium oxide 800 mg twice per day. 8. Jardiance 25 mg daily. 9. Spironolactone 12.5 mg daily. 10. Bumex 1 mg twice a day. Telemetry is reviewed. There is combination of sinus rhythm and paced rhythm. There is no apparent ventricular tachycardia. PHYSICAL EXAMINATION: VITAL SIGNS: Heart rate 66 and blood pressure 104/51. GENERAL: The patient looks well, is alert, conversational, reclining comfortably in bed. She is conversational. She is not short of breath. HEENT: EOMI. Oropharynx has moist mucosa. NECK: Her JVP is about 9 cm. PULMONARY: She is clear to auscultation bilaterally. There are no crackles. CARDIAC: Regular rate and rhythm with normal S1 and S2. There is 2/6 holosystolic murmur at apex with radiation to the left axilla. There is 1/6 diastolic murmur at the right lower sternal border. There is 2/6 crescendo-decrescendo murmur in the right upper sternal border. There is also 3/6 holosystolic murmur at the left upper sternal border, so she has a combination of mitral regurgitation, tricuspid regurgitation, aortic regurgitation and aortic stenosis. ABDOMEN: Soft and nontender. Positive bowel sounds. EXTREMITIES: Lower extremity, she has a right BKA. Her left lower leg is without edema and is warm and well perfused. LABORATORY DATA: Her laboratory values from this morning are; Chemistry shows sodium of 133, holding steady; potassium of 4.3; chloride of 96 ; BUN of 16; creatinine of 1.46; magnesium 1.9. Echocardiogram was reviewed by me. The echocardiogram was done on November 08, 2019. - Left ventricular inner diameter diastole is 6.4 cm. - Left ventricular ejection fraction is approximately 12%. - There is moderate aortic regurgitation. - There is moderate aortic stenosis - There is moderate mitral regurgitation. - There is diastolic dysfunction with very slowed peak myocardial relaxation velocity e' of 4.5. - Her right ventricle is mildly dilated, but has normal right ventricular function. - There is severe tricuspid regurgitation with tricuspid valve gradient about 46 mmHg. PROCEDURE: AICD & dual chamber pacemaker interrogation and programed Her device was interrogated, interpreted, and also programmed. - It is a [employer], model number Evera XT [id number] with serial number of [id number], it has atrial lead and a right ventricular lead. - Current setting AAIR-DDDR mode with lower rate OD 60 beats per minute. - She is A-sensed ns V-sensed at 78.6% of time and A-paced V-sensed at 21.4% of time. Due to severe cardiomyopathy with low ejection fraction, a pacemaker tuning was done. The patient was given a choice of a lower rate limit of 60 and also a lower rate limit of 75. For 3 times in a row, she felt much better at lower rate of 75. She said that she could breathe easier, and she was a little bit more energetic and better concentration at 75. She wants to have the slightly higher rate. So I left her at 75 beats per minute as a lower rate limit. ASSESSMENT: 74-year-old lady resides in [place] Heart [employer] likely stage D and [place] Heart Association class III heart failure with reduced ejection fraction. It is ischemic cardiomyopathy with combination of systolic and diastolic functions. She also has multiple valvular lesions. Right now, we are aiming to restore her function as much as possible overall to give her a good quality of life. The treatment at this point is more palliative in nature. However, I will maximize whatever I can to give her best chance. So, the best chance for her heart to stay as intact as possible and some chance of reverse remodel, will be carvedilol, SGLT2 inhibitor such as Farxiga and spironolactone. I will try to maximize these 3. She also has a rising creatinine. Since the BUN is not rising, this rise in creatinine is likely due to Bactrim. So, she has a mild Bactrim-induced nephropathy. Please see the following for my recommendations. RECOMMENDATIONS: 1. Increase carvedilol to 12.5 mg twice a day, hold if systolic blood pressure less than 90. 2. Increase spironolactone to 25 mg daily, hold if systolic blood pressure is less than 90. 3. Stop Bumex 1 mg twice a day. 4. Could convert to torsemide 20 mg daily, this should be sufficient. 5. Continue with aspirin. 6. Continue with atorvastatin 80 mg at bedtime. 7. As an outpatient, consider using Farxiga. This is a study drug. The hospital has substituted Jardiance. If it is not possible, then stay with Jardiance, but if it is possible, convert to Farxiga 10 mg daily. If the patient does well on this regimen, she can go home. It has been a pleasure taking care of Ms. Carmen Smallwood. If you have any questions, please give me a call. Job ID: [id number] MTDD
[2019-11-11] MEDS ORDERED: Spironolactone 25 MG TAB PO SCH (08:00)
[2019-11-11] MEDS: Carvedilol 6.25 MG TAB PO SCH ×2 (08:34→16:51)
[2019-11-11] MEDS: Magnesium Oxide 400 MG TAB PO SCH (08:35)
[2019-11-11] MEDS: Doxycycline 100 MG CAP PO SCH (08:35)
[2019-11-11] MEDS: Famotidine 20 MG TAB PO SCH (08:36)
[2019-11-11] MEDS: Isosorbide Mononitrate (ER) 30 MG TAB PO SCH (08:36)
[2019-11-11] MEDS: Empagliflozin 25 MG TAB PO SCH (08:36)
[2019-11-11] MEDS: Gabapentin 100 MG CAP PO SCH (08:36)
[2019-11-11] MEDS: Aspirin 81 mg Enteric Coated Tablet PO SCH (08:36)
[2019-11-11] MEDS ORDERED: Torsemide 20 MG TAB PO SCH (09:00)
--- NOTE | 2019-11-11 11:14 | PRG ---
DATE OF SERVICE: 11/11/2019 This is [facility] Consulting Service. SUBJECTIVE: Ms. Carmen Smallwood had an excellent day. She was resting well. She is breathing easy. She is feeling stronger. She does not have any chest pressure, pain or any symptoms that caused her admission. She is ready to go home. REVIEW OF SYSTEMS: GENERAL: There is no fever, chills, or productive cough. HEENT: There is no change in vision, hearing, or swallowing. PULMONARY: Please see HPI. CARDIAC: There is no chest pain, palpitations, syncope. GI: She is tolerating food well. : She is urinating well. MUSCULOSKELETAL: There is no new joint pains or back pains. INTEGUMENT: There are no new skin breakdown. NEUROLOGIC: There are no new focal deficits and weaknesses. Telemetry was reviewed. She is mainly paced at 75 beats per minute. There is very rare occasional PVC, thus there are no concerning arrhythmias. PHYSICAL EXAMINATION: VITAL SIGNS: Her latest vitals are heart rate 75, blood pressure 114/57, so this is slight improvement from yesterday. GENERAL: She is alert and conversational, sitting up in bed comfortably eating her breakfast. HEENT: Show EOMI. Oropharynx with moist mucosa. NECK: Her JVP is about 9 or 10 cm high. LUNGS: There is good air movement bilaterally. Clear to auscultation bilaterally. She has been having clear lungs continuously for days now. CARDIAC: Regular rate and rhythm. Normal S1, S2. There is a 2/6 holosystolic murmur at the apex with radiation to the left axilla. There is 2/6 holosystolic murmur at left upper sternal border. There is a 1/6 diastolic murmur at the right lower sternal border. There is also 2/6 crescendo decrescendo as well as systolic murmur at right upper sternal border. She has mini valvular murmur that include mitral regurgitation, aortic regurgitation, aortic stenosis, and also tricuspid regurgitation. ABDOMEN: Soft, nontender with positive bowel sounds. EXTREMITIES: Her right lower extremity has BKA. There is no edema. Her left lower extremity without edema and warm and well perfused. LABORATORY DATA: Her laboratory values this morning are sodium 133, potassium 4.4, this holding steady, BUN 76, creatinine 1.57. Creatinine is increased again slightly, but the BUN is holding steady. This is most likely due to because her BUN does not have an increased, but rather a decrease. ASSESSMENT: A 74-year-old lady is well compensated and euvolemic and is ready to be discharged. She resides in [place] Heart Association stage D and [place] Heart Association class III heart failure with reduced ejection fraction. She has both systolic and diastolic dysfunction. It is ischemic cardiomyopathy. We will aim to maximize her chances of holding her heart steady with carvedilol, Farxiga, or Jardiance and spironolactone. She will also need to continue with isosorbide mononitrate and hydralazine, torsemide will be reduced to just 4 times a week. This will occur on Tuesday, Tuesday, and Tuesday. I will ask the heart failure clinic to schedule her for followup. Please see the following for my recommendations for today. RECOMMENDATIONS: 1. Change torsemide 20 mg to four times per week only. That is on Tuesday, Tuesday, Tuesday and Tuesday. 2. She will need weekly labs as outpatient followup. Her medication will likely need to be titrated on a weekly basis. There should be CBC, basic metabolic panel, magnesium, and BNP. These need to be followed weekly. 3. I will ask staff to schedule her to be seen in followup in heart failure clinic. It has been a pleasure taking care of Mrs. Smallwood. If you have questions, please give me a call. Job ID: [id number]
[2019-11-11 11:31] VITALS: TEMP 98.5
--- NOTE | 2019-11-11 14:31 | PDOC.CPN ---
- Subjective Date: 11/11/19 Time: 14:33 Interval history: The pt seen and examined. No overnight events. No cardiac complaints - Objective Allergies/Adverse Reactions: Allergies Allergy/AdvReac Type Severity Reaction Status Date / Time tramadol Allergy Intermediate Nausea Verified 11/03/19 19:38 Penicillins Allergy Rash Verified 11/03/19 19:38 Visit Medications: Current Medications Acetaminophen (Tylenol) 650 mg PO Q4H PRN PRN Reason: Headache/Fever/Mild Pain (1-3) Last Admin: 11/07/19 03:12 Dose: 650 mg Acetaminophen/Codeine Phosphate (Tylenol #3) 1 tab PO Q4H PRN PRN Reason: Mild Pain (1-3) Last Admin: 11/08/19 21:06 Dose: 1 tab Acetaminophen/Codeine Phosphate (Tylenol #3) 2 tab PO Q4H PRN PRN Reason: Moderate Pain (4-6) Aspirin (Ecotrin) 81 mg PO DAILY [facility] Last Admin: 11/11/19 08:36 Dose: 81 mg Atorvastatin Calcium (Lipitor) 80 mg PO [facility] Last Admin: 11/10/19 21:40 Dose: 80 mg Carvedilol (Coreg) 12.5 mg PO BID-[facility] Last Admin: 11/11/19 08:34 Dose: 12.5 mg Dextrose/Water (Dextrose 50%) 25 gm SLOW IVP PRN PRN PRN Reason: Hypoglycemia Doxycycline Hyclate (Vibramycin) 100 mg PO BID [facility] Stop: 11/14/19 09:01 Last Admin: 11/11/19 08:35 Dose: 100 mg Ezetimibe (Zetia) 10 mg PO [facility] Last Admin: 11/10/19 21:40 Dose: 10 mg Famotidine (Pepcid) 20 mg PO DAILY [facility] Last Admin: 11/11/19 08:36 Dose: 20 mg Gabapentin (Neurontin) 200 mg PO BID [facility] Last Admin: 11/11/19 08:36 Dose: 200 mg Glucagon (Glucagon) 1 mg IM PRN PRN PRN Reason: Hypoglycemia Hydralazine HCl (Apresoline) 10 mg SLOW IVP Q4H PRN PRN Reason: SBP > 180 and HR < 70 Hydralazine HCl (Apresoline) 10 mg PO Q8HR [facility] Last Admin: 11/11/19 05:32 Dose: 10 mg Dextrose/Water (D5w) 1,000 mls @ 0 mls/hr IV .Q0M PRN PRN Reason: Hypoglycemia Insulin Glargine 15 units/ (Miscellaneous Medication) 0.15 mls @ 0 mls/hr SC [facility] Last Admin: 11/10/19 21:40 Dose: 0.15 mls Insulin Human Lispro (Humalog) 0 units SC .MODERATE SLIDING SC PRN PRN Reason: Moderate Correctional Scale Last Admin: 11/08/19 07:12 Dose: 2 unit Insulin Human Lispro (Humalog) 0 units SC .BEDTIME SLIDING SC PRN PRN Reason: Bedtime Correctional Scale Isosorbide Mononitrate (Imdur Er) 30 mg PO DAILY [facility] Last Admin: 11/11/19 08:36 Dose: 30 mg Labetalol HCl (Normodyne) 20 mg SLOW IVP Q4H PRN PRN Reason: SBP > 180 and HR >/= 70 Magnesium Oxide (Magnesium Oxide) 400 mg PO BID [facility] Last Admin: 11/11/19 08:35 Dose: 400 mg Miscellaneous Medication (Jardiance) 25 mg PO DAILY [facility] Last Admin: 11/11/19 08:36 Dose: 25 mg Nitroglycerin (Nitrostat) 0.4 mg PO Q5MIN PRN PRN Reason: Chest Pain Ondansetron HCl (Zofran Odt) 4 mg PO Q6H PRN PRN Reason: Nausea/Vomiting Last Admin: 11/09/19 08:03 Dose: 4 mg Ondansetron HCl (Zofran) 4 mg IVP Q6H PRN PRN Reason: Nausea/Vomiting Simethicone (Mylicon Chewable) 80 mg PO P[facility]S PRN PRN Reason: Gas Pain Last Admin: 11/08/19 16:52 Dose: 80 mg Sodium Chloride (Flush - Normal Saline) 10 ml IVF PRN PRN PRN Reason: Saline Flush Last Admin: 11/11/19 08:36 Dose: 10 ml Spironolactone (Aldactone) 25 mg PO QAM-[facility] Last Admin: 11/11/19 08:35 Dose: 25 mg Torsemide (Demadex) 20 mg PO DAILY [facility] Last Admin: 11/11/19 08:35 Dose: 20 mg Vital Signs & Weight: Vital Signs Temp Pulse Resp BP Pulse Ox 11/11/19 11:10 98.5 F 75 16 100/47 L 96 11/11/19 07:15 98.2 F 75 16 114/57 L 96 11/11/19 04:00 98.7 F 75 18 113/56 L 95 11/11/19 03:55 98 Admit Weight 184 lb 8 oz Weight 168 lb 3.2 oz - Physical Exam General: alert & oriented x3 HEENT: mucus membranes moist Neck: supple neck Cardiac: regular rate and rhythm, S1/S2 Lungs: decreased breath sounds Neuro: cranial nerve 2-12 intact Extremities: other: (1-2+ pitting edema to LLE) - Labs Result Diagrams: 11/11/19 04:12 11/11/19 04:12 Troponin/CKMB CK-MB (CK-2) 2.0 ng/mL (0-6.6) 11/03/19 15:01 Troponin I 0.149 ng/mL (< 0.028) H 11/03/19 21:22 - Telemetry Sinus rhythms and dysrhythmias: other (A paced) - Assessment/Plan Assessment/Plan: 1. Acute on chronic combined HF exacerbation with EF 10-15% and grade II dd (EF 20-25% and grade III dd in 07/2019) - BNP today was > 6900; stable with RA; On Jardiance 25mg (original order was Farxiga 10mg qd), spironolactone 25 mg qd, and Coreg; On Torsemide 20mg 4 times/wk (Mon, Wed, Fri, and Sat); Entresto has been on hold since she was in rehab due to hypotenstion and renal insuff.; appreciate Dr toribio's input 2. PVD (with bilat subclavian stent in 2017, BMS to Rt distal common prox and externa iliac artery in 09/2018 and s/p Rt Fem suprageniculate popliteal artery bypass in 09/2018) and with hx of Rt BKA in 09/2019 - Wound vac to Rt BKA; No Plavix due to anemia 3. Ischemic CMY with hx of AICD in 2017 and upgrade from single to dual chamber on 11/07/2019 4. KB on CKD - unchanged 5. Severe CAD with s/p CABG x 4 in 2003 - Not felt to be a candidate for further intervention or surgery.on Coreg, ASA and Statin 6. HTN - stable 7. HLD - on Statin 8. DM type 2 9. Hx of Lt in 2016 10. mod-severe with RAMON 1.21 sq cm on 11/08/2019 (1.1cm in 07/2019) MAR reviewed * Echo on 11/08/2019 with EF 10-15%, grade II dd, mod LAE, severe ABIGAIL, mild MR, mild AR, mod with RAMON 1.21sq cm, severe TR, and mild WV * The pt will f/u with CHF clinic weekly. The pt also f/u with Dr More' office in [address] Clements's office as schedule.
--- NOTE | 2019-11-11 14:50 | PDOC.HOSPP ---
- Subjective Encounter Date: 11/11/19 Subjective: No new complaints. - Objective Vital Signs & Weight: Vital Signs (12 hours) Temp Pulse Resp BP Pulse Ox 11/11/19 11:10 98.5 F 75 16 100/47 L 96 11/11/19 07:15 98.2 F 75 16 114/57 L 96 11/11/19 04:00 98.7 F 75 18 113/56 L 95 11/11/19 03:55 98 Weight Admit Weight 184 lb 8 oz Weight 168 lb 3.2 oz I&O: 11/10/19 11/11/19 11/12/19 06:59 06:59 06:59 Intake Total 1277 1720 Output Total 2100 1700 Balance -823 20 Result Diagrams: 11/11/19 04:12 11/11/19 04:12 Additional Labs: Accuchecks 11/11/19 11/11/19 11/10/19 10:48 05:43 20:28 POC Glucose 130 H 93 141 H 11/10/19 18:11 POC Glucose 87 Hospitalist ROS - Medication Medications: Active Medications Generic Name Dose Route Start Last Admin Trade Name Freq PRN Reason Stop Dose Admin Acetaminophen 650 mg 11/03/19 17:54 11/07/19 03:12 Tylenol PO 650 mg Q4H PRN Administration Headache/Fever/Mild Pain (1-3) Acetaminophen/Codeine Phosphate 1 tab 11/07/19 15:00 11/08/19 21:06 Tylenol #3 PO 1 tab Q4H PRN Administration Mild Pain (1-3) Aspirin 81 mg 11/04/19 09:00 11/11/19 08:36 Ecotrin PO 81 mg DAILY MICHAEL Administration Atorvastatin Calcium 80 mg 11/06/19 21:00 11/10/19 21:40 Lipitor PO 80 mg HS MICHAEL Administration Carvedilol 12.5 mg 11/10/19 17:00 11/11/19 08:34 Coreg PO 12.5 mg BID-WM MICHAEL Administration Doxycycline Hyclate 100 mg 11/09/19 21:00 11/11/19 08:35 Vibramycin PO 11/14/19 09:01 100 mg BID MICHAEL Administration Ezetimibe 10 mg 11/04/19 21:00 11/10/19 21:40 Zetia PO 10 mg HS MICHAEL Administration Famotidine 20 mg 11/09/19 09:00 11/11/19 08:36 Pepcid PO 20 mg DAILY MICHAEL Administration Gabapentin 200 mg 11/04/19 09:00 11/11/19 08:36 Neurontin PO 200 mg BID MICHAEL Administration Hydralazine HCl 10 mg 11/07/19 06:00 11/11/19 05:32 Apresoline PO 10 mg Q8HR MICHAEL Administration Insulin Glargine 15 units/ 0.15 mls @ 0 mls/hr 11/04/19 21:00 11/10/19 21:40 Miscellaneous Medication SC 0.15 mls HS MICHAEL Administration Insulin Human Lispro 0 units 11/03/19 17:54 11/08/19 07:12 Humalog SC 2 unit .MODERATE SLIDING SC PRN Administration Moderate Correctional Scale Isosorbide Mononitrate 30 mg 11/07/19 09:00 11/11/19 08:36 Imdur Er PO 30 mg DAILY MICHAEL Administration Magnesium Oxide 400 mg 11/06/19 21:00 11/11/19 08:35 Magnesium Oxide PO 400 mg BID MICHAEL Administration Miscellaneous Medication 25 mg 11/08/19 09:00 11/11/19 08:36 Jardiance PO 25 mg DAILY MICHAEL Administration Ondansetron HCl 4 mg 11/03/19 17:54 11/09/19 08:03 Zofran Odt PO 4 mg Q6H PRN Administration Nausea/Vomiting Simethicone 80 mg 11/08/19 16:16 11/08/19 16:52 Mylicon Chewable PO 80 mg PCHS PRN Administration Gas Pain Sodium Chloride 10 ml 11/07/19 15:00 11/11/19 08:36 Flush - Normal Saline IVF 10 ml PRN PRN Administration Saline Flush Spironolactone 25 mg 11/11/19 08:00 11/11/19 08:35 Aldactone PO 25 mg QAM-WM MICHAEL Administration Torsemide 20 mg 11/11/19 09:00 11/11/19 08:35 Demadex PO 20 mg DAILY MICHAEL Administration - Exam General Appearance: awake alert ENT: normocephalic atraumatic Neck: supple Heart: RRR Respiratory: normal chest expansion, no tachypnea Neurological: cranial nerve grossly intact, no focal deficits Hosp A/P - Plan Hosp A/P (1) Acute on chronic heart failure Code(s): I50.9 - HEART FAILURE, UNSPECIFIED Status: Acute (2) UTI (urinary tract infection) Status: Acute (3) Chest pain Code(s): R07.9 - CHEST PAIN, UNSPECIFIED Status: Acute (4) HTN (hypertension) Code(s): I10 - ESSENTIAL (PRIMARY) HYPERTENSION Status: Chronic (5) DMII (diabetes mellitus, type 2) Status: Chronic Qualifiers: Diabetes mellitus detention insulin use: with rat exterminator use (6) S/P ICD (internal cardiac defibrillator) procedure Status: Acute - Plan Continue torsemide, Aldactone, and carvedilol per cardiology recommendations. The patient is not a candidate for FADIA or ARB due to renal artery stenosis. EF is more depressed than the prior echo according to cardiology. Awaiting surgical evaluation of her BKA wound that was reportedly dehiscing per wound care nurse.
[2019-11-11 15:28] VITALS: BP 109/53
--- NOTE | 2019-11-11 21:54 | DIS ---
DATE OF ADMISSION: 11/03/2019 DATE OF DISCHARGE: 11/11/2019 DISCHARGE DIAGNOSES: 1. [id number] heart failure with reduced ejection fraction. 2. Urinary tract infection. 3. Hypertension. 4. Diabetes. 5. Mellitus type 2. 6. Chest pain. 7. Peripheral vascular disease. 8. Acute kidney [id number] kidney disease. 9. Severe coronary artery disease, status post coronary artery bypass grafting. 10. Tghheyut-vx-refhph aortic stenosis. DISCHARGE MEDICATIONS: 1. Hydralazine 10 mg orally every 8 hours. 2. Atorvastatin 80 mg orally nightly. 3. Aspirin 81 mg orally daily. 4. Carvedilol 12.5 mg orally twice daily. 5. Jardiance 25 mg orally daily. 6. Imdur extended release 30 mg orally daily. 7. Simethicone 80 mg orally with meals as needed for gas pain. 8. Aldactone 25 mg orally daily. 9. Torsemide 20 mg orally daily. 10. Ezetimibe 10 mg orally nightly. 11. Gabapentin 200 mg orally twice daily. 12. Tylenol 3 one tablet q.4 hours as needed for pain. 13. Insulin aspart 10 units subcu t.i.d. with meals. 14. Insulin glargine 20 units subcu at night. HISTORY OF PRESENT ILLNESS AND HOSPITAL COURSE: The patient is a 74-year-old female with past medical history of coronary artery disease, heart failure with reduced ejection fraction, peripheral arterial disease, diabetes mellitus, hypertension, chronic kidney disease, and aortic stenosis who presented to the hospital with complaints of chest pressure and shortness of breath. Initial workup indicated exacerbation of congestive heart failure. Cardiology evaluated the patient and stated that the patient was evaluated before for her chest pain and she was not found to be a surgical candidate or candidate for PCI and medical therapy was recommended. The patient's ejection fraction in July was 10% to 15%. She had an AICD single-chamber placed at that time. She was also noted to have [id number] aortic valve disease. She has been experiencing increasing dyspnea and lower extremity swelling since then. The patient was managed with IV diuresis and her medications were optimized by Dr. Patrice apodaca heart failure specialist. The regimen was adjusted throughout her hospital stay and was finalized to the medication list listed above. FADIA inhibitors or Entresto were not initiated as they are contraindicated because of the patient's renal artery stenosis. The patient's condition improved throughout her hospital stay and on the day of discharge, she was saturating well on room air without evidence of decompensation. Job ID: [id number]
== END 2019-11-11 17:27 | disposition home health service (06) | DRG 226 ==
LOC: ERS 14:19 → 2NO 18:15
PROVIDERS: ADMIT Internal Medicine; ATTEND Internal Medicine
PROC: 0JH608Z Insertion of Defibrillator Generator into Chest Subcutaneous Tissue and Fascia, Open Approach (ICD-10-PCS; principal; 2019-11-07)
PROC: 02HK3KZ Insertion of Defibrillator Lead into Right Ventricle, Percutaneous Approach (ICD-10-PCS; 2019-11-07)
PROC: 02H63KZ Insertion of Defibrillator Lead into Right Atrium, Percutaneous Approach (ICD-10-PCS; 2019-11-07)
DX: I13.0 Hypertensive heart and chronic kidney disease with heart failure and stage 1 through stage 4 chronic kidney disease, or unspecified chronic kidney disease (principal); I50.23 Acute on chronic systolic (congestive) heart failure; N39.0 Urinary tract infection, site not specified; N17.9 Acute kidney failure, unspecified; I25.810 Atherosclerosis of coronary artery bypass graft(s) without angina pectoris; N18.9 Chronic kidney disease, unspecified; E11.22 Type 2 diabetes mellitus with diabetic chronic kidney disease; I73.9 Peripheral vascular disease, unspecified; I25.10 Atherosclerotic heart disease of native coronary artery without angina pectoris; E78.5 Hyperlipidemia, unspecified; I08.3 Combined rheumatic disorders of mitral, aortic and tricuspid valves; I25.5 Ischemic cardiomyopathy; E78.00 Pure hypercholesterolemia, unspecified; K21.9 Gastro-esophageal reflux disease without esophagitis; I49.5 Sick sinus syndrome; E66.9 Obesity, unspecified; Z79.4 Long term (current) use of insulin; Z95.810 Presence of automatic (implantable) cardiac defibrillator; Z89.511 Acquired absence of right leg below knee; Z90.710 Acquired absence of both cervix and uterus; Z88.0 Allergy status to penicillin; Z95.5 Presence of coronary angioplasty implant and graft; Z98.51 Tubal ligation status; Z68.28 Body mass index [BMI] 28.0-28.9, adult
CPT/HCPCS: 33214; 36005; 36415; 36416; 71045; 75820; 76770; 76942; 80048; 80053; 80061; 81001; 82553; 83690; 83735; 83880; 84484; 85025; 86850; 86900; 86901; 87086; 87186; 87635; 93005; 93010; 93306; 93641; 94760; 96372; 96374; C1721; C1898; J1580; J1650; J1815; J1940; J2250; J2270; J2704; J3010; J3490; Q0162; Q9967; U0003

== ENCOUNTER 2019-11-12 12:26 | Inpatient (IN) | payer MEDICARE, MEDICAID ==
[~2019-11-12 12:26] MED LIST changes: +Heparin 1,000 UNITS/ML VIAL ONE; -Iopamidol-370 76% 500 ML 1 ML ONE
--- NOTE | 2019-11-12 13:19 | RAD ---
CHEST 1 VIEW: Date: 11/12/2019 HISTORY: Dyspnea. COMPARISON: 11/07/2019 and 11/03/2019. FINDINGS: Stable cardiomegaly with left-sided ICD and postop midline sternotomy. No confluent pneumonia, overt edema, or pleural effusion. IMPRESSION: Cardiomegaly without other significant acute process. Stable from prior exam. POS: RRE
[2019-11-12 14:00] LABS: Bilirubin Negative (Negative); Blood, Urine Negative (Negative); Clarity Clear (Clear); Glucose, Urine (Dipstick) Greater than 1000 mg/dL (Negative); Leukocyte Negative Leu/uL (Negative); Nitrite Negative (Negative); Protein, Urine (Dipstick) 20 mg/dL (Neg-Trace); Urobilinogen Greater than 12 mg/dL (Less than 2)
[2019-11-12 14:29] LABS: Hemoglobin 9.8 g/dL (12.0-16.0); Mean Corpuscular HGB CONC 30.6 g/dL (32.0-36.0); Mean Corpuscular Hemoglobin 30.8 pg (27.0-31.0); RBC Distribution Width 15.4 % (11.5-14.5); Red Blood Cell (RBC) Count 3.17 mill/uL (4.20-5.40)
[2019-11-12 14:30] LABS: ALT (SGPT) 16 U/L (8-55); AST (SGOT) 42 U/L (5-34); Albumin 3.7 g/dL (3.4-4.8); Alkaline Phosphatase 118 U/L (40-110); Anion Gap 19 mmol/L (10-20); BUN (Urea Nitrogen) 21 mg/dL (9.8-20.1); Bilirubin, Total 2.3 mg/dL (0.2-1.2); CK (CPK) 207 U/L (29-168); Calc. Creatinine Clearance 0 mL/min (70-130); Calcium 9.5 mg/dL (7.8-10.44); Carbon Dioxide 22 mmol/L (23-31); Chloride 99 mmol/L (98-107); Estimated GFR-MDRD 34; Globulin 3.9 g/dL (2.4-3.5); Glucose 143 mg/dL (83-110); Lipase 24 U/L (8-78); Potassium 5.5 mmol/L (3.5-5.1); Protein, Total 7.6 g/dL (6.0-8.3); Sodium 134 mmol/L (136-145)
[2019-11-12 14:37] LABS: CKMB 1.3 ng/mL (0-6.6)
[2019-11-12 14:47] LABS: Anisocytosis SLIGHT = 6-15 cells (100X) (0-5/hpf); Lymphocytes 18 % (21-51); MDiff Complete? YES; Macrocytosis SLIGHT = 6-15 cells (100X) (0-5/hpf); Monocytes 4 % (0-10); Neutrophil 78 % (42-75); Ovalocytes SLIGHT = 2-5 cells (100X) (0-1/hpf); Platelet Clumps MODERATE; Platelet Morphology Comment PLT clumps seen-ADEQ; Poikilocytosis SLIGHT = 6-15 cells (100X) (0-5/hpf); Polychromasia SLIGHT = 2-3 cells (100X) (0-2/hpf); Schistocytes SLIGHT = 2-5 cells (100X) (0-1/hpf); Spherocytes SLIGHT = 1-5 cells (100X) (None Seen); White Blood Cell (WBC) Count 4.6 thou/uL (4.8-10.8)
[2019-11-12] MEDS ORDERED: Dextrose 50% Abboject 50 ML SYRINGE ONE (14:55)
[2019-11-12] MEDS ORDERED: Insulin Regular 300 UNITS/3 ML VIAL ONE (14:55)
[2019-11-12] MEDS ORDERED: Albuterol Sulfate 2.5 mg/0.5 ml Neb ONE (15:02)
[2019-11-12] MEDS ORDERED: Albuterol Sulfate 2.5 mg/3 ml Neb ONE (15:02)
[2019-11-12] MEDS ORDERED: Dextrose 50% Abboject 50 ML SYRINGE SLOW IVP PRN (15:42)
[2019-11-12] MEDS ORDERED: Dextrose 5% in Water 1,000 ML IV PRN (15:42)
[2019-11-12] MEDS ORDERED: HumaLOG 300 UNITS/3 ML VIAL SC PRN (15:42)
[2019-11-12] MEDS ORDERED: Bumetanide 1 MG/4 ML VIAL IVP SCH (16:15)
[2019-11-12] MEDS ORDERED: Milrinone Lactate/D5W 20 MG in Premix Bag 1 BAG IVPB SCH ×4 (17:00→20:14)
[2019-11-12] MEDS ORDERED: Ondansetron PF 4 MG/2 ML Vial IVP PRN (17:51)
[2019-11-12] MEDS: Carvedilol 6.25 MG TAB PO SCH (18:07)
[2019-11-12] MEDS ORDERED: Senokot S 8.6-50 MG TAB PO PRN (18:22)
[2019-11-12 19:11] LABS: Anion Gap 15 mmol/L (10-20); BUN (Urea Nitrogen) 21 mg/dL (9.8-20.1); Calc. Creatinine Clearance 34 mL/min (70-130); Calcium 9.7 mg/dL (7.8-10.44); Carbon Dioxide 28 mmol/L (23-31); Chloride 98 mmol/L (98-107); Estimated GFR-MDRD 35; Glucose 87 mg/dL (83-110); Potassium 4.7 mmol/L (3.5-5.1); Sodium 136 mmol/L (136-145)
[2019-11-12 19:31] LABS: Troponin I 0.407 ng/mL (< 0.028)
--- NOTE | 2019-11-12 19:57 | HP ---
CHIEF COMPLAINT: Shortness of breath and chest pain. HISTORY OF PRESENT ILLNESS: The patient is a 74-year-old female who was just recently discharged from the hospital on 11/10, who comes in back to the hospital with shortness of breath and chest pain. The patient states that when she went home, she was feeling well. That night, she had one leg of [employer] chicken with some ketchup that night, which was yesterday night. She was unable to lie down flat. She then started having some chest tightness on the way to the ER today. She stated that she was unable to lie flat and slept in a recliner yesterday. She has been having shortness of breath all day today and worsening with chest tightness today. Denies any fevers or chills. She has some nausea and had some vomiting about 7 times. Denies any diarrhea or any abdominal pain. The patient also states that she did not take her medications all day today and yesterday after she was discharged home, she did not take her medications since the patient was unable to fill her prescriptions due to the pharmacy being closed. REVIEW OF SYSTEMS: All negative except for the ones mentioned above in the HPI. PAST MEDICAL HISTORY: She has history of diabetes type 2, insulin-dependent; CAD, is inoperable; systolic heart failure, EF of 10% to 15%. She also has hypercholesterolemia, peripheral vascular disease, hypertension. PAST SURGICAL HISTORY: She has had a right [id number] amputation, coronary artery bypass graft, hysterectomy, AICD. ALLERGIES: SHE IS ALLERGIC TO TRAMADOL, BASICALLY CAUSED HER TO FEEL SICK OR NAUSEATED. PENICILLIN CAUSE HER TO SWELL. SOCIAL HISTORY: She lives with her brother. She is a former smoker. She used to smoke half a pack for about 15 years. She denies any alcohol use or any illicit drug use. Brother is Efren Gill, who makes decisions for her. She is a full code. FAMILY HISTORY: Significant for diabetes in her mother as well as grandmother who had leukemia; father who had high blood pressure. MEDICATIONS: She is on Levemir 20 units daily, gabapentin 200 mg daily, torsemide 20 mg a day, carvedilol 6.25 mg twice a day, Lipitor 40 mg daily, aspirin 81 mg daily. She is also on hydralazine 10 mg every 8 hours, simethicone 80 mg as needed, doxycycline 100 mg twice a day, spironolactone 25 mg daily. PHYSICAL EXAMINATION: VITAL SIGNS: As of the following; temperature of 98.8, respirations 16, heart rate of 75, blood pressure 120/60. GENERAL: She is awake, alert, and oriented x3. Does not appear in distress. CV: S1, S2 present. She has mild JVD. LUNGS: Clear to auscultation. No rhonchi or wheezes noted. ABDOMEN: Soft. No tenderness upon palpation. However, she has some mild epigastric pain upon palpation. Bowel sounds are present x2. EXTREMITIES: Lower extremity, right has [id number] amputation. She has a dressing on. No edema noted to right or left leg. NEUROVASCULAR: No focal deficits noted. SKIN: No cuts, lesions, or bruises noted. LABORATORY RESULTS: As of the following; WBCs of 4.6, hemoglobin of 9.8, hematocrit of 31.9, platelets appeared to be elevated. Chemistry; sodium of 134, potassium of 5.5, BUN of 21, and creatinine of 1.78. Troponin of 0.231. BNP of 7179.9. Urine showed just elevated amount of glucose. The patient also had a chest x-ray, which showed some cardiomegaly without any acute abnormalities. ASSESSMENT AND PLAN: The patient is a 74-year-old female, who presents to the hospital with shortness of breath. 1. Shortness of breath, possible acute on chronic heart failure. The patient has significant orthopnea. However, her physical examination appears to be pretty normal. She does have an elevated BNP in the setting of chronic kidney disease. I did speak with heart failure physician who recommended starting the patient on Milrinone. The patient's pacemaker was recently adjusted for better contractility per the heart failure physician. I will start her on the Milrinone. I will also consult Cardiology. I will trend her troponins. She continue to still have chest pain; however, based on per notes, she has inoperable heart disease. Her EKG, per my evaluation, had some T-wave changes, however, this is not new, she has had this before. We will continue to monitor. We will hold off on the isosorbide per recommendations and also hydrochlorothiazide. 2. Hyperkalemia. We will recheck BMP. 3. Elevated liver function tests. This is most likely secondary to possible worsening heart failure. 4. Diabetes. We will continue her insulin and check Accu-Cheks before meals and at bedtime. 5. Chronic kidney disease stage 3. We will continue to monitor. 6. Deep venous thrombosis prophylaxis. We will put the patient on subcu Lovenox. Job ID: [id number]
[2019-11-12] MEDS ORDERED: Enoxaparin Sodium 80 MG/0.8 ML SYRINGE SC SCH (20:00)
[2019-11-12] MEDS: Ezetimibe 10 MG TAB PO SCH (21:23)
[2019-11-12] MEDS: Gabapentin 100 MG CAP PO SCH (21:23)
[2019-11-12] MEDS: Atorvastatin Calcium 40 MG TAB PO SCH (21:23)
[2019-11-12] MEDS: Insulin Glargine 20 UNITS in Pre-Filled Syringe SC SCH (21:24)
[2019-11-12 22:34] LABS: Troponin I 0.668 ng/mL (< 0.028)
[2019-11-13 04:54] LABS: #Basophils 0.1 thou/uL (0.0-0.2); #Monocytes 0.7 thou/uL (0.11-0.59); #Neutrophils 2.8 thou/uL (1.40-6.50); %Basophils 1.5 % (0.0-1.0); %Eosinophils 0.5 % (0.0-10.0); %Lymphocytes 21.4 % (21.0-51.0); %Monocytes 14.4 % (0.0-10.0); %Neutrophils 62.1 % (42.0-75.0); Hemoglobin 8.5 g/dL (12.0-16.0); Mean Corpuscular HGB CONC 30.4 g/dL (32.0-36.0); Mean Corpuscular Hemoglobin 31.1 pg (27.0-31.0); Mean Platelet Volume 10.1 fL (7.4-10.4); RBC Distribution Width 16.1 % (11.5-14.5); Red Blood Cell (RBC) Count 2.75 mill/uL (4.20-5.40); White Blood Cell (WBC) Count 4.6 thou/uL (4.8-10.8)
[2019-11-13 04:57] LABS: Anion Gap 12 mmol/L (10-20); BUN (Urea Nitrogen) 21 mg/dL (9.8-20.1); Calc. Creatinine Clearance 35 mL/min (70-130); Calcium 9.2 mg/dL (7.8-10.44); Carbon Dioxide 27 mmol/L (23-31); Chloride 98 mmol/L (98-107); Estimated GFR-MDRD 37; Glucose 116 mg/dL (83-110); Potassium 4.4 mmol/L (3.5-5.1); Sodium 133 mmol/L (136-145)
[2019-11-13] MEDS ORDERED: Spironolactone 25 MG TAB PO SCH (08:00)
[2019-11-13] MEDS ORDERED: Milrinone Lactate/D5W 20 MG in Premix Bag 1 BAG IVPB SCH (08:53)
[2019-11-13] MEDS ORDERED: Enoxaparin Sodium 80 MG/0.8 ML SYRINGE SC SCH (09:00)
[2019-11-13] MEDS ORDERED: Isosorbide Mononitrate (ER) 30 MG TAB PO SCH (09:00)
[2019-11-13] MEDS ORDERED: Furosemide 40 MG/4 ML VIAL SLOW IVP SCH (09:00)
[2019-11-13] MEDS ORDERED: Enoxaparin Sodium 40 MG/0.4 ML SYRINGE SC SCH (09:00)
[2019-11-13] MEDS: Gabapentin 100 MG CAP PO SCH ×2 (09:58→20:28)
[2019-11-13] MEDS: Carvedilol 6.25 MG TAB PO SCH ×2 (09:59→17:45)
[2019-11-13] MEDS: Aspirin 81 mg Enteric Coated Tablet PO SCH (09:59)
[2019-11-13 14:30] VITALS: BMI 28.1
--- NOTE | 2019-11-13 14:57 | PDOC.HOSPP ---
- Subjective Encounter Date: 11/13/19 Encounter Time: 10:00 Subjective: pt up in bed states she feels much better - Objective Vital Signs & Weight: Vital Signs (12 hours) Temp Pulse Resp BP Pulse Ox 11/13/19 11:07 98.6 F 76 13 97/62 98 11/13/19 08:00 96.1 F L 74 18 113/55 L 98 11/13/19 03:08 98.2 F 75 18 106/50 L 97 Weight Admit Weight 163 lb 5 oz Weight 164 lb I&O: 11/12/19 11/13/19 11/14/19 06:59 06:59 06:59 Intake Total 28 Balance 28 Result Diagrams: 11/13/19 04:12 11/13/19 04:12 Additional Labs: Accuchecks 11/13/19 11/13/19 11/12/19 10:53 05:59 20:47 POC Glucose 153 H 125 H 164 H 11/12/19 11/12/19 15:36 15:06 POC Glucose 220 H 143 H Hospitalist ROS - Review of Systems Cardiovascular: denies: chest pain, palpitations, orthopnea, paroxysmal noc. dyspnea, edema, light headedness, other Gastrointestinal: denies: nausea, vomiting, abdominal pain, diarrhea, constipation, melena, hematochezia, other - Medication Medications: Active Medications Generic Name Dose Route Start Last Admin Trade Name Freq PRN Reason Stop Dose Admin Aspirin 81 mg 11/13/19 09:00 11/13/19 09:59 Ecotrin PO 81 mg DAILY MICHAEL Administration Atorvastatin Calcium 80 mg 11/12/19 21:00 11/12/19 21:23 Lipitor PO 80 mg HS MICHAEL Administration Carvedilol 12.5 mg 11/12/19 17:00 11/13/19 09:59 Coreg PO 12.5 mg BID-WM MICHAEL Administration Ezetimibe 10 mg 11/12/19 21:00 11/12/19 21:23 Zetia PO 10 mg HS MICHAEL Administration Gabapentin 200 mg 11/12/19 21:00 11/13/19 09:58 Neurontin PO 200 mg BID MICHAEL Administration Insulin Glargine 20 units/ 0.2 mls @ 0 mls/hr 11/12/19 21:00 11/12/19 21:24 Miscellaneous Medication SC 0.2 mls HS MICHAEL Administration Sodium Chloride 10 ml 11/12/19 21:00 11/13/19 09:59 Flush - Normal Saline IVF 10 ml Q12HR MICHAEL Administration - Exam Heart: negative: RRR, no murmur, no gallops, no rubs, normal peripheral pulses, irregular, diminshed peripheral pulses, murmur present, II/IV, III/IV Respiratory: negative: CTAB, no wheezes, no rales, no ronchi, normal chest expansion, no tachypnea, normal percussion, rales, rhonchi, tachypneic, wheezes Gastrointestinal: negative: soft, non-tender, non-distended, normal bowel sounds , no palpable masses, no hepatomegaly, no splenomegaly, no bruit, no guarding, no rigidity, tender to palpation, distended, diminished bowl sounds, voluntary guarding Extremities: 1+ LE edema. negative: no cyanosis, no clubbing, no edema, 2+ LE edema, clubbing Extremities - other findings: right lower ext amputation Hosp A/P (1) Nausea & vomiting Code(s): R11.2 - NAUSEA WITH VOMITING, UNSPECIFIED Status: Acute (2) Acute on chronic combined systolic and diastolic ACC/AHA stage C congestive heart failure Code(s): I50.43 - ACUTE ON CHRONIC COMBINED SYSTOLIC AND DIASTOLIC HRT FAIL Status: Acute (3) Chest pain Code(s): R07.9 - CHEST PAIN, UNSPECIFIED Status: Acute (4) Anemia, normocytic normochromic Code(s): D64.9 - ANEMIA, UNSPECIFIED Status: Chronic (5) CAD (coronary artery disease) Code(s): I25.10 - ATHSCL HEART DISEASE OF [place] CORONARY ARTERY W/O ANG PCTRS Status: Chronic Qualifiers: Coronary Disease-Associated Artery/Lesion type: bypass graft (6) KB (acute kidney injury) Code(s): N17.9 - ACUTE KIDNEY FAILURE, UNSPECIFIED Status: Acute - Plan kb on ckd stage 3, her creatinine is improving. will continue milirone at 0.25mcg/kg/hr per heart failure. will continue her lovenox for elevated trops and chest pain. will monitor her hh. pt states she feels much better. Started her on lasix will monitor creatinine.
--- NOTE | 2019-11-13 16:39 | PDOC.CPN ---
- Subjective Date: 11/13/19 Time: 08:00 Interval history: The pt seen and examined. No overnight events. No cardiac complaints. - Objective Allergies/Adverse Reactions: Allergies Allergy/AdvReac Type Severity Reaction Status Date / Time tramadol Allergy Intermediate Nausea Verified 11/12/19 17:34 Penicillins Allergy Rash Verified 11/12/19 17:34 Visit Medications: Current Medications Acetaminophen (Tylenol) 650 mg PO Q4H PRN PRN Reason: Headache/Fever/Mild Pain (1-3) Aspirin (Ecotrin) 81 mg PO DAILY [facility] Last Admin: 11/13/19 09:59 Dose: 81 mg Atorvastatin Calcium (Lipitor) 80 mg PO [facility] Last Admin: 11/12/19 21:23 Dose: 80 mg Carvedilol (Coreg) 12.5 mg PO BID-[facility] Last Admin: 11/13/19 09:59 Dose: 12.5 mg Dextrose/Water (Dextrose 50%) 25 gm SLOW IVP PRN PRN PRN Reason: Hypoglycemia Ezetimibe (Zetia) 10 mg PO [facility] Last Admin: 11/12/19 21:23 Dose: 10 mg Enoxaparin Sodium (Lovenox) 70 mg SC DAILY [facility] Gabapentin (Neurontin) 200 mg PO BID [facility] Last Admin: 11/13/19 09:58 Dose: 200 mg Glucagon (Glucagon) 1 mg IM PRN PRN PRN Reason: Hypoglycemia Dextrose/Water (D5w) 1,000 mls @ 0 mls/hr IV .Q0M PRN PRN Reason: Hypoglycemia Insulin Glargine 20 units/ (Miscellaneous Medication) 0.2 mls @ 0 mls/hr SC [facility] Last Admin: 11/12/19 21:24 Dose: 0.2 mls Milrinone Lactate/Dextrose 20 (mg/ Device) 100 mls @ 5.55 mls/hr IVPB INF [facility]; Protocol Insulin Human Lispro (Humalog) 0 units SC .MILD SLIDING SCALE PRN PRN Reason: Mild Correctional Scale Miscellaneous Medication (Pharmacy To Dose) 1 each IVPB ONE PRN PRN Reason: Pharmacy to dose Stop: 12/12/19 19:51 Ondansetron HCl (Zofran) 4 mg IVP Q6H PRN PRN Reason: Nausea/Vomiting Senna/Docusate Sodium (Senokot S) 2 tab PO BID PRN PRN Reason: Constipation Sodium Chloride (Flush - Normal Saline) 10 ml IVF Q12HR MICHAEL Last Admin: 11/13/19 09:59 Dose: 10 ml Sodium Chloride (Flush - Normal Saline) 10 ml IVF PRN PRN PRN Reason: Saline Flush Vital Signs & Weight: Vital Signs Temp Pulse Pulse Pulse Resp BP BP 11/13/19 14:05 74 76 104/54 L 117/58 L 11/13/19 11:07 98.6 F 76 13 11/13/19 08:00 96.1 F L 74 18 BP Pulse Ox 11/13/19 14:05 11/13/19 11:07 97/62 98 11/13/19 08:00 113/55 L 98 Admit Weight 163 lb 5 oz Weight 164 lb - Physical Exam General: alert & oriented x3 HEENT: mucus membranes moist Neck: supple neck Cardiac: regular rate and rhythm, S1/S2 Lungs: clear to auscultation, decreased breath sounds Neuro: cranial nerve 2-12 intact Extremities: no edema - Labs Result Diagrams: 11/13/19 04:12 11/13/19 04:12 Troponin/CKMB CK-MB (CK-2) 1.3 ng/mL (0-6.6) 11/12/19 12:44 Troponin I 0.668 ng/mL (< 0.028) H* 11/12/19 21:44 - Telemetry Sinus rhythms and dysrhythmias: other (A paced) - Assessment/Plan Assessment/Plan: 1. Nausea & vomiting - improved; she can tolerate solid diet this AM 2. 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 Ischemic CMY with hx of AICD upgrade from single to dual chamber on 2019 5. KB on CKD stage 3 -unchanged 6. Severe CAD with s/p CABG x4 in 2004 - No more CP this AM; on Coreg, ASA, statin; not good candidate for further intervention or surgery 7. HTN - stable 8. HLD - on Statin 9. DM type 2 10. Hx of Lt in 2015 11. Anemia 12. Mod-severe with RAMON 1.21 sq cm on 11/08/2019 (1.1cm in 07/2019) MAR reviewed Pt. seen and eval. by me. I agree with the A/P by the RECREATION ATTENDANT SUPERVISOR. When Ms. Smallwood was d/ c''d on Tuesday she was unable to get her medications as her pharmacy was closed.. This is likely the etiology of her CHF relapse. In addition she did not watch her diet. I suspect some of her episodes of N/V are related to her CHF. She is back to her baseline with the addition of the milrinone.. She may need this exterminator helper if she continues to haveCHF exacerbations. danny
[2019-11-13 17:54] LABS: Troponin I 1.192 ng/mL (< 0.028)
[2019-11-13] MEDS: Ezetimibe 10 MG TAB PO SCH (20:27)
[2019-11-13] MEDS: Atorvastatin Calcium 40 MG TAB PO SCH (20:27)
[2019-11-13] MEDS: Insulin Glargine 20 UNITS in Pre-Filled Syringe SC SCH (20:28)
[2019-11-14 04:30] LABS: #Lymphocytes 1.2 thou/uL (1.20-3.40); #Monocytes 0.4 thou/uL (0.11-0.59); #Neutrophils 2.5 thou/uL (1.40-6.50); %Basophils 0.8 % (0.0-1.0); %Eosinophils 0.5 % (0.0-10.0); %Monocytes 9.2 % (0.0-10.0); %Neutrophils 61.5 % (42.0-75.0); Hemoglobin 8.3 g/dL (12.0-16.0); Mean Corpuscular Hemoglobin 32.6 pg (27.0-31.0); Mean Platelet Volume 10.8 fL (7.4-10.4); RBC Distribution Width 16.3 % (11.5-14.5); Red Blood Cell (RBC) Count 2.55 mill/uL (4.20-5.40); White Blood Cell (WBC) Count 4.1 thou/uL (4.8-10.8)
[2019-11-14 04:37] LABS: Anion Gap 13 mmol/L (10-20); BUN (Urea Nitrogen) 19 mg/dL (9.8-20.1); Calc. Creatinine Clearance 38 mL/min (70-130); Calcium 9.1 mg/dL (7.8-10.44); Carbon Dioxide 27 mmol/L (23-31); Chloride 96 mmol/L (98-107); Estimated GFR-MDRD 40; Sodium 132 mmol/L (136-145)
[2019-11-14 04:43] LABS: Glucose 58 mg/dL (83-110)
[2019-11-14 04:47] LABS: ALT (SGPT) 11 U/L (8-55); AST (SGOT) 25 U/L (5-34); Albumin 3.3 g/dL (3.4-4.8); Alkaline Phosphatase 104 U/L (40-110); Bilirubin, Direct 1.3 mg/dL (0.1-0.3); Protein, Total 6.7 g/dL (6.0-8.3)
[2019-11-14] MEDS: Carvedilol 6.25 MG TAB PO SCH ×2 (08:42→17:58)
[2019-11-14] MEDS: Aspirin 81 mg Enteric Coated Tablet PO SCH (08:42)
[2019-11-14] MEDS: Enoxaparin Sodium 80 MG/0.8 ML SYRINGE SC SCH (08:43)
[2019-11-14] MEDS: Gabapentin 100 MG CAP PO SCH ×2 (08:43→21:31)
[2019-11-14] MEDS ORDERED: Furosemide 40 MG/4 ML VIAL SLOW IVP SCH (09:00)
--- NOTE | 2019-11-14 09:21 | PDOC.CPN ---
- Subjective Date: 11/14/19 Time: 09:00 - Review of Systems General: denies: fever/chills, weight/appetite/sleep changes, night sweats, fatigue Respiratory: denies: cough, congestion, shortness of breath, exercise intolerance Cardiovascular: denies: chest pain, palpitation, edema, paroxysmal nocturnal dyspnea, orthopnea Gastrointestinal: denies: nausea, vomiting, diarrhea, constipation, abd pain, GI bleeding Musculoskeletal: denies: pain, tenderness, stiffness, swelling, arthritis/ arthralgias Neurological: denies: numbness, syncope, seizure, weakness - Objective Allergies/Adverse Reactions: Allergies Allergy/AdvReac Type Severity Reaction Status Date / Time tramadol Allergy Intermediate Nausea Verified 11/12/19 17:34 Penicillins Allergy Rash Verified 11/12/19 17:34 Visit Medications: Current Medications Acetaminophen (Tylenol) 650 mg PO Q4H PRN PRN Reason: Headache/Fever/Mild Pain (1-3) Aspirin (Ecotrin) 81 mg PO DAILY [facility] Last Admin: 11/14/19 08:42 Dose: 81 mg Atorvastatin Calcium (Lipitor) 80 mg PO [facility] Last Admin: 11/13/19 20:27 Dose: 80 mg Carvedilol (Coreg) 12.5 mg PO BID-[facility] Last Admin: 11/14/19 08:42 Dose: 12.5 mg Dextrose/Water (Dextrose 50%) 25 gm SLOW IVP PRN PRN PRN Reason: Hypoglycemia Ezetimibe (Zetia) 10 mg PO [facility] Last Admin: 11/13/19 20:27 Dose: 10 mg Enoxaparin Sodium (Lovenox) 70 mg SC DAILY [facility] Last Admin: 11/14/19 08:43 Dose: 70 mg Furosemide (Lasix) 40 mg PO DAILY [facility] Gabapentin (Neurontin) 200 mg PO BID [facility] Last Admin: 11/14/19 08:43 Dose: 200 mg Glucagon (Glucagon) 1 mg IM PRN PRN PRN Reason: Hypoglycemia Dextrose/Water (D5w) 1,000 mls @ 0 mls/hr IV .Q0M PRN PRN Reason: Hypoglycemia Insulin Glargine 20 units/ (Miscellaneous Medication) 0.2 mls @ 0 mls/hr SC [facility] Last Admin: 11/13/19 20:28 Dose: 0.2 mls Insulin Human Lispro (Humalog) 0 units SC .MILD SLIDING SCALE PRN PRN Reason: Mild Correctional Scale Miscellaneous Medication (Pharmacy To Dose) 1 each IVPB ONE PRN PRN Reason: Pharmacy to dose Stop: 12/12/19 19:51 Ondansetron HCl (Zofran) 4 mg IVP Q6H PRN PRN Reason: Nausea/Vomiting Senna/Docusate Sodium (Senokot S) 2 tab PO BID PRN PRN Reason: Constipation Sodium Chloride (Flush - Normal Saline) 10 ml IVF Q12HR MICHAEL Last Admin: 11/14/19 08:43 Dose: 10 ml Sodium Chloride (Flush - Normal Saline) 10 ml IVF PRN PRN PRN Reason: Saline Flush Vital Signs & Weight: Vital Signs Temp Pulse Resp BP Pulse Ox 11/14/19 08:00 99.1 F 84 16 112/55 L 96 11/14/19 03:15 98.7 F 75 18 102/49 L 96 Admit Weight 163 lb 5 oz Weight 159 lb 11.2 oz - Quality Measures Condition: Heart Failure CV meds: Beta Robi: Yes, FADIA/ARB: No (decr. renal function) - Physical Exam HEENT: mucus membranes moist, normocephaly Neck: no JVD/HJR Cardiac: regular rate and rhythm, systolic murmur (), other (pacing) Lungs: clear to auscultation, no wheezes Neuro: grossly intact Abdomen: unremarkable, active bowel sounds Extremities: no edema, other: (s/p right BKA, in dressing. Slow to heal. Wound vac will be changed.) Musculoskeletal: other (s/p right BKA) - Labs Result Diagrams: 11/14/19 03:28 11/14/19 03:28 Troponin/CKMB CK-MB (CK-2) 1.3 ng/mL (0-6.6) 11/12/19 12:44 Troponin I 1.192 ng/mL (< 0.028) H* 11/13/19 04:12 - Telemetry Sinus rhythms and dysrhythmias: other (NSR with occasional AP/VS) - Assessment/Plan Assessment/Plan: 1. Nausea & vomiting - Resolved. 2. 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 Will stop Milrinone, change lasix to po. 3. 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 Ischemic CMY with hx of AICD upgrade from single to dual chamber on 2019 5. KB on CKD stage 3 -unchanged 6. Severe CAD with s/p CABG x4 in 2003 - No more CP this AM; on Coreg, ASA, statin; not good candidate for further intervention or surgery 7. HTN - stable 8. HLD - on Statin 9. DM type 2. Was give Farxiga on the last admission. Not at this time. 10. Hx of Lt in 2015 11. Anemia 12. Mod-severe with RAMON 1.21 sq cm on 11/08/2019 (1.1cm in 07/2019) MAR reviewed
--- NOTE | 2019-11-14 14:54 | PRG ---
DATE OF SERVICE: 11/14/2019 Carmen Smallwood is hospitalized and I have been asked to see regarding her right BKA wound. The patient underwent on 10/10/2019, right below-knee amputation due to severe PAD. She is transferred to rehab. The patient was recently hospitalized, had sutures removed after being in over 3 weeks. On admission to this hospitalization, she was noted to have some separation of skin edges. Wound Care has seen her, asked me to see her. Evaluation of her wound reveals that her BKA wound is fairly well healed. There is no evidence of infection. There is skin separation leaving an open wound approximately 6 x 4 cm. It is healthy granulation with some hematoma. It appears to be superficial in the subcutaneous tissue and not deep to the fascia. I would recommend wound VAC application and follow up in office in 2 to 3 weeks. I have notified Wound Care. Please call if necessary in this hospitalization. I will see her as an outpatient. Job ID: [id number]
[2019-11-14] MEDS ORDERED: Milrinone Lactate/D5W 20 MG/100 ML BAG IVPB SCH (15:30)
[2019-11-14] MEDS: Milrinone Lactate/D5W 20 MG in Premix Bag 1 BAG IV SCH (16:19)
--- NOTE | 2019-11-14 18:48 | PQF ---
ELLIE BALLARD JAI JARRETT [id number] [facility]-295 [id number] CLINICAL DOCUMENTATION IMPROVEMENT CLARIFICATION FORM: ICD-10 Updated PLEASE DO AN ADDENDUM TO THE PROGRESS NOTE WITH ANY DOCUMENTATION UPDATES OR ADDITIONS AND CARRY THROUGH TO DC SUMMARY. THANK YOU. DATE: 11/14/2019 ATTN:DR. Charley MANRIQUE Please exercise your independent, professional judgment in responding to the clarification form. Clinical indicators are provided on the bottom of this form for your review. Please check appropriate box(s): AMI TYPE: [ ] Type 1 [place] (NSTEMI) [ ] Type 2 [place] (T2MI) secondary to: [ ] hypertension [ ] Infection [ ] severe anemia [ ] renal failure [ ] heart failure [ ] other [ ]Unstable Angina [ ] ACS [ ] Other diagnosis [ ] Unable to determine In addition, please specify: Present on Admission (POA): [ ] Yes [ ] No [ ] Unable to determine CLINICAL INDICATORS - SIGNS / SYMPTOMS / LABS / RESULTS AND LOCATION IN EMR 11/11 TROPONIN I 0.231 > 0.407 > 0.668 11/12 TROPONIN I 1.192 11/11 ED REPORT : PATIENT PRESENTS FOR DYSPNEA, INTERMITTENT CHEST PAIN DESCRIBED A PRESSURE, MIDSTERNAL RADIATING TO BOTH SHOULDERS, SHE HAS ASSOCIATED NAUSEA AND VOMITING 6/2 PN (BHIMJI) A/P : 2). CHEST PAIN 6/2 PN (ARATA) A/P: 6). SEVERE CAD W S/P CABG X 4 IN 2003, 12). MOD-SEVERE WITH RAMON 1.21 SQ CM ON 11/08/2019 RISK: FORMER SMOKER, HX CABG , CAD, HTN, ( H&P/BHIMJI) 11/11 TREATMENTS: CARDIOLOGY CONSULT (11/11) CONTINUOUS TELE MONITORING ( 11/11 - PRESENT) THANK YOU! REGGIE (This form is maintained as a part of the permanent medical record) 2014 [employer]. All Rights Reserved [email or web address] [facility]
[2019-11-14] MEDS: Ezetimibe 10 MG TAB PO SCH (21:31)
[2019-11-14] MEDS: Atorvastatin Calcium 40 MG TAB PO SCH (21:31)
[2019-11-14] MEDS: Acetaminophen 325 MG TAB PO PRN (21:31)
[2019-11-14] MEDS: Insulin Glargine 20 UNITS in Pre-Filled Syringe SC SCH (21:44)
[2019-11-15] MEDS: Carvedilol 6.25 MG TAB PO SCH ×2 (08:33→17:46)
[2019-11-15] MEDS: Enoxaparin Sodium 80 MG/0.8 ML SYRINGE SC SCH (08:34)
[2019-11-15] MEDS: Aspirin 81 mg Enteric Coated Tablet PO SCH (08:34)
[2019-11-15] MEDS: Furosemide 40 MG TAB PO SCH (08:34)
[2019-11-15] MEDS: Gabapentin 100 MG CAP PO SCH ×2 (08:34→20:41)
[2019-11-15] MEDS ORDERED: Furosemide 20 MG TAB PO SCH (09:00)
--- NOTE | 2019-11-15 09:54 | PDOC.HOSPP ---
- Subjective Encounter Date: 11/14/19 Encounter Time: 09:45 Subjective: pt up in bed feels well. - Objective Vital Signs & Weight: Vital Signs (12 hours) Temp Pulse Resp BP Pulse Ox 11/15/19 07:20 98.3 F 74 16 101/50 L 94 L 11/15/19 03:13 96.5 F L 74 18 91/53 L 96 Weight Admit Weight 163 lb 5 oz Weight 160 lb 1.6 oz I&O: 11/14/19 11/15/19 11/16/19 06:59 06:59 06:59 Intake Total 1022 486 Output Total 1850 1100 Balance -848 -014 Result Diagrams: 11/14/19 03:28 11/14/19 03:28 Additional Labs: Accuchecks 11/15/19 11/14/19 11/14/19 05:47 20:21 17:12 POC Glucose 79 148 H 106 11/14/19 11:01 POC Glucose 129 H Hospitalist ROS - Review of Systems Cardiovascular: denies: chest pain, palpitations, orthopnea, paroxysmal noc. dyspnea, edema, light headedness, other Gastrointestinal: denies: nausea, vomiting, abdominal pain, diarrhea, constipation, melena, hematochezia, other Genitourinary: denies: dysuria, frequency, incontinence, hematuria, retention, other - Medication Medications: Active Medications Generic Name Dose Route Start Last Admin Trade Name Freq PRN Reason Stop Dose Admin Acetaminophen 650 mg 11/12/19 18:22 11/14/19 21:31 Tylenol PO 650 mg Q4H PRN Administration Headache/Fever/Mild Pain (1-3) Aspirin 81 mg 11/13/19 09:00 11/15/19 08:34 Ecotrin PO 81 mg DAILY MICHAEL Administration Atorvastatin Calcium 80 mg 11/12/19 21:00 11/14/19 21:31 Lipitor PO 80 mg HS MICHAEL Administration Carvedilol 12.5 mg 11/12/19 17:00 11/15/19 08:33 Coreg PO 12.5 mg BID-WM MICHAEL Administration Ezetimibe 10 mg 11/12/19 21:00 11/14/19 21:31 Zetia PO 10 mg HS MICHAEL Administration Enoxaparin Sodium 70 mg 11/14/19 09:00 11/15/19 08:34 Lovenox SC 70 mg DAILY MICHAEL Administration Furosemide 40 mg 11/15/19 09:00 11/15/19 08:34 Lasix PO 40 mg DAILY MICHAEL Administration Gabapentin 200 mg 11/12/19 21:00 11/15/19 08:34 Neurontin PO 200 mg BID MICHAEL Administration Insulin Glargine 20 units/ 0.2 mls @ 0 mls/hr 11/12/19 21:00 11/14/19 21:44 Miscellaneous Medication SC 0.2 mls HS MICHAEL Administration Milrinone Lactate/Dextrose 20 100 mls @ 2.71 mls/hr 11/14/19 15:30 11/14/19 16:19 mg/ Device IV 100 mls INF MICHAEL Administration Protocol 0.125 MCG/KG/MIN Sodium Chloride 10 ml 11/12/19 21:00 11/15/19 08:34 Flush - Normal Saline IVF 10 ml Q12HR MICHAEL Administration - Exam Heart: negative: RRR, no murmur, no gallops, no rubs, normal peripheral pulses, irregular, diminshed peripheral pulses, murmur present, II/IV, III/IV Respiratory: negative: CTAB, no wheezes, no rales, no ronchi, normal chest expansion, no tachypnea, normal percussion, rales, rhonchi, tachypneic, wheezes Gastrointestinal: negative: soft, non-tender, non-distended, normal bowel sounds , no palpable masses, no hepatomegaly, no splenomegaly, no bruit, no guarding, no rigidity, tender to palpation, distended, diminished bowl sounds, voluntary guarding Extremities: 1+ LE edema Hosp A/P (1) Nausea & vomiting Code(s): R11.2 - NAUSEA WITH VOMITING, UNSPECIFIED Status: Acute (2) Acute on chronic combined systolic and diastolic ACC/AHA stage C congestive heart failure Code(s): I50.43 - ACUTE ON CHRONIC COMBINED SYSTOLIC AND DIASTOLIC HRT FAIL Status: Acute (3) Chest pain Code(s): R07.9 - CHEST PAIN, UNSPECIFIED Status: Acute (4) Anemia, normocytic normochromic Code(s): D64.9 - ANEMIA, UNSPECIFIED Status: Chronic (5) CAD (coronary artery disease) Code(s): I25.10 - ATHSCL HEART DISEASE OF [place] CORONARY ARTERY W/O ANG PCTRS Status: Chronic Qualifiers: Coronary Disease-Associated Artery/Lesion type: bypass graft (6) KB (acute kidney injury) Code(s): N17.9 - ACUTE KIDNEY FAILURE, UNSPECIFIED Status: Acute - Plan kb on ckd stage 3, her creatinine is improving. will continue milirone at 0.25mcg/kg/hr per heart failure. will continue her lovenox for elevated trops and chest pain. will monitor her hh. pt states she feels much better. Started her on lasix will monitor creatinine. 11/13 will continue milinorne for now. will continue lasix too. bnp ordered. will monitor renal function. will talk with cardio if ok to stop lovenox.
[2019-11-15 10:39] LABS: Anion Gap 15 mmol/L (10-20); BUN (Urea Nitrogen) 15 mg/dL (9.8-20.1); Calc. Creatinine Clearance 42 mL/min (70-130); Carbon Dioxide 24 mmol/L (23-31); Chloride 96 mmol/L (98-107); Estimated GFR-MDRD 46; Glucose 140 mg/dL (83-110); Potassium 4.2 mmol/L (3.5-5.1); Sodium 131 mmol/L (136-145)
[2019-11-15 12:27] LABS: Anisocytosis SLIGHT = 6-15 cells (100X) (0-5/hpf); Band 1 % (5-11); Hemoglobin 9.4 g/dL (12.0-16.0); Lymphocytes 19 % (21-51); MDiff Complete? YES; Macrocytosis SLIGHT = 6-15 cells (100X) (0-5/hpf); Mean Corpuscular HGB CONC 30.9 g/dL (32.0-36.0); Mean Corpuscular Hemoglobin 31.5 pg (27.0-31.0); Mean Platelet Volume 11.3 fL (7.4-10.4); Monocytes 15 % (0-10); Neutrophil 63 % (42-75); Platelet Clumps MARKED; Platelet Morphology Comment PLT clumps seen-ADEQ; Poikilocytosis MODERATE=16-30 cells (100X) (0-5/hpf); Polychromasia SLIGHT = 2-3 cells (100X) (0-2/hpf); RBC Distribution Width 17.1 % (11.5-14.5); Red Blood Cell (RBC) Count 2.98 mill/uL (4.20-5.40); Schistocytes MODERATE= 6-15 cells (100X) (0-1/hpf); White Blood Cell (WBC) Count 3.5 thou/uL (4.8-10.8)
--- NOTE | 2019-11-15 13:02 | PQF ---
ELLIE BALLARD JAI JARRETT [id number] CLINICAL DOCUMENTATION IMPROVEMENT CLARIFICATION FORM: ICD-10 Updated PLEASE DO AN ADDENDUM TO THE PROGRESS NOTE WITH ANY DOCUMENTATION UPDATES OR ADDITIONS AND CARRY THROUGH TO DC SUMMARY. THANK YOU. DATE: 11/15/2019 ATTN:DR. Charley MANRIQUE Please exercise your independent, professional judgment in responding to the clarification form. Clinical indicators are provided on the bottom of this form for your review. Please check appropriate box(s): [ ] Type 1 SC (NSTEMI) [ ] Type 2 SC (T2MI) secondary to: [ ] hypertension [ ] arrhythmia [ ] Infection [ ] severe anemia [ ] renal failure [ ] heart failure [ ] other [ ] Acute non-ischemic myocardial injury in the absence of SC [ ] Unstable Angina [ ] ACS [ ] Other: [ ] Other diagnosis [ ] Unable to determine In addition, please specify: Present on Admission (POA): [ ] Yes [ ] No [ ] Unable to determine CLINICAL INDICATORS - SIGNS / SYMPTOMS / LABS / RESULTS AND LOCATION IN EMR 11/11 TROPONIN I 0.231 > 0.407 > 0.668 11/12 TROPONIN I 1.192 11/11 ED REPORT : PATIENT PRESENTS FOR DYSPNEA, INTERMITTENT CHEST PAIN DESCRIBED A PRESSURE, MIDSTERNAL RADIATING TO BOTH SHOULDERS, SHE HAS ASSOCIATED NAUSEA AND VOMITING 6/2 PN (BHIMJI) A/P : 2). CHEST PAIN 6/2 PN (ARATA) A/P: 6). SEVERE CAD W S/P CABG X 4 IN 2003, 12). MOD-SEVERE WITH RAMON 1.21 SQ CM ON 11/08/2019 RISK: FORMER SMOKER, HX CABG , CAD ( H&P/BHIMJI) 11/11 TREATMENTS: CARDIOLOGY CONSULT (11/11) CONTINUOUS TELE MONITORING ( 11/11 - PRESENT) THANK YOU! REGGIE (This form is maintained as a part of the permanent medical record) 2014 [employer]. All Rights Reserved [email or web address] [not provided] MTDD
--- NOTE | 2019-11-15 13:10 | PQF ---
ELLIE BALLARD JAI JARRETT [id number] [facility]-295 [id number] CLINICAL DOCUMENTATION IMPROVEMENT CLARIFICATION FORM: ICD-10 Updated PLEASE DO AN ADDENDUM TO THE PROGRESS NOTE WITH ANY DOCUMENTATION UPDATES OR ADDITIONS AND CARRY THROUGH TO DC SUMMARY. THANK YOU. DATE: 11/15/2019 ATTN: DR. PINA Please exercise your independent, professional judgment in responding to the clarification form. Clinical indicators are provided on the bottom of this form for your review. Please check appropriate box(s): [ ] Type 1 [place] (NSTEMI) [ x ] Type 2 AZ (T2MI) secondary to: [ ] hypertension [ ] arrhythmia [ ] Infection [ ] severe anemia [ ] renal failure [ x ] other [ x ] Acute non-ischemic myocardial injury in the absence of [place] [ ] Unstable Angina [ ] ACS [ ] Other [ ] Other diagnosis [ ] Unable to determine In addition, please specify: Present on Admission (POA): [ x ] Yes [ ] No [ ] Unable to determine CLINICAL INDICATORS - SIGNS / SYMPTOMS / LABS / RESULTS AND LOCATION IN EMR 11/11 TROPONIN I 0.231 > 0.407 > 0.668 11/12 TROPONIN I 1.192 11/11 ED REPORT : PATIENT PRESENTS FOR DYSPNEA, INTERMITTENT CHEST PAIN DESCRIBED A PRESSURE, MIDSTERNAL RADIATING TO BOTH SHOULDERS, SHE HAS ASSOCIATED NAUSEA AND VOMITING 6/2 PN (BHIMJI) A/P : 2). CHEST PAIN 6/2 PN (ARATA) A/P: 6). SEVERE CAD W S/P CABG X 4 IN 2003, 12). MOD-SEVERE WITH RAMON 1.21 SQ CM ON 11/08/2019 RISK: FORMER SMOKER, HX CABG , CAD ( H&P/BHIMJI) 11/11 TREATMENTS: CARDIOLOGY CONSULT (11/11) CONTINUOUS TELE MONITORING ( 11/11 - PRESENT) THANK YOU! REGGIE (This form is maintained as a part of the permanent medical record) 2014 [employer]. All Rights Reserved [email or web address]
[2019-11-15] MEDS ORDERED: Simethicone Chewable 80 MG TAB PO PRN (13:11)
[2019-11-15 14:29] LABS: Troponin I 1.814 ng/mL (< 0.028)
[2019-11-15] MEDS: Milrinone Lactate/D5W 20 MG in Premix Bag 1 BAG IV SCH (14:42)
--- NOTE | 2019-11-15 15:11 | PDOC.HOSPP ---
- Subjective Encounter Date: 11/15/19 Encounter Time: 11:30 Subjective: pt up in bed no complains - Objective Vital Signs & Weight: Vital Signs (12 hours) Temp Pulse Pulse Pulse Resp BP BP 11/15/19 11:20 98.0 F 74 16 11/15/19 09:20 75 74 108/52 L 105/53 L 11/15/19 07:20 98.3 F 74 16 11/15/19 03:13 96.5 F L 74 18 BP Pulse Ox 11/15/19 11:20 106/49 L 96 11/15/19 09:20 11/15/19 07:20 101/50 L 94 L 11/15/19 03:13 91/53 L 96 Weight Admit Weight 163 lb 5 oz Weight 160 lb 1.6 oz I&O: 11/14/19 11/15/19 11/16/19 06:59 06:59 06:59 Intake Total 1022 486 Output Total 1850 1100 Balance -870 -938 Result Diagrams: 11/15/19 10:01 11/15/19 10:01 Additional Labs: Accuchecks 11/15/19 11/15/19 11/14/19 11:00 05:47 20:21 POC Glucose 161 H 79 148 H 11/14/19 17:12 POC Glucose 106 Hospitalist ROS - Review of Systems Respiratory: denies: cough, dry, shortness of breath, hemoptysis, SOB with excertion, pleuritic pain, sputum, wheezing, other Cardiovascular: denies: chest pain, palpitations, orthopnea, paroxysmal noc. dyspnea, edema, light headedness, other Gastrointestinal: denies: nausea, vomiting, abdominal pain, diarrhea, constipation, melena, hematochezia, other - Medication Medications: Active Medications Generic Name Dose Route Start Last Admin Trade Name Freq PRN Reason Stop Dose Admin Acetaminophen 650 mg 11/12/19 18:22 11/14/19 21:31 Tylenol PO 650 mg Q4H PRN Administration Headache/Fever/Mild Pain (1-3) Aspirin 81 mg 11/13/19 09:00 11/15/19 08:34 Ecotrin PO 81 mg DAILY MICHAEL Administration Atorvastatin Calcium 80 mg 11/12/19 21:00 11/14/19 21:31 Lipitor PO 80 mg HS MICHAEL Administration Carvedilol 12.5 mg 11/12/19 17:00 11/15/19 08:33 Coreg PO 12.5 mg BID-WM MICHAEL Administration Ezetimibe 10 mg 11/12/19 21:00 11/14/19 21:31 Zetia PO 10 mg HS MICHAEL Administration Enoxaparin Sodium 70 mg 11/14/19 09:00 11/15/19 08:34 Lovenox SC 70 mg DAILY MICHAEL Administration Furosemide 40 mg 11/15/19 09:00 11/15/19 08:34 Lasix PO 40 mg DAILY MICHAEL Administration Gabapentin 200 mg 11/12/19 21:00 11/15/19 08:34 Neurontin PO 200 mg BID MICHAEL Administration Insulin Glargine 20 units/ 0.2 mls @ 0 mls/hr 11/12/19 21:00 11/14/19 21:44 Miscellaneous Medication SC 0.2 mls HS MICHAEL Administration Milrinone Lactate/Dextrose 20 100 mls @ 2.71 mls/hr 11/14/19 15:30 11/15/19 14:42 mg/ Device IV 100 mls INF MICHAEL Administration Protocol 0.125 MCG/KG/MIN Sodium Chloride 10 ml 11/12/19 21:00 11/15/19 08:34 Flush - Normal Saline IVF 10 ml Q12HR MICHAEL Administration - Exam Heart: negative: RRR, no murmur, no gallops, no rubs, normal peripheral pulses, irregular, diminshed peripheral pulses, murmur present, II/IV, III/IV Respiratory: negative: CTAB, no wheezes, no rales, no ronchi, normal chest expansion, no tachypnea, normal percussion, rales, rhonchi, tachypneic, wheezes Gastrointestinal: negative: soft, non-tender, non-distended, normal bowel sounds , no palpable masses, no hepatomegaly, no splenomegaly, no bruit, no guarding, no rigidity, tender to palpation, distended, diminished bowl sounds, voluntary guarding Hosp A/P (1) Nausea & vomiting Code(s): R11.2 - NAUSEA WITH VOMITING, UNSPECIFIED Status: Acute (2) Acute on chronic combined systolic and diastolic ACC/AHA stage C congestive heart failure Code(s): I50.43 - ACUTE ON CHRONIC COMBINED SYSTOLIC AND DIASTOLIC HRT FAIL Status: Acute (3) Chest pain Code(s): R07.9 - CHEST PAIN, UNSPECIFIED Status: Acute (4) Anemia, normocytic normochromic Code(s): D64.9 - ANEMIA, UNSPECIFIED Status: Chronic (5) CAD (coronary artery disease) Code(s): I25.10 - ATHSCL HEART DISEASE OF [place] CORONARY ARTERY W/O ANG PCTRS Status: Chronic Qualifiers: Coronary Disease-Associated Artery/Lesion type: bypass graft (6) KB (acute kidney injury) Code(s): N17.9 - ACUTE KIDNEY FAILURE, UNSPECIFIED Status: Acute - Plan kb on ckd stage 3, her creatinine is improving. will continue milirone at 0.25mcg/kg/hr per heart failure. will continue her lovenox for elevated trops and chest pain. will monitor her hh. pt states she feels much better. Started her on lasix will monitor creatinine. 11/13 will continue milinorne for now. will continue lasix too. bnp ordered. will monitor renal function. will talk with cardio if ok to stop lovenox. 11/14 pt will go home on milinorne, will get picc to be placed. lasix changed to oral. spoke with Dr Ibrahim who thinks she mild be ischemia since her torp are elevated. She has some schistocytes noted on her cbc. will add plavix and see how she does. also she needs a wound vac. possible discharge in the next 24hr
[2019-11-15] MEDS ORDERED: Milrinone Lactate/D5W 20 MG in Premix Bag 1 BAG IV SCH (16:31)
--- NOTE | 2019-11-15 16:48 | PDOC.CPN ---
- Subjective Date: 11/15/19 Time: 16:48 Interval history: The pt seen and examined. No overnight events. No cardiac complaints. Only complaint she has today is pain to Rt BKA site. - Objective Allergies/Adverse Reactions: Allergies Allergy/AdvReac Type Severity Reaction Status Date / Time tramadol Allergy Intermediate Nausea Verified 11/12/19 17:34 Penicillins Allergy Rash Verified 11/12/19 17:34 Visit Medications: Current Medications Acetaminophen (Tylenol) 650 mg PO Q4H PRN PRN Reason: Headache/Fever/Mild Pain (1-3) Last Admin: 11/14/19 21:31 Dose: 650 mg Aspirin (Ecotrin) 81 mg PO DAILY [facility] Last Admin: 11/15/19 08:34 Dose: 81 mg Atorvastatin Calcium (Lipitor) 80 mg PO HS [facility] Last Admin: 11/14/19 21:31 Dose: 80 mg Carvedilol (Coreg) 12.5 mg PO BID-[facility] Last Admin: 11/15/19 08:33 Dose: 12.5 mg Dextrose/Water (Dextrose 50%) 25 gm SLOW IVP PRN PRN PRN Reason: Hypoglycemia Ezetimibe (Zetia) 10 mg PO HS [facility] Last Admin: 11/14/19 21:31 Dose: 10 mg Furosemide (Lasix) 40 mg PO DAILY [facility] Last Admin: 11/15/19 08:34 Dose: 40 mg Gabapentin (Neurontin) 200 mg PO BID [facility] Last Admin: 11/15/19 08:34 Dose: 200 mg Glucagon (Glucagon) 1 mg IM PRN PRN PRN Reason: Hypoglycemia Heparin Sodium (Porcine) (Heparin) 5,000 units SC BID MICHAEL Dextrose/Water (D5w) 1,000 mls @ 0 mls/hr IV .Q0M PRN PRN Reason: Hypoglycemia Insulin Glargine 20 units/ (Miscellaneous Medication) 0.2 mls @ 0 mls/hr SC [facility] Last Admin: 11/14/19 21:44 Dose: 0.2 mls Milrinone Lactate/Dextrose 20 (mg/ Device) 100 mls @ 5.43 mls/hr IV INF MICHAEL; Protocol Insulin Human Lispro (Humalog) 0 units SC .MILD SLIDING SCALE PRN PRN Reason: Mild Correctional Scale Miscellaneous Medication (Pharmacy To Dose) 1 each IVPB ONE PRN PRN Reason: Pharmacy to dose Stop: 12/12/19 19:51 Ondansetron HCl (Zofran) 4 mg IVP Q6H PRN PRN Reason: Nausea/Vomiting Senna/Docusate Sodium (Senokot S) 2 tab PO BID PRN PRN Reason: Constipation Simethicone (Mylicon Chewable) 80 mg PO PCHS PRN PRN Reason: Gas Pain Sodium Chloride (Flush - Normal Saline) 10 ml IVF Q12HR MICHAEL Last Admin: 11/15/19 08:34 Dose: 10 ml Sodium Chloride (Flush - Normal Saline) 10 ml IVF PRN PRN PRN Reason: Saline Flush Vital Signs & Weight: Vital Signs Temp Pulse Pulse Pulse Resp BP BP 11/15/19 15:40 98.8 F 75 16 11/15/19 11:20 98.0 F 74 16 11/15/19 09:20 75 74 108/52 L 105/53 L 11/15/19 07:20 98.3 F 74 16 BP Pulse Ox 11/15/19 15:40 118/56 L 97 11/15/19 11:20 106/49 L 96 11/15/19 09:20 11/15/19 07:20 101/50 L 94 L Admit Weight 163 lb 5 oz Weight 160 lb 1.6 oz - Quality Measures Condition: Heart Failure CV meds: Beta Robi: Yes, FADIA/ARB: No (decr. renal function) - Physical Exam General: alert & oriented x3 HEENT: mucus membranes moist Neck: supple neck Cardiac: regular rate and rhythm Lungs: clear to auscultation, decreased breath sounds - Labs Result Diagrams: 11/15/19 10:01 11/15/19 10:01 Troponin/CKMB CK-MB (CK-2) 1.3 ng/mL (0-6.6) 11/12/19 12:44 Troponin I 1.814 ng/mL (< 0.028) H* 11/15/19 13:38 - Telemetry Sinus rhythms and dysrhythmias: other (A paced) - Assessment/Plan Assessment/Plan: 1. Nausea & vomiting - Resolved. 2. Acute on chronic combined HF with EF 10-15% and grade II dd (EF 20-25% and grade III dd in 07/2019) - On Milirone at 0.25mcg/kg/hr; On Lasix 40mg IV BID and Coreg; not on FADIA/ARB due to hx of CKD. 3. 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 Ischemic CMY with hx of AICD upgrade from single to dual chamber on 2019 - HR setting will be decreased to 70 due to elevated trop possible 2/2 non- revascularizable ischemia (per Dr Ibrahim's recommendation) 5. KB on CKD stage 3 -unchanged 6. Severe CAD with s/p CABG x4 in 2003 - No more CP this AM; on Coreg, ASA, statin; not good candidate for further intervention or surgery; will change Lovenox to Heparin 5000mg BID for elevated Trop possible 2/2 non- revascularizable ischemia (per Dr Ibrahim's recommendation) 7. HTN - stable 8. HLD - on Statin 9. DM type 2. Was give Jardiance for [facility] on the last admission for Hx of DM and CHF. Not at this time. 10. Hx of Lt in 2015 11. Anemia 12. Mod-severe with RAMON 1.21 sq cm on 11/08/2019 (1.1cm in 07/2019) MAR reviewed Pt. seen and eval. by me. I agree with the A/P by the LAUNDRY FOLDER. She is feeling much better on the Milrinone. She continues to diurese,the renal function is improving,Continue present therapy. Home with IV milrinone. the edema has decreased. Chest clear. AP/VS. Poor salvage determiner prognosis. gjm
[2019-11-15 18:10] LABS: Critical Call Chem Troponin I RESULT DECREASING
[2019-11-15] MEDS: Insulin Glargine 20 UNITS in Pre-Filled Syringe SC SCH (20:39)
[2019-11-15] MEDS: Atorvastatin Calcium 40 MG TAB PO SCH (20:40)
[2019-11-15] MEDS: Ezetimibe 10 MG TAB PO SCH (20:41)
[2019-11-15 22:19] LABS: Platelet Count 182 thou/uL (130-400)
[2019-11-15] MEDS: Heparin 5,000 UNITS/ML VIAL SC SCH (22:35)
[2019-11-15 22:37] LABS: Critical Call Chem Troponin I RESULT DECREASING; Troponin I 1.623 ng/mL (< 0.028)
[2019-11-16 04:43] LABS: ALT (SGPT) 11 U/L (8-55); AST (SGOT) 20 U/L (5-34); Albumin 3.3 g/dL (3.4-4.8); Alkaline Phosphatase 106 U/L (40-110); Anion Gap 13 mmol/L (10-20); BUN (Urea Nitrogen) 13 mg/dL (9.8-20.1); Bilirubin, Total 1.8 mg/dL (0.2-1.2); Calc. Creatinine Clearance 46 mL/min (70-130); Calcium 8.6 mg/dL (7.8-10.44); Carbon Dioxide 26 mmol/L (23-31); Chloride 99 mmol/L (98-107); Estimated GFR-MDRD 51; Globulin 3.3 g/dL (2.4-3.5); Glucose 126 mg/dL (83-110); Potassium 4.2 mmol/L (3.5-5.1); Protein, Total 6.6 g/dL (6.0-8.3); Sodium 134 mmol/L (136-145)
[2019-11-16] MEDS ORDERED: Clopidogrel Bisulfate 75 MG TAB PO SCH (09:00)
[2019-11-16] MEDS: Acetaminophen 325 MG TAB PO PRN (09:27)
[2019-11-16] MEDS: Aspirin 81 mg Enteric Coated Tablet PO SCH (09:28)
[2019-11-16] MEDS: Carvedilol 6.25 MG TAB PO SCH ×2 (09:28→17:22)
[2019-11-16] MEDS: Gabapentin 100 MG CAP PO SCH (09:28)
[2019-11-16] MEDS: Furosemide 40 MG TAB PO SCH (09:29)
[2019-11-16] MEDS ORDERED: Empagliflozin 25 MG TAB PO SCH (09:45)
[2019-11-16] MEDS ORDERED: Acetaminophen/Codeine 30-300mg Tablet PO PRN (10:09)
[2019-11-16 10:48] LABS: Anion Gap 12 mmol/L (10-20); BUN (Urea Nitrogen) 12 mg/dL (9.8-20.1); Calc. Creatinine Clearance 48 mL/min (70-130); Carbon Dioxide 28 mmol/L (23-31); Chloride 97 mmol/L (98-107); Estimated GFR-MDRD 54; Glucose 175 mg/dL (83-110); Potassium 4.2 mmol/L (3.5-5.1); Sodium 133 mmol/L (136-145)
[2019-11-16 10:54] LABS: Anisocytosis SLIGHT = 6-15 cells (100X) (0-5/hpf); Band 1 % (5-11); Burr Cells SLIGHT = 2-5 cells (100X) (0-1/hpf); Eosinophils 3 % (0-10); Hemoglobin 9.2 g/dL (12.0-16.0); Lymphocytes 14 % (21-51); MDiff Complete? YES; Mean Corpuscular HGB CONC 32.2 g/dL (32.0-36.0); Mean Corpuscular Hemoglobin 32.6 pg (27.0-31.0); Mean Platelet Volume 9.8 fL (7.4-10.4); Monocytes 9 % (0-10); Neutrophil 73 % (42-75); Platelet Clumps MODERATE; Platelet Count 130 thou/uL (130-400); Platelet Morphology Comment PLT clumps seen-ADEQ; Poikilocytosis MODERATE=16-30 cells (100X) (0-5/hpf); Polychromasia SLIGHT = 2-3 cells (100X) (0-2/hpf); RBC Distribution Width 17.1 % (11.5-14.5); Red Blood Cell (RBC) Count 2.83 mill/uL (4.20-5.40); Schistocytes MODERATE= 6-15 cells (100X) (0-1/hpf); White Blood Cell (WBC) Count 3.9 thou/uL (4.8-10.8)
[2019-11-16] MEDS: Heparin 5,000 UNITS/ML VIAL SC SCH (12:18)
--- NOTE | 2019-11-16 12:24 | SPC ---
Right upper extremity PICC placement sonographic guided HISTORY: Heart failure. long-term IV. FINDINGS: After explaining the procedure and answering all questions, the right upper extremity was p repped and draped in usual sterile fashion. Sterile technique, buffered local anesthesia, sonographic guidance, and a 22-gauge needle were used to carefully access the right basilic vein. Sta ndard technique was used to place the tip of a 5 [place] single lumen PICC so that the tip lies at the level of the cavoatrial junction. Catheter was flushed and secured externally. Patient tolerated the procedure well and was returned in unchanged condition. IMPRESSION : Right upper extremity PICC is ready for use.
--- NOTE | 2019-11-16 13:00 | PDOC.CPN ---
- Subjective Date: 11/16/19 Time: 13:07 Interval history: The pt seen and examined today. No overnight events. No cardiac complaints. - Objective Allergies/Adverse Reactions: Allergies Allergy/AdvReac Type Severity Reaction Status Date / Time tramadol Allergy Intermediate Nausea Verified 11/12/19 17:34 Penicillins Allergy Rash Verified 11/12/19 17:34 Visit Medications: Current Medications Acetaminophen (Tylenol) 650 mg PO Q4H PRN PRN Reason: Headache/Fever/Mild Pain (1-3) Last Admin: 11/16/19 09:27 Dose: 650 mg Acetaminophen/Codeine Phosphate (Tylenol #3) 1 tab PO Q4H PRN PRN Reason: Moderate Pain (4-6) Last Admin: 11/16/19 12:23 Dose: 1 tab Aspirin (Ecotrin) 81 mg PO DAILY [facility] Last Admin: 11/16/19 09:28 Dose: 81 mg Atorvastatin Calcium (Lipitor) 80 mg PO [facility] Last Admin: 11/15/19 20:40 Dose: 80 mg Carvedilol (Coreg) 12.5 mg PO BID-[facility] Last Admin: 11/16/19 09:28 Dose: 12.5 mg Clopidogrel Bisulfate (Plavix) 75 mg PO DAILY [facility] Last Admin: 11/16/19 12:19 Dose: 75 mg Dextrose/Water (Dextrose 50%) 25 gm SLOW IVP PRN PRN PRN Reason: Hypoglycemia Ezetimibe (Zetia) 10 mg PO [facility] Last Admin: 11/15/19 20:41 Dose: 10 mg Furosemide (Lasix) 40 mg PO DAILY [facility] Last Admin: 11/16/19 09:29 Dose: 40 mg Gabapentin (Neurontin) 200 mg PO BID [facility] Last Admin: 11/16/19 09:28 Dose: 200 mg Glucagon (Glucagon) 1 mg IM PRN PRN PRN Reason: Hypoglycemia Heparin Sodium (Porcine) (Heparin) 5,000 units SC BID [facility] Last Admin: 11/16/19 12:18 Dose: 5,000 units Dextrose/Water (D5w) 1,000 mls @ 0 mls/hr IV .Q0M PRN PRN Reason: Hypoglycemia Insulin Glargine 20 units/ (Miscellaneous Medication) 0.2 mls @ 0 mls/hr SC [facility] Last Admin: 11/15/19 20:39 Dose: 0.2 mls Milrinone Lactate/Dextrose 20 (mg/ Device) 100 mls @ 5.43 mls/hr IV INF MICHAEL; Protocol Last Admin: 11/16/19 01:54 Dose: 100 mls Insulin Human Lispro (Humalog) 0 units SC .MILD SLIDING SCALE PRN PRN Reason: Mild Correctional Scale Last Admin: 11/16/19 12:19 Dose: 3 unit Miscellaneous Medication (Jardiance) 25 mg PO DAILY [facility] Ondansetron HCl (Zofran) 4 mg IVP Q6H PRN PRN Reason: Nausea/Vomiting Senna/Docusate Sodium (Senokot S) 2 tab PO BID PRN PRN Reason: Constipation Simethicone (Mylicon Chewable) 80 mg PO PCHS PRN PRN Reason: Gas Pain Sodium Chloride (Flush - Normal Saline) 10 ml IVF Q12HR MICHAEL Last Admin: 11/16/19 09:30 Dose: Not Given Sodium Chloride (Flush - Normal Saline) 10 ml IVF PRN PRN PRN Reason: Saline Flush Vital Signs & Weight: Vital Signs Temp Pulse Resp BP BP Pulse Ox 11/16/19 12:00 98 F 70 16 127/60 11/16/19 09:28 118/56 L 11/16/19 08:00 96 11/16/19 07:52 97.6 F 76 18 119/58 L 96 11/16/19 04:00 98.6 F 75 18 104/51 L 96 Admit Weight 163 lb 5 oz Weight 158 lb 6.4 oz - Quality Measures Condition: Heart Failure CV meds: Beta Robi: Yes, FADIA/ARB: No (decr. renal function) - Physical Exam General: alert & oriented x3 HEENT: mucus membranes moist Neck: supple neck Cardiac: regular rate and rhythm, S1/S2 Lungs: decreased breath sounds Neuro: cranial nerve 2-12 intact Extremities: no edema - Labs Result Diagrams: 11/16/19 09:51 11/16/19 09:51 Troponin/CKMB CK-MB (CK-2) 1.3 ng/mL (0-6.6) 11/12/19 12:44 Troponin I 1.623 ng/mL (< 0.028) H* 11/15/19 21:57 - Telemetry Sinus rhythms and dysrhythmias: sinus rhythm - Assessment/Plan Assessment/Plan: 1. Nausea & vomiting - Resolved. 2. 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 3. 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 Ischemic CMY with hx of AICD upgrade from single to dual chamber on 2019 - HR setting will be decreased to 70 due to elevated trop possible 2/2 non- revascularizable ischemia (per Dr Ibrahim's recommendation) 5. KB on CKD stage 3 -unchanged 6. Severe CAD with s/p CABG x4 in 2003 - No more CP this AM; on Coreg, ASA, statin; not good candidate for further intervention or surgery; Plavix and ASA were resumed for elevated Trop possible 2/2 non-revascularizable ischemia (per Dr Ibrahim's recommendation) 7. HTN - stable 8. HLD - on Statin 9. DM type 2- Jardiance 25mg qd for Farxiga is resumed from today for Hx of DM and CHF. 10. Hx of Lt in 2015 11. Anemia 12. Mod-severe with RAMON 1.21 sq cm on 11/08/2019 (1.1cm in 07/2019) MAR reviewed * from Cardiac standpoint, the pt is stable to d/c home with IV milrinone. * the pt will f/u with CHF clinic next wk and in 2k with Dr More' office
[2019-11-16 16:18] VITALS: BP 113/57; TEMP 97.3
--- NOTE | 2019-11-17 01:27 | DIS ---
DATE OF ADMISSION: 11/12/2019 DATE OF DISCHARGE: 11/16/2019 DISCHARGE DIAGNOSES: As of the followin. Acute on chronic systolic heart failure. 2. Elevated troponins, most likely secondary to demand related type 2 possible. 3. Peripheral vascular disease. 4. Hypertension. 5. Hyperlipidemia. 6. Diabetes. HOSPITAL COURSE: The patient is 74-year-old female, who was initially discharged from the hospital and within less than 24 hours, came back to the hospital with shortness of breath and orthopnea. She stated that she had eaten fried chicken when she was discharged from the hospital and also did not take her medication due to nausea and vomiting. At this time, she was brought into the hospital. She had chest pain. She did have some significantly elevated troponins, which were most likely demand related. However, given her severe peripheral vascular disease and coronary disease, Cardiology recommended no intervention. She was put on Lovenox for about 24 to 48 hours. Her H and H remained stable. At this time, she was also started on milrinone and was diuresed. She did really well with just 40 of IV Lasix. The patient's Milrinone was initially titrated from 0.125 mcg/kg per minute to 0.25 mcg/kg per minute. The patient at this time will be discharged home with Milrinone per heart failure specialist. We have been communicating back and forth with him. The patient also will go home with aspirin and Plavix. We have stopped the Lovenox. She has no chest pain and feels much better. HOME MEDICATIONS: 1. Torsemide 20 mg daily. 2. Insulin 20 units at bedtime. 3. Zetia 10 mg at bedtime. 4. Jardiance 25 mg daily. 5. Doxycycline 100 mg b.i.d. 6. Carvedilol 12.5 twice a day. 7. Hydralazine 10 mg q.8 hours. 8. Spironolactone 25 mg daily. 9. Isosorbide 30 mg daily. 10. Gabapentin 300 mg b.i.d. 11. Atorvastatin 80 mg at bedtime. 12. Aspirin 81 mg daily. 13. Milrinone and Plavix. PHYSICAL EXAMINATION: VITAL SIGNS: Temperature of 98.0, 70, 16, 96% on room air, 127/60. GENERAL: She is awake, alert, and oriented x3. Does not appear in distress. CV: S1, S2 present. No murmurs, rubs, or gallops. ABDOMEN: Soft, nontender. Bowel sounds present x2. The patient had her wound VAC changed on her right amputated foot. Her wound VAC has been changed. She will follow up with Wound Care as an outpatient. Job ID: [id number]
[2019-11-17] MEDS ORDERED: Empagliflozin 25 MG TAB PO SCH (09:00)
[2019-11-17] MEDS ORDERED: Torsemide 20 MG TAB PO SCH (09:00)
--- NOTE | 2019-11-17 14:51 | EKG ---
Test Reason : Blood Pressure : / mmHG Vent. Rate : 075 BPM Atrial Rate : 075 BPM P-R Int : 226 ms QRS Dur : 102 ms QT Int : 392 ms P-R-T Axes : 102 040 209 degrees QTc Int : 437 ms Atrial-paced rhythm with prolonged AV conduction Possible Inferior infarct , age undetermined Abnormal ECG Confirmed by ABBY ORO ([id number]), state editor ANAHI HU ([id number]) on 11/17/2019 2:50:33 PM Referred By: Confirmed By:ABBY ORO
== END 2019-11-16 17:41 | disposition home health service (06) | DRG 280 ==
LOC: ERS 12:26 → 2NO 16:00
PROVIDERS: ADMIT Internal Medicine; ATTEND Internal Medicine
PROC: 02HV33Z Insertion of Infusion Device into Superior Vena Cava, Percutaneous Approach (ICD-10-PCS; principal; 2019-11-16)
PROC: B548ZZA Ultrasonography of Superior Vena Cava, Guidance (ICD-10-PCS; 2019-11-16)
DX: I13.0 Hypertensive heart and chronic kidney disease with heart failure and stage 1 through stage 4 chronic kidney disease, or unspecified chronic kidney disease (principal); I50.43 Acute on chronic combined systolic (congestive) and diastolic (congestive) heart failure; I21.A1 Myocardial infarction type 2; N17.9 Acute kidney failure, unspecified; E11.22 Type 2 diabetes mellitus with diabetic chronic kidney disease; N18.3 Chronic kidney disease, stage 3 (moderate); I25.10 Atherosclerotic heart disease of native coronary artery without angina pectoris; I35.0 Nonrheumatic aortic (valve) stenosis; E78.5 Hyperlipidemia, unspecified; E78.00 Pure hypercholesterolemia, unspecified; E11.51 Type 2 diabetes mellitus with diabetic peripheral angiopathy without gangrene; E87.5 Hyperkalemia; D63.1 Anemia in chronic kidney disease; I25.5 Ischemic cardiomyopathy; Z95.810 Presence of automatic (implantable) cardiac defibrillator; I25.2 Old myocardial infarction; Z95.1 Presence of aortocoronary bypass graft; Z90.710 Acquired absence of both cervix and uterus; Z87.891 Personal history of nicotine dependence; Z88.5 Allergy status to narcotic agent; Z79.899 Other long term (current) drug therapy; Z88.0 Allergy status to penicillin
CPT/HCPCS: 36415; 36416; 36569; 51701; 71045; 80048; 80053; 80076; 81003; 82550; 82553; 83690; 83735; 83880; 84484; 85025; 93005; 94640; 96374; 96375; C1751; J1644; J1650; J1815; J1940; J2260; J3490; J7611

== ENCOUNTER 2020-08-07 12:08 | Observation (INO) | payer MEDICARE, MEDICAID ==
[2020-08-07] MEDS ORDERED: Ondansetron PF 4 MG/2 ML Vial ONE (12:41)
--- NOTE | 2020-08-07 13:53 | RAD ---
EXAM: Single view of the chest HISTORY: Altered mental status COMPARISON: 11/12/2019 FINDINGS: Single view of the chest shows an enlarged but stable cardiomediastinal silhouette. Atheros clerotic calcifications are seen in the aorta. The patient is status post sternotomy for CABG. The pacemaker is unchanged in position. There is a right upper extremity PICC line with its tip in the moon perior vena cava. There is no evidence of consolidation, mass, or pleural effusion. Degenerative changes are seen in the spine. IMPRESSION: Cardiomegaly
[2020-08-07 13:56] LABS: #Lymphocytes 0.9 thou/uL (1.20-3.40); #Monocytes 0.6 thou/uL (0.11-0.59); %Basophils 0.7 % (0.0-1.0); %Eosinophils 0.4 % (0.0-10.0); %Lymphocytes 15.3 % (21.0-51.0); %Neutrophils 72.6 % (42.0-75.0); Hemoglobin 10.1 g/dL (12.0-16.0); Mean Corpuscular HGB CONC 30.5 g/dL (32.0-36.0); Mean Corpuscular Hemoglobin 28.5 pg (27.0-31.0); Mean Corpuscular Volume 93.2 fL (78.0-98.0); RBC Distribution Width 16.4 % (11.5-14.5); Red Blood Cell (RBC) Count 3.53 mill/uL (4.20-5.40); White Blood Cell (WBC) Count 5.6 thou/uL (4.8-10.8)
[2020-08-07 14:10] LABS: Anisocytosis SLIGHT = 6-15 cells (100X) (0-5/hpf); Helmet Cells SLIGHT = 2-5 cells (100X) (0-1/hpf); Hypochromia SLIGHT = 6-15 cells (100X) (0-5/hpf); MDiff Complete? YES; Mean Platelet Volume 11.3 fL (7.4-10.4); Ovalocytes SLIGHT = 2-5 cells (100X) (0-1/hpf); Platelet Morphology Comment PLT clumps seen-ADEQ; Polychromasia SLIGHT = 2-3 cells (100X) (0-2/hpf); Schistocytes MODERATE= 6-15 cells (100X) (0-1/hpf); Tear Drops SLIGHT = 2-5 cells (100X) (0-1/hpf)
[2020-08-07 14:13] LABS: ALT (SGPT) 9 U/L (8-55); AST (SGOT) 16 U/L (5-34); Albumin 3.6 g/dL (3.4-4.8); Alkaline Phosphatase 96 U/L (40-110); Anion Gap 15 mmol/L (10-20); BUN (Urea Nitrogen) 19 mg/dL (9.8-20.1); Bilirubin, Total 1.8 mg/dL (0.2-1.2); Calc. Creatinine Clearance 0 mL/min (70-130); Carbon Dioxide 23 mmol/L (23-31); Chloride 101 mmol/L (98-107); Globulin 3.7 g/dL (2.4-3.5); Potassium 3.6 mmol/L (3.5-5.1); Protein, Total 7.3 g/dL (5.8-8.1); Sodium 135 mmol/L (136-145)
[2020-08-07] MEDS ORDERED: Dextrose 50% Abboject 50 ML SYRINGE ONE (14:18)
[2020-08-07 14:22] LABS: Glucose 55 mg/dL (83-110)
[2020-08-07 14:35] LABS: CKMB 0.9 ng/mL (0-6.6)
[2020-08-07] MEDS ORDERED: Furosemide 40 MG/4 ML VIAL ONE (14:58)
[2020-08-07 15:38] LABS: Bilirubin Negative (Negative); Blood, Urine Negative (Negative); Clarity Clear (Clear); Glucose, Urine (Dipstick) 30 mg/dL (Negative); Ketone, Urine Negative (Negative); Leukocyte Negative Leu/uL (Negative); Nitrite Negative (Negative); Protein, Urine (Dipstick) 20 mg/dL (Neg-Trace); Specific Gravity, Urine 1.013 (1.002-1.036); Urobilinogen 6 mg/dL (Less than 2)
[2020-08-07] MEDS ORDERED: Acetaminophen 325 MG TAB PO PRN (16:59)
[2020-08-07] MEDS ORDERED: Ondansetron PF 4 MG/2 ML Vial IVP PRN (16:59)
[2020-08-07] MEDS ORDERED: Dextrose 5% in Water 1,000 ML IV PRN (17:03)
[2020-08-07] MEDS ORDERED: Dextrose 50% Abboject 50 ML SYRINGE SLOW IVP PRN (17:03)
--- NOTE | 2020-08-07 17:12 | PDOC.HHP ---
Hospitalist HPI Not feeling well, confusion History of Present Illness: Patient is 75-year-old female with PMH of chronic systolic CHF, CAD, insulin- dependent DM type II, HTN, HLD, PVD, chronic anemia, and CKD stage III who presents to the ED with CC of not feeling well and confusion. Patient states she was "not feeling well" for the past 2 days. Her BG readings were also up-and-down for the last 2 days, yesterday when her HH nurse checked it, it was 26, it improved after she ate some peanut butter and drank soda. Her brother states patient was feeling confused today. Patient states she has been having decreased appetite for the past 1.5 week. She says she is on Levemir 30 HS and Novolog 10 units TID. She takes the Novolog based on her BG level and last dose was this morning. ED Course: In the ED, lab showed B. Allergies/Adverse Reactions: Allergy/AdvReac Type Severity Reaction Status Date / Time tramadol Allergy Intermediate Nausea Verified 11/12/19 17:34 Penicillins Allergy Rash Verified 11/12/19 17:34 Home Medications: Medication Instructions Recorded Confirmed Type Ezetimibe [Zetia] 10 mg PO HS 10/04/14 11/12/19 History Insulin Aspart [Novolog] 10 unit SQ TID-WM PRN 06/28/18 11/12/19 History Aspirin [Ecotrin Low Strength] 81 mg PO DAILY #30 tab 07/03/18 11/12/19 Rx Gabapentin 200 mg PO BID 08/14/19 11/12/19 History Acetaminophen With Codeine 1 tablet PO Q4HR PRN 11/03/19 11/12/19 History [Tylenol with Codeine #3] Insulin Glargine [Lantus Vial] 20 units SC HS 11/03/19 11/12/19 History Atorvastatin Calcium 80 mg PO HS #60 tablet 11/11/19 11/12/19 Rx Carvedilol [Coreg] 12.5 mg PO BID #60 tablet 11/11/19 11/12/19 Rx Doxycycline [Vibramycin] 100 mg PO BID #9 cap 11/11/19 11/12/19 Rx Empagliflozin [Jardiance] 25 mg PO DAILY #30 tab 11/11/19 11/12/19 Rx Isosorbide Mononitrate [Imdur ER] 30 mg PO DAILY #30 tab 11/11/19 11/12/19 Rx Simethicone [Mylicon Chewable] 80 mg PO PCHS PRN #30 tab 11/11/19 11/12/19 Rx Spironolactone [Aldactone] 25 mg PO QAM-WM #30 tab 11/11/19 11/12/19 Rx Torsemide [Demadex] 20 mg PO DAILY #30 tab 11/11/19 11/12/19 Rx hydrALAZINE [Apresoline] 10 mg PO Q8HR #90 tab 11/11/19 11/12/19 Rx Clopidogrel Bisulfate [Plavix] 75 mg PO DAILY #30 tab 11/16/19 Rx Milrinone Lactate/D5W 20 mg IV INF bag 11/16/19 Rx Past History: PMhx: CHF, CAD, insulin-dependent DM type II, HTN, HLD, PVD, chronic anemia, and CKD stage III PSHx: AICD placement, CABG, hysterectomy, right BKA, right great toe amputation, right lower extremity stent placement, left-sided carotid endarterectomy Social hx: She is a former smoker, quit more than 10 years ago. Denies alcohol or drug use. Hospitalist HPI ROS Constitutional: reports: chills. denies: fever Eyes: denies: vision change ENT: denies: throat pain Respiratory: reports: other (had SOB earlier, now resolved). denies: cough Cardiovascular: denies: chest pain Gastrointestinal: denies: nausea, vomiting, abdominal pain, diarrhea Genitourinary: denies: dysuria, frequency Skin: denies: rash Neurological: reports: weakness Other: Negative for CASTREJON Hospitalist Exam General Appearance: NAD General - other findings: Appears a little lethargic Eye: PERRL ENT: moist mucosa Neck: supple, JVD Heart: RRR, III/IV Respiratory: CTAB, no wheezes, no tachypnea Gastrointestinal: soft, non-tender, non-distended, normal bowel sounds Extremities: no edema Extremities - other findings: R BKA Skin: no rashes Neurological: normal sensation to touch, no weakness Musculoskeletal: normal strength Musculoskeletal - other findings: PICC line on ther RUE, no signs of surrounding infection Psychiatric: normal affect, A&O x 3 Hospitalist Results Result Diagrams: 08/07/20 13:40 02/25/21 13:40 Lab results: Laboratory Last Values WBC 5.6 thou/uL (4.8-10.8) 08/07/20 13:40 RBC 3.53 mill/uL (4.20-5.40) L 08/07/20 13:40 Hgb 10.1 g/dL (12.0-16.0) L 08/07/20 13:40 Hct 32.9 % (36.0-47.0) L 08/07/20 13:40 MCV 93.2 fL (78.0-98.0) 08/07/20 13:40 MCH 28.5 pg (27.0-31.0) 08/07/20 13:40 MCHC 30.5 g/dL (32.0-36.0) L 08/07/20 13:40 RDW 16.4 % (11.5-14.5) H 08/07/20 13:40 Plt Count TNP 08/07/20 13:40 MPV 11.3 fL (7.4-10.4) H 08/07/20 13:40 CBC Comment EDTA Platelet Clumpr 08/07/20 13:40 Neutrophils % 72.6 % (42.0-75.0) 08/07/20 13:40 Neutrophils % (Manual) Not Reportable 08/07/20 13:40 Lymphocytes % 15.3 % (21.0-51.0) L 08/07/20 13:40 Monocytes % 11.0 % (0.0-10.0) H 08/07/20 13:40 Eosinophils % 0.4 % (0.0-10.0) 08/07/20 13:40 Basophils % 0.7 % (0.0-1.0) 08/07/20 13:40 Neutrophils # 4.0 thou/uL (1.40-6.50) 08/07/20 13:40 Lymphocytes # 0.9 thou/uL (1.20-3.40) L 08/07/20 13:40 Monocytes # 0.6 thou/uL (0.11-0.59) H 08/07/20 13:40 Eosinophils # 0.0 thou/uL (0.0-0.7) 08/07/20 13:40 Basophils # 0.0 thou/uL (0.0-0.2) 08/07/20 13:40 Hypochromia SLIGHT = 6-15 cells (100X) (0-5/hpf) 08/07/20 13:40 Plt Morphology Comment PLT clumps seen-ADEQ 08/07/20 13:40 Polychromasia SLIGHT = 2-3 cells (100X) (0-2/hpf) 08/07/20 13:40 Anisocytosis SLIGHT = 6-15 cells (100X) (0-5/hpf) 08/07/20 13:40 Tear Drop Cells SLIGHT = 2-5 cells (100X) (0-1/hpf) 08/07/20 13:40 Ovalocytes SLIGHT = 2-5 cells (100X) (0-1/hpf) 08/07/20 13:40 Helmet Cells SLIGHT = 2-5 cells (100X) (0-1/hpf) 08/07/20 13:40 Acanthocytes (Spur) SLIGHT = 1-5 cells (100X) (None Seen) 08/07/20 13:40 Schistocytes MODERATE= 6-15 cells (100X) (0-1/hpf) H 08/07/20 13:40 Sodium 135 mmol/L (136-145) L 08/07/20 13:40 Potassium 3.6 mmol/L (3.5-5.1) 08/07/20 13:40 Chloride 101 mmol/L (98-107) 08/07/20 13:40 Carbon Dioxide 23 mmol/L (23-31) 08/07/20 13:40 Anion Gap 15 mmol/L (10-20) 08/07/20 13:40 BUN 19 mg/dL (9.8-20.1) 08/07/20 13:40 Creatinine 1.13 mg/dL (0.6-1.1) H 08/07/20 13:40 Estimated GFR (MDRD) 57 08/07/20 13:40 Glucose 55 mg/dL (83-110) L* 08/07/20 13:40 POC Glucose 114 mg/dL (70-100) H 08/07/20 12:16 Calcium 9.0 mg/dL (7.8-10.44) 08/07/20 13:40 Total Bilirubin 1.8 mg/dL (0.2-1.2) H 08/07/20 13:40 AST 16 U/L (5-34) 08/07/20 13:40 ALT 9 U/L (8-55) 08/07/20 13:40 Alkaline Phosphatase 96 U/L (40-110) 08/07/20 13:40 CK-MB (CK-2) 0.9 ng/mL (0-6.6) 08/07/20 13:40 Troponin I 0.124 ng/mL (< 0.028) H 08/07/20 13:40 B-Natriuretic Peptide 3236.5 pg/mL (0-100) H 08/07/20 13:40 Serum Total Protein 7.3 g/dL (5.8-8.1) 08/07/20 13:40 Albumin 3.6 g/dL (3.4-4.8) 08/07/20 13:40 Globulin 3.7 g/dL (2.4-3.5) H 08/07/20 13:40 Albumin/Globulin Ratio 1.0 g/dL (1.2-2.2) L 08/07/20 13:40 TSH 3rd Generation 1.0429 uIU/mL (0.35-4.94) 08/07/20 13:40 Urine Color Yellow (Yellow) 08/07/20 15:23 Urine Clarity Clear (Clear) 08/07/20 15:23 Urine pH 5.0 (5.0-9.0) 08/07/20 15:23 Ur Specific [place] 1.013 (1.002-1.036) 08/07/20 15:23 Urine Protein 20 mg/dL (Neg-Trace) 08/07/20 15:23 Urine Glucose (UA) 30 mg/dL (Negative) 08/07/20 15:23 Urine Ketones Negative mg/dL (Negative) 08/07/20 15:23 Urine Blood Negative (Negative) 08/07/20 15:23 Urine Nitrite Negative (Negative) 08/07/20 15:23 Urine Bilirubin Negative (Negative) 08/07/20 15:23 Urine Urobilinogen 6 mg/dL (Less than 2) A 08/07/20 15:23 Ur Leukocyte Esterase Negative Jackelyn/uL (Negative) 08/07/20 15:23 Chest x-ray Status: image reviewed by me EKG Status: image reviewed by me Additional Comments: NSR. Vent rate 87. T wave inversions in the anterior lateral leads. Hospitalist H&P A/P (1) Hypoglycemia Code(s): E16.2 - HYPOGLYCEMIA, UNSPECIFIED Status: Acute Assessment and Plan: Likely due to insulin with decreased PO intake. Improved with D50 x1. Plan: -hypoglycemia protocol -monitor BG Q1H for now -will give D5 if BG continues to drop -hold insulin for now (2) Acute encephalopathy Code(s): G93.40 - ENCEPHALOPATHY, UNSPECIFIED Status: Acute Assessment and Plan: likely due to hypoglycemia. Currently answers questions appropriately and follows command. UA negative for UTI. Plan: -treat hypoglycemia as above (3) Chronic systolic CHF (congestive heart failure) Code(s): I50.22 - CHRONIC SYSTOLIC (CONGESTIVE) HEART FAILURE Status: Chronic Assessment and Plan: Patient is on Milrinone drip. She sees medical assembler in [place] for her CHF, she does not remember his name. Plan: -cont Milrionone -cont home meds once reconciled (4) Elevated troponin Code(s): R77.8 - OTHER SPECIFIED ABNORMALITIES OF PLASMA PROTEINS Status: Chronic Assessment and Plan: chronic, likely due to CHF and CKD. Plan: -trend troponin (5) DMII (diabetes mellitus, type 2) Status: Chronic Qualifiers: Diabetes mellitus usp insulin use: with termite treater use Diabetes mellitus complication detail: with chronic kidney disease Chronic kidney disease stage: stage 3 (moderate) Assessment and Plan: Plan: -hold insulin for now due to hypoglycemia (6) HTN (hypertension) Code(s): I10 - ESSENTIAL (PRIMARY) HYPERTENSION Status: Chronic Assessment and Plan: Plan: -cont home meds
[2020-08-07 17:25] LABS: SARS-CoV-2 NAA Rapid Test Not Detected (NotDetected)
[2020-08-07 17:31] LABS: Troponin I 0.147 ng/mL (< 0.028)
[2020-08-07 20:01] VITALS: BMI 25.7
[2020-08-07 20:24] LABS: Troponin I 0.175 ng/mL (< 0.028)
[2020-08-08] MEDS ORDERED: Insulin Regular 300 UNITS/3 ML VIAL ONE (06:38)
[2020-08-08 06:44] LABS: #Lymphocytes 0.9 thou/uL (1.20-3.40); #Monocytes 0.6 thou/uL (0.11-0.59); #Neutrophils 4.2 thou/uL (1.40-6.50); %Basophils 0.3 % (0.0-1.0); %Eosinophils 0.3 % (0.0-10.0); %Lymphocytes 15.2 % (21.0-51.0); %Monocytes 10.9 % (0.0-10.0); %Neutrophils 73.3 % (42.0-75.0); Hemoglobin 10.1 g/dL (12.0-16.0); Mean Corpuscular HGB CONC 31.2 g/dL (32.0-36.0); Mean Corpuscular Hemoglobin 28.9 pg (27.0-31.0); Mean Corpuscular Volume 92.8 fL (78.0-98.0); Mean Platelet Volume 9.5 fL (7.4-10.4); Platelet Count 137 thou/uL (130-400); RBC Distribution Width 16.4 % (11.5-14.5); Red Blood Cell (RBC) Count 3.47 mill/uL (4.20-5.40); White Blood Cell (WBC) Count 5.7 thou/uL (4.8-10.8)
[2020-08-08 06:45] VITALS: TEMP 98.3
[2020-08-08 07:02] LABS: Anion Gap 15 mmol/L (10-20); BUN (Urea Nitrogen) 21 mg/dL (9.8-20.1); Calc. Creatinine Clearance 40 mL/min (70-130); Calcium 8.8 mg/dL (7.8-10.44); Carbon Dioxide 23 mmol/L (23-31); Chloride 98 mmol/L (98-107); Glucose 223 mg/dL (83-110); Potassium 4.3 mmol/L (3.5-5.1); Sodium 132 mmol/L (136-145)
[2020-08-08 07:09] LABS: Troponin I 0.199 ng/mL (< 0.028)
[2020-08-08] MEDS ORDERED: Spironolactone 25 MG TAB PO SCH (08:00)
[2020-08-08] MEDS ORDERED: Spironolactone 100 MG TAB PO SCH (08:00)
[2020-08-08] MEDS ORDERED: Carvedilol 6.25 MG TAB PO SCH ×2 (08:00→09:00)
[2020-08-08] MEDS ORDERED: Milrinone Lactate/D5W 20 MG in Premix Bag 1 BAG IV SCH (08:45)
[2020-08-08] MEDS ORDERED: FLU VACC QS2020-21(65YR UP)/PF 240 MCG/0.7 ML SYRINGE IM ONE (09:00)
[2020-08-08] MEDS ORDERED: Clopidogrel Bisulfate 75 MG TAB PO SCH (09:00)
[2020-08-08] MEDS ORDERED: Bumetanide 1 MG TAB PO SCH (09:00)
[2020-08-08] MEDS ORDERED: Non-Formulary Item 1 EACH (Carvedilol [Coreg] 12.5 MG Tablet) PO SCH (09:00)
[2020-08-08] MEDS ORDERED: Aspirin 81 mg Enteric Coated Tablet PO SCH (09:00)
[2020-08-08] MEDS ORDERED: Torsemide 20 MG TAB PO SCH (09:00)
[2020-08-08] MEDS ORDERED: Cepastat Lozenges 1 LOZ PO PRN (09:41)
[2020-08-08] MEDS ORDERED: Sodium Chloride 0.65% Nasal 44 ML BOT EA NARE PRN (09:41)
[2020-08-08] MEDS ORDERED: Loratadine 10 MG TAB PO PRN (09:41)
[2020-08-08] MEDS ORDERED: Loperamide HCl 2 MG CAP PO PRN (09:41)
[2020-08-08] MEDS ORDERED: hydrALAZINE 20 MG/ML VIAL SLOW IVP PRN (09:41)
[2020-08-08] MEDS ORDERED: Ondansetron ODT 4 MG TAB PO PRN (09:41)
[2020-08-08] MEDS ORDERED: Senokot S 8.6-50 MG TAB PO PRN (09:41)
[2020-08-08] MEDS ORDERED: Zolpidem Tartrate 5 MG TAB PO PRN (09:41)
[2020-08-08] MEDS ORDERED: GUAIFENESIN SF SOLN 200 MG/10 ML UDCUP PO PRN (09:41)
[2020-08-08] MEDS ORDERED: Aspirin 81 mg Enteric Coated Tablet ONE (11:24)
[2020-08-08] MEDS ORDERED: Clopidogrel Bisulfate 75 MG TAB ONE (11:24)
[2020-08-08 12:15] VITALS: BP 117/73
--- NOTE | 2020-08-08 14:00 | PDOC.DS.DS ---
Provider Date of Admission: 08/07/20 16:05 Date of Discharge: 08/08/20 Admitting Provider: Leatha Alexandra MD Primary Care Physician: Unknown Course Hospital Course: Patient is 75-year-old female with PMH of chronic systolic CHF, CAD, insulin- dependent DM type II, HTN, HLD, PVD, chronic anemia, and CKD stage III who presents to the ED with CC of not feeling well and confusion. Patient states she was "not feeling well" for the past 2 days. Her BG readings were also up-and-down for the last 2 days, yesterday when her HH nurse checked it, it was 26, it improved after she ate some peanut butter and drank soda. Her brother states patient was feeling confused today. Patient states she has been having decreased appetite for the past 1.5 week. She says she is on Levemir 30 HS and Novolog 10 units TID. She takes the Novolog based on her BG level and last dose was this morning. Patient has poor p.o. intake and she was taking insulin that is why her blood sugar dropped and that made her encephalopathy, while in hospital we observe 24 hours, she did not have any further hypoglycemia, we have provided patient educa tion to not to take insulin if she is not able to eat, or reduce the dose of medication, patient expressed understanding. Patient is up to her baseline, we have continued all her home medication while in hospital as well as on discharge. Patient education regarding avoidance of hypoglycemia and dietary intervention discussed with the patient in detail. Resuscitation Status: 08/07/20 16:59 Resuscitation Status Routine Resuscitation Status: FULL: Full Resuscitation Discussed with: Patient Lab Results: 08/08/20 06:34 08/08/20 06:34 Abnormal Lab Results - Last 48 hrs 08/07/20 13:40: Sodium 135 L, Creatinine 1.13 H, Total Bilirubin 1.8 H, Globulin 3.7 H, Albumin/Globulin Ratio 1.0 L 08/07/20 13:40: Troponin I 0.124 H 08/07/20 13:40: RBC 3.53 L, Hgb 10.1 L, Hct 32.9 L, MCHC 30.5 L, RDW 16.4 H, MPV 11.3 H, Lymphocytes % 15.3 L, Monocytes % 11.0 H, Lymphocytes # 0.9 L, Monocytes # 0.6 H, Schistocytes MODERATE= 6-15 cells H 08/07/20 13:40: B-Natriuretic Peptide 3236.5 H 08/07/20 15:23: Urine Urobilinogen 6 A 08/07/20 16:56: Troponin I 0.147 H 08/07/20 19:53: Troponin I 0.175 H 08/08/20 06:34: Sodium 132 L, BUN 21 H, Creatinine 1.32 H 08/08/20 06:34: RBC 3.47 L, Hgb 10.1 L, Hct 32.2 L, MCHC 31.2 L, RDW 16.4 H, Lymphocytes % 15.2 L, Monocytes % 10.9 H, Lymphocytes # 0.9 L, Monocytes # 0.6 H 08/08/20 06:34: Troponin I 0.199 H Microbiology - Entire Visit 08/07/20 15:23 Urine Straight Catheter Urine Culture - Preliminary NO GROWTH AT 12 HOURS Vitals: Vital Signs (12 hours) Temp Pulse Resp BP BP Pulse Ox 08/08/20 12:10 117/73 08/08/20 06:00 98.3 F 88 18 111/56 L 95 08/08/20 02:37 86 20 127/47 L 96 Weight Weight 149 lb 14.629 oz Physical Exam: The patient was seen and examined on the day of discharge. General Appearance: NAD, awake alert Eye: PERRL, anicteric sclera ENT: normocephalic atraumatic, no oropharyngeal lesions Neck: supple, symmetric, no JVD, no thyromegaly Respiratory: no wheezes, no rales, no ronchi Cardiovascular: no murmur, no gallops, no rubs Gastrointestinal: soft, non-tender, non-distended, normal bowel sounds Extremities: no clubbing, no edema Skin: normal turgor, no lesions Neurological: no focal deficits Musculoskeletal: normal tone, normal strength PSYCH: normal affect, normal behavior Problem (1) Acute encephalopathy Code(s): G93.40 - ENCEPHALOPATHY, UNSPECIFIED Status: Acute (2) Hypoglycemia Code(s): E16.2 - HYPOGLYCEMIA, UNSPECIFIED Status: Acute (3) Chronic systolic CHF (congestive heart failure) Code(s): I50.22 - CHRONIC SYSTOLIC (CONGESTIVE) HEART FAILURE Status: Chronic (4) Anemia, normocytic normochromic Code(s): D64.9 - ANEMIA, UNSPECIFIED Status: Chronic (5) CAD (coronary artery disease) Code(s): I25.10 - ATHSCL HEART DISEASE OF [place] CORONARY ARTERY W/O ANG PCTRS Status: Chronic Qualifiers: Coronary Disease-Associated Artery/Lesion type: bypass graft (6) DMII (diabetes mellitus, type 2) Status: Chronic Qualifiers: Diabetes mellitus buttermaker insulin use: with retirement use Diabetes mellitus complication detail: with chronic kidney disease Chronic kidney disease stage: stage 3 (moderate) (7) Diabetic neuropathy Code(s): E11.40 - TYPE 2 DIABETES MELLITUS WITH DIABETIC NEUROPATHY, UNSP Status: Chronic Qualifiers: Diabetes mellitus type: type 2 (8) Gouty arthropathy Code(s): M10.9 - GOUT, UNSPECIFIED Status: Chronic (9) H/O carotid artery stenosis Code(s): Z86.79 - PERSONAL HISTORY OF OTHER DISEASES OF THE CIRCULATORY SYSTEM Status: Chronic (10) HTN (hypertension) Code(s): I10 - ESSENTIAL (PRIMARY) HYPERTENSION Status: Chronic (11) Ischemic cardiomyopathy Code(s): I25.5 - ISCHEMIC CARDIOMYOPATHY Status: Chronic (12) Moderate aortic regurgitation with LV dilation by prior echocardiogram Code(s): I35.1 - NONRHEUMATIC AORTIC (VALVE) INSUFFICIENCY; I51.7 - CARDIOMEGALY Status: Chronic (13) Moderate aortic stenosis by prior echocardiogram Code(s): I35.0 - NONRHEUMATIC AORTIC (VALVE) STENOSIS Status: Chronic (14) PAD (peripheral artery disease) Code(s): I73.9 - PERIPHERAL VASCULAR DISEASE, UNSPECIFIED Status: Chronic (15) Severe tricuspid regurgitation by prior echocardiogram Code(s): I07.1 - RHEUMATIC TRICUSPID INSUFFICIENCY Status: Chronic (16) Subclavian arterial stenosis Code(s): I77.1 - STRICTURE OF ARTERY Status: Chronic Plan Home Medications: Medication Instructions Recorded Confirmed Type Ezetimibe [Zetia] 10 mg PO HS 10/04/14 11/12/19 History Aspirin [Ecotrin Low Strength] 81 mg PO DAILY #30 tab 07/03/18 11/12/19 Rx Gabapentin 200 mg PO BID 08/14/19 11/12/19 History Acetaminophen With Codeine 1 tablet PO Q4HR PRN 11/03/19 11/12/19 History [Tylenol with Codeine #3] Insulin Glargine [Lantus Vial] 20 units SC HS 11/03/19 11/12/19 History Atorvastatin Calcium 80 mg PO HS #60 tablet 11/11/19 11/12/19 Rx Carvedilol [Coreg] 12.5 mg PO BID #60 tablet 11/11/19 11/12/19 Rx Empagliflozin [Jardiance] 25 mg PO DAILY #30 tab 11/11/19 11/12/19 Rx Isosorbide Mononitrate [Imdur ER] 30 mg PO DAILY #30 tab 11/11/19 11/12/19 Rx Simethicone [Mylicon Chewable] 80 mg PO PCHS PRN #30 tab 11/11/19 11/12/19 Rx Spironolactone [Aldactone] 25 mg PO QAM-WM #30 tab 11/11/19 11/12/19 Rx Torsemide [Demadex] 20 mg PO DAILY #30 tab 11/11/19 11/12/19 Rx hydrALAZINE [Apresoline] 10 mg PO Q8HR #90 tab 11/11/19 11/12/19 Rx Clopidogrel Bisulfate [Plavix] 75 mg PO DAILY #30 tab 11/16/19 Rx Milrinone Lactate/D5W 20 mg IV INF bag 11/16/19 Rx Allergies: tramadol Allergy (Intermediate, Verified 11/12/19 17:34) Nausea Penicillins Allergy (Verified 11/12/19 17:34) Rash "swells a little bit" Activity:: Activity as Tolerated Nourishment:: Diabetic Diet Therapies:: Not Applicable Equipment/Supplies:: Not Applicable IV Therapy:: Not Applicable Referrals: Unknown,Unknown [Primary Care Provider] - Disposition: HOME Quality CORE MEASURES:: N/A
[2020-08-08] MEDS ORDERED: Atorvastatin Calcium 40 MG TAB PO SCH ×2 (21:00)
== END 2020-08-07 16:05 | disposition home or self-care (01) ==
LOC: ERS 12:08 → ERHOLD 16:05
PROVIDERS: ADMIT Internal Medicine; ATTEND Internal Medicine
DX: E11.649 Type 2 diabetes mellitus with hypoglycemia without coma (principal); G93.40 Encephalopathy, unspecified; I13.0 Hypertensive heart and chronic kidney disease with heart failure and stage 1 through stage 4 chronic kidney disease, or unspecified chronic kidney disease; E11.22 Type 2 diabetes mellitus with diabetic chronic kidney disease; N18.30 Chronic kidney disease, stage 3 unspecified; I50.22 Chronic systolic (congestive) heart failure; D63.1 Anemia in chronic kidney disease; I25.10 Atherosclerotic heart disease of native coronary artery without angina pectoris; E78.5 Hyperlipidemia, unspecified; R77.8 Other specified abnormalities of plasma proteins; I25.2 Old myocardial infarction; E11.40 Type 2 diabetes mellitus with diabetic neuropathy, unspecified; M10.9 Gout, unspecified; I25.5 Ischemic cardiomyopathy; I35.1 Nonrheumatic aortic (valve) insufficiency; I35.0 Nonrheumatic aortic (valve) stenosis; E11.51 Type 2 diabetes mellitus with diabetic peripheral angiopathy without gangrene; I07.1 Rheumatic tricuspid insufficiency; I77.1 Stricture of artery; Z87.891 Personal history of nicotine dependence; Z79.4 Long term (current) use of insulin; Z79.82 Long term (current) use of aspirin; Z79.899 Other long term (current) drug therapy; Z88.0 Allergy status to penicillin; Z88.5 Allergy status to narcotic agent; Z95.1 Presence of aortocoronary bypass graft; Z95.810 Presence of automatic (implantable) cardiac defibrillator; Z89.511 Acquired absence of right leg below knee; Z95.820 Peripheral vascular angioplasty status with implants and grafts; Z20.822 Contact with and (suspected) exposure to COVID-19
CPT/HCPCS: 0240U; 51701; 71045; 80048; 81003; 82553; 82962; 83880; 84484 ×2; 87086; 93005; 96374; 96375; 99285; 36415; 36416; 80053; 84443; 85025; J1940; J2405

== ENCOUNTER 2020-08-11 01:25 | Inpatient (IN) | payer MEDICARE, MEDICAID ==
[2020-08-11 03:26] LABS: Hemoglobin 10.4 g/dL (12.0-16.0); Mean Corpuscular HGB CONC 30.3 g/dL (32.0-36.0); Mean Corpuscular Hemoglobin 27.9 pg (27.0-31.0); Mean Corpuscular Volume 92.1 fL (78.0-98.0); RBC Distribution Width 16.8 % (11.5-14.5); Red Blood Cell (RBC) Count 3.71 mill/uL (4.20-5.40); White Blood Cell (WBC) Count 5.8 thou/uL (4.8-10.8)
[2020-08-11 03:27] LABS: ALT (SGPT) 18 U/L (8-55); AST (SGOT) 27 U/L (5-34); Albumin 3.5 g/dL (3.4-4.8); Alkaline Phosphatase 103 U/L (40-110); Anion Gap 20 mmol/L (10-20); BUN (Urea Nitrogen) 29 mg/dL (9.8-20.1); Bilirubin, Total 2.2 mg/dL (0.2-1.2); Calc. Creatinine Clearance 0 mL/min (70-130); Carbon Dioxide 20 mmol/L (23-31); Chloride 98 mmol/L (98-107); Globulin 3.6 g/dL (2.4-3.5); Glucose 127 mg/dL (83-110); Potassium 4.5 mmol/L (3.5-5.1); Protein, Total 7.1 g/dL (5.8-8.1); Sodium 133 mmol/L (136-145)
[2020-08-11 03:44] LABS: #Monocytes 0.7 thou/uL (0.11-0.59); #Neutrophils 4.1 thou/uL (1.40-6.50); %Basophils 0.5 % (0.0-1.0); %Eosinophils 0.2 % (0.0-10.0); %Lymphocytes 16.4 % (21.0-51.0); %Monocytes 12.3 % (0.0-10.0); %Neutrophils 70.6 % (42.0-75.0); Anisocytosis SLIGHT = 6-15 cells (100X) (0-5/hpf); MDiff Complete? YES; Mean Platelet Volume 5.1 fL (7.4-10.4); Platelet Clumps MARKED; Platelet Count 122 thou/uL (130-400); Platelet Morphology Comment PLT clumps seen-ADEQ
[2020-08-11] MEDS ORDERED: Dextrose 5% in Water 1,000 ML IV PRN (05:28)
[2020-08-11] MEDS ORDERED: Dextrose 50% Abboject 50 ML SYRINGE SLOW IVP PRN (05:28)
[2020-08-11] MEDS ORDERED: Ondansetron PF 4 MG/2 ML Vial IVP PRN (05:41)
[2020-08-11] MEDS ORDERED: Ondansetron ODT 4 MG TAB PO PRN (05:41)
[2020-08-11] MEDS ORDERED: Non-Formulary Item 1 EACH (Milrinone Lactate/D5w [Milrinone Lactate/D5w] 20 MG/100 ML Bag IV SCH (05:45)
[2020-08-11] MEDS ORDERED: Furosemide 40 MG/4 ML VIAL SLOW IVP SCH ×2 (07:00→09:00)
[2020-08-11] MEDS ORDERED: Milrinone Lactate/D5W 20 MG in Premix Bag 1 BAG IV SCH (07:15)
[2020-08-11 08:08] LABS: Troponin I 0.357 ng/mL (< 0.028)
[2020-08-11 08:19] VITALS: BMI 28.6
[2020-08-11] MEDS: Enoxaparin Sodium 30 MG/0.3 ML SYRINGE SC SCH (08:30)
[2020-08-11 09:27] LABS: Troponin I 0.411 ng/mL (< 0.028)
[2020-08-11] MEDS ORDERED: Acetaminophen/Codeine 30-300mg Tablet PO PRN (09:28)
[2020-08-11] MEDS ORDERED: Gabapentin 300 MG CAP PO SCH (11:45)
[2020-08-11] MEDS: Milrinone Lactate/D5W 20 MG in Premix Bag 1 BAG IV SCH ×2 (12:04→21:40)
[2020-08-11] MEDS: hydrALAZINE 10 MG TAB PO SCH ×2 (14:28→21:44)
[2020-08-11] MEDS ORDERED: Gabapentin 100 MG CAP PO SCH (21:00)
[2020-08-11] MEDS: Gabapentin 300 MG CAP PO SCH (21:02)
[2020-08-11] MEDS: Ezetimibe 10 MG TAB PO SCH (21:02)
[2020-08-11] MEDS: Atorvastatin Calcium 40 MG TAB PO SCH (21:02)
[2020-08-11] MEDS: Carvedilol 6.25 MG TAB PO SCH (21:03)
[2020-08-12] MEDS: hydrALAZINE 10 MG TAB PO SCH (05:45)
[2020-08-12 05:49] LABS: Anion Gap 14 mmol/L (10-20); BUN (Urea Nitrogen) 28 mg/dL (9.8-20.1); Calc. Creatinine Clearance 40 mL/min (70-130); Calcium 8.7 mg/dL (7.8-10.44); Carbon Dioxide 25 mmol/L (23-31); Chloride 97 mmol/L (98-107); Glucose 163 mg/dL (83-110); Potassium 4.2 mmol/L (3.5-5.1); Sodium 132 mmol/L (136-145)
[2020-08-12 09:10] LABS: Burr Cells SLIGHT = 2-5 cells (100X) (0-1/hpf); Eosinophils 4 % (0-10); Hemoglobin 9.4 g/dL (12.0-16.0); Lymphocytes 14 % (21-51); MDiff Complete? YES; Mean Corpuscular HGB CONC 30.4 g/dL (32.0-36.0); Mean Corpuscular Hemoglobin 27.8 pg (27.0-31.0); Mean Corpuscular Volume 91.5 fL (78.0-98.0); Mean Platelet Volume 9.2 fL (7.4-10.4); Monocytes 11 % (0-10); Neutrophil 69 % (42-75); Platelet Count 127 thou/uL (130-400); Platelet Morphology Comment Appears Adequate; RBC Distribution Width 16.7 % (11.5-14.5); Reactive Lymphocytes 2 % (0-10); Red Blood Cell (RBC) Count 3.37 mill/uL (4.20-5.40); Schistocytes SLIGHT = 2-5 cells (100X) (0-1/hpf); White Blood Cell (WBC) Count 3.9 thou/uL (4.8-10.8)
[2020-08-12] MEDS ORDERED: Magnesium 2 GM/50 ML 2 GM in Premix Bag 1 BAG IVPB SCH (09:30)
[2020-08-12] MEDS: Milrinone Lactate/D5W 20 MG in Premix Bag 1 BAG IV SCH ×2 (09:33→20:07)
[2020-08-12] MEDS: Carvedilol 6.25 MG TAB PO SCH ×2 (09:36→21:42)
[2020-08-12] MEDS: Gabapentin 300 MG CAP PO SCH ×2 (09:36→21:43)
[2020-08-12] MEDS: Aspirin 81 mg Enteric Coated Tablet PO SCH (09:36)
[2020-08-12] MEDS: Enoxaparin Sodium 30 MG/0.3 ML SYRINGE SC SCH (09:37)
[2020-08-12] MEDS: Clopidogrel Bisulfate 75 MG TAB PO SCH (09:37)
[2020-08-12] MEDS: Empagliflozin 25 MG TAB PO SCH (09:37)
[2020-08-12] MEDS: Furosemide 40 MG/4 ML VIAL SLOW IVP SCH (09:37)
[2020-08-12] MEDS ORDERED: Spironolactone 25 MG TAB PO SCH (09:45)
[2020-08-12] MEDS: Atorvastatin Calcium 40 MG TAB PO SCH (21:42)
[2020-08-12] MEDS: Ezetimibe 10 MG TAB PO SCH (21:43)
[2020-08-12] MEDS: Insulin Glargine 30 UNITS in Pre-Filled Syringe 1 EACH SC SCH (21:43)
[2020-08-13 05:39] LABS: Anion Gap 15 mmol/L (10-20); BUN (Urea Nitrogen) 27 mg/dL (9.8-20.1); Calc. Creatinine Clearance 40 mL/min (70-130); Calcium 8.4 mg/dL (7.8-10.44); Carbon Dioxide 23 mmol/L (23-31); Chloride 96 mmol/L (98-107); Glucose 152 mg/dL (83-110); Magnesium 2.4 mg/dL (1.6-2.6); Potassium 3.9 mmol/L (3.5-5.1); Sodium 130 mmol/L (136-145)
[2020-08-13] MEDS ORDERED: Levothyroxine Sodium 25 MCG TAB PO SCH (06:00)
[2020-08-13] MEDS: Milrinone Lactate/D5W 20 MG in Premix Bag 1 BAG IV SCH ×2 (06:20→16:59)
[2020-08-13] MEDS: Carvedilol 6.25 MG TAB PO SCH ×2 (08:54→21:15)
[2020-08-13] MEDS: Spironolactone 25 MG TAB PO SCH (08:54)
[2020-08-13] MEDS: Clopidogrel Bisulfate 75 MG TAB PO SCH (08:54)
[2020-08-13] MEDS: Gabapentin 300 MG CAP PO SCH ×2 (08:54→21:15)
[2020-08-13] MEDS: Aspirin 81 mg Enteric Coated Tablet PO SCH (08:54)
[2020-08-13] MEDS: Furosemide 40 MG/4 ML VIAL SLOW IVP SCH (08:57)
[2020-08-13] MEDS: Enoxaparin Sodium 30 MG/0.3 ML SYRINGE SC SCH (08:58)
[2020-08-13] MEDS: Empagliflozin 25 MG TAB PO SCH (09:39)
[2020-08-13] MEDS ORDERED: Potassium Chloride 10 MEQ TAB PO SCH (10:30)
[2020-08-13] MEDS: Simethicone Chewable 80 MG TAB PO PRN (11:28)
[2020-08-13] MEDS: hydrALAZINE 10 MG TAB PO SCH ×2 (14:50→21:16)
[2020-08-13] MEDS: HumaLOG 300 UNITS/3 ML VIAL SC PRN (17:03)
[2020-08-13] MEDS: Atorvastatin Calcium 40 MG TAB PO SCH (21:15)
[2020-08-13] MEDS: Insulin Glargine 30 UNITS in Pre-Filled Syringe 1 EACH SC SCH (21:15)
[2020-08-13] MEDS: Ezetimibe 10 MG TAB PO SCH (21:16)
[2020-08-14] MEDS: Milrinone Lactate/D5W 20 MG in Premix Bag 1 BAG IV SCH ×3 (01:36→21:55)
[2020-08-14] MEDS: Simethicone Chewable 80 MG TAB PO PRN (03:08)
[2020-08-14 05:38] LABS: Anion Gap 13 mmol/L (10-20); BUN (Urea Nitrogen) 21 mg/dL (9.8-20.1); Calc. Creatinine Clearance 42 mL/min (70-130); Calcium 8.5 mg/dL (7.8-10.44); Carbon Dioxide 26 mmol/L (23-31); Chloride 96 mmol/L (98-107); Glucose 97 mg/dL (83-110); Magnesium 2.4 mg/dL (1.6-2.6); Potassium 3.6 mmol/L (3.5-5.1); Sodium 131 mmol/L (136-145)
[2020-08-14] MEDS: hydrALAZINE 10 MG TAB PO SCH ×3 (05:45→21:11)
[2020-08-14] MEDS: Bumetanide 1 MG TAB PO SCH ×2 (07:54→16:35)
[2020-08-14] MEDS: Spironolactone 25 MG TAB PO SCH (07:54)
[2020-08-14] MEDS: Aspirin 81 mg Enteric Coated Tablet PO SCH (07:55)
[2020-08-14] MEDS: Carvedilol 6.25 MG TAB PO SCH ×2 (07:55→21:06)
[2020-08-14] MEDS: Empagliflozin 25 MG TAB PO SCH (07:56)
[2020-08-14] MEDS: Clopidogrel Bisulfate 75 MG TAB PO SCH (07:56)
[2020-08-14] MEDS: Enoxaparin Sodium 30 MG/0.3 ML SYRINGE SC SCH (07:56)
[2020-08-14] MEDS: Gabapentin 300 MG CAP PO SCH ×2 (07:57→21:05)
[2020-08-14] MEDS: Potassium Chloride 10 MEQ TAB PO SCH (07:58)
[2020-08-14] MEDS: Insulin Glargine 30 UNITS in Pre-Filled Syringe 1 EACH SC SCH (21:04)
[2020-08-14] MEDS: Ezetimibe 10 MG TAB PO SCH (21:05)
[2020-08-14] MEDS: Atorvastatin Calcium 40 MG TAB PO SCH (21:06)
[2020-08-14] MEDS ORDERED: Senokot S 8.6-50 MG TAB PO PRN (23:45)
[2020-08-15 05:22] LABS: Anion Gap 14 mmol/L (10-20); BUN (Urea Nitrogen) 17 mg/dL (9.8-20.1); Calc. Creatinine Clearance 47 mL/min (70-130); Calcium 8.4 mg/dL (7.8-10.44); Carbon Dioxide 25 mmol/L (23-31); Chloride 97 mmol/L (98-107); Glucose 99 mg/dL (83-110); Magnesium 2.2 mg/dL (1.6-2.6); Potassium 3.8 mmol/L (3.5-5.1); Sodium 132 mmol/L (136-145)
[2020-08-15] MEDS: hydrALAZINE 10 MG TAB PO SCH ×3 (06:08→21:11)
[2020-08-15] MEDS: Milrinone Lactate/D5W 20 MG in Premix Bag 1 BAG IV SCH ×2 (07:10→15:07)
[2020-08-15] MEDS: Enoxaparin Sodium 30 MG/0.3 ML SYRINGE SC SCH (08:07)
[2020-08-15] MEDS: Spironolactone 25 MG TAB PO SCH (09:07)
[2020-08-15] MEDS: Aspirin 81 mg Enteric Coated Tablet PO SCH (09:07)
[2020-08-15] MEDS: Carvedilol 6.25 MG TAB PO SCH ×2 (09:07→21:08)
[2020-08-15] MEDS: Bumetanide 1 MG TAB PO SCH (09:07)
[2020-08-15] MEDS: Clopidogrel Bisulfate 75 MG TAB PO SCH (09:08)
[2020-08-15] MEDS: Gabapentin 300 MG CAP PO SCH ×2 (09:09→21:08)
[2020-08-15] MEDS: Empagliflozin 25 MG TAB PO SCH (09:09)
[2020-08-15] MEDS: Potassium Chloride 10 MEQ TAB PO SCH (09:10)
[2020-08-15] MEDS ORDERED: Potassium Chloride 40 MEQ in Sodium Chloride 0.9% 250 ML 250 ML IVPB SCH (11:00)
[2020-08-15] MEDS ORDERED: Furosemide 40 MG/4 ML VIAL SLOW IVP SCH (15:00)
[2020-08-15] MEDS: Insulin Glargine 30 UNITS in Pre-Filled Syringe 1 EACH SC SCH (21:04)
[2020-08-15] MEDS: Atorvastatin Calcium 40 MG TAB PO SCH (21:07)
[2020-08-15] MEDS: Ezetimibe 10 MG TAB PO SCH (21:08)
[2020-08-16] MEDS: Milrinone Lactate/D5W 20 MG in Premix Bag 1 BAG IV SCH ×3 (02:02→20:01)
[2020-08-16 05:44] LABS: Anion Gap 15 mmol/L (10-20); BUN (Urea Nitrogen) 16 mg/dL (9.8-20.1); Calc. Creatinine Clearance 42 mL/min (70-130); Calcium 8.3 mg/dL (7.8-10.44); Carbon Dioxide 25 mmol/L (23-31); Chloride 98 mmol/L (98-107); Glucose 84 mg/dL (83-110); Magnesium 2.2 mg/dL (1.6-2.6); Potassium 3.8 mmol/L (3.5-5.1); Sodium 134 mmol/L (136-145)
[2020-08-16] MEDS: hydrALAZINE 10 MG TAB PO SCH ×3 (05:44→21:23)
[2020-08-16] MEDS ORDERED: Potassium Chloride 20 MEQ TAB PO SCH (08:15)
[2020-08-16] MEDS: Carvedilol 6.25 MG TAB PO SCH ×2 (08:32→19:52)
[2020-08-16] MEDS: Aspirin 81 mg Enteric Coated Tablet PO SCH (08:32)
[2020-08-16] MEDS: Bumetanide 1 MG TAB PO SCH ×2 (08:32→15:44)
[2020-08-16] MEDS: Clopidogrel Bisulfate 75 MG TAB PO SCH (08:33)
[2020-08-16] MEDS: Gabapentin 300 MG CAP PO SCH ×2 (08:33→19:53)
[2020-08-16] MEDS: Potassium Chloride 10 MEQ TAB PO SCH ×2 (08:33→19:54)
[2020-08-16] MEDS: Enoxaparin Sodium 30 MG/0.3 ML SYRINGE SC SCH (08:33)
[2020-08-16] MEDS: Spironolactone 25 MG TAB PO SCH (08:33)
[2020-08-16] MEDS: Empagliflozin 25 MG TAB PO SCH (08:34)
[2020-08-16] MEDS: HumaLOG 300 UNITS/3 ML VIAL SC PRN (11:10)
[2020-08-16] MEDS ORDERED: Carvedilol 6.25 MG TAB PO SCH (11:30)
[2020-08-16] MEDS ORDERED: Potassium Chloride 20 MEQ in Sodium Chloride 0.9% 250 ML 250 ML IVPB SCH (11:30)
[2020-08-16] MEDS: Atorvastatin Calcium 40 MG TAB PO SCH (19:51)
[2020-08-16] MEDS: Ezetimibe 10 MG TAB PO SCH (19:53)
[2020-08-16] MEDS: Insulin Glargine 30 UNITS in Pre-Filled Syringe 1 EACH SC SCH (21:23)
[2020-08-17 05:04] LABS: Anion Gap 14 mmol/L (10-20); BUN (Urea Nitrogen) 14 mg/dL (9.8-20.1); Calc. Creatinine Clearance 43 mL/min (70-130); Calcium 8.7 mg/dL (7.8-10.44); Carbon Dioxide 27 mmol/L (23-31); Chloride 97 mmol/L (98-107); Glucose 60 mg/dL (83-110); Magnesium 2.2 mg/dL (1.6-2.6); Sodium 134 mmol/L (136-145)
[2020-08-17] MEDS: Milrinone Lactate/D5W 20 MG in Premix Bag 1 BAG IV SCH (05:28)
[2020-08-17] MEDS: hydrALAZINE 10 MG TAB PO SCH ×2 (05:34→15:04)
[2020-08-17] MEDS: Aspirin 81 mg Enteric Coated Tablet PO SCH (08:15)
[2020-08-17] MEDS: Gabapentin 300 MG CAP PO SCH (08:15)
[2020-08-17] MEDS: Bumetanide 1 MG TAB PO SCH (08:15)
[2020-08-17] MEDS: Carvedilol 6.25 MG TAB PO SCH (08:16)
[2020-08-17] MEDS: Clopidogrel Bisulfate 75 MG TAB PO SCH (08:16)
[2020-08-17] MEDS: Potassium Chloride 10 MEQ TAB PO SCH (08:16)
[2020-08-17] MEDS: Empagliflozin 25 MG TAB PO SCH (08:17)
[2020-08-17] MEDS: Enoxaparin Sodium 30 MG/0.3 ML SYRINGE SC SCH (08:17)
[2020-08-17] MEDS: Spironolactone 25 MG TAB PO SCH (08:17)
[2020-08-17 13:50] VITALS: BP 132/76; TEMP 98.4
== END 2020-08-17 15:33 | disposition home or self-care (01) | DRG 280 ==
LOC: ERS 01:25 → 2SW 05:04
PROVIDERS: ADMIT Student in an Organized Health Care Education/Training Program; ATTEND Internal Medicine
PROC: 4B02XTZ Measurement of Cardiac Defibrillator, External Approach (ICD-10-PCS; principal; 2020-08-12)
DX: I13.0 Hypertensive heart and chronic kidney disease with heart failure and stage 1 through stage 4 chronic kidney disease, or unspecified chronic kidney disease (principal); I50.23 Acute on chronic systolic (congestive) heart failure; I21.A1 Myocardial infarction type 2; E87.1 Hypo-osmolality and hyponatremia; N17.9 Acute kidney failure, unspecified; Z20.822 Contact with and (suspected) exposure to COVID-19; I25.10 Atherosclerotic heart disease of native coronary artery without angina pectoris; E78.5 Hyperlipidemia, unspecified; D63.1 Anemia in chronic kidney disease; I25.5 Ischemic cardiomyopathy; I70.1 Atherosclerosis of renal artery; N18.30 Chronic kidney disease, stage 3 unspecified; E11.22 Type 2 diabetes mellitus with diabetic chronic kidney disease; E11.51 Type 2 diabetes mellitus with diabetic peripheral angiopathy without gangrene; E78.00 Pure hypercholesterolemia, unspecified; E66.9 Obesity, unspecified; K21.9 Gastro-esophageal reflux disease without esophagitis; I25.2 Old myocardial infarction; Z95.810 Presence of automatic (implantable) cardiac defibrillator; Z90.710 Acquired absence of both cervix and uterus; Z89.511 Acquired absence of right leg below knee; Z79.4 Long term (current) use of insulin; Z88.0 Allergy status to penicillin; Z88.6 Allergy status to analgesic agent; Z79.899 Other long term (current) drug therapy; Z79.82 Long term (current) use of aspirin; Z98.51 Tubal ligation status; Z95.1 Presence of aortocoronary bypass graft
CPT/HCPCS: 36415; 36416; 71045; 80048; 80053; 82553; 83735; 83880; 84484; 85025; 93005; J1650; J1815; J1940; J2260; J2405; J3475; J3480; J7050

== ENCOUNTER 2020-09-22 13:21 | Inpatient (IN) | payer MEDICARE, MEDICAID ==
[2020-09-22] MEDS ORDERED: Dextrose 50% Abboject 50 ML SYRINGE ONE (14:17)
[2020-09-22 14:24] LABS: Hemoglobin 10.3 g/dL (12.0-16.0); Mean Corpuscular HGB CONC 30.2 g/dL (32.0-36.0); Mean Corpuscular Hemoglobin 27.6 pg (27.0-31.0); Mean Corpuscular Volume 91.2 fL (78.0-98.0); Red Blood Cell (RBC) Count 3.74 mill/uL (4.20-5.40); White Blood Cell (WBC) Count 5.8 thou/uL (4.8-10.8)
[2020-09-22 14:36] LABS: ALT (SGPT) 7 U/L (8-55); AST (SGOT) 18 U/L (5-34); Albumin 3.7 g/dL (3.4-4.8); Alkaline Phosphatase 99 U/L (40-110); Anion Gap 14 mmol/L (10-20); BUN (Urea Nitrogen) 16 mg/dL (9.8-20.1); Bilirubin, Total 2.2 mg/dL (0.2-1.2); Calc. Creatinine Clearance 0 mL/min (70-130); Carbon Dioxide 28 mmol/L (23-31); Chloride 95 mmol/L (98-107); Globulin 4.1 g/dL (2.4-3.5); Potassium 3.5 mmol/L (3.5-5.1); Protein, Total 7.8 g/dL (5.8-8.1); Sodium 133 mmol/L (136-145)
[2020-09-22 14:40] LABS: Anisocytosis SLIGHT = 6-15 cells (100X) (0-5/hpf); Band 4 % (5-11); Hypochromia SLIGHT = 6-15 cells (100X) (0-5/hpf); Lymphocytes 9 % (21-51); MDiff Complete? YES; Monocytes 5 % (0-10); Neutrophil 78 % (42-75); Ovalocytes SLIGHT = 2-5 cells (100X) (0-1/hpf); Platelet Clumps MODERATE; Platelet Morphology Comment PLT clumps seen-ADEQ; Reactive Lymphocytes 4 % (0-10); Schistocytes MODERATE= 6-15 cells (100X) (0-1/hpf); Target Cells SLIGHT = 2-5 cells (100X) (0-1/hpf); Tear Drops SLIGHT = 2-5 cells (100X) (0-1/hpf)
[2020-09-22 14:44] LABS: Glucose 34 mg/dL (83-110)
[2020-09-22 15:02] LABS: CKMB 0.7 ng/mL (0-6.6)
[2020-09-22 15:17] LABS: SARS-CoV-2 NAA Rapid Test Not Detected (NotDetected)
[2020-09-22] MEDS ORDERED: Aspirin Chewable 81 MG TAB ONE (15:51)
[2020-09-22] MEDS ORDERED: Enoxaparin Sodium 80 MG/0.8 ML SYRINGE ONE (16:01)
[2020-09-22 17:08] LABS: Platelet Count 163 thou/uL (130-400)
[2020-09-22] MEDS ORDERED: Dextrose 5% in Water 1,000 ML IV PRN (18:06)
[2020-09-22] MEDS ORDERED: Dextrose 50% Abboject 50 ML SYRINGE SLOW IVP PRN (18:06)
[2020-09-22] MEDS ORDERED: Ondansetron PF 4 MG/2 ML Vial IVP PRN (19:30)
[2020-09-22] MEDS ORDERED: Acetaminophen 325 MG TAB PO PRN (19:30)
[2020-09-22] MEDS ORDERED: Ondansetron ODT 4 MG TAB SL PRN (19:30)
[2020-09-22] MEDS ORDERED: Milrinone Lactate/D5W 20 MG in Premix Bag 1 BAG IV SCH (20:45)
[2020-09-22] MEDS: Furosemide 40 MG/4 ML VIAL SLOW IVP SCH (22:02)
[2020-09-22] MEDS ORDERED: Simethicone Chewable 80 MG TAB PO PRN (22:23)
[2020-09-22] MEDS: Acetaminophen/Codeine 30-300mg Tablet PO PRN (22:52)
[2020-09-23] MEDS ORDERED: Gabapentin 300 MG CAP PO SCH (00:15)
[2020-09-23 04:47] LABS: Anion Gap 14 mmol/L (10-20); BUN (Urea Nitrogen) 15 mg/dL (9.8-20.1); Calc. Creatinine Clearance 62 mL/min (70-130); Calcium 8.4 mg/dL (7.8-10.44); Carbon Dioxide 27 mmol/L (23-31); Chloride 95 mmol/L (98-107); Glucose 99 mg/dL (83-110); Sodium 133 mmol/L (136-145)
[2020-09-23 05:14] LABS: #Basophils 0.1 thou/uL (0.0-0.2); #Eosinphils 0.1 thou/uL (0.0-0.7); #Lymphocytes 0.8 thou/uL (1.20-3.40); #Monocytes 0.4 thou/uL (0.11-0.59); #Neutrophils 2.5 thou/uL (1.40-6.50); %Basophils 1.4 % (0.0-1.0); %Eosinophils 1.3 % (0.0-10.0); %Lymphocytes 20.8 % (21.0-51.0); %Monocytes 11.3 % (0.0-10.0); %Neutrophils 65.2 % (42.0-75.0); Hemoglobin 8.4 g/dL (12.0-16.0); Mean Corpuscular Hemoglobin 27.3 pg (27.0-31.0); Mean Corpuscular Volume 91.1 fL (78.0-98.0); Mean Platelet Volume 6.2 fL (7.4-10.4); RBC Distribution Width 19.7 % (11.5-14.5); Red Blood Cell (RBC) Count 3.09 mill/uL (4.20-5.40); White Blood Cell (WBC) Count 3.8 thou/uL (4.8-10.8)
[2020-09-23 05:15] LABS: Anisocytosis MODERATE=16-30 cells (100X) (0-5/hpf); Elliptocytes SLIGHT = 2-5 cells (100X) (0-1/hpf); MDiff Complete? YES; Platelet Clumps MARKED; Schistocytes SLIGHT = 2-5 cells (100X) (0-1/hpf)
[2020-09-23] MEDS ORDERED: Electrolyte Replacement Protocol FS PRN (07:30)
[2020-09-23] MEDS ORDERED: Potassium Chloride 20 MEQ TAB PO SCH ×2 (07:45→17:00)
[2020-09-23] MEDS ORDERED: Potassium Chloride 10 MEQ TAB PO SCH (08:00)
[2020-09-23] MEDS: Carvedilol 6.25 MG TAB PO SCH ×2 (08:39→17:45)
[2020-09-23] MEDS: Spironolactone 25 MG TAB PO SCH (08:40)
[2020-09-23] MEDS: Enoxaparin Sodium 40 MG/0.4 ML SYRINGE SC SCH (08:40)
[2020-09-23] MEDS: Aspirin 81 mg Enteric Coated Tablet PO SCH (08:40)
[2020-09-23] MEDS: Furosemide 40 MG/4 ML VIAL SLOW IVP SCH ×2 (08:41→22:05)
[2020-09-23] MEDS: Gabapentin 300 MG CAP PO SCH ×2 (08:41→22:05)
[2020-09-23 12:40] LABS: Magnesium 1.7 mg/dL (1.6-2.6); Phosphorus 2.8 mg/dL (2.3-4.7)
[2020-09-23] MEDS ORDERED: Magnesium 2 GM/50 ML 2 GM in Premix Bag 1 BAG IVPB SCH (13:00)
[2020-09-23 13:14] LABS: CKMB 0.7 ng/mL (0-6.6)
[2020-09-23] MEDS ORDERED: Clopidogrel Bisulfate 75 MG TAB PO SCH (14:45)
[2020-09-23] MEDS ORDERED: Empagliflozin 10 MG TAB PO SCH (14:45)
[2020-09-23 17:26] LABS: Anion Gap 15 mmol/L (10-20); BUN (Urea Nitrogen) 14 mg/dL (9.8-20.1); Calc. Creatinine Clearance 51 mL/min (70-130); Calcium 9.1 mg/dL (7.8-10.44); Carbon Dioxide 27 mmol/L (23-31); Chloride 93 mmol/L (98-107); Glucose 199 mg/dL (83-110); Potassium 4.1 mmol/L (3.5-5.1); Sodium 131 mmol/L (136-145)
[2020-09-23 17:29] LABS: Magnesium 2.3 mg/dL (1.6-2.6)
[2020-09-23] MEDS: HumaLOG 300 UNITS/3 ML VIAL SC PRN (17:48)
[2020-09-23] MEDS: Ezetimibe 10 MG TAB PO SCH (22:03)
[2020-09-23] MEDS: Atorvastatin Calcium 40 MG TAB PO SCH (22:03)
[2020-09-23] MEDS: Milrinone Lactate/D5W 20 MG in Premix Bag 1 BAG IV SCH (23:48)
[2020-09-24] MEDS: Furosemide 40 MG/4 ML VIAL SLOW IVP SCH ×2 (05:10→15:55)
[2020-09-24 05:15] LABS: ALT (SGPT) Less than 7 U/L (8-55); AST (SGOT) 14 U/L (5-34); Albumin 3.3 g/dL (3.4-4.8); Alkaline Phosphatase 90 U/L (40-110); Anion Gap 15 mmol/L (10-20); BUN (Urea Nitrogen) 15 mg/dL (9.8-20.1); Bilirubin, Total 2.4 mg/dL (0.2-1.2); Calc. Creatinine Clearance 53 mL/min (70-130); Calcium 8.9 mg/dL (7.8-10.44); Carbon Dioxide 26 mmol/L (23-31); Chloride 96 mmol/L (98-107); Globulin 3.5 g/dL (2.4-3.5); Glucose 158 mg/dL (83-110); Magnesium 2.2 mg/dL (1.6-2.6); Phosphorus 2.6 mg/dL (2.3-4.7); Potassium 3.9 mmol/L (3.5-5.1); Protein, Total 6.8 g/dL (5.8-8.1); Sodium 133 mmol/L (136-145)
[2020-09-24 05:42] LABS: Eosinophils 1 % (0-10); Hemoglobin 8.9 g/dL (12.0-16.0); Hypochromia SLIGHT = 6-15 cells (100X) (0-5/hpf); Lymphocytes 14 % (21-51); Mean Corpuscular HGB CONC 30.1 g/dL (32.0-36.0); Mean Corpuscular Hemoglobin 27.5 pg (27.0-31.0); Mean Corpuscular Volume 91.5 fL (78.0-98.0); Monocytes 11 % (0-10); Neutrophil 74 % (42-75); Platelet Clumps MODERATE; Platelet Morphology Comment PLT clumps seen-ADEQ; RBC Distribution Width 19.8 % (11.5-14.5); Red Blood Cell (RBC) Count 3.23 mill/uL (4.20-5.40); Schistocytes SLIGHT = 2-5 cells (100X) (0-1/hpf); White Blood Cell (WBC) Count 4.8 thou/uL (4.8-10.8)
[2020-09-24] MEDS: Milrinone Lactate/D5W 20 MG in Premix Bag 1 BAG IV SCH ×2 (06:46→22:20)
[2020-09-24 07:23] LABS: MDiff Complete? YES; Platelet Count 156 thou/uL (130-400)
[2020-09-24] MEDS: Potassium Chloride 20 MEQ TAB PO SCH ×2 (08:32→17:19)
[2020-09-24] MEDS: Spironolactone 25 MG TAB PO SCH (08:32)
[2020-09-24] MEDS: Carvedilol 6.25 MG TAB PO SCH ×2 (08:32→17:19)
[2020-09-24] MEDS: Aspirin 81 mg Enteric Coated Tablet PO SCH (08:33)
[2020-09-24] MEDS: Empagliflozin 10 MG TAB PO SCH (08:33)
[2020-09-24] MEDS: Clopidogrel Bisulfate 75 MG TAB PO SCH (08:33)
[2020-09-24] MEDS: Enoxaparin Sodium 40 MG/0.4 ML SYRINGE SC SCH (08:33)
[2020-09-24] MEDS: Gabapentin 300 MG CAP PO SCH ×2 (08:34→21:29)
[2020-09-24] MEDS: HumaLOG 300 UNITS/3 ML VIAL SC PRN ×2 (11:13→18:16)
[2020-09-24] MEDS ORDERED: Bumetanide 1 MG TAB PO SCH (17:45)
[2020-09-24] MEDS: Atorvastatin Calcium 40 MG TAB PO SCH (21:30)
[2020-09-24] MEDS: Ezetimibe 10 MG TAB PO SCH (21:30)
[2020-09-24] MEDS: Bumetanide 1 MG TAB PO SCH (21:30)
[2020-09-25] MEDS: Milrinone Lactate/D5W 20 MG in Premix Bag 1 BAG IV SCH ×3 (05:23→20:38)
[2020-09-25 05:37] LABS: ALT (SGPT) 7 U/L (8-55); AST (SGOT) 14 U/L (5-34); Albumin 3.4 g/dL (3.4-4.8); Alkaline Phosphatase 94 U/L (40-110); Anion Gap 17 mmol/L (10-20); BUN (Urea Nitrogen) 14 mg/dL (9.8-20.1); Bilirubin, Total 2.8 mg/dL (0.2-1.2); Calc. Creatinine Clearance 48 mL/min (70-130); Calcium 9.2 mg/dL (7.8-10.44); Carbon Dioxide 24 mmol/L (23-31); Chloride 94 mmol/L (98-107); Globulin 3.6 g/dL (2.4-3.5); Glucose 126 mg/dL (83-110); Magnesium 2.2 mg/dL (1.6-2.6); Phosphorus 2.9 mg/dL (2.3-4.7); Potassium 4.1 mmol/L (3.5-5.1); Sodium 131 mmol/L (136-145)
[2020-09-25 06:06] LABS: #Lymphocytes 0.8 thou/uL (1.20-3.40); #Monocytes 0.5 thou/uL (0.11-0.59); #Neutrophils 2.9 thou/uL (1.40-6.50); %Basophils 0.3 % (0.0-1.0); %Eosinophils 1.1 % (0.0-10.0); %Lymphocytes 19.1 % (21.0-51.0); %Monocytes 11.7 % (0.0-10.0); %Neutrophils 67.8 % (42.0-75.0); Anisocytosis MODERATE=16-30 cells (100X) (0-5/hpf); Crenated RBC SLIGHT = 1-5 cells (100X) (None Seen); Hemoglobin 8.8 g/dL (12.0-16.0); MDiff Complete? YES; Mean Corpuscular HGB CONC 30.4 g/dL (32.0-36.0); Mean Corpuscular Hemoglobin 27.9 pg (27.0-31.0); Mean Corpuscular Volume 91.9 fL (78.0-98.0); Mean Platelet Volume 6.3 fL (7.4-10.4); Platelet Clumps MARKED; Platelet Count 145 thou/uL (130-400); Platelet Morphology Comment PLT clumps seen-ADEQ; Polychromasia SLIGHT = 2-3 cells (100X) (0-2/hpf); RBC Distribution Width 19.9 % (11.5-14.5); Red Blood Cell (RBC) Count 3.14 mill/uL (4.20-5.40); Schistocytes SLIGHT = 2-5 cells (100X) (0-1/hpf); White Blood Cell (WBC) Count 4.3 thou/uL (4.8-10.8)
[2020-09-25] MEDS: Carvedilol 6.25 MG TAB PO SCH (08:57)
[2020-09-25] MEDS: Potassium Chloride 20 MEQ TAB PO SCH ×2 (08:57→16:16)
[2020-09-25] MEDS: Spironolactone 25 MG TAB PO SCH (09:00)
[2020-09-25] MEDS: Clopidogrel Bisulfate 75 MG TAB PO SCH (09:00)
[2020-09-25] MEDS: Aspirin 81 mg Enteric Coated Tablet PO SCH (09:00)
[2020-09-25] MEDS: Gabapentin 300 MG CAP PO SCH ×2 (09:00→20:41)
[2020-09-25] MEDS: Enoxaparin Sodium 40 MG/0.4 ML SYRINGE SC SCH (09:00)
[2020-09-25] MEDS: Empagliflozin 10 MG TAB PO SCH (09:00)
[2020-09-25] MEDS: Bumetanide 1 MG TAB PO SCH (09:00)
[2020-09-25] MEDS ORDERED: Magnesium Oxide 400 MG TAB PO SCH (09:00)
[2020-09-25] MEDS: Ondansetron PF 4 MG/2 ML Vial IVP PRN (09:02)
[2020-09-25 12:58] LABS: Troponin I 1.266 ng/mL (< 0.028)
[2020-09-25] MEDS ORDERED: Nitroglycerin 0.4 MG TAB (25 Tab Bottle) ONE (13:25)
[2020-09-25] MEDS: Acetaminophen/Codeine 30-300mg Tablet PO PRN (13:32)
[2020-09-25] MEDS ORDERED: Nitroglycerin 0.4 MG TAB (25 Tab Bottle) SL SCH (13:45)
[2020-09-25] MEDS ORDERED: Furosemide 40 MG/4 ML VIAL SLOW IVP SCH (15:00)
[2020-09-25] MEDS: Carvedilol 25 MG TAB PO SCH (16:16)
[2020-09-25] MEDS: HumaLOG 300 UNITS/3 ML VIAL SC PRN (17:16)
[2020-09-25 17:47] LABS: Bilirubin Negative (Negative); Blood, Urine Negative (Negative); Clarity Clear (Clear); Glucose, Urine (Dipstick) Greater than 1000 mg/dL (Negative); Ketone, Urine Negative (Negative); Leukocyte Negative Leu/uL (Negative); Nitrite Negative (Negative); Protein, Urine (Dipstick) Negative (Neg-Trace); RBC/HPF 0-3 HPF (0-3); Specific Gravity, Urine 1.006 (1.002-1.036); Squamous Epithelial 0-3 HPF (0-3); Urobilinogen Normal mg/dL (Less than 2); WBC/HPF None Seen HPF (0-3); pH, Urine 6.5 (5.0-9.0)
[2020-09-25 17:48] LABS: Bacteria/HPF Rare-Few HPF (None Seen)
[2020-09-25 17:49] LABS: Urine Culture Reflex No No
[2020-09-25] MEDS: Enoxaparin Sodium 80 MG/0.8 ML SYRINGE SC SCH (20:40)
[2020-09-25] MEDS: TICAGRELOR 90 MG TABLET PO SCH (20:41)
[2020-09-25] MEDS: Atorvastatin Calcium 40 MG TAB PO SCH (20:41)
[2020-09-25] MEDS: Ezetimibe 10 MG TAB PO SCH (20:41)
[2020-09-26] MEDS: Milrinone Lactate/D5W 20 MG in Premix Bag 1 BAG IV SCH ×2 (03:56→14:06)
[2020-09-26 06:55] LABS: Hemoglobin 8.6 g/dL (12.0-16.0); Platelet Count 131 thou/uL (130-400)
[2020-09-26] MEDS: Gabapentin 300 MG CAP PO SCH ×2 (08:56→20:33)
[2020-09-26] MEDS: Clopidogrel Bisulfate 75 MG TAB PO SCH (08:57)
[2020-09-26] MEDS: Empagliflozin 10 MG TAB PO SCH (08:57)
[2020-09-26] MEDS: Aspirin 81 mg Enteric Coated Tablet PO SCH (08:57)
[2020-09-26] MEDS: TICAGRELOR 90 MG TABLET PO SCH ×2 (08:57→20:33)
[2020-09-26] MEDS: Potassium Chloride 20 MEQ TAB PO SCH ×2 (08:57→16:35)
[2020-09-26] MEDS: Carvedilol 25 MG TAB PO SCH ×2 (08:58→16:36)
[2020-09-26] MEDS: Spironolactone 25 MG TAB PO SCH (08:58)
[2020-09-26] MEDS: Enoxaparin Sodium 80 MG/0.8 ML SYRINGE SC SCH ×2 (08:58→20:33)
[2020-09-26] MEDS: Furosemide 40 MG/4 ML VIAL SLOW IVP SCH ×2 (09:21→16:36)
[2020-09-26 09:49] LABS: Anion Gap 18 mmol/L (10-20); BUN (Urea Nitrogen) 17 mg/dL (9.8-20.1); Calc. Creatinine Clearance 36 mL/min (70-130); Calcium 9.1 mg/dL (7.8-10.44); Carbon Dioxide 23 mmol/L (23-31); Chloride 93 mmol/L (98-107); Glucose 173 mg/dL (83-110); Magnesium 2.3 mg/dL (1.6-2.6); Potassium 4.5 mmol/L (3.5-5.1); Sodium 129 mmol/L (136-145)
[2020-09-26] MEDS ORDERED: Famotidine 20 MG TAB PO SCH (10:30)
[2020-09-26] MEDS: HumaLOG 300 UNITS/3 ML VIAL SC PRN ×3 (10:43→20:37)
[2020-09-26] MEDS ORDERED: Sodium Chloride 0.9% 250 ML IV SCH (14:00)
[2020-09-26] MEDS: Atorvastatin Calcium 40 MG TAB PO SCH (20:33)
[2020-09-26] MEDS: Ezetimibe 10 MG TAB PO SCH (20:33)
[2020-09-27] MEDS: Milrinone Lactate/D5W 20 MG in Premix Bag 1 BAG IV SCH ×4 (02:04→20:21)
[2020-09-27 06:53] LABS: Anion Gap 18 mmol/L (10-20); BUN (Urea Nitrogen) 18 mg/dL (9.8-20.1); Calc. Creatinine Clearance 34 mL/min (70-130); Carbon Dioxide 26 mmol/L (23-31); Chloride 93 mmol/L (98-107); Glucose 141 mg/dL (83-110); Magnesium 2.4 mg/dL (1.6-2.6); Potassium 4.6 mmol/L (3.5-5.1); Sodium 132 mmol/L (136-145)
[2020-09-27] MEDS: Aspirin 81 mg Enteric Coated Tablet PO SCH (08:21)
[2020-09-27] MEDS: Potassium Chloride 20 MEQ TAB PO SCH (08:21)
[2020-09-27] MEDS: Spironolactone 25 MG TAB PO SCH (08:22)
[2020-09-27] MEDS: TICAGRELOR 90 MG TABLET PO SCH ×2 (08:22→22:05)
[2020-09-27] MEDS: Famotidine 20 MG TAB PO SCH (08:22)
[2020-09-27] MEDS: Carvedilol 25 MG TAB PO SCH ×2 (08:22→16:03)
[2020-09-27] MEDS: Gabapentin 300 MG CAP PO SCH ×2 (08:22→22:06)
[2020-09-27] MEDS: Empagliflozin 10 MG TAB PO SCH (08:23)
[2020-09-27] MEDS: Enoxaparin Sodium 80 MG/0.8 ML SYRINGE SC SCH ×2 (08:23→22:04)
[2020-09-27] MEDS ORDERED: Bumetanide 1 MG TAB PO SCH ×2 (09:00→14:00)
[2020-09-27] MEDS: HumaLOG 300 UNITS/3 ML VIAL SC PRN ×2 (11:17→16:57)
[2020-09-27] MEDS ORDERED: Nitroglycerin 0.4 MG TAB (25 Tab Bottle) SL PRN (12:17)
[2020-09-27] MEDS: Ezetimibe 10 MG TAB PO SCH (22:04)
[2020-09-27] MEDS: Atorvastatin Calcium 40 MG TAB PO SCH (22:04)
[2020-09-28] MEDS: Milrinone Lactate/D5W 20 MG in Premix Bag 1 BAG IV SCH ×4 (01:34→18:14)
[2020-09-28 05:11] LABS: #Eosinphils 0.1 thou/uL (0.0-0.7); #Lymphocytes 0.7 thou/uL (1.20-3.40); #Monocytes 0.5 thou/uL (0.11-0.59); #Neutrophils 2.9 thou/uL (1.40-6.50); %Basophils 0.2 % (0.0-1.0); %Eosinophils 1.6 % (0.0-10.0); %Lymphocytes 16.3 % (21.0-51.0); %Monocytes 11.9 % (0.0-10.0); Hemoglobin 8.7 g/dL (12.0-16.0); Mean Corpuscular HGB CONC 31.2 g/dL (32.0-36.0); Mean Corpuscular Hemoglobin 28.7 pg (27.0-31.0); Mean Corpuscular Volume 91.9 fL (78.0-98.0); Mean Platelet Volume 10.5 fL (7.4-10.4); Platelet Count 168 thou/uL (130-400); RBC Distribution Width 20.1 % (11.5-14.5); Red Blood Cell (RBC) Count 3.04 mill/uL (4.20-5.40); White Blood Cell (WBC) Count 4.1 thou/uL (4.8-10.8)
[2020-09-28 05:37] LABS: ALT (SGPT) 8 U/L (8-55); AST (SGOT) 16 U/L (5-34); Albumin 3.4 g/dL (3.4-4.8); Alkaline Phosphatase 98 U/L (40-110); Anion Gap 16 mmol/L (10-20); BUN (Urea Nitrogen) 20 mg/dL (9.8-20.1); Bilirubin, Total 3.3 mg/dL (0.2-1.2); Calc. Creatinine Clearance 32 mL/min (70-130); Calcium 9.1 mg/dL (7.8-10.44); Carbon Dioxide 27 mmol/L (23-31); Chloride 90 mmol/L (98-107); Globulin 3.7 g/dL (2.4-3.5); Glucose 162 mg/dL (83-110); Magnesium 2.4 mg/dL (1.6-2.6); Potassium 4.2 mmol/L (3.5-5.1); Protein, Total 7.1 g/dL (5.8-8.1); Sodium 129 mmol/L (136-145)
[2020-09-28] MEDS: HumaLOG 300 UNITS/3 ML VIAL SC PRN (06:19)
[2020-09-28] MEDS: TICAGRELOR 90 MG TABLET PO SCH ×2 (09:27→20:57)
[2020-09-28] MEDS: Aspirin 81 mg Enteric Coated Tablet PO SCH (09:27)
[2020-09-28] MEDS: Famotidine 20 MG TAB PO SCH (09:27)
[2020-09-28] MEDS: Gabapentin 300 MG CAP PO SCH ×2 (09:27→20:57)
[2020-09-28] MEDS: Spironolactone 25 MG TAB PO SCH (09:27)
[2020-09-28] MEDS: Carvedilol 25 MG TAB PO SCH ×2 (09:28→17:48)
[2020-09-28] MEDS: Empagliflozin 10 MG TAB PO SCH (09:28)
[2020-09-28] MEDS: Potassium Chloride 20 MEQ TAB PO SCH (09:28)
[2020-09-28] MEDS: Torsemide 20 MG TAB PO SCH (11:57)
[2020-09-28] MEDS: Atorvastatin Calcium 40 MG TAB PO SCH (20:57)
[2020-09-28] MEDS: Ezetimibe 10 MG TAB PO SCH (20:59)
[2020-09-28] MEDS: Enoxaparin Sodium 80 MG/0.8 ML SYRINGE SC SCH (21:02)
[2020-09-29] MEDS: Milrinone Lactate/D5W 20 MG in Premix Bag 1 BAG IV SCH ×3 (01:07→17:43)
[2020-09-29] MEDS: Ondansetron PF 4 MG/2 ML Vial IVP PRN ×2 (02:07→09:21)
[2020-09-29] MEDS: HumaLOG 300 UNITS/3 ML VIAL SC PRN (05:28)
[2020-09-29 05:41] LABS: Lymphocytes 16 % (21-51); MDiff Complete? YES; Monocytes 9 % (0-10); Neutrophil 75 % (42-75); Nucleated RBC 1 % (0); Platelet Count 64 thou/uL (130-400); Platelet Morphology Comment PLT clumps seen-ADEQ
[2020-09-29 05:42] LABS: Hemoglobin 9.3 g/dL (12.0-16.0); Mean Corpuscular HGB CONC 30.4 g/dL (32.0-36.0); Mean Corpuscular Volume 92.1 fL (78.0-98.0); Mean Platelet Volume 8.4 fL (7.4-10.4); RBC Distribution Width 20.6 % (11.5-14.5); Red Blood Cell (RBC) Count 3.32 mill/uL (4.20-5.40); White Blood Cell (WBC) Count 4.5 thou/uL (4.8-10.8)
[2020-09-29 05:48] LABS: Anion Gap 19 mmol/L (10-20); BUN (Urea Nitrogen) 22 mg/dL (9.8-20.1); Calc. Creatinine Clearance 28 mL/min (70-130); Calcium 9.3 mg/dL (7.8-10.44); Carbon Dioxide 22 mmol/L (23-31); Chloride 90 mmol/L (98-107); Glucose 219 mg/dL (83-110); Magnesium 2.5 mg/dL (1.6-2.6); Potassium 5.1 mmol/L (3.5-5.1); Sodium 126 mmol/L (136-145)
[2020-09-29] MEDS: Famotidine 20 MG TAB PO SCH (09:18)
[2020-09-29] MEDS: Gabapentin 300 MG CAP PO SCH ×2 (09:18→19:37)
[2020-09-29] MEDS: Potassium Chloride 20 MEQ TAB PO SCH (09:19)
[2020-09-29] MEDS: Empagliflozin 10 MG TAB PO SCH (09:19)
[2020-09-29] MEDS: Aspirin 81 mg Enteric Coated Tablet PO SCH (09:19)
[2020-09-29] MEDS: TICAGRELOR 90 MG TABLET PO SCH ×2 (09:19→19:38)
[2020-09-29] MEDS: Spironolactone 25 MG TAB PO SCH (09:19)
[2020-09-29] MEDS: Carvedilol 25 MG TAB PO SCH ×2 (09:19→17:12)
[2020-09-29] MEDS: Torsemide 20 MG TAB PO SCH (12:35)
[2020-09-29] MEDS ORDERED: Ondansetron PF 4 MG/2 ML Vial IVP SCH (13:15)
[2020-09-29] MEDS: Atorvastatin Calcium 40 MG TAB PO SCH (19:37)
[2020-09-29] MEDS: Ezetimibe 10 MG TAB PO SCH (19:38)
[2020-09-29] MEDS: Enoxaparin Sodium 80 MG/0.8 ML SYRINGE SC SCH (21:58)
[2020-09-30 05:29] LABS: #Lymphocytes 0.6 thou/uL (1.20-3.40); #Monocytes 0.5 thou/uL (0.11-0.59); #Neutrophils 4.2 thou/uL (1.40-6.50); %Eosinophils 0.3 % (0.0-10.0); %Lymphocytes 11.2 % (21.0-51.0); %Neutrophils 78.4 % (42.0-75.0); Hemoglobin 8.5 g/dL (12.0-16.0); Mean Corpuscular HGB CONC 30.7 g/dL (32.0-36.0); Mean Corpuscular Hemoglobin 28.1 pg (27.0-31.0); Mean Corpuscular Volume 91.8 fL (78.0-98.0); Mean Platelet Volume 7.2 fL (7.4-10.4); Platelet Count 107 thou/uL (130-400); RBC Distribution Width 20.4 % (11.5-14.5); White Blood Cell (WBC) Count 5.3 thou/uL (4.8-10.8)
[2020-09-30 05:44] LABS: Anion Gap 17 mmol/L (10-20); BUN (Urea Nitrogen) 25 mg/dL (9.8-20.1); Calc. Creatinine Clearance 27 mL/min (70-130); Calcium 9.2 mg/dL (7.8-10.44); Carbon Dioxide 24 mmol/L (23-31); Chloride 91 mmol/L (98-107); Glucose 163 mg/dL (83-110); Magnesium 2.5 mg/dL (1.6-2.6); Potassium 4.2 mmol/L (3.5-5.1); Sodium 128 mmol/L (136-145)
[2020-09-30] MEDS: Carvedilol 25 MG TAB PO SCH ×3 (09:04→18:37)
[2020-09-30] MEDS: Empagliflozin 10 MG TAB PO SCH ×2 (09:04→14:10)
[2020-09-30] MEDS: TICAGRELOR 90 MG TABLET PO SCH ×3 (09:04→20:56)
[2020-09-30] MEDS: Potassium Chloride 20 MEQ TAB PO SCH ×2 (09:04→14:11)
[2020-09-30] MEDS: Aspirin 81 mg Enteric Coated Tablet PO SCH ×2 (09:05→14:10)
[2020-09-30] MEDS: Gabapentin 300 MG CAP PO SCH ×2 (09:05→20:56)
[2020-09-30] MEDS: Famotidine 20 MG TAB PO SCH ×2 (09:06→14:10)
[2020-09-30] MEDS: Spironolactone 25 MG TAB PO SCH ×2 (09:06→14:10)
[2020-09-30] MEDS: Milrinone Lactate/D5W 20 MG in Premix Bag 1 BAG IV SCH ×3 (09:07→20:00)
[2020-09-30] MEDS: HumaLOG 300 UNITS/3 ML VIAL SC PRN (10:49)
[2020-09-30 11:14] VITALS: BMI 28.1
[2020-09-30] MEDS: Torsemide 20 MG TAB PO SCH (11:47)
[2020-09-30] MEDS: Ondansetron PF 4 MG/2 ML Vial IVP PRN (15:28)
[2020-09-30 15:57] LABS: Actual Bicarbonate (HCO3a) 21.9 mEq/L (22-28); Base Excess (BEa) -2.5 mEq/L (-2.0 to +3.0); Carboxyhemoglobin (COHb) 0.9 gm% (0.0-3.0); Hemoglobin (Hb) 9.7 g/dL (12.0-16.0); O2 Tension (PaO2), arterial 134.7 mmHg (> 70.0); Potassium - ABG Lab 4.41 mmol/L (3.70-5.30)
[2020-09-30 15:58] LABS: #Lymphocytes 0.4 thou/uL (1.20-3.40); #Monocytes 0.5 thou/uL (0.11-0.59); %Basophils 0.3 % (0.0-1.0); %Eosinophils 0.2 % (0.0-10.0); %Lymphocytes 7.1 % (21.0-51.0); %Neutrophils 83.5 % (42.0-75.0); Hemoglobin 9.5 g/dL (12.0-16.0); Mean Corpuscular HGB CONC 30.4 g/dL (32.0-36.0); Mean Corpuscular Hemoglobin 28.2 pg (27.0-31.0); Mean Corpuscular Volume 92.6 fL (78.0-98.0); Mean Platelet Volume 5.9 fL (7.4-10.4); Platelet Count 101 thou/uL (130-400); RBC Distribution Width 20.6 % (11.5-14.5); Red Blood Cell (RBC) Count 3.38 mill/uL (4.20-5.40)
[2020-09-30 15:58] LABS: Puncture Site LBA
[2020-09-30 16:09] LABS: ALT (SGPT) 14 U/L (8-55); AST (SGOT) 26 U/L (5-34); Albumin 3.6 g/dL (3.4-4.8); Alkaline Phosphatase 104 U/L (40-110); Anion Gap 21 mmol/L (10-20); BUN (Urea Nitrogen) 25 mg/dL (9.8-20.1); Bilirubin, Total 3.7 mg/dL (0.2-1.2); Calc. Creatinine Clearance 23 mL/min (70-130); Carbon Dioxide 20 mmol/L (23-31); Chloride 92 mmol/L (98-107); Globulin 4.1 g/dL (2.4-3.5); Glucose 182 mg/dL (83-110); Magnesium 2.5 mg/dL (1.6-2.6); Potassium 5.1 mmol/L (3.5-5.1); Protein, Total 7.7 g/dL (5.8-8.1); Sodium 128 mmol/L (136-145)
[2020-09-30 16:12] LABS: Lactic Acid 5.3 mmol/L (0.5-2.2)
[2020-09-30] MEDS ORDERED: Sodium Chloride 0.9% 500 ML IV SCH (16:15)
[2020-09-30] MEDS ORDERED: Albumin 25% 25 GM/100 ML BOT IVPB SCH (16:15)
[2020-09-30] MEDS ORDERED: Sodium Bicarb 50 MEQ/50 ML Abboject 8.4% SYRINGE IVP SCH (16:30)
[2020-09-30] MEDS: Albumin 25% 25 GM/100 ML BOT IVPB SCH ×2 (18:19→23:21)
[2020-09-30] MEDS ORDERED: SODIUM BICARBONATE IV SCH (18:30)
[2020-09-30] MEDS ORDERED: SODIUM CHLORIDE IV SCH (18:30)
[2020-09-30] MEDS ORDERED: [UNRECOGNIZED DRUG - OTHER] IV SCH (18:30)
[2020-09-30] MEDS: Enoxaparin Sodium 80 MG/0.8 ML SYRINGE SC SCH (20:55)
[2020-09-30] MEDS: Ezetimibe 10 MG TAB PO SCH (20:56)
[2020-09-30] MEDS: Atorvastatin Calcium 40 MG TAB PO SCH (20:56)
[2020-09-30 23:52] VITALS: BP 90/52; TEMP 99.3
[2020-10-01] MEDS ORDERED: DOBUTamine 500 mg/250 ml 500 MG in Premix Bag 1 BAG IVPB SCH (03:00)
[2020-10-01] MEDS ORDERED: Bumetanide 1 MG/4 ML VIAL IVP SCH (12:00)
== END 2020-10-01 02:04 | disposition expired | DRG 291 ==
LOC: ERS 13:21 → 2NO 18:00
PROVIDERS: ADMIT Internal Medicine; ATTEND Hospitalist
PROC: 4B02XTZ Measurement of Cardiac Defibrillator, External Approach (ICD-10-PCS; principal; 2020-09-23)
DX: I13.0 Hypertensive heart and chronic kidney disease with heart failure and stage 1 through stage 4 chronic kidney disease, or unspecified chronic kidney disease (principal); I50.43 Acute on chronic combined systolic (congestive) and diastolic (congestive) heart failure; E87.1 Hypo-osmolality and hyponatremia; N17.9 Acute kidney failure, unspecified; G93.40 Encephalopathy, unspecified; E87.2 Acidosis; Z66 Do not resuscitate; Z51.5 Encounter for palliative care; I25.5 Ischemic cardiomyopathy; I25.10 Atherosclerotic heart disease of native coronary artery without angina pectoris; I73.9 Peripheral vascular disease, unspecified; E78.00 Pure hypercholesterolemia, unspecified; E11.649 Type 2 diabetes mellitus with hypoglycemia without coma; E11.22 Type 2 diabetes mellitus with diabetic chronic kidney disease; E78.5 Hyperlipidemia, unspecified; N18.30 Chronic kidney disease, stage 3 unspecified; I50.810 Right heart failure, unspecified; I35.1 Nonrheumatic aortic (valve) insufficiency; Z95.1 Presence of aortocoronary bypass graft; Z87.891 Personal history of nicotine dependence; Z82.49 Family history of ischemic heart disease and other diseases of the circulatory system; Z89.511 Acquired absence of right leg below knee; Z95.0 Presence of cardiac pacemaker; Z90.710 Acquired absence of both cervix and uterus
CPT/HCPCS: 0240U; 36415; 36416; 36600; 71045; 80048; 80053; 81001; 82553; 82805; 83605; 83735; 83880; 83935; 84100; 84484; 85014; 85018; 85025; 85049; 87040; 93005; 93010; 93306; 94760; 95712; 95819; 95957; 96372; 96374; A4217; J0744; J1650; J1815; J1940; J2260; J2405; J3475; P9047